=== PATIENT | female | born 1955 | race Caucasian/White ===

== ENCOUNTER 2018-08-02 21:43 | Inpatient (IN) | payer MEDICARE, MEDICAID ==
[2018-08-02] MEDS ORDERED: Sodium Chloride 0.9% 1,000 ML IV SCH (22:00)
--- NOTE | 2018-08-02 22:06 | ED PDOC ---
HPI:STROKE - Time Time: 22:03 - Historian Historian: Patient, EMS - Chief Complaint Chief Complaint: Weakness - Onset Date: 08/01/18 (possibly yesterday) Time: 07:00 (unclear) - TPA Positive for Contraindication: Yes Reason tPA is not being Administered: found on the ground so possible head injury; unclear time of onset - Notes: Notes:: Pt. was found on the ground so EMS called. Pt. baseline is delayed reaction and cognitively delayed. Pt. states she has been having weakness, unclear since when. Has runny nose, nasal congestion. No chest pain, numbness, tingles, h eadaches, dizziness, abd pain, neck pain, leg or arm pain. When ambulated, was found to have an unsteady gait. NIHSS Stroke Scale - Date/Time Evaluation Performed Date Performed: 08/02/18 Time Performed: 22:00 When Was NIHSS Performed: Baseline - How Severe is the Stroke Level of Consciousness: 0=Alert LOC to Questions: 0=Both comments correct LOC to commands: 0=Obeys both correctly Best Gaze: 0=Normal Visual: 0=No visual loss Facial: 0=Normal Motor Arm - Left: 0=No drift Motor Arm - Right: 0=No drift Motor Leg - Left: 2=Falls before 5 sec Motor Leg - Right: 2=Falls before 5 sec Limb Ataxia: 1=Present Upper or Lower Sensory: 0=Normal Best Language: 0=No aphasia Dysarthia: 0=Normal articulation Extinction & Inattention (Neglect): 0=Normal, no object Score: 5 rTPA Inclusion/Exclusion - Refusal of Treatment Patient Refused Treatment: No - Inclusion Criteria for Altepase Patient is 18 years or Older: Yes The Clinical Diagnosis of Ischemic Stroke That is Causing a Potentially Disabling Neurological Deficit: No Time of Onset is Well Established to be Less Than 270 Minute Before Treatment Would Begin: No Risk/Benefit Discussed With Patient/Family Member Present: No Past Medical History Reviewed: Historical Data, Nursing Documentation, Vital Signs Vital Signs: Last Vital Signs Temp 100.2 F H 08/02/18 21:49 Pulse 82 08/02/18 21:49 Resp 16 08/02/18 21:49 BP 151/66 H 08/02/18 21:49 Pulse Ox 97 08/02/18 21:49 - Medical History PMH: Diabetes, HTN, Hypercholesterolemia - Family History Family History: States: Unknown Family Hx - Living Arrangements Living Arrangements: Residential/Assist Lvng - Immunization History Hx Tetanus Toxoid Vaccination: Yes Hx Influenza Vaccination: Yes Hx Pneumococcal Vaccination: Yes - Home Medications Home Medications: Ambulatory Orders Medication Instructions Recorded amLODIPine [Norvasc] 10 mg PO DAILY 01/08/15 Acyclovir/Hydrocortisone [Xerese 1 appl TOP PRN PRN 08/02/18 5%-1% Cream] Aspirin [Aspirin EC] 325 mg PO DAILY 08/02/18 Carvedilol [Coreg] 25 mg PO BID 08/02/18 Clozapine [Fazaclo] 200 mg PO HS 08/02/18 Colesevelam HCl [Welchol] 3.75 gm PO PRN PRN 08/02/18 Divalproex [Depakote ER(ONCE 1,250 mg PO HS 08/02/18 DAILY)] Escitalopram [Lexapro] 10 mg PO HS 08/02/18 Insulin Glargine,Hum.rec.anlog 15 units SQ HS 08/02/18 [Basaglar Kwikpen U-100] Insulin Glargine,Hum.rec.anlog 15 unit SQ HS PRN 08/02/18 [Lantus Solostar] Levothyroxine [Synthroid] 100 mcg PO DAILY 08/02/18 Linagliptin [Tradjenta] 5 mg PO HS 08/02/18 Losartan [Cozaar] 50 mg PO DAILY 08/02/18 Mv-Min/Folic/Vit K/Lycop/Coq10 1 tab PO DAILY 08/02/18 [Daily Multivitamin Capsule] Omeprazole 20 mg PO DAILY 08/02/18 Simvastatin [Zocor] 20 mg PO HS 08/02/18 metFORMIN [glucOPHAGE] 850 mg PO BID 08/02/18 - Allergies Allergies/Adverse Reactions: Allergies Allergy/AdvReac Type Severity Reaction Status Date / Time No Known Allergies Allergy Verified 08/02/18 21:49 Review of Systems ROS Statement: Except As Marked, All Systems Reviewed And Found Negative Constitutional: Positive for: Weakness ENT: Positive for: Nose Pain, Nose Congestion Neurological: Positive for: Weakness, Incoordination Physical Exam - Reviewed Nursing Documentation Reviewed: Yes Vital Signs Reviewed: Yes - Physical Exam Appears: Positive for: Non-toxic, No Acute Distress Head Exam: Positive for: ATRAUMATIC, NORMAL INSPECTION, NORMOCEPHALIC Skin: Positive for: Normal Color, Warm, DRY Eye Exam: Positive for: EOMI, Normal appearance, PERRL ENT: Positive for: Nasal Congestion. Negative for: Pharyngeal Erythema, Tonsillar Exudate Neck: Positive for: Normal, Painless ROM, Supple Cardiovascular/Chest: Positive for: Regular Rate, Rhythm Respiratory: Positive for: CNT, Normal Breath Sounds Gastrointestinal/Abdominal: Positive for: Normal Exam, Soft. Negative for: Tenderness Back: Positive for: Normal Inspection. Negative for: L CVA Tenderness, R CVA Tenderness Extremity: Negative for: Normal ROM (moving extremities, but strength 3/5 all extremities), Tenderness, Pedal Edema, Calf Tenderness Neurologic/Psych: Positive for: Alert, drying room attendant II-XII, Oriented. Negative for: Motor/Sensory Deficits (3/5 strength all extremities), Aphasia, Facial Droop - Laboratory Results Result Diagrams: 08/02/18 22:20 08/02/18 22:20 Interpretation Of Abn Labs: 17.2 wbc, 19 bands, lactate elevated - ECG ECG: Positive for: Interpreted By Me, Viewed By Me ECG Rhythm: Positive for: Normal QRS, Sinus Rhythm O2 Sat by Pulse Oximetry: 97 Pulse Ox Interpretation: Normal - Radiology X-Ray: Interpreted by Me, Read By Radiologist X-Ray Interpretation: Infiltrates (perihilar L) - CT Scan/US head Other Rad Studies (CT/US): Read By Radiologist Other Rad Interpretation: no acute - Progress ED Course And Treament: 2322: Pt. communicating. Feels better. Will need admission. Meets severe sepsis criteria. 2350: Pt. stable. Spoke with Dr. Peña who will admit. - Critical Care Total Time (In Min): 30 Documented Critical Care: Time excludes all time spent performint seperately billable procedures Disposition - Clinical Impression Clinical Impression: Pneumonia, Severe sepsis - Patient ED Disposition Is Patient to be Admitted: Yes Counseled Patient/Family Regarding: Studies Performed, Diagnosis - Disposition Disposition Time: 23:35 Condition: FAIR - POA Present On Arrival: Falls Or Trauma (possibly; found on the ground at [facility])
[2018-08-02 22:26] LABS: BASO # 0.1 K/uL (0.0-0.2); BASO % 0.5 % (0.0-2.0); EOS % 0.2 % (0.0-4.0); HEMOGLOBIN 10.7 g/dL (12.0-16.0); LYMPH # 2.3 K/uL (1.0-4.3); LYMPH % 13.3 % (20.0-40.0); MEAN CORPUSCULAR HGB CONC 32.9 g/dL (33.0-37.0); MEAN PLATELET VOLUME 8.5 fl (7.2-11.7); MONO # 1.4 K/uL (0.0-0.8); MONO % 8.2 % (0.0-10.0); NEUT # 13.4 K/uL (1.8-7.0); NEUT % 77.8 % (50.0-75.0); PLATELET COUNT 288 K/uL (130-400); RED CELL DISTRIBUTION WIDTH 15.2 % (11.5-14.5); WHITE BLOOD COUNT 17.2 K/uL (4.8-10.8)
[2018-08-02 22:28] LABS: VENOUS BLOOD GAS PCO2 40 mmHg (40-60); VENOUS BLOOD GAS PO2 51 mm/Hg (30-55); VENOUS BLOOD PH 7.43 (7.32-7.43)
[2018-08-02 22:31] LABS: INR 1.1
[2018-08-02 22:33] LABS: PARTIAL THROMBOPLASTIN TIME 31.5 Seconds (25.6-37.1)
[2018-08-02 22:36] LABS: ALB/GLOB RATIO 1.1 (1.0-2.1); ALBUMIN 3.7 g/dL (3.5-5.0); ALT/SGPT 27 U/L (9-52); AST/SGOT 32 U/L (14-36); BLOOD UREA NITROGEN 14 mg/dl (7-17); CALCIUM 9.1 mg/dL (8.4-10.2); GFR NON-AFRICAN AMERICAN > 60; HDL CHOLESTEROL 41 MG/DL (30-70)
[2018-08-02 22:48] LABS: B-TYPE NATRIURETIC PEPTIDE 994 pg/ml (0-900)
[2018-08-02 22:59] LABS: LDL CHOLESTEROL 135 mg/dL (0-129)
[2018-08-02 23:05] LABS: ANISOCYTOSIS SLIGHT; BANDS 19 % (0-2); EOSINOPHIL 1 % (0-7); HYPOCHROMIC SLIGHT; LYMPHOCYTE 18 % (20-50); MICROCYTOSIS SLIGHT; MONOCYTE 4 % (0-10); NEUTROPHIL 58 % (42-75); PLATELET ESTIMATE NORMAL (NORMAL); TOTAL CELLS COUNTED 100; TOXIC GRANULATION PRESENT
[2018-08-02] MEDS ORDERED: Piperacillin/Tazobact 3.375 GM in Sodium Chloride 0.9% 100 ML IV STA (23:22)
[2018-08-02] MEDS ORDERED: Sodium Chloride 0.9% 1,000 ML IV STA (23:24)
[2018-08-02] MEDS ORDERED: Piperacillin/Tazobact 3.375 gm Inj IVPB ONE (23:26)
[2018-08-02 23:54] LABS: SQUAMOUS EPITHIAL < 1 /hpf (0-5); URINE BILIRUBIN NEGATIVE (NEGATIVE); URINE BLOOD NEGATIVE (NEGATIVE); URINE CLARITY SLIGHTY-CLOUDY (Clear); URINE COLOR YELLOW (YELLOW); URINE GLUCOSE (UA) NEG (Normal); URINE LEUKOCYTE ESTERASE NEG Leu/uL (Negative); URINE PROTEIN >=500 mg/dL (NEGATIVE)
[2018-08-03] MEDS ORDERED: Vancomycin 1 g Inj ONE (00:41)
[2018-08-03] MEDS: Lactated Ringer's 1,000 ML IV SCH ×4 (00:52→12:41)
--- NOTE | 2018-08-03 01:10 | CP.PCM.HP ---
Addendum entered and electronically signed by Kameron Beckwith MD 08/03/18 12:21: Patient seen and examined bedside.All chart and clinical data reviewed . Case discussed with resident. Agree with assessment and plan. Patient is a 62 y/o female with PMH schizofrenia, HTN, DM sent from intermediate for fall. In ED found to be febrile with elevated WBC count , bandemia,elevated lactic acid Repeat CXR showed:Interval patchy atelectasis or infiltrate right base and left perihilar/medial basilar distributions. Stable prominent cardiac silhouette. No definite pulmonary vascular congestion. ID consult appreciated Continue vanco / Zosyn and zithromax as per ID Follow up cultures Addendum entered and electronically signed by Radha Kim MD 08/03/18 11:34: S: Pt is seen and examined by bedside this AM. Daughter Kym present [phone] Pt states that she has not been feeling well for the past few days and has been coughing since Friday. Pt is lathergic, but awake alert and oriented. Endorsing mild dyspnea and chills. O: VS reviewed, mild elevated bp afebrile GEN: lethargic and shaking HEENT: EOMI C: S1S2 no additional heart sounds L: decrease breath in the lower lobes, mild rhonchi in RLL A: obese, NT, BS+ Neuro: AAO x 3 Ext: NT, no edema A/P: 62 YO female from a intermediate, with hx of DM II, Schizophrenia and HTN is admitted for sepsis and pneumonia. Labs sig for Leukocytosis with bandemia. -cultures pending -will repeat CXR today -ID consulted, follow up recs -uncontrolled hypothyroidism; will decrease levo to 50mcg daily -cont IVF and abx (d/c rocephin) Original Note: <Hawa Tripp - Last Filed: 08/03/18 03:33> History of Present Illness - History of Present Illness History of Present Illness: History obtained from the patient and medical chart. 62 year old female brought in by EMS s/p fall. She is lethargic and diaphoretic upon evaluation in ED. Patient lives in a intermediate, states she fell in her room after she stood up from lying in bed. She states she had a cold yesterday, has been having cough. No other complaints. Unclear if patient had loss of consciousness. PMH: schizophrenia, HTN, IDDM, Hypothyroidism, gastritis Medication list from intermediate reviewed. Present on Admission - Present on Admission Any Indicators Present on Admission: No Review of Systems - Review of Systems Systems not reviewed;Unavailable: Acuity of Condition Past Patient History - Past Social History Smoking Status: Light Smoker < 10 Cigarettes Daily - CARDIAC Hx Hypercholesterolemia: Yes Hx Hypertension: Yes - ENDOCRINE/METABOLIC Hx Endocrine Disorders: Yes Hx Diabetes Mellitus Type 2: Yes Hx Hypothyroidism: Yes - PSYCHIATRIC Hx Psychophysiologic Disorder: Yes Hx Depression: Yes Hx Schizophrenia: Yes Hx Substance Use: No Meds Allergies/Adverse Reactions: Allergies Allergy/AdvReac Type Severity Reaction Status Date / Time No Known Allergies Allergy Verified 08/02/18 21:49 Physical Exam - Constitutional Appears: Other (lethargic) - Head Exam Head Exam: ATRAUMATIC, NORMAL INSPECTION, NORMOCEPHALIC - Eye Exam Eye Exam: Normal appearance, PERRL - ENT Exam ENT Exam: Mucous Membranes Moist - Neck Exam Neck exam: Positive for: Normal Inspection - Respiratory Exam Respiratory Exam: Decreased Breath Sounds (transmitted breath sounds, no rhonchi, scattered wheezing, tachypneic) - Cardiovascular Exam Cardiovascular Exam: REGULAR RHYTHM, +S1, +S2 - GI/Abdominal Exam GI & Abdominal Exam: Diminished Bowel Sounds, Normal Bowel Sounds, Soft (abominal fullness). absent: Firm, Guarding, Tenderness - Rectal Exam Rectal Exam: Deferred - Extremities Exam Extremities exam: Positive for: normal inspection. Negative for: pedal edema - Back Exam Back exam: NORMAL INSPECTION - Neurological Exam Neurological exam: Altered - Skin Skin Exam: Diaphoretic, Intact Results - Vital Signs Recent Vital Signs: Last Vital Signs Temp 98.5 F 08/03/18 00:15 Pulse 83 08/03/18 00:15 Resp 20 08/03/18 00:15 BP 149/79 08/03/18 00:15 Pulse Ox 93 L 08/03/18 00:15 - Labs Result Diagrams: 08/02/18 22:20 08/02/18 22:20 Labs: Laboratory Results - last 24 hr 08/02/18 08/02/18 08/02/18 22:20 22:20 22:20 WBC 17.2 H RBC 4.10 Hgb 10.7 L Hct 32.4 L MCV 79.0 L MCH 26.0 L MCHC 32.9 L RDW 15.2 H Plt Count 288 MPV 8.5 Neut % (Auto) 77.8 H Lymph % (Auto) 13.3 L [place] % (Auto) 8.2 Eos % (Auto) 0.2 Baso % (Auto) 0.5 Neut # (Auto) 13.4 H Lymph # (Auto) 2.3 [place] # (Auto) 1.4 H Eos # (Auto) 0.0 Baso # (Auto) 0.1 Neutrophils % (Manual) 58 Band Neutrophils % 19 H* Lymphocytes % (Manual) 18 L Monocytes % (Manual) 4 Eosinophils % (Manual) 1 Toxic Granulation Present Platelet Estimate Normal Hypochromasia (manual) Slight Anisocytosis (manual) Slight Microcytosis (manual) Slight PT 13.0 INR 1.1 APTT 31.5 pO2 VBG pH VBG pCO2 VBG HCO3 VBG Total CO2 VBG O2 Sat (Calc) VBG Base Excess VBG Potassium Glucose Lactate FiO2 Sodium 136 Potassium 4.0 Chloride 100 Carbon Dioxide 22 Anion Gap 18 BUN 14 Creatinine 0.6 L Est GFR ( Amer) > 60 Est GFR (Non-Af Amer) > 60 Random Glucose 177 H Calcium 9.1 Total Bilirubin 0.3 AST 32 ALT 27 Alkaline Phosphatase 79 Troponin I 0.0170 NT-Pro-B Natriuret Pep 994 H Total Protein 7.1 Albumin 3.7 Globulin 3.5 Albumin/Globulin Ratio 1.1 Triglycerides 294 H Cholesterol 244 H LDL Cholesterol Direct 135 H HDL Cholesterol 41 Venous Blood Potassium Urine Color Urine Clarity Urine pH Ur Specific [place] Urine Protein Urine Glucose (UA) Urine Ketones Urine Blood Urine Nitrate Urine Bilirubin Urine Urobilinogen Ur Leukocyte Esterase Urine RBC (Auto) Urine Microscopic WBC Ur Squamous Epith Cells Influenza Typ A,B (EIA) Blood Type Antibody Screen BBK History Checked 08/02/18 08/02/18 08/02/18 22:20 22:24 22:58 WBC RBC Hgb Hct MCV MCH MCHC RDW Plt Count MPV Neut % (Auto) Lymph % (Auto) [place] % (Auto) Eos % (Auto) Baso % (Auto) Neut # (Auto) Lymph # (Auto) [place] # (Auto) Eos # (Auto) Baso # (Auto) Neutrophils % (Manual) Band Neutrophils % Lymphocytes % (Manual) Monocytes % (Manual) Eosinophils % (Manual) Toxic Granulation Platelet Estimate Hypochromasia (manual) Anisocytosis (manual) Microcytosis (manual) PT INR APTT pO2 51 VBG pH 7.43 VBG pCO2 40 VBG HCO3 26.2 VBG Total CO2 27.7 VBG O2 Sat (Calc) 87.7 H VBG Base Excess 2.0 VBG Potassium 4.0 Glucose 188 H Lactate 3.2 H FiO2 21.0 Sodium 133.0 Potassium Chloride 99.0 Carbon Dioxide Anion Gap BUN Creatinine Est GFR ( Amer) Est GFR (Non-Af Amer) Random Glucose Calcium Total Bilirubin AST ALT Alkaline Phosphatase Troponin I NT-Pro-B Natriuret Pep Total Protein Albumin Globulin Albumin/Globulin Ratio Triglycerides Cholesterol LDL Cholesterol Direct HDL Cholesterol Venous Blood Potassium 4.0 Urine Color Yellow Urine Clarity Slighty-cloudy Urine pH 6.0 Ur Specific [place] 1.017 Urine Protein >=500 Urine Glucose (UA) Neg Urine Ketones Trace Urine Blood Negative Urine Nitrate Negative Urine Bilirubin Negative Urine Urobilinogen 4.0 H Ur Leukocyte Esterase Neg Urine RBC (Auto) 5 H Urine Microscopic WBC 1 Ur Squamous Epith Cells < 1 Influenza Typ A,B (EIA) Blood Type A POSITIVE Antibody Screen Negative BBK History Checked No verified bt 08/02/18 23:20 WBC RBC Hgb Hct MCV MCH MCHC RDW Plt Count MPV Neut % (Auto) Lymph % (Auto) [place] % (Auto) Eos % (Auto) Baso % (Auto) Neut # (Auto) Lymph # (Auto) [place] # (Auto) Eos # (Auto) Baso # (Auto) Neutrophils % (Manual) Band Neutrophils % Lymphocytes % (Manual) Monocytes % (Manual) Eosinophils % (Manual) Toxic Granulation Platelet Estimate Hypochromasia (manual) Anisocytosis (manual) Microcytosis (manual) PT INR APTT pO2 VBG pH VBG pCO2 VBG HCO3 VBG Total CO2 VBG O2 Sat (Calc) VBG Base Excess VBG Potassium Glucose Lactate FiO2 Sodium Potassium Chloride Carbon Dioxide Anion Gap BUN Creatinine Est GFR ( Amer) Est GFR (Non-Af Amer) Random Glucose Calcium Total Bilirubin AST ALT Alkaline Phosphatase Troponin I NT-Pro-B Natriuret Pep Total Protein Albumin Globulin Albumin/Globulin Ratio Triglycerides Cholesterol LDL Cholesterol Direct HDL Cholesterol Venous Blood Potassium Urine Color Urine Clarity Urine pH Ur Specific [place] Urine Protein Urine Glucose (UA) Urine Ketones Urine Blood Urine Nitrate Urine Bilirubin Urine Urobilinogen Ur Leukocyte Esterase Urine RBC (Auto) Urine Microscopic WBC Ur Squamous Epith Cells Influenza Typ A,B (EIA) Negative for flu a/b Blood Type Antibody Screen BBK History Checked Assessment & Plan - Assessment and Plan (Free Text) Assessment: 62 year old female admitted s/p fall. Patient is febrile with leukocytosis +bands. She is diaphoretic and tachypneic and dyspneic in ED. O2 sat 94% on 2 L NC. Sepsis thought to be secondary to pneumonia. UA +proteinuria. Flu negative. CT Head report pending. CXR report pending. #Severe sepsis likely secondary to pneumonia #AMS #Proteinuria #IDDM #HTN #Hypothyroidism #DVT prophylaxis -Rocephin/Azithromycin -IVF @ 250cc/hr -Resume home medications -CXR report pending -Follow up procalcitonin, tsh, lactic acid and cultures Case seen, examined and discussed with attending <Leonardo Peña - Last Filed: 08/03/18 04:10> Results - Vital Signs Recent Vital Signs: Last Vital Signs Temp 97.9 F 08/03/18 02:54 Pulse 79 08/03/18 02:54 Resp 20 08/03/18 02:54 BP 145/77 08/03/18 02:54 Pulse Ox 93 L 08/03/18 02:54 - Labs Result Diagrams: 08/02/18 22:20 08/02/18 22:20 Labs: Laboratory Results - last 24 hr 08/02/18 08/02/18 08/02/18 22:20 22:20 22:20 WBC 17.2 H RBC 4.10 Hgb 10.7 L Hct 32.4 L MCV 79.0 L MCH 26.0 L MCHC 32.9 L RDW 15.2 H Plt Count 288 MPV 8.5 Neut % (Auto) 77.8 H Lymph % (Auto) 13.3 L [place] % (Auto) 8.2 Eos % (Auto) 0.2 Baso % (Auto) 0.5 Neut # (Auto) 13.4 H Lymph # (Auto) 2.3 [place] # (Auto) 1.4 H Eos # (Auto) 0.0 Baso # (Auto) 0.1 Neutrophils % (Manual) 58 Band Neutrophils % 19 H* Lymphocytes % (Manual) 18 L Monocytes % (Manual) 4 Eosinophils % (Manual) 1 Toxic Granulation Present Platelet Estimate Normal Hypochromasia (manual) Slight Anisocytosis (manual) Slight Microcytosis (manual) Slight PT 13.0 INR 1.1 APTT 31.5 pO2 VBG pH VBG pCO2 VBG HCO3 VBG Total CO2 VBG O2 Sat (Calc) VBG Base Excess VBG Potassium Glucose Lactate FiO2 Sodium 136 Potassium 4.0 Chloride 100 Carbon Dioxide 22 Anion Gap 18 BUN 14 Creatinine 0.6 L Est GFR ( Amer) > 60 Est GFR (Non-Af Amer) > 60 Random Glucose 177 H Calcium 9.1 Total Bilirubin 0.3 AST 32 ALT 27 Alkaline Phosphatase 79 Troponin I 0.0170 NT-Pro-B Natriuret Pep 994 H Total Protein 7.1 Albumin 3.7 Globulin 3.5 Albumin/Globulin Ratio 1.1 Triglycerides 294 H Cholesterol 244 H LDL Cholesterol Direct 135 H HDL Cholesterol 41 Venous Blood Potassium Urine Color Urine Clarity Urine pH Ur Specific [place] Urine Protein Urine Glucose (UA) Urine Ketones Urine Blood Urine Nitrate Urine Bilirubin Urine Urobilinogen Ur Leukocyte Esterase Urine RBC (Auto) Urine Microscopic WBC Ur Squamous Epith Cells Influenza Typ A,B (EIA) Blood Type Antibody Screen BBK History Checked 08/02/18 08/02/18 08/02/18 22:20 22:24 22:58 WBC RBC Hgb Hct MCV MCH MCHC RDW Plt Count MPV Neut % (Auto) Lymph % (Auto) [place] % (Auto) Eos % (Auto) Baso % (Auto) Neut # (Auto) Lymph # (Auto) [place] # (Auto) Eos # (Auto) Baso # (Auto) Neutrophils % (Manual) Band Neutrophils % Lymphocytes % (Manual) Monocytes % (Manual) Eosinophils % (Manual) Toxic Granulation Platelet Estimate Hypochromasia (manual) Anisocytosis (manual) Microcytosis (manual) PT INR APTT pO2 51 VBG pH 7.43 VBG pCO2 40 VBG HCO3 26.2 VBG Total CO2 27.7 VBG O2 Sat (Calc) 87.7 H VBG Base Excess 2.0 VBG Potassium 4.0 Glucose 188 H Lactate 3.2 H FiO2 21.0 Sodium 133.0 Potassium Chloride 99.0 Carbon Dioxide Anion Gap BUN Creatinine Est GFR ( Amer) Est GFR (Non-Af Amer) Random Glucose Calcium Total Bilirubin AST ALT Alkaline Phosphatase Troponin I NT-Pro-B Natriuret Pep Total Protein Albumin Globulin Albumin/Globulin Ratio Triglycerides Cholesterol LDL Cholesterol Direct HDL Cholesterol Venous Blood Potassium 4.0 Urine Color Yellow Urine Clarity Slighty-cloudy Urine pH 6.0 Ur Specific [place] 1.017 Urine Protein >=500 Urine Glucose (UA) Neg Urine Ketones Trace Urine Blood Negative Urine Nitrate Negative Urine Bilirubin Negative Urine Urobilinogen 4.0 H Ur Leukocyte Esterase Neg Urine RBC (Auto) 5 H Urine Microscopic WBC 1 Ur Squamous Epith Cells < 1 Influenza Typ A,B (EIA) Blood Type A POSITIVE Antibody Screen Negative BBK History Checked No verified bt 08/02/18 08/03/18 23:20 02:09 WBC RBC Hgb Hct MCV MCH MCHC RDW Plt Count MPV Neut % (Auto) Lymph % (Auto) [place] % (Auto) Eos % (Auto) Baso % (Auto) Neut # (Auto) Lymph # (Auto) [place] # (Auto) Eos # (Auto) Baso # (Auto) Neutrophils % (Manual) Band Neutrophils % Lymphocytes % (Manual) Monocytes % (Manual) Eosinophils % (Manual) Toxic Granulation Platelet Estimate Hypochromasia (manual) Anisocytosis (manual) Microcytosis (manual) PT INR APTT pO2 51 VBG pH 7.39 VBG pCO2 41 VBG HCO3 24.4 VBG Total CO2 26.1 VBG O2 Sat (Calc) 87.5 H VBG Base Excess -0.2 L VBG Potassium 3.7 Glucose 182 H Lactate 2.8 H FiO2 21.0 Sodium 135.0 Potassium Chloride 103.0 Carbon Dioxide Anion Gap BUN Creatinine Est GFR ( Amer) Est GFR (Non-Af Amer) Random Glucose Calcium Total Bilirubin AST ALT Alkaline Phosphatase Troponin I NT-Pro-B Natriuret Pep Total Protein Albumin Globulin Albumin/Globulin Ratio Triglycerides Cholesterol LDL Cholesterol Direct HDL Cholesterol Venous Blood Potassium 3.7 Urine Color Urine Clarity Urine pH Ur Specific [place] Urine Protein Urine Glucose (UA) Urine Ketones Urine Blood Urine Nitrate Urine Bilirubin Urine Urobilinogen Ur Leukocyte Esterase Urine RBC (Auto) Urine Microscopic WBC Ur Squamous Epith Cells Influenza Typ A,B (EIA) Negative for flu a/b Blood Type Antibody Screen BBK History Checked Attending/Attestation - Attestation I have personally seen and examined this patient.: Yes I have fully participated in the care of the patient.: Yes I have reviewed all pertinent clinical information: Yes Notes (Text): 08/03/18 03:46 I saw and examined this patient shoulder to shoulder with Dr Tripp. I agree with the assessment and plan. This is a 62 years old female from a intermediate, with hx of DM II, Schizophrenia and HTN who was found in an altered mental status,generalized weakness, unsteady gait, coughing, running nose and not able to give a good hx. Comes with fever, leukocytosis with left shift and elevated lactate. A&P #. AMA due to Toxic Encephalopathy from the sepsis - Treat sepsis - Monitor vital signs #. Pneumonia with sepsis. Probably atypical. look for bacteremia - Consult Dr Castorena ID - Blood culture - Urine culture - Procalcitonin - Cold agglutinins - Azithromycin - Ceftriaxone - Vancomycin - IV fluids - Follow lactate #.DM II - Continue Home Diabetic medication - Lispro insulin Sliding Scale according to Accucheck - Levemir - HbA1c Leonardo Peña MD 08/03/18 04:09
[2018-08-03] MEDS ORDERED: ACYCLOVIR TOP PRN (01:25)
[2018-08-03] MEDS ORDERED: HYDROCORTISONE TOP PRN (01:25)
[2018-08-03] MEDS ORDERED: INSULIN GLARGINE HUM REC ANLOG 15 UNIT SQ PRN (01:25)
[2018-08-03] MEDS ORDERED: COLESEVELAM HCL 3.75 GM PO PRN (01:25)
[2018-08-03 02:16] LABS: VENOUS BLOOD GAS BASE EXCESS -0.2 mmol/L (0.0-2.0); VENOUS BLOOD GAS PCO2 41 mmHg (40-60); VENOUS BLOOD GAS PO2 51 mm/Hg (30-55); VENOUS BLOOD PH 7.39 (7.32-7.43)
[2018-08-03] MEDS ORDERED: Glucagon Recombinant 1 mg Inj IM PRN (03:35)
[2018-08-03] MEDS ORDERED: Dextrose 50% SYRINGE Inj (50 ml) IV PRN (03:35)
[2018-08-03] MEDS ORDERED: Sodium Chloride 0.9% 1,000 ML IV SCH ×2 (03:38→13:30)
[2018-08-03 05:32] LABS: BASO # 0.1 K/uL (0.0-0.2); BASO % 0.7 % (0.0-2.0); EOS # 0.1 K/uL (0.0-0.7); EOS % 0.5 % (0.0-4.0); LYMPH # 2.1 K/uL (1.0-4.3); LYMPH % 15.7 % (20.0-40.0); MEAN CELL VOLUME 79.3 fl (81.0-99.0); MEAN CORPUSCULAR HEMOGLOBIN 26.8 pg (27.0-31.0); MEAN CORPUSCULAR HGB CONC 33.8 g/dL (33.0-37.0); MEAN PLATELET VOLUME 8.3 fl (7.2-11.7); MONO # 1.2 K/uL (0.0-0.8); MONO % 8.5 % (0.0-10.0); NEUT # 10.1 K/uL (1.8-7.0); NEUT % 74.6 % (50.0-75.0); NRBC % 0.1 % (0.0-0.0); RBC 3.75 Mil/uL (3.80-5.20); RED CELL DISTRIBUTION WIDTH 15.3 % (11.5-14.5); WHITE BLOOD COUNT 13.6 K/uL (4.8-10.8)
[2018-08-03] MEDS: Albuterol 0.083% Inhal Sol (2.5 mg/3 mL) UD INH SCH ×4 (05:40→19:40)
[2018-08-03] MEDS ORDERED: Levothyroxine 100 MCG TAB PO SCH (06:30)
[2018-08-03 07:43] LABS: BLOOD UREA NITROGEN 12 mg/dl (7-17); CALCIUM 8.7 mg/dL (8.4-10.2); GFR NON-AFRICAN AMERICAN > 60
[2018-08-03] MEDS ORDERED: Sodium Chloride 3% for Inhalation 4 ML VIAL.NEB IH PRN (08:08)
[2018-08-03] MEDS ORDERED: LYCOP PO SCH (09:00)
[2018-08-03] MEDS ORDERED: Pantoprazole 40 mg EC Tab PO SCH (09:00)
[2018-08-03] MEDS ORDERED: VIT K PO SCH (09:00)
[2018-08-03] MEDS ORDERED: COQ10 PO SCH (09:00)
[2018-08-03] MEDS ORDERED: FOLIC PO SCH (09:00)
[2018-08-03] MEDS ORDERED: MV MIN PO SCH (09:00)
[2018-08-03] MEDS: Insulin Lispro (humaLOG) 100 Units/ml Inj SC SCH ×4 (10:31→21:36)
[2018-08-03] MEDS: Azithromycin 500 MG in Sodium Chloride 0.9% 250 ML IVPB SCH (10:32)
[2018-08-03] MEDS: Multivitamin With Minerals Tab PO SCH (10:38)
[2018-08-03] MEDS: Aspirin 325 mg EC Tablets PO SCH (10:39)
[2018-08-03] MEDS: Pantoprazole 20 mg EC Tab PO SCH (10:39)
[2018-08-03] MEDS: Enoxaparin 40 mg Syringe SC SCH (10:40)
--- NOTE | 2018-08-03 10:44 | RAD ---
Date of service: 08/03/2018 HISTORY: cough COMPARISON: Portable chest 08/02/2018. TECHNIQUE: Chest PA and lateral FINDINGS: LUNGS: Patient rotated toward the right. Patchy airspace disease developing in the right base and is borderline at the left perihilar and medial basilar regions. PLEURA: No significant pleural effusion identified. No pneumothorax apparent. CARDIOVASCULAR: No aortic atherosclerotic calcification present. Prominent cardiac silhouette remains. no pulmonary vascular congestion. OSSEOUS STRUCTURES: No significant abnormalities. VISUALIZED UPPER ABDOMEN: Normal. OTHER FINDINGS: None. IMPRESSION: Interval patchy atelectasis or infiltrate right base and left perihilar/medial basilar distributions. Stable prominent cardiac silhouette. No definite pulmonary vascular congestion.
--- NOTE | 2018-08-03 10:51 | RAD ---
Date of service: 08/02/2018 HISTORY: Code Stroke COMPARISON: Chest radiographs 03/20/2012. FINDINGS: LUNGS: Patient rotated toward the right accentuating left hilar vascular markings. No acute airspace disease identified bilaterally. PLEURA: No significant pleural effusion identified, no pneumothorax apparent. CARDIOVASCULAR: Calcific atherosclerotic changes are seen related to the thoracic aorta. Normal cardiac size. No pulmonary vascular congestion. OSSEOUS STRUCTURES: No significant abnormalities. VISUALIZED UPPER ABDOMEN: Normal. OTHER FINDINGS: None. IMPRESSION: No interval acute cardiopulmonary disease appreciated.
--- NOTE | 2018-08-03 10:55 | CP.PCM.CON ---
History of Present Illness - History of Present Illness History of Present Illness: 62 year old female brought in by EMS s/p fall. [facility], and fell in her room She states she had a cold yesterday, has been having cough. No other complaints. admitted to [facility] with sepsis and pneumonia with impending resp failure ID consulted for this appears weak SOB and septic- Vanco / Zosyn added for possible aspiration pneumonia in a jail setting Cont z max for now pending cultures and serologies PMH: schizophrenia, HTN, IDDM, Hypothyroidism, gastritis Medication list reviewed. Review of Systems - Review of Systems Systems not reviewed;Unavailable: Altered Mental Status All systems: reviewed and no additional remarkable complaints except - Constitutional Constitutional: As Per HPI, Chills, Fever - EENT Eyes: absent: As Per HPI, Blind Spots, Blurred Vision, Change in Vision, Decreased Night Vision, Diplopia, Discharge, Dry Eye, Exophthalmos, Floaters, Irritation, Itchy Eyes, Loss of Peripheral Vision, Pain, Photophobia, Requires Corrective Lenses, Sees Flashes, Spots in Vision, Tunnel Vision, Other Visual Disturbances, Loss of Vision, Other Ears: absent: As Per HPI, Decreased Hearing, Ear Discharge, Ear Pain, Tinnitus, Abnormal Hearing, Disequilibrium, Dizziness, Other Nose/Mouth/Throat: absent: As Per HPI, Epistaxis, Nasal Congestion, Nasal Discharge, Nasal Obstruction, Nasal Trauma, Nose Pain, Post Nasal Drip, Sinus Pain, Sinus Pressure, Bleeding Gums, Change in Voice, Dental Pain, Dry Mouth, Dysphagia, Halitosis, Hoarsness, Lip Swelling, Mouth Lesions, Mouth Pain, Odynophagia, Sore Throat, Throat Swelling, Tongue Swelling, Facial Pain, Neck Pain, Neck Mass, Other - Breasts Breasts: absent: As Per HPI, Change in Shape, Mass, Pain, Nipple Discharge, Nipple Inversion, Skin Changes, Swelling, Other - Cardiovascular Cardiovascular: absent: As Per HPI, Acrocyanosis, Chest Pain, Chest Pain at Rest, Chest Pain with Activity, Claudication, Diaphoresis, Dyspnea, Dyspnea on E xertion, Edema, Irregular Heart Rhythm, Pain Radiating to Arm/Neck/Jaw, Leg Edema, Leg Ulcers, Lightheadedness, Orthopnea, Palpitations, Paroxysmal Nocturnal Dyspnea, Pedal Edema, Radiating Pain, Rapid Heart Rate, Slow Heart Rate, Syncope, Other - Respiratory Respiratory: As Per HPI - Gastrointestinal Gastrointestinal: absent: As Per HPI, Abdominal Pain, Belching, Bloating, Change in Bowel Habits, Change in Stool Character, Coffee Ground Emesis, Constipation, Cramping, Diarrhea, Dyspepsia, Dysphagia, Early Satiety, Excessive Flatus, Fecal Incontinence, Heartburn, Hematemesis, Hematochezia, Loose Stools, Melena, [place] sea, Odynophagia, Temesmus, Vomiting, Other - Genitourinary Genitourinary: absent: As Per HPI, Change in Urinary Stream, Difficulty Urinating, Dysuria, Flank Pain, Hematuria, Pyuria, Nocturia, Urinary Incontinence, Urinary Frequency, Urinary Hesitance, Urinary Urgency, Voiding Freq/Small Amts, Freq UTI, Hx Renal/Bladder Calculi, Hx /Renal Surgery, Bladder Distension, Other - Reproductive: Female Reproductive:Female: absent: As Per HPI, Amenorrhea, Amenorrhea/ Control, Currently Menstual, Cycle <21 Days, Cycle >35 Days, Cycle Variable, Menses 1-7 Days, Menses >/= 8 Days, Menses Variable, Cycle > 4 Weeks Between, No Menses for 6 Months, Heavy Menses, Light Menses, Normal Menses, Spotting Between Cycles, S/P Hysterectomy, Menopausal, Post Menopausal, Premenarche, Abnormal Vaginal Bleeding, Dysmenorrhea, Dyspareunia, Genital Lesions, Genital Pruritis, Pelvic Pain, Prolapse Symptoms, Sexual Dysfunction, Vaginal Discharge, Vaginal Dryness, Vaginal Odor, Vaginal Pruritis, Other - Menstruation Menstruation: absent: As Per HPI, Amenorrhea, Amenorrhea/ Control, Cur rently Menstual, Cycle <21 Days, Cycle >35 Days, Cycle Variable, Menses 1-7 Days, Menses >/= 8 Days, Menses Variable, Cycle > 4 Weeks Between, No Menses for 6 Months, Heavy Menses, Light Menses, Normal Menses, Spotting Between Cycles, S/P Hysterectomy, Menopausal, Post Menopausal, Premenarche, Abnormal Vaginal Bleeding, Dysmenorrhea, Other - Musculoskeletal Musculoskeletal: absent: As Per HPI, Abnormal Gait, Arthralgias, Atrophy, Back Pain, Deformity, Joint Swelling, Limited Range of Motion, Loss of Height, Muscle Cramps, Muscle Weakness, Myalgias, Neck Pain, Numbness, Radiating Pain into Limb, Stiffness, Tingling, Other - Integumentary Integumentary: absent: As Per HPI, Acne, Alopecia, Bleeding Lesions, Change in Hair, Change in Nails, Change in Pigmentation, Changing Lesions, Dry Skin, Erythema, Furuncle, Hirsutism, Lesions, New Lesions, Non-Healing Lesions, Photosensitivity, Pruritus, Rash, Skin Pain, Skin Ulcer, Sores, Striae, Swelling, Unusual Bruising, Wounds, Jaundice, Other - Neurological Neurological: As Per HPI - Psychiatric Psychiatric: As Per HPI - Endocrine Endocrine: absent: As Per HPI, Change in Body Appearance, Change in Libido, Cold Intolorance, Deepening of Voice, Excessive Sweating, Fatigue, Flushing, Heat Intolorance, Increase in Ring/Shoe/Hat Size, Palpitations, Polydipsia, Polyphagia, Polyuria, Other - Hematologic/Lymphatic Hematologic: absent: As Per HPI, Easy Bleeding, Easy Bruising, Lymphadenopathy, Other Past Patient History - Past Medical History & Family History Past Medical History?: Yes - Past Social History Smoking Status: Light Smoker < 10 Cigarettes Daily - CARDIAC Hx Hypercholesterolemia: Yes Hx Hypertension: Yes - PULMONARY Hx Respiratory Disorders: Yes Hx Pneumonia: Yes - NEUROLOGICAL Hx Neurological Disorder: No - HEENT Hx HEENT Problems: No - RENAL Hx Chronic Kidney Disease: No - ENDOCRINE/METABOLIC Hx Endocrine Disorders: Yes Hx Diabetes Mellitus Type 2: Yes Hx Hypothyroidism: Yes - HEMATOLOGICAL/ONCOLOGICAL Hx Blood Disorders: No Hx AIDS: No Hx Human Immunodeficiency Virus (HIV): No - INTEGUMENTARY Hx Dermatological Problems: No - MUSCULOSKELETAL/RHEUMATOLOGICAL Hx Musculoskeletal Disorders: No Hx Falls: Yes - GASTROINTESTINAL Hx Gastritis: Yes - GENITOURINARY/GYNECOLOGICAL Hx Genitourinary Disorders: No - PSYCHIATRIC Hx Psychophysiologic Disorder: Yes Hx Depression: Yes Hx Schizophrenia: Yes Hx Substance Use: No - SURGICAL HISTORY Hx Surgeries: No - ANESTHESIA Hx Anesthesia: No Meds Allergies/Adverse Reactions: Allergies Allergy/AdvReac Type Severity Reaction Status Date / Time No Known Allergies Allergy Verified 08/02/18 21:49 - Medications Medications: Current Medications Acetaminophen (Tylenol 325mg Tab) 650 mg PO Q6 PRN PRN Reason: Fever >100.4 F Albuterol Sulfate (Albuterol 0.083% Inhal Veronica (2.5 Mg/3 Ml) Ud) 2.5 mg INH RQ6 [facility] Last Admin: 08/03/18 08:04 Dose: 2.5 mg Amlodipine Besylate (Norvasc) 10 mg PO DAILY [facility] Last Admin: 08/03/18 10:41 Dose: 10 mg Aspirin (Ecotrin) 325 mg PO DAILY [facility] Last Admin: 08/03/18 10:39 Dose: 325 mg Atorvastatin Calcium (Lipitor) 10 mg PO HS [facility] Carvedilol (Coreg) 25 mg PO BID [facility] Last Admin: 08/03/18 10:39 Dose: 25 mg Dextrose (Dextrose 50% Inj) 0 ml IV STAT PRN; Protocol PRN Reason: Hypoglycemia Protocol Dextrose (Glutose 15) 0 gm PO ONCE PRN; Protocol PRN Reason: Hypoglycemia Protocol Divalproex Sodium (Depakote Er(Once Daily)) 1,250 mg PO HS [facility] Enoxaparin Sodium (Lovenox) 40 mg SC DAILY [facility]; Protocol Last Admin: 08/03/18 10:40 Dose: 40 mg Escitalopram Oxalate (Lexapro) 10 mg PO HS [facility] Fluticasone Propionate (Flonase) 2 spr ANIKA DAILY [facility] Last Admin: 08/03/18 10:40 Dose: 2 spr Glucagon (Glucagen Diagnostic Kit) 0 mg IM STAT PRN; Protocol PRN Reason: Hypoglycemia Protocol Home Med (Acyclovir/Hydrocortisone [Xerese 5%-1% Cream]) 1 appl TOP PRN PRN PRN Reason: Itching / Pruritus Home Med (Clozapine [Fazaclo]) 200 mg PO HS [facility] Home Med (Colesevelam Hcl [Welchol]) 3.75 gm PO PRN PRN PRN Reason: Serum glucose Lactated Ringer's (Lactated Ringer's) 1,000 mls @ 250 mls/hr IV .Q4H [facility] Last Admin: 08/03/18 10:44 Dose: 250 mls/hr Azithromycin 500 mg/ Sodium (Chloride) 250 mls @ 250 mls/hr IVPB DAILY [facility]; Protocol Last Admin: 08/03/18 10:32 Dose: 250 mls/hr Ceftriaxone Sodium 1 gm/ (Sodium Chloride) 100 mls @ 100 mls/hr IVPB DAILY [facility]; Protocol Last Admin: 08/03/18 10:42 Dose: 100 mls/hr Insulin Detemir (Levemir) 15 units SC HS [facility] Insulin Human Lispro (Humalog) 0 units SC ACHS [facility]; Protocol Last Admin: 08/03/18 10:31 Dose: Not Given Levothyroxine Sodium (Synthroid) 50 mcg PO DAILY@0630 [facility] Losartan Potassium (Cozaar) 50 mg PO DAILY [facility] Last Admin: 08/03/18 10:38 Dose: 50 mg Multivitamins/Minerals (Therapeutic-M Tab) 1 tab PO DAILY [facility] Last Admin: 08/03/18 10:38 Dose: 1 tab Pantoprazole Sodium (Protonix Ec Tab) 20 mg PO DAILY [facility] Last Admin: 08/03/18 10:39 Dose: 20 mg Sitagliptin Phosphate (Januvia) 100 mg PO HS [facility] Physical Exam - Constitutional Appears: Toxic, Confused, Chronically Ill - Head Exam Head Exam: ATRAUMATIC, NORMAL INSPECTION, NORMOCEPHALIC - Eye Exam Eye Exam: EOMI, PERRL. absent: Scleral icterus - ENT Exam ENT Exam: Mucous Membranes Dry, Normal External Ear Exam - Neck Exam Neck exam: Negative for: Lymphadenopathy - Respiratory Exam Respiratory Exam: Decreased Breath Sounds, Prolonged Expiratory Phase, Rales, Rhonchi - Cardiovascular Exam Cardiovascular Exam: Tachycardia, +S1, +S2 - GI/Abdominal Exam GI & Abdominal Exam: Diminished Bowel Sounds, Soft. absent: Tenderness - Rectal Exam Rectal Exam: Deferred - Exam Exam: NORMAL INSPECTION - Extremities Exam Extremities exam: Negative for: calf tenderness, pedal edema - Back Exam Back exam: absent: CVA tenderness (L), CVA tenderness (R) - Neurological Exam Neurological exam: Alert, CN II-XII Intact, Oriented x3, Reflexes Normal - Psychiatric Exam Psychiatric exam: Depressed - Skin Skin Exam: Dry Results - Vital Signs Recent Vital Signs: Last Vital Signs Temp 99.7 F H 08/03/18 08:23 Pulse 90 08/03/18 10:41 Resp 18 08/03/18 08:23 BP 162/74 H 08/03/18 10:41 Pulse Ox 97 08/03/18 08:23 - Labs Result Diagrams: 08/03/18 04:25 08/03/18 04:25 Labs: Laboratory Results - last 24 hr 08/02/18 08/02/18 08/02/18 22:20 22:20 22:20 WBC 17.2 H RBC 4.10 Hgb 10.7 L Hct 32.4 L MCV 79.0 L MCH 26.0 L MCHC 32.9 L RDW 15.2 H Plt Count 288 MPV 8.5 Neut % (Auto) 77.8 H Lymph % (Auto) 13.3 L [place] % (Auto) 8.2 Eos % (Auto) 0.2 Baso % (Auto) 0.5 Neut # (Auto) 13.4 H Lymph # (Auto) 2.3 [place] # (Auto) 1.4 H Eos # (Auto) 0.0 Baso # (Auto) 0.1 Neutrophils % (Manual) 58 Band Neutrophils % 19 H* Lymphocytes % (Manual) 18 L Monocytes % (Manual) 4 Eosinophils % (Manual) 1 Toxic Granulation Present Platelet Estimate Normal Hypochromasia (manual) Slight Anisocytosis (manual) Slight Microcytosis (manual) Slight PT 13.0 INR 1.1 APTT 31.5 pO2 VBG pH VBG pCO2 VBG HCO3 VBG Total CO2 VBG O2 Sat (Calc) VBG Base Excess VBG Potassium Glucose Lactate FiO2 Sodium 136 Potassium 4.0 Chloride 100 Carbon Dioxide 22 Anion Gap 18 BUN 14 Creatinine 0.6 L Est GFR ( Amer) > 60 Est GFR (Non-Af Amer) > 60 Random Glucose 177 H Lactic Acid Calcium 9.1 Total Bilirubin 0.3 AST 32 ALT 27 Alkaline Phosphatase 79 Troponin I 0.0170 NT-Pro-B Natriuret Pep 994 H Total Protein 7.1 Albumin 3.7 Globulin 3.5 Albumin/Globulin Ratio 1.1 Triglycerides 294 H Cholesterol 244 H LDL Cholesterol Direct 135 H HDL Cholesterol 41 TSH 3rd Generation Venous Blood Potassium Urine Color Urine Clarity Urine pH Ur Specific [place] Urine Protein Urine Glucose (UA) Urine Ketones Urine Blood Urine Nitrate Urine Bilirubin Urine Urobilinogen Ur Leukocyte Esterase Urine RBC (Auto) Urine Microscopic WBC Ur Squamous Epith Cells Influenza Typ A,B (EIA) Blood Type Antibody Screen BBK History Checked 08/02/18 08/02/18 08/02/18 22:20 22:24 22:58 WBC RBC Hgb Hct MCV MCH MCHC RDW Plt Count MPV Neut % (Auto) Lymph % (Auto) [place] % (Auto) Eos % (Auto) Baso % (Auto) Neut # (Auto) Lymph # (Auto) [place] # (Auto) Eos # (Auto) Baso # (Auto) Neutrophils % (Manual) Band Neutrophils % Lymphocytes % (Manual) Monocytes % (Manual) Eosinophils % (Manual) Toxic Granulation Platelet Estimate Hypochromasia (manual) Anisocytosis (manual) Microcytosis (manual) PT INR APTT pO2 51 VBG pH 7.43 VBG pCO2 40 VBG HCO3 26.2 VBG Total CO2 27.7 VBG O2 Sat (Calc) 87.7 H VBG Base Excess 2.0 VBG Potassium 4.0 Glucose 188 H Lactate 3.2 H FiO2 21.0 Sodium 133.0 Potassium Chloride 99.0 Carbon Dioxide Anion Gap BUN Creatinine Est GFR ( Amer) Est GFR (Non-Af Amer) Random Glucose Lactic Acid Calcium Total Bilirubin AST ALT Alkaline Phosphatase Troponin I NT-Pro-B Natriuret Pep Total Protein Albumin Globulin Albumin/Globulin Ratio Triglycerides Cholesterol LDL Cholesterol Direct HDL Cholesterol TSH 3rd Generation Venous Blood Potassium 4.0 Urine Color Yellow Urine Clarity Slighty-cloudy Urine pH 6.0 Ur Specific [place] 1.017 Urine Protein >=500 Urine Glucose (UA) Neg Urine Ketones Trace Urine Blood Negative Urine Nitrate Negative Urine Bilirubin Negative Urine Urobilinogen 4.0 H Ur Leukocyte Esterase Neg Urine RBC (Auto) 5 H Urine Microscopic WBC 1 Ur Squamous Epith Cells < 1 Influenza Typ A,B (EIA) Blood Type A POSITIVE Antibody Screen Negative BBK History Checked No verified bt 08/02/18 08/03/18 08/03/18 23:20 02:09 04:25 WBC RBC Hgb Hct MCV MCH MCHC RDW Plt Count MPV Neut % (Auto) Lymph % (Auto) [place] % (Auto) Eos % (Auto) Baso % (Auto) Neut # (Auto) Lymph # (Auto) [place] # (Auto) Eos # (Auto) Baso # (Auto) Neutrophils % (Manual) Band Neutrophils % Lymphocytes % (Manual) Monocytes % (Manual) Eosinophils % (Manual) Toxic Granulation Platelet Estimate Hypochromasia (manual) Anisocytosis (manual) Microcytosis (manual) PT INR APTT pO2 51 VBG pH 7.39 VBG pCO2 41 VBG HCO3 24.4 VBG Total CO2 26.1 VBG O2 Sat (Calc) 87.5 H VBG Base Excess -0.2 L VBG Potassium 3.7 Glucose 182 H Lactate 2.8 H FiO2 21.0 Sodium 135.0 Potassium Chloride 103.0 Carbon Dioxide Anion Gap BUN Creatinine Est GFR ( Amer) Est GFR (Non-Af Amer) Random Glucose Lactic Acid Calcium Total Bilirubin AST ALT Alkaline Phosphatase Troponin I NT-Pro-B Natriuret Pep Total Protein Albumin Globulin Albumin/Globulin Ratio Triglycerides Cholesterol LDL Cholesterol Direct HDL Cholesterol TSH 3rd Generation 0.24 L Venous Blood Potassium 3.7 Urine Color Urine Clarity Urine pH Ur Specific [place] Urine Protein Urine Glucose (UA) Urine Ketones Urine Blood Urine Nitrate Urine Bilirubin Urine Urobilinogen Ur Leukocyte Esterase Urine RBC (Auto) Urine Microscopic WBC Ur Squamous Epith Cells Influenza Typ A,B (EIA) Negative for flu a/b Blood Type Antibody Screen BBK History Checked 08/03/18 08/03/18 08/03/18 04:25 04:25 04:25 WBC 13.6 H RBC 3.75 L Hgb 10.0 L Hct 29.7 L MCV 79.3 L MCH 26.8 L MCHC 33.8 RDW 15.3 H Plt Count 279 MPV 8.3 Neut % (Auto) 74.6 Lymph % (Auto) 15.7 L [place] % (Auto) 8.5 Eos % (Auto) 0.5 Baso % (Auto) 0.7 Neut # (Auto) 10.1 H Lymph # (Auto) 2.1 [place] # (Auto) 1.2 H Eos # (Auto) 0.1 Baso # (Auto) 0.1 Neutrophils % (Manual) Band Neutrophils % Lymphocytes % (Manual) Monocytes % (Manual) Eosinophils % (Manual) Toxic Granulation Platelet Estimate Hypochromasia (manual) Anisocytosis (manual) Microcytosis (manual) PT INR APTT pO2 VBG pH VBG pCO2 VBG HCO3 VBG Total CO2 VBG O2 Sat (Calc) VBG Base Excess VBG Potassium Glucose Lactate FiO2 Sodium 141 Potassium 3.6 Chloride 105 Carbon Dioxide 25 Anion Gap 15 BUN 12 Creatinine 0.5 L Est GFR ( Amer) > 60 Est GFR (Non-Af Amer) > 60 Random Glucose 144 H Lactic Acid 1.9 Calcium 8.7 Total Bilirubin AST ALT Alkaline Phosphatase Troponin I NT-Pro-B Natriuret Pep Total Protein Albumin Globulin Albumin/Globulin Ratio Triglycerides Cholesterol LDL Cholesterol Direct HDL Cholesterol TSH 3rd Generation Venous Blood Potassium Urine Color Urine Clarity Urine pH Ur Specific [place] Urine Protein Urine Glucose (UA) Urine Ketones Urine Blood Urine Nitrate Urine Bilirubin Urine Urobilinogen Ur Leukocyte Esterase Urine RBC (Auto) Urine Microscopic WBC Ur Squamous Epith Cells Influenza Typ A,B (EIA) Blood Type Antibody Screen BBK History Checked Assessment & Plan - Assessment and Plan (Free Text) Assessment: Vanco / Zosyn added for possible aspiration pneumonia in a jail setting Cont z max for now pending cultures and serologies
--- NOTE | 2018-08-03 10:57 | CARD ---
APPROVED REPORT Date of service: 08/02/2018 EKG Measurement Heart [id number] <Conclusion> Normal sinus rhythm Nonspecific ST changes, consider inferior ischemia Abnormal ECG
--- NOTE | 2018-08-03 11:31 | CT ---
Date of service: 08/02/2018 PROCEDURE: CT HEAD WITHOUT CONTRAST. HISTORY: code stroke COMPARISON: None available. TECHNIQUE: Axial computed tomography images were obtained through the head/brain without intravenous contrast. Supplemental Coronal and Sagittal projections created and reviewed. Radiation dose: Total exam DLP = 929.48 mGy-cm. This CT exam was performed using one or more of the following dose reduction techniques: Automated exposure control, adjustment of the mA and/or kV according to patient size, and/or use of iterative reconstruction technique. FINDINGS: HEMORRHAGE: No intracranial hemorrhage. BRAIN: No mass effect or edema. Cortical and cerebellar atrophy, periventricular small vessel disease. VENTRICLES: Unremarkable. No hydrocephalus. CALVARIUM: Unremarkable. PARANASAL SINUSES: Chronic ethmoid air cell disease. Trace maxillary sinus disease bilaterally. MASTOID AIR CELLS: Unremarkable as visualized. No inflammatory changes. OTHER FINDINGS: None. IMPRESSION: No acute intracranial abnormalities. No significant findings to account for the clinical presentation. Concordant results (preliminary interpretation) provided by [email or web address]. Procedure Completed: 22:05. Preliminary Report: Dictated and Authenticated: 22:17. Final Interpretation: 11:26. August 03, 2018
[2018-08-03] MEDS: Piperacillin/Tazobact 3.375 GM in Sodium Chloride 0.9% 100 ML IVPB SCH ×2 (12:43→18:04)
[2018-08-03] MEDS ORDERED: Lactated Ringer's 1,000 ML IV SCH (17:59)
[2018-08-03] MEDS: Insulin Detemir 100 Units/ml Inj SC SCH (21:32)
[2018-08-03] MEDS: Divalproex 250 mg ER (ONCE DAILY formulation) PO SCH (21:56)
[2018-08-03] MEDS ORDERED: Patient's Own Med (Linagliptin [Tradjenta] 5 MG) PO SCH (22:00)
[2018-08-03] MEDS ORDERED: CLOZAPINE 200 MG PO SCH (22:00)
[2018-08-04] MEDS ORDERED: Sodium Bicarbonate 7.5% (0.9 MEQ/ML) 50ML INJ IV ONE ×2 (00:24→01:15)
[2018-08-04] MEDS ORDERED: Sodium Chloride 0.9% 1,000 ML IV SCH ×2 (00:30→01:15)
[2018-08-04 00:44] LABS: INR 1.1; PROTHROMBIN TIME 12.2 Seconds (9.8-13.1)
[2018-08-04] MEDS ORDERED: DEXTROSE 5% IV SCH (00:45)
[2018-08-04] MEDS ORDERED: Propofol 10 mg/ml 1,000 MG/100 ML VIAL IV SCH (00:45)
[2018-08-04] MEDS ORDERED: WATER IV SCH (00:45)
[2018-08-04] MEDS ORDERED: SODIUM BICARBONATE IV SCH (00:45)
[2018-08-04] MEDS ORDERED: Chlorhexidine Gluconate 1 APPL/PKT TP ONE (00:50)
[2018-08-04 00:54] LABS: ALBUMIN 3.3 g/dL (3.5-5.0); ALT/SGPT 75 U/L (9-52); AST/SGOT 107 U/L (14-36); BLOOD UREA NITROGEN 10 mg/dl (7-17); CALCIUM 8.5 mg/dL (8.4-10.2); GFR NON-AFRICAN AMERICAN > 60
[2018-08-04] MEDS ORDERED: Albuterol 0.083% Inhal Sol (2.5 mg/3 mL) UD ONE (00:56)
[2018-08-04] MEDS: Albuterol 0.083% Inhal Sol (2.5 mg/3 mL) UD INH SCH ×4 (01:01→19:16)
[2018-08-04] MEDS ORDERED: Propofol 10 mg/ml 1,000 MG/100 ML VIAL ONE (01:01)
[2018-08-04 01:27] LABS: ABG ALLEN TEST YES; ARTERIAL BLOOD GAS HCO3 26.9 mmol/L (21-28); ARTERIAL BLOOD GAS O2 SAT 98.4 % (95-98); ARTERIAL BLOOD GAS PCO2 37 mm/Hg (35-45); ARTERIAL BLOOD GAS PH 7.46 (7.35-7.45); ARTERIAL BLOOD GAS PO2 99 mm/Hg (80-100); ARTERIAL BLOOD GAS TCO2 27.4 mmol/L (22-28)
[2018-08-04] MEDS: Sodium Chloride 0.9% 1,000 ML IV SCH ×2 (01:36→14:15)
[2018-08-04] MEDS: Potassium CL 10 MEQ/50 ML 50 ML IVPB SCH ×4 (01:41→05:20)
--- NOTE | 2018-08-04 02:38 | CP.CCUPN ---
CCU Subjective - Physician Review Events Since Last Encounter (Free Text): DENISE DAVENPORT 08/04/18 02:27 Patient is a 62 y/o female with PMH schizofrenia, HTN, DM sent from [facility] for fall, being treated for sepsis with a elevated lactic level with aggressive iv fluid hydration and iv antibiotics. In ED found to be febrile with elevated WBC count , bandemia,elevated lactic acid Repeat CXR showed:Interval patchy atelectasis or infiltrate right base and left perihilar/medial basilar distributions. Stable prominent cardiac silhouette. PT was called a denise davenport bc nurse at bedside failed to palpate a pulse and found the patient unresponsive. By the time of my arrival approximately 4 minutes later she was getting her 2nd dose of Epinephrine. Pt pulse was palpated with compression, and by the 3rd Epinephrine soon regained her pulse. PT was transferred to ICU. I am unsure if she indeed lost pulse , however her pulses were strong and was hemodynamically stable and has gag reflex, responsive to pain, and reflexes were sluggish. PT ABG initially showed metabolic and respiratory acidosis with a pH of 7.14 and Co2 high. Pt improved by the time she had a repeat ABG and was more responsive. Hemodynamically stable. S: Pt is seen and examined by bedside this AM. Daughter Kym present [phone] Pt states that she has not been feeling well for the past few days and has been coughing since Friday. Pt is lathergic, but awake alert and oriented. Endorsing mild dyspnea and chills. O: VS reviewed, mild elevated bp afebrile GEN: lethargic and shaking HEENT: EOMI C: S1S2 no additional heart sounds L: decrease breath in the lower lobes, mild rhonchi in RLL A: obese, NT, BS+ Neuro: AAO x 3 Ext: NT, no edema CCU Objective - Vital Signs / Intake & Output Vital Signs (Last 4 hours): Vital Signs Temp Pulse Resp BP Pulse Ox 08/04/18 00:16 98.9 F 105 H 18 201/88 H 97 Intake and Output (Last 8hrs): Intake & Output 08/03/18 08/03/18 08/04/18 14:59 22:59 06:59 Intake Total 4100 0 Output Total 1200 Balance 2900 0 Intake: IV 0 Intake, Piggyback 800 Oral 800 TPN/PPN 2500 Output: Urine 1200 Urethral (Ray) 1200 - Physical Exam Physical Exam Limitations: Positive for: Other (unresponsive and intubated) Head: Positive for: Normocephalic Pupils: Positive for: Sluggish Conjunctiva: Positive for: Normal Ears: Positive for: Normal Mouth: Positive for: Moist Mucous Membranes Neck: Positive for: Normal Range of Motion Respiratory/Chest: Positive for: Rhonchi Abdomen: Positive for: Distention Upper Extremity: Positive for: Normal Inspection, Cyanosis, Edema Neurological: Positive for: Other (unable to obtain due to intubated state) Skin: Positive for: Warm, Dry, Rashes - Medications Active Medications: Active Medications Generic Name Dose Route Start Last Admin Trade Name Freq PRN Reason Stop Dose Admin Acetaminophen 650 mg 08/03/18 03:33 08/03/18 12:37 Tylenol 325mg Tab PO 650 mg Q6 PRN Administration Fever >100.4 F Albuterol Sulfate 2.5 mg 08/03/18 02:00 08/04/18 01:01 Albuterol 0.083% Inhal Veronica (2.5 Mg/3 Ml) Ud INH 2.5 mg RQ6 LESLIE Administration Amlodipine Besylate 10 mg 08/03/18 09:00 08/03/18 10:41 Norvasc PO 10 mg DAILY LESLIE Administration Aspirin 325 mg 08/03/18 09:00 08/03/18 10:39 Ecotrin PO 325 mg DAILY LESLIE Administration Atorvastatin Calcium 10 mg 08/03/18 22:00 08/03/18 21:31 Lipitor PO 10 mg HS LESLIE Administration Carvedilol 25 mg 08/03/18 09:00 08/03/18 18:08 Coreg PO 25 mg BID LESLIE Administration Dextrose 0 ml 08/03/18 03:35 Dextrose 50% Inj IV STAT PRN Hypoglycemia Protocol Protocol Dextrose 0 gm 08/03/18 03:35 Glutose 15 PO ONCE PRN Hypoglycemia Protocol Protocol Divalproex Sodium 1,250 mg 08/03/18 22:00 08/03/18 21:56 Depakote Er(Once Daily) PO 1,250 mg HS LESLIE Administration Enoxaparin Sodium 40 mg 08/03/18 09:00 08/03/18 10:40 Lovenox SC 40 mg DAILY LESLIE Administration Protocol Escitalopram Oxalate 10 mg 08/03/18 22:00 08/03/18 21:31 Lexapro PO 10 mg HS LESLIE Administration Fluticasone Propionate 2 spr 08/03/18 09:00 08/03/18 10:40 Flonase ANIKA 2 spr DAILY LESLIE Administration Glucagon 0 mg 08/03/18 03:35 Glucagen Diagnostic Kit IM STAT PRN Hypoglycemia Protocol Protocol Home Med 1 appl 08/03/18 01:25 Acyclovir/Hydrocortisone [Xerese 5%-1% Cream] TOP PRN PRN Itching / Pruritus Home Med 200 mg 08/03/18 22:00 Clozapine [Fazaclo] PO HS LESLIE Home Med 3.75 gm 08/03/18 01:25 Colesevelam Hcl [Welchol] PO PRN PRN Serum glucose Azithromycin 500 mg/ Sodium 250 mls @ 250 mls/hr 08/03/18 09:00 08/03/18 10:32 Chloride IVPB 250 mls/hr DAILY LESLIE Administration Protocol Vancomycin HCl 1 gm/ Sodium 250 mls @ 250 mls/hr 08/03/18 11:00 08/03/18 21:59 Chloride IVPB 250 mls/hr Q12H LESLIE Administration Protocol Piperacillin Sod/Tazobactam 100 mls @ 100 mls/hr 08/03/18 11:00 08/03/18 18:04 Sod 3.375 gm/ Sodium Chloride IVPB 100 mls/hr Q8 LESLIE Administration Protocol Propofol 1,000 mg in 100 mls @ 2.558 mls/hr 08/04/18 00:45 08/04/18 01:54 Diprivan IV 08/05/18 00:35 0 mcg/kg/min .Q24H LESLIE 0 mls/hr Titration Protocol 5 MCG/KG/MIN Potassium Chloride 50 mls @ 50 mls/hr 08/04/18 02:00 08/04/18 01:41 Potassium Cl 10meq/50ml Sterile Water IVPB 08/04/18 05:59 50 mls/hr Q1 LESLIE Administration Sodium Chloride 1,000 mls @ 100 mls/hr 08/04/18 01:31 08/04/18 01:36 Sodium Chloride 0.9% IV 08/05/18 01:15 100 mls/hr .Q10H LESLIE Administration Ibuprofen 600 mg 08/03/18 13:30 Motrin Tab PO Q6 PRN Fever >100.4 F Insulin Detemir 15 units 08/03/18 22:00 08/03/18 21:32 Levemir SC 15 u HS LESLIE Administration Insulin Human Lispro 0 units 08/03/18 07:30 08/03/18 21:36 Humalog SC Not Given ACHS [facility] Protocol Levothyroxine Sodium 50 mcg 08/04/18 06:30 Synthroid PO DAILY@0630 LESLIE Losartan Potassium 50 mg 08/03/18 09:00 08/03/18 10:38 Cozaar PO 50 mg DAILY LESLIE Administration Multivitamins/Minerals 1 tab 08/03/18 09:00 08/03/18 10:38 Therapeutic-M Tab PO 1 tab DAILY LESLIE Administration Pantoprazole Sodium 20 mg 08/03/18 09:00 08/03/18 10:39 Protonix Ec Tab PO 20 mg DAILY LESLIE Administration Sitagliptin Phosphate 100 mg 08/03/18 22:00 Januvia PO HS [facility] - Patient Studies Lab Studies: Microbiology Studies 08/02/18 22:05 Blood Culture - Preliminary Blood-Venous NO GROWTH AFTER 24 HOURS 08/02/18 22:10 Blood Culture - Preliminary Blood-Venous NO GROWTH AFTER 24 HOURS Lab Studies 08/04/18 08/04/18 08/04/18 Range/Units 01:20 00:30 00:30 WBC (4.8-10.8) K/uL RBC (3.80-5.20) Mil/uL Hgb (12.0-16.0) g/dL Hct (34.0-47.0) % MCV (81.0-99.0) fl MCH (27.0-31.0) pg MCHC (33.0-37.0) g/dL RDW (11.5-14.5) % Plt Count (130-400) K/uL MPV (7.2-11.7) fl Neut % (Auto) (50.0-75.0) % Lymph % (Auto) (20.0-40.0) % Borden % (Auto) (0.0-10.0) % Eos % (Auto) (0.0-4.0) % Baso % (Auto) (0.0-2.0) % Neut # (Auto) (1.8-7.0) K/uL Lymph # (Auto) (1.0-4.3) K/uL Borden # (Auto) (0.0-0.8) K/uL Eos # (Auto) (0.0-0.7) K/uL Baso # (Auto) (0.0-0.2) K/uL PT 12.2 (9.8-13.1) Seconds INR 1.1 pCO2 37 (35-45) mm/Hg pO2 99 (80-100) mm/Hg HCO3 26.9 (21-28) mmol/L ABG pH 7.46 H (7.35-7.45) ABG Total CO2 27.4 (22-28) mmol/L ABG O2 Saturation 98.4 H (95-98) % ABG Base Excess 2.5 (-2.0-3.0) mmol/L Bridger Test Yes ABG Potassium 3.3 L (3.6-5.2) mmol/L A-a O2 Difference 568.0 mm/Hg Glucose 294 H (65-105) mg/dL Lactate 1.4 (0.7-2.1) mmol/L Vent Mode A/c Mechanical Rate 18 FiO2 100.0 % Tidal Volume 450 PEEP 5 Sodium 135.0 135 (132-148) mmol/l Potassium 3.9 (3.6-5.0) MMOL/L Chloride 103.0 100 (98-107) mmol/L Carbon Dioxide 22 (22-30) mmol/L Anion Gap 17 (10-20) BUN 10 (7-17) mg/dl Creatinine 0.6 L (0.7-1.2) mg/dl Est GFR ( Amer) > 60 Est GFR (Non-Af Amer) > 60 POC Glucose (mg/dL) (65-110) mg/dL Random Glucose 277 H (65-105) mg/dL Hemoglobin A1c (4.2-6.5) % Lactic Acid (0.7-2.1) MMOL/L Calcium 8.5 (8.4-10.2) mg/dL Phosphorus 4.6 H (2.5-4.5) mg/dl Magnesium 1.9 (1.6-2.3) MG/DL Total Bilirubin 0.3 (0.2-1.3) mg/dl AST 107 H D (14-36) U/L ALT 75 H D (9-52) U/L Alkaline Phosphatase 104 (38-126) U/L Troponin I < 0.0120 (0.00-0.120) ng/mL Total Protein 6.6 (6.3-8.2) G/DL Albumin 3.3 L (3.5-5.0) g/dL Globulin 3.4 (2.2-3.9) gm/dL Albumin/Globulin Ratio 1.0 (1.0-2.1) Procalcitonin (0.19-0.49) NG/ML TSH 3rd Generation (0.46-4.68) mIU/ML Arterial Blood Potassium 3.3 L (3.6-5.2) mmol/L 08/03/18 08/03/18 08/03/18 Range/Units 15:56 12:24 05:21 WBC (4.8-10.8) K/uL RBC (3.80-5.20) Mil/uL Hgb (12.0-16.0) g/dL Hct (34.0-47.0) % MCV (81.0-99.0) fl MCH (27.0-31.0) pg MCHC (33.0-37.0) g/dL RDW (11.5-14.5) % Plt Count (130-400) K/uL MPV (7.2-11.7) fl Neut % (Auto) (50.0-75.0) % Lymph % (Auto) (20.0-40.0) % Borden % (Auto) (0.0-10.0) % Eos % (Auto) (0.0-4.0) % Baso % (Auto) (0.0-2.0) % Neut # (Auto) (1.8-7.0) K/uL Lymph # (Auto) (1.0-4.3) K/uL Borden # (Auto) (0.0-0.8) K/uL Eos # (Auto) (0.0-0.7) K/uL Baso # (Auto) (0.0-0.2) K/uL PT (9.8-13.1) Seconds INR pCO2 (35-45) mm/Hg pO2 (80-100) mm/Hg HCO3 (21-28) mmol/L ABG pH (7.35-7.45) ABG Total CO2 (22-28) mmol/L ABG O2 Saturation (95-98) % ABG Base Excess (-2.0-3.0) mmol/L Bridger Test ABG Potassium (3.6-5.2) mmol/L A-a O2 Difference mm/Hg Glucose (65-105) mg/dL Lactate (0.7-2.1) mmol/L Vent Mode Mechanical Rate FiO2 % Tidal Volume PEEP Sodium (132-148) mmol/l Potassium (3.6-5.0) MMOL/L Chloride (98-107) mmol/L Carbon Dioxide (22-30) mmol/L Anion Gap (10-20) BUN (7-17) mg/dl Creatinine (0.7-1.2) mg/dl Est GFR ( Amer) Est GFR (Non-Af Amer) POC Glucose (mg/dL) 158 H 235 H 129 H (65-110) mg/dL Random Glucose (65-105) mg/dL Hemoglobin A1c (4.2-6.5) % Lactic Acid (0.7-2.1) MMOL/L Calcium (8.4-10.2) mg/dL Phosphorus (2.5-4.5) mg/dl Magnesium (1.6-2.3) MG/DL Total Bilirubin (0.2-1.3) mg/dl AST (14-36) U/L ALT (9-52) U/L Alkaline Phosphatase (38-126) U/L Troponin I (0.00-0.120) ng/mL Total Protein (6.3-8.2) G/DL Albumin (3.5-5.0) g/dL Globulin (2.2-3.9) gm/dL Albumin/Globulin Ratio (1.0-2.1) Procalcitonin (0.19-0.49) NG/ML TSH 3rd Generation (0.46-4.68) mIU/ML Arterial Blood Potassium (3.6-5.2) mmol/L 08/03/18 08/03/18 08/03/18 Range/Units 04:25 04:25 04:25 WBC 13.6 H (4.8-10.8) K/uL RBC 3.75 L (3.80-5.20) Mil/uL Hgb 10.0 L (12.0-16.0) g/dL Hct 29.7 L (34.0-47.0) % MCV 79.3 L (81.0-99.0) fl MCH 26.8 L (27.0-31.0) pg MCHC 33.8 (33.0-37.0) g/dL RDW 15.3 H (11.5-14.5) % Plt Count 279 (130-400) K/uL MPV 8.3 (7.2-11.7) fl Neut % (Auto) 74.6 (50.0-75.0) % Lymph % (Auto) 15.7 L (20.0-40.0) % Borden % (Auto) 8.5 (0.0-10.0) % Eos % (Auto) 0.5 (0.0-4.0) % Baso % (Auto) 0.7 (0.0-2.0) % Neut # (Auto) 10.1 H (1.8-7.0) K/uL Lymph # (Auto) 2.1 (1.0-4.3) K/uL Borden # (Auto) 1.2 H (0.0-0.8) K/uL Eos # (Auto) 0.1 (0.0-0.7) K/uL Baso # (Auto) 0.1 (0.0-0.2) K/uL PT (9.8-13.1) Seconds INR pCO2 (35-45) mm/Hg pO2 (80-100) mm/Hg HCO3 (21-28) mmol/L ABG pH (7.35-7.45) ABG Total CO2 (22-28) mmol/L ABG O2 Saturation (95-98) % ABG Base Excess (-2.0-3.0) mmol/L Bridger Test ABG Potassium (3.6-5.2) mmol/L A-a O2 Difference mm/Hg Glucose (65-105) mg/dL Lactate (0.7-2.1) mmol/L Vent Mode Mechanical Rate FiO2 % Tidal Volume PEEP Sodium 141 (132-148) mmol/l Potassium 3.6 (3.6-5.0) MMOL/L Chloride 105 (98-107) mmol/L Carbon Dioxide 25 (22-30) mmol/L Anion Gap 15 (10-20) BUN 12 (7-17) mg/dl Creatinine 0.5 L (0.7-1.2) mg/dl Est GFR ( Amer) > 60 Est GFR (Non-Af Amer) > 60 POC Glucose (mg/dL) (65-110) mg/dL Random Glucose 144 H (65-105) mg/dL Hemoglobin A1c (4.2-6.5) % Lactic Acid 1.9 (0.7-2.1) MMOL/L Calcium 8.7 (8.4-10.2) mg/dL Phosphorus (2.5-4.5) mg/dl Magnesium (1.6-2.3) MG/DL Total Bilirubin (0.2-1.3) mg/dl AST (14-36) U/L ALT (9-52) U/L Alkaline Phosphatase (38-126) U/L Troponin I (0.00-0.120) ng/mL Total Protein (6.3-8.2) G/DL Albumin (3.5-5.0) g/dL Globulin (2.2-3.9) gm/dL Albumin/Globulin Ratio (1.0-2.1) Procalcitonin (0.19-0.49) NG/ML TSH 3rd Generation (0.46-4.68) mIU/ML Arterial Blood Potassium (3.6-5.2) mmol/L 08/03/18 08/03/18 08/03/18 Range/Units 04:25 04:25 03:39 WBC (4.8-10.8) K/uL RBC (3.80-5.20) Mil/uL Hgb (12.0-16.0) g/dL Hct (34.0-47.0) % MCV (81.0-99.0) fl MCH (27.0-31.0) pg MCHC (33.0-37.0) g/dL RDW (11.5-14.5) % Plt Count (130-400) K/uL MPV (7.2-11.7) fl Neut % (Auto) (50.0-75.0) % Lymph % (Auto) (20.0-40.0) % Borden % (Auto) (0.0-10.0) % Eos % (Auto) (0.0-4.0) % Baso % (Auto) (0.0-2.0) % Neut # (Auto) (1.8-7.0) K/uL Lymph # (Auto) (1.0-4.3) K/uL Borden # (Auto) (0.0-0.8) K/uL Eos # (Auto) (0.0-0.7) K/uL Baso # (Auto) (0.0-0.2) K/uL PT (9.8-13.1) Seconds INR pCO2 (35-45) mm/Hg pO2 (80-100) mm/Hg HCO3 (21-28) mmol/L ABG pH (7.35-7.45) ABG Total CO2 (22-28) mmol/L ABG O2 Saturation (95-98) % ABG Base Excess (-2.0-3.0) mmol/L Bridger Test ABG Potassium (3.6-5.2) mmol/L A-a O2 Difference mm/Hg Glucose (65-105) mg/dL Lactate (0.7-2.1) mmol/L Vent Mode Mechanical Rate FiO2 % Tidal Volume PEEP Sodium (132-148) mmol/l Potassium (3.6-5.0) MMOL/L Chloride (98-107) mmol/L Carbon Dioxide (22-30) mmol/L Anion Gap (10-20) BUN (7-17) mg/dl Creatinine (0.7-1.2) mg/dl Est GFR ( Amer) Est GFR (Non-Af Amer) POC Glucose (mg/dL) 158 H (65-110) mg/dL Random Glucose (65-105) mg/dL Hemoglobin A1c (4.2-6.5) % Lactic Acid (0.7-2.1) MMOL/L Calcium (8.4-10.2) mg/dL Phosphorus (2.5-4.5) mg/dl Magnesium (1.6-2.3) MG/DL Total Bilirubin (0.2-1.3) mg/dl AST (14-36) U/L ALT (9-52) U/L Alkaline Phosphatase (38-126) U/L Troponin I (0.00-0.120) ng/mL Total Protein (6.3-8.2) G/DL Albumin (3.5-5.0) g/dL Globulin (2.2-3.9) gm/dL Albumin/Globulin Ratio (1.0-2.1) Procalcitonin 0.43 (0.19-0.49) NG/ML TSH 3rd Generation 0.24 L (0.46-4.68) mIU/ML Arterial Blood Potassium (3.6-5.2) mmol/L 08/02/18 Range/Units 23:48 WBC (4.8-10.8) K/uL RBC (3.80-5.20) Mil/uL Hgb (12.0-16.0) g/dL Hct (34.0-47.0) % MCV (81.0-99.0) fl MCH (27.0-31.0) pg MCHC (33.0-37.0) g/dL RDW (11.5-14.5) % Plt Count (130-400) K/uL MPV (7.2-11.7) fl Neut % (Auto) (50.0-75.0) % Lymph % (Auto) (20.0-40.0) % Borden % (Auto) (0.0-10.0) % Eos % (Auto) (0.0-4.0) % Baso % (Auto) (0.0-2.0) % Neut # (Auto) (1.8-7.0) K/uL Lymph # (Auto) (1.0-4.3) K/uL Borden # (Auto) (0.0-0.8) K/uL Eos # (Auto) (0.0-0.7) K/uL Baso # (Auto) (0.0-0.2) K/uL PT (9.8-13.1) Seconds INR pCO2 (35-45) mm/Hg pO2 (80-100) mm/Hg HCO3 (21-28) mmol/L ABG pH (7.35-7.45) ABG Total CO2 (22-28) mmol/L ABG O2 Saturation (95-98) % ABG Base Excess (-2.0-3.0) mmol/L Bridger Test ABG Potassium (3.6-5.2) mmol/L A-a O2 Difference mm/Hg Glucose (65-105) mg/dL Lactate (0.7-2.1) mmol/L Vent Mode Mechanical Rate FiO2 % Tidal Volume PEEP Sodium (132-148) mmol/l Potassium (3.6-5.0) MMOL/L Chloride (98-107) mmol/L Carbon Dioxide (22-30) mmol/L Anion Gap (10-20) BUN (7-17) mg/dl Creatinine (0.7-1.2) mg/dl Est GFR ( Amer) Est GFR (Non-Af Amer) POC Glucose (mg/dL) (65-110) mg/dL Random Glucose (65-105) mg/dL Hemoglobin A1c 9.5 H (4.2-6.5) % Lactic Acid (0.7-2.1) MMOL/L Calcium (8.4-10.2) mg/dL Phosphorus (2.5-4.5) mg/dl Magnesium (1.6-2.3) MG/DL Total Bilirubin (0.2-1.3) mg/dl AST (14-36) U/L ALT (9-52) U/L Alkaline Phosphatase (38-126) U/L Troponin I (0.00-0.120) ng/mL Total Protein (6.3-8.2) G/DL Albumin (3.5-5.0) g/dL Globulin (2.2-3.9) gm/dL Albumin/Globulin Ratio (1.0-2.1) Procalcitonin (0.19-0.49) NG/ML TSH 3rd Generation (0.46-4.68) mIU/ML Arterial Blood Potassium (3.6-5.2) mmol/L Laboratory Results - last 24 hr 08/02/18 08/03/18 08/03/18 23:48 03:39 04:25 WBC RBC Hgb Hct MCV MCH MCHC RDW Plt Count MPV Neut % (Auto) Lymph % (Auto) Borden % (Auto) Eos % (Auto) Baso % (Auto) Neut # (Auto) Lymph # (Auto) Borden # (Auto) Eos # (Auto) Baso # (Auto) PT INR pCO2 pO2 HCO3 ABG pH ABG Total CO2 ABG O2 Saturation ABG Base Excess Bridger Test ABG Potassium A-a O2 Difference Glucose Lactate Vent Mode Mechanical Rate FiO2 Tidal Volume PEEP Sodium Potassium Chloride Carbon Dioxide Anion Gap BUN Creatinine Est GFR ( Amer) Est GFR (Non-Af Amer) POC Glucose (mg/dL) 158 H Random Glucose Hemoglobin A1c 9.5 H Lactic Acid Calcium Phosphorus Magnesium Total Bilirubin AST ALT Alkaline Phosphatase Troponin I Total Protein Albumin Globulin Albumin/Globulin Ratio Procalcitonin 0.43 TSH 3rd Generation Arterial Blood Potassium 08/03/18 08/03/18 08/03/18 04:25 04:25 04:25 WBC 13.6 H RBC 3.75 L Hgb 10.0 L Hct 29.7 L MCV 79.3 L MCH 26.8 L MCHC 33.8 RDW 15.3 H Plt Count 279 MPV 8.3 Neut % (Auto) 74.6 Lymph % (Auto) 15.7 L Borden % (Auto) 8.5 Eos % (Auto) 0.5 Baso % (Auto) 0.7 Neut # (Auto) 10.1 H Lymph # (Auto) 2.1 Borden # (Auto) 1.2 H Eos # (Auto) 0.1 Baso # (Auto) 0.1 PT INR pCO2 pO2 HCO3 ABG pH ABG Total CO2 ABG O2 Saturation ABG Base Excess Bridger Test ABG Potassium A-a O2 Difference Glucose Lactate Vent Mode Mechanical Rate FiO2 Tidal Volume PEEP Sodium 141 Potassium 3.6 Chloride 105 Carbon Dioxide 25 Anion Gap 15 BUN 12 Creatinine 0.5 L Est GFR ( Amer) > 60 Est GFR (Non-Af Amer) > 60 POC Glucose (mg/dL) Random Glucose 144 H Hemoglobin A1c Lactic Acid Calcium 8.7 Phosphorus Magnesium Total Bilirubin AST ALT Alkaline Phosphatase Troponin I Total Protein Albumin Globulin Albumin/Globulin Ratio Procalcitonin TSH 3rd Generation 0.24 L Arterial Blood Potassium 08/03/18 08/03/18 08/03/18 04:25 05:21 12:24 WBC RBC Hgb Hct MCV MCH MCHC RDW Plt Count MPV Neut % (Auto) Lymph % (Auto) Borden % (Auto) Eos % (Auto) Baso % (Auto) Neut # (Auto) Lymph # (Auto) Borden # (Auto) Eos # (Auto) Baso # (Auto) PT INR pCO2 pO2 HCO3 ABG pH ABG Total CO2 ABG O2 Saturation ABG Base Excess Bridger Test ABG Potassium A-a O2 Difference Glucose Lactate Vent Mode Mechanical Rate FiO2 Tidal Volume PEEP Sodium Potassium Chloride Carbon Dioxide Anion Gap BUN Creatinine Est GFR ( Amer) Est GFR (Non-Af Amer) POC Glucose (mg/dL) 129 H 235 H Random Glucose Hemoglobin A1c Lactic Acid 1.9 Calcium Phosphorus Magnesium Total Bilirubin AST ALT Alkaline Phosphatase Troponin I Total Protein Albumin Globulin Albumin/Globulin Ratio Procalcitonin TSH 3rd Generation Arterial Blood Potassium 08/03/18 08/04/18 08/04/18 15:56 00:30 00:30 WBC RBC Hgb Hct MCV MCH MCHC RDW Plt Count MPV Neut % (Auto) Lymph % (Auto) Borden % (Auto) Eos % (Auto) Baso % (Auto) Neut # (Auto) Lymph # (Auto) Borden # (Auto) Eos # (Auto) Baso # (Auto) PT 12.2 INR 1.1 pCO2 pO2 HCO3 ABG pH ABG Total CO2 ABG O2 Saturation ABG Base Excess Bridger Test ABG Potassium A-a O2 Difference Glucose Lactate Vent Mode Mechanical Rate FiO2 Tidal Volume PEEP Sodium 135 Potassium 3.9 Chloride 100 Carbon Dioxide 22 Anion Gap 17 BUN 10 Creatinine 0.6 L Est GFR ( Amer) > 60 Est GFR (Non-Af Amer) > 60 POC Glucose (mg/dL) 158 H Random Glucose 277 H Hemoglobin A1c Lactic Acid Calcium 8.5 Phosphorus 4.6 H Magnesium 1.9 Total Bilirubin 0.3 AST 107 H D ALT 75 H D Alkaline Phosphatase 104 Troponin I < 0.0120 Total Protein 6.6 Albumin 3.3 L Globulin 3.4 Albumin/Globulin Ratio 1.0 Procalcitonin TSH 3rd Generation Arterial Blood Potassium 08/04/18 01:20 WBC RBC Hgb Hct MCV MCH MCHC RDW Plt Count MPV Neut % (Auto) Lymph % (Auto) Borden % (Auto) Eos % (Auto) Baso % (Auto) Neut # (Auto) Lymph # (Auto) Borden # (Auto) Eos # (Auto) Baso # (Auto) PT INR pCO2 37 pO2 99 HCO3 26.9 ABG pH 7.46 H ABG Total CO2 27.4 ABG O2 Saturation 98.4 H ABG Base Excess 2.5 Bridger Test Yes ABG Potassium 3.3 L A-a O2 Difference 568.0 Glucose 294 H Lactate 1.4 Vent Mode A/c Mechanical Rate 18 FiO2 100.0 Tidal Volume 450 PEEP 5 Sodium 135.0 Potassium Chloride 103.0 Carbon Dioxide Anion Gap BUN Creatinine Est GFR ( Amer) Est GFR (Non-Af Amer) POC Glucose (mg/dL) Random Glucose Hemoglobin A1c Lactic Acid Calcium Phosphorus Magnesium Total Bilirubin AST ALT Alkaline Phosphatase Troponin I Total Protein Albumin Globulin Albumin/Globulin Ratio Procalcitonin TSH 3rd Generation Arterial Blood Potassium 3.3 L EKG/Cardiology Studies: Cardiology / EKG Studies 08/04/18 EKG [ELECTROCARDIOGRAM] Stat Comment: Mode Of Transportation: Reason For Exam: code blue Fingerstick Blood Sugar Results: 194 Review of Systems - Review of Systems Systems not reviewed;Unavailable: Unstable Vital Signs (unable to obtain due to current intubated state) - Constitutional Constitutional: UN - EENT Eyes: UNREMARKABLE Ears: UNREMARKABLE - Breasts Breasts: UNREMARKABLE - Cardiovascular Cardiovascular: UNREMARKABLE - Respiratory Respiratory: UNREMARKABLE - Gastrointestinal Gastrointestinal: UNREMARKABLE - Genitourinary Genitourinary: UNREMARKABLE - Reproductive: Female Reproductive:Female: UNREMARKABLE - Menstruation Menstruation: UNREMARKABLE - Musculoskeletal Musculoskeletal: UNREMARKABLE - Integumentary Integumentary: UNREMARKABLE - Neurological Neurological: UNREMARKABLE - Psychiatric Psychiatric: UNREMARKABLE - Endocrine Endocrine: UNREMARKABLE - Hematologic/Lymphatic Hematologic: UNREMARKABLE Critical Care Progress Note - Extremities/Vascular Does the Patient have a Central Venous Catheter?: No Does the Patient need a Central Venous Catheter?: No - Nutrition Nutrition: Nutrition Category Date Time Status Consistent Carbohydrate [DIET] Diets 08/03/18 Breakfast Active Assessment/Plan - Assessment and Plan (Free Text) Assessment: PT s/p questionable denise davenport who immediately responded to Epinephrine and intubated with a normalization of ABG. Pt responded to fluids and medications. appears to have developed pulmonary edema on chest xray. Plan: 1) Cardiac arrest- responded to Epinephrine, intubation and fluid support. She improved her blood gas and was gagging and neurologically seemed to improve, critical but stable. - Repeat ABG at 5 am - iv deprivan for sedation -icu for vent management - serial trops x 3 - EKG normal post code blue - continue iv antibiotics - will insert central line if need pressor support however currently she is stable, responsive and reflexes intact. Map greater than 80 - will continue present management - Date & Time Date: 08/04/18 Time: 02:53
[2018-08-04] MEDS: Piperacillin/Tazobact 3.375 GM in Sodium Chloride 0.9% 100 ML IVPB SCH ×3 (02:39→17:13)
[2018-08-04 05:39] LABS: HEMOGLOBIN 9.6 g/dL (12.0-16.0); MEAN CORPUSCULAR HEMOGLOBIN 25.9 pg (27.0-31.0); MEAN CORPUSCULAR HGB CONC 32.8 g/dL (33.0-37.0); RBC 3.7 Mil/uL (3.80-5.20); RED CELL DISTRIBUTION WIDTH 15.3 % (11.5-14.5); WHITE BLOOD COUNT 13.2 K/uL (4.8-10.8)
[2018-08-04 05:42] LABS: BLOOD UREA NITROGEN 10 mg/dl (7-17); CALCIUM 8.2 mg/dL (8.4-10.2); GFR NON-AFRICAN AMERICAN > 60
[2018-08-04] MEDS: Levothyroxine 50 MCG TAB PO SCH (05:50)
[2018-08-04] MEDS: Insulin Lispro (humaLOG) 100 Units/ml Inj SC SCH ×4 (06:29→21:46)
[2018-08-04 08:28] LABS: ABG ALLEN TEST YES; ARTERIAL BLOOD GAS HCO3 27.6 mmol/L (21-28); ARTERIAL BLOOD GAS O2 SAT 98.7 % (95-98); ARTERIAL BLOOD GAS PCO2 41 mm/Hg (35-45); ARTERIAL BLOOD GAS PH 7.44 (7.35-7.45); ARTERIAL BLOOD GAS PO2 200 mm/Hg (80-100); ARTERIAL BLOOD GAS TCO2 29.1 mmol/L (22-28)
--- NOTE | 2018-08-04 08:46 | RAD ---
Date of service: 08/04/2018 HISTORY: vented COMPARISON: 08/04/2018 at 00:24 a.m. FINDINGS: There is stable position of the endotracheal tube terminating in the mid trachea. The nasogastric tube terminates in the stomach. LUNGS: The lungs are well inflated. No interval change in layering moderate right pleural effusion. No large left pleural effusion. PLEURA: No pleural effusions or pneumothorax. CARDIOVASCULAR: The heart is normal in size. No aortic atherosclerotic calcification present. OSSEOUS STRUCTURES: Within normal limits for the patient's age. VISUALIZED UPPER ABDOMEN: Normal. OTHER FINDINGS: None. IMPRESSION: No change in layering moderate right pleural effusion. Stable position of support tubes.
--- NOTE | 2018-08-04 08:47 | RAD ---
Date of service: 08/04/2018 PROCEDURE: CHEST RADIOGRAPH, 1 VIEW HISTORY: code issac COMPARISON: 08/03/2018. FINDINGS: Endotracheal tube terminates in the mid trachea. LUNGS: The lungs are well inflated. There is airspace disease in the right lower lobe. The left lung is clear. There is mild pulmonary venous congestion. PLEURA: No pneumothorax. Suspect layering right pleural effusion. CARDIOVASCULAR: The heart is normal in size. No aortic atherosclerotic calcifications present. OSSEOUS STRUCTURES: Within normal limits for the patient's age. VISUALIZED UPPER ABDOMEN: Normal. OTHER FINDINGS: None. IMPRESSION: Suspect layering right pleural effusion. Right lower lobe airspace disease may represent atelectasis or pneumonia. Endotracheal tube terminates in the mid trachea.
[2018-08-04 09:11] LABS: ABG ALLEN TEST YES; ARTERIAL BLOOD GAS HCO3 27.2 mmol/L (21-28); ARTERIAL BLOOD GAS O2 CAPACITY 12.6 mL/dL (16-24); ARTERIAL BLOOD GAS O2 CONTENT 12.5 ML/dL (15-23); ARTERIAL BLOOD GAS O2 SAT 98.9 % (95-98); ARTERIAL BLOOD GAS PCO2 39 mm/Hg (35-45); ARTERIAL BLOOD GAS PH 7.45 (7.35-7.45); ARTERIAL BLOOD GAS PO2 104 mm/Hg (80-100); ARTERIAL BLOOD GAS TCO2 28.3 mmol/L (22-28)
[2018-08-04] MEDS: Enoxaparin 40 mg Syringe SC SCH (09:57)
[2018-08-04] MEDS: Aspirin 325 mg EC Tablets PO SCH (09:59)
[2018-08-04] MEDS: Pantoprazole 20 mg EC Tab PO SCH (09:59)
[2018-08-04] MEDS: Azithromycin 500 MG in Sodium Chloride 0.9% 250 ML IVPB SCH (10:00)
[2018-08-04] MEDS: Multivitamin With Minerals Tab PO SCH (10:29)
--- NOTE | 2018-08-04 10:32 | CP.PCM.PN ---
Subjective - Date & Time of Evaluation Date of Evaluation: 08/04/18 Time of Evaluation: 08:00 - Subjective Subjective: events noted s/p cardiac arrest cultures so far negative intubated Objective - Vital Signs/Intake and Output Vital Signs (last 24 hours): Temp Pulse Resp BP Pulse Ox 98.7 F 78 14 148/67 98 08/04/18 08:00 08/04/18 09:59 08/04/18 08:00 08/04/18 09:59 08/04/18 08:00 Intake and Output: 08/04/18 08/04/18 06:59 18:59 Intake Total 5500 Output Total 1700 Balance 3800 - Medications Medications: Current Medications Acetaminophen (Tylenol 325mg Tab) 650 mg PO Q6 PRN PRN Reason: Fever >100.4 F Last Admin: 08/03/18 12:37 Dose: 650 mg Albuterol Sulfate (Albuterol 0.083% Inhal Veronica (2.5 Mg/3 Ml) Ud) 2.5 mg INH RQ6 [facility] Last Admin: 08/04/18 07:32 Dose: 2.5 mg Amlodipine Besylate (Norvasc) 10 mg PO DAILY [facility] Last Admin: 08/04/18 09:59 Dose: 10 mg Aspirin (Ecotrin) 325 mg PO DAILY [facility] Last Admin: 08/04/18 09:59 Dose: 325 mg Atorvastatin Calcium (Lipitor) 10 mg PO HS [facility] Last Admin: 08/03/18 21:31 Dose: 10 mg Carvedilol (Coreg) 25 mg PO BID [facility] Last Admin: 08/04/18 09:30 Dose: 25 mg Dextrose (Dextrose 50% Inj) 0 ml IV STAT PRN; Protocol PRN Reason: Hypoglycemia Protocol Dextrose (Glutose 15) 0 gm PO ONCE PRN; Protocol PRN Reason: Hypoglycemia Protocol Divalproex Sodium (Depakote Er(Once Daily)) 1,250 mg PO HS [facility] Last Admin: 08/03/18 21:56 Dose: 1,250 mg Enoxaparin Sodium (Lovenox) 40 mg SC DAILY [facility]; Protocol Last Admin: 08/04/18 09:57 Dose: 40 mg Escitalopram Oxalate (Lexapro) 10 mg PO HS [facility] Last Admin: 08/03/18 21:31 Dose: 10 mg Fluticasone Propionate (Flonase) 2 spr ANIKA DAILY [facility] Last Admin: 08/04/18 09:57 Dose: Not Given Glucagon (Glucagen Diagnostic Kit) 0 mg IM STAT PRN; Protocol PRN Reason: Hypoglycemia Protocol Home Med (Acyclovir/Hydrocortisone [Xerese 5%-1% Cream]) 1 appl TOP PRN PRN PRN Reason: Itching / Pruritus Home Med (Clozapine [Fazaclo]) 200 mg PO HS [facility] Home Med (Colesevelam Hcl [Welchol]) 3.75 gm PO PRN PRN PRN Reason: Serum glucose Azithromycin 500 mg/ Sodium (Chloride) 250 mls @ 250 mls/hr IVPB DAILY [facility]; Protocol Last Admin: 08/04/18 10:00 Dose: 250 mls/hr Vancomycin HCl 1 gm/ Sodium (Chloride) 250 mls @ 250 mls/hr IVPB Q12H [facility]; Protocol Last Admin: 08/03/18 21:59 Dose: 250 mls/hr Piperacillin Sod/Tazobactam (Sod 3.375 gm/ Sodium Chloride) 100 mls @ 100 mls/hr IVPB Q8 [facility]; Protocol Last Admin: 08/04/18 10:01 Dose: 100 mls/hr Propofol (Diprivan) 1,000 mg in 100 mls @ 2.558 mls/hr IV .Q24H [facility]; Protocol Stop: 08/05/18 00:35 Last Titration: 08/04/18 05:05 Dose: 0 mcg/kg/min, 0 mls/hr Sodium Chloride (Sodium Chloride 0.9%) 1,000 mls @ 100 mls/hr IV .Q10H [facility] Stop: 08/05/18 01:15 Last Admin: 08/04/18 01:36 Dose: 100 mls/hr Ibuprofen (Motrin Tab) 600 mg PO Q6 PRN PRN Reason: Fever >100.4 F Insulin Detemir (Levemir) 15 units SC HS [facility] Last Admin: 08/03/18 21:32 Dose: 15 u Insulin Human Lispro (Humalog) 0 units SC ACHS [facility]; Protocol Last Admin: 08/04/18 06:29 Dose: 2 units Levothyroxine Sodium (Synthroid) 50 mcg PO DAILY@0630 [facility] Last Admin: 08/04/18 05:50 Dose: Not Given Losartan Potassium (Cozaar) 50 mg PO DAILY [facility] Last Admin: 08/04/18 09:31 Dose: 50 mg Multivitamins/Minerals (Therapeutic-M Tab) 1 tab PO DAILY [facility] Last Admin: 08/04/18 10:29 Dose: 1 tab Pantoprazole Sodium (Protonix Ec Tab) 20 mg PO DAILY [facility] Last Admin: 08/04/18 09:59 Dose: 20 mg Sitagliptin Phosphate (Januvia) 100 mg PO HS [facility] - Labs Labs: 08/04/18 04:45 08/04/18 04:45 PT 12.2 Seconds (9.8-13.1) 08/04/18 00:30 INR 1.1 08/04/18 00:30 APTT 31.5 Seconds (25.6-37.1) 08/02/18 22:20 - Constitutional Appears: Confused, Chronically Ill - Head Exam Head Exam: NORMOCEPHALIC - Eye Exam Eye Exam: Scleral icterus - ENT Exam ENT Exam: Mucous Membranes Dry - Neck Exam Neck Exam: Normal Inspection - Respiratory Exam Respiratory Exam: Decreased Breath Sounds - Cardiovascular Exam Cardiovascular Exam: REGULAR RHYTHM - GI/Abdominal Exam GI & Abdominal Exam: Distended - Rectal Exam Rectal Exam: Deferred Assessment and Plan - Assessment and Plan (Free Text) Assessment: s/p cardiac arrest now intubated await cultures
--- NOTE | 2018-08-04 11:01 | CP.CCUPN ---
<Renetta Kunz - Last Filed: 08/04/18 11:01> CCU Subjective - Physician Review Subjective (Free Text): Pt is a 62 y/o female residing in a shelter w/ pmhx of HTN, IDDM, Hypothyroidism, GERD, Schitzophrenia brought to [facility] ED s/p fall admitted for Sepsis due to PNU (HCAP vs Atypical PNU), with elevated lactic acid levels and receiving IV antibiotics. Overnight events: Code Martell called as pt was noted by staff to be pulseless. Pt was given epinephrine, fluid support, and intubate. AROSC was acheieved. Pt also received IV Bicarb as ABG showed acidosis.IV deprivan was given for sedation. Pt was seen and examined this morning. On Vent. IV sedation discontinued this morning. Opens eyes to voice, not focusing. Non verbal. Withdraws from pain. Does not follow verbal commands. GCS 8. Daughter at bedside. CCU Objective - Vital Signs / Intake & Output Vital Signs (Last 4 hours): Vital Signs Temp Pulse Resp BP Pulse Ox 08/04/18 09:59 78 148/67 08/04/18 09:31 80 148/67 08/04/18 09:30 69 148/67 08/04/18 08:00 98.7 F 86 14 135/63 98 Intake and Output (Last 8hrs): Intake & Output 08/03/18 08/04/18 08/04/18 22:59 06:59 14:59 Intake Total 4100 1400 Output Total 1200 500 Balance 2900 900 Weight 198 lb Intake: IV 1100 Intake, Piggyback 800 300 Oral 800 TPN/PPN 2500 Output: Urine 1200 500 Urethral (Ray) 1200 500 - Physical Exam Physical Exam Limitations: Positive for: Altered Mental Status (GCS 8) Head: Positive for: Normocephalic Pupils: Positive for: Sluggish Conjunctiva: Positive for: Normal Ears: Positive for: Normal Mouth: Positive for: Moist Mucous Membranes (ETT tube in place, yellow secretions, OG tube) Nose (External): Positive for: Other Neck: Positive for: Normal Range of Motion Respiratory/Chest: Positive for: Good Air Exchange, Rhonchi. Negative for: Respiratory Distress, Rales Cardiovascular: Positive for: Regular Rate and Rhythm. Negative for: Murmurs Abdomen: Positive for: Distention, Normal Bowel Sounds Upper Extremity: Positive for: Edema (trace pitting in upper extremities bl), NORMAL PULSES, Capillary Refill < 2s Lower Extremity: Positive for: NORMAL PULSES, Capillary Refill < 2 s. Negative for: Edema Neurological: Positive for: Other (Eyes open spotnaneously, non verbal, withdraws from pain) Skin: Positive for: Warm, Dry, Rashes Psychiatric: Positive for: Alert. Negative for: Oriented x 3, Agitated - Medications Active Medications: Active Medications Generic Name Dose Route Start Last Admin Trade Name Freq PRN Reason Stop Dose Admin Acetaminophen 650 mg 08/03/18 03:33 08/03/18 12:37 Tylenol 325mg Tab PO 650 mg Q6 PRN Administration Fever >100.4 F Albuterol Sulfate 2.5 mg 08/03/18 02:00 08/04/18 07:32 Albuterol 0.083% Inhal Veronica (2.5 Mg/3 Ml) Ud INH 2.5 mg RQ6 LESLIE Administration Amlodipine Besylate 10 mg 08/03/18 09:00 08/04/18 09:59 Norvasc PO 10 mg DAILY LESLIE Administration Aspirin 325 mg 08/03/18 09:00 08/04/18 09:59 Ecotrin PO 325 mg DAILY LESLIE Administration Atorvastatin Calcium 10 mg 08/03/18 22:00 08/03/18 21:31 Lipitor PO 10 mg HS LESLIE Administration Carvedilol 25 mg 08/03/18 09:00 08/04/18 09:30 Coreg PO 25 mg BID LESLIE Administration Dextrose 0 ml 08/03/18 03:35 Dextrose 50% Inj IV STAT PRN Hypoglycemia Protocol Protocol Dextrose 0 gm 08/03/18 03:35 Glutose 15 PO ONCE PRN Hypoglycemia Protocol Protocol Divalproex Sodium 1,250 mg 08/03/18 22:00 08/03/18 21:56 Depakote Er(Once Daily) PO 1,250 mg HS LESLIE Administration Enoxaparin Sodium 40 mg 08/03/18 09:00 08/04/18 09:57 Lovenox SC 40 mg DAILY LESLIE Administration Protocol Escitalopram Oxalate 10 mg 08/03/18 22:00 08/03/18 21:31 Lexapro PO 10 mg HS LESLIE Administration Fluticasone Propionate 2 spr 08/03/18 09:00 08/04/18 09:57 Flonase ANIKA Not Given DAILY LESLIE Glucagon 0 mg 08/03/18 03:35 Glucagen Diagnostic Kit IM STAT PRN Hypoglycemia Protocol Protocol Home Med 1 appl 08/03/18 01:25 Acyclovir/Hydrocortisone [Xerese 5%-1% Cream] TOP PRN PRN Itching / Pruritus Home Med 200 mg 08/03/18 22:00 Clozapine [Fazaclo] PO HS LESLIE Home Med 3.75 gm 08/03/18 01:25 Colesevelam Hcl [Welchol] PO PRN PRN Serum glucose Azithromycin 500 mg/ Sodium 250 mls @ 250 mls/hr 08/03/18 09:00 08/04/18 10:00 Chloride IVPB 250 mls/hr DAILY LESLIE Administration Protocol Vancomycin HCl 1 gm/ Sodium 250 mls @ 250 mls/hr 08/03/18 11:00 08/03/18 21:59 Chloride IVPB 250 mls/hr Q12H LESLIE Administration Protocol Piperacillin Sod/Tazobactam 100 mls @ 100 mls/hr 08/03/18 11:00 08/04/18 10:01 Sod 3.375 gm/ Sodium Chloride IVPB 100 mls/hr Q8 LESLIE Administration Protocol Propofol 1,000 mg in 100 mls @ 2.558 mls/hr 08/04/18 00:45 08/04/18 05:05 Diprivan IV 08/05/18 00:35 0 mcg/kg/min .Q24H LESLIE 0 mls/hr Titration Protocol 5 MCG/KG/MIN Sodium Chloride 1,000 mls @ 100 mls/hr 08/04/18 01:31 08/04/18 01:36 Sodium Chloride 0.9% IV 08/05/18 01:15 100 mls/hr .Q10H LESLIE Administration Ibuprofen 600 mg 08/03/18 13:30 Motrin Tab PO Q6 PRN Fever >100.4 F Insulin Detemir 15 units 08/03/18 22:00 08/03/18 21:32 Levemir SC 15 u HS LESLIE Administration Insulin Human Lispro 0 units 08/03/18 07:30 08/04/18 06:29 Humalog SC 2 units ACHS LESLIE Administration Protocol Levothyroxine Sodium 50 mcg 08/04/18 06:30 08/04/18 05:50 Synthroid PO Not Given DAILY@0630 LESLIE Losartan Potassium 50 mg 08/03/18 09:00 08/04/18 09:31 Cozaar PO 50 mg DAILY LESLIE Administration Multivitamins/Minerals 1 tab 08/03/18 09:00 08/04/18 10:29 Therapeutic-M Tab PO 1 tab DAILY LESLIE Administration Pantoprazole Sodium 20 mg 08/03/18 09:00 08/04/18 09:59 Protonix Ec Tab PO 20 mg DAILY LESLIE Administration Sitagliptin Phosphate 100 mg 08/03/18 22:00 Januvia PO HS LESLIE - Patient Studies Lab Studies: Microbiology Studies 08/02/18 22:58 Urine Culture - Final Urine,Catheterized No Growth (<1,000 CFU/ML) 08/02/18 22:05 Blood Culture - Preliminary Blood-Venous NO GROWTH AFTER 24 HOURS 08/02/18 22:10 Blood Culture - Preliminary Blood-Venous NO GROWTH AFTER 24 HOURS Lab Studies 08/04/18 08/04/18 08/04/18 Range/Units 09:05 08:33 04:56 WBC (4.8-10.8) K/uL RBC (3.80-5.20) Mil/uL Hgb (12.0-16.0) g/dL Hct (34.0-47.0) % MCV (81.0-99.0) fl MCH (27.0-31.0) pg MCHC (33.0-37.0) g/dL RDW (11.5-14.5) % Plt Count (130-400) K/uL PT (9.8-13.1) Seconds INR pCO2 39 (35-45) mm/Hg pO2 104 H (80-100) mm/Hg HCO3 27.2 (21-28) mmol/L ABG pH 7.45 (7.35-7.45) ABG Total CO2 28.3 H (22-28) mmol/L ABG O2 Saturation 98.9 H (95-98) % ABG O2 Content 12.5 L (15-23) ML/dL ABG Base Excess 2.9 (-2.0-3.0) mmol/L ABG Hemoglobin 9.0 L (11.7-17.4) g/dL ABG Carboxyhemoglobin 0.9 (0.5-1.5) % POC ABG HHb (Measured) 1.1 (0.0-5.0) % ABG Methemoglobin 0.4 (0.0-3.0) % ABG O2 Capacity 12.6 L (16-24) mL/dL Bridger Test Yes ABG Potassium (3.6-5.2) mmol/L A-a O2 Difference 275.0 mm/Hg Hgb O2 Saturation 97.6 (95.0-98.0) % Sodium (132-148) mmol/L Chloride (98-107) mmol/L Glucose (65-105) mg/dL Lactate (0.7-2.1) mmol/L Vent Mode Prvc/ac Mechanical Rate 14 FiO2 60.0 % Tidal Volume 450 PEEP 5 Potassium (3.6-5.0) MMOL/L Carbon Dioxide (22-30) mmol/L Anion Gap (10-20) BUN (7-17) mg/dl Creatinine (0.7-1.2) mg/dl Est GFR ( Amer) Est GFR (Non-Af Amer) POC Glucose (mg/dL) 220 H (65-110) mg/dL Random Glucose (65-105) mg/dL Hemoglobin A1c (4.2-6.5) % Calcium (8.4-10.2) mg/dL Phosphorus (2.5-4.5) mg/dl Magnesium (1.6-2.3) MG/DL Total Bilirubin (0.2-1.3) mg/dl AST (14-36) U/L ALT (9-52) U/L Alkaline Phosphatase (38-126) U/L Troponin I 0.0200 (0.00-0.120) ng/mL Total Protein (6.3-8.2) G/DL Albumin (3.5-5.0) g/dL Globulin (2.2-3.9) gm/dL Albumin/Globulin Ratio (1.0-2.1) Procalcitonin (0.19-0.49) NG/ML Free T4 (0.78-2.19) ng/dL Arterial Blood Potassium (3.6-5.2) mmol/L Valproic Acid (50.0-100.0) ug/mL 08/04/18 08/04/18 08/04/18 Range/Units 04:45 04:45 04:45 WBC (4.8-10.8) K/uL RBC (3.80-5.20) Mil/uL Hgb (12.0-16.0) g/dL Hct (34.0-47.0) % MCV (81.0-99.0) fl MCH (27.0-31.0) pg MCHC (33.0-37.0) g/dL RDW (11.5-14.5) % Plt Count (130-400) K/uL PT (9.8-13.1) Seconds INR pCO2 (35-45) mm/Hg pO2 (80-100) mm/Hg HCO3 (21-28) mmol/L ABG pH (7.35-7.45) ABG Total CO2 (22-28) mmol/L ABG O2 Saturation (95-98) % ABG O2 Content (15-23) ML/dL ABG Base Excess (-2.0-3.0) mmol/L ABG Hemoglobin (11.7-17.4) g/dL ABG Carboxyhemoglobin (0.5-1.5) % POC ABG HHb (Measured) (0.0-5.0) % ABG Methemoglobin (0.0-3.0) % ABG O2 Capacity (16-24) mL/dL Bridger Test ABG Potassium (3.6-5.2) mmol/L A-a O2 Difference mm/Hg Hgb O2 Saturation (95.0-98.0) % Sodium 136 (132-148) mmol/L Chloride 103 (98-107) mmol/L Glucose (65-105) mg/dL Lactate (0.7-2.1) mmol/L Vent Mode Mechanical Rate FiO2 % Tidal Volume PEEP Potassium 4.2 (3.6-5.0) MMOL/L Carbon Dioxide 26 (22-30) mmol/L Anion Gap 11 (10-20) BUN 10 (7-17) mg/dl Creatinine 0.4 L (0.7-1.2) mg/dl Est GFR ( Amer) > 60 Est GFR (Non-Af Amer) > 60 POC Glucose (mg/dL) (65-110) mg/dL Random Glucose 237 H (65-105) mg/dL Hemoglobin A1c (4.2-6.5) % Calcium 8.2 L (8.4-10.2) mg/dL Phosphorus (2.5-4.5) mg/dl Magnesium (1.6-2.3) MG/DL Total Bilirubin (0.2-1.3) mg/dl AST (14-36) U/L ALT (9-52) U/L Alkaline Phosphatase (38-126) U/L Troponin I (0.00-0.120) ng/mL Total Protein (6.3-8.2) G/DL Albumin (3.5-5.0) g/dL Globulin (2.2-3.9) gm/dL Albumin/Globulin Ratio (1.0-2.1) Procalcitonin (0.19-0.49) NG/ML Free T4 1.54 (0.78-2.19) ng/dL Arterial Blood Potassium (3.6-5.2) mmol/L Valproic Acid 50.1 (50.0-100.0) ug/mL 08/04/18 08/04/18 08/04/18 Range/Units 04:45 01:20 00:30 WBC 13.2 H (4.8-10.8) K/uL RBC 3.70 L (3.80-5.20) Mil/uL Hgb 9.6 L (12.0-16.0) g/dL Hct 29.2 L (34.0-47.0) % MCV 79.0 L (81.0-99.0) fl MCH 25.9 L (27.0-31.0) pg MCHC 32.8 L (33.0-37.0) g/dL RDW 15.3 H (11.5-14.5) % Plt Count 272 (130-400) K/uL PT (9.8-13.1) Seconds INR pCO2 37 (35-45) mm/Hg pO2 99 (80-100) mm/Hg HCO3 26.9 (21-28) mmol/L ABG pH 7.46 H (7.35-7.45) ABG Total CO2 27.4 (22-28) mmol/L ABG O2 Saturation 98.4 H (95-98) % ABG O2 Content (15-23) ML/dL ABG Base Excess 2.5 (-2.0-3.0) mmol/L ABG Hemoglobin (11.7-17.4) g/dL ABG Carboxyhemoglobin (0.5-1.5) % POC ABG HHb (Measured) (0.0-5.0) % ABG Methemoglobin (0.0-3.0) % ABG O2 Capacity (16-24) mL/dL Bridger Test Yes ABG Potassium 3.3 L (3.6-5.2) mmol/L A-a O2 Difference 568.0 mm/Hg Hgb O2 Saturation (95.0-98.0) % Sodium 135.0 135 (132-148) mmol/L Chloride 103.0 100 (98-107) mmol/L Glucose 294 H (65-105) mg/dL Lactate 1.4 (0.7-2.1) mmol/L Vent Mode A/c Mechanical Rate 18 FiO2 100.0 % Tidal Volume 450 PEEP 5 Potassium 3.9 (3.6-5.0) MMOL/L Carbon Dioxide 22 (22-30) mmol/L Anion Gap 17 (10-20) BUN 10 (7-17) mg/dl Creatinine 0.6 L (0.7-1.2) mg/dl Est GFR ( Amer) > 60 Est GFR (Non-Af Amer) > 60 POC Glucose (mg/dL) (65-110) mg/dL Random Glucose 277 H (65-105) mg/dL Hemoglobin A1c (4.2-6.5) % Calcium 8.5 (8.4-10.2) mg/dL Phosphorus 4.6 H (2.5-4.5) mg/dl Magnesium 1.9 (1.6-2.3) MG/DL Total Bilirubin 0.3 (0.2-1.3) mg/dl AST 107 H D (14-36) U/L ALT 75 H D (9-52) U/L Alkaline Phosphatase 104 (38-126) U/L Troponin I < 0.0120 (0.00-0.120) ng/mL Total Protein 6.6 (6.3-8.2) G/DL Albumin 3.3 L (3.5-5.0) g/dL Globulin 3.4 (2.2-3.9) gm/dL Albumin/Globulin Ratio 1.0 (1.0-2.1) Procalcitonin (0.19-0.49) NG/ML Free T4 (0.78-2.19) ng/dL Arterial Blood Potassium 3.3 L (3.6-5.2) mmol/L Valproic Acid (50.0-100.0) ug/mL 08/04/18 08/04/18 08/03/18 Range/Units 00:30 00:20 21:25 WBC (4.8-10.8) K/uL RBC (3.80-5.20) Mil/uL Hgb (12.0-16.0) g/dL Hct (34.0-47.0) % MCV (81.0-99.0) fl MCH (27.0-31.0) pg MCHC (33.0-37.0) g/dL RDW (11.5-14.5) % Plt Count (130-400) K/uL PT 12.2 (9.8-13.1) Seconds INR 1.1 pCO2 (35-45) mm/Hg pO2 (80-100) mm/Hg HCO3 (21-28) mmol/L ABG pH (7.35-7.45) ABG Total CO2 (22-28) mmol/L ABG O2 Saturation (95-98) % ABG O2 Content (15-23) ML/dL ABG Base Excess (-2.0-3.0) mmol/L ABG Hemoglobin (11.7-17.4) g/dL ABG Carboxyhemoglobin (0.5-1.5) % POC ABG HHb (Measured) (0.0-5.0) % ABG Methemoglobin (0.0-3.0) % ABG O2 Capacity (16-24) mL/dL Bridger Test ABG Potassium (3.6-5.2) mmol/L A-a O2 Difference mm/Hg Hgb O2 Saturation (95.0-98.0) % Sodium (132-148) mmol/L Chloride (98-107) mmol/L Glucose (65-105) mg/dL Lactate (0.7-2.1) mmol/L Vent Mode Mechanical Rate FiO2 % Tidal Volume PEEP Potassium (3.6-5.0) MMOL/L Carbon Dioxide (22-30) mmol/L Anion Gap (10-20) BUN (7-17) mg/dl Creatinine (0.7-1.2) mg/dl Est GFR ( Amer) Est GFR (Non-Af Amer) POC Glucose (mg/dL) 310 H 194 H (65-110) mg/dL Random Glucose (65-105) mg/dL Hemoglobin A1c (4.2-6.5) % Calcium (8.4-10.2) mg/dL Phosphorus (2.5-4.5) mg/dl Magnesium (1.6-2.3) MG/DL Total Bilirubin (0.2-1.3) mg/dl AST (14-36) U/L ALT (9-52) U/L Alkaline Phosphatase (38-126) U/L Troponin I (0.00-0.120) ng/mL Total Protein (6.3-8.2) G/DL Albumin (3.5-5.0) g/dL Globulin (2.2-3.9) gm/dL Albumin/Globulin Ratio (1.0-2.1) Procalcitonin (0.19-0.49) NG/ML Free T4 (0.78-2.19) ng/dL Arterial Blood Potassium (3.6-5.2) mmol/L Valproic Acid (50.0-100.0) ug/mL 08/03/18 08/03/18 08/03/18 Range/Units 15:56 12:24 05:21 WBC (4.8-10.8) K/uL RBC (3.80-5.20) Mil/uL Hgb (12.0-16.0) g/dL Hct (34.0-47.0) % MCV (81.0-99.0) fl MCH (27.0-31.0) pg MCHC (33.0-37.0) g/dL RDW (11.5-14.5) % Plt Count (130-400) K/uL PT (9.8-13.1) Seconds INR pCO2 (35-45) mm/Hg pO2 (80-100) mm/Hg HCO3 (21-28) mmol/L ABG pH (7.35-7.45) ABG Total CO2 (22-28) mmol/L ABG O2 Saturation (95-98) % ABG O2 Content (15-23) ML/dL ABG Base Excess (-2.0-3.0) mmol/L ABG Hemoglobin (11.7-17.4) g/dL ABG Carboxyhemoglobin (0.5-1.5) % POC ABG HHb (Measured) (0.0-5.0) % ABG Methemoglobin (0.0-3.0) % ABG O2 Capacity (16-24) mL/dL Bridger Test ABG Potassium (3.6-5.2) mmol/L A-a O2 Difference mm/Hg Hgb O2 Saturation (95.0-98.0) % Sodium (132-148) mmol/L Chloride (98-107) mmol/L Glucose (65-105) mg/dL Lactate (0.7-2.1) mmol/L Vent Mode Mechanical Rate FiO2 % Tidal Volume PEEP Potassium (3.6-5.0) MMOL/L Carbon Dioxide (22-30) mmol/L Anion Gap (10-20) BUN (7-17) mg/dl Creatinine (0.7-1.2) mg/dl Est GFR ( Amer) Est GFR (Non-Af Amer) POC Glucose (mg/dL) 158 H 235 H 129 H (65-110) mg/dL Random Glucose (65-105) mg/dL Hemoglobin A1c (4.2-6.5) % Calcium (8.4-10.2) mg/dL Phosphorus (2.5-4.5) mg/dl Magnesium (1.6-2.3) MG/DL Total Bilirubin (0.2-1.3) mg/dl AST (14-36) U/L ALT (9-52) U/L Alkaline Phosphatase (38-126) U/L Troponin I (0.00-0.120) ng/mL Total Protein (6.3-8.2) G/DL Albumin (3.5-5.0) g/dL Globulin (2.2-3.9) gm/dL Albumin/Globulin Ratio (1.0-2.1) Procalcitonin (0.19-0.49) NG/ML Free T4 (0.78-2.19) ng/dL Arterial Blood Potassium (3.6-5.2) mmol/L Valproic Acid (50.0-100.0) ug/mL 08/03/18 08/03/18 08/02/18 Range/Units 04:25 03:39 23:48 WBC (4.8-10.8) K/uL RBC (3.80-5.20) Mil/uL Hgb (12.0-16.0) g/dL Hct (34.0-47.0) % MCV (81.0-99.0) fl MCH (27.0-31.0) pg MCHC (33.0-37.0) g/dL RDW (11.5-14.5) % Plt Count (130-400) K/uL PT (9.8-13.1) Seconds INR pCO2 (35-45) mm/Hg pO2 (80-100) mm/Hg HCO3 (21-28) mmol/L ABG pH (7.35-7.45) ABG Total CO2 (22-28) mmol/L ABG O2 Saturation (95-98) % ABG O2 Content (15-23) ML/dL ABG Base Excess (-2.0-3.0) mmol/L ABG Hemoglobin (11.7-17.4) g/dL ABG Carboxyhemoglobin (0.5-1.5) % POC ABG HHb (Measured) (0.0-5.0) % ABG Methemoglobin (0.0-3.0) % ABG O2 Capacity (16-24) mL/dL Bridger Test ABG Potassium (3.6-5.2) mmol/L A-a O2 Difference mm/Hg Hgb O2 Saturation (95.0-98.0) % Sodium (132-148) mmol/L Chloride (98-107) mmol/L Glucose (65-105) mg/dL Lactate (0.7-2.1) mmol/L Vent Mode Mechanical Rate FiO2 % Tidal Volume PEEP Potassium (3.6-5.0) MMOL/L Carbon Dioxide (22-30) mmol/L Anion Gap (10-20) BUN (7-17) mg/dl Creatinine (0.7-1.2) mg/dl Est GFR ( Amer) Est GFR (Non-Af Amer) POC Glucose (mg/dL) 158 H (65-110) mg/dL Random Glucose (65-105) mg/dL Hemoglobin A1c 9.5 H (4.2-6.5) % Calcium (8.4-10.2) mg/dL Phosphorus (2.5-4.5) mg/dl Magnesium (1.6-2.3) MG/DL Total Bilirubin (0.2-1.3) mg/dl AST (14-36) U/L ALT (9-52) U/L Alkaline Phosphatase (38-126) U/L Troponin I (0.00-0.120) ng/mL Total Protein (6.3-8.2) G/DL Albumin (3.5-5.0) g/dL Globulin (2.2-3.9) gm/dL Albumin/Globulin Ratio (1.0-2.1) Procalcitonin 0.43 (0.19-0.49) NG/ML Free T4 (0.78-2.19) ng/dL Arterial Blood Potassium (3.6-5.2) mmol/L Valproic Acid (50.0-100.0) ug/mL 08/02/18 Range/Units 22:23 WBC (4.8-10.8) K/uL RBC (3.80-5.20) Mil/uL Hgb (12.0-16.0) g/dL Hct (34.0-47.0) % MCV (81.0-99.0) fl MCH (27.0-31.0) pg MCHC (33.0-37.0) g/dL RDW (11.5-14.5) % Plt Count (130-400) K/uL PT (9.8-13.1) Seconds INR pCO2 41 (35-45) mm/Hg pO2 200 H (80-100) mm/Hg HCO3 27.6 (21-28) mmol/L ABG pH 7.44 (7.35-7.45) ABG Total CO2 29.1 H (22-28) mmol/L ABG O2 Saturation 98.7 H (95-98) % ABG O2 Content (15-23) ML/dL ABG Base Excess 3.3 H (-2.0-3.0) mmol/L ABG Hemoglobin (11.7-17.4) g/dL ABG Carboxyhemoglobin (0.5-1.5) % POC ABG HHb (Measured) (0.0-5.0) % ABG Methemoglobin (0.0-3.0) % ABG O2 Capacity (16-24) mL/dL Bridger Test Yes ABG Potassium 4.2 (3.6-5.2) mmol/L A-a O2 Difference 462.0 mm/Hg Hgb O2 Saturation (95.0-98.0) % Sodium 134.0 (132-148) mmol/L Chloride 106.0 (98-107) mmol/L Glucose 241 H (65-105) mg/dL Lactate 0.8 (0.7-2.1) mmol/L Vent Mode A/c Mechanical Rate 14 FiO2 100.0 % Tidal Volume 450 PEEP 5 Potassium (3.6-5.0) MMOL/L Carbon Dioxide (22-30) mmol/L Anion Gap (10-20) BUN (7-17) mg/dl Creatinine (0.7-1.2) mg/dl Est GFR ( Amer) Est GFR (Non-Af Amer) POC Glucose (mg/dL) (65-110) mg/dL Random Glucose (65-105) mg/dL Hemoglobin A1c (4.2-6.5) % Calcium (8.4-10.2) mg/dL Phosphorus (2.5-4.5) mg/dl Magnesium (1.6-2.3) MG/DL Total Bilirubin (0.2-1.3) mg/dl AST (14-36) U/L ALT (9-52) U/L Alkaline Phosphatase (38-126) U/L Troponin I (0.00-0.120) ng/mL Total Protein (6.3-8.2) G/DL Albumin (3.5-5.0) g/dL Globulin (2.2-3.9) gm/dL Albumin/Globulin Ratio (1.0-2.1) Procalcitonin (0.19-0.49) NG/ML Free T4 (0.78-2.19) ng/dL Arterial Blood Potassium 4.2 (3.6-5.2) mmol/L Valproic Acid (50.0-100.0) ug/mL Laboratory Results - last 24 hr 08/02/18 08/02/18 08/03/18 22:23 23:48 03:39 WBC RBC Hgb Hct MCV MCH MCHC RDW Plt Count PT INR pCO2 41 pO2 200 H HCO3 27.6 ABG pH 7.44 ABG Total CO2 29.1 H ABG O2 Saturation 98.7 H ABG O2 Content ABG Base Excess 3.3 H ABG Hemoglobin ABG Carboxyhemoglobin POC ABG HHb (Measured) ABG Methemoglobin ABG O2 Capacity Bridger Test Yes ABG Potassium 4.2 A-a O2 Difference 462.0 Hgb O2 Saturation Sodium 134.0 Chloride 106.0 Glucose 241 H Lactate 0.8 Vent Mode A/c Mechanical Rate 14 FiO2 100.0 Tidal Volume 450 PEEP 5 Potassium Carbon Dioxide Anion Gap BUN Creatinine Est GFR ( Amer) Est GFR (Non-Af Amer) POC Glucose (mg/dL) 158 H Random Glucose Hemoglobin A1c 9.5 H Calcium Phosphorus Magnesium Total Bilirubin AST ALT Alkaline Phosphatase Troponin I Total Protein Albumin Globulin Albumin/Globulin Ratio Procalcitonin Free T4 Arterial Blood Potassium 4.2 Valproic Acid 08/03/18 08/03/18 08/03/18 04:25 05:21 12:24 WBC RBC Hgb Hct MCV MCH MCHC RDW Plt Count PT INR pCO2 pO2 HCO3 ABG pH ABG Total CO2 ABG O2 Saturation ABG O2 Content ABG Base Excess ABG Hemoglobin ABG Carboxyhemoglobin POC ABG HHb (Measured) ABG Methemoglobin ABG O2 Capacity Bridger Test ABG Potassium A-a O2 Difference Hgb O2 Saturation Sodium Chloride Glucose Lactate Vent Mode Mechanical Rate FiO2 Tidal Volume PEEP Potassium Carbon Dioxide Anion Gap BUN Creatinine Est GFR ( Amer) Est GFR (Non-Af Amer) POC Glucose (mg/dL) 129 H 235 H Random Glucose Hemoglobin A1c Calcium Phosphorus Magnesium Total Bilirubin AST ALT Alkaline Phosphatase Troponin I Total Protein Albumin Globulin Albumin/Globulin Ratio Procalcitonin 0.43 Free T4 Arterial Blood Potassium Valproic Acid 08/03/18 08/03/18 08/04/18 15:56 21:25 00:20 WBC RBC Hgb Hct MCV MCH MCHC RDW Plt Count PT INR pCO2 pO2 HCO3 ABG pH ABG Total CO2 ABG O2 Saturation ABG O2 Content ABG Base Excess ABG Hemoglobin ABG Carboxyhemoglobin POC ABG HHb (Measured) ABG Methemoglobin ABG O2 Capacity Bridger Test ABG Potassium A-a O2 Difference Hgb O2 Saturation Sodium Chloride Glucose Lactate Vent Mode Mechanical Rate FiO2 Tidal Volume PEEP Potassium Carbon Dioxide Anion Gap BUN Creatinine Est GFR ( Amer) Est GFR (Non-Af Amer) POC Glucose (mg/dL) 158 H 194 H 310 H Random Glucose Hemoglobin A1c Calcium Phosphorus Magnesium Total Bilirubin AST ALT Alkaline Phosphatase Troponin I Total Protein Albumin Globulin Albumin/Globulin Ratio Procalcitonin Free T4 Arterial Blood Potassium Valproic Acid 08/04/18 08/04/18 08/04/18 00:30 00:30 01:20 WBC RBC Hgb Hct MCV MCH MCHC RDW Plt Count PT 12.2 INR 1.1 pCO2 37 pO2 99 HCO3 26.9 ABG pH 7.46 H ABG Total CO2 27.4 ABG O2 Saturation 98.4 H ABG O2 Content ABG Base Excess 2.5 ABG Hemoglobin ABG Carboxyhemoglobin POC ABG HHb (Measured) ABG Methemoglobin ABG O2 Capacity Bridger Test Yes ABG Potassium 3.3 L A-a O2 Difference 568.0 Hgb O2 Saturation Sodium 135 135.0 Chloride 100 103.0 Glucose 294 H Lactate 1.4 Vent Mode A/c Mechanical Rate 18 FiO2 100.0 Tidal Volume 450 PEEP 5 Potassium 3.9 Carbon Dioxide 22 Anion Gap 17 BUN 10 Creatinine 0.6 L Est GFR ( Amer) > 60 Est GFR (Non-Af Amer) > 60 POC Glucose (mg/dL) Random Glucose 277 H Hemoglobin A1c Calcium 8.5 Phosphorus 4.6 H Magnesium 1.9 Total Bilirubin 0.3 AST 107 H D ALT 75 H D Alkaline Phosphatase 104 Troponin I < 0.0120 Total Protein 6.6 Albumin 3.3 L Globulin 3.4 Albumin/Globulin Ratio 1.0 Procalcitonin Free T4 Arterial Blood Potassium 3.3 L Valproic Acid 08/04/18 08/04/18 08/04/18 04:45 04:45 04:45 WBC 13.2 H RBC 3.70 L Hgb 9.6 L Hct 29.2 L MCV 79.0 L MCH 25.9 L MCHC 32.8 L RDW 15.3 H Plt Count 272 PT INR pCO2 pO2 HCO3 ABG pH ABG Total CO2 ABG O2 Saturation ABG O2 Content ABG Base Excess ABG Hemoglobin ABG Carboxyhemoglobin POC ABG HHb (Measured) ABG Methemoglobin ABG O2 Capacity Bridger Test ABG Potassium A-a O2 Difference Hgb O2 Saturation Sodium 136 Chloride 103 Glucose Lactate Vent Mode Mechanical Rate FiO2 Tidal Volume PEEP Potassium 4.2 Carbon Dioxide 26 Anion Gap 11 BUN 10 Creatinine 0.4 L Est GFR ( Amer) > 60 Est GFR (Non-Af Amer) > 60 POC Glucose (mg/dL) Random Glucose 237 H Hemoglobin A1c Calcium 8.2 L Phosphorus Magnesium Total Bilirubin AST ALT Alkaline Phosphatase Troponin I Total Protein Albumin Globulin Albumin/Globulin Ratio Procalcitonin Free T4 1.54 Arterial Blood Potassium Valproic Acid 08/04/18 08/04/18 08/04/18 04:45 04:56 08:33 WBC RBC Hgb Hct MCV MCH MCHC RDW Plt Count PT INR pCO2 pO2 HCO3 ABG pH ABG Total CO2 ABG O2 Saturation ABG O2 Content ABG Base Excess ABG Hemoglobin ABG Carboxyhemoglobin POC ABG HHb (Measured) ABG Methemoglobin ABG O2 Capacity Bridger Test ABG Potassium A-a O2 Difference Hgb O2 Saturation Sodium Chloride Glucose Lactate Vent Mode Mechanical Rate FiO2 Tidal Volume PEEP Potassium Carbon Dioxide Anion Gap BUN Creatinine Est GFR ( Amer) Est GFR (Non-Af Amer) POC Glucose (mg/dL) 220 H Random Glucose Hemoglobin A1c Calcium Phosphorus Magnesium Total Bilirubin AST ALT Alkaline Phosphatase Troponin I 0.0200 Total Protein Albumin Globulin Albumin/Globulin Ratio Procalcitonin Free T4 Arterial Blood Potassium Valproic Acid 50.1 08/04/18 09:05 WBC RBC Hgb Hct MCV MCH MCHC RDW Plt Count PT INR pCO2 39 pO2 104 H HCO3 27.2 ABG pH 7.45 ABG Total CO2 28.3 H ABG O2 Saturation 98.9 H ABG O2 Content 12.5 L ABG Base Excess 2.9 ABG Hemoglobin 9.0 L ABG Carboxyhemoglobin 0.9 POC ABG HHb (Measured) 1.1 ABG Methemoglobin 0.4 ABG O2 Capacity 12.6 L Bridger Test Yes ABG Potassium A-a O2 Difference 275.0 Hgb O2 Saturation 97.6 Sodium Chloride Glucose Lactate Vent Mode Prvc/ac Mechanical Rate 14 FiO2 60.0 Tidal Volume 450 PEEP 5 Potassium Carbon Dioxide Anion Gap BUN Creatinine Est GFR ( Amer) Est GFR (Non-Af Amer) POC Glucose (mg/dL) Random Glucose Hemoglobin A1c Calcium Phosphorus Magnesium Total Bilirubin AST ALT Alkaline Phosphatase Troponin I Total Protein Albumin Globulin Albumin/Globulin Ratio Procalcitonin Free T4 Arterial Blood Potassium Valproic Acid EKG/Cardiology Studies: Cardiology / EKG Studies 08/04/18 EKG [ELECTROCARDIOGRAM] Stat Comment: Mode Of Transportation: Reason For Exam: code blue Fingerstick Blood Sugar Results: 220 Critical Care Progress Note - Nutrition Nutrition: Nutrition Category Date Time Status Consistent Carbohydrate [DIET] Diets 08/03/18 Breakfast Active Assessment/Plan - Assessment and Plan (Free Text) Assessment: Pt is a 62 y/o female residing in a shelter w/ pmhx of HTN, IDDM, Hypothy roidism, GERD, Schitzophrenia brought to [facility] ED s/p fall admitted for Sepsis due to PNU (HCAP vs Atypical PNU), with elevated lactic acid levels and receiving IV antibiotics. Coded overnight leading to intubation for protection of airways and placed on sedation. #S/P Cardiac Arrest #Sepsis 2/2 to Pneumonia #AMS #Mechanical Ventilation Plan: #S/P Cardiac Arrest -AROSC achieved -EKG NSR -Serial troponins ; 0.01> 0.02 -Likely secondary to Acidosis which resolved after receiving IV Bicarb # Sepsis -Hemodynamically stable -Last fever on 08/03, Tmax 102.9 -Luekocytosis improving 13.2 from 17.2 -Lactic Acid 1.4 -BCx x2 no growth in 24, UCx no growth in 24 -Etiology likely Respiratory: Cxray significant for R. Base Infiltrate, and left perihilar basilar distributions. HCAP vs Atypical PNU -C/W IV Antibiotics: Vanco, Zosyn, Azithromycin -ID on board, Dr. Castorena #AMS -Currently GCS 8, noted to be more alert this morning as per RN -On admission pt noted to be lethargic, likely metabolic encephalopathy in setting of severe sepsis; Head CT on admission- no acute findings -Placed on IV Deprivan after intubation which was discontinued this morning -Neuro checks q4, avoid sedative medication #Mechanical Ventilation -Indication: intubated on 08/03 s/p cardiac arrest due to poor mental status for protection of airways -ABG this morning, pH 7:45, pCO2 39, HCO3 27.2 on FIO2 60% -Will attempt weaning trials once patients mental status improves #HTN, HLD, Hypothyroidism,DM Schitzophrenia -Will resume all home meds except: Clozapine to avoid sedative effect #Diet: Tube feeedings as ordered #GI Ulcer PPX: PPI IV #DVT ppx: Lovenox 400 SQ daily Full Code Next of Kin: Kym, daughter <Kartik Pettit V - Last Filed: 08/04/18 12:25> CCU Subjective - Physician Review Events Since Last Encounter (Free Text): 08/04/18 12:24 patient is seen and examined at bedside with resident. case discussed in AM ICU rounds. Agree with plan of care as detailed in Resident's note CCU Objective - Vital Signs / Intake & Output Vital Signs (Last 4 hours): Vital Signs Pulse BP 08/04/18 09:59 78 148/67 08/04/18 09:31 80 148/67 08/04/18 09:30 69 148/67 Intake and Output (Last 8hrs): Intake & Output 08/03/18 08/04/18 08/04/18 22:59 06:59 14:59 Intake Total 4100 1400 Output Total 1200 500 Balance 2900 900 Weight 198 lb Intake: IV 1100 Intake, Piggyback 800 300 Oral 800 TPN/PPN 2500 Output: Urine 1200 500 Urethral (Ray) 1200 500 - Medications Active Medications: Active Medications Generic Name Dose Route Start Last Admin Trade Name Freq PRN Reason Stop Dose Admin Acetaminophen 650 mg 08/03/18 03:33 08/03/18 12:37 Tylenol 325mg Tab PO 650 mg Q6 PRN Administration Fever >100.4 F Albuterol Sulfate 2.5 mg 08/03/18 02:00 08/04/18 07:32 Albuterol 0.083% Inhal Veronica (2.5 Mg/3 Ml) Ud INH 2.5 mg RQ6 LESLIE Administration Amlodipine Besylate 10 mg 08/03/18 09:00 08/04/18 09:59 Norvasc PO 10 mg DAILY LESLIE Administration Aspirin 325 mg 08/03/18 09:00 08/04/18 09:59 Ecotrin PO 325 mg DAILY LESLIE Administration Atorvastatin Calcium 10 mg 08/03/18 22:00 08/03/18 21:31 Lipitor PO 10 mg HS LESLIE Administration Carvedilol 25 mg 08/03/18 09:00 08/04/18 09:30 Coreg PO 25 mg BID LESLIE Administration Dextrose 0 ml 08/03/18 03:35 Dextrose 50% Inj IV STAT PRN Hypoglycemia Protocol Protocol Dextrose 0 gm 08/03/18 03:35 Glutose 15 PO ONCE PRN Hypoglycemia Protocol Protocol Divalproex Sodium 1,250 mg 08/03/18 22:00 08/03/18 21:56 Depakote Er(Once Daily) PO 1,250 mg HS LESLIE Administration Enoxaparin Sodium 40 mg 08/03/18 09:00 08/04/18 09:57 Lovenox SC 40 mg DAILY LESLIE Administration Protocol Escitalopram Oxalate 10 mg 08/03/18 22:00 08/03/18 21:31 Lexapro PO 10 mg HS LESLIE Administration Fluticasone Propionate 2 spr 08/03/18 09:00 08/04/18 09:57 Flonase ANIKA Not Given DAILY LESLIE Glucagon 0 mg 08/03/18 03:35 Glucagen Diagnostic Kit IM STAT PRN Hypoglycemia Protocol Protocol Home Med 1 appl 08/03/18 01:25 Acyclovir/Hydrocortisone [Xerese 5%-1% Cream] TOP PRN PRN Itching / Pruritus Home Med 200 mg 08/03/18 22:00 Clozapine [Fazaclo] PO HS LESLIE Home Med 3.75 gm 08/03/18 01:25 Colesevelam Hcl [Welchol] PO PRN PRN Serum glucose Azithromycin 500 mg/ Sodium 250 mls @ 250 mls/hr 08/03/18 09:00 08/04/18 10:00 Chloride IVPB 250 mls/hr DAILY LESLIE Administration Protocol Vancomycin HCl 1 gm/ Sodium 250 mls @ 250 mls/hr 08/03/18 11:00 08/04/18 11:04 Chloride IVPB 250 mls/hr Q12H LESLIE Administration Protocol Piperacillin Sod/Tazobactam 100 mls @ 100 mls/hr 08/03/18 11:00 08/04/18 10:01 Sod 3.375 gm/ Sodium Chloride IVPB 100 mls/hr Q8 LESLIE Administration Protocol Sodium Chloride 1,000 mls @ 100 mls/hr 08/04/18 01:31 08/04/18 01:36 Sodium Chloride 0.9% IV 08/05/18 01:15 100 mls/hr .Q10H LESLIE Administration Ibuprofen 600 mg 08/03/18 13:30 Motrin Tab PO Q6 PRN Fever >100.4 F Insulin Detemir 15 units 08/03/18 22:00 08/03/18 21:32 Levemir SC 15 u HS LESLIE Administration Insulin Human Lispro 0 units 08/03/18 07:30 08/04/18 06:29 Humalog SC 2 units ACHS LESLIE Administration Protocol Levothyroxine Sodium 50 mcg 08/04/18 06:30 08/04/18 05:50 Synthroid PO Not Given DAILY@0630 LESLIE Losartan Potassium 50 mg 08/03/18 09:00 08/04/18 09:31 Cozaar PO 50 mg DAILY LESLIE Administration Multivitamins/Minerals 1 tab 08/03/18 09:00 08/04/18 10:29 Therapeutic-M Tab PO 1 tab DAILY LESLIE Administration Pantoprazole Sodium 20 mg 08/03/18 09:00 08/04/18 09:59 Protonix Ec Tab PO 20 mg DAILY LESLIE Administration Sitagliptin Phosphate 100 mg 08/03/18 22:00 Januvia PO HS LESLIE - Patient Studies Lab Studies: Microbiology Studies 08/02/18 22:58 Urine Culture - Final Urine,Catheterized No Growth (<1,000 CFU/ML) 08/02/18 22:05 Blood Culture - Preliminary Blood-Venous NO GROWTH AFTER 24 HOURS 08/02/18 22:10 Blood Culture - Preliminary Blood-Venous NO GROWTH AFTER 24 HOURS Lab Studies 08/04/18 08/04/18 08/04/18 Range/Units 09:05 08:33 04:56 WBC (4.8-10.8) K/uL RBC (3.80-5.20) Mil/uL Hgb (12.0-16.0) g/dL Hct (34.0-47.0) % MCV (81.0-99.0) fl MCH (27.0-31.0) pg MCHC (33.0-37.0) g/dL RDW (11.5-14.5) % Plt Count (130-400) K/uL PT (9.8-13.1) Seconds INR pCO2 39 (35-45) mm/Hg pO2 104 H (80-100) mm/Hg HCO3 27.2 (21-28) mmol/L ABG pH 7.45 (7.35-7.45) ABG Total CO2 28.3 H (22-28) mmol/L ABG O2 Saturation 98.9 H (95-98) % ABG O2 Content 12.5 L (15-23) ML/dL ABG Base Excess 2.9 (-2.0-3.0) mmol/L ABG Hemoglobin 9.0 L (11.7-17.4) g/dL ABG Carboxyhemoglobin 0.9 (0.5-1.5) % POC ABG HHb (Measured) 1.1 (0.0-5.0) % ABG Methemoglobin 0.4 (0.0-3.0) % ABG O2 Capacity 12.6 L (16-24) mL/dL Bridegr Test Yes ABG Potassium (3.6-5.2) mmol/L A-a O2 Difference 275.0 mm/Hg Hgb O2 Saturation 97.6 (95.0-98.0) % Sodium (132-148) mmol/L Chloride (98-107) mmol/L Glucose (65-105) mg/dL Lactate (0.7-2.1) mmol/L Vent Mode Prvc/ac Mechanical Rate 14 FiO2 60.0 % Tidal Volume 450 PEEP 5 Potassium (3.6-5.0) MMOL/L Carbon Dioxide (22-30) mmol/L Anion Gap (10-20) BUN (7-17) mg/dl Creatinine (0.7-1.2) mg/dl Est GFR ( Amer) Est GFR (Non-Af Amer) POC Glucose (mg/dL) 220 H (65-110) mg/dL Random Glucose (65-105) mg/dL Calcium (8.4-10.2) mg/dL Phosphorus (2.5-4.5) mg/dl Magnesium (1.6-2.3) MG/DL Total Bilirubin (0.2-1.3) mg/dl AST (14-36) U/L ALT (9-52) U/L Alkaline Phosphatase (38-126) U/L Troponin I 0.0200 (0.00-0.120) ng/mL Total Protein (6.3-8.2) G/DL Albumin (3.5-5.0) g/dL Globulin (2.2-3.9) gm/dL Albumin/Globulin Ratio (1.0-2.1) Procalcitonin (0.19-0.49) NG/ML Free T4 (0.78-2.19) ng/dL Arterial Blood Potassium (3.6-5.2) mmol/L Valproic Acid (50.0-100.0) ug/mL Cold Agglutinins (NEGATIVE) 08/04/18 08/04/18 08/04/18 Range/Units 04:45 04:45 04:45 WBC (4.8-10.8) K/uL RBC (3.80-5.20) Mil/uL Hgb (12.0-16.0) g/dL Hct (34.0-47.0) % MCV (81.0-99.0) fl MCH (27.0-31.0) pg MCHC (33.0-37.0) g/dL RDW (11.5-14.5) % Plt Count (130-400) K/uL PT (9.8-13.1) Seconds INR pCO2 (35-45) mm/Hg pO2 (80-100) mm/Hg HCO3 (21-28) mmol/L ABG pH (7.35-7.45) ABG Total CO2 (22-28) mmol/L ABG O2 Saturation (95-98) % ABG O2 Content (15-23) ML/dL ABG Base Excess (-2.0-3.0) mmol/L ABG Hemoglobin (11.7-17.4) g/dL ABG Carboxyhemoglobin (0.5-1.5) % POC ABG HHb (Measured) (0.0-5.0) % ABG Methemoglobin (0.0-3.0) % ABG O2 Capacity (16-24) mL/dL Bridger Test ABG Potassium (3.6-5.2) mmol/L A-a O2 Difference mm/Hg Hgb O2 Saturation (95.0-98.0) % Sodium 136 (132-148) mmol/L Chloride 103 (98-107) mmol/L Glucose (65-105) mg/dL Lactate (0.7-2.1) mmol/L Vent Mode Mechanical Rate FiO2 % Tidal Volume PEEP Potassium 4.2 (3.6-5.0) MMOL/L Carbon Dioxide 26 (22-30) mmol/L Anion Gap 11 (10-20) BUN 10 (7-17) mg/dl Creatinine 0.4 L (0.7-1.2) mg/dl Est GFR ( Amer) > 60 Est GFR (Non-Af Amer) > 60 POC Glucose (mg/dL) (65-110) mg/dL Random Glucose 237 H (65-105) mg/dL Calcium 8.2 L (8.4-10.2) mg/dL Phosphorus (2.5-4.5) mg/dl Magnesium (1.6-2.3) MG/DL Total Bilirubin (0.2-1.3) mg/dl AST (14-36) U/L ALT (9-52) U/L Alkaline Phosphatase (38-126) U/L Troponin I (0.00-0.120) ng/mL Total Protein (6.3-8.2) G/DL Albumin (3.5-5.0) g/dL Globulin (2.2-3.9) gm/dL Albumin/Globulin Ratio (1.0-2.1) Procalcitonin (0.19-0.49) NG/ML Free T4 1.54 (0.78-2.19) ng/dL Arterial Blood Potassium (3.6-5.2) mmol/L Valproic Acid 50.1 (50.0-100.0) ug/mL Cold Agglutinins (NEGATIVE) 08/04/18 08/04/18 08/04/18 Range/Units 04:45 01:20 00:30 WBC 13.2 H (4.8-10.8) K/uL RBC 3.70 L (3.80-5.20) Mil/uL Hgb 9.6 L (12.0-16.0) g/dL Hct 29.2 L (34.0-47.0) % MCV 79.0 L (81.0-99.0) fl MCH 25.9 L (27.0-31.0) pg MCHC 32.8 L (33.0-37.0) g/dL RDW 15.3 H (11.5-14.5) % Plt Count 272 (130-400) K/uL PT (9.8-13.1) Seconds INR pCO2 37 (35-45) mm/Hg pO2 99 (80-100) mm/Hg HCO3 26.9 (21-28) mmol/L ABG pH 7.46 H (7.35-7.45) ABG Total CO2 27.4 (22-28) mmol/L ABG O2 Saturation 98.4 H (95-98) % ABG O2 Content (15-23) ML/dL ABG Base Excess 2.5 (-2.0-3.0) mmol/L ABG Hemoglobin (11.7-17.4) g/dL ABG Carboxyhemoglobin (0.5-1.5) % POC ABG HHb (Measured) (0.0-5.0) % ABG Methemoglobin (0.0-3.0) % ABG O2 Capacity (16-24) mL/dL Bridger Test Yes ABG Potassium 3.3 L (3.6-5.2) mmol/L A-a O2 Difference 568.0 mm/Hg Hgb O2 Saturation (95.0-98.0) % Sodium 135.0 135 (132-148) mmol/L Chloride 103.0 100 (98-107) mmol/L Glucose 294 H (65-105) mg/dL Lactate 1.4 (0.7-2.1) mmol/L Vent Mode A/c Mechanical Rate 18 FiO2 100.0 % Tidal Volume 450 PEEP 5 Potassium 3.9 (3.6-5.0) MMOL/L Carbon Dioxide 22 (22-30) mmol/L Anion Gap 17 (10-20) BUN 10 (7-17) mg/dl Creatinine 0.6 L (0.7-1.2) mg/dl Est GFR ( Amer) > 60 Est GFR (Non-Af Amer) > 60 POC Glucose (mg/dL) (65-110) mg/dL Random Glucose 277 H (65-105) mg/dL Calcium 8.5 (8.4-10.2) mg/dL Phosphorus 4.6 H (2.5-4.5) mg/dl Magnesium 1.9 (1.6-2.3) MG/DL Total Bilirubin 0.3 (0.2-1.3) mg/dl AST 107 H D (14-36) U/L ALT 75 H D (9-52) U/L Alkaline Phosphatase 104 (38-126) U/L Troponin I < 0.0120 (0.00-0.120) ng/mL Total Protein 6.6 (6.3-8.2) G/DL Albumin 3.3 L (3.5-5.0) g/dL Globulin 3.4 (2.2-3.9) gm/dL Albumin/Globulin Ratio 1.0 (1.0-2.1) Procalcitonin (0.19-0.49) NG/ML Free T4 (0.78-2.19) ng/dL Arterial Blood Potassium 3.3 L (3.6-5.2) mmol/L Valproic Acid (50.0-100.0) ug/mL Cold Agglutinins (NEGATIVE) 08/04/18 08/04/18 08/03/18 Range/Units 00:30 00:20 21:25 WBC (4.8-10.8) K/uL RBC (3.80-5.20) Mil/uL Hgb (12.0-16.0) g/dL Hct (34.0-47.0) % MCV (81.0-99.0) fl MCH (27.0-31.0) pg MCHC (33.0-37.0) g/dL RDW (11.5-14.5) % Plt Count (130-400) K/uL PT 12.2 (9.8-13.1) Seconds INR 1.1 pCO2 (35-45) mm/Hg pO2 (80-100) mm/Hg HCO3 (21-28) mmol/L ABG pH (7.35-7.45) ABG Total CO2 (22-28) mmol/L ABG O2 Saturation (95-98) % ABG O2 Content (15-23) ML/dL ABG Base Excess (-2.0-3.0) mmol/L ABG Hemoglobin (11.7-17.4) g/dL ABG Carboxyhemoglobin (0.5-1.5) % POC ABG HHb (Measured) (0.0-5.0) % ABG Methemoglobin (0.0-3.0) % ABG O2 Capacity (16-24) mL/dL Bridger Test ABG Potassium (3.6-5.2) mmol/L A-a O2 Difference mm/Hg Hgb O2 Saturation (95.0-98.0) % Sodium (132-148) mmol/L Chloride (98-107) mmol/L Glucose (65-105) mg/dL Lactate (0.7-2.1) mmol/L Vent Mode Mechanical Rate FiO2 % Tidal Volume PEEP Potassium (3.6-5.0) MMOL/L Carbon Dioxide (22-30) mmol/L Anion Gap (10-20) BUN (7-17) mg/dl Creatinine (0.7-1.2) mg/dl Est GFR ( Amer) Est GFR (Non-Af Amer) POC Glucose (mg/dL) 310 H 194 H (65-110) mg/dL Random Glucose (65-105) mg/dL Calcium (8.4-10.2) mg/dL Phosphorus (2.5-4.5) mg/dl Magnesium (1.6-2.3) MG/DL Total Bilirubin (0.2-1.3) mg/dl AST (14-36) U/L ALT (9-52) U/L Alkaline Phosphatase (38-126) U/L Troponin I (0.00-0.120) ng/mL Total Protein (6.3-8.2) G/DL Albumin (3.5-5.0) g/dL Globulin (2.2-3.9) gm/dL Albumin/Globulin Ratio (1.0-2.1) Procalcitonin (0.19-0.49) NG/ML Free T4 (0.78-2.19) ng/dL Arterial Blood Potassium (3.6-5.2) mmol/L Valproic Acid (50.0-100.0) ug/mL Cold Agglutinins (NEGATIVE) 08/03/18 08/03/18 08/03/18 Range/Units 15:56 12:24 04:25 WBC (4.8-10.8) K/uL RBC (3.80-5.20) Mil/uL Hgb (12.0-16.0) g/dL Hct (34.0-47.0) % MCV (81.0-99.0) fl MCH (27.0-31.0) pg MCHC (33.0-37.0) g/dL RDW (11.5-14.5) % Plt Count (130-400) K/uL PT (9.8-13.1) Seconds INR pCO2 (35-45) mm/Hg pO2 (80-100) mm/Hg HCO3 (21-28) mmol/L ABG pH (7.35-7.45) ABG Total CO2 (22-28) mmol/L ABG O2 Saturation (95-98) % ABG O2 Content (15-23) ML/dL ABG Base Excess (-2.0-3.0) mmol/L ABG Hemoglobin (11.7-17.4) g/dL ABG Carboxyhemoglobin (0.5-1.5) % POC ABG HHb (Measured) (0.0-5.0) % ABG Methemoglobin (0.0-3.0) % ABG O2 Capacity (16-24) mL/dL Bridger Test ABG Potassium (3.6-5.2) mmol/L A-a O2 Difference mm/Hg Hgb O2 Saturation (95.0-98.0) % Sodium (132-148) mmol/L Chloride (98-107) mmol/L Glucose (65-105) mg/dL Lactate (0.7-2.1) mmol/L Vent Mode Mechanical Rate FiO2 % Tidal Volume PEEP Potassium (3.6-5.0) MMOL/L Carbon Dioxide (22-30) mmol/L Anion Gap (10-20) BUN (7-17) mg/dl Creatinine (0.7-1.2) mg/dl Est GFR ( Amer) Est GFR (Non-Af Amer) POC Glucose (mg/dL) 158 H 235 H (65-110) mg/dL Random Glucose (65-105) mg/dL Calcium (8.4-10.2) mg/dL Phosphorus (2.5-4.5) mg/dl Magnesium (1.6-2.3) MG/DL Total Bilirubin (0.2-1.3) mg/dl AST (14-36) U/L ALT (9-52) U/L Alkaline Phosphatase (38-126) U/L Troponin I (0.00-0.120) ng/mL Total Protein (6.3-8.2) G/DL Albumin (3.5-5.0) g/dL Globulin (2.2-3.9) gm/dL Albumin/Globulin Ratio (1.0-2.1) Procalcitonin (0.19-0.49) NG/ML Free T4 (0.78-2.19) ng/dL Arterial Blood Potassium (3.6-5.2) mmol/L Valproic Acid (50.0-100.0) ug/mL Cold Agglutinins Negative (NEGATIVE) 08/03/18 08/02/18 Range/Units 04:25 22:23 WBC (4.8-10.8) K/uL RBC (3.80-5.20) Mil/uL Hgb (12.0-16.0) g/dL Hct (34.0-47.0) % MCV (81.0-99.0) fl MCH (27.0-31.0) pg MCHC (33.0-37.0) g/dL RDW (11.5-14.5) % Plt Count (130-400) K/uL PT (9.8-13.1) Seconds INR pCO2 41 (35-45) mm/Hg pO2 200 H (80-100) mm/Hg HCO3 27.6 (21-28) mmol/L ABG pH 7.44 (7.35-7.45) ABG Total CO2 29.1 H (22-28) mmol/L ABG O2 Saturation 98.7 H (95-98) % ABG O2 Content (15-23) ML/dL ABG Base Excess 3.3 H (-2.0-3.0) mmol/L ABG Hemoglobin (11.7-17.4) g/dL ABG Carboxyhemoglobin (0.5-1.5) % POC ABG HHb (Measured) (0.0-5.0) % ABG Methemoglobin (0.0-3.0) % ABG O2 Capacity (16-24) mL/dL Bridger Test Yes ABG Potassium 4.2 (3.6-5.2) mmol/L A-a O2 Difference 462.0 mm/Hg Hgb O2 Saturation (95.0-98.0) % Sodium 134.0 (132-148) mmol/L Chloride 106.0 (98-107) mmol/L Glucose 241 H (65-105) mg/dL Lactate 0.8 (0.7-2.1) mmol/L Vent Mode A/c Mechanical Rate 14 FiO2 100.0 % Tidal Volume 450 PEEP 5 Potassium (3.6-5.0) MMOL/L Carbon Dioxide (22-30) mmol/L Anion Gap (10-20) BUN (7-17) mg/dl Creatinine (0.7-1.2) mg/dl Est GFR ( Amer) Est GFR (Non-Af Amer) POC Glucose (mg/dL) (65-110) mg/dL Random Glucose (65-105) mg/dL Calcium (8.4-10.2) mg/dL Phosphorus (2.5-4.5) mg/dl Magnesium (1.6-2.3) MG/DL Total Bilirubin (0.2-1.3) mg/dl AST (14-36) U/L ALT (9-52) U/L Alkaline Phosphatase (38-126) U/L Troponin I (0.00-0.120) ng/mL Total Protein (6.3-8.2) G/DL Albumin (3.5-5.0) g/dL Globulin (2.2-3.9) gm/dL Albumin/Globulin Ratio (1.0-2.1) Procalcitonin 0.43 (0.19-0.49) NG/ML Free T4 (0.78-2.19) ng/dL Arterial Blood Potassium 4.2 (3.6-5.2) mmol/L Valproic Acid (50.0-100.0) ug/mL Cold Agglutinins (NEGATIVE) Laboratory Results - last 24 hr 08/02/18 08/03/18 08/03/18 22:23 04:25 04:25 WBC RBC Hgb Hct MCV MCH MCHC RDW Plt Count PT INR pCO2 41 pO2 200 H HCO3 27.6 ABG pH 7.44 ABG Total CO2 29.1 H ABG O2 Saturation 98.7 H ABG O2 Content ABG Base Excess 3.3 H ABG Hemoglobin ABG Carboxyhemoglobin POC ABG HHb (Measured) ABG Methemoglobin ABG O2 Capacity Bridger Test Yes ABG Potassium 4.2 A-a O2 Difference 462.0 Hgb O2 Saturation Sodium 134.0 Chloride 106.0 Glucose 241 H Lactate 0.8 Vent Mode A/c Mechanical Rate 14 FiO2 100.0 Tidal Volume 450 PEEP 5 Potassium Carbon Dioxide Anion Gap BUN Creatinine Est GFR ( Amer) Est GFR (Non-Af Amer) POC Glucose (mg/dL) Random Glucose Calcium Phosphorus Magnesium Total Bilirubin AST ALT Alkaline Phosphatase Troponin I Total Protein Albumin Globulin Albumin/Globulin Ratio Procalcitonin 0.43 Free T4 Arterial Blood Potassium 4.2 Valproic Acid Cold Agglutinins Negative 08/03/18 08/03/18 08/03/18 12:24 15:56 21:25 WBC RBC Hgb Hct MCV MCH MCHC RDW Plt Count PT INR pCO2 pO2 HCO3 ABG pH ABG Total CO2 ABG O2 Saturation ABG O2 Content ABG Base Excess ABG Hemoglobin ABG Carboxyhemoglobin POC ABG HHb (Measured) ABG Methemoglobin ABG O2 Capacity Bridger Test ABG Potassium A-a O2 Difference Hgb O2 Saturation Sodium Chloride Glucose Lactate Vent Mode Mechanical Rate FiO2 Tidal Volume PEEP Potassium Carbon Dioxide Anion Gap BUN Creatinine Est GFR ( Amer) Est GFR (Non-Af Amer) POC Glucose (mg/dL) 235 H 158 H 194 H Random Glucose Calcium Phosphorus Magnesium Total Bilirubin AST ALT Alkaline Phosphatase Troponin I Total Protein Albumin Globulin Albumin/Globulin Ratio Procalcitonin Free T4 Arterial Blood Potassium Valproic Acid Cold Agglutinins 08/04/18 08/04/18 08/04/18 00:20 00:30 00:30 WBC RBC Hgb Hct MCV MCH MCHC RDW Plt Count PT 12.2 INR 1.1 pCO2 pO2 HCO3 ABG pH ABG Total CO2 ABG O2 Saturation ABG O2 Content ABG Base Excess ABG Hemoglobin ABG Carboxyhemoglobin POC ABG HHb (Measured) ABG Methemoglobin ABG O2 Capacity Bridger Test ABG Potassium A-a O2 Difference Hgb O2 Saturation Sodium 135 Chloride 100 Glucose Lactate Vent Mode Mechanical Rate FiO2 Tidal Volume PEEP Potassium 3.9 Carbon Dioxide 22 Anion Gap 17 BUN 10 Creatinine 0.6 L Est GFR ( Amer) > 60 Est GFR (Non-Af Amer) > 60 POC Glucose (mg/dL) 310 H Random Glucose 277 H Calcium 8.5 Phosphorus 4.6 H Magnesium 1.9 Total Bilirubin 0.3 AST 107 H D ALT 75 H D Alkaline Phosphatase 104 Troponin I < 0.0120 Total Protein 6.6 Albumin 3.3 L Globulin 3.4 Albumin/Globulin Ratio 1.0 Procalcitonin Free T4 Arterial Blood Potassium Valproic Acid Cold Agglutinins 08/04/18 08/04/18 08/04/18 01:20 04:45 04:45 WBC 13.2 H RBC 3.70 L Hgb 9.6 L Hct 29.2 L MCV 79.0 L MCH 25.9 L MCHC 32.8 L RDW 15.3 H Plt Count 272 PT INR pCO2 37 pO2 99 HCO3 26.9 ABG pH 7.46 H ABG Total CO2 27.4 ABG O2 Saturation 98.4 H ABG O2 Content ABG Base Excess 2.5 ABG Hemoglobin ABG Carboxyhemoglobin POC ABG HHb (Measured) ABG Methemoglobin ABG O2 Capacity Bridger Test Yes ABG Potassium 3.3 L A-a O2 Difference 568.0 Hgb O2 Saturation Sodium 135.0 136 Chloride 103.0 103 Glucose 294 H Lactate 1.4 Vent Mode A/c Mechanical Rate 18 FiO2 100.0 Tidal Volume 450 PEEP 5 Potassium 4.2 Carbon Dioxide 26 Anion Gap 11 BUN 10 Creatinine 0.4 L Est GFR ( Amer) > 60 Est GFR (Non-Af Amer) > 60 POC Glucose (mg/dL) Random Glucose 237 H Calcium 8.2 L Phosphorus Magnesium Total Bilirubin AST ALT Alkaline Phosphatase Troponin I Total Protein Albumin Globulin Albumin/Globulin Ratio Procalcitonin Free T4 Arterial Blood Potassium 3.3 L Valproic Acid Cold Agglutinins 08/04/18 08/04/18 08/04/18 04:45 04:45 04:56 WBC RBC Hgb Hct MCV MCH MCHC RDW Plt Count PT INR pCO2 pO2 HCO3 ABG pH ABG Total CO2 ABG O2 Saturation ABG O2 Content ABG Base Excess ABG Hemoglobin ABG Carboxyhemoglobin POC ABG HHb (Measured) ABG Methemoglobin ABG O2 Capacity Bridger Test ABG Potassium A-a O2 Difference Hgb O2 Saturation Sodium Chloride Glucose Lactate Vent Mode Mechanical Rate FiO2 Tidal Volume PEEP Potassium Carbon Dioxide Anion Gap BUN Creatinine Est GFR ( Amer) Est GFR (Non-Af Amer) POC Glucose (mg/dL) 220 H Random Glucose Calcium Phosphorus Magnesium Total Bilirubin AST ALT Alkaline Phosphatase Troponin I Total Protein Albumin Globulin Albumin/Globulin Ratio Procalcitonin Free T4 1.54 Arterial Blood Potassium Valproic Acid 50.1 Cold Agglutinins 08/04/18 08/04/18 08:33 09:05 WBC RBC Hgb Hct MCV MCH MCHC RDW Plt Count PT INR pCO2 39 pO2 104 H HCO3 27.2 ABG pH 7.45 ABG Total CO2 28.3 H ABG O2 Saturation 98.9 H ABG O2 Content 12.5 L ABG Base Excess 2.9 ABG Hemoglobin 9.0 L ABG Carboxyhemoglobin 0.9 POC ABG HHb (Measured) 1.1 ABG Methemoglobin 0.4 ABG O2 Capacity 12.6 L Bridger Test Yes ABG Potassium A-a O2 Difference 275.0 Hgb O2 Saturation 97.6 Sodium Chloride Glucose Lactate Vent Mode Prvc/ac Mechanical Rate 14 FiO2 60.0 Tidal Volume 450 PEEP 5 Potassium Carbon Dioxide Anion Gap BUN Creatinine Est GFR ( Amer) Est GFR (Non-Af Amer) POC Glucose (mg/dL) Random Glucose Calcium Phosphorus Magnesium Total Bilirubin AST ALT Alkaline Phosphatase Troponin I 0.0200 Total Protein Albumin Globulin Albumin/Globulin Ratio Procalcitonin Free T4 Arterial Blood Potassium Valproic Acid Cold Agglutinins EKG/Cardiology Studies: Cardiology / EKG Studies 08/04/18 EKG [ELECTROCARDIOGRAM] Stat Comment: Mode Of Transportation: Reason For Exam: code blue Critical Care Progress Note - Nutrition Nutrition: Nutrition Category Date Time Status NPO Diet [DIET] Diets 08/04/18 Breakfast Active
--- NOTE | 2018-08-04 11:14 | CP.PCM.PN ---
Addendum entered and electronically signed by Kameron Beckwith MD 08/04/18 17:33: Patient was seen and examined bedside . All chart and clinical data reviewed. Case discussed with resident. Agree with assessment and plan. 62 y/o female with PMH schizophrenia, HTN, DM brought from the longterm for evaluation of fall. In ER CT head showed no acute pathology She was found to have a cough with no clear infiltrate in the CXR with WBC 17 K , lactic acidosis, bandemia Repeat CXR after hydration showed Interval patchy atelectasis or infiltrate right base and left perihilar/medial basilar distributions. Stable prominent cardiac silhouette. No definite pulmonary vascular congestion. Patient was admitted for sepsis and multifocal pneumonia and was started on vanco , Zosyn and Zithromax IV Overnight events reviewed. Code blue was called by nurse for finding patient unresponsive with no pulse. As per medical records patient did have a BP re ading of 201/85 just 1 minute prior the code was called . As per staff patient was bradycardic on monitor with HR 30 and no pulse CPR initiated , patient intubated and transferred to ICU. She received 3 amp Epi with return of ROSC Unclear if patient had a cardiac or a respiratory arrest At present in ICU setting intubated on MV PRVC / AC mode with current settings 14/450/5/60% ABG 39/104/27/7.4 Off sedation at present and keeping eyes open but not following any commands CXr showing bilateral vascular congestion physical exam significant for rales on exam and Upper and LE edema Will hold off any sedation at present Stat diuresing with lasix IV monitoring output, renal function and BP call pulmonary consult with Dr. Sky Continue IV antibiotics and vent mangament Will try to wean off vent as soon as possible Patient likely did not have a cardiac event ( BP was high ) and trop are all negative . will order Echo Dx Sepsis POA Multifocal pneumonia Suspected Pulseless electrical activity ( PEA ?) Hypertension Anasarca and vascular congestion DM type II Schizophrenia Anemia- unclear etiology Addendum entered and electronically signed by Radha Kim MD 08/04/18 17:11: Pt was edematous in AM. Given 1x dose of Lasix 40mg IVP. Good urinary output post lasix. Seen post lasix, BP stable, and more awake. Will give an additional dose of 40mg PO IVP Lasix to be administered later today. Will cont to wean off vent support as tolerated. Sedation has been off. Original Note: Subjective - Date & Time of Evaluation Date of Evaluation: 08/04/18 Time of Evaluation: 08:30 - Subjective Subjective: Overnight code blue was called when patient was found unresponsive. Given epi x 3 before pulse was achieved. Patient was intubated and transferred to ICU for further management. Pt is seen and examined by bedside in ICU this AM, daughter by bedside. Pt currently intubated, off sedation this AM (propofol weaned off this AM). Patient responds to pain by withdrawing, sedated and intubated. Vent A/C, PEEP 5, FIO2 60 Objective - Vital Signs/Intake and Output Vital Signs (last 24 hours): Temp Pulse Resp BP Pulse Ox 98.7 F 78 14 148/67 98 08/04/18 08:00 08/04/18 09:59 08/04/18 08:00 08/04/18 09:59 08/04/18 08:00 Intake and Output: 08/04/18 08/04/18 06:59 18:59 Intake Total 5500 Output Total 1700 Balance 3800 - Medications Medications: Current Medications Acetaminophen (Tylenol 325mg Tab) 650 mg PO Q6 PRN PRN Reason: Fever >100.4 F Last Admin: 08/03/18 12:37 Dose: 650 mg Albuterol Sulfate (Albuterol 0.083% Inhal Veronica (2.5 Mg/3 Ml) Ud) 2.5 mg INH RQ6 [facility] Last Admin: 08/04/18 07:32 Dose: 2.5 mg Amlodipine Besylate (Norvasc) 10 mg PO DAILY [facility] Last Admin: 08/04/18 09:59 Dose: 10 mg Aspirin (Ecotrin) 325 mg PO DAILY [facility] Last Admin: 08/04/18 09:59 Dose: 325 mg Atorvastatin Calcium (Lipitor) 10 mg PO HS [facility] Last Admin: 08/03/18 21:31 Dose: 10 mg Carvedilol (Coreg) 25 mg PO BID [facility] Last Admin: 08/04/18 09:30 Dose: 25 mg Dextrose (Dextrose 50% Inj) 0 ml IV STAT PRN; Protocol PRN Reason: Hypoglycemia Protocol Dextrose (Glutose 15) 0 gm PO ONCE PRN; Protocol PRN Reason: Hypoglycemia Protocol Divalproex Sodium (Depakote Er(Once Daily)) 1,250 mg PO HS [facility] Last Admin: 08/03/18 21:56 Dose: 1,250 mg Enoxaparin Sodium (Lovenox) 40 mg SC DAILY [facility]; Protocol Last Admin: 08/04/18 09:57 Dose: 40 mg Escitalopram Oxalate (Lexapro) 10 mg PO HS [facility] Last Admin: 08/03/18 21:31 Dose: 10 mg Fluticasone Propionate (Flonase) 2 spr ANIKA DAILY [facility] Last Admin: 08/04/18 09:57 Dose: Not Given Glucagon (Glucagen Diagnostic Kit) 0 mg IM STAT PRN; Protocol PRN Reason: Hypoglycemia Protocol Home Med (Acyclovir/Hydrocortisone [Xerese 5%-1% Cream]) 1 appl TOP PRN PRN PRN Reason: Itching / Pruritus Home Med (Clozapine [Fazaclo]) 200 mg PO HS [facility] Home Med (Colesevelam Hcl [Welchol]) 3.75 gm PO PRN PRN PRN Reason: Serum glucose Azithromycin 500 mg/ Sodium (Chloride) 250 mls @ 250 mls/hr IVPB DAILY [facility]; Protocol Last Admin: 08/04/18 10:00 Dose: 250 mls/hr Vancomycin HCl 1 gm/ Sodium (Chloride) 250 mls @ 250 mls/hr IVPB Q12H [facility]; Protocol Last Admin: 08/04/18 11:04 Dose: 250 mls/hr Piperacillin Sod/Tazobactam (Sod 3.375 gm/ Sodium Chloride) 100 mls @ 100 mls/hr IVPB Q8 [facility]; Protocol Last Admin: 08/04/18 10:01 Dose: 100 mls/hr Propofol (Diprivan) 1,000 mg in 100 mls @ 2.558 mls/hr IV .Q24H [facility]; Protocol Stop: 08/05/18 00:35 Last Titration: 08/04/18 05:05 Dose: 0 mcg/kg/min, 0 mls/hr Sodium Chloride (Sodium Chloride 0.9%) 1,000 mls @ 100 mls/hr IV .Q10H [facility] Stop: 08/05/18 01:15 Last Admin: 08/04/18 01:36 Dose: 100 mls/hr Ibuprofen (Motrin Tab) 600 mg PO Q6 PRN PRN Reason: Fever >100.4 F Insulin Detemir (Levemir) 15 units SC [facility] Last Admin: 08/03/18 21:32 Dose: 15 u Insulin Human Lispro (Humalog) 0 units SC [facility]; Protocol Last Admin: 08/04/18 06:29 Dose: 2 units Levothyroxine Sodium (Synthroid) 50 mcg PO DAILY@0630 [facility] Last Admin: 08/04/18 05:50 Dose: Not Given Losartan Potassium (Cozaar) 50 mg PO DAILY [facility] Last Admin: 08/04/18 09:31 Dose: 50 mg Multivitamins/Minerals (Therapeutic-M Tab) 1 tab PO DAILY [facility] Last Admin: 08/04/18 10:29 Dose: 1 tab Pantoprazole Sodium (Protonix Ec Tab) 20 mg PO DAILY [facility] Last Admin: 08/04/18 09:59 Dose: 20 mg Sitagliptin Phosphate (Januvia) 100 mg PO [facility] - Labs Labs: 08/04/18 04:45 08/04/18 04:45 PT 12.2 Seconds (9.8-13.1) 08/04/18 00:30 INR 1.1 08/04/18 00:30 APTT 31.5 Seconds (25.6-37.1) 08/02/18 22:20 - Constitutional Appears: No Acute Distress, Other (intubted, sedated ) - Head Exam Head Exam: NORMAL INSPECTION - ENT Exam ENT Exam: Mucous Membranes Moist - Respiratory Exam Respiratory Exam: Rhonchi (in the lower lobes b/l ), NORMAL BREATHING PATTERN. absent: Rales Additional comments: course breathing sounds - Cardiovascular Exam Cardiovascular Exam: REGULAR RHYTHM, +S1, +S2 - GI/Abdominal Exam GI & Abdominal Exam: Soft, Normal Bowel Sounds. absent: Tenderness - Neurological Exam Neurological Exam: Alert, Awake - Skin Skin Exam: Normal Color Assessment and Plan - Assessment and Plan (Free Text) Assessment: Assessment/Plan: 62 YO female from a longterm, with hx of DM II, Schizophrenia and HTN is admitted for sepsis and pneumonia. Labs were sig for Leukocytosis with bandemia. Overnight pt was found to be bradycardiac and was found unresponsive. Beau blue was called, compressed done and pulse was achieved after 3 round of epi. pt was intubated and transferred to ICU. Wean off sedation this morning and FIO2 decreased. Cardio/Respiratory Failure -Code blue called overnight; likely 2/2 to hypoxia -s/p intubation and sedation -will wean off sedation, and try wean off intubation as tolerated -ekg and trops x 2 neg -XR no change in layering moderate right pleural effusion, stable position of tubes Pneumonia -CXR sig for Interval patchy atelectasis or infiltrate right base and left perihilar/medial basilar distributions -ID on board; cont abx: azithro, vanco and zosyn -cultures pending; bcx, ucx and sputum (ux and bx no growth thus far) -legionella pending -vanc trough today Sepsis -improving -leukocytosis with bandemia -likely 2/2 to pneumonia -c/w IV abx -ID on board Hypothyrodism -chronic, uncontrolled -levo decreased to 50mcg daily DM -chronic -Metformin on hold -Sliding scale prn, c/w home meds -hypoglycemia protocol HTN -chronic -c/w home meds Schizopherenia -chronic -home meds restarted -depakote levels normal DVT -c/w lovenox sc
--- NOTE | 2018-08-04 16:01 | CARD ---
APPROVED REPORT Date of service: 08/04/2018 EKG Measurement Heart [id number] <Conclusion> Normal sinus rhythm Normal ECG
--- NOTE | 2018-08-04 18:48 | CARD ---
APPROVED REPORT Date of service: 08/04/2018 EXAM: Two-dimensional and M-mode echocardiogram with Doppler and color Doppler. Other Information Quality : GoodRhythm : NSR INDICATION Post Cardiac Arrest 2D DIMENSIONS IVSd0.67 (0.7-1.1cm)LVDd4.97 (3.9-5.9cm) LVOT Diameter1.93 (1.8-2.4cm)PWd0.93 (0.7-1.1cm) IVSs0.79 (0.8-1.2cm)LVDs3.85 (2.5-4.0cm) FS (%) 22.4 %PWs1.47 (0.8-1.2cm) M-Mode DIMENSIONS Left Atrium (MM)3.44 (2.5-4.0cm)IVSd1.00 (0.7-1.1cm) Aortic Root2.94 (2.2-3.7cm)LVDd5.65 (4.0-5.6cm) Aortic Cusp Exc.1.82 (1.5-2.0cm)PWd1.26 (0.7-1.1cm) IVSs1.47 cmFS (%) 39 % LVDs3.44 (2.0-3.8cm)PWs1.74 cm Aortic Valve AoV Peak Ftfibgli282.2cm/sAoV VTI38.9cmAO Peak GR.14mmHg LVOT Peak Eqzczwse874.6cm/sLVOT VTI24.46cmAO Mean GR.8mmHg STEPHEN (VMAX)0.52np8BKK (VTI)0.94cm2 Mitral Valve MV E Zfropota294.8cm/sMV DECEL [id number] A Fkyjjyyu71.8cm/s MV ORF17zhX/A ratio1.1MVA (PHT)3.74cm2 TDI Lateral E' Peak V11.57cm/sMedial E' Peak V9.45cm/sE/Lateral E'8.7 E/Medial E'10.7 Tricuspid Valve TR Peak Lmabnkhe489wc/sRAP GESHMWCQ31wyLkVM Peak Gr.38mmHg DRNE12icRz LEFT VENTRICLE The left ventricle is normal size. There is normal left ventricular wall thickness. The left ventricular systolic function is normal. The estimated ejection fraction is 55-60% No regional wall motion abnormalities noted.. The left ventricular diastolic function is normal. No left ventricle thrombus noted on this study. There is no ventricular septal defect visualized. There is no left ventricular aneurysm. There is no mass noted in the left ventricle. RIGHT VENTRICLE The right ventricle is normal size. There is normal right ventricular wall thickness. The right ventricular systolic function is normal. ATRIA The left atrium is mildly dilated. The right atrium size is normal. The interatrial septum is intact with no evidence for an atrial septal defect. AORTIC VALVE The aortic valve is normal in structure. No aortic regurgitation is present. There is no aortic valvular stenosis. There is no aortic valvular vegetation. MITRAL VALVE The mitral valve is normal in structure. There is no evidence of mitral valve prolapse. There is no mitral valve stenosis. There is trace mitral valve regurgitation noted. TRICUSPID VALVE The tricuspid valve is normal in structure. There is mild tricuspid valve regurgitation noted. RVSP is calculated at 46 mm Hg. There is no tricuspid valve prolapse or vegetation. There is no tricuspid valve stenosis. PULMONIC VALVE The pulmonary valve is normal in structure. There is no pulmonic valvular regurgitation. There is no pulmonic valvular stenosis. GREAT VESSELS The aortic root is normal in size. The ascending aorta is normal in size. The pulmonary artery is normal. The IVC is normal in size and collapses >50% with inspiration. PERICARDIAL EFFUSION There is no pericardial effusion. There is no pleural effusion. <Conclusion> The estimated ejection fraction is 55-60% The left ventricular diastolic function is normal. The left atrium is mildly dilated. There is trace mitral valve regurgitation noted. There is mild tricuspid valve regurgitation noted. RVSP is calculated at 46 mm Hg.
[2018-08-04] MEDS: Insulin Detemir 100 Units/ml Inj SC SCH (21:41)
[2018-08-04] MEDS ORDERED: Sodium Chloride 3% for Inhalation 4 ML VIAL.NEB IH PRN (22:19)
[2018-08-05] MEDS: Albuterol 0.083% Inhal Sol (2.5 mg/3 mL) UD INH SCH ×4 (01:10→19:08)
[2018-08-05] MEDS: Piperacillin/Tazobact 3.375 GM in Sodium Chloride 0.9% 100 ML IVPB SCH ×3 (01:16→17:50)
[2018-08-05 04:51] LABS: ABG ALLEN TEST YES; ARTERIAL BLOOD GAS HEMOGLOBIN 9.6 g/dL (11.7-17.4); ARTERIAL BLOOD GAS O2 CAPACITY 13.4 mL/dL (16-24)
[2018-08-05] MEDS: Levothyroxine 50 MCG TAB PO SCH (05:36)
[2018-08-05 05:42] LABS: BASO # 0.2 K/uL (0.0-0.2); BASO % 1.4 % (0.0-2.0); EOS % 0.2 % (0.0-4.0); HEMOGLOBIN 9.5 g/dL (12.0-16.0); LYMPH % 12.7 % (20.0-40.0); MEAN CELL VOLUME 78.8 fl (81.0-99.0); MEAN CORPUSCULAR HEMOGLOBIN 26.1 pg (27.0-31.0); MEAN CORPUSCULAR HGB CONC 33.1 g/dL (33.0-37.0); MEAN PLATELET VOLUME 8.5 fl (7.2-11.7); MONO # 1.4 K/uL (0.0-0.8); MONO % 8.6 % (0.0-10.0); NEUT # 12.2 K/uL (1.8-7.0); NEUT % 77.1 % (50.0-75.0); NRBC % 0.2 % (0.0-0.0); RBC 3.64 Mil/uL (3.80-5.20); RED CELL DISTRIBUTION WIDTH 15.6 % (11.5-14.5); WHITE BLOOD COUNT 15.8 K/uL (4.8-10.8)
[2018-08-05 05:51] LABS: BLOOD UREA NITROGEN 8 mg/dl (7-17); GFR NON-AFRICAN AMERICAN > 60
[2018-08-05 05:52] LABS: ALB/GLOB RATIO 0.9 (1.0-2.1); ALBUMIN 3.1 g/dL (3.5-5.0); ALT/SGPT 99 U/L (9-52); AST/SGOT 103 U/L (14-36); CALCIUM 8.8 mg/dL (8.4-10.2)
[2018-08-05] MEDS ORDERED: Potassium Chloride 20 mEq 100 ML IVPB SCH (08:00)
[2018-08-05] MEDS: Aspirin 325 mg EC Tablets PO SCH (09:30)
[2018-08-05] MEDS: Insulin Lispro (humaLOG) 100 Units/ml Inj SC SCH ×4 (09:32→21:12)
[2018-08-05] MEDS: Enoxaparin 40 mg Syringe SC SCH (09:32)
[2018-08-05] MEDS: Pantoprazole 20 mg EC Tab PO SCH (09:33)
[2018-08-05] MEDS: Multivitamin With Minerals Tab PO SCH (09:33)
[2018-08-05] MEDS: Azithromycin 500 MG in Sodium Chloride 0.9% 250 ML IVPB SCH (09:35)
--- NOTE | 2018-08-05 10:15 | CP.CCUPN ---
Addendum entered and electronically signed by Renetta Kunz MD 08/05/18 16:20: Spoke with RN who stated that Dr. Keller noted focal seizures on EEG. Keppra 100mg BID started and pt given 4 mg IV Ativan. Original Note: <Renetta Kunz - Last Filed: 08/05/18 11:09> CCU Subjective - Physician Review Subjective (Free Text): Pt is a 62 y/o female residing in a shelter w/ pmhx of HTN, IDDM, Hypothyroidism, GERD, Schitzophrenia brought to [facility] ED s/p fall admitted for Sepsis due to PNU (HCAP vs Atypical PNU), with elevated lactic acid levels and receiving IV antibiotics. S/P Code Blue in Tele floors and transferred to ICU on 08/04. On Mechanical ventilation. Minimal improvement in mental status. Pt was seen and examined this morning. On Vent. Opens eyes to voice. Non verbal. Withdraws from pain. Does not follow verbal commands. GCS 8. CCU Objective - Vital Signs / Intake & Output Vital Signs (Last 4 hours): Vital Signs Temp Pulse Resp BP Pulse Ox 08/05/18 09:33 71 146/65 08/05/18 09:30 76 146/65 08/05/18 09:29 73 146/65 08/05/18 08:00 97.8 F 84 14 146/55 L 94 L Intake and Output (Last 8hrs): Intake & Output 08/04/18 08/05/18 08/05/18 22:59 06:59 14:59 Intake Total 790 930 Output Total 3325 655 Balance -2535 275 Weight 196 lb 9.6 oz Intake: IV 600 400 Intake, Piggyback 100 Tube Feeding 90 230 Free Water Flush 300 Output: Urine 3325 655 Urethral (Ray) 3325 655 Other: # Bowel Movements 0 - Physical Exam Head: Positive for: Normocephalic Pupils: Positive for: Sluggish Conjunctiva: Positive for: Normal Ears: Positive for: Normal Mouth: Positive for: Moist Mucous Membranes (ETT tube in place, yellow secretions, OG tube) Nose (External): Positive for: Other Neck: Positive for: Normal Range of Motion Respiratory/Chest: Positive for: Good Air Exchange, Rhonchi. Negative for: Re spiratory Distress, Rales Cardiovascular: Positive for: Regular Rate and Rhythm. Negative for: Murmurs Abdomen: Positive for: Distention, Normal Bowel Sounds Upper Extremity: Positive for: Edema (trace pitting in upper extremities bl), NORMAL PULSES, Capillary Refill < 2s Lower Extremity: Positive for: NORMAL PULSES, Capillary Refill < 2 s. Negative for: Edema Neurological: Positive for: Other (Eyes open spotnaneously, non verbal, withdraws from pain) Skin: Positive for: Warm, Dry, Rashes Psychiatric: Positive for: Alert. Negative for: Oriented x 3, Agitated - Medications Active Medications: Active Medications Generic Name Dose Route Start Last Admin Trade Name Freq PRN Reason Stop Dose Admin Acetaminophen 650 mg 08/03/18 03:33 08/05/18 05:35 Tylenol 325mg Tab PO 650 mg Q6 PRN Administration Fever >100.4 F Albuterol Sulfate 2.5 mg 08/03/18 02:00 08/05/18 07:56 Albuterol 0.083% Inhal Veronica (2.5 Mg/3 Ml) Ud INH 2.5 mg RQ6 LESLIE Administration Amlodipine Besylate 10 mg 08/03/18 09:00 08/05/18 09:33 Norvasc PO 10 mg DAILY LESLIE Administration Aspirin 325 mg 08/03/18 09:00 08/05/18 09:30 Ecotrin PO 325 mg DAILY LESLIE Administration Atorvastatin Calcium 10 mg 08/03/18 22:00 08/04/18 21:42 Lipitor PO 10 mg HS LESLIE Administration Carvedilol 25 mg 08/03/18 09:00 08/05/18 09:29 Coreg PO 25 mg BID LESLIE Administration Dextrose 0 ml 08/03/18 03:35 Dextrose 50% Inj IV STAT PRN Hypoglycemia Protocol Protocol Dextrose 0 gm 08/03/18 03:35 Glutose 15 PO ONCE PRN Hypoglycemia Protocol Protocol Divalproex Sodium 1,250 mg 08/03/18 22:00 08/03/18 21:56 Depakote Er(Once Daily) PO 1,250 mg HS LESLIE Administration Enoxaparin Sodium 40 mg 08/03/18 09:00 08/05/18 09:32 Lovenox SC 40 mg DAILY LESLIE Administration Protocol Escitalopram Oxalate 10 mg 08/03/18 22:00 08/03/18 21:31 Lexapro PO 10 mg HS LESLIE Administration Fluticasone Propionate 2 spr 08/03/18 09:00 08/05/18 09:30 Flonase ANIKA Not Given DAILY LESLIE Glucagon 0 mg 08/03/18 03:35 Glucagen Diagnostic Kit IM STAT PRN Hypoglycemia Protocol Protocol Home Med 1 appl 08/03/18 01:25 Acyclovir/Hydrocortisone [Xerese 5%-1% Cream] TOP PRN PRN Itching / Pruritus Home Med 200 mg 08/03/18 22:00 Clozapine [Fazaclo] PO HS LESLIE Home Med 3.75 gm 08/03/18 01:25 Colesevelam Hcl [Welchol] PO PRN PRN Serum glucose Azithromycin 500 mg/ Sodium 250 mls @ 250 mls/hr 08/03/18 09:00 08/05/18 09:35 Chloride IVPB 250 mls/hr DAILY LESLIE Administration Protocol Vancomycin HCl 1 gm/ Sodium 250 mls @ 250 mls/hr 08/03/18 11:00 08/04/18 23:07 Chloride IVPB 250 mls/hr Q12H LESLIE Administration Protocol Piperacillin Sod/Tazobactam 100 mls @ 100 mls/hr 08/03/18 11:00 08/05/18 09:34 Sod 3.375 gm/ Sodium Chloride IVPB 100 mls/hr Q8 LESLIE Administration Protocol Potassium Chloride 100 mls @ 50 mls/hr 08/05/18 09:00 Potassium Chloride 20 Meq/100 Ml IVPB 08/05/18 11:59 Q2 LESLIE Ibuprofen 600 mg 08/03/18 13:30 Motrin Tab PO Q6 PRN Fever >100.4 F Insulin Detemir 15 units 08/03/18 22:00 08/04/18 21:41 Levemir SC 15 u HS LESLIE Administration Insulin Human Lispro 0 units 08/03/18 07:30 08/05/18 09:32 Humalog SC 2 units ACHS LESLIE Administration Protocol Levothyroxine Sodium 50 mcg 08/04/18 06:30 08/05/18 05:36 Synthroid PO 50 mcg DAILY@0630 LESLIE Administration Losartan Potassium 50 mg 08/03/18 09:00 08/05/18 09:30 Cozaar PO 50 mg DAILY LESLIE Administration Multivitamins/Minerals 1 tab 08/03/18 09:00 08/05/18 09:33 Therapeutic-M Tab PO 1 tab DAILY LESLIE Administration Pantoprazole Sodium 20 mg 08/03/18 09:00 08/05/18 09:33 Protonix Ec Tab PO 20 mg DAILY LESLIE Administration Sitagliptin Phosphate 100 mg 08/03/18 22:00 08/04/18 21:46 Januvia PO 100 mg HS LESLIE Administration - Patient Studies Lab Studies: Microbiology Studies 08/02/18 22:05 Blood Culture - Preliminary Blood-Venous NO GROWTH AFTER 48 HOURS 08/02/18 22:10 Blood Culture - Preliminary Blood-Venous NO GROWTH AFTER 48 HOURS 08/03/18 16:41 Blood Culture - Preliminary Blood NO GROWTH AFTER 24 HOURS 08/03/18 16:31 Blood Culture - Preliminary Blood NO GROWTH AFTER 24 HOURS 08/02/18 22:58 Urine Culture - Final Urine,Catheterized No Growth (<1,000 CFU/ML) Lab Studies 08/05/18 08/05/18 08/05/18 Range/Units 06:30 04:50 04:50 WBC 15.8 H (4.8-10.8) K/uL RBC 3.64 L (3.80-5.20) Mil/uL Hgb 9.5 L (12.0-16.0) g/dL Hct 28.7 L (34.0-47.0) % MCV 78.8 L (81.0-99.0) fl MCH 26.1 L (27.0-31.0) pg MCHC 33.1 (33.0-37.0) g/dL RDW 15.6 H (11.5-14.5) % Plt Count 346 (130-400) K/uL MPV 8.5 (7.2-11.7) fl Neut % (Auto) 77.1 H (50.0-75.0) % Lymph % (Auto) 12.7 L (20.0-40.0) % [place] % (Auto) 8.6 (0.0-10.0) % Eos % (Auto) 0.2 (0.0-4.0) % Baso % (Auto) 1.4 (0.0-2.0) % Neut # (Auto) 12.2 H (1.8-7.0) K/uL Lymph # (Auto) 2.0 (1.0-4.3) K/uL [place] # (Auto) 1.4 H (0.0-0.8) K/uL Eos # (Auto) 0.0 (0.0-0.7) K/uL Baso # (Auto) 0.2 (0.0-0.2) K/uL pCO2 (35-45) mm/Hg pO2 (80-100) mm/Hg HCO3 (21-28) mmol/L ABG pH (7.35-7.45) ABG Total CO2 (22-28) mmol/L ABG O2 Saturation (95-98) % ABG O2 Content (15-23) ML/dL ABG Base Excess (-2.0-3.0) mmol/L ABG Hemoglobin (11.7-17.4) g/dL ABG Carboxyhemoglobin (0.5-1.5) % POC ABG HHb (Measured) (0.0-5.0) % ABG Methemoglobin (0.0-3.0) % ABG O2 Capacity (16-24) mL/dL Bridger Test A-a O2 Difference mm/Hg Hgb O2 Saturation (95.0-98.0) % Vent Mode Mechanical Rate FiO2 % Tidal Volume PEEP Pressure Support Sodium 141 (132-148) mmol/l Potassium 3.2 L (3.6-5.0) MMOL/L Chloride 105 (98-107) mmol/L Carbon Dioxide 27 (22-30) mmol/L Anion Gap 12 (10-20) BUN 8 (7-17) mg/dl Creatinine 0.5 L (0.7-1.2) mg/dl Est GFR ( Amer) > 60 Est GFR (Non-Af Amer) > 60 POC Glucose (mg/dL) 211 H (65-110) mg/dL Random Glucose 230 H (65-105) mg/dL Calcium 8.8 (8.4-10.2) mg/dL Phosphorus 2.9 (2.5-4.5) mg/dl Magnesium 1.8 (1.6-2.3) MG/DL Total Bilirubin 0.5 (0.2-1.3) mg/dl AST 103 H (14-36) U/L ALT 99 H D (9-52) U/L Alkaline Phosphatase 148 H D (38-126) U/L Troponin I (0.00-0.120) ng/mL Total Protein 6.8 (6.3-8.2) G/DL Albumin 3.1 L (3.5-5.0) g/dL Globulin 3.6 (2.2-3.9) gm/dL Albumin/Globulin Ratio 0.9 L (1.0-2.1) Procalcitonin (0.19-0.49) NG/ML Vancomycin Trough (5.0-10.0) ug/mL Cold Agglutinins (NEGATIVE) 08/05/18 08/04/18 08/04/18 Range/Units 04:29 21:20 21:06 WBC (4.8-10.8) K/uL RBC (3.80-5.20) Mil/uL Hgb (12.0-16.0) g/dL Hct (34.0-47.0) % MCV (81.0-99.0) fl MCH (27.0-31.0) pg MCHC (33.0-37.0) g/dL RDW (11.5-14.5) % Plt Count (130-400) K/uL MPV (7.2-11.7) fl Neut % (Auto) (50.0-75.0) % Lymph % (Auto) (20.0-40.0) % [place] % (Auto) (0.0-10.0) % Eos % (Auto) (0.0-4.0) % Baso % (Auto) (0.0-2.0) % Neut # (Auto) (1.8-7.0) K/uL Lymph # (Auto) (1.0-4.3) K/uL [place] # (Auto) (0.0-0.8) K/uL Eos # (Auto) (0.0-0.7) K/uL Baso # (Auto) (0.0-0.2) K/uL pCO2 32 L (35-45) mm/Hg pO2 134 H (80-100) mm/Hg HCO3 27.0 (21-28) mmol/L ABG pH 7.51 H (7.35-7.45) ABG Total CO2 26.5 (22-28) mmol/L ABG O2 Saturation 100.3 H (95-98) % ABG O2 Content 13.4 L (15-23) ML/dL ABG Base Excess 2.6 (-2.0-3.0) mmol/L ABG Hemoglobin 9.6 L (11.7-17.4) g/dL ABG Carboxyhemoglobin 1.7 H (0.5-1.5) % POC ABG HHb (Measured) -0.3 L (0.0-5.0) % ABG Methemoglobin 1.0 (0.0-3.0) % ABG O2 Capacity 13.4 L (16-24) mL/dL Bridger Test Yes A-a O2 Difference 111.0 mm/Hg Hgb O2 Saturation 97.6 (95.0-98.0) % Vent Mode Simv/ps Mechanical Rate 8 FiO2 40.0 % Tidal Volume 450 PEEP 5 Pressure Support 10 Sodium (132-148) mmol/l Potassium (3.6-5.0) MMOL/L Chloride (98-107) mmol/L Carbon Dioxide (22-30) mmol/L Anion Gap (10-20) BUN (7-17) mg/dl Creatinine (0.7-1.2) mg/dl Est GFR ( Amer) Est GFR (Non-Af Amer) POC Glucose (mg/dL) 175 H (65-110) mg/dL Random Glucose (65-105) mg/dL Calcium (8.4-10.2) mg/dL Phosphorus (2.5-4.5) mg/dl Magnesium (1.6-2.3) MG/DL Total Bilirubin (0.2-1.3) mg/dl AST (14-36) U/L ALT (9-52) U/L Alkaline Phosphatase (38-126) U/L Troponin I (0.00-0.120) ng/mL Total Protein (6.3-8.2) G/DL Albumin (3.5-5.0) g/dL Globulin (2.2-3.9) gm/dL Albumin/Globulin Ratio (1.0-2.1) Procalcitonin (0.19-0.49) NG/ML Vancomycin Trough < 5.0 L (5.0-10.0) ug/mL Cold Agglutinins (NEGATIVE) 10/30/18 10/30/18 10/30/18 Range/Units 17:16 13:46 11:25 WBC (4.8-10.8) K/uL RBC (3.80-5.20) Mil/uL Hgb (12.0-16.0) g/dL Hct (34.0-47.0) % MCV (81.0-99.0) fl MCH (27.0-31.0) pg MCHC (33.0-37.0) g/dL RDW (11.5-14.5) % Plt Count (130-400) K/uL MPV (7.2-11.7) fl Neut % (Auto) (50.0-75.0) % Lymph % (Auto) (20.0-40.0) % [place] % (Auto) (0.0-10.0) % Eos % (Auto) (0.0-4.0) % Baso % (Auto) (0.0-2.0) % Neut # (Auto) (1.8-7.0) K/uL Lymph # (Auto) (1.0-4.3) K/uL [place] # (Auto) (0.0-0.8) K/uL Eos # (Auto) (0.0-0.7) K/uL Baso # (Auto) (0.0-0.2) K/uL pCO2 (35-45) mm/Hg pO2 (80-100) mm/Hg HCO3 (21-28) mmol/L ABG pH (7.35-7.45) ABG Total CO2 (22-28) mmol/L ABG O2 Saturation (95-98) % ABG O2 Content (15-23) ML/dL ABG Base Excess (-2.0-3.0) mmol/L ABG Hemoglobin (11.7-17.4) g/dL ABG Carboxyhemoglobin (0.5-1.5) % POC ABG HHb (Measured) (0.0-5.0) % ABG Methemoglobin (0.0-3.0) % ABG O2 Capacity (16-24) mL/dL Bridger Test A-a O2 Difference mm/Hg Hgb O2 Saturation (95.0-98.0) % Vent Mode Mechanical Rate FiO2 % Tidal Volume PEEP Pressure Support Sodium (132-148) mmol/l Potassium (3.6-5.0) MMOL/L Chloride (98-107) mmol/L Carbon Dioxide (22-30) mmol/L Anion Gap (10-20) BUN (7-17) mg/dl Creatinine (0.7-1.2) mg/dl Est GFR ( Amer) Est GFR (Non-Af Amer) POC Glucose (mg/dL) 162 H 169 H (65-110) mg/dL Random Glucose (65-105) mg/dL Calcium (8.4-10.2) mg/dL Phosphorus (2.5-4.5) mg/dl Magnesium (1.6-2.3) MG/DL Total Bilirubin (0.2-1.3) mg/dl AST (14-36) U/L ALT (9-52) U/L Alkaline Phosphatase (38-126) U/L Troponin I 0.0150 (0.00-0.120) ng/mL Total Protein (6.3-8.2) G/DL Albumin (3.5-5.0) g/dL Globulin (2.2-3.9) gm/dL Albumin/Globulin Ratio (1.0-2.1) Procalcitonin (0.19-0.49) NG/ML Vancomycin Trough (5.0-10.0) ug/mL Cold Agglutinins (NEGATIVE) 08/04/18 08/03/18 Range/Units 04:45 04:25 WBC (4.8-10.8) K/uL RBC (3.80-5.20) Mil/uL Hgb (12.0-16.0) g/dL Hct (34.0-47.0) % MCV (81.0-99.0) fl MCH (27.0-31.0) pg MCHC (33.0-37.0) g/dL RDW (11.5-14.5) % Plt Count (130-400) K/uL MPV (7.2-11.7) fl Neut % (Auto) (50.0-75.0) % Lymph % (Auto) (20.0-40.0) % [place] % (Auto) (0.0-10.0) % Eos % (Auto) (0.0-4.0) % Baso % (Auto) (0.0-2.0) % Neut # (Auto) (1.8-7.0) K/uL Lymph # (Auto) (1.0-4.3) K/uL [place] # (Auto) (0.0-0.8) K/uL Eos # (Auto) (0.0-0.7) K/uL Baso # (Auto) (0.0-0.2) K/uL pCO2 (35-45) mm/Hg pO2 (80-100) mm/Hg HCO3 (21-28) mmol/L ABG pH (7.35-7.45) ABG Total CO2 (22-28) mmol/L ABG O2 Saturation (95-98) % ABG O2 Content (15-23) ML/dL ABG Base Excess (-2.0-3.0) mmol/L ABG Hemoglobin (11.7-17.4) g/dL ABG Carboxyhemoglobin (0.5-1.5) % POC ABG HHb (Measured) (0.0-5.0) % ABG Methemoglobin (0.0-3.0) % ABG O2 Capacity (16-24) mL/dL Bridger Test A-a O2 Difference mm/Hg Hgb O2 Saturation (95.0-98.0) % Vent Mode Mechanical Rate FiO2 % Tidal Volume PEEP Pressure Support Sodium (132-148) mmol/l Potassium (3.6-5.0) MMOL/L Chloride (98-107) mmol/L Carbon Dioxide (22-30) mmol/L Anion Gap (10-20) BUN (7-17) mg/dl Creatinine (0.7-1.2) mg/dl Est GFR ( Amer) Est GFR (Non-Af Amer) POC Glucose (mg/dL) (65-110) mg/dL Random Glucose (65-105) mg/dL Calcium (8.4-10.2) mg/dL Phosphorus (2.5-4.5) mg/dl Magnesium (1.6-2.3) MG/DL Total Bilirubin (0.2-1.3) mg/dl AST (14-36) U/L ALT (9-52) U/L Alkaline Phosphatase (38-126) U/L Troponin I (0.00-0.120) ng/mL Total Protein (6.3-8.2) G/DL Albumin (3.5-5.0) g/dL Globulin (2.2-3.9) gm/dL Albumin/Globulin Ratio (1.0-2.1) Procalcitonin 0.78 H (0.19-0.49) NG/ML Vancomycin Trough (5.0-10.0) ug/mL Cold Agglutinins Negative (NEGATIVE) Laboratory Results - last 24 hr 08/03/18 08/04/18 08/04/18 04:25 04:45 11:25 WBC RBC Hgb Hct MCV MCH MCHC RDW Plt Count MPV Neut % (Auto) Lymph % (Auto) [place] % (Auto) Eos % (Auto) Baso % (Auto) Neut # (Auto) Lymph # (Auto) [place] # (Auto) Eos # (Auto) Baso # (Auto) pCO2 pO2 HCO3 ABG pH ABG Total CO2 ABG O2 Saturation ABG O2 Content ABG Base Excess ABG Hemoglobin ABG Carboxyhemoglobin POC ABG HHb (Measured) ABG Methemoglobin ABG O2 Capacity Bridger Test A-a O2 Difference Hgb O2 Saturation Vent Mode Mechanical Rate FiO2 Tidal Volume PEEP Pressure Support Sodium Potassium Chloride Carbon Dioxide Anion Gap BUN Creatinine Est GFR ( Amer) Est GFR (Non-Af Amer) POC Glucose (mg/dL) 169 H Random Glucose Calcium Phosphorus Magnesium Total Bilirubin AST ALT Alkaline Phosphatase Troponin I Total Protein Albumin Globulin Albumin/Globulin Ratio Procalcitonin 0.78 H Vancomycin Trough Cold Agglutinins Negative 08/04/18 08/04/18 08/04/18 13:46 17:16 21:06 WBC RBC Hgb Hct MCV MCH MCHC RDW Plt Count MPV Neut % (Auto) Lymph % (Auto) [place] % (Auto) Eos % (Auto) Baso % (Auto) Neut # (Auto) Lymph # (Auto) [place] # (Auto) Eos # (Auto) Baso # (Auto) pCO2 pO2 HCO3 ABG pH ABG Total CO2 ABG O2 Saturation ABG O2 Content ABG Base Excess ABG Hemoglobin ABG Carboxyhemoglobin POC ABG HHb (Measured) ABG Methemoglobin ABG O2 Capacity Bridger Test A-a O2 Difference Hgb O2 Saturation Vent Mode Mechanical Rate FiO2 Tidal Volume PEEP Pressure Support Sodium Potassium Chloride Carbon Dioxide Anion Gap BUN Creatinine Est GFR ( Amer) Est GFR (Non-Af Amer) POC Glucose (mg/dL) 162 H 175 H Random Glucose Calcium Phosphorus Magnesium Total Bilirubin AST ALT Alkaline Phosphatase Troponin I 0.0150 Total Protein Albumin Globulin Albumin/Globulin Ratio Procalcitonin Vancomycin Trough Cold Agglutinins 08/04/18 08/05/18 08/05/18 21:20 04:29 04:50 WBC 15.8 H RBC 3.64 L Hgb 9.5 L Hct 28.7 L MCV 78.8 L MCH 26.1 L MCHC 33.1 RDW 15.6 H Plt Count 346 MPV 8.5 Neut % (Auto) 77.1 H Lymph % (Auto) 12.7 L [place] % (Auto) 8.6 Eos % (Auto) 0.2 Baso % (Auto) 1.4 Neut # (Auto) 12.2 H Lymph # (Auto) 2.0 [place] # (Auto) 1.4 H Eos # (Auto) 0.0 Baso # (Auto) 0.2 pCO2 32 L pO2 134 H HCO3 27.0 ABG pH 7.51 H ABG Total CO2 26.5 ABG O2 Saturation 100.3 H ABG O2 Content 13.4 L ABG Base Excess 2.6 ABG Hemoglobin 9.6 L ABG Carboxyhemoglobin 1.7 H POC ABG HHb (Measured) -0.3 L ABG Methemoglobin 1.0 ABG O2 Capacity 13.4 L Bridger Test Yes A-a O2 Difference 111.0 Hgb O2 Saturation 97.6 Vent Mode Simv/ps Mechanical Rate 8 FiO2 40.0 Tidal Volume 450 PEEP 5 Pressure Support 10 Sodium Potassium Chloride Carbon Dioxide Anion Gap BUN Creatinine Est GFR ( Amer) Est GFR (Non-Af Amer) POC Glucose (mg/dL) Random Glucose Calcium Phosphorus Magnesium Total Bilirubin AST ALT Alkaline Phosphatase Troponin I Total Protein Albumin Globulin Albumin/Globulin Ratio Procalcitonin Vancomycin Trough < 5.0 L Cold Agglutinins 08/05/18 08/05/18 04:50 06:30 WBC RBC Hgb Hct MCV MCH MCHC RDW Plt Count MPV Neut % (Auto) Lymph % (Auto) [place] % (Auto) Eos % (Auto) Baso % (Auto) Neut # (Auto) Lymph # (Auto) [place] # (Auto) Eos # (Auto) Baso # (Auto) pCO2 pO2 HCO3 ABG pH ABG Total CO2 ABG O2 Saturation ABG O2 Content ABG Base Excess ABG Hemoglobin ABG Carboxyhemoglobin POC ABG HHb (Measured) ABG Methemoglobin ABG O2 Capacity Bridger Test A-a O2 Difference Hgb O2 Saturation Vent Mode Mechanical Rate FiO2 Tidal Volume PEEP Pressure Support Sodium 141 Potassium 3.2 L Chloride 105 Carbon Dioxide 27 Anion Gap 12 BUN 8 Creatinine 0.5 L Est GFR ( Amer) > 60 Est GFR (Non-Af Amer) > 60 POC Glucose (mg/dL) 211 H Random Glucose 230 H Calcium 8.8 Phosphorus 2.9 Magnesium 1.8 Total Bilirubin 0.5 AST 103 H ALT 99 H D Alkaline Phosphatase 148 H D Troponin I Total Protein 6.8 Albumin 3.1 L Globulin 3.6 Albumin/Globulin Ratio 0.9 L Procalcitonin Vancomycin Trough Cold Agglutinins Fingerstick Blood Sugar Results: 211 Critical Care Progress Note - Nutrition Nutrition: Nutrition Category Date Time Status NPO Diet [DIET] Diets 08/04/18 Breakfast Active Assessment/Plan - Assessment and Plan (Free Text) Assessment: Pt is a 62 y/o female residing in a shelter w/ pmhx of HTN, IDDM, Hypothyroidism, GERD, Schitzophrenia brought to [facility] ED s/p fall admitted for Sepsis due to PNU (HCAP vs Atypical PNU), with elevated lactic acid levels and receiving IV antibiotics. S/P Code Blue in Tele floors and transferred to ICU on 08/04. On Mechanical ventilation. Minimal imrpovement in mental status. #S/P Cardiac Arrest #Sepsis 2/2 to Pneumonia #AMS #Pleural Effusion #Mechanical Ventilation #Transaminitis Plan: #S/P Cardiac Arrest -AROSC achieved -EKG NSR -Serial troponins ; 0.01> 0.02>0.015 -Likely secondary to Acidosis which resolved after receiving IV Bicarb # Sepsis -Hemodynamically stable -Last fever on 08/03, Tmax 102.9 -Leukocytosis 15.8 -Lactic Acid 1.9 (Elevated on admission 3.2) -BCx x2 no growth in 48, UCx no growth in 48 -Etiology likely Respiratory: Cxray significant for R. Base Infiltrate, and left patchy perihilar basilar distributions. HCAP vs Atypical PNU. No well delineated on Cxray given moderately enlarged R. pleural effusion -IV Antibiotics: Vanco, Zosyn, Azithromycin. Procalcitonin normal on admission,suggesting viral process. -ID on board, Dr. Castorena #Pleural Effusion -Recent Cxray today shows worsening R. 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 Isolation protocols applied. -Diuresis w/ Lasix PRN (received 80 IV lasix yesterday with urine output of 4L/24hrs) #AMS -Currently GCS 8, minimal improvement but not at baseline -On admission pt noted to be lethargic, sepsis encephalopathy considered in setting of severe sepsis; Head CT on admission- no acute findings -Placed on IV Deprivan after intubation which was discontinued this morning, however mental status has not improved much -Currently considering other precipitating factors such as Seizure (Bradycardic in Tele, elevated Lactic Acid levels on admission). -Start Keppra 500mg po BID -Repeat Head CT ordered -Neuro checks q4, avoid sedative medication #Mechanical Ventilation -Indication: intubated on 08/03 s/p cardiac arrest due to poor mental status for protection of airways -ABG from 08/04, pH 7:45, pCO2 39, HCO3 27.2 on FIO2 60% -Will attempt weaning trials once patients mental status improves #Transaminitis -Mild AST, ALT, and ALP elevation -Unknown etiology -Will get GGT to assess for Biliary pathology. Abd US if positive -Daily CMP #HTN, HLD, Hypothyroidism,DM Schitzophrenia -Will resume all home meds except: Clozapine to avoid sedative effect #Diet: Tube feedings as ordered #GI Ulcer PPX: PPI IV #DVT ppx: Lovenox 400 SQ daily Full Code Next of Kin: Kym, daughter <Dillon Mak - Last Filed: 08/06/18 07:04> CCU Subjective - Physician Review Subjective (Free Text): Attestation: Patient seen and examined at the bedside with Resident Dr. Monica Kunz; and I agree with her outline of plans and management documented above and below, reflecting my review of all applicable clinical data, and participation in the care of the patient throughout the day in ICU; today, August 05, 2018.
--- NOTE | 2018-08-05 10:54 | RAD ---
Date of service: 08/05/2018 PROCEDURE: CHEST RADIOGRAPH, 1 VIEW HISTORY: placement confirmation COMPARISON: Chest radiograph dated 08/04/2018. FINDINGS: LUNGS: Low lung volumes. Pulmonary vascular congestion. Right basilar atelectasis. PLEURA: Elevation of the right hemidiaphragm. Right pleural effusion not excluded. No pneumothorax. CARDIOVASCULAR: Aortic atherosclerotic calcifications. Cardiomediastinal silhouette stably enlarged. OSSEOUS STRUCTURES: Unchanged. VISUALIZED UPPER ABDOMEN: Normal. OTHER FINDINGS: Endotracheal and enteric tubes, unchanged. IMPRESSION: Stable tubes and lines. Stable pulmonary vascular congestion. Small right pleural effusion not excluded.
--- NOTE | 2018-08-05 11:29 | CP.PCM.PN ---
<Radha Kim - Last Filed: 08/05/18 11:42> Subjective - Date & Time of Evaluation Date of Evaluation: 08/05/18 Time of Evaluation: 09:15 - Subjective Subjective: No acute overnight events. Good urinary output with IV lasix. Pt intubated, vent, breathing comfortably. Opens eyes, moving all ext. Sleepy, lethargic less edematous then previously. Off sedation yesterday. Objective - Vital Signs/Intake and Output Vital Signs (last 24 hours): Temp Pulse Resp BP Pulse Ox 97.8 F 71 14 146/70 94 L 08/05/18 08:00 08/05/18 09:33 08/05/18 08:00 08/05/18 10:33 08/05/18 08:00 Intake and Output: 08/05/18 08/05/18 06:59 18:59 Intake Total 1200 Output Total 1080 Balance 120 - Medications Medications: Current Medications Acetaminophen (Tylenol 325mg Tab) 650 mg PO Q6 PRN PRN Reason: Fever >100.4 F Last Admin: 08/05/18 05:35 Dose: 650 mg Albuterol Sulfate (Albuterol 0.083% Inhal Veronica (2.5 Mg/3 Ml) Ud) 2.5 mg INH RQ6 [facility] Last Admin: 08/05/18 07:56 Dose: 2.5 mg Amlodipine Besylate (Norvasc) 10 mg PO DAILY [facility] Last Admin: 08/05/18 09:33 Dose: 10 mg Aspirin (Ecotrin) 325 mg PO DAILY [facility] Last Admin: 08/05/18 09:30 Dose: 325 mg Atorvastatin Calcium (Lipitor) 10 mg PO HS [facility] Last Admin: 08/04/18 21:42 Dose: 10 mg Carvedilol (Coreg) 25 mg PO BID [facility] Last Admin: 08/05/18 09:29 Dose: 25 mg Dextrose (Dextrose 50% Inj) 0 ml IV STAT PRN; Protocol PRN Reason: Hypoglycemia Protocol Dextrose (Glutose 15) 0 gm PO ONCE PRN; Protocol PRN Reason: Hypoglycemia Protocol Divalproex Sodium (Depakote Er(Once Daily)) 1,250 mg PO HS [facility] Last Admin: 08/03/18 21:56 Dose: 1,250 mg Enoxaparin Sodium (Lovenox) 40 mg SC DAILY [facility]; Protocol Last Admin: 08/05/18 09:32 Dose: 40 mg Escitalopram Oxalate (Lexapro) 10 mg PO HS [facility] Last Admin: 08/03/18 21:31 Dose: 10 mg Fluticasone Propionate (Flonase) 2 spr ANIKA DAILY [facility] Last Admin: 08/05/18 09:30 Dose: Not Given Glucagon (Glucagen Diagnostic Kit) 0 mg IM STAT PRN; Protocol PRN Reason: Hypoglycemia Protocol Home Med (Acyclovir/Hydrocortisone [Xerese 5%-1% Cream]) 1 appl TOP PRN PRN PRN Reason: Itching / Pruritus Home Med (Clozapine [Fazaclo]) 200 mg PO HS [facility] Home Med (Colesevelam Hcl [Welchol]) 3.75 gm PO PRN PRN PRN Reason: Serum glucose Azithromycin 500 mg/ Sodium (Chloride) 250 mls @ 250 mls/hr IVPB DAILY [facility]; Protocol Last Admin: 08/05/18 09:35 Dose: 250 mls/hr Vancomycin HCl 1 gm/ Sodium (Chloride) 250 mls @ 250 mls/hr IVPB Q12H [facility]; Protocol Last Admin: 08/04/18 23:07 Dose: 250 mls/hr Piperacillin Sod/Tazobactam (Sod 3.375 gm/ Sodium Chloride) 100 mls @ 100 mls/hr IVPB Q8 [facility]; Protocol Last Admin: 08/05/18 09:34 Dose: 100 mls/hr Potassium Chloride (Potassium Chloride 20 Meq/100 Ml) 100 mls @ 50 mls/hr IVPB Q2 [facility] Stop: 08/05/18 11:59 Ibuprofen (Motrin Tab) 600 mg PO Q6 PRN PRN Reason: Fever >100.4 F Insulin Detemir (Levemir) 15 units SC [facility] Last Admin: 08/04/18 21:41 Dose: 15 u Insulin Human Lispro (Humalog) 0 units SC [facility]; Protocol Last Admin: 08/05/18 09:32 Dose: 2 units Levetiracetam (Keppra) 500 mg PO Q12 [facility] Levothyroxine Sodium (Synthroid) 50 mcg PO DAILY@0630 [facility] Last Admin: 08/05/18 05:36 Dose: 50 mcg Losartan Potassium (Cozaar) 50 mg PO DAILY [facility] Last Admin: 08/05/18 09:30 Dose: 50 mg Multivitamins/Minerals (Therapeutic-M Tab) 1 tab PO DAILY [facility] Last Admin: 08/05/18 09:33 Dose: 1 tab Pantoprazole Sodium (Protonix Ec Tab) 20 mg PO DAILY [facility] Last Admin: 08/05/18 09:33 Dose: 20 mg Sitagliptin Phosphate (Januvia) 100 mg PO HS [facility] Last Admin: 08/04/18 21:46 Dose: 100 mg - Labs Labs: 08/05/18 04:50 08/05/18 04:50 PT 12.2 Seconds (9.8-13.1) 08/04/18 00:30 INR 1.1 08/04/18 00:30 APTT 31.5 Seconds (25.6-37.1) 08/02/18 22:20 - Constitutional Appears: No Acute Distress, Other (edematous ) - Head Exam Head Exam: NORMAL INSPECTION - Eye Exam Eye Exam: Normal appearance - ENT Exam Additional comments: Vent, intubation - Respiratory Exam Respiratory Exam: Decreased Breath Sounds (in the RLL), NORMAL BREATHING PATTERN (course breath sounds ) - Cardiovascular Exam Cardiovascular Exam: REGULAR RHYTHM, +S1, +S2 - GI/Abdominal Exam GI & Abdominal Exam: Distended (obese ), Soft, Hyperactive Bowel Sounds. absent: Tenderness - Extremities Exam Extremities Exam: Normal Inspection, Pedal Edema Additional comments: Edema in the upper and lower ext b/l - Neurological Exam Neurological Exam: Alert - Psychiatric Exam Psychiatric exam: Normal Mood Assessment and Plan - Assessment and Plan (Free Text) Assessment: Assessment/Plan: 62 YO female from a [facility], with hx of DM II, Schizophrenia and HTN is admitted for sepsis and pneumonia. Labs were sig for Leukocytosis with bandemia. Repeat CXR after hydration showed atelectasis or infiltrate right base and left perihilar/medial basilar distributions. Patient was admitted for sepsis and m ultifocal pneumonia and was started on vanco , Zosyn and Zithromax IV During the admission, pt was found to be bradycardiac and was found unresponsive. Code blue was called for Suspected Pulseless electrical activity (questionable); compressed were done and pulse was achieved after 3 round of epi. pt was intubated and transferred to ICU. Wean off sedation. Mental status changes appreciated per family when compared to her baseline, will get CT head and neurology consult. RLL pneumonia with pleural effusion, will get CT chest and IR for drainage if needed. Cardio/Respiratory Failure -Code blue called; Suspected Pulseless electrical activity -s/p intubation and sedation -will wean off sedation, and try wean off intubation as tolerated -ekg and trops x 2 neg -XR no change in layering moderate right pleural effusion, stable position of tubes -Pulmonary on board Pneumonia -CXR sig for Interval patchy atelectasis or infiltrate right base and left perihilar/medial basilar distributions -XR sig for pleural effusion -ID on board; cont abx: azithro, vanco and zosyn -cultures pending; bcx, ucx and sputum (ux and bx no growth thus far) -legionella pending -pulmonary on board -will get CT chest, IR if drain needed for effusion -PPD pos in the past, will get quant-gold sputum cxs Sepsis -improving -leukocytosis with bandemia -likely 2/2 to pneumonia -c/w IV abx -ID on board Change in mental status -likely 2/2 to sepsis, vs sedation vs questionable seizure vs infract -will get CT head -Neurology consulted; follow up recs Anasarca -likely 2/2 to fluid overloaded -IV lasix given 40mg x 2 yesterday -good urinary output -good renal function -will give another 40mg of IVP Hypothyrodism -chronic, uncontrolled -levo decreased to 50mcg daily DM -chronic -Metformin on hold -Sliding scale prn, c/w home meds -hypoglycemia protocol HTN -chronic -c/w home meds Schizopherenia -chronic -home meds held -depakote levels normal DVT -c/w lovenox sc <Kera Naylor - Last Filed: 08/05/18 17:47> Objective - Vital Signs/Intake and Output Vital Signs (last 24 hours): Temp Pulse Resp BP Pulse Ox 99.4 F 70 20 151/74 H 95 08/05/18 16:00 08/05/18 16:00 08/05/18 16:00 08/05/18 16:00 08/05/18 16:00 Intake and Output: 08/05/18 08/05/18 06:59 18:59 Intake Total 1200 2600 Output Total 1080 Balance 120 2600 - Medications Medications: Current Medications Acetaminophen (Tylenol 325mg Tab) 650 mg PO Q6 PRN PRN Reason: Fever >100.4 F Last Admin: 08/05/18 05:35 Dose: 650 mg Albuterol Sulfate (Albuterol 0.083% Inhal Veronica (2.5 Mg/3 Ml) Ud) 2.5 mg INH RQ6 [facility] Last Admin: 08/05/18 07:56 Dose: 2.5 mg Amlodipine Besylate (Norvasc) 10 mg PO DAILY [facility] Last Admin: 08/05/18 09:33 Dose: 10 mg Aspirin (Ecotrin) 325 mg PO DAILY [facility] Last Admin: 08/05/18 09:30 Dose: 325 mg Atorvastatin Calcium (Lipitor) 10 mg PO HS [facility] Last Admin: 08/04/18 21:42 Dose: 10 mg Carvedilol (Coreg) 25 mg PO BID [facility] Last Admin: 08/05/18 09:29 Dose: 25 mg Dextrose (Dextrose 50% Inj) 0 ml IV STAT PRN; Protocol PRN Reason: Hypoglycemia Protocol Dextrose (Glutose 15) 0 gm PO ONCE PRN; Protocol PRN Reason: Hypoglycemia Protocol Divalproex Sodium (Depakote Er(Once Daily)) 1,250 mg PO HS [facility] Last Admin: 08/03/18 21:56 Dose: 1,250 mg Enoxaparin Sodium (Lovenox) 40 mg SC DAILY [facility]; Protocol Last Admin: 08/05/18 09:32 Dose: 40 mg Escitalopram Oxalate (Lexapro) 10 mg PO HS [facility] Last Admin: 08/03/18 21:31 Dose: 10 mg Fluticasone Propionate (Flonase) 2 spr ANIKA DAILY [facility] Last Admin: 08/05/18 09:30 Dose: Not Given Glucagon (Glucagen Diagnostic Kit) 0 mg IM STAT PRN; Protocol PRN Reason: Hypoglycemia Protocol Home Med (Acyclovir/Hydrocortisone [Xerese 5%-1% Cream]) 1 appl TOP PRN PRN PRN Reason: Itching / Pruritus Home Med (Colesevelam Hcl [Welchol]) 3.75 gm PO PRN PRN PRN Reason: Serum glucose Azithromycin 500 mg/ Sodium (Chloride) 250 mls @ 250 mls/hr IVPB DAILY [facility]; Protocol Last Admin: 08/05/18 09:35 Dose: 250 mls/hr Vancomycin HCl 1 gm/ Sodium (Chloride) 250 mls @ 250 mls/hr IVPB Q12H [facility]; Protocol Last Admin: 08/05/18 12:42 Dose: 250 mls/hr Piperacillin Sod/Tazobactam (Sod 3.375 gm/ Sodium Chloride) 100 mls @ 100 mls/hr IVPB Q8 [facility]; Protocol Last Admin: 08/05/18 09:34 Dose: 100 mls/hr Levetiracetam 1,000 mg/ Sodium (Chloride) 110 mls @ 215 mls/hr IVPB Q12 [facility] Last Admin: 08/05/18 15:23 Dose: 215 mls/hr Ibuprofen (Motrin Tab) 600 mg PO Q6 PRN PRN Reason: Fever >100.4 F Insulin Detemir (Levemir) 15 units SC HS [facility] Last Admin: 08/04/18 21:41 Dose: 15 u Insulin Human Lispro (Humalog) 0 units SC [facility]; Protocol Last Admin: 08/05/18 12:39 Dose: 2 units Levothyroxine Sodium (Synthroid) 50 mcg PO DAILY@0630 [facility] Last Admin: 08/05/18 05:36 Dose: 50 mcg Losartan Potassium (Cozaar) 50 mg PO DAILY [facility] Last Admin: 08/05/18 09:30 Dose: 50 mg Multivitamins/Minerals (Therapeutic-M Tab) 1 tab PO DAILY [facility] Last Admin: 08/05/18 09:33 Dose: 1 tab Pantoprazole Sodium (Protonix Ec Tab) 20 mg PO DAILY [facility] Last Admin: 08/05/18 09:33 Dose: 20 mg Sitagliptin Phosphate (Januvia) 100 mg PO [facility] Last Admin: 08/04/18 21:46 Dose: 100 mg - Labs Labs: 08/05/18 04:50 08/05/18 04:50 PT 12.2 Seconds (9.8-13.1) 08/04/18 00:30 INR 1.1 08/04/18 00:30 APTT 31.5 Seconds (25.6-37.1) 08/02/18 22:20 Attending/Attestation - Attestation I have personally seen and examined this patient.: Yes I have fully participated in the care of the patient.: Yes I have reviewed all pertinent clinical information, including history, physical exam and plan: Yes Notes (Text): 08/05/18 17:45 Seen examined and discussed with resident. Agree with findings and plan as above. Pt is HD stable, continue to be on VENT Diprivan has been off since yesterday Patient opened eyes to name but did not follow any commands, except for opening her mouth during mouth care. Repeat CT head and Chest today. Head CT neg. CT Chest + effusion, however not drainable per IR. Discussed with [employer] Back Tender, plan for Neuro consult for suspected Seizures. EEG + seizures STATUS EPILEPTICUS +keppra load and ativan for break.
[2018-08-05 11:58] LABS: ARTERIAL BLOOD GAS PCO2 40 mm/Hg (35-45); ARTERIAL BLOOD GAS PH 7.47 (7.35-7.45)
[2018-08-05 11:59] LABS: ARTERIAL BLOOD GAS HCO3 28.8 mmol/L (21-28); ARTERIAL BLOOD GAS O2 CONTENT 13.1 ML/dL (15-23); ARTERIAL BLOOD GAS PO2 98 mm/Hg (80-100)
[2018-08-05 12:00] LABS: ARTERIAL BLOOD GAS O2 SAT 97.9 % (95-98); ARTERIAL BLOOD GAS TCO2 30.3 mmol/L (22-28)
[2018-08-05 12:01] LABS: ARTERIAL BLOOD GAS FIO2 60 %
--- NOTE | 2018-08-05 12:18 | CT ---
Date of service: 08/05/2018 PROCEDURE: CT HEAD WITHOUT CONTRAST. HISTORY: change in mental status COMPARISON: 08/02/2018 TECHNIQUE: Axial computed tomography images were obtained through the head/brain without intravenous contrast. Radiation dose: Total exam DLP = 858.82 mGy-cm. This CT exam was performed using one or more of the following dose reduction techniques: Automated exposure control, adjustment of the mA and/or kV according to patient size, and/or use of iterative reconstruction technique. FINDINGS: HEMORRHAGE: No intracranial hemorrhage. BRAIN: No mass effect or edema. Cerebral atrophy and similar chronic microvascular ischemic no changes noted VENTRICLES: Unremarkable. No hydrocephalus. CALVARIUM: Unremarkable. PARANASAL SINUSES: Extensive ethmoidal sinusitis. Chronic mucosal thickening/chronic sinusitis each maxillary sinus-similar. Interval air-fluid level in sphenoid sinus. MASTOID AIR CELLS: Unremarkable as visualized. No inflammatory changes. OTHER FINDINGS: None. IMPRESSION: No intracranial hemorrhage or mass effect. Cerebral atrophy and similar chronic microvascular ischemic changes Paranasal sinus inflammatory changes-interval air-fluid level/sinusitis sphenoid sinus now noted.
[2018-08-05] MEDS: Potassium Chloride 20 mEq 100 ML IVPB SCH ×2 (12:20→14:30)
--- NOTE | 2018-08-05 12:27 | CT ---
Date of service: 08/05/2018 PROCEDURE: CT Chest without contrast HISTORY: pleural effusion COMPARISON: None available. TECHNIQUE: Contiguous axial images were obtained through the chest without intravenous contrast enhancement. Sagittal and coronal reconstructions were performed. Radiation dose: Total exam DLP = 529.62 mGy-cm. This CT exam was performed using one or more of the following dose reduction techniques: Automated exposure control, adjustment of the mA and/or kV according to patient size, and/or use of iterative reconstruction technique. FINDINGS: LUNGS: Bilateral pleural effusions right greater than left. Bibasilar compressive atelectasis with or without underlying infiltrate-right greater than left. The consolidation-less in the left lung-is contiguous with the left hilar soft tissues on this non IV contrast enhanced study limiting optimal evaluation for any concomitant potential left hilar pathology. Prominent left pulmonary vessels with or without some mild regional lymphadenopathy here is 1 consideration. After therapy and clearance of the effusions and the blending consolidation, consider follow-up CT chest imaging with IV contrast enhancement to better assess hilar anatomy. MEDIASTINUM: . No aneurysm. Enlarged heart. Main pulmonary artery unremarkable. No vascular congestion. No definitive suspect lymphadenopathy. However the study is limited in this regard shotty mediastinal and hilar lymph nodes are suspect There is presence of aortic atherosclerotic calcification and mural plaque on cross sectional studies. PLEURA: Bilateral pleural effusions-detailed in the lung section above. No pneumothorax. BONES: No fracture. No destructive lesion. Thoracic spondylosis. UPPER ABDOMEN: Grossly unremarkable. OTHER FINDINGS: None. IMPRESSION: Bilateral pleural effusions with passive compressive atelectasis with or without infiltrates the pathology is greater on the right side. The soft tissue changes blend with the left hilar anatomy impeding its evaluation. Please note the above lung section. Consider follow-up CT of the chest with IV contrast enhancement after therapy and clearance to better assess hilar anatomy
--- NOTE | 2018-08-05 12:50 | PCM.IRP ---
History of Present Illness - History of Present Illness History of Present Illness: IR requested to perform thoracentesis. CT reviewed. There is not enough fluid for thoracentesis. There is Right lower lobe atelectasis as well contributing to consolidation/opacity on CXR. Objective - Vital Signs/Intake and Output Vital Signs (last 24 hours): Vital Signs - 24 hr 08/04/18 08/04/18 08/04/18 13:00 13:55 14:00 Temperature Pulse Rate 66 74 Respiratory 14 18 Rate Blood Pressure 141/64 141/64 145/73 O2 Sat by Pulse 95 95 Oximetry 08/04/18 08/04/18 08/04/18 15:00 16:00 17:12 Temperature 99.4 F Pulse Rate 66 88 67 Respiratory 16 20 Rate Blood Pressure 145/63 172/90 H 154/67 H O2 Sat by Pulse 94 L 95 Oximetry 08/04/18 08/04/18 08/04/18 18:00 20:00 20:48 Temperature 99.4 F Pulse Rate 79 80 Respiratory 18 16 Rate Blood Pressure 159/68 H 164/68 H 164/68 H O2 Sat by Pulse 95 94 L Oximetry 08/04/18 08/04/18 08/04/18 20:50 21:50 22:00 Temperature 99.5 F 99.2 F Pulse Rate 84 Respiratory 16 Rate Blood Pressure 134/74 O2 Sat by Pulse 94 L Oximetry 08/05/18 08/05/18 08/05/18 00:00 02:00 04:00 Temperature 99.0 F 99.3 F Pulse Rate 71 87 62 Respiratory 18 25 H 16 Rate Blood Pressure 154/70 H 154/78 H 134/57 L O2 Sat by Pulse 95 90 L 95 Oximetry 08/05/18 08/05/18 08/05/18 05:35 06:00 08:00 Temperature 99.3 F 97.8 F Pulse Rate 67 84 Respiratory 18 14 Rate Blood Pressure 165/66 H 146/55 L O2 Sat by Pulse 95 94 L Oximetry 08/05/18 08/05/18 08/05/18 09:29 09:30 09:33 Temperature Pulse Rate 73 76 71 Respiratory Rate Blood Pressure 146/65 146/65 146/65 O2 Sat by Pulse Oximetry 08/05/18 08/05/18 10:33 12:00 Temperature 99.1 F Pulse Rate 72 Respiratory 19 Rate Blood Pressure 146/70 171/66 H O2 Sat by Pulse 95 Oximetry Intake and Output (last 12 hours): Intake & Output 08/04/18 08/05/18 08/05/18 18:59 06:59 18:59 Intake Total 1370 1200 Output Total 2900 1080 Balance -1530 120 Weight 196 lb 9.6 oz Intake: IV 800 600 Intake, Piggyback 550 Tube Feeding 20 300 Free Water Flush 300 Output: Urine 2900 1080 Urethral (Ray) 2900 1080 Other: # Bowel Movements 0 0 - Medications Medications: Current Medications Acetaminophen (Tylenol 325mg Tab) 650 mg PO Q6 PRN PRN Reason: Fever >100.4 F Last Admin: 08/05/18 05:35 Dose: 650 mg Albuterol Sulfate (Albuterol 0.083% Inhal Veronica (2.5 Mg/3 Ml) Ud) 2.5 mg INH RQ6 [facility] Last Admin: 08/05/18 07:56 Dose: 2.5 mg Amlodipine Besylate (Norvasc) 10 mg PO DAILY [facility] Last Admin: 08/05/18 09:33 Dose: 10 mg Aspirin (Ecotrin) 325 mg PO DAILY [facility] Last Admin: 08/05/18 09:30 Dose: 325 mg Atorvastatin Calcium (Lipitor) 10 mg PO HS [facility] Last Admin: 08/04/18 21:42 Dose: 10 mg Carvedilol (Coreg) 25 mg PO BID [facility] Last Admin: 08/05/18 09:29 Dose: 25 mg Dextrose (Dextrose 50% Inj) 0 ml IV STAT PRN; Protocol PRN Reason: Hypoglycemia Protocol Dextrose (Glutose 15) 0 gm PO ONCE PRN; Protocol PRN Reason: Hypoglycemia Protocol Divalproex Sodium (Depakote Er(Once Daily)) 1,250 mg PO HS [facility] Last Admin: 08/03/18 21:56 Dose: 1,250 mg Enoxaparin Sodium (Lovenox) 40 mg SC DAILY [facility]; Protocol Last Admin: 08/05/18 09:32 Dose: 40 mg Escitalopram Oxalate (Lexapro) 10 mg PO HS [facility] Last Admin: 08/03/18 21:31 Dose: 10 mg Fluticasone Propionate (Flonase) 2 spr ANIKA DAILY [facility] Last Admin: 08/05/18 09:30 Dose: Not Given Glucagon (Glucagen Diagnostic Kit) 0 mg IM STAT PRN; Protocol PRN Reason: Hypoglycemia Protocol Home Med (Acyclovir/Hydrocortisone [Xerese 5%-1% Cream]) 1 appl TOP PRN PRN PRN Reason: Itching / Pruritus Home Med (Clozapine [Fazaclo]) 200 mg PO HS [facility] Home Med (Colesevelam Hcl [Welchol]) 3.75 gm PO PRN PRN PRN Reason: Serum glucose Azithromycin 500 mg/ Sodium (Chloride) 250 mls @ 250 mls/hr IVPB DAILY [facility]; Protocol Last Admin: 08/05/18 09:35 Dose: 250 mls/hr Vancomycin HCl 1 gm/ Sodium (Chloride) 250 mls @ 250 mls/hr IVPB Q12H [facility]; Protocol Last Admin: 08/05/18 12:42 Dose: 250 mls/hr Piperacillin Sod/Tazobactam (Sod 3.375 gm/ Sodium Chloride) 100 mls @ 100 mls/hr IVPB Q8 [facility]; Protocol Last Admin: 08/05/18 09:34 Dose: 100 mls/hr Ibuprofen (Motrin Tab) 600 mg PO Q6 PRN PRN Reason: Fever >100.4 F Insulin Detemir (Levemir) 15 units SC [facility] Last Admin: 08/04/18 21:41 Dose: 15 u Insulin Human Lispro (Humalog) 0 units SC [facility]; Protocol Last Admin: 08/05/18 12:39 Dose: 2 units Levetiracetam (Keppra) 500 mg PO Q12 [facility] Last Admin: 08/05/18 12:39 Dose: 500 mg Levothyroxine Sodium (Synthroid) 50 mcg PO DAILY@0630 [facility] Last Admin: 08/05/18 05:36 Dose: 50 mcg Losartan Potassium (Cozaar) 50 mg PO DAILY [facility] Last Admin: 08/05/18 09:30 Dose: 50 mg Multivitamins/Minerals (Therapeutic-M Tab) 1 tab PO DAILY [facility] Last Admin: 08/05/18 09:33 Dose: 1 tab Pantoprazole Sodium (Protonix Ec Tab) 20 mg PO DAILY [facility] Last Admin: 08/05/18 09:33 Dose: 20 mg Sitagliptin Phosphate (Januvia) 100 mg PO [facility] Last Admin: 08/04/18 21:46 Dose: 100 mg - Labs Labs (last 24 hours): Laboratory Results - last 24 hr 08/04/18 08/04/18 08/04/18 04:45 11:25 13:46 WBC RBC Hgb Hct MCV MCH MCHC RDW Plt Count MPV Neut % (Auto) Lymph % (Auto) Brooks % (Auto) Eos % (Auto) Baso % (Auto) Neut # (Auto) Lymph # (Auto) Brooks # (Auto) Eos # (Auto) Baso # (Auto) pCO2 pO2 HCO3 ABG pH ABG Total CO2 ABG O2 Saturation ABG O2 Content ABG Base Excess ABG Hemoglobin ABG Carboxyhemoglobin POC ABG HHb (Measured) ABG Methemoglobin ABG O2 Capacity Bridger Test A-a O2 Difference Hgb O2 Saturation Vent Mode Mechanical Rate FiO2 Tidal Volume PEEP Pressure Support Sodium Potassium Chloride Carbon Dioxide Anion Gap BUN Creatinine Est GFR ( Amer) Est GFR (Non-Af Amer) POC Glucose (mg/dL) 169 H Random Glucose Calcium Phosphorus Magnesium Total Bilirubin AST ALT Alkaline Phosphatase Troponin I 0.0150 Total Protein Albumin Globulin Albumin/Globulin Ratio Procalcitonin 0.78 H Vancomycin Trough 08/04/18 08/04/18 08/04/18 17:16 21:06 21:20 WBC RBC Hgb Hct MCV MCH MCHC RDW Plt Count MPV Neut % (Auto) Lymph % (Auto) Brooks % (Auto) Eos % (Auto) Baso % (Auto) Neut # (Auto) Lymph # (Auto) Brooks # (Auto) Eos # (Auto) Baso # (Auto) pCO2 pO2 HCO3 ABG pH ABG Total CO2 ABG O2 Saturation ABG O2 Content ABG Base Excess ABG Hemoglobin ABG Carboxyhemoglobin POC ABG HHb (Measured) ABG Methemoglobin ABG O2 Capacity Bridger Test A-a O2 Difference Hgb O2 Saturation Vent Mode Mechanical Rate FiO2 Tidal Volume PEEP Pressure Support Sodium Potassium Chloride Carbon Dioxide Anion Gap BUN Creatinine Est GFR ( Amer) Est GFR (Non-Af Amer) POC Glucose (mg/dL) 162 H 175 H Random Glucose Calcium Phosphorus Magnesium Total Bilirubin AST ALT Alkaline Phosphatase Troponin I Total Protein Albumin Globulin Albumin/Globulin Ratio Procalcitonin Vancomycin Trough < 5.0 L 08/05/18 08/05/18 08/05/18 04:29 04:50 04:50 WBC 15.8 H RBC 3.64 L Hgb 9.5 L Hct 28.7 L MCV 78.8 L MCH 26.1 L MCHC 33.1 RDW 15.6 H Plt Count 346 MPV 8.5 Neut % (Auto) 77.1 H Lymph % (Auto) 12.7 L Brooks % (Auto) 8.6 Eos % (Auto) 0.2 Baso % (Auto) 1.4 Neut # (Auto) 12.2 H Lymph # (Auto) 2.0 Brooks # (Auto) 1.4 H Eos # (Auto) 0.0 Baso # (Auto) 0.2 pCO2 40 pO2 98 HCO3 28.8 H ABG pH 7.47 H ABG Total CO2 30.3 H ABG O2 Saturation 97.9 ABG O2 Content 13.1 L ABG Base Excess 5.0 H ABG Hemoglobin 9.6 L ABG Carboxyhemoglobin 0.7 POC ABG HHb (Measured) 2.1 ABG Methemoglobin 1.1 ABG O2 Capacity 13.4 L Bridger Test Yes A-a O2 Difference 280.0 Hgb O2 Saturation 96.0 Vent Mode Ac Mechanical Rate 14 FiO2 60 Tidal Volume 450 PEEP 5 Pressure Support Sodium 141 Potassium 3.2 L Chloride 105 Carbon Dioxide 27 Anion Gap 12 BUN 8 Creatinine 0.5 L Est GFR ( Amer) > 60 Est GFR (Non-Af Amer) > 60 POC Glucose (mg/dL) Random Glucose 230 H Calcium 8.8 Phosphorus 2.9 Magnesium 1.8 Total Bilirubin 0.5 AST 103 H ALT 99 H D Alkaline Phosphatase 148 H D Troponin I Total Protein 6.8 Albumin 3.1 L Globulin 3.6 Albumin/Globulin Ratio 0.9 L Procalcitonin Vancomycin Trough 08/05/18 06:30 WBC RBC Hgb Hct MCV MCH MCHC RDW Plt Count MPV Neut % (Auto) Lymph % (Auto) Brooks % (Auto) Eos % (Auto) Baso % (Auto) Neut # (Auto) Lymph # (Auto) Brooks # (Auto) Eos # (Auto) Baso # (Auto) pCO2 pO2 HCO3 ABG pH ABG Total CO2 ABG O2 Saturation ABG O2 Content ABG Base Excess ABG Hemoglobin ABG Carboxyhemoglobin POC ABG HHb (Measured) ABG Methemoglobin ABG O2 Capacity Bridger Test A-a O2 Difference Hgb O2 Saturation Vent Mode Mechanical Rate FiO2 Tidal Volume PEEP Pressure Support Sodium Potassium Chloride Carbon Dioxide Anion Gap BUN Creatinine Est GFR ( Amer) Est GFR (Non-Af Amer) POC Glucose (mg/dL) 211 H Random Glucose Calcium Phosphorus Magnesium Total Bilirubin AST ALT Alkaline Phosphatase Troponin I Total Protein Albumin Globulin Albumin/Globulin Ratio Procalcitonin Vancomycin Trough
--- NOTE | 2018-08-05 13:25 | CP.PCM.PN ---
Subjective - Date & Time of Evaluation Date of Evaluation: 08/05/18 Time of Evaluation: 08:00 - Subjective Subjective: intubated confused opens eyes Objective - Vital Signs/Intake and Output Vital Signs (last 24 hours): Temp Pulse Resp BP Pulse Ox 99.1 F 72 19 171/66 H 95 08/05/18 12:00 08/05/18 12:00 08/05/18 12:00 08/05/18 12:00 08/05/18 12:00 Intake and Output: 08/05/18 08/05/18 06:59 18:59 Intake Total 1200 Output Total 1080 Balance 120 - Medications Medications: Current Medications Acetaminophen (Tylenol 325mg Tab) 650 mg PO Q6 PRN PRN Reason: Fever >100.4 F Last Admin: 08/05/18 05:35 Dose: 650 mg Albuterol Sulfate (Albuterol 0.083% Inhal Veronica (2.5 Mg/3 Ml) Ud) 2.5 mg INH RQ6 [facility] Last Admin: 08/05/18 07:56 Dose: 2.5 mg Amlodipine Besylate (Norvasc) 10 mg PO DAILY [facility] Last Admin: 08/05/18 09:33 Dose: 10 mg Aspirin (Ecotrin) 325 mg PO DAILY [facility] Last Admin: 08/05/18 09:30 Dose: 325 mg Atorvastatin Calcium (Lipitor) 10 mg PO HS [facility] Last Admin: 08/04/18 21:42 Dose: 10 mg Carvedilol (Coreg) 25 mg PO BID [facility] Last Admin: 08/05/18 09:29 Dose: 25 mg Dextrose (Dextrose 50% Inj) 0 ml IV STAT PRN; Protocol PRN Reason: Hypoglycemia Protocol Dextrose (Glutose 15) 0 gm PO ONCE PRN; Protocol PRN Reason: Hypoglycemia Protocol Divalproex Sodium (Depakote Er(Once Daily)) 1,250 mg PO HS [facility] Last Admin: 08/03/18 21:56 Dose: 1,250 mg Enoxaparin Sodium (Lovenox) 40 mg SC DAILY [facility]; Protocol Last Admin: 08/05/18 09:32 Dose: 40 mg Escitalopram Oxalate (Lexapro) 10 mg PO HS [facility] Last Admin: 08/03/18 21:31 Dose: 10 mg Fluticasone Propionate (Flonase) 2 spr ANIKA DAILY [facility] Last Admin: 08/05/18 09:30 Dose: Not Given Glucagon (Glucagen Diagnostic Kit) 0 mg IM STAT PRN; Protocol PRN Reason: Hypoglycemia Protocol Home Med (Acyclovir/Hydrocortisone [Xerese 5%-1% Cream]) 1 appl TOP PRN PRN PRN Reason: Itching / Pruritus Home Med (Clozapine [Fazaclo]) 200 mg PO HS [facility] Home Med (Colesevelam Hcl [Welchol]) 3.75 gm PO PRN PRN PRN Reason: Serum glucose Azithromycin 500 mg/ Sodium (Chloride) 250 mls @ 250 mls/hr IVPB DAILY [facility]; Protocol Last Admin: 08/05/18 09:35 Dose: 250 mls/hr Vancomycin HCl 1 gm/ Sodium (Chloride) 250 mls @ 250 mls/hr IVPB Q12H [facility]; Protocol Last Admin: 08/05/18 12:42 Dose: 250 mls/hr Piperacillin Sod/Tazobactam (Sod 3.375 gm/ Sodium Chloride) 100 mls @ 100 mls/hr IVPB Q8 [facility]; Protocol Last Admin: 08/05/18 09:34 Dose: 100 mls/hr Ibuprofen (Motrin Tab) 600 mg PO Q6 PRN PRN Reason: Fever >100.4 F Insulin Detemir (Levemir) 15 units SC [facility] Last Admin: 08/04/18 21:41 Dose: 15 u Insulin Human Lispro (Humalog) 0 units SC [facility]; Protocol Last Admin: 08/05/18 12:39 Dose: 2 units Levetiracetam (Keppra) 500 mg PO Q12 [facility] Last Admin: 08/05/18 12:39 Dose: 500 mg Levothyroxine Sodium (Synthroid) 50 mcg PO DAILY@0630 [facility] Last Admin: 08/05/18 05:36 Dose: 50 mcg Losartan Potassium (Cozaar) 50 mg PO DAILY [facility] Last Admin: 08/05/18 09:30 Dose: 50 mg Multivitamins/Minerals (Therapeutic-M Tab) 1 tab PO DAILY [facility] Last Admin: 08/05/18 09:33 Dose: 1 tab Pantoprazole Sodium (Protonix Ec Tab) 20 mg PO DAILY [facility] Last Admin: 08/05/18 09:33 Dose: 20 mg Sitagliptin Phosphate (Januvia) 100 mg PO [facility] Last Admin: 08/04/18 21:46 Dose: 100 mg - Labs Labs: 08/05/18 04:50 08/05/18 04:50 PT 12.2 Seconds (9.8-13.1) 08/04/18 00:30 INR 1.1 08/04/18 00:30 APTT 31.5 Seconds (25.6-37.1) 08/02/18 22:20 - Constitutional Appears: Non-toxic, Chronically Ill - Head Exam Head Exam: NORMOCEPHALIC - Eye Exam Eye Exam: absent: Scleral icterus - ENT Exam ENT Exam: Mucous Membranes Dry - Neck Exam Neck Exam: absent: Lymphadenopathy - Respiratory Exam Respiratory Exam: Decreased Breath Sounds - Cardiovascular Exam Cardiovascular Exam: REGULAR RHYTHM - GI/Abdominal Exam GI & Abdominal Exam: Distended - Rectal Exam Rectal Exam: Deferred - Exam Exam: NORMAL INSPECTION - Extremities Exam Extremities Exam: absent: Pedal Edema - Back Exam Back Exam: absent: CVA tenderness (L), CVA tenderness (R) - Neurological Exam Neurological Exam: Altered Assessment and Plan (1) Pneumonia Status: Acute (2) Severe sepsis Status: Acute - Assessment and Plan (Free Text) Assessment: s/p cardiac arrest r/o anoxic event cultures so far negative CT Head and chest pending cont IV antibiotics
--- NOTE | 2018-08-05 13:53 | CP.PCM.CON ---
History of Present Illness - History of Present Illness History of Present Illness: Neurology Consultation Note: Mrs. Ahumada is a 62-year-old woman who lives in a ch[facility] due to schizophrenia and has a past medical history of HTN, IDDM, Hypothyroidism, GERD, who was admitted for a fall and found to have sepsis due to pneumonia. She had a code blue yesterday, was intubated and is now on mechanical ventilation with no significant purposeful activity. CT scan of the head did not show any acute findings. EEG was consistent with left frontal focal seizures. She is on clozapine and has been on other antipsychotics. Review of Systems - Review of Systems Systems not reviewed;Unavailable: Altered Mental Status, Intubated Past Patient History - Past Medical History & Family History Past Medical History?: Yes - Past Social History Smoking Status: Light Smoker < 10 Cigarettes Daily - CARDIAC Hx Hypercholesterolemia: Yes Hx Hypertension: Yes - PULMONARY Hx Respiratory Disorders: Yes Hx Pneumonia: Yes - NEUROLOGICAL Hx Neurological Disorder: No - HEENT Hx HEENT Problems: No - RENAL Hx Chronic Kidney Disease: No - ENDOCRINE/METABOLIC Hx Endocrine Disorders: Yes Hx Diabetes Mellitus Type 2: Yes Hx Hypothyroidism: Yes - HEMATOLOGICAL/ONCOLOGICAL Hx Blood Disorders: No Hx AIDS: No Hx Human Immunodeficiency Virus (HIV): No - INTEGUMENTARY Hx Dermatological Problems: No - MUSCULOSKELETAL/RHEUMATOLOGICAL Hx Musculoskeletal Disorders: No Hx Falls: Yes - GASTROINTESTINAL Hx Gastritis: Yes - GENITOURINARY/GYNECOLOGICAL Hx Genitourinary Disorders: No - PSYCHIATRIC Hx Psychophysiologic Disorder: Yes Hx Depression: Yes Hx Schizophrenia: Yes Hx Substance Use: No - SURGICAL HISTORY Hx Surgeries: No - ANESTHESIA Hx Anesthesia: No Meds Allergies/Adverse Reactions: Allergies Allergy/AdvReac Type Severity Reaction Status Date / Time No Known Allergies Allergy Verified 08/02/18 21:49 - Medications Medications: Current Medications Acetaminophen (Tylenol 325mg Tab) 650 mg PO Q6 PRN PRN Reason: Fever >100.4 F Last Admin: 08/05/18 05:35 Dose: 650 mg Albuterol Sulfate (Albuterol 0.083% Inhal Veronica (2.5 Mg/3 Ml) Ud) 2.5 mg INH RQ6 [facility] Last Admin: 08/05/18 07:56 Dose: 2.5 mg Amlodipine Besylate (Norvasc) 10 mg PO DAILY [facility] Last Admin: 08/05/18 09:33 Dose: 10 mg Aspirin (Ecotrin) 325 mg PO DAILY [facility] Last Admin: 08/05/18 09:30 Dose: 325 mg Atorvastatin Calcium (Lipitor) 10 mg PO HS [facility] Last Admin: 08/04/18 21:42 Dose: 10 mg Carvedilol (Coreg) 25 mg PO BID [facility] Last Admin: 08/05/18 09:29 Dose: 25 mg Dextrose (Dextrose 50% Inj) 0 ml IV STAT PRN; Protocol PRN Reason: Hypoglycemia Protocol Dextrose (Glutose 15) 0 gm PO ONCE PRN; Protocol PRN Reason: Hypoglycemia Protocol Divalproex Sodium (Depakote Er(Once Daily)) 1,250 mg PO HS [facility] Last Admin: 08/03/18 21:56 Dose: 1,250 mg Enoxaparin Sodium (Lovenox) 40 mg SC DAILY [facility]; Protocol Last Admin: 08/05/18 09:32 Dose: 40 mg Escitalopram Oxalate (Lexapro) 10 mg PO HS [facility] Last Admin: 08/03/18 21:31 Dose: 10 mg Fluticasone Propionate (Flonase) 2 spr ANIKA DAILY [facility] Last Admin: 08/05/18 09:30 Dose: Not Given Glucagon (Glucagen Diagnostic Kit) 0 mg IM STAT PRN; Protocol PRN Reason: Hypoglycemia Protocol Home Med (Acyclovir/Hydrocortisone [Xerese 5%-1% Cream]) 1 appl TOP PRN PRN PRN Reason: Itching / Pruritus Home Med (Clozapine [Fazaclo]) 200 mg PO HS [facility] Home Med (Colesevelam Hcl [Welchol]) 3.75 gm PO PRN PRN PRN Reason: Serum glucose Azithromycin 500 mg/ Sodium (Chloride) 250 mls @ 250 mls/hr IVPB DAILY [facility]; Protocol Last Admin: 08/05/18 09:35 Dose: 250 mls/hr Vancomycin HCl 1 gm/ Sodium (Chloride) 250 mls @ 250 mls/hr IVPB Q12H [facility]; Protocol Last Admin: 08/05/18 12:42 Dose: 250 mls/hr Piperacillin Sod/Tazobactam (Sod 3.375 gm/ Sodium Chloride) 100 mls @ 100 mls/hr IVPB Q8 [facility]; Protocol Last Admin: 08/05/18 09:34 Dose: 100 mls/hr Ibuprofen (Motrin Tab) 600 mg PO Q6 PRN PRN Reason: Fever >100.4 F Insulin Detemir (Levemir) 15 units SC [facility] Last Admin: 08/04/18 21:41 Dose: 15 u Insulin Human Lispro (Humalog) 0 units SC [facility]; Protocol Last Admin: 08/05/18 12:39 Dose: 2 units Levetiracetam (Keppra) 500 mg PO Q12 [facility] Last Admin: 08/05/18 12:39 Dose: 500 mg Levothyroxine Sodium (Synthroid) 50 mcg PO DAILY@0630 [facility] Last Admin: 08/05/18 05:36 Dose: 50 mcg Losartan Potassium (Cozaar) 50 mg PO DAILY [facility] Last Admin: 08/05/18 09:30 Dose: 50 mg Multivitamins/Minerals (Therapeutic-M Tab) 1 tab PO DAILY [facility] Last Admin: 08/05/18 09:33 Dose: 1 tab Pantoprazole Sodium (Protonix Ec Tab) 20 mg PO DAILY [facility] Last Admin: 08/05/18 09:33 Dose: 20 mg Sitagliptin Phosphate (Januvia) 100 mg PO [facility] Last Admin: 08/04/18 21:46 Dose: 100 mg Physical Exam - Constitutional Appears: Chronically Ill - Head Exam Head Exam: ATRAUMATIC, NORMAL INSPECTION, NORMOCEPHALIC - Eye Exam Eye Exam: Normal appearance - ENT Exam ENT Exam: Mucous Membranes Moist, Normal Exam - Neck Exam Neck exam: Positive for: Normal Inspection - Respiratory Exam Respiratory Exam: NORMAL BREATHING PATTERN - Cardiovascular Exam Cardiovascular Exam: REGULAR RHYTHM, +S1, +S2 - GI/Abdominal Exam GI & Abdominal Exam: Normal Bowel Sounds, Soft. absent: Tenderness - Rectal Exam Rectal Exam: Deferred - Neurological Exam Additional comments: Opens eyes to voice, moves all extremities to pain, but does not localize of follow commands. GCS 8T. Results - Vital Signs Recent Vital Signs: Last Vital Signs Temp 99.1 F 08/05/18 12:00 Pulse 72 08/05/18 12:00 Resp 19 08/05/18 12:00 BP 171/66 H 08/05/18 12:00 Pulse Ox 95 08/05/18 12:00 - Labs Result Diagrams: 08/05/18 04:50 08/05/18 04:50 Labs: Laboratory Results - last 24 hr 08/04/18 08/04/18 08/04/18 04:45 11:25 13:46 WBC RBC Hgb Hct MCV MCH MCHC RDW Plt Count MPV Neut % (Auto) Lymph % (Auto) [place] % (Auto) Eos % (Auto) Baso % (Auto) Neut # (Auto) Lymph # (Auto) [place] # (Auto) Eos # (Auto) Baso # (Auto) pCO2 pO2 HCO3 ABG pH ABG Total CO2 ABG O2 Saturation ABG O2 Content ABG Base Excess ABG Hemoglobin ABG Carboxyhemoglobin POC ABG HHb (Measured) ABG Methemoglobin ABG O2 Capacity Bridger Test A-a O2 Difference Hgb O2 Saturation Vent Mode Mechanical Rate FiO2 Tidal Volume PEEP Pressure Support Sodium Potassium Chloride Carbon Dioxide Anion Gap BUN Creatinine Est GFR ( Amer) Est GFR (Non-Af Amer) POC Glucose (mg/dL) 169 H Random Glucose Calcium Phosphorus Magnesium Total Bilirubin AST ALT Alkaline Phosphatase Troponin I 0.0150 Total Protein Albumin Globulin Albumin/Globulin Ratio Procalcitonin 0.78 H Vancomycin Trough 08/04/18 08/04/18 08/04/18 17:16 21:06 21:20 WBC RBC Hgb Hct MCV MCH MCHC RDW Plt Count MPV Neut % (Auto) Lymph % (Auto) [place] % (Auto) Eos % (Auto) Baso % (Auto) Neut # (Auto) Lymph # (Auto) [place] # (Auto) Eos # (Auto) Baso # (Auto) pCO2 pO2 HCO3 ABG pH ABG Total CO2 ABG O2 Saturation ABG O2 Content ABG Base Excess ABG Hemoglobin ABG Carboxyhemoglobin POC ABG HHb (Measured) ABG Methemoglobin ABG O2 Capacity Bridger Test A-a O2 Difference Hgb O2 Saturation Vent Mode Mechanical Rate FiO2 Tidal Volume PEEP Pressure Support Sodium Potassium Chloride Carbon Dioxide Anion Gap BUN Creatinine Est GFR ( Amer) Est GFR (Non-Af Amer) POC Glucose (mg/dL) 162 H 175 H Random Glucose Calcium Phosphorus Magnesium Total Bilirubin AST ALT Alkaline Phosphatase Troponin I Total Protein Albumin Globulin Albumin/Globulin Ratio Procalcitonin Vancomycin Trough < 5.0 L 08/05/18 08/05/18 08/05/18 04:29 04:50 04:50 WBC 15.8 H RBC 3.64 L Hgb 9.5 L Hct 28.7 L MCV 78.8 L MCH 26.1 L MCHC 33.1 RDW 15.6 H Plt Count 346 MPV 8.5 Neut % (Auto) 77.1 H Lymph % (Auto) 12.7 L [place] % (Auto) 8.6 Eos % (Auto) 0.2 Baso % (Auto) 1.4 Neut # (Auto) 12.2 H Lymph # (Auto) 2.0 [place] # (Auto) 1.4 H Eos # (Auto) 0.0 Baso # (Auto) 0.2 pCO2 40 pO2 98 HCO3 28.8 H ABG pH 7.47 H ABG Total CO2 30.3 H ABG O2 Saturation 97.9 ABG O2 Content 13.1 L ABG Base Excess 5.0 H ABG Hemoglobin 9.6 L ABG Carboxyhemoglobin 0.7 POC ABG HHb (Measured) 2.1 ABG Methemoglobin 1.1 ABG O2 Capacity 13.4 L Bridger Test Yes A-a O2 Difference 280.0 Hgb O2 Saturation 96.0 Vent Mode Ac Mechanical Rate 14 FiO2 60 Tidal Volume 450 PEEP 5 Pressure Support Sodium 141 Potassium 3.2 L Chloride 105 Carbon Dioxide 27 Anion Gap 12 BUN 8 Creatinine 0.5 L Est GFR ( Amer) > 60 Est GFR (Non-Af Amer) > 60 POC Glucose (mg/dL) Random Glucose 230 H Calcium 8.8 Phosphorus 2.9 Magnesium 1.8 Total Bilirubin 0.5 AST 103 H ALT 99 H D Alkaline Phosphatase 148 H D Troponin I Total Protein 6.8 Albumin 3.1 L Globulin 3.6 Albumin/Globulin Ratio 0.9 L Procalcitonin Vancomycin Trough 08/05/18 06:30 WBC RBC Hgb Hct MCV MCH MCHC RDW Plt Count MPV Neut % (Auto) Lymph % (Auto) [place] % (Auto) Eos % (Auto) Baso % (Auto) Neut # (Auto) Lymph # (Auto) [place] # (Auto) Eos # (Auto) Baso # (Auto) pCO2 pO2 HCO3 ABG pH ABG Total CO2 ABG O2 Saturation ABG O2 Content ABG Base Excess ABG Hemoglobin ABG Carboxyhemoglobin POC ABG HHb (Measured) ABG Methemoglobin ABG O2 Capacity Bridger Test A-a O2 Difference Hgb O2 Saturation Vent Mode Mechanical Rate FiO2 Tidal Volume PEEP Pressure Support Sodium Potassium Chloride Carbon Dioxide Anion Gap BUN Creatinine Est GFR ( Amer) Est GFR (Non-Af Amer) POC Glucose (mg/dL) 211 H Random Glucose Calcium Phosphorus Magnesium Total Bilirubin AST ALT Alkaline Phosphatase Troponin I Total Protein Albumin Globulin Albumin/Globulin Ratio Procalcitonin Vancomycin Trough Assessment & Plan (1) Localization-related (focal) (partial) symptomatic epilepsy and epileptic syndromes with complex partial seizures, intractable, with status epilepticus Assessment and Plan: Likely due to infection and antipsychotics lowering the seizure threshold. Will treat status with Ativan 4 mg now and increase Keppra to 1000 mg Q12. Will s top clozapine. Status: Acute (2) Toxic metabolic encephalopathy Assessment and Plan: Continue treating underlying infection. Thank you for the consultation. Status: Acute
[2018-08-05] MEDS: levETIRAcetam 1,000 MG in Sodium Chloride 0.9% 100 ML IVPB SCH ×3 (15:23→21:30)
[2018-08-05] MEDS: Sodium Chloride 0.9% 1,000 ML IV SCH (17:53)
[2018-08-05] MEDS: Insulin Detemir 100 Units/ml Inj SC SCH (21:40)
--- NOTE | 2018-08-05 23:05 | CP.PCM.CON ---
History of Present Illness - History of Present Illness History of Present Illness: Patient seen and examined, full consult to follow. Cont care as per ICU. Past Patient History - Past Medical History & Family History Past Medical History?: Yes - Past Social History Smoking Status: Light Smoker < 10 Cigarettes Daily - CARDIAC Hx Hypercholesterolemia: Yes Hx Hypertension: Yes - PULMONARY Hx Respiratory Disorders: Yes Hx Pneumonia: Yes - NEUROLOGICAL Hx Neurological Disorder: No - HEENT Hx HEENT Problems: No - RENAL Hx Chronic Kidney Disease: No - ENDOCRINE/METABOLIC Hx Endocrine Disorders: Yes Hx Diabetes Mellitus Type 2: Yes Hx Hypothyroidism: Yes - HEMATOLOGICAL/ONCOLOGICAL Hx Blood Disorders: No Hx AIDS: No Hx Human Immunodeficiency Virus (HIV): No - INTEGUMENTARY Hx Dermatological Problems: No - MUSCULOSKELETAL/RHEUMATOLOGICAL Hx Musculoskeletal Disorders: No Hx Falls: Yes - GASTROINTESTINAL Hx Gastritis: Yes - GENITOURINARY/GYNECOLOGICAL Hx Genitourinary Disorders: No - PSYCHIATRIC Hx Psychophysiologic Disorder: Yes Hx Depression: Yes Hx Schizophrenia: Yes Hx Substance Use: No - SURGICAL HISTORY Hx Surgeries: No - ANESTHESIA Hx Anesthesia: No Meds Allergies/Adverse Reactions: Allergies Allergy/AdvReac Type Severity Reaction Status Date / Time No Known Allergies Allergy Verified 08/02/18 21:49 - Medications Medications: Current Medications Acetaminophen (Tylenol 325mg Tab) 650 mg PO Q6 PRN PRN Reason: Fever >100.4 F Last Admin: 08/05/18 05:35 Dose: 650 mg Albuterol Sulfate (Albuterol 0.083% Inhal Veronica (2.5 Mg/3 Ml) Ud) 2.5 mg INH RQ6 [facility] Last Admin: 08/05/18 19:08 Dose: 2.5 mg Amlodipine Besylate (Norvasc) 10 mg PO DAILY [facility] Last Admin: 08/05/18 09:33 Dose: 10 mg Aspirin (Ecotrin) 325 mg PO DAILY [facility] Last Admin: 08/05/18 09:30 Dose: 325 mg Atorvastatin Calcium (Lipitor) 10 mg PO HS [facility] Last Admin: 08/05/18 21:32 Dose: 10 mg Carvedilol (Coreg) 25 mg PO BID [facility] Last Admin: 08/05/18 17:55 Dose: 25 mg Dextrose (Dextrose 50% Inj) 0 ml IV STAT PRN; Protocol PRN Reason: Hypoglycemia Protocol Dextrose (Glutose 15) 0 gm PO ONCE PRN; Protocol PRN Reason: Hypoglycemia Protocol Divalproex Sodium (Depakote Er(Once Daily)) 1,250 mg PO HS [facility] Last Admin: 08/03/18 21:56 Dose: 1,250 mg Enoxaparin Sodium (Lovenox) 40 mg SC DAILY [facility]; Protocol Last Admin: 08/05/18 09:32 Dose: 40 mg Escitalopram Oxalate (Lexapro) 10 mg PO HS [facility] Last Admin: 08/03/18 21:31 Dose: 10 mg Fluticasone Propionate (Flonase) 2 spr ANIKA DAILY [facility] Last Admin: 08/05/18 09:30 Dose: Not Given Glucagon (Glucagen Diagnostic Kit) 0 mg IM STAT PRN; Protocol PRN Reason: Hypoglycemia Protocol Home Med (Acyclovir/Hydrocortisone [Xerese 5%-1% Cream]) 1 appl TOP PRN PRN PRN Reason: Itching / Pruritus Home Med (Colesevelam Hcl [Welchol]) 3.75 gm PO PRN PRN PRN Reason: Serum glucose Azithromycin 500 mg/ Sodium (Chloride) 250 mls @ 250 mls/hr IVPB DAILY [facility]; Protocol Last Admin: 08/05/18 09:35 Dose: 250 mls/hr Vancomycin HCl 1 gm/ Sodium (Chloride) 250 mls @ 250 mls/hr IVPB Q12H [facility]; Pr otocol Last Admin: 08/05/18 12:42 Dose: 250 mls/hr Piperacillin Sod/Tazobactam (Sod 3.375 gm/ Sodium Chloride) 100 mls @ 100 mls/hr IVPB Q8 [facility]; Protocol Last Admin: 08/05/18 17:50 Dose: 100 mls/hr Levetiracetam 1,000 mg/ Sodium (Chloride) 110 mls @ 110 mls/hr IVPB Q12H [facility] Ibuprofen (Motrin Tab) 600 mg PO Q6 PRN PRN Reason: Fever >100.4 F Insulin Detemir (Levemir) 15 units SC HS [facility] Last Admin: 08/05/18 21:40 Dose: 15 u Insulin Human Lispro (Humalog) 0 units SC [facility]; Protocol Last Admin: 08/05/18 21:12 Dose: Not Given Levothyroxine Sodium (Synthroid) 50 mcg PO DAILY@0630 [facility] Last Admin: 08/05/18 05:36 Dose: 50 mcg Losartan Potassium (Cozaar) 50 mg PO DAILY [facility] Last Admin: 08/05/18 09:30 Dose: 50 mg Multivitamins/Minerals (Therapeutic-M Tab) 1 tab PO DAILY [facility] Last Admin: 08/05/18 09:33 Dose: 1 tab Pantoprazole Sodium (Protonix Ec Tab) 20 mg PO DAILY [facility] Last Admin: 08/05/18 09:33 Dose: 20 mg Sitagliptin Phosphate (Januvia) 100 mg PO HS [facility] Last Admin: 08/05/18 21:32 Dose: 100 mg Results - Vital Signs Recent Vital Signs: Last Vital Signs Temp 100.5 F H 08/05/18 20:00 Pulse 75 08/05/18 22:00 Resp 19 08/05/18 22:00 BP 171/74 H 08/05/18 22:00 Pulse Ox 96 08/05/18 22:00 - Labs Result Diagrams: 08/05/18 04:50 08/05/18 04:50 Labs: Laboratory Results - last 24 hr 08/03/18 08/04/18 08/04/18 17:14 11:25 17:16 WBC RBC Hgb Hct MCV MCH MCHC RDW Plt Count MPV Neut % (Auto) Lymph % (Auto) [place] % (Auto) Eos % (Auto) Baso % (Auto) Neut # (Auto) Lymph # (Auto) [place] # (Auto) Eos # (Auto) Baso # (Auto) pCO2 pO2 HCO3 ABG pH ABG Total CO2 ABG O2 Saturation ABG O2 Content ABG Base Excess ABG Hemoglobin ABG Carboxyhemoglobin POC ABG HHb (Measured) ABG Methemoglobin ABG O2 Capacity Bridger Test A-a O2 Difference Hgb O2 Saturation Vent Mode Mechanical Rate FiO2 Tidal Volume PEEP Pressure Support Sodium Potassium Chloride Carbon Dioxide Anion Gap BUN Creatinine Est GFR ( Amer) Est GFR (Non-Af Amer) POC Glucose (mg/dL) 169 H 162 H Random Glucose Calcium Phosphorus Magnesium Total Bilirubin GGT AST ALT Alkaline Phosphatase Total Protein Albumin Globulin Albumin/Globulin Ratio HIV 1&2 Antibody Screen Ur L.pneumophila Ag Negative 08/04/18 08/05/18 08/05/18 21:06 04:29 04:50 WBC 15.8 H RBC 3.64 L Hgb 9.5 L Hct 28.7 L MCV 78.8 L MCH 26.1 L MCHC 33.1 RDW 15.6 H Plt Count 346 MPV 8.5 Neut % (Auto) 77.1 H Lymph % (Auto) 12.7 L [place] % (Auto) 8.6 Eos % (Auto) 0.2 Baso % (Auto) 1.4 Neut # (Auto) 12.2 H Lymph # (Auto) 2.0 [place] # (Auto) 1.4 H Eos # (Auto) 0.0 Baso # (Auto) 0.2 pCO2 40 pO2 98 HCO3 28.8 H ABG pH 7.47 H ABG Total CO2 30.3 H ABG O2 Saturation 97.9 ABG O2 Content 13.1 L ABG Base Excess 5.0 H ABG Hemoglobin 9.6 L ABG Carboxyhemoglobin 0.7 POC ABG HHb (Measured) 2.1 ABG Methemoglobin 1.1 ABG O2 Capacity 13.4 L Bridger Test Yes A-a O2 Difference 280.0 Hgb O2 Saturation 96.0 Vent Mode Ac Mechanical Rate 14 FiO2 60 Tidal Volume 450 PEEP 5 Pressure Support Sodium Potassium Chloride Carbon Dioxide Anion Gap BUN Creatinine Est GFR ( Amer) Est GFR (Non-Af Amer) POC Glucose (mg/dL) 175 H Random Glucose Calcium Phosphorus Magnesium Total Bilirubin GGT AST ALT Alkaline Phosphatase Total Protein Albumin Globulin Albumin/Globulin Ratio HIV 1&2 Antibody Screen Ur L.pneumophila Ag 08/05/18 08/05/18 08/05/18 04:50 06:00 06:30 WBC RBC Hgb Hct MCV MCH MCHC RDW Plt Count MPV Neut % (Auto) Lymph % (Auto) [place] % (Auto) Eos % (Auto) Baso % (Auto) Neut # (Auto) Lymph # (Auto) [place] # (Auto) Eos # (Auto) Baso # (Auto) pCO2 pO2 HCO3 ABG pH ABG Total CO2 ABG O2 Saturation ABG O2 Content ABG Base Excess ABG Hemoglobin ABG Carboxyhemoglobin POC ABG HHb (Measured) ABG Methemoglobin ABG O2 Capacity Bridger Test A-a O2 Difference Hgb O2 Saturation Vent Mode Mechanical Rate FiO2 Tidal Volume PEEP Pressure Support Sodium 141 Potassium 3.2 L Chloride 105 Carbon Dioxide 27 Anion Gap 12 BUN 8 Creatinine 0.5 L Est GFR ( Amer) > 60 Est GFR (Non-Af Amer) > 60 POC Glucose (mg/dL) 211 H Random Glucose 230 H Calcium 8.8 Phosphorus 2.9 Magnesium 1.8 Total Bilirubin 0.5 GGT 72 AST 103 H ALT 99 H D Alkaline Phosphatase 148 H D Total Protein 6.8 Albumin 3.1 L Globulin 3.6 Albumin/Globulin Ratio 0.9 L HIV 1&2 Antibody Screen Ur L.pneumophila Ag 08/05/18 17:14 WBC RBC Hgb Hct MCV MCH MCHC RDW Plt Count MPV Neut % (Auto) Lymph % (Auto) [place] % (Auto) Eos % (Auto) Baso % (Auto) Neut # (Auto) Lymph # (Auto) [place] # (Auto) Eos # (Auto) Baso # (Auto) pCO2 pO2 HCO3 ABG pH ABG Total CO2 ABG O2 Saturation ABG O2 Content ABG Base Excess ABG Hemoglobin ABG Carboxyhemoglobin POC ABG HHb (Measured) ABG Methemoglobin ABG O2 Capacity Bridger Test A-a O2 Difference Hgb O2 Saturation Vent Mode Mechanical Rate FiO2 Tidal Volume PEEP Pressure Support Sodium Potassium Chloride Carbon Dioxide Anion Gap BUN Creatinine Est GFR ( Amer) Est GFR (Non-Af Amer) POC Glucose (mg/dL) Random Glucose Calcium Phosphorus Magnesium Total Bilirubin GGT AST ALT Alkaline Phosphatase Total Protein Albumin Globulin Albumin/Globulin Ratio HIV 1&2 Antibody Screen Negative Ur L.pneumophila Ag
[2018-08-06] MEDS: Albuterol 0.083% Inhal Sol (2.5 mg/3 mL) UD INH SCH ×4 (01:10→19:45)
[2018-08-06] MEDS: Piperacillin/Tazobact 3.375 GM in Sodium Chloride 0.9% 100 ML IVPB SCH ×3 (01:41→16:21)
[2018-08-06] MEDS ORDERED: Potassium Chloride 20 MEQ in Sodium Chloride 0.45% 1,000 ML IV SCH ×2 (03:15→03:30)
[2018-08-06] MEDS ORDERED: levETIRAcetam 1,000 MG in Sodium Chloride 0.9% 100 ML IVPB SCH (04:00)
[2018-08-06 05:46] LABS: BASO # 0.2 K/uL (0.0-0.2); EOS # 0.1 K/uL (0.0-0.7); EOS % 0.4 % (0.0-4.0); HEMOGLOBIN 9.3 g/dL (12.0-16.0); LYMPH # 2.9 K/uL (1.0-4.3); LYMPH % 17.6 % (20.0-40.0); MEAN CELL VOLUME 79.5 fl (81.0-99.0); MEAN CORPUSCULAR HEMOGLOBIN 26.1 pg (27.0-31.0); MEAN CORPUSCULAR HGB CONC 32.8 g/dL (33.0-37.0); MEAN PLATELET VOLUME 8.6 fl (7.2-11.7); MONO # 1.5 K/uL (0.0-0.8); MONO % 9.1 % (0.0-10.0); NEUT # 11.8 K/uL (1.8-7.0); NEUT % 71.9 % (50.0-75.0); NRBC % 0.1 % (0.0-0.0); RBC 3.59 Mil/uL (3.80-5.20); RED CELL DISTRIBUTION WIDTH 15.4 % (11.5-14.5); WHITE BLOOD COUNT 16.4 K/uL (4.8-10.8)
[2018-08-06 05:54] LABS: ABG ALLEN TEST YES; ARTERIAL BLOOD GAS HCO3 28.8 mmol/L (21-28); ARTERIAL BLOOD GAS HEMOGLOBIN 9.1 g/dL (11.7-17.4); ARTERIAL BLOOD GAS O2 CAPACITY 12.7 mL/dL (16-24); ARTERIAL BLOOD GAS O2 CONTENT 12.4 ML/dL (15-23); ARTERIAL BLOOD GAS O2 SAT 97.7 % (95-98); ARTERIAL BLOOD GAS PCO2 40 mm/Hg (35-45); ARTERIAL BLOOD GAS PH 7.47 (7.35-7.45); ARTERIAL BLOOD GAS PO2 83 mm/Hg (80-100); ARTERIAL BLOOD GAS TCO2 30.3 mmol/L (22-28)
[2018-08-06] MEDS: Levothyroxine 50 MCG TAB PO SCH (06:01)
[2018-08-06 06:03] LABS: ALB/GLOB RATIO 0.9 (1.0-2.1); ALBUMIN 3.2 g/dL (3.5-5.0); ALT/SGPT 146 U/L (9-52); AST/SGOT 113 U/L (14-36); BLOOD UREA NITROGEN 12 mg/dl (7-17); GFR NON-AFRICAN AMERICAN > 60
[2018-08-06] MEDS: Insulin Lispro (humaLOG) 100 Units/ml Inj SC SCH ×4 (06:46→21:24)
--- NOTE | 2018-08-06 07:40 | CP.CCUPN ---
<Zi Naranjo - Last Filed: 08/06/18 16:58> CCU Subjective - Physician Review Subjective (Free Text): 08/06/18 08:27 Pt seen and examined at bedside. Overnight: low grade fever of 100.5 and cooling blankets placed. Pt on mechanical ventilator. Pt intermittently alert and responisve with hand gestures, however, for seconds. CCU Objective - Vital Signs / Intake & Output Vital Signs (Last 4 hours): Vital Signs Temp Pulse Resp BP Pulse Ox 08/06/18 06:00 71 19 163/74 H 98 08/06/18 05:45 77 175/75 H 08/06/18 05:00 77 21 175/75 H 98 08/06/18 04:00 99.4 F 72 19 165/76 H 97 Intake and Output (Last 8hrs): Intake & Output 08/05/18 08/06/18 08/06/18 22:59 06:59 14:59 Intake Total 1840 1470 Output Total 1600 800 Balance 240 670 Weight 196 lb 9 oz Intake: IV 900 560 Intake, Piggyback 100 250 Tube Feeding 540 360 Free Water Flush 300 300 Output: Urine 1600 800 Urethral (Ray) 1600 800 Other: # Bowel Movements 0 - Physical Exam Physical Exam Limitations: Positive for: Altered Mental Status Head: Positive for: Normocephalic Pupils: Positive for: Sluggish Conjunctiva: Positive for: Normal Ears: Positive for: Normal Mouth: Positive for: Moist Mucous Membranes (ETT tube in place, yellow secretions, OG tube) Nose (External): Positive for: Other Neck: Positive for: Normal Range of Motion Respiratory/Chest: Positive for: Good Air Exchange, Rhonchi. Negative for: Respiratory Distress, Rales Cardiovascular: Positive for: Regular Rate and Rhythm. Negative for: Murmurs Abdomen: Positive for: Distention, Normal Bowel Sounds Upper Extremity: Positive for: Edema (trace pitting in upper extremities bl), NORMAL PULSES, Capillary Refill < 2s Lower Extremity: Positive for: NORMAL PULSES, Capillary Refill < 2 s. Negative for: Edema Neurological: Positive for: Other (Eyes open spotnaneously, non verbal, withdraws from pain) Skin: Positive for: Warm, Dry, Rashes Psychiatric: Positive for: Alert (intermittently), Lethargic. Negative for: Oriented x 3, Agitated - Medications Active Medications: Active Medications Generic Name Dose Route Start Last Admin Trade Name Freq PRN Reason Stop Dose Admin Acetaminophen 650 mg 08/03/18 03:33 08/05/18 05:35 Tylenol 325mg Tab PO 650 mg Q6 PRN Administration Fever >100.4 F Albuterol Sulfate 2.5 mg 08/03/18 02:00 08/06/18 01:10 Albuterol 0.083% Inhal Veronica (2.5 Mg/3 Ml) Ud INH 2.5 mg RQ6 LESLIE Administration Amlodipine Besylate 10 mg 08/03/18 09:00 08/06/18 05:45 Norvasc PO 10 mg DAILY LESLIE Administration Aspirin 325 mg 08/03/18 09:00 08/05/18 09:30 Ecotrin PO 325 mg DAILY LESLIE Administration Atorvastatin Calcium 10 mg 08/03/18 22:00 08/05/18 21:32 Lipitor PO 10 mg HS LESLIE Administration Carvedilol 25 mg 08/03/18 09:00 08/05/18 17:55 Coreg PO 25 mg BID LESLIE Administration Dextrose 0 ml 08/03/18 03:35 Dextrose 50% Inj IV STAT PRN Hypoglycemia Protocol Protocol Dextrose 0 gm 08/03/18 03:35 Glutose 15 PO ONCE PRN Hypoglycemia Protocol Protocol Divalproex Sodium 1,250 mg 08/03/18 22:00 08/03/18 21:56 Depakote Er(Once Daily) PO 1,250 mg HS LESLIE Administration Enoxaparin Sodium 40 mg 08/03/18 09:00 08/05/18 09:32 Lovenox SC 40 mg DAILY LESLIE Administration Protocol Escitalopram Oxalate 10 mg 08/03/18 22:00 08/03/18 21:31 Lexapro PO 10 mg HS LESLIE Administration Fluticasone Propionate 2 spr 08/03/18 09:00 08/05/18 09:30 Flonase ANIKA Not Given DAILY LESLIE Glucagon 0 mg 08/03/18 03:35 Glucagen Diagnostic Kit IM STAT PRN Hypoglycemia Protocol Protocol Home Med 1 appl 08/03/18 01:25 Acyclovir/Hydrocortisone [Xerese 5%-1% Cream] TOP PRN PRN Itching / Pruritus Home Med 3.75 gm 08/03/18 01:25 Colesevelam Hcl [Welchol] PO PRN PRN Serum glucose Azithromycin 500 mg/ Sodium 250 mls @ 250 mls/hr 08/03/18 09:00 08/05/18 09:35 Chloride IVPB 250 mls/hr DAILY LESLIE Administration Protocol Vancomycin HCl 1 gm/ Sodium 250 mls @ 250 mls/hr 08/03/18 11:00 08/05/18 23:30 Chloride IVPB 250 mls/hr Q12H LESLIE Administration Protocol Piperacillin Sod/Tazobactam 100 mls @ 100 mls/hr 08/03/18 11:00 08/06/18 01:41 Sod 3.375 gm/ Sodium Chloride IVPB 100 mls/hr Q8 LESLIE Administration Protocol Levetiracetam 1,000 mg/ Sodium 110 mls @ 110 mls/hr 08/06/18 04:00 08/06/18 03:53 Chloride IVPB 110 mls/hr Q12H LESLIE Administration Potassium Chloride 20 meq/ 1,010 mls @ 40 mls/hr 08/06/18 03:30 08/06/18 03:54 Sodium Chloride IV 08/07/18 03:12 40 mls/hr .Q24H LESLIE Administration Ibuprofen 600 mg 08/03/18 13:30 Motrin Tab PO Q6 PRN Fever >100.4 F Insulin Detemir 15 units 08/03/18 22:00 08/05/18 21:40 Levemir SC 15 u HS LESLIE Administration Insulin Human Lispro 0 units 08/03/18 07:30 08/06/18 06:46 Humalog SC 3 units ACHS LESLIE Administration Protocol Levothyroxine Sodium 50 mcg 08/04/18 06:30 08/06/18 06:01 Synthroid PO 50 mcg DAILY@0630 LESLIE Administration Losartan Potassium 50 mg 08/03/18 09:00 08/05/18 09:30 Cozaar PO 50 mg DAILY LESLIE Administration Multivitamins/Minerals 1 tab 08/03/18 09:00 08/05/18 09:33 Therapeutic-M Tab PO 1 tab DAILY LESLIE Administration Pantoprazole Sodium 20 mg 08/03/18 09:00 08/05/18 09:33 Protonix Ec Tab PO 20 mg DAILY LESLIE Administration Sitagliptin Phosphate 100 mg 08/03/18 22:00 08/05/18 21:32 Januvia PO 100 mg HS LESLIE Administration - Patient Studies Lab Studies: Microbiology Studies 08/02/18 22:05 Blood Culture - Preliminary Blood-Venous NO GROWTH AFTER 3 DAYS 08/02/18 22:10 Blood Culture - Preliminary Blood-Venous NO GROWTH AFTER 3 DAYS 08/04/18 17:25 MRSA Culture (Admit) - Final Naris MRSA NOT DETECTED 08/03/18 16:41 Blood Culture - Preliminary Blood NO GROWTH AFTER 48 HOURS 08/03/18 16:31 Blood Culture - Preliminary Blood NO GROWTH AFTER 48 HOURS 08/04/18 08:03 Gram Stain - Final Sputum Lab Studies 08/06/18 08/06/18 08/06/18 Range/Units 05:17 04:52 04:40 WBC (4.8-10.8) K/uL RBC (3.80-5.20) Mil/uL Hgb (12.0-16.0) g/dL Hct (34.0-47.0) % MCV (81.0-99.0) fl MCH (27.0-31.0) pg MCHC (33.0-37.0) g/dL RDW (11.5-14.5) % Plt Count (130-400) K/uL MPV (7.2-11.7) fl Neut % (Auto) (50.0-75.0) % Lymph % (Auto) (20.0-40.0) % Pitt % (Auto) (0.0-10.0) % Eos % (Auto) (0.0-4.0) % Baso % (Auto) (0.0-2.0) % Neut # (Auto) (1.8-7.0) K/uL Lymph # (Auto) (1.0-4.3) K/uL Pitt # (Auto) (0.0-0.8) K/uL Eos # (Auto) (0.0-0.7) K/uL Baso # (Auto) (0.0-0.2) K/uL pCO2 40 (35-45) mm/Hg pO2 83 (80-100) mm/Hg HCO3 28.8 H (21-28) mmol/L ABG pH 7.47 H (7.35-7.45) ABG Total CO2 30.3 H (22-28) mmol/L ABG O2 Saturation 97.7 (95-98) % ABG O2 Content 12.4 L (15-23) ML/dL ABG Base Excess 5.0 H (-2.0-3.0) mmol/L ABG Hemoglobin 9.1 L (11.7-17.4) g/dL ABG Carboxyhemoglobin 0.6 (0.5-1.5) % POC ABG HHb (Measured) 2.3 (0.0-5.0) % ABG Methemoglobin 0.8 (0.0-3.0) % ABG O2 Capacity 12.7 L (16-24) mL/dL Bridger Test Yes A-a O2 Difference 295.0 mm/Hg Hgb O2 Saturation 96.3 (95.0-98.0) % Vent Mode Mechanical Rate 14 FiO2 60.0 % Tidal Volume 450 PEEP 5 Pressure Support Sodium (132-148) mmol/l Potassium (3.6-5.0) MMOL/L Chloride (98-107) mmol/L Carbon Dioxide (22-30) mmol/L Anion Gap (10-20) BUN (7-17) mg/dl Creatinine (0.7-1.2) mg/dl Est GFR ( Amer) Est GFR (Non-Af Amer) POC Glucose (mg/dL) 264 H (65-110) mg/dL Random Glucose (65-105) mg/dL Calcium (8.4-10.2) mg/dL Phosphorus (2.5-4.5) mg/dl Magnesium (1.6-2.3) MG/DL Total Bilirubin (0.2-1.3) mg/dl GGT (8-78) U/L AST (14-36) U/L ALT (9-52) U/L Alkaline Phosphatase (38-126) U/L Total Protein (6.3-8.2) G/DL Albumin (3.5-5.0) g/dL Globulin (2.2-3.9) gm/dL Albumin/Globulin Ratio (1.0-2.1) Vancomycin Trough 11.6 H (5.0-10.0) ug/mL HIV 1&2 Antibody Screen (NEGATIVE) Ur L.pneumophila Ag (NEGATIVE) 08/06/18 08/06/18 08/05/18 Range/Units 04:40 04:40 21:05 WBC 16.4 H (4.8-10.8) K/uL RBC 3.59 L (3.80-5.20) Mil/uL Hgb 9.3 L (12.0-16.0) g/dL Hct 28.5 L (34.0-47.0) % MCV 79.5 L (81.0-99.0) fl MCH 26.1 L (27.0-31.0) pg MCHC 32.8 L (33.0-37.0) g/dL RDW 15.4 H (11.5-14.5) % Plt Count 395 (130-400) K/uL MPV 8.6 (7.2-11.7) fl Neut % (Auto) 71.9 (50.0-75.0) % Lymph % (Auto) 17.6 L (20.0-40.0) % Pitt % (Auto) 9.1 (0.0-10.0) % Eos % (Auto) 0.4 (0.0-4.0) % Baso % (Auto) 1.0 (0.0-2.0) % Neut # (Auto) 11.8 H (1.8-7.0) K/uL Lymph # (Auto) 2.9 (1.0-4.3) K/uL Pitt # (Auto) 1.5 H (0.0-0.8) K/uL Eos # (Auto) 0.1 (0.0-0.7) K/uL Baso # (Auto) 0.2 (0.0-0.2) K/uL pCO2 (35-45) mm/Hg pO2 (80-100) mm/Hg HCO3 (21-28) mmol/L ABG pH (7.35-7.45) ABG Total CO2 (22-28) mmol/L ABG O2 Saturation (95-98) % ABG O2 Content (15-23) ML/dL ABG Base Excess (-2.0-3.0) mmol/L ABG Hemoglobin (11.7-17.4) g/dL ABG Carboxyhemoglobin (0.5-1.5) % POC ABG HHb (Measured) (0.0-5.0) % ABG Methemoglobin (0.0-3.0) % ABG O2 Capacity (16-24) mL/dL Bridger Test A-a O2 Difference mm/Hg Hgb O2 Saturation (95.0-98.0) % Vent Mode Mechanical Rate FiO2 % Tidal Volume PEEP Pressure Support Sodium 141 (132-148) mmol/l Potassium 3.8 (3.6-5.0) MMOL/L Chloride 106 (98-107) mmol/L Carbon Dioxide 26 (22-30) mmol/L Anion Gap 13 (10-20) BUN 12 (7-17) mg/dl Creatinine 0.4 L (0.7-1.2) mg/dl Est GFR ( Amer) > 60 Est GFR (Non-Af Amer) > 60 POC Glucose (mg/dL) 234 H (65-110) mg/dL Random Glucose 268 H (65-105) mg/dL Calcium 9.0 (8.4-10.2) mg/dL Phosphorus 3.2 (2.5-4.5) mg/dl Magnesium 1.9 (1.6-2.3) MG/DL Total Bilirubin 0.4 (0.2-1.3) mg/dl GGT (8-78) U/L AST 113 H (14-36) U/L ALT 146 H D (9-52) U/L Alkaline Phosphatase 191 H D (38-126) U/L Total Protein 6.8 (6.3-8.2) G/DL Albumin 3.2 L (3.5-5.0) g/dL Globulin 3.7 (2.2-3.9) gm/dL Albumin/Globulin Ratio 0.9 L (1.0-2.1) Vancomycin Trough (5.0-10.0) ug/mL HIV 1&2 Antibody Screen (NEGATIVE) Ur L.pneumophila Ag (NEGATIVE) 08/05/18 08/05/18 08/05/18 Range/Units 17:14 16:36 11:15 WBC (4.8-10.8) K/uL RBC (3.80-5.20) Mil/uL Hgb (12.0-16.0) g/dL Hct (34.0-47.0) % MCV (81.0-99.0) fl MCH (27.0-31.0) pg MCHC (33.0-37.0) g/dL RDW (11.5-14.5) % Plt Count (130-400) K/uL MPV (7.2-11.7) fl Neut % (Auto) (50.0-75.0) % Lymph % (Auto) (20.0-40.0) % Pitt % (Auto) (0.0-10.0) % Eos % (Auto) (0.0-4.0) % Baso % (Auto) (0.0-2.0) % Neut # (Auto) (1.8-7.0) K/uL Lymph # (Auto) (1.0-4.3) K/uL Pitt # (Auto) (0.0-0.8) K/uL Eos # (Auto) (0.0-0.7) K/uL Baso # (Auto) (0.0-0.2) K/uL pCO2 (35-45) mm/Hg pO2 (80-100) mm/Hg HCO3 (21-28) mmol/L ABG pH (7.35-7.45) ABG Total CO2 (22-28) mmol/L ABG O2 Saturation (95-98) % ABG O2 Content (15-23) ML/dL ABG Base Excess (-2.0-3.0) mmol/L ABG Hemoglobin (11.7-17.4) g/dL ABG Carboxyhemoglobin (0.5-1.5) % POC ABG HHb (Measured) (0.0-5.0) % ABG Methemoglobin (0.0-3.0) % ABG O2 Capacity (16-24) mL/dL Bridger Test A-a O2 Difference mm/Hg Hgb O2 Saturation (95.0-98.0) % Vent Mode Mechanical Rate FiO2 % Tidal Volume PEEP Pressure Support Sodium (132-148) mmol/l Potassium (3.6-5.0) MMOL/L Chloride (98-107) mmol/L Carbon Dioxide (22-30) mmol/L Anion Gap (10-20) BUN (7-17) mg/dl Creatinine (0.7-1.2) mg/dl Est GFR ( Amer) Est GFR (Non-Af Amer) POC Glucose (mg/dL) 174 H 220 H (65-110) mg/dL Random Glucose (65-105) mg/dL Calcium (8.4-10.2) mg/dL Phosphorus (2.5-4.5) mg/dl Magnesium (1.6-2.3) MG/DL Total Bilirubin (0.2-1.3) mg/dl GGT (8-78) U/L AST (14-36) U/L ALT (9-52) U/L Alkaline Phosphatase (38-126) U/L Total Protein (6.3-8.2) G/DL Albumin (3.5-5.0) g/dL Globulin (2.2-3.9) gm/dL Albumin/Globulin Ratio (1.0-2.1) Vancomycin Trough (5.0-10.0) ug/mL HIV 1&2 Antibody Screen Negative (NEGATIVE) Ur L.pneumophila Ag (NEGATIVE) 08/05/18 08/05/18 08/03/18 Range/Units 06:00 04:29 17:14 WBC (4.8-10.8) K/uL RBC (3.80-5.20) Mil/uL Hgb (12.0-16.0) g/dL Hct (34.0-47.0) % MCV (81.0-99.0) fl MCH (27.0-31.0) pg MCHC (33.0-37.0) g/dL RDW (11.5-14.5) % Plt Count (130-400) K/uL MPV (7.2-11.7) fl Neut % (Auto) (50.0-75.0) % Lymph % (Auto) (20.0-40.0) % Pitt % (Auto) (0.0-10.0) % Eos % (Auto) (0.0-4.0) % Baso % (Auto) (0.0-2.0) % Neut # (Auto) (1.8-7.0) K/uL Lymph # (Auto) (1.0-4.3) K/uL Pitt # (Auto) (0.0-0.8) K/uL Eos # (Auto) (0.0-0.7) K/uL Baso # (Auto) (0.0-0.2) K/uL pCO2 40 (35-45) mm/Hg pO2 98 (80-100) mm/Hg HCO3 28.8 H (21-28) mmol/L ABG pH 7.47 H (7.35-7.45) ABG Total CO2 30.3 H (22-28) mmol/L ABG O2 Saturation 97.9 (95-98) % ABG O2 Content 13.1 L (15-23) ML/dL ABG Base Excess 5.0 H (-2.0-3.0) mmol/L ABG Hemoglobin (11.7-17.4) g/dL ABG Carboxyhemoglobin 0.7 (0.5-1.5) % POC ABG HHb (Measured) 2.1 (0.0-5.0) % ABG Methemoglobin 1.1 (0.0-3.0) % ABG O2 Capacity (16-24) mL/dL Bridger Test A-a O2 Difference 280.0 mm/Hg Hgb O2 Saturation 96.0 (95.0-98.0) % Vent Mode Ac Mechanical Rate 14 FiO2 60 % Tidal Volume PEEP Pressure Support Sodium (132-148) mmol/l Potassium (3.6-5.0) MMOL/L Chloride (98-107) mmol/L Carbon Dioxide (22-30) mmol/L Anion Gap (10-20) BUN (7-17) mg/dl Creatinine (0.7-1.2) mg/dl Est GFR ( Amer) Est GFR (Non-Af Amer) POC Glucose (mg/dL) (65-110) mg/dL Random Glucose (65-105) mg/dL Calcium (8.4-10.2) mg/dL Phosphorus (2.5-4.5) mg/dl Magnesium (1.6-2.3) MG/DL Total Bilirubin (0.2-1.3) mg/dl GGT 72 (8-78) U/L AST (14-36) U/L ALT (9-52) U/L Alkaline Phosphatase (38-126) U/L Total Protein (6.3-8.2) G/DL Albumin (3.5-5.0) g/dL Globulin (2.2-3.9) gm/dL Albumin/Globulin Ratio (1.0-2.1) Vancomycin Trough (5.0-10.0) ug/mL HIV 1&2 Antibody Screen (NEGATIVE) Ur L.pneumophila Ag Negative (NEGATIVE) Laboratory Results - last 24 hr 08/03/18 08/05/18 08/05/18 17:14 04:29 06:00 WBC RBC Hgb Hct MCV MCH MCHC RDW Plt Count MPV Neut % (Auto) Lymph % (Auto) Pitt % (Auto) Eos % (Auto) Baso % (Auto) Neut # (Auto) Lymph # (Auto) Pitt # (Auto) Eos # (Auto) Baso # (Auto) pCO2 40 pO2 98 HCO3 28.8 H ABG pH 7.47 H ABG Total CO2 30.3 H ABG O2 Saturation 97.9 ABG O2 Content 13.1 L ABG Base Excess 5.0 H ABG Hemoglobin ABG Carboxyhemoglobin 0.7 POC ABG HHb (Measured) 2.1 ABG Methemoglobin 1.1 ABG O2 Capacity Bridger Test A-a O2 Difference 280.0 Hgb O2 Saturation 96.0 Vent Mode Ac Mechanical Rate 14 FiO2 60 Tidal Volume PEEP Pressure Support Sodium Potassium Chloride Carbon Dioxide Anion Gap BUN Creatinine Est GFR ( Amer) Est GFR (Non-Af Amer) POC Glucose (mg/dL) Random Glucose Calcium Phosphorus Magnesium Total Bilirubin GGT 72 AST ALT Alkaline Phosphatase Total Protein Albumin Globulin Albumin/Globulin Ratio Vancomycin Trough HIV 1&2 Antibody Screen Ur L.pneumophila Ag Negative 08/05/18 08/05/18 08/05/18 11:15 16:36 17:14 WBC RBC Hgb Hct MCV MCH MCHC RDW Plt Count MPV Neut % (Auto) Lymph % (Auto) Pitt % (Auto) Eos % (Auto) Baso % (Auto) Neut # (Auto) Lymph # (Auto) Pitt # (Auto) Eos # (Auto) Baso # (Auto) pCO2 pO2 HCO3 ABG pH ABG Total CO2 ABG O2 Saturation ABG O2 Content ABG Base Excess ABG Hemoglobin ABG Carboxyhemoglobin POC ABG HHb (Measured) ABG Methemoglobin ABG O2 Capacity Bridger Test A-a O2 Difference Hgb O2 Saturation Vent Mode Mechanical Rate FiO2 Tidal Volume PEEP Pressure Support Sodium Potassium Chloride Carbon Dioxide Anion Gap BUN Creatinine Est GFR ( Amer) Est GFR (Non-Af Amer) POC Glucose (mg/dL) 220 H 174 H Random Glucose Calcium Phosphorus Magnesium Total Bilirubin GGT AST ALT Alkaline Phosphatase Total Protein Albumin Globulin Albumin/Globulin Ratio Vancomycin Trough HIV 1&2 Antibody Screen Negative Ur L.pneumophila Ag 08/05/18 08/06/18 08/06/18 21:05 04:40 04:40 WBC 16.4 H RBC 3.59 L Hgb 9.3 L Hct 28.5 L MCV 79.5 L MCH 26.1 L MCHC 32.8 L RDW 15.4 H Plt Count 395 MPV 8.6 Neut % (Auto) 71.9 Lymph % (Auto) 17.6 L Pitt % (Auto) 9.1 Eos % (Auto) 0.4 Baso % (Auto) 1.0 Neut # (Auto) 11.8 H Lymph # (Auto) 2.9 Pitt # (Auto) 1.5 H Eos # (Auto) 0.1 Baso # (Auto) 0.2 pCO2 pO2 HCO3 ABG pH ABG Total CO2 ABG O2 Saturation ABG O2 Content ABG Base Excess ABG Hemoglobin ABG Carboxyhemoglobin POC ABG HHb (Measured) ABG Methemoglobin ABG O2 Capacity Bridger Test A-a O2 Difference Hgb O2 Saturation Vent Mode Mechanical Rate FiO2 Tidal Volume PEEP Pressure Support Sodium 141 Potassium 3.8 Chloride 106 Carbon Dioxide 26 Anion Gap 13 BUN 12 Creatinine 0.4 L Est GFR ( Amer) > 60 Est GFR (Non-Af Amer) > 60 POC Glucose (mg/dL) 234 H Random Glucose 268 H Calcium 9.0 Phosphorus 3.2 Magnesium 1.9 Total Bilirubin 0.4 GGT AST 113 H ALT 146 H D Alkaline Phosphatase 191 H D Total Protein 6.8 Albumin 3.2 L Globulin 3.7 Albumin/Globulin Ratio 0.9 L Vancomycin Trough HIV 1&2 Antibody Screen Ur L.pneumophila Ag 08/06/18 08/06/18 08/06/18 04:40 04:52 05:17 WBC RBC Hgb Hct MCV MCH MCHC RDW Plt Count MPV Neut % (Auto) Lymph % (Auto) Pitt % (Auto) Eos % (Auto) Baso % (Auto) Neut # (Auto) Lymph # (Auto) Pitt # (Auto) Eos # (Auto) Baso # (Auto) pCO2 40 pO2 83 HCO3 28.8 H ABG pH 7.47 H ABG Total CO2 30.3 H ABG O2 Saturation 97.7 ABG O2 Content 12.4 L ABG Base Excess 5.0 H ABG Hemoglobin 9.1 L ABG Carboxyhemoglobin 0.6 POC ABG HHb (Measured) 2.3 ABG Methemoglobin 0.8 ABG O2 Capacity 12.7 L Bridger Test Yes A-a O2 Difference 295.0 Hgb O2 Saturation 96.3 Vent Mode Mechanical Rate 14 FiO2 60.0 Tidal Volume 450 PEEP 5 Pressure Support Sodium Potassium Chloride Carbon Dioxide Anion Gap BUN Creatinine Est GFR ( Amer) Est GFR (Non-Af Amer) POC Glucose (mg/dL) 264 H Random Glucose Calcium Phosphorus Magnesium Total Bilirubin GGT AST ALT Alkaline Phosphatase Total Protein Albumin Globulin Albumin/Globulin Ratio Vancomycin Trough 11.6 H HIV 1&2 Antibody Screen Ur L.pneumophila Ag Fingerstick Blood Sugar Results: 264 Review of Systems - Psychiatric Psychiatric: As Per HPI Critical Care Progress Note - Nutrition Nutrition: Nutrition Category Date Time Status NPO Diet [DIET] Diets 08/04/18 Breakfast Active Assessment/Plan - Assessment and Plan (Free Text) Assessment: 62 yo F with pmhx of HTN, DM2, Hypothyroid, GERD, schizophrenia s/p fall in snf, admitted for sepsis secondary to pneumonia, experienced a cardiac arrest. Plan: 1) Cardiac arrest -ROSC -EKG NSR -troponin: neg x4 2) Sepsis - Lactic acid: 1.9 from 3.2 on admission - leukocytes: 16.4 - bcx: no growth for 48 hrs; Urine cx: negative, final 3) Seizure activity -Dr. Keller: focal seizure on EEG; keppra 1000 mg BID; D/C Clozapine -CT head: No intracranial hemorrhage or mass effect. Cerebral atrophy and similar chronic microvascular ischemic changes. Paranasal sinus inflammatory changes-interval air-fluid level/sinusitis sphenoid sinus now noted. -Brain MRI 4) Pleural effusion/Pneumonia -Airbone isolation -hx of positive PPD, living in snf -Daughter denies hx of TB or close contacts/recent travel -legionella: negative -CXR: 08/06: Improving R pleural effusion and R lower lobe atelectasis/pneumonia -Continue: IVABX: Vanc, zosyn -Pending: Quant gold and AFP cultures x3 5) Intubated - Mechanical ventilation 6) Elevated Transaminitis - AST: 103 > 113 - ALT: 99 > 146 - Alk Phos: 148 > 191 - GGT: 72 7) DM 2 - SS Insulin and Januvia 8) Hypothyroid - Levothyroxine [address] Obdulio Naranjo MD PGY2 <Dillon Mak - Last Filed: 08/06/18 17:22> CCU Subjective - Physician Review Subjective (Free Text): Attestation: Patient seen and examined at the bedside with Resident Dr. Justus Naranjo; and I agree with his outline of plans and management documented above and below, reflecting my review of all applicable clinical data, and participation in the care of the patient throughout the day in ICU; today, August 06, 2018.
[2018-08-06] MEDS: Multivitamin With Minerals Tab PO SCH (08:16)
[2018-08-06] MEDS: Aspirin 325 mg EC Tablets PO SCH (08:17)
[2018-08-06] MEDS: Enoxaparin 40 mg Syringe SC SCH (08:17)
[2018-08-06] MEDS: Azithromycin 500 MG in Sodium Chloride 0.9% 250 ML IVPB SCH (08:18)
[2018-08-06] MEDS: Pantoprazole 20 mg EC Tab PO SCH (08:19)
--- NOTE | 2018-08-06 08:41 | RAD ---
Date of service: 08/06/2018 HISTORY: vented COMPARISON: 08/05/2018 FINDINGS: The tracheostomy tube terminates in the mid trachea. The nasogastric tube terminates in the stomach. LUNGS: There is redemonstration of airspace disease in the right lower lobe with interval improved aeration in the lung. The left lung is clear. PLEURA: Interval mild improvement in right pleural effusion. The left lung is clear. CARDIOVASCULAR: The heart is normal in size. No aortic atherosclerotic calcification present. OSSEOUS STRUCTURES: Within normal limits for the patient's age. VISUALIZED UPPER ABDOMEN: Normal. OTHER FINDINGS: None. IMPRESSION: Improving right pleural effusion and right lower lobe atelectasis/pneumonia.
--- NOTE | 2018-08-06 11:17 | CP.PCM.PN ---
Addendum entered and electronically signed by Kameron Beckwith MD 08/06/18 20:23: Patient was seen and examined bedside . All chart and clinical data reviewed. Case discussed with resident . Agree with resident assessment and plan .62 y/o female with PMH schizophrenia on multiple psych meds brought from [facility] for evaluation of fall. In ER found to be febrile with elevated lactic acid, bandemia and WBC count . She was diagnosed with sepsis most likely secondary to CAP /Pneumonia and started on IV Vanco , zosyn and zithromax Patient was found unresponsive by staff and code blue was initiated , intubated and transferred to ICU . Despite being off sedation noted to be not responsive . CT head showed no acute pathology but EEG showed Status epilepticus. She was given IV Ativan and loaded with Keppra and Neurology was consulted Today still unresponsive , opens her eyes to name calling but not following any commands.Afebrile , BP labile , intubated on PRVC AC mode 14/450/5/ 60 % ABG 40/83/29/7.47 EEG repeated today showing diffuse cortical dysfunction Will order MRI brain Continue Keppra vent management had long discussion with daughter and son today Dx Tocix metabolic encephalopathy Status epilepticus/ complex partial seizures -- continue Keppra Sepsis Multilobar CAP -- on IV Vanco, Zosyn and zithromax since patient lives in a [facility]. Unresponsiveness most likely related to seizure activity -- unlikely cardiac event Fluid overload / anasarca-- continue diuresis. Given lasix 40 mg Iv x 2 today. Repeat BMP Hypothyroidism DM -- uncontrolled . on Levemir and OGT feeding Hypertension -labile . continue home meds Schizophrenia-- on psych meds Anemia- most likely chronic Original Note: Subjective - Date & Time of Evaluation Date of Evaluation: 08/06/18 Time of Evaluation: 10:20 - Subjective Subjective: Pt was seen/examined this am at bedside; overnight she had fever to 100.5, this morning is afebrile. She continues to be intubated and on the ventilator. She moves all 4 extremities spontaneously, and opens her eyes but does not follow commands. Objective - Vital Signs/Intake and Output Vital Signs (last 24 hours): Temp Pulse Resp BP Pulse Ox 98.9 F 67 20 156/70 H 97 08/06/18 08:00 08/06/18 10:00 08/06/18 10:00 08/06/18 10:00 08/06/18 10:00 Intake and Output: 08/06/18 08/06/18 06:59 18:59 Intake Total 2420 870 Output Total 800 Balance 1620 870 - Medications Medications: Current Medications Acetaminophen (Tylenol 325mg Tab) 650 mg PO Q6 PRN PRN Reason: Fever >100.4 F Last Admin: 08/05/18 05:35 Dose: 650 mg Albuterol Sulfate (Albuterol 0.083% Inhal Veronica (2.5 Mg/3 Ml) Ud) 2.5 mg INH RQ6 [facility] Last Admin: 08/06/18 07:59 Dose: 2.5 mg Amlodipine Besylate (Norvasc) 10 mg PO DAILY [facility] Last Admin: 08/06/18 05:45 Dose: 10 mg Aspirin (Ecotrin) 325 mg PO DAILY [facility] Last Admin: 08/06/18 08:17 Dose: 325 mg Atorvastatin Calcium (Lipitor) 10 mg PO HS [facility] Last Admin: 08/05/18 21:32 Dose: 10 mg Carvedilol (Coreg) 25 mg PO BID [facility] Last Admin: 08/06/18 08:17 Dose: 25 mg Dextrose (Dextrose 50% Inj) 0 ml IV STAT PRN; Protocol PRN Reason: Hypoglycemia Protocol Dextrose (Glutose 15) 0 gm PO ONCE PRN; Protocol PRN Reason: Hypoglycemia Protocol Divalproex Sodium (Depakote Er(Once Daily)) 1,250 mg PO HS [facility] Last Admin: 08/03/18 21:56 Dose: 1,250 mg Enoxaparin Sodium (Lovenox) 40 mg SC DAILY [facility]; Protocol Last Admin: 08/06/18 08:17 Dose: 40 mg Escitalopram Oxalate (Lexapro) 10 mg PO HS [facility] Last Admin: 08/03/18 21:31 Dose: 10 mg Fluticasone Propionate (Flonase) 2 spr ANIKA DAILY [facility] Last Admin: 08/06/18 08:18 Dose: Not Given Glucagon (Glucagen Diagnostic Kit) 0 mg IM STAT PRN; Protocol PRN Reason: Hypoglycemia Protocol Azithromycin 500 mg/ Sodium (Chloride) 250 mls @ 250 mls/hr IVPB DAILY [facility]; Protocol Last Admin: 08/06/18 08:18 Dose: 250 mls/hr Vancomycin HCl 1 gm/ Sodium (Chloride) 250 mls @ 250 mls/hr IVPB Q12H [facility]; Protocol Last Admin: 08/05/18 23:30 Dose: 250 mls/hr Piperacillin Sod/Tazobactam (Sod 3.375 gm/ Sodium Chloride) 100 mls @ 100 mls/hr IVPB Q8 [facility]; Protocol Last Admin: 08/06/18 08:17 Dose: 100 mls/hr Potassium Chloride 20 meq/ (Sodium Chloride) 1,010 mls @ 40 mls/hr IV .Q24H [facility] Stop: 08/07/18 03:12 Last Admin: 08/06/18 03:54 Dose: 40 mls/hr Levetiracetam 1,000 mg/ Sodium (Chloride) 110 mls @ 110 mls/hr IVPB Q12@0300,1500 [facility] Ibuprofen (Motrin Tab) 600 mg PO Q6 PRN PRN Reason: Fever >100.4 F Insulin Detemir (Levemir) 15 units SC [facility] Last Admin: 08/05/18 21:40 Dose: 15 u Insulin Human Lispro (Humalog) 0 units SC [facility]; Protocol Last Admin: 08/06/18 06:46 Dose: 3 units Levothyroxine Sodium (Synthroid) 50 mcg PO DAILY@0630 [facility] Last Admin: 08/06/18 06:01 Dose: 50 mcg Losartan Potassium (Cozaar) 50 mg PO DAILY [facility] Last Admin: 08/06/18 08:16 Dose: 50 mg Multivitamins/Minerals (Therapeutic-M Tab) 1 tab PO DAILY [facility] Last Admin: 08/06/18 08:16 Dose: 1 tab Pantoprazole Sodium (Protonix Ec Tab) 20 mg PO DAILY [facility] Last Admin: 08/06/18 08:19 Dose: 20 mg Sitagliptin Phosphate (Januvia) 100 mg PO [facility] Last Admin: 08/05/18 21:32 Dose: 100 mg - Labs Labs: 08/06/18 04:40 08/06/18 04:40 PT 12.2 Seconds (9.8-13.1) 08/04/18 00:30 INR 1.1 08/04/18 00:30 APTT 31.5 Seconds (25.6-37.1) 08/02/18 22:20 - Constitutional Appears: No Acute Distress, Chronically Ill - Head Exam Head Exam: NORMOCEPHALIC - ENT Exam Additional comments: intibated, on ventilator - Respiratory Exam Respiratory Exam: NORMAL BREATHING PATTERN (good air movement bilaterally with coarse breath sounds) - Cardiovascular Exam Cardiovascular Exam: REGULAR RHYTHM - GI/Abdominal Exam GI & Abdominal Exam: Soft, Normal Bowel Sounds - Extremities Exam Extremities Exam: Normal Capillary Refill. absent: Pedal Edema Additional comments: trace pitting edema in upper ext - Neurological Exam Neurological Exam: absent: Alert, Oriented x3 Additional comments: intubated, moves all 4 ext spontaneously but not purposefully, opens eyes spont aneously Assessment and Plan - Assessment and Plan (Free Text) Assessment: 62 yo female from a [facility], with hx of DM II, schizophrenia and HTN; initially admitted for sepsis and pneumonia. Initial labs were significant for leukocytosis with bandemia; CXR showed atelectasis vs infiltrate and pt was started on vancomycin, zosyn and zithromax IV. During the admission, pt was found to be bradycardic and became unresponsive. Code Blue was called for suspected Pulseless Electrical Activity; compressions were done and ROSC was achieved after 3 rounds of epinephrine. She was then transferred to ICU. When weaned off sedation, mental status changes appreciated per family when compared to her baseline. Neurology was consulted and EEG was ordered, which showed left frontal focal seizures. Plan: Cardiac/Respiratory Failure -s/p Code Blue with ROSC after 3 rounds of epinephrine -s/p intubation and sedation; currently still intubated but off sedation -EKG wnl and troponin neg x2 -Pulmonary on board Left frontal focal seizures -As seen on EEG; as per neuro pts infection and antipsychotic lowered seizure threshold - s/p Ativan 4 mg - Keppra 1000 mg Q12 - Clozapine discontinued - Neuro on board Pneumonia, likely bacterial - CXR significant for for Interval patchy atelectasis or infiltrate right base and left perihilar/medial basilar distributions, as well as pleural effusions - ID on board; continue abx: azithromycin, vancomycin and zosyn - Blood cultures pending final, prelim negative - Urine culture no growth - Legionella negative - Pulmonary on board, pending recs - 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, QF gold pending Sepsis -Leukocytosis with bandemia on admission -Likely secondary to pneumonia -Continue with IV antibiotics as above -ID on board Anasarca -Likely secondary to fluid overloaded -IV lasix given 40mg x 2 yesterday; continue 40 mg Lasix BID -Strict I&Os -Renal function stable Hypothyrodism -Chronic, uncontrolled -Levothyroxine 50mcg daily DM -Chronic -Metformin on hold, continue with other home meds -Insulin coverage scale and hypoglycemia protocol -Hypoglycemia protocol HTN -Chronic -Continue with home meds Schizophrenia -Chronic -Home meds held for now -Depakote levels normal DVT prophylaxis -Lovenox SQ
--- NOTE | 2018-08-06 12:59 | PCM.EEG ---
Electroencephalogram Report - Electroencephalogram Report Procedure Date: 08/05/18 Medication: Keppra, Insulin, lasix Interpretation: Technical Information: This was a 16-channel EEG, 1-channel EKG , performed using an [employer] machine., electrodes were applied according to the 10/20 international placement system, impedances were less than 5 K Ohm. INDICATION; alter mental status EEG Detail: During resting wakefulness there was a poorly developed symmetric posterior dominant rhythm at 7 Hz, 30-50 uV, which was reactive to eye opening and closing. Drowsiness was associated with fragmentation of the posterior dominant rhythm and with slow roving eye movements. Sleep was not seen. There were occasional bursts of bi frontal paroxysmal activity at 7 to 8 Hz, lasting less than 1 second, this was seen during wakefulness and sleep. Hyperventilation was not performed. Photic stimulation was performed and there were no changes in the record. ECG was associated with a normal sinus rhythm. Impression: This is an abnormal EEG record that demonstrate the presence of a mild to moderate non specific diffuse disturbance of cortical activity, this is in keeping with a diffuse clarke matter dysfunction. These findings do not support a specific etiology.
[2018-08-06] MEDS: levETIRAcetam 1,000 MG in Sodium Chloride 0.9% 100 ML IVPB SCH (15:05)
--- NOTE | 2018-08-06 15:59 | CP.PCM.PN ---
Subjective - Date & Time of Evaluation Date of Evaluation: 08/06/18 Time of Evaluation: 15:54 - Subjective Subjective: Mrs. Ahumada was seen and examined at bedside today in the ICU. She continues to be intubated, off sedation, non-responsive. She was loaded with Keppra yesterday for possible seizure activity. EEG report now shows only diffuse cortical dysfunction. No seizures. Objective - Vital Signs/Intake and Output Vital Signs (last 24 hours): Temp Pulse Resp BP Pulse Ox 99.4 F 63 17 142/68 94 L 08/06/18 12:00 08/06/18 14:00 08/06/18 14:00 08/06/18 14:00 08/06/18 14:00 Intake and Output: 08/06/18 08/06/18 06:59 18:59 Intake Total 2420 1310 Output Total 800 Balance 1620 1310 - Medications Medications: Current Medications Acetaminophen (Tylenol 325mg Tab) 650 mg PO Q6 PRN PRN Reason: Fever >100.4 F Last Admin: 08/05/18 05:35 Dose: 650 mg Albuterol Sulfate (Albuterol 0.083% Inhal Veronica (2.5 Mg/3 Ml) Ud) 2.5 mg INH RQ6 [facility] Last Admin: 08/06/18 13:23 Dose: 2.5 mg Amlodipine Besylate (Norvasc) 10 mg PO DAILY [facility] Last Admin: 08/06/18 05:45 Dose: 10 mg Aspirin (Ecotrin) 325 mg PO DAILY [facility] Last Admin: 08/06/18 08:17 Dose: 325 mg Atorvastatin Calcium (Lipitor) 10 mg PO HS [facility] Last Admin: 08/05/18 21:32 Dose: 10 mg Carvedilol (Coreg) 25 mg PO BID [facility] Last Admin: 08/06/18 08:17 Dose: 25 mg Dextrose (Dextrose 50% Inj) 0 ml IV STAT PRN; Protocol PRN Reason: Hypoglycemia Protocol Dextrose (Glutose 15) 0 gm PO ONCE PRN; Protocol PRN Reason: Hypoglycemia Protocol Divalproex Sodium (Depakote Er(Once Daily)) 1,250 mg PO HS [facility] Last Admin: 08/03/18 21:56 Dose: 1,250 mg Enoxaparin Sodium (Lovenox) 40 mg SC DAILY [facility]; Protocol Last Admin: 11/01/18 08:17 Dose: 40 mg Escitalopram Oxalate (Lexapro) 10 mg PO HS [facility] Last Admin: 08/03/18 21:31 Dose: 10 mg Fluticasone Propionate (Flonase) 2 spr ANIKA DAILY [facility] Last Admin: 08/06/18 08:18 Dose: Not Given Furosemide (Lasix) 40 mg IVP BID [facility] Last Admin: 08/06/18 13:42 Dose: 40 mg Glucagon (Glucagen Diagnostic Kit) 0 mg IM STAT PRN; Protocol PRN Reason: Hypoglycemia Protocol Azithromycin 500 mg/ Sodium (Chloride) 250 mls @ 250 mls/hr IVPB DAILY [facility]; Protocol Last Admin: 08/06/18 08:18 Dose: 250 mls/hr Vancomycin HCl 1 gm/ Sodium (Chloride) 250 mls @ 250 mls/hr IVPB Q12H [facility]; Protocol Last Admin: 08/06/18 11:00 Dose: 250 mls/hr Piperacillin Sod/Tazobactam (Sod 3.375 gm/ Sodium Chloride) 100 mls @ 100 mls/hr IVPB Q8 [facility]; Protocol Last Admin: 08/06/18 08:17 Dose: 100 mls/hr Potassium Chloride 20 meq/ (Sodium Chloride) 1,010 mls @ 40 mls/hr IV .Q24H [facility] Stop: 08/07/18 03:12 Last Admin: 08/06/18 03:54 Dose: 40 mls/hr Levetiracetam 1,000 mg/ Sodium (Chloride) 110 mls @ 110 mls/hr IVPB Q12@0300,1500 [facility] Last Admin: 08/06/18 15:05 Dose: 110 mls/hr Ibuprofen (Motrin Tab) 600 mg PO Q6 PRN PRN Reason: Fever >100.4 F Insulin Detemir (Levemir) 15 units SC HS [facility] Last Admin: 08/05/18 21:40 Dose: 15 u Insulin Human Lispro (Humalog) 0 units SC [facility]; Protocol Last Admin: 08/06/18 11:30 Dose: 4 units Levothyroxine Sodium (Synthroid) 50 mcg PO DAILY@0630 [facility] Last Admin: 08/06/18 06:01 Dose: 50 mcg Losartan Potassium (Cozaar) 50 mg PO DAILY [facility] Last Admin: 08/06/18 08:16 Dose: 50 mg Multivitamins/Minerals (Therapeutic-M Tab) 1 tab PO DAILY [facility] Last Admin: 08/06/18 08:16 Dose: 1 tab Pantoprazole Sodium (Protonix Ec Tab) 20 mg PO DAILY [facility] Last Admin: 08/06/18 08:19 Dose: 20 mg Sitagliptin Phosphate (Januvia) 100 mg PO HS [facility] Last Admin: 08/05/18 21:32 Dose: 100 mg - Labs Labs: 08/06/18 04:40 08/06/18 04:40 PT 12.2 Seconds (9.8-13.1) 08/04/18 00:30 INR 1.1 08/04/18 00:30 APTT 31.5 Seconds (25.6-37.1) 08/02/18 22:20 - Neurological Exam Additional comments: Obtunded, responds to voice by opening eyes, responds to pain by withdrawing. GCS = 6T Assessment and Plan (1) Localization-related (focal) (partial) symptomatic epilepsy and epileptic syndromes with complex partial seizures, intractable, with status epilepticus Status: Resolved (2) Toxic metabolic encephalopathy Assessment & Plan: Continue treating underlying cause. Will rule out encephalitis with MRI brain with and without contrast. Status: Acute
[2018-08-06] MEDS ORDERED: Gadodiamide 287 MG/ML VIAL (15ML) IV ONE (16:31)
[2018-08-06] MEDS: Insulin Detemir 100 Units/ml Inj SC SCH (21:23)
--- NOTE | 2018-08-06 22:30 | CP.PCM.PN ---
Subjective - Date & Time of Evaluation Date of Evaluation: 09/05/18 Time of Evaluation: 18:00 - Subjective Subjective: Acute Resp Failure Aspiration Pneumonia Anoxic Encephalopathy Cardiac Arrest VSS Stable Head: Neg adeno Pos KYRA. Heart RRR, NS1S2 Neg M Lungs: some scattered rhonchi No C,C,E Neuro: Non focal. Opens eyes; but does not localize. Cont MV, monitor ABG's. Would not attempt to liberate from MV until fully awake and following commands. May need a Trach and PEG if Neuro status doesn't improve. Cont IV Abx, monitor temp curve, cultures, and WBC #. Neuro consult/f/u. Cont care as per ICU. Signing out of case; please re consult if condition changes. Objective - Vital Signs/Intake and Output Vital Signs (last 24 hours): Temp Pulse Resp BP Pulse Ox 99.5 F 63 18 157/70 H 95 08/06/18 18:00 08/06/18 18:00 08/06/18 18:00 08/06/18 20:24 08/06/18 18:00 Intake and Output: 08/06/18 08/07/18 18:59 06:59 Intake Total 2000 Output Total 2700 Balance -700 - Medications Medications: Current Medications Acetaminophen (Tylenol 325mg Tab) 650 mg PO Q6 PRN PRN Reason: Fever >100.4 F Last Admin: 08/05/18 05:35 Dose: 650 mg Albuterol Sulfate (Albuterol 0.083% Inhal Veronica (2.5 Mg/3 Ml) Ud) 2.5 mg INH RQ6 [facility] Last Admin: 08/06/18 19:45 Dose: 2.5 mg Amlodipine Besylate (Norvasc) 10 mg PO DAILY [facility] Last Admin: 08/06/18 05:45 Dose: 10 mg Aspirin (Ecotrin) 325 mg PO DAILY [facility] Last Admin: 08/06/18 08:17 Dose: 325 mg Atorvastatin Calcium (Lipitor) 10 mg PO HS [facility] Last Admin: 08/06/18 21:22 Dose: 10 mg Carvedilol (Coreg) 25 mg PO BID [facility] Last Admin: 08/06/18 16:20 Dose: 25 mg Dextrose (Dextrose 50% Inj) 0 ml IV STAT PRN; Protocol PRN Reason: Hypoglycemia Protocol Dextrose (Glutose 15) 0 gm PO ONCE PRN; Protocol PRN Reason: Hypoglycemia Protocol Divalproex Sodium (Depakote Er(Once Daily)) 1,250 mg PO HS [facility] Last Admin: 08/03/18 21:56 Dose: 1,250 mg Enoxaparin Sodium (Lovenox) 40 mg SC DAILY [facility]; Protocol Last Admin: 08/06/18 08:17 Dose: 40 mg Escitalopram Oxalate (Lexapro) 10 mg PO HS [facility] Last Admin: 08/03/18 21:31 Dose: 10 mg Fluticasone Propionate (Flonase) 2 spr ANIKA DAILY [facility] Last Admin: 08/06/18 08:18 Dose: Not Given Furosemide (Lasix) 40 mg IVP BID [facility] Last Admin: 08/06/18 16:20 Dose: 40 mg Glucagon (Glucagen Diagnostic Kit) 0 mg IM STAT PRN; Protocol PRN Reason: Hypoglycemia Protocol Azithromycin 500 mg/ Sodium (Chloride) 250 mls @ 250 mls/hr IVPB DAILY [facility]; Protocol Last Admin: 08/06/18 08:18 Dose: 250 mls/hr Vancomycin HCl 1 gm/ Sodium (Chloride) 250 mls @ 250 mls/hr IVPB Q12H [facility]; Protocol Last Admin: 08/06/18 22:20 Dose: 250 mls/hr Piperacillin Sod/Tazobactam (Sod 3.375 gm/ Sodium Chloride) 100 mls @ 100 mls/hr IVPB Q8 [facility]; Protocol Last Admin: 08/06/18 16:21 Dose: 100 mls/hr Potassium Chloride 20 meq/ (Sodium Chloride) 1,010 mls @ 40 mls/hr IV .Q24H [facility] Stop: 08/07/18 03:12 Last Admin: 08/06/18 03:54 Dose: 40 mls/hr Levetiracetam 1,000 mg/ Sodium (Chloride) 110 mls @ 110 mls/hr IVPB Q12@0300,1500 [facility] Last Admin: 08/06/18 15:05 Dose: 110 mls/hr Ibuprofen (Motrin Tab) 600 mg PO Q6 PRN PRN Reason: Fever >100.4 F Insulin Detemir (Levemir) 15 units SC HS [facility] Last Admin: 08/06/18 21:23 Dose: 15 u Insulin Human Lispro (Humalog) 0 units SC [facility]; Protocol Last Admin: 08/06/18 21:24 Dose: 3 units Levothyroxine Sodium (Synthroid) 50 mcg PO DAILY@0630 [facility] Last Admin: 08/06/18 06:01 Dose: 50 mcg Lorazepam (Ativan) 2 mg IVP Q6 PRN PRN Reason: Agitation Last Admin: 08/06/18 16:43 Dose: 2 mg Losartan Potassium (Cozaar) 50 mg PO DAILY [facility] Last Admin: 08/06/18 08:16 Dose: 50 mg Multivitamins/Minerals (Therapeutic-M Tab) 1 tab PO DAILY [facility] Last Admin: 08/06/18 08:16 Dose: 1 tab Pantoprazole Sodium (Protonix Ec Tab) 20 mg PO DAILY [facility] Last Admin: 08/06/18 08:19 Dose: 20 mg Sitagliptin Phosphate (Januvia) 100 mg PO HS [facility] Last Admin: 08/06/18 21:22 Dose: 100 mg - Labs Labs: 08/06/18 04:40 08/06/18 04:40 PT 12.2 Seconds (9.8-13.1) 08/04/18 00:30 INR 1.1 08/04/18 00:30 APTT 31.5 Seconds (25.6-37.1) 08/02/18 22:20
[2018-08-07] MEDS: Piperacillin/Tazobact 3.375 GM in Sodium Chloride 0.9% 100 ML IVPB SCH ×3 (01:02→16:07)
[2018-08-07] MEDS: Albuterol 0.083% Inhal Sol (2.5 mg/3 mL) UD INH SCH ×3 (01:20→19:34)
[2018-08-07] MEDS: levETIRAcetam 1,000 MG in Sodium Chloride 0.9% 100 ML IVPB SCH ×2 (02:54→14:11)
[2018-08-07 05:53] LABS: HEMOGLOBIN 8.8 g/dL (12.0-16.0); MEAN CELL VOLUME 79.2 fl (81.0-99.0); MEAN CORPUSCULAR HEMOGLOBIN 26.1 pg (27.0-31.0); MEAN CORPUSCULAR HGB CONC 32.9 g/dL (33.0-37.0); RBC 3.39 Mil/uL (3.80-5.20); RED CELL DISTRIBUTION WIDTH 15.9 % (11.5-14.5); WHITE BLOOD COUNT 12.2 K/uL (4.8-10.8)
[2018-08-07 05:58] LABS: ABG ALLEN TEST YES; ARTERIAL BLOOD GAS HCO3 31.7 mmol/L (21-28); ARTERIAL BLOOD GAS O2 CAPACITY 12.7 mL/dL (16-24); ARTERIAL BLOOD GAS O2 CONTENT 12.6 ML/dL (15-23); ARTERIAL BLOOD GAS PCO2 36 mm/Hg (35-45); ARTERIAL BLOOD GAS PH 7.55 (7.35-7.45); ARTERIAL BLOOD GAS PO2 119 mm/Hg (80-100); ARTERIAL BLOOD GAS TCO2 32.6 mmol/L (22-28)
[2018-08-07 06:04] LABS: ALB/GLOB RATIO 0.9 (1.0-2.1); ALBUMIN 3.1 g/dL (3.5-5.0); ALT/SGPT 118 U/L (9-52); AST/SGOT 78 U/L (14-36); BLOOD UREA NITROGEN 14 mg/dl (7-17); CALCIUM 9.1 mg/dL (8.4-10.2); GFR NON-AFRICAN AMERICAN > 60
[2018-08-07] MEDS: Levothyroxine 50 MCG TAB PO SCH (06:20)
--- NOTE | 2018-08-07 08:07 | CP.CCUPN ---
<Zi Naranjo - Last Filed: 08/07/18 15:47> CCU Subjective - Physician Review Subjective (Free Text): Pt seen and evaluated at bedside. Mechanical ventilation. Pt progressively improving alertness and responsiveness. Daughter and son seen at bedside. CCU Objective - Vital Signs / Intake & Output Vital Signs (Last 4 hours): Vital Signs Temp Pulse Resp BP Pulse Ox 08/07/18 06:00 65 16 163/68 H 96 08/07/18 04:10 99.9 F H Intake and Output (Last 8hrs): Intake & Output 08/06/18 08/07/18 08/07/18 22:59 06:59 14:59 Intake Total 1040 700 Output Total 3200 850 Balance -2160 -150 Weight 196 lb 11.84 oz Intake: IV 200 160 Intake, Piggyback 100 Tube Feeding 340 240 Free Water Flush 400 300 Output: Urine 3200 850 Urethral (Ray) 3200 850 - Physical Exam Head: Positive for: Normocephalic Pupils: Positive for: Sluggish Conjunctiva: Positive for: Normal Ears: Positive for: Normal Mouth: Positive for: Moist Mucous Membranes (ETT tube in place, yellow secretions, OG tube) Nose (External): Positive for: Other Neck: Positive for: Normal Range of Motion Respiratory/Chest: Positive for: Good Air Exchange, Rhonchi. Negative for: Respiratory Distress, Rales Cardiovascular: Positive for: Regular Rate and Rhythm. Negative for: Murmurs Abdomen: Positive for: Distention, Normal Bowel Sounds Upper Extremity: Positive for: Edema (trace pitting in upper extremities bl), NORMAL PULSES, Capillary Refill < 2s Lower Extremity: Positive for: NORMAL PULSES, Capillary Refill < 2 s. Negative for: Edema Neurological: Positive for: Other (Eyes open spotnaneously, non verbal, withdra ws from pain) Skin: Positive for: Warm, Dry, Rashes Psychiatric: Positive for: Alert (intermittently), Lethargic. Negative for: Oriented x 3, Agitated - Medications Active Medications: Active Medications Generic Name Dose Route Start Last Admin Trade Name Freq PRN Reason Stop Dose Admin Acetaminophen 650 mg 08/03/18 03:33 08/05/18 05:35 Tylenol 325mg Tab PO 650 mg Q6 PRN Administration Fever >100.4 F Albuterol Sulfate 2.5 mg 08/03/18 02:00 08/07/18 07:49 Albuterol 0.083% Inhal Veronica (2.5 Mg/3 Ml) Ud INH 2.5 mg RQ6 LESLIE Administration Amlodipine Besylate 10 mg 08/03/18 09:00 08/06/18 05:45 Norvasc PO 10 mg DAILY LESLIE Administration Aspirin 325 mg 08/03/18 09:00 08/06/18 08:17 Ecotrin PO 325 mg DAILY LESLIE Administration Atorvastatin Calcium 10 mg 08/03/18 22:00 08/06/18 21:22 Lipitor PO 10 mg HS LESLIE Administration Carvedilol 25 mg 08/03/18 09:00 08/06/18 16:20 Coreg PO 25 mg BID LESLIE Administration Dextrose 0 ml 08/03/18 03:35 Dextrose 50% Inj IV STAT PRN Hypoglycemia Protocol Protocol Dextrose 0 gm 08/03/18 03:35 Glutose 15 PO ONCE PRN Hypoglycemia Protocol Protocol Divalproex Sodium 1,250 mg 08/03/18 22:00 08/03/18 21:56 Depakote Er(Once Daily) PO 1,250 mg HS LESLIE Administration Enoxaparin Sodium 40 mg 08/03/18 09:00 08/06/18 08:17 Lovenox SC 40 mg DAILY LESLIE Administration Protocol Escitalopram Oxalate 10 mg 08/03/18 22:00 08/03/18 21:31 Lexapro PO 10 mg HS LESLIE Administration Fluticasone Propionate 2 spr 08/03/18 09:00 08/06/18 08:18 Flonase ANIKA Not Given DAILY LESLIE Furosemide 40 mg 08/06/18 09:00 08/06/18 16:20 Lasix IVP 40 mg BID LESLIE Administration Glucagon 0 mg 08/03/18 03:35 Glucagen Diagnostic Kit IM STAT PRN Hypoglycemia Protocol Protocol Azithromycin 500 mg/ Sodium 250 mls @ 250 mls/hr 08/03/18 09:00 08/06/18 08:18 Chloride IVPB 250 mls/hr DAILY LESLIE Administration Protocol Vancomycin HCl 1 gm/ Sodium 250 mls @ 250 mls/hr 08/03/18 11:00 08/06/18 22:20 Chloride IVPB 250 mls/hr Q12H LESLIE Administration Protocol Piperacillin Sod/Tazobactam 100 mls @ 100 mls/hr 08/03/18 11:00 08/07/18 01:02 Sod 3.375 gm/ Sodium Chloride IVPB 100 mls/hr Q8 LESLIE Administration Protocol Levetiracetam 1,000 mg/ Sodium 110 mls @ 110 mls/hr 08/06/18 15:00 08/07/18 02:54 Chloride IVPB 110 mls/hr Q12@0300,1500 LESLIE Administration Ibuprofen 600 mg 08/03/18 13:30 08/07/18 04:10 Motrin Tab PO 600 mg Q6 PRN Administration Fever >100.4 F Insulin Detemir 15 units 08/03/18 22:00 08/06/18 21:23 Levemir SC 15 u HS LESLIE Administration Insulin Human Regular 0 units 08/07/18 11:30 Humulin R SC ACHS LESLIE Protocol Levothyroxine Sodium 50 mcg 08/04/18 06:30 08/07/18 06:20 Synthroid PO 50 mcg DAILY@0630 LESLIE Administration Lorazepam 2 mg 08/06/18 16:28 08/07/18 00:00 Ativan IVP 2 mg Q6 PRN Administration Agitation Losartan Potassium 50 mg 08/03/18 09:00 08/06/18 08:16 Cozaar PO 50 mg DAILY LESLIE Administration Multivitamins/Minerals 1 tab 08/03/18 09:00 08/06/18 08:16 Therapeutic-M Tab PO 1 tab DAILY LESLIE Administration Pantoprazole Sodium 20 mg 08/03/18 09:00 08/06/18 08:19 Protonix Ec Tab PO 20 mg DAILY LESLIE Administration Sitagliptin Phosphate 100 mg 08/03/18 22:00 08/06/18 21:22 Januvia PO 100 mg HS LESLIE Administration - Patient Studies Lab Studies: Microbiology Studies 08/02/18 22:05 Blood Culture - Preliminary Blood-Venous NO GROWTH AFTER 4 DAYS 08/02/18 22:10 Blood Culture - Preliminary Blood-Venous NO GROWTH AFTER 4 DAYS 08/03/18 16:41 Blood Culture - Preliminary Blood NO GROWTH AFTER 3 DAYS 08/03/18 16:31 Blood Culture - Preliminary Blood NO GROWTH AFTER 3 DAYS 08/06/18 08:21 Gram Stain - Final Sputum Induced Lab Studies 08/07/18 08/07/18 08/07/18 Range/Units 05:55 05:19 04:40 WBC (4.8-10.8) K/uL RBC (3.80-5.20) Mil/uL Hgb (12.0-16.0) g/dL Hct (34.0-47.0) % MCV (81.0-99.0) fl MCH (27.0-31.0) pg MCHC (33.0-37.0) g/dL RDW (11.5-14.5) % Plt Count (130-400) K/uL pCO2 36 (35-45) mm/Hg pO2 119 H (80-100) mm/Hg HCO3 31.7 H (21-28) mmol/L ABG pH 7.55 H (7.35-7.45) ABG Total CO2 32.6 H (22-28) mmol/L ABG O2 Saturation 99.0 H (95-98) % ABG O2 Content 12.6 L (15-23) ML/dL ABG Base Excess 8.6 H (-2.0-3.0) mmol/L ABG Hemoglobin 9.0 L (11.7-17.4) g/dL ABG Carboxyhemoglobin 0.8 (0.5-1.5) % POC ABG HHb (Measured) 1.0 (0.0-5.0) % ABG Methemoglobin 0.7 (0.0-3.0) % ABG O2 Capacity 12.7 L (16-24) mL/dL Bridger Test Yes A-a O2 Difference 264.0 mm/Hg Hgb O2 Saturation 97.6 (95.0-98.0) % Vent Mode A/c Mechanical Rate 14 FiO2 60.0 % Tidal Volume 450 PEEP 5 Sodium 140 (132-148) mmol/l Potassium 3.4 L (3.6-5.0) MMOL/L Chloride 98 (98-107) mmol/L Carbon Dioxide 31 H (22-30) mmol/L Anion Gap 14 (10-20) BUN 14 (7-17) mg/dl Creatinine 0.5 L (0.7-1.2) mg/dl Est GFR ( Amer) > 60 Est GFR (Non-Af Amer) > 60 POC Glucose (mg/dL) 269 H (65-110) mg/dL Random Glucose 282 H (65-105) mg/dL Calcium 9.1 (8.4-10.2) mg/dL Total Bilirubin 0.4 (0.2-1.3) mg/dl AST 78 H D (14-36) U/L ALT 118 H (9-52) U/L Alkaline Phosphatase 184 H (38-126) U/L Total Protein 6.6 (6.3-8.2) G/DL Albumin 3.1 L (3.5-5.0) g/dL Globulin 3.5 (2.2-3.9) gm/dL Albumin/Globulin Ratio 0.9 L (1.0-2.1) HIV 1&2 Ag/Ab, 4th Gen (Nonreactive) 08/07/18 08/06/18 08/06/18 Range/Units 04:40 21:15 16:44 WBC 12.2 H (4.8-10.8) K/uL RBC 3.39 L (3.80-5.20) Mil/uL Hgb 8.8 L (12.0-16.0) g/dL Hct 26.8 L (34.0-47.0) % MCV 79.2 L (81.0-99.0) fl MCH 26.1 L (27.0-31.0) pg MCHC 32.9 L (33.0-37.0) g/dL RDW 15.9 H (11.5-14.5) % Plt Count 423 H (130-400) K/uL pCO2 (35-45) mm/Hg pO2 (80-100) mm/Hg HCO3 (21-28) mmol/L ABG pH (7.35-7.45) ABG Total CO2 (22-28) mmol/L ABG O2 Saturation (95-98) % ABG O2 Content (15-23) ML/dL ABG Base Excess (-2.0-3.0) mmol/L ABG Hemoglobin (11.7-17.4) g/dL ABG Carboxyhemoglobin (0.5-1.5) % POC ABG HHb (Measured) (0.0-5.0) % ABG Methemoglobin (0.0-3.0) % ABG O2 Capacity (16-24) mL/dL Bridger Test A-a O2 Difference mm/Hg Hgb O2 Saturation (95.0-98.0) % Vent Mode Mechanical Rate FiO2 % Tidal Volume PEEP Sodium (132-148) mmol/l Potassium (3.6-5.0) MMOL/L Chloride (98-107) mmol/L Carbon Dioxide (22-30) mmol/L Anion Gap (10-20) BUN (7-17) mg/dl Creatinine (0.7-1.2) mg/dl Est GFR ( Amer) Est GFR (Non-Af Amer) POC Glucose (mg/dL) 251 H 279 H (65-110) mg/dL Random Glucose (65-105) mg/dL Calcium (8.4-10.2) mg/dL Total Bilirubin (0.2-1.3) mg/dl AST (14-36) U/L ALT (9-52) U/L Alkaline Phosphatase (38-126) U/L Total Protein (6.3-8.2) G/DL Albumin (3.5-5.0) g/dL Globulin (2.2-3.9) gm/dL Albumin/Globulin Ratio (1.0-2.1) HIV 1&2 Ag/Ab, 4th Gen (Nonreactive) 08/06/18 08/05/18 Range/Units 11:22 17:14 WBC (4.8-10.8) K/uL RBC (3.80-5.20) Mil/uL Hgb (12.0-16.0) g/dL Hct (34.0-47.0) % MCV (81.0-99.0) fl MCH (27.0-31.0) pg MCHC (33.0-37.0) g/dL RDW (11.5-14.5) % Plt Count (130-400) K/uL pCO2 (35-45) mm/Hg pO2 (80-100) mm/Hg HCO3 (21-28) mmol/L ABG pH (7.35-7.45) ABG Total CO2 (22-28) mmol/L ABG O2 Saturation (95-98) % ABG O2 Content (15-23) ML/dL ABG Base Excess (-2.0-3.0) mmol/L ABG Hemoglobin (11.7-17.4) g/dL ABG Carboxyhemoglobin (0.5-1.5) % POC ABG HHb (Measured) (0.0-5.0) % ABG Methemoglobin (0.0-3.0) % ABG O2 Capacity (16-24) mL/dL Bridger Test A-a O2 Difference mm/Hg Hgb O2 Saturation (95.0-98.0) % Vent Mode Mechanical Rate FiO2 % Tidal Volume PEEP Sodium (132-148) mmol/l Potassium (3.6-5.0) MMOL/L Chloride (98-107) mmol/L Carbon Dioxide (22-30) mmol/L Anion Gap (10-20) BUN (7-17) mg/dl Creatinine (0.7-1.2) mg/dl Est GFR ( Amer) Est GFR (Non-Af Amer) POC Glucose (mg/dL) 250 H (65-110) mg/dL Random Glucose (65-105) mg/dL Calcium (8.4-10.2) mg/dL Total Bilirubin (0.2-1.3) mg/dl AST (14-36) U/L ALT (9-52) U/L Alkaline Phosphatase (38-126) U/L Total Protein (6.3-8.2) G/DL Albumin (3.5-5.0) g/dL Globulin (2.2-3.9) gm/dL Albumin/Globulin Ratio (1.0-2.1) HIV 1&2 Ag/Ab, 4th Gen Nonreactive (Nonreactive) Laboratory Results - last 24 hr 08/05/18 08/06/18 08/06/18 17:14 11:22 16:44 WBC RBC Hgb Hct MCV MCH MCHC RDW Plt Count pCO2 pO2 HCO3 ABG pH ABG Total CO2 ABG O2 Saturation ABG O2 Content ABG Base Excess ABG Hemoglobin ABG Carboxyhemoglobin POC ABG HHb (Measured) ABG Methemoglobin ABG O2 Capacity Bridger Test A-a O2 Difference Hgb O2 Saturation Vent Mode Mechanical Rate FiO2 Tidal Volume PEEP Sodium Potassium Chloride Carbon Dioxide Anion Gap BUN Creatinine Est GFR ( Amer) Est GFR (Non-Af Amer) POC Glucose (mg/dL) 250 H 279 H Random Glucose Calcium Total Bilirubin AST ALT Alkaline Phosphatase Total Protein Albumin Globulin Albumin/Globulin Ratio HIV 1&2 Ag/Ab, 4th Gen Nonreactive 08/06/18 08/07/18 08/07/18 21:15 04:40 04:40 WBC 12.2 H RBC 3.39 L Hgb 8.8 L Hct 26.8 L MCV 79.2 L MCH 26.1 L MCHC 32.9 L RDW 15.9 H Plt Count 423 H pCO2 pO2 HCO3 ABG pH ABG Total CO2 ABG O2 Saturation ABG O2 Content ABG Base Excess ABG Hemoglobin ABG Carboxyhemoglobin POC ABG HHb (Measured) ABG Methemoglobin ABG O2 Capacity Bridger Test A-a O2 Difference Hgb O2 Saturation Vent Mode Mechanical Rate FiO2 Tidal Volume PEEP Sodium 140 Potassium 3.4 L Chloride 98 Carbon Dioxide 31 H Anion Gap 14 BUN 14 Creatinine 0.5 L Est GFR ( Amer) > 60 Est GFR (Non-Af Amer) > 60 POC Glucose (mg/dL) 251 H Random Glucose 282 H Calcium 9.1 Total Bilirubin 0.4 AST 78 H D ALT 118 H Alkaline Phosphatase 184 H Total Protein 6.6 Albumin 3.1 L Globulin 3.5 Albumin/Globulin Ratio 0.9 L HIV 1&2 Ag/Ab, 4th Gen 08/07/18 08/07/18 05:19 05:55 WBC RBC Hgb Hct MCV MCH MCHC RDW Plt Count pCO2 36 pO2 119 H HCO3 31.7 H ABG pH 7.55 H ABG Total CO2 32.6 H ABG O2 Saturation 99.0 H ABG O2 Content 12.6 L ABG Base Excess 8.6 H ABG Hemoglobin 9.0 L ABG Carboxyhemoglobin 0.8 POC ABG HHb (Measured) 1.0 ABG Methemoglobin 0.7 ABG O2 Capacity 12.7 L Bridger Test Yes A-a O2 Difference 264.0 Hgb O2 Saturation 97.6 Vent Mode A/c Mechanical Rate 14 FiO2 60.0 Tidal Volume 450 PEEP 5 Sodium Potassium Chloride Carbon Dioxide Anion Gap BUN Creatinine Est GFR ( Amer) Est GFR (Non-Af Amer) POC Glucose (mg/dL) 269 H Random Glucose Calcium Total Bilirubin AST ALT Alkaline Phosphatase Total Protein Albumin Globulin Albumin/Globulin Ratio HIV 1&2 Ag/Ab, 4th Gen Fingerstick Blood Sugar Results: 269 Critical Care Progress Note - Nutrition Nutrition: Nutrition Category Date Time Status NPO Diet [DIET] Diets 08/04/18 Breakfast Active Assessment/Plan - Assessment and Plan (Free Text) Assessment: 62 yo F with pmhx of HTN, DM2, Hypothyroid, GERD, schizophrenia s/p fall in prison, admitted for sepsis secondary to pneumonia, experienced a cardiac arrest. 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 -Continue: IVABX: Vanc, zosyn -Pending: Quant gold and AFP cultures -ID: Dr. Castorena: continue IV ABX 2) Intubated - Mechanical ventilation 3) Elevated Transaminitis -Improving - AST: 103 > 113 > 78 - ALT: 99 > 146 > 118 - Alk Phos: 148 > 191 > 184 - GGT: 72 4) Hypokalemia -3.4 -Kcl: 20 meq x2 5) DM 2 - SS Insulin increased to medium coverage - Januvia 6) Constipation -Lactulose [place] 7) Cardiac arrest -ROSC -EKG NSR -troponin: neg x4 8) Sepsis - Lactic acid: 1.9 from 3.2 on admission - leukocytes: 12.2 from 16.4 - bcx: no growth for 3 days; Urine cx: negative, final - afebrile 9) Seizure activity -Resolved -Dr. Keller: focal seizure on EEG; keppra 1000 mg BID; D/C Clozapine -CT head: No intracranial hemorrhage or mass effect. Cerebral atrophy and similar chronic microvascular ischemic changes. Paranasal sinus inflammatory changes-interval air-fluid level/sinusitis sphenoid sinus now noted. -Brain MRI: unable to be performed 2/2 body habitus. 10) Hypothyroid - Levothyroxine [address] Obdulio Naranjo MD PGY2 <Dillon Mak - Last Filed: 08/07/18 15:54> CCU Subjective - Physician Review Subjective (Free Text): Attestation: Patient seen and examined at the bedside with Resident Dr. Justus Naranjo; and I agree with his outline of plans and management documented above and below, reflecting my review of all applicable clinical data, and participation in the care of the patient throughout the day in ICU; today, August 07, 2018.
[2018-08-07] MEDS: Azithromycin 500 MG in Sodium Chloride 0.9% 250 ML IVPB SCH (08:13)
--- NOTE | 2018-08-07 08:24 | RAD ---
Date of service: 08/07/2018 HISTORY: intubated COMPARISON: Frontal chest 08/06/2018. FINDINGS: LUNGS: Endotracheal and nasogastric tubes are not significantly changed in position. Right basilar airspace disease unchanged as well as small right pleural effusion. Left lung remains PLEURA: Clear. CARDIOVASCULAR: No aortic atherosclerotic calcification present. Normal cardiac size. No pulmonary vascular congestion. OSSEOUS STRUCTURES: No significant abnormalities. VISUALIZED UPPER ABDOMEN: Normal. OTHER FINDINGS: None. IMPRESSION: No interval change in right basilar airspace disease and pleural effusion with the left lung remaining clear.
[2018-08-07] MEDS: Aspirin 325 mg EC Tablets PO SCH (08:34)
[2018-08-07] MEDS: Enoxaparin 40 mg Syringe SC SCH (08:35)
[2018-08-07] MEDS: Pantoprazole 20 mg EC Tab PO SCH (08:37)
[2018-08-07] MEDS: Multivitamin With Minerals Tab PO SCH (08:37)
[2018-08-07] MEDS ORDERED: Lactulose 10 gm/15 ml (Rectal Use) PR ONE (10:06)
[2018-08-07] MEDS: Insulin Regular 100 units/ml SC SCH ×3 (10:58→22:58)
--- NOTE | 2018-08-07 11:21 | CP.PCM.PN ---
<Yamila Abebe - Last Filed: 08/07/18 11:29> Subjective - Date & Time of Evaluation Date of Evaluation: 08/07/18 Time of Evaluation: 10:20 - Subjective Subjective: Pt was seen and examined this morning; continues to be intubated. Mental status unchanged. She moves all 4 extremities spontaneously, and opens her eyes but does not follow commands. MRI could not be done due to body habitus. Objective - Vital Signs/Intake and Output Vital Signs (last 24 hours): Temp Pulse Resp BP Pulse Ox 98.6 F 69 19 164/74 H 98 08/07/18 08:00 08/07/18 10:00 08/07/18 10:00 08/07/18 10:00 08/07/18 10:00 Intake and Output: 08/07/18 08/07/18 06:59 18:59 Intake Total 1050 890 Output Total 1350 Balance -300 890 - Medications Medications: Current Medications Acetaminophen (Tylenol 325mg Tab) 650 mg PO Q6 PRN PRN Reason: Fever >100.4 F Last Admin: 08/05/18 05:35 Dose: 650 mg Albuterol Sulfate (Albuterol 0.083% Inhal Veronica (2.5 Mg/3 Ml) Ud) 2.5 mg INH RQ6 [facility] Last Admin: 08/07/18 07:49 Dose: 2.5 mg Amlodipine Besylate (Norvasc) 10 mg PO DAILY [facility] Last Admin: 08/07/18 08:37 Dose: 10 mg Aspirin (Ecotrin) 325 mg PO DAILY [facility] Last Admin: 08/07/18 08:34 Dose: 325 mg Atorvastatin Calcium (Lipitor) 10 mg PO HS [facility] Last Admin: 08/06/18 21:22 Dose: 10 mg Carvedilol (Coreg) 25 mg PO BID [facility] Last Admin: 08/07/18 08:33 Dose: 25 mg Dextrose (Dextrose 50% Inj) 0 ml IV STAT PRN; Protocol PRN Reason: Hypoglycemia Protocol Dextrose (Glutose 15) 0 gm PO ONCE PRN; Protocol PRN Reason: Hypoglycemia Protocol Divalproex Sodium (Depakote Er(Once Daily)) 1,250 mg PO HS [facility] Last Admin: 08/03/18 21:56 Dose: 1,250 mg Enoxaparin Sodium (Lovenox) 40 mg SC DAILY [facility]; Protocol Last Admin: 08/07/18 08:35 Dose: 40 mg Escitalopram Oxalate (Lexapro) 10 mg PO HS [facility] Last Admin: 08/03/18 21:31 Dose: 10 mg Fluticasone Propionate (Flonase) 2 spr ANIKA DAILY [facility] Last Admin: 08/07/18 08:35 Dose: Not Given Furosemide (Lasix) 40 mg IVP BID [facility] Last Admin: 08/07/18 08:35 Dose: 40 mg Glucagon (Glucagen Diagnostic Kit) 0 mg IM STAT PRN; Protocol PRN Reason: Hypoglycemia Protocol Azithromycin 500 mg/ Sodium (Chloride) 250 mls @ 250 mls/hr IVPB DAILY [facility]; Protocol Last Admin: 08/07/18 08:13 Dose: 250 mls/hr Vancomycin HCl 1 gm/ Sodium (Chloride) 250 mls @ 250 mls/hr IVPB Q12H [facility]; Protocol Last Admin: 08/06/18 22:20 Dose: 250 mls/hr Piperacillin Sod/Tazobactam (Sod 3.375 gm/ Sodium Chloride) 100 mls @ 100 mls/hr IVPB Q8 [facility]; Protocol Last Admin: 08/07/18 08:13 Dose: 100 mls/hr Levetiracetam 1,000 mg/ Sodium (Chloride) 110 mls @ 110 mls/hr IVPB Q12@0300,1500 [facility] Last Admin: 08/07/18 02:54 Dose: 110 mls/hr Potassium Chloride (Potassium Chloride 20 Meq/100 Ml) 100 mls @ 50 mls/hr IVPB Q2 [facility] Stop: 08/07/18 15:59 Ibuprofen (Motrin Tab) 600 mg PO Q6 PRN PRN Reason: Fever >100.4 F Last Admin: 08/07/18 04:10 Dose: 600 mg Insulin Detemir (Levemir) 15 units SC HS [facility] Last Admin: 08/06/18 21:23 Dose: 15 u Insulin Human Regular (Humulin R) 0 units SC ACHS [facility]; Protocol Last Admin: 08/07/18 10:58 Dose: 3 units Levothyroxine Sodium (Synthroid) 50 mcg PO DAILY@0630 [facility] Last Admin: 08/07/18 06:20 Dose: 50 mcg Lorazepam (Ativan) 2 mg IVP Q6 PRN PRN Reason: Agitation Last Admin: 08/07/18 10:57 Dose: 2 mg Losartan Potassium (Cozaar) 50 mg PO DAILY [facility] Last Admin: 08/07/18 08:34 Dose: 50 mg Multivitamins/Minerals (Therapeutic-M Tab) 1 tab PO DAILY [facility] Last Admin: 08/07/18 08:37 Dose: 1 tab Pantoprazole Sodium (Protonix Ec Tab) 20 mg PO DAILY [facility] Last Admin: 08/07/18 08:37 Dose: 20 mg Sitagliptin Phosphate (Januvia) 100 mg PO HS [facility] Last Admin: 08/06/18 21:22 Dose: 100 mg - Labs Labs: 08/07/18 04:40 08/07/18 04:40 PT 12.2 Seconds (9.8-13.1) 08/04/18 00:30 INR 1.1 08/04/18 00:30 APTT 31.5 Seconds (25.6-37.1) 08/02/18 22:20 - Constitutional Appears: Chronically Ill - ENT Exam Additional comments: intubated, on ventilator - Respiratory Exam Respiratory Exam: absent: Respiratory Distress Additional comments: good air entry bilaterally - Cardiovascular Exam Cardiovascular Exam: REGULAR RHYTHM - GI/Abdominal Exam GI & Abdominal Exam: Soft. absent: Tenderness - Extremities Exam Extremities Exam: absent: Pedal Edema - Neurological Exam Neurological Exam: absent: Alert, Oriented x3 Additional comments: intubated, moves all 4 ext spontaneously but not purposefully, opens eyes spontaneously Assessment and Plan - Assessment and Plan (Free Text) Assessment: 62 yo female from a fdc, with hx of DM II, schizophrenia and HTN; initially admitted for sepsis and pneumonia. Initial labs were significant for leukocytosis with bandemia; CXR showed atelectasis vs infiltrate and pt was started on vancomycin, zosyn and zithromax IV. During the admission, pt was found to be bradycardic and became unresponsive. Code Martell was called for suspected Pulseless Electrical Activity; compressions were done and ROSC was achieved after 3 rounds of epinephrine. She was then transferred to ICU. When weaned off sedation, mental status changes appreciated per family when compared to her baseline. Neurology was consulted and EEG was ordered, which showed left frontal focal seizures. At this time, as per neuro, seizures appear to have resolved. Neuro status has remained unchanged. MRI was not successful due to body habitus. Plan: Cardiac/Respiratory Failure -s/p Code Blue with ROSC after 3 rounds of epinephrine -s/p intubation and sedation; currently still intubated but off sedation -EKG wnl and troponin neg x2 -Pulmonary on board Left frontal focal seizures -As seen on EEG; as per neuro pts infection and antipsychotic lowered seizure threshold; appear to have resolved now - s/p Ativan 4 mg - Keppra 1000 mg Q12 - Clozapine discontinued - Neuro on board Pneumonia, likely bacterial - CXR significant for for Interval patchy atelectasis or infiltrate right base and left perihilar/medial basilar distributions, as well as pleural effusions - ID on board; continue abx: azithromycin, vancomycin and zosyn - Blood cultures pending final, prelim negative - Urine culture no growth - Legionella negative - Pulmonary on board, pending recs - 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, QF gold pending Sepsis -Leukocytosis with bandemia on admission; trending down -Likely secondary to pneumonia -Continue with IV antibiotics as above -ID on board Anasarca -Likely secondary to fluid overloaded; improving -IV lasix given 40mg x 2 yesterday; continue 40 mg Lasix BID -Strict I&Os -Renal function stable Hypothyrodism -Chronic, uncontrolled -Levothyroxine 50mcg daily DM -Chronic -Metformin on hold, continue with other home meds -Insulin coverage scale and hypoglycemia protocol -Hypoglycemia protocol HTN -Chronic -Continue with home meds Schizophrenia -Chronic -Home meds held for now -Depakote levels normal DVT prophylaxis -Lovenox SQ <Baylee Garcia - Last Filed: 08/07/18 17:46> Objective - Vital Signs/Intake and Output Vital Signs (last 24 hours): Temp Pulse Resp BP Pulse Ox 98.3 F 61 22 169/93 H 98 08/07/18 16:33 08/07/18 16:33 08/07/18 16:33 08/07/18 16:33 08/07/18 16:33 Intake and Output: 08/07/18 08/07/18 06:59 18:59 Intake Total 1050 1920 Output Total 1350 Balance -300 1920 - Medications Medications: Current Medications Acetaminophen (Tylenol 325mg Tab) 650 mg PO Q6 PRN PRN Reason: Fever >100.4 F Last Admin: 08/05/18 05:35 Dose: 650 mg Albuterol Sulfate (Albuterol 0.083% Inhal Veronica (2.5 Mg/3 Ml) Ud) 2.5 mg INH RQ6 [facility] Last Admin: 08/07/18 07:49 Dose: 2.5 mg Amlodipine Besylate (Norvasc) 10 mg PO DAILY [facility] Last Admin: 08/07/18 08:37 Dose: 10 mg Aspirin (Ecotrin) 325 mg PO DAILY [facility] Last Admin: 08/07/18 08:34 Dose: 325 mg Atorvastatin Calcium (Lipitor) 10 mg PO HS [facility] Last Admin: 08/06/18 21:22 Dose: 10 mg Carvedilol (Coreg) 25 mg PO BID [facility] Last Admin: 08/07/18 16:06 Dose: 25 mg Dextrose (Dextrose 50% Inj) 0 ml IV STAT PRN; Protocol PRN Reason: Hypoglycemia Protocol Dextrose (Glutose 15) 0 gm PO ONCE PRN; Protocol PRN Reason: Hypoglycemia Protocol Divalproex Sodium (Depakote Er(Once Daily)) 1,250 mg PO HS [facility] Last Admin: 08/03/18 21:56 Dose: 1,250 mg Enoxaparin Sodium (Lovenox) 40 mg SC DAILY [facility]; Protocol Last Admin: 08/07/18 08:35 Dose: 40 mg Escitalopram Oxalate (Lexapro) 10 mg PO HS [facility] Last Admin: 08/03/18 21:31 Dose: 10 mg Fluticasone Propionate (Flonase) 2 spr ANIKA DAILY [facility] Last Admin: 08/07/18 08:35 Dose: Not Given Furosemide (Lasix) 40 mg IVP BID [facility] Last Admin: 08/07/18 16:07 Dose: 40 mg Glucagon (Glucagen Diagnostic Kit) 0 mg IM STAT PRN; Protocol PRN Reason: Hypoglycemia Protocol Azithromycin 500 mg/ Sodium (Chloride) 250 mls @ 250 mls/hr IVPB DAILY [facility]; Protocol Last Admin: 08/07/18 08:13 Dose: 250 mls/hr Vancomycin HCl 1 gm/ Sodium (Chloride) 250 mls @ 250 mls/hr IVPB Q12H [facility]; Protocol Last Admin: 08/07/18 11:35 Dose: 250 mls/hr Piperacillin Sod/Tazobactam (Sod 3.375 gm/ Sodium Chloride) 100 mls @ 100 mls/hr IVPB Q8 [facility]; Protocol Last Admin: 08/07/18 16:07 Dose: 100 mls/hr Levetiracetam 1,000 mg/ Sodium (Chloride) 110 mls @ 110 mls/hr IVPB Q1 2@0300,1500 [facility] Last Admin: 08/07/18 14:11 Dose: 110 mls/hr Ibuprofen (Motrin Tab) 600 mg PO Q6 PRN PRN Reason: Fever >100.4 F Last Admin: 08/07/18 04:10 Dose: 600 mg Insulin Detemir (Levemir) 15 units SC [facility] Last Admin: 08/06/18 21:23 Dose: 15 u Insulin Human Regular (Humulin R) 0 units SC [facility]; Protocol Last Admin: 08/07/18 16:06 Dose: 3 units Levothyroxine Sodium (Synthroid) 50 mcg PO DAILY@0630 [facility] Last Admin: 08/07/18 06:20 Dose: 50 mcg Lorazepam (Ativan) 2 mg IVP Q6 PRN PRN Reason: Agitation Last Admin: 08/07/18 10:57 Dose: 2 mg Losartan Potassium (Cozaar) 50 mg PO DAILY [facility] Last Admin: 08/07/18 08:34 Dose: 50 mg Morphine Sulfate (Morphine) 4 mg IVP Q6 PRN PRN Reason: Agitation Last Admin: 08/07/18 16:04 Dose: 4 mg Multivitamins/Minerals (Therapeutic-M Tab) 1 tab PO DAILY [facility] Last Admin: 08/07/18 08:37 Dose: 1 tab Pantoprazole Sodium (Protonix Ec Tab) 20 mg PO DAILY [facility] Last Admin: 08/07/18 08:37 Dose: 20 mg Sitagliptin Phosphate (Januvia) 100 mg PO [facility] Last Admin: 08/06/18 21:22 Dose: 100 mg - Labs Labs: 08/07/18 04:40 08/07/18 04:40 PT 12.2 Seconds (9.8-13.1) 08/04/18 00:30 INR 1.1 08/04/18 00:30 APTT 31.5 Seconds (25.6-37.1) 08/02/18 22:20 Attending/Attestation - Attestation I have personally seen and examined this patient.: Yes I have fully participated in the care of the patient.: Yes I have reviewed all pertinent clinical information, including history, physical exam and plan: Yes
[2018-08-07] MEDS: Potassium Chloride 20 mEq 100 ML IVPB SCH ×2 (11:34→14:10)
--- NOTE | 2018-08-07 13:53 | CP.PCM.PN ---
Subjective - Date & Time of Evaluation Date of Evaluation: 08/07/18 Time of Evaluation: 07:00 - Subjective Subjective: NO NEW CULTURES INTUBATED AFEB WILL SCREEN FOR AFB Objective - Vital Signs/Intake and Output Vital Signs (last 24 hours): Temp Pulse Resp BP Pulse Ox 98.6 F 55 L 14 146/71 98 08/07/18 12:00 08/07/18 12:00 08/07/18 12:00 08/07/18 12:00 08/07/18 12:00 Intake and Output: 08/07/18 08/07/18 06:59 18:59 Intake Total 1050 1300 Output Total 1350 Balance -300 1300 - Medications Medications: Current Medications Acetaminophen (Tylenol 325mg Tab) 650 mg PO Q6 PRN PRN Reason: Fever >100.4 F Last Admin: 08/05/18 05:35 Dose: 650 mg Albuterol Sulfate (Albuterol 0.083% Inhal Veronica (2.5 Mg/3 Ml) Ud) 2.5 mg INH RQ6 [facility] Last Admin: 08/07/18 07:49 Dose: 2.5 mg Amlodipine Besylate (Norvasc) 10 mg PO DAILY [facility] Last Admin: 08/07/18 08:37 Dose: 10 mg Aspirin (Ecotrin) 325 mg PO DAILY [facility] Last Admin: 08/07/18 08:34 Dose: 325 mg Atorvastatin Calcium (Lipitor) 10 mg PO HS [facility] Last Admin: 08/06/18 21:22 Dose: 10 mg Carvedilol (Coreg) 25 mg PO BID [facility] Last Admin: 08/07/18 08:33 Dose: 25 mg Dextrose (Dextrose 50% Inj) 0 ml IV STAT PRN; Protocol PRN Reason: Hypoglycemia Protocol Dextrose (Glutose 15) 0 gm PO ONCE PRN; Protocol PRN Reason: Hypoglycemia Protocol Divalproex Sodium (Depakote Er(Once Daily)) 1,250 mg PO HS [facility] Last Admin: 08/03/18 21:56 Dose: 1,250 mg Enoxaparin Sodium (Lovenox) 40 mg SC DAILY [facility]; Protocol Last Admin: 08/07/18 08:35 Dose: 40 mg Escitalopram Oxalate (Lexapro) 10 mg PO HS [facility] Last Admin: 08/03/18 21:31 Dose: 10 mg Fluticasone Propionate (Flonase) 2 spr ANIKA DAILY [facility] Last Admin: 08/07/18 08:35 Dose: Not Given Furosemide (Lasix) 40 mg IVP BID [facility] Last Admin: 08/07/18 08:35 Dose: 40 mg Glucagon (Glucagen Diagnostic Kit) 0 mg IM STAT PRN; Protocol PRN Reason: Hypoglycemia Protocol Azithromycin 500 mg/ Sodium (Chloride) 250 mls @ 250 mls/hr IVPB DAILY [facility]; Protocol Last Admin: 08/07/18 08:13 Dose: 250 mls/hr Vancomycin HCl 1 gm/ Sodium (Chloride) 250 mls @ 250 mls/hr IVPB Q12H [facility]; Protocol Last Admin: 08/07/18 11:35 Dose: 250 mls/hr Piperacillin Sod/Tazobactam (Sod 3.375 gm/ Sodium Chloride) 100 mls @ 100 mls/hr IVPB Q8 [facility]; Protocol Last Admin: 08/07/18 08:13 Dose: 100 mls/hr Levetiracetam 1,000 mg/ Sodium (Chloride) 110 mls @ 110 mls/hr IVPB Q12@0300,1500 [facility] Last Admin: 08/07/18 02:54 Dose: 110 mls/hr Potassium Chloride (Potassium Chloride 20 Meq/100 Ml) 100 mls @ 50 mls/hr IVPB Q2 [facility] Stop: 08/07/18 15:59 Last Admin: 08/07/18 11:34 Dose: 50 mls/hr Ibuprofen (Motrin Tab) 600 mg PO Q6 PRN PRN Reason: Fever >100.4 F Last Admin: 08/07/18 04:10 Dose: 600 mg Insulin Detemir (Levemir) 15 units SC HS [facility] Last Admin: 08/06/18 21:23 Dose: 15 u Insulin Human Regular (Humulin R) 0 units SC ACHS [facility]; Protocol Last Admin: 08/07/18 10:58 Dose: 3 units Levothyroxine Sodium (Synthroid) 50 mcg PO DAILY@0630 [facility] Last Admin: 08/07/18 06:20 Dose: 50 mcg Lorazepam (Ativan) 2 mg IVP Q6 PRN PRN Reason: Agitation Last Admin: 08/07/18 10:57 Dose: 2 mg Losartan Potassium (Cozaar) 50 mg PO DAILY [facility] Last Admin: 08/07/18 08:34 Dose: 50 mg Multivitamins/Minerals (Therapeutic-M Tab) 1 tab PO DAILY [facility] Last Admin: 08/07/18 08:37 Dose: 1 tab Pantoprazole Sodium (Protonix Ec Tab) 20 mg PO DAILY [facility] Last Admin: 08/07/18 08:37 Dose: 20 mg Sitagliptin Phosphate (Januvia) 100 mg PO HS [facility] Last Admin: 08/06/18 21:22 Dose: 100 mg - Labs Labs: 08/07/18 04:40 08/07/18 04:40 PT 12.2 Seconds (9.8-13.1) 08/04/18 00:30 INR 1.1 08/04/18 00:30 APTT 31.5 Seconds (25.6-37.1) 08/02/18 22:20 - Constitutional Appears: Non-toxic, Confused, Chronically Ill - Head Exam Head Exam: NORMOCEPHALIC - Eye Exam Eye Exam: PERRL - ENT Exam ENT Exam: Mucous Membranes Dry - Neck Exam Neck Exam: absent: Lymphadenopathy - Respiratory Exam Respiratory Exam: Decreased Breath Sounds - Cardiovascular Exam Cardiovascular Exam: REGULAR RHYTHM - GI/Abdominal Exam GI & Abdominal Exam: Distended, Soft Assessment and Plan (1) Pneumonia Status: Acute (2) Severe sepsis Status: Acute - Assessment and Plan (Free Text) Assessment: CONT IV RX ORDERED
--- NOTE | 2018-08-07 18:02 | CP.PCM.PN ---
Subjective - Date & Time of Evaluation Date of Evaluation: 08/07/18 Time of Evaluation: 14:00 - Subjective Subjective: Mrs. Ahumada was seen and examined today at bedside. She continued to be restless. But, there were no acute events or changes overnight. She was not able to obtain the MRI due to body habitus and positioning. EEG was done and continued to show diffuse slowing, but no focal seizures or generalized seizures. I spoke with the patient's daughter and explained all of this. Objective - Vital Signs/Intake and Output Vital Signs (last 24 hours): Temp Pulse Resp BP Pulse Ox 98.3 F 61 22 169/93 H 98 08/07/18 16:33 08/07/18 16:33 08/07/18 16:33 08/07/18 16:33 08/07/18 16:33 Intake and Output: 08/07/18 08/07/18 06:59 18:59 Intake Total 1050 1920 Output Total 1350 Balance -300 1920 - Medications Medications: Current Medications Acetaminophen (Tylenol 325mg Tab) 650 mg PO Q6 PRN PRN Reason: Fever >100.4 F Last Admin: 08/05/18 05:35 Dose: 650 mg Albuterol Sulfate (Albuterol 0.083% Inhal Veronica (2.5 Mg/3 Ml) Ud) 2.5 mg INH RQ6 [facility] Last Admin: 08/07/18 07:49 Dose: 2.5 mg Amlodipine Besylate (Norvasc) 10 mg PO DAILY [facility] Last Admin: 08/07/18 08:37 Dose: 10 mg Aspirin (Ecotrin) 325 mg PO DAILY [facility] Last Admin: 08/07/18 08:34 Dose: 325 mg Atorvastatin Calcium (Lipitor) 10 mg PO HS [facility] Last Admin: 08/06/18 21:22 Dose: 10 mg Carvedilol (Coreg) 25 mg PO BID [facility] Last Admin: 08/07/18 16:06 Dose: 25 mg Dextrose (Dextrose 50% Inj) 0 ml IV STAT PRN; Protocol PRN Reason: Hypoglycemia Protocol Dextrose (Glutose 15) 0 gm PO ONCE PRN; Protocol PRN Reason: Hypoglycemia Protocol Divalproex Sodium (Depakote Er(Once Daily)) 1,250 mg PO [facility] Last Admin: 08/03/18 21:56 Dose: 1,250 mg Enoxaparin Sodium (Lovenox) 40 mg SC DAILY [facility]; Protocol Last Admin: 08/07/18 08:35 Dose: 40 mg Escitalopram Oxalate (Lexapro) 10 mg PO HS [facility] Last Admin: 08/03/18 21:31 Dose: 10 mg Fluticasone Propionate (Flonase) 2 spr ANIKA DAILY [facility] Last Admin: 08/07/18 08:35 Dose: Not Given Furosemide (Lasix) 40 mg IVP BID [facility] Last Admin: 08/07/18 16:07 Dose: 40 mg Glucagon (Glucagen Diagnostic Kit) 0 mg IM STAT PRN; Protocol PRN Reason: Hypoglycemia Protocol Azithromycin 500 mg/ Sodium (Chloride) 250 mls @ 250 mls/hr IVPB DAILY [facility]; Protocol Last Admin: 08/07/18 08:13 Dose: 250 mls/hr Vancomycin HCl 1 gm/ Sodium (Chloride) 250 mls @ 250 mls/hr IVPB Q12H [facility]; Protocol Last Admin: 08/07/18 11:35 Dose: 250 mls/hr Piperacillin Sod/Tazobactam (Sod 3.375 gm/ Sodium Chloride) 100 mls @ 100 mls/hr IVPB Q8 [facility]; Protocol Last Admin: 08/07/18 16:07 Dose: 100 mls/hr Levetiracetam 1,000 mg/ Sodium (Chloride) 110 mls @ 110 mls/hr IVPB Q12@0300,15 00 [facility] Last Admin: 08/07/18 14:11 Dose: 110 mls/hr Ibuprofen (Motrin Tab) 600 mg PO Q6 PRN PRN Reason: Fever >100.4 F Last Admin: 08/07/18 04:10 Dose: 600 mg Insulin Detemir (Levemir) 15 units SC [facility] Last Admin: 08/06/18 21:23 Dose: 15 u Insulin Human Regular (Humulin R) [address] [facility]; Protocol Last Admin: 08/07/18 16:06 Dose: 3 units Levothyroxine Sodium (Synthroid) 50 mcg PO DAILY@0630 [facility] Last Admin: 08/07/18 06:20 Dose: 50 mcg Lorazepam (Ativan) 2 mg IVP Q6 PRN PRN Reason: Agitation Last Admin: 08/07/18 10:57 Dose: 2 mg Losartan Potassium (Cozaar) 50 mg PO DAILY [facility] Last Admin: 08/07/18 08:34 Dose: 50 mg Morphine Sulfate (Morphine) 4 mg IVP Q6 PRN PRN Reason: Agitation Last Admin: 08/07/18 16:04 Dose: 4 mg Multivitamins/Minerals (Therapeutic-M Tab) 1 tab PO DAILY [facility] Last Admin: 08/07/18 08:37 Dose: 1 tab Pantoprazole Sodium (Protonix Ec Tab) 20 mg PO DAILY [facility] Last Admin: 08/07/18 08:37 Dose: 20 mg Sitagliptin Phosphate (Januvia) 100 mg PO HS [facility] Last Admin: 08/06/18 21:22 Dose: 100 mg - Labs Labs: 08/07/18 04:40 08/07/18 04:40 PT 12.2 Seconds (9.8-13.1) 08/04/18 00:30 INR 1.1 08/04/18 00:30 APTT 31.5 Seconds (25.6-37.1) 08/02/18 22:20 - Neurological Exam Additional comments: Moves all extremities, does not follow commands. Remains intubated for airway protection. GCS 10T Assessment and Plan (1) Localization-related (focal) (partial) symptomatic epilepsy and epileptic syndromes with complex partial seizures, intractable, with status epilepticus Status: Resolved (2) Toxic metabolic encephalopathy Assessment & Plan: Continue treating underlying causes. There is likely an element of delirium as well. Infectious etiology is still the likely cause of the encephalopathy superimposed on psych history. Status: Acute
[2018-08-07] MEDS: Insulin Detemir 100 Units/ml Inj SC SCH (21:35)
[2018-08-08] MEDS: Piperacillin/Tazobact 3.375 GM in Sodium Chloride 0.9% 100 ML IVPB SCH ×3 (00:06→16:13)
[2018-08-08] MEDS: Albuterol 0.083% Inhal Sol (2.5 mg/3 mL) UD INH SCH ×4 (02:07→19:36)
[2018-08-08] MEDS: levETIRAcetam 1,000 MG in Sodium Chloride 0.9% 100 ML IVPB SCH ×2 (02:51→14:42)
[2018-08-08 05:12] LABS: ABG ALLEN TEST YES; ARTERIAL BLOOD GAS HCO3 32.3 mmol/L (21-28); ARTERIAL BLOOD GAS HEMOGLOBIN 9.4 g/dL (11.7-17.4); ARTERIAL BLOOD GAS O2 CONTENT 12.2 ML/dL (15-23); ARTERIAL BLOOD GAS O2 SAT 93.9 % (95-98); ARTERIAL BLOOD GAS PCO2 42 mm/Hg (35-45); ARTERIAL BLOOD GAS PH 7.51 (7.35-7.45); ARTERIAL BLOOD GAS PO2 59 mm/Hg (80-100); ARTERIAL BLOOD GAS TCO2 34.8 mmol/L (22-28)
[2018-08-08 05:14] LABS: HEMOGLOBIN 9.6 g/dL (12.0-16.0); MEAN CORPUSCULAR HEMOGLOBIN 25.7 pg (27.0-31.0); MEAN CORPUSCULAR HGB CONC 32.6 g/dL (33.0-37.0); RBC 3.72 Mil/uL (3.80-5.20); RED CELL DISTRIBUTION WIDTH 15.9 % (11.5-14.5)
[2018-08-08 05:24] LABS: ALB/GLOB RATIO 0.9 (1.0-2.1); ALBUMIN 3.4 g/dL (3.5-5.0); ALT/SGPT 95 U/L (9-52); AST/SGOT 39 U/L (14-36); BLOOD UREA NITROGEN 15 mg/dl (7-17); CALCIUM 9.9 mg/dL (8.4-10.2); GFR NON-AFRICAN AMERICAN > 60
[2018-08-08] MEDS: Levothyroxine 50 MCG TAB PO SCH (05:33)
[2018-08-08] MEDS: Insulin Regular 100 units/ml SC SCH ×4 (06:33→21:02)
[2018-08-08] MEDS: Aspirin 325 mg EC Tablets PO SCH (08:36)
[2018-08-08] MEDS: Enoxaparin 40 mg Syringe SC SCH (08:39)
[2018-08-08] MEDS: Pantoprazole 20 mg EC Tab PO SCH (08:40)
[2018-08-08] MEDS: Azithromycin 500 MG in Sodium Chloride 0.9% 250 ML IVPB SCH (08:41)
[2018-08-08] MEDS: Multivitamin With Minerals Tab PO SCH (09:10)
--- NOTE | 2018-08-08 10:34 | CP.PCM.PN ---
Subjective - Date & Time of Evaluation Date of Evaluation: 08/08/18 Time of Evaluation: 09:45 - Subjective Subjective: Low grade feveryesreday 99.9 , no fever so far since then Remains intubated on Vent 14/500/5/80% seems restless - moving her legs opens eyes to verbal stimuli however does not follow command soft wrist restraint bilat UE Objective - Vital Signs/Intake and Output Vital Signs (last 24 hours): Temp Pulse Resp BP Pulse Ox 98.8 F 62 16 149/72 100 08/08/18 08:00 08/08/18 08:40 08/08/18 08:00 08/08/18 08:40 08/08/18 08:00 Intake and Output: 08/08/18 08/08/18 06:59 18:59 Intake Total 2140 155 Output Total 1800 150 Balance 340 5 - Medications Medications: Current Medications Acetaminophen (Tylenol 325mg Tab) 650 mg PO Q6 PRN PRN Reason: Fever >100.4 F Last Admin: 08/05/18 05:35 Dose: 650 mg Albuterol Sulfate (Albuterol 0.083% Inhal Veronica (2.5 Mg/3 Ml) Ud) 2.5 mg INH RQ6 [facility] Last Admin: 08/08/18 07:52 Dose: 2.5 mg Amlodipine Besylate (Norvasc) 10 mg PO DAILY [facility] Last Admin: 08/08/18 08:40 Dose: 10 mg Aspirin (Ecotrin) 325 mg PO DAILY [facility] Last Admin: 08/08/18 08:36 Dose: 325 mg Atorvastatin Calcium (Lipitor) 10 mg PO HS [facility] Last Admin: 08/07/18 21:36 Dose: 10 mg Carvedilol (Coreg) 25 mg PO BID [facility] Last Admin: 08/08/18 08:35 Dose: 25 mg Dextrose (Dextrose 50% Inj) 0 ml IV STAT PRN; Protocol PRN Reason: Hypoglycemia Protocol Dextrose (Glutose 15) 0 gm PO ONCE PRN; Protocol PRN Reason: Hypoglycemia Protocol Divalproex Sodium (Depakote Er(Once Daily)) 1,250 mg PO HS [facility] Last Admin: 08/03/18 21:56 Dose: 1,250 mg Escitalopram Oxalate (Lexapro) 10 mg PO [facility] Last Admin: 08/03/18 21:31 Dose: 10 mg Fluticasone Propionate (Flonase) 2 spr ANIKA DAILY [facility] Last Admin: 08/08/18 08:37 Dose: 2 spr Furosemide (Lasix) 40 mg IVP BID [facility] Last Admin: 08/08/18 08:38 Dose: 40 mg Glucagon (Glucagen Diagnostic Kit) 0 mg IM STAT PRN; Protocol PRN Reason: Hypoglycemia Protocol Vancomycin HCl 1 gm/ Sodium (Chloride) 250 mls @ 250 mls/hr IVPB Q12H [facility]; Protocol Last Admin: 08/07/18 22:08 Dose: 250 mls/hr Piperacillin Sod/Tazobactam (Sod 3.375 gm/ Sodium Chloride) 100 mls @ 100 mls/hr IVPB Q8 [facility]; Protocol Last Admin: 08/08/18 08:42 Dose: 100 mls/hr Levetiracetam 1,000 mg/ Sodium (Chloride) 110 mls @ 110 mls/hr IVPB Q 12@0300,1500 [facility] Last Admin: 08/08/18 02:51 Dose: 110 mls/hr Ibuprofen (Motrin Tab) 600 mg PO Q6 PRN PRN Reason: Fever >100.4 F Last Admin: 08/07/18 04:10 Dose: 600 mg Insulin Detemir (Levemir) 15 units SC HS [facility] Last Admin: 08/07/18 21:35 Dose: 15 u Insulin Human Regular (Humulin R) 0 units SC ACHS [facility]; Protocol Last Admin: 08/08/18 06:33 Dose: 3 units Levothyroxine Sodium (Synthroid) 50 mcg PO DAILY@0630 [facility] Last Admin: 08/08/18 05:33 Dose: 50 mcg Lorazepam (Ativan) 2 mg IVP Q6 PRN PRN Reason: Agitation Last Admin: 08/08/18 06:06 Dose: 2 mg Losartan Potassium (Cozaar) 50 mg PO DAILY [facility] Last Admin: 08/08/18 08:36 Dose: 50 mg Morphine Sulfate (Morphine) 4 mg IVP Q6 PRN PRN Reason: Agitation Last Admin: 08/07/18 16:04 Dose: 4 mg Multivitamins/Minerals (Therapeutic-M Tab) 1 tab PO DAILY [facility] Last Admin: 08/08/18 09:10 Dose: 1 tab Pantoprazole Sodium (Protonix Ec Tab) 20 mg PO DAILY [facility] Last Admin: 08/08/18 08:40 Dose: 20 mg Sitagliptin Phosphate (Januvia) 100 mg PO HS [facility] Last Admin: 08/07/18 21:34 Dose: 100 mg - Labs Labs: 08/08/18 04:25 08/08/18 04:25 PT 12.2 Seconds (9.8-13.1) 08/04/18 00:30 INR 1.1 08/04/18 00:30 APTT 31.5 Seconds (25.6-37.1) 08/02/18 22:20 - Constitutional Appears: In Acute Distress, Chronically Ill - Head Exam Head Exam: NORMAL INSPECTION, NORMOCEPHALIC - Eye Exam Eye Exam: EOMI, Normal appearance, PERRL Pupil Exam: NORMAL ACCOMODATION - ENT Exam ENT Exam: Mucous Membranes Dry, Normal External Ear Exam - Neck Exam Neck Exam: Full ROM. absent: Meningismus - Respiratory Exam Respiratory Exam: Rales, Rhonchi, NORMAL BREATHING PATTERN. absent: Wheezes - Cardiovascular Exam Cardiovascular Exam: REGULAR RHYTHM, +S1, +S2 - GI/Abdominal Exam GI & Abdominal Exam: Soft, Normal Bowel Sounds - Extremities Exam Extremities Exam: Normal Capillary Refill - Neurological Exam Neurological Exam: Awake - Psychiatric Exam Psychiatric exam: Anxious - Skin Skin Exam: Dry, Normal Color, Warm Assessment and Plan - Assessment and Plan (Free Text) Assessment: 62 yo female from a shelter, with hx of DM II, schizophrenia and HTN; initially admitted for sepsis and pneumonia. Initial labs were significant for leukocytosis with bandemia; CXR showed atelectasis vs infiltrate and pt was started on vancomycin, zosyn and zithromax IV. During the admission, pt was found to be bradycardic and became unresponsive. Code Blue was called for suspected Pulseless Electrical Activity; compressions done ,was achieved after 3 rounds of epinephrine. She was then transferred to ICU. When weaned off sedation, mental status changes appreciated per family when compared to her baseline. Neurology was consulted and EEG was ordered, which showed left frontal focal seizures. MRI cannot be done due to body habitus. s/p Cardiao/Respiratory Arrest -s/p Code Blue ( 3 doses of epinephrine) -Intubated , off sedation -EKG wnl and troponin neg x2 Left frontal focal seizures -As seen on EEG; as per neuro due to pts infection and antipsychotic lowered seizure threshold; appear to have resolved now - Keppra 1000 mg Q12 - Clozapine discontinued - Neuro on board Pneumonia, likely bacterial - CXR significant for for Interval patchy atelectasis or infiltrate right base and left perihilar/medial basilar distributions, as well as pleural effusions - ID on board; continue abx: azithromycin, vancomycin and zosyn - Blood cultures: neg - Urine culture no growth - Legionella negative - Pulmonary consulted - 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
--- NOTE | 2018-08-08 12:15 | CP.CCUPN ---
CCU Objective - Vital Signs / Intake & Output Vital Signs (Last 4 hours): Vital Signs Temp Pulse Resp BP Pulse Ox 08/08/18 10:00 98.9 F 70 22 166/55 H 99 08/08/18 08:40 62 149/72 08/08/18 08:38 149/72 08/08/18 08:36 62 149/72 08/08/18 08:35 62 149/72 Intake and Output (Last 8hrs): Intake & Output 08/07/18 08/08/18 08/08/18 22:59 06:59 14:59 Intake Total 1630 1040 505 Output Total 2700 1800 1300 Balance -1070 -760 -795 Intake: IV 10 5 Intake, Piggyback 700 200 350 Tube Feeding 420 540 Free Water Flush 500 300 150 Output: Urine 2700 1800 1300 Urethral (Ray) 2700 1800 1300 Other: # Bowel Movements 1 0 - Physical Exam Head: Positive for: Normocephalic Pupils: Positive for: Sluggish Conjunctiva: Positive for: Normal Ears: Positive for: Normal Mouth: Positive for: Moist Mucous Membranes (ETT tube in place, yellow secretions, OG tube) Nose (External): Positive for: Other Neck: Positive for: Normal Range of Motion Respiratory/Chest: Positive for: Good Air Exchange, Rhonchi. Negative for: Respiratory Distress, Rales Cardiovascular: Positive for: Regular Rate and Rhythm. Negative for: Murmurs Abdomen: Positive for: Distention, Normal Bowel Sounds Upper Extremity: Positive for: Edema (trace pitting in upper extremities bl), NORMAL PULSES, Capillary Refill < 2s Lower Extremity: Positive for: NORMAL PULSES, Capillary Refill < 2 s. Negative for: Edema Neurological: Positive for: Other (Eyes open spotnaneously, non verbal, withdr billy from pain) Skin: Positive for: Warm, Dry, Rashes Psychiatric: Positive for: Alert (intermittently), Lethargic. Negative for: Oriented x 3, Agitated - Medications Active Medications: Active Medications Generic Name Dose Route Start Last Admin Trade Name Freq PRN Reason Stop Dose Admin Acetaminophen 650 mg 08/03/18 03:33 08/05/18 05:35 Tylenol 325mg Tab PO 650 mg Q6 PRN Administration Fever >100.4 F Albuterol Sulfate 2.5 mg 08/03/18 02:00 08/08/18 07:52 Albuterol 0.083% Inhal Vreonica (2.5 Mg/3 Ml) Ud INH 2.5 mg RQ6 [facility] Administration Amlodipine Besylate 10 mg 08/03/18 09:00 08/08/18 08:40 Norvasc PO 10 mg DAILY [facility] Administration Aspirin 325 mg 08/03/18 09:00 08/08/18 08:36 Ecotrin PO 325 mg DAILY [facility] Administration Atorvastatin Calcium 10 mg 08/03/18 22:00 08/07/18 21:36 Lipitor PO 10 mg HS [facility] Administration Carvedilol 25 mg 08/03/18 09:00 08/08/18 08:35 Coreg PO 25 mg BID [facility] Administration Dextrose 0 ml 08/03/18 03:35 Dextrose 50% Inj IV STAT PRN Hypoglycemia Protocol Protocol Dextrose 0 gm 08/03/18 03:35 Glutose 15 PO ONCE PRN Hypoglycemia Protocol Protocol Divalproex Sodium 1,250 mg 08/03/18 22:00 08/03/18 21:56 Depakote Er(Once Daily) PO 1,250 mg HS [facility] Administration Escitalopram Oxalate 10 mg 08/03/18 22:00 08/03/18 21:31 Lexapro PO 10 mg HS [facility] Administration Fluticasone Propionate 2 spr 08/03/18 09:00 08/08/18 08:37 Flonase ANIKA 2 spr DAILY [facility] Administration Furosemide 40 mg 08/06/18 09:00 08/08/18 08:38 Lasix IVP 40 mg BID [facility] Administration Glucagon 0 mg 08/03/18 03:35 Glucagen Diagnostic Kit IM STAT PRN Hypoglycemia Protocol Protocol Vancomycin HCl 1 gm/ Sodium 250 mls @ 250 mls/hr 08/03/18 11:00 08/08/18 11:10 Chloride IVPB 250 mls/hr Q12H [facility] Administration Protocol Piperacillin Sod/Tazobactam 100 mls @ 100 mls/hr 08/03/18 11:00 08/08/18 08:42 Sod 3.375 gm/ Sodium Chloride IVPB 100 mls/hr Q8 [facility] Administration Protocol Levetiracetam 1,000 mg/ Sodium 110 mls @ 110 mls/hr 08/06/18 15:00 08/08/18 02:51 Chloride IVPB 110 mls/hr Q12@0300,1500 [facility] Administration Ibuprofen 600 mg 08/03/18 13:30 08/07/18 04:10 Motrin Tab PO 600 mg Q6 PRN Administration Fever >100.4 F Insulin Detemir 15 units 08/03/18 22:00 08/07/18 21:35 Levemir SC 15 u HS [facility] Administration Insulin Human Regular 0 units 08/07/18 11:30 08/08/18 06:33 Humulin R SC 3 units ACHS [facility] Administration Protocol Levothyroxine Sodium 50 mcg 08/04/18 06:30 08/08/18 05:33 Synthroid PO 50 mcg DAILY@0630 [facility] Administration Lorazepam 2 mg 08/06/18 16:28 08/08/18 06:06 Ativan IVP 2 mg Q6 PRN Administration Agitation Losartan Potassium 50 mg 08/03/18 09:00 08/08/18 08:36 Cozaar PO 50 mg DAILY [facility] Administration Morphine Sulfate 4 mg 08/07/18 15:59 08/07/18 16:04 Morphine IVP 4 mg Q6 PRN Administration Agitation Multivitamins/Minerals 1 tab 08/03/18 09:00 08/08/18 09:10 Therapeutic-M Tab PO 1 tab DAILY [facility] Administration Pantoprazole Sodium 20 mg 08/03/18 09:00 08/08/18 08:40 Protonix Ec Tab PO 20 mg DAILY [facility] Administration Sitagliptin Phosphate 100 mg 08/03/18 22:00 08/07/18 21:34 Januvia PO 100 mg HS [facility] Administration - Patient Studies Lab Studies: Microbiology Studies 08/06/18 08:21 Gram Stain - Final Sputum Induced Sputum Culture - Final No growth. 08/02/18 22:10 Blood Culture - Final Blood-Venous NO GROWTH AFTER 5 DAYS Gram Stain - Final TEST NOT PERFORMED 08/02/18 22:05 Blood Culture - Final Blood-Venous NO GROWTH AFTER 5 DAYS Gram Stain - Final TEST NOT PERFORMED 08/03/18 16:41 Blood Culture - Preliminary Blood NO GROWTH AFTER 4 DAYS 08/03/18 16:31 Blood Culture - Preliminary Blood NO GROWTH AFTER 4 DAYS 08/04/18 08:03 Gram Stain - Final Sputum Sputum Culture - Final NORMAL ORAL CHRISTOPHER Lab Studies 08/08/18 08/08/18 08/08/18 Range/Units 06:11 05:10 04:25 WBC (4.8-10.8) K/uL RBC (3.80-5.20) Mil/uL Hgb (12.0-16.0) g/dL Hct (34.0-47.0) % MCV (81.0-99.0) fl MCH (27.0-31.0) pg MCHC (33.0-37.0) g/dL RDW (11.5-14.5) % Plt Count (130-400) K/uL pCO2 42 (35-45) mm/Hg pO2 59 L (80-100) mm/Hg HCO3 32.3 H (21-28) mmol/L ABG pH 7.51 H (7.35-7.45) ABG Total CO2 34.8 H (22-28) mmol/L ABG O2 Saturation 93.9 L (95-98) % ABG O2 Content 12.2 L (15-23) ML/dL ABG Base Excess 9.6 H (-2.0-3.0) mmol/L ABG Hemoglobin 9.4 L (11.7-17.4) g/dL ABG Carboxyhemoglobin 1.0 (0.5-1.5) % POC ABG HHb (Measured) 6.0 H (0.0-5.0) % ABG Methemoglobin 0.8 (0.0-3.0) % ABG O2 Capacity 13.0 L (16-24) mL/dL Bridger Test Yes A-a O2 Difference 316.0 mm/Hg Hgb O2 Saturation 92.2 L (95.0-98.0) % Vent Mode A/c Mechanical Rate 14 FiO2 60.0 % Tidal Volume 450 PEEP 5 Sodium 141 (132-148) mmol/l Potassium 3.9 (3.6-5.0) MMOL/L Chloride 99 (98-107) mmol/L Carbon Dioxide 33 H (22-30) mmol/L Anion Gap 13 (10-20) BUN 15 (7-17) mg/dl Creatinine 0.5 L (0.7-1.2) mg/dl Est GFR ( Amer) > 60 Est GFR (Non-Af Amer) > 60 POC Glucose (mg/dL) 213 H (65-110) mg/dL Random Glucose 252 H (65-105) mg/dL Calcium 9.9 (8.4-10.2) mg/dL Phosphorus 5.2 H (2.5-4.5) mg/dl Magnesium 2.0 (1.6-2.3) MG/DL Total Bilirubin 0.4 (0.2-1.3) mg/dl AST 39 H D (14-36) U/L ALT 95 H (9-52) U/L Alkaline Phosphatase 172 H (38-126) U/L Total Protein 7.2 (6.3-8.2) G/DL Albumin 3.4 L (3.5-5.0) g/dL Globulin 3.8 (2.2-3.9) gm/dL Albumin/Globulin Ratio 0.9 L (1.0-2.1) TB Test (QFT) Nil IU/mL TB Test Mitogen - Nil IU/mL TB Test TB - Nil IU/mL TB Test (QFT) (Negative) 08/08/18 08/07/18 08/07/18 Range/Units 04:25 21:13 16:02 WBC 15.0 H (4.8-10.8) K/uL RBC 3.72 L (3.80-5.20) Mil/uL Hgb 9.6 L (12.0-16.0) g/dL Hct 29.4 L (34.0-47.0) % MCV 79.0 L (81.0-99.0) fl MCH 25.7 L (27.0-31.0) pg MCHC 32.6 L (33.0-37.0) g/dL RDW 15.9 H (11.5-14.5) % Plt Count 540 H D (130-400) K/uL pCO2 (35-45) mm/Hg pO2 (80-100) mm/Hg HCO3 (21-28) mmol/L ABG pH (7.35-7.45) ABG Total CO2 (22-28) mmol/L ABG O2 Saturation (95-98) % ABG O2 Content (15-23) ML/dL ABG Base Excess (-2.0-3.0) mmol/L ABG Hemoglobin (11.7-17.4) g/dL ABG Carboxyhemoglobin (0.5-1.5) % POC ABG HHb (Measured) (0.0-5.0) % ABG Methemoglobin (0.0-3.0) % ABG O2 Capacity (16-24) mL/dL Bridger Test A-a O2 Difference mm/Hg Hgb O2 Saturation (95.0-98.0) % Vent Mode Mechanical Rate FiO2 % Tidal Volume PEEP Sodium (132-148) mmol/l Potassium (3.6-5.0) MMOL/L Chloride (98-107) mmol/L Carbon Dioxide (22-30) mmol/L Anion Gap (10-20) BUN (7-17) mg/dl Creatinine (0.7-1.2) mg/dl Est GFR ( Amer) Est GFR (Non-Af Amer) POC Glucose (mg/dL) 278 H 234 H (65-110) mg/dL Random Glucose (65-105) mg/dL Calcium (8.4-10.2) mg/dL Phosphorus (2.5-4.5) mg/dl Magnesium (1.6-2.3) MG/DL Total Bilirubin (0.2-1.3) mg/dl AST (14-36) U/L ALT (9-52) U/L Alkaline Phosphatase (38-126) U/L Total Protein (6.3-8.2) G/DL Albumin (3.5-5.0) g/dL Globulin (2.2-3.9) gm/dL Albumin/Globulin Ratio (1.0-2.1) TB Test (QFT) Nil IU/mL TB Test Mitogen - Nil IU/mL TB Test TB - Nil IU/mL TB Test (QFT) (Negative) 08/07/18 08/06/18 Range/Units 10:57 09:30 WBC (4.8-10.8) K/uL RBC (3.80-5.20) Mil/uL Hgb (12.0-16.0) g/dL Hct (34.0-47.0) % MCV (81.0-99.0) fl MCH (27.0-31.0) pg MCHC (33.0-37.0) g/dL RDW (11.5-14.5) % Plt Count (130-400) K/uL pCO2 (35-45) mm/Hg pO2 (80-100) mm/Hg HCO3 (21-28) mmol/L ABG pH (7.35-7.45) ABG Total CO2 (22-28) mmol/L ABG O2 Saturation (95-98) % ABG O2 Content (15-23) ML/dL ABG Base Excess (-2.0-3.0) mmol/L ABG Hemoglobin (11.7-17.4) g/dL ABG Carboxyhemoglobin (0.5-1.5) % POC ABG HHb (Measured) (0.0-5.0) % ABG Methemoglobin (0.0-3.0) % ABG O2 Capacity (16-24) mL/dL Bridger Test A-a O2 Difference mm/Hg Hgb O2 Saturation (95.0-98.0) % Vent Mode Mechanical Rate FiO2 % Tidal Volume PEEP Sodium (132-148) mmol/l Potassium (3.6-5.0) MMOL/L Chloride (98-107) mmol/L Carbon Dioxide (22-30) mmol/L Anion Gap (10-20) BUN (7-17) mg/dl Creatinine (0.7-1.2) mg/dl Est GFR ( Amer) Est GFR (Non-Af Amer) POC Glucose (mg/dL) 249 H (65-110) mg/dL Random Glucose (65-105) mg/dL Calcium (8.4-10.2) mg/dL Phosphorus (2.5-4.5) mg/dl Magnesium (1.6-2.3) MG/DL Total Bilirubin (0.2-1.3) mg/dl AST (14-36) U/L ALT (9-52) U/L Alkaline Phosphatase (38-126) U/L Total Protein (6.3-8.2) G/DL Albumin (3.5-5.0) g/dL Globulin (2.2-3.9) gm/dL Albumin/Globulin Ratio (1.0-2.1) TB Test (QFT) Nil 0.08 IU/mL TB Test Mitogen - Nil 0.15 IU/mL TB Test TB - Nil 0.02 IU/mL TB Test (QFT) Indeterminate H (Negative) Laboratory Results - last 24 hr 08/06/18 08/07/18 08/07/18 09:30 10:57 16:02 WBC RBC Hgb Hct MCV MCH MCHC RDW Plt Count pCO2 pO2 HCO3 ABG pH ABG Total CO2 ABG O2 Saturation ABG O2 Content ABG Base Excess ABG Hemoglobin ABG Carboxyhemoglobin POC ABG HHb (Measured) ABG Methemoglobin ABG O2 Capacity Bridger Test A-a O2 Difference Hgb O2 Saturation Vent Mode Mechanical Rate FiO2 Tidal Volume PEEP Sodium Potassium Chloride Carbon Dioxide Anion Gap BUN Creatinine Est GFR ( Amer) Est GFR (Non-Af Amer) POC Glucose (mg/dL) 249 H 234 H Random Glucose Calcium Phosphorus Magnesium Total Bilirubin AST ALT Alkaline Phosphatase Total Protein Albumin Globulin Albumin/Globulin Ratio TB Test (QFT) Nil 0.08 TB Test Mitogen - Nil 0.15 TB Test TB - Nil 0.02 TB Test (QFT) Indeterminate H 08/07/18 08/08/18 08/08/18 21:13 04:25 04:25 WBC 15.0 H RBC 3.72 L Hgb 9.6 L Hct 29.4 L MCV 79.0 L MCH 25.7 L MCHC 32.6 L RDW 15.9 H Plt Count 540 H D pCO2 pO2 HCO3 ABG pH ABG Total CO2 ABG O2 Saturation ABG O2 Content ABG Base Excess ABG Hemoglobin ABG Carboxyhemoglobin POC ABG HHb (Measured) ABG Methemoglobin ABG O2 Capacity Bridger Test A-a O2 Difference Hgb O2 Saturation Vent Mode Mechanical Rate FiO2 Tidal Volume PEEP Sodium 141 Potassium 3.9 Chloride 99 Carbon Dioxide 33 H Anion Gap 13 BUN 15 Creatinine 0.5 L Est GFR ( Amer) > 60 Est GFR (Non-Af Amer) > 60 POC Glucose (mg/dL) 278 H Random Glucose 252 H Calcium 9.9 Phosphorus 5.2 H Magnesium 2.0 Total Bilirubin 0.4 AST 39 H D ALT 95 H Alkaline Phosphatase 172 H Total Protein 7.2 Albumin 3.4 L Globulin 3.8 Albumin/Globulin Ratio 0.9 L TB Test (QFT) Nil TB Test Mitogen - Nil TB Test TB - Nil TB Test (QFT) 08/08/18 08/08/18 05:10 06:11 WBC RBC Hgb Hct MCV MCH MCHC RDW Plt Count pCO2 42 pO2 59 L HCO3 32.3 H ABG pH 7.51 H ABG Total CO2 34.8 H ABG O2 Saturation 93.9 L ABG O2 Content 12.2 L ABG Base Excess 9.6 H ABG Hemoglobin 9.4 L ABG Carboxyhemoglobin 1.0 POC ABG HHb (Measured) 6.0 H ABG Methemoglobin 0.8 ABG O2 Capacity 13.0 L Bridger Test Yes A-a O2 Difference 316.0 Hgb O2 Saturation 92.2 L Vent Mode A/c Mechanical Rate 14 FiO2 60.0 Tidal Volume 450 PEEP 5 Sodium Potassium Chloride Carbon Dioxide Anion Gap BUN Creatinine Est GFR ( Amer) Est GFR (Non-Af Amer) POC Glucose (mg/dL) 213 H Random Glucose Calcium Phosphorus Magnesium Total Bilirubin AST ALT Alkaline Phosphatase Total Protein Albumin Globulin Albumin/Globulin Ratio TB Test (QFT) Nil TB Test Mitogen - Nil TB Test TB - Nil TB Test (QFT) Fingerstick Blood Sugar Results: 213 Critical Care Progress Note - Nutrition Nutrition: Nutrition Category Date Time Status NPO Diet [DIET] Diets 08/04/18 Breakfast Active Assessment/Plan - Assessment and Plan (Free Text) Assessment: ASSESSMENT: 62 yo F with pmhx of HTN, DM2, Hypothyroid, GERD, schizophrenia s/p fall in [facility], admitted for sepsis secondary to pneumonia, experienced a cardiac arrest. 1-Resp failure: aspiration PNA 2-Cardiac arrest 3-Hypoxic encephalopathy 4-Pleural effusion 5-Hypothyroidism 6-HTN 7-DM 8-Scizophrenia Plan: 1) Pleural effusion/Pneumonia - Requiring higher Fio today, increase Fio to 0.80 from 0.60 CXR reviewed , left lung is clear, probably Rt pleural effusion causing hypoxia, milght need thoracentesis, will do CT ben to evlaluate the pleural effusion. -Airbone isolation -hx of positive PPD, living in [facility] -Daughter denies hx of TB or close contacts/recent travel -legionella: negative -CXR: 08/08: R pleural effusion and R lower lobe atelectasis/pneumonia -Continue: IVABX: Vanc, zosyn -Pending: Quant gold and AFP cultures - 2) Intubated - Mechanical ventilation Increased Fio: 0.80, AC 500 PEEP : 5 12/m 4) Hypokalemia due to lasix -Kcl: 20 meq x2 5) DM 2 - SS Insulin increased to medium coverage - Januvia 6) Constipation -Lactulose AL 7) Cardiac arrest -ROSC -EKG NSR -troponin: neg x4 8) Sepsis - Lactic acid: 1.9 from 3.2 on admission - leukocytes: 12.2 from 16.4 - bcx: no growth for 3 days; Urine cx: negative, final - afebrile 9) Seizure activity -Resolved -Dr. Keller: focal seizure on EEG; keppra 1000 mg BID; D/C Clozapine -CT head: No intracranial hemorrhage or mass effect. Cerebral atrophy and similar chronic microvascular ischemic changes. Paranasal sinus inflammatory changes-interval air-fluid level/sinusitis sphenoid sinus now noted. -Brain MRI: unable to be performed 2/2 body habitus. 10) Hypothyroid - Levothyroxine 50 mcg
--- NOTE | 2018-08-08 14:33 | RAD ---
Date of service: 08/08/2018 HISTORY: intubated COMPARISON: 08/07/2018 FINDINGS: LUNGS: Right lower lobe infiltrate, unchanged. PLEURA: No significant pleural effusion identified, no pneumothorax apparent. CARDIOVASCULAR: No aortic atherosclerotic calcification present. Normal cardiac size. No pulmonary vascular congestion. OSSEOUS STRUCTURES: No significant abnormalities. VISUALIZED UPPER ABDOMEN: Normal. OTHER FINDINGS: ETT ETT above the rojas. IMPRESSION: Right lower lobe infiltrate, unchanged.
[2018-08-08] MEDS: Insulin Detemir 100 Units/ml Inj SC SCH (21:02)
[2018-08-09] MEDS: Albuterol 0.083% Inhal Sol (2.5 mg/3 mL) UD INH SCH ×2 (01:00→19:16)
[2018-08-09] MEDS: Piperacillin/Tazobact 3.375 GM in Sodium Chloride 0.9% 100 ML IVPB SCH ×3 (01:07→16:56)
[2018-08-09] MEDS: levETIRAcetam 1,000 MG in Sodium Chloride 0.9% 100 ML IVPB SCH ×2 (03:49→14:33)
[2018-08-09] MEDS ORDERED: Sodium Chloride 3% for Inhalation 4 ML VIAL.NEB IH PRN (05:07)
[2018-08-09] MEDS: Levothyroxine 50 MCG TAB PO SCH (05:43)
[2018-08-09] MEDS: Insulin Regular 100 units/ml SC SCH ×4 (06:38→21:14)
[2018-08-09 08:11] LABS: BASO # 0.2 K/uL (0.0-0.2); BASO % 1.3 % (0.0-2.0); EOS # 0.3 K/uL (0.0-0.7); EOS % 2.4 % (0.0-4.0); HEMOGLOBIN 9.2 g/dL (12.0-16.0); LYMPH # 2.7 K/uL (1.0-4.3); LYMPH % 18.4 % (20.0-40.0); MEAN CELL VOLUME 81.4 fl (81.0-99.0); MEAN CORPUSCULAR HGB CONC 31.9 g/dL (33.0-37.0); MEAN PLATELET VOLUME 8.1 fl (7.2-11.7); MONO # 1.2 K/uL (0.0-0.8); MONO % 8.4 % (0.0-10.0); NEUT % 69.5 % (50.0-75.0); NRBC % 0.2 % (0.0-0.0); RBC 3.56 Mil/uL (3.80-5.20); RED CELL DISTRIBUTION WIDTH 15.5 % (11.5-14.5); WHITE BLOOD COUNT 14.4 K/uL (4.8-10.8)
[2018-08-09] MEDS: Multivitamin With Minerals Tab PO SCH (08:22)
[2018-08-09] MEDS: Pantoprazole 20 mg EC Tab PO SCH (08:22)
[2018-08-09] MEDS: Aspirin 325 mg EC Tablets PO SCH (08:23)
[2018-08-09] MEDS: Enoxaparin 40 mg Syringe SC SCH (08:24)
[2018-08-09 08:26] LABS: ALBUMIN 3.6 g/dL (3.5-5.0); ALT/SGPT 64 U/L (9-52); AST/SGOT 37 U/L (14-36); BLOOD UREA NITROGEN 16 mg/dl (7-17); CALCIUM 9.8 mg/dL (8.4-10.2); GFR NON-AFRICAN AMERICAN > 60
--- NOTE | 2018-08-09 08:36 | CP.CCUPN ---
CCU Subjective - Physician Review Events Since Last Encounter (Free Text): 08/09/18 08:31 sedated, intubated, , BP stable, good urine output, labs still pending, CCU Objective - Vital Signs / Intake & Output Vital Signs (Last 4 hours): Vital Signs Pulse Resp BP Pulse Ox 08/09/18 08:24 73 186/77 H 08/09/18 08:22 73 186/77 H 08/09/18 08:21 80 186/77 H 08/09/18 06:00 65 17 160/77 H 100 08/09/18 05:00 71 19 173/82 H 100 Intake and Output (Last 8hrs): Intake & Output 08/08/18 08/09/18 08/09/18 23:59 06:59 14:59 Intake Total Output Total Balance Intake: IV Intake, Piggyback Tube Feeding Free Water Flush Output: Urine Urethral (Ray) - Physical Exam Narrative Physical Exam (Free Text): 08/09/18 08:32 P/E Neck: No JVD Lungs: Rt basal crackels Abdomen: soft, ext: +1 edema Heart: No gallop Head: Positive for: Normocephalic Pupils: Positive for: Sluggish Conjunctiva: Positive for: Normal Ears: Positive for: Normal Mouth: Positive for: Moist Mucous Membranes (ETT tube in place, yellow secretions, OG tube) Nose (External): Positive for: Other Neck: Positive for: Normal Range of Motion Respiratory/Chest: Positive for: Good Air Exchange, Rhonchi. Negative for: Respiratory Distress, Rales Cardiovascular: Positive for: Regular Rate and Rhythm. Negative for: Murmurs Abdomen: Positive for: Distention, Normal Bowel Sounds Upper Extremity: Positive for: Edema (trace pitting in upper extremities bl), NORMAL PULSES, Capillary Refill < 2s Lower Extremity: Positive for: NORMAL PULSES, Capillary Refill < 2 s. Negative for: Edema Neurological: Positive for: Other (Eyes open spotnaneously, non verbal, withdraws from pain) Skin: Positive for: Warm, Dry, Rashes Psychiatric: Positive for: Alert (intermittently), Lethargic. Negative for: Oriented x 3, Agitated - Medications Active Medications: Active Medications Generic Name Dose Route Start Last Admin Trade Name Freq PRN Reason Stop Dose Admin Acetaminophen 650 mg 08/03/18 03:33 08/05/18 05:35 Tylenol 325mg Tab PO 650 mg Q6 PRN Administration Fever >100.4 F Albuterol Sulfate 2.5 mg 08/03/18 02:00 08/09/18 01:00 EST Albuterol 0.083% Inhal Veronica (2.5 Mg/3 Ml) Ud INH 2.5 mg RQ6 [facility] Administration Amlodipine Besylate 10 mg 08/03/18 09:00 08/09/18 08:24 Norvasc PO 10 mg DAILY [facility] Administration Aspirin 325 mg 08/03/18 09:00 08/09/18 08:23 Ecotrin PO 325 mg DAILY [facility] Administration Atorvastatin Calcium 10 mg 08/03/18 22:00 08/08/18 21:00 Lipitor PO 10 mg HS [facility] Administration Carvedilol 25 mg 08/03/18 09:00 08/09/18 08:21 Coreg PO 25 mg BID [facility] Administration Dextrose 0 ml 08/03/18 03:35 Dextrose 50% Inj IV STAT PRN Hypoglycemia Protocol Protocol Dextrose 0 gm 08/03/18 03:35 Glutose 15 PO ONCE PRN Hypoglycemia Protocol Protocol Divalproex Sodium 1,250 mg 08/03/18 22:00 08/03/18 21:56 Depakote Er(Once Daily) PO 1,250 mg HS [facility] Administration Enoxaparin Sodium 40 mg 08/09/18 09:00 08/09/18 08:24 Lovenox SC 40 mg DAILY [facility] Administration Protocol Escitalopram Oxalate 10 mg 08/03/18 22:00 08/03/18 21:31 Lexapro PO 10 mg HS [facility] Administration Fluticasone Propionate 2 spr 08/03/18 09:00 08/09/18 08:25 Flonase ANIKA 2 spr DAILY [facility] Administration Furosemide 40 mg 08/06/18 09:00 08/09/18 08:24 Lasix IVP 40 mg BID [facility] Administration Glucagon 0 mg 08/03/18 03:35 Glucagen Diagnostic Kit IM STAT PRN Hypoglycemia Protocol Protocol Vancomycin HCl 1 gm/ Sodium 250 mls @ 250 mls/hr 08/03/18 11:00 08/08/18 22:01 Chloride IVPB 250 mls/hr Q12H [facility] Administration Protocol Piperacillin Sod/Tazobactam 100 mls @ 100 mls/hr 08/03/18 11:00 08/09/18 08:27 Sod 3.375 gm/ Sodium Chloride IVPB 100 mls/hr Q8 [facility] Administration Protocol Levetiracetam 1,000 mg/ Sodium 110 mls @ 110 mls/hr 08/06/18 15:00 08/09/18 03:49 Chloride IVPB 110 mls/hr Q12@0300,1500 [facility] Administration Ibuprofen 600 mg 08/03/18 13:30 08/07/18 04:10 Motrin Tab PO 600 mg Q6 PRN Administration Fever >100.4 F Insulin Detemir 15 units 08/03/18 22:00 08/08/18 21:02 Levemir SC 15 u HS [facility] Administration Insulin Human Regular 0 units 08/07/18 11:30 08/09/18 06:38 Humulin R SC 4 units ACHS [facility] Administration Protocol Lactulose 20 gm 08/08/18 17:16 08/08/18 18:09 Enulose PO 20 gm Q12 PRN Administration Constipation Levothyroxine Sodium 50 mcg 08/04/18 06:30 08/09/18 05:43 Synthroid PO 50 mcg DAILY@0630 [facility] Administration Lorazepam 2 mg 08/06/18 16:28 08/08/18 20:35 Ativan IVP 2 mg Q6 PRN Administration Agitation Losartan Potassium 50 mg 08/03/18 09:00 08/09/18 08:22 Cozaar PO 50 mg DAILY [facility] Administration Morphine Sulfate 4 mg 08/07/18 15:59 08/07/18 16:04 Morphine IVP 4 mg Q6 PRN Administration Agitation Multivitamins/Minerals 1 tab 08/03/18 09:00 08/09/18 08:22 Therapeutic-M Tab PO 1 tab DAILY [facility] Administration Pantoprazole Sodium 20 mg 08/03/18 09:00 08/09/18 08:22 Protonix Ec Tab PO 20 mg DAILY [facility] Administration Sitagliptin Phosphate 100 mg 08/03/18 22:00 08/08/18 21:00 Januvia PO 100 mg HS [facility] Administration - Patient Studies Lab Studies: Microbiology Studies 08/03/18 16:41 Blood Culture - Final Blood NO GROWTH AFTER 5 DAYS Gram Stain - Final TEST NOT PERFORMED 08/03/18 16:31 Blood Culture - Final Blood NO GROWTH AFTER 5 DAYS Gram Stain - Final TEST NOT PERFORMED 08/06/18 08:21 Gram Stain - Final Sputum Induced Sputum Culture - Final No growth. Lab Studies 08/09/18 08/09/18 08/09/18 Range/Units 06:00 06:00 05:15 WBC 14.4 H (4.8-10.8) K/uL RBC 3.56 L (3.80-5.20) Mil/uL Hgb 9.2 L (12.0-16.0) g/dL Hct 29.0 L (34.0-47.0) % MCV 81.4 D (81.0-99.0) fl MCH 26.0 L (27.0-31.0) pg MCHC 31.9 L (33.0-37.0) g/dL RDW 15.5 H (11.5-14.5) % Plt Count 621 H (130-400) K/uL MPV 8.1 (7.2-11.7) fl Neut % (Auto) 69.5 (50.0-75.0) % Lymph % (Auto) 18.4 L (20.0-40.0) % [place] % (Auto) 8.4 (0.0-10.0) % Eos % (Auto) 2.4 (0.0-4.0) % Baso % (Auto) 1.3 (0.0-2.0) % Neut # (Auto) 10.0 H (1.8-7.0) K/uL Lymph # (Auto) 2.7 (1.0-4.3) K/uL [place] # (Auto) 1.2 H (0.0-0.8) K/uL Eos # (Auto) 0.3 (0.0-0.7) K/uL Baso # (Auto) 0.2 (0.0-0.2) K/uL Sodium 141 (132-148) mmol/l Potassium 3.8 (3.6-5.0) MMOL/L Chloride 99 (98-107) mmol/L Carbon Dioxide 33 H (22-30) mmol/L Anion Gap 13 (10-20) BUN 16 (7-17) mg/dl Creatinine 0.6 L (0.7-1.2) mg/dl Est GFR ( Amer) > 60 Est GFR (Non-Af Amer) > 60 POC Glucose (mg/dL) 256 H (65-110) mg/dL Random Glucose 239 H (65-105) mg/dL Calcium 9.8 (8.4-10.2) mg/dL Total Bilirubin 0.3 (0.2-1.3) mg/dl AST 37 H (14-36) U/L ALT 64 H D (9-52) U/L Alkaline Phosphatase 162 H (38-126) U/L Total Protein 7.3 (6.3-8.2) G/DL Albumin 3.6 (3.5-5.0) g/dL Globulin 3.7 (2.2-3.9) gm/dL Albumin/Globulin Ratio 1.0 (1.0-2.1) 08/08/18 08/08/18 08/08/18 Range/Units 20:52 17:02 11:30 WBC (4.8-10.8) K/uL RBC (3.80-5.20) Mil/uL Hgb (12.0-16.0) g/dL Hct (34.0-47.0) % MCV (81.0-99.0) fl MCH (27.0-31.0) pg MCHC (33.0-37.0) g/dL RDW (11.5-14.5) % Plt Count (130-400) K/uL MPV (7.2-11.7) fl Neut % (Auto) (50.0-75.0) % Lymph % (Auto) (20.0-40.0) % [place] % (Auto) (0.0-10.0) % Eos % (Auto) (0.0-4.0) % Baso % (Auto) (0.0-2.0) % Neut # (Auto) (1.8-7.0) K/uL Lymph # (Auto) (1.0-4.3) K/uL [place] # (Auto) (0.0-0.8) K/uL Eos # (Auto) (0.0-0.7) K/uL Baso # (Auto) (0.0-0.2) K/uL Sodium (132-148) mmol/l Potassium (3.6-5.0) MMOL/L Chloride (98-107) mmol/L Carbon Dioxide (22-30) mmol/L Anion Gap (10-20) BUN (7-17) mg/dl Creatinine (0.7-1.2) mg/dl Est GFR ( Amer) Est GFR (Non-Af Amer) POC Glucose (mg/dL) 234 H 250 H 222 H (65-110) mg/dL Random Glucose (65-105) mg/dL Calcium (8.4-10.2) mg/dL Total Bilirubin (0.2-1.3) mg/dl AST (14-36) U/L ALT (9-52) U/L Alkaline Phosphatase (38-126) U/L Total Protein (6.3-8.2) G/DL Albumin (3.5-5.0) g/dL Globulin (2.2-3.9) gm/dL Albumin/Globulin Ratio (1.0-2.1) Laboratory Results - last 24 hr 08/08/18 08/08/18 08/08/18 11:30 17:02 20:52 WBC RBC Hgb Hct MCV MCH MCHC RDW Plt Count MPV Neut % (Auto) Lymph % (Auto) [place] % (Auto) Eos % (Auto) Baso % (Auto) Neut # (Auto) Lymph # (Auto) [place] # (Auto) Eos # (Auto) Baso # (Auto) Sodium Potassium Chloride Carbon Dioxide Anion Gap BUN Creatinine Est GFR ( Amer) Est GFR (Non-Af Amer) POC Glucose (mg/dL) 222 H 250 H 234 H Random Glucose Calcium Total Bilirubin AST ALT Alkaline Phosphatase Total Protein Albumin Globulin Albumin/Globulin Ratio 08/09/18 08/09/18 08/09/18 05:15 06:00 06:00 WBC 14.4 H RBC 3.56 L Hgb 9.2 L Hct 29.0 L MCV 81.4 D MCH 26.0 L MCHC 31.9 L RDW 15.5 H Plt Count 621 H MPV 8.1 Neut % (Auto) 69.5 Lymph % (Auto) 18.4 L [place] % (Auto) 8.4 Eos % (Auto) 2.4 Baso % (Auto) 1.3 Neut # (Auto) 10.0 H Lymph # (Auto) 2.7 [place] # (Auto) 1.2 H Eos # (Auto) 0.3 Baso # (Auto) 0.2 Sodium 141 Potassium 3.8 Chloride 99 Carbon Dioxide 33 H Anion Gap 13 BUN 16 Creatinine 0.6 L Est GFR ( Amer) > 60 Est GFR (Non-Af Amer) > 60 POC Glucose (mg/dL) 256 H Random Glucose 239 H Calcium 9.8 Total Bilirubin 0.3 AST 37 H ALT 64 H D Alkaline Phosphatase 162 H Total Protein 7.3 Albumin 3.6 Globulin 3.7 Albumin/Globulin Ratio 1.0 Fingerstick Blood Sugar Results: 256 Critical Care Progress Note - Nutrition Nutrition: Nutrition Category Date Time Status NPO Diet [DIET] Diets 08/04/18 Breakfast Active Assessment/Plan - Assessment and Plan (Free Text) Assessment: Assessment and Plan: s/p Cardiac arrest, Resp failure -s/p Code Blue ( 3 doses of epinephrine) -Intubated , off sedation -EKG wnl and troponin neg x2 on vent: Fio: .50 , was 80, VT 450 12/m PEEP 5 seizures -neuro following, no more seizure activity - Keppra 1000 mg Q12 - Clozapine discontinued - Pneumonia, - CXR significant for for Interval patchy atelectasis or infiltrate right base and left perihilar/medial basilar distributions, as well as pleural effusions - On azithromycin, vancomycin and zosyn - Blood cultures: neg - Urine culture no growth - Legionella negative - Pulmonary consulted - CHF/edema fluid overloaded; improving -IV lasix given -Strict I&Os -Renal function stable DM -Chronic -Metformin on hold, continue with other home meds -Insulin coverage scale and hypoglycemia protocol -Hypoglycemia protocol HTN -Chronic -Continue with home meds Schizophrenia -Chronic -Home meds held for now -Depakote levels normal DVT prophylaxis -Lovenox SQ
--- NOTE | 2018-08-09 08:50 | RAD ---
Date of service: 08/09/2018 HISTORY: intubated COMPARISON: 08/08/2018 FINDINGS: LUNGS: Mild bilateral interstitial changes. PLEURA: No significant pleural effusion identified, no pneumothorax apparent. CARDIOVASCULAR: No aortic atherosclerotic calcification present. Normal cardiac size. No pulmonary vascular congestion. OSSEOUS STRUCTURES: No significant abnormalities. VISUALIZED UPPER ABDOMEN: Normal. OTHER FINDINGS: ETT above rojas. NG tube in stomach. IMPRESSION: Mild bilateral interstitial changes.
--- NOTE | 2018-08-09 11:00 | CP.PCM.PN ---
Subjective - Date & Time of Evaluation Date of Evaluation: 08/09/18 Time of Evaluation: 11:00 - Subjective Subjective: Remains intubated less lethargic today opens eyes to verbal stimuli tolerating OGT feeding no fever + constipation Objective - Vital Signs/Intake and Output Vital Signs (last 24 hours): Temp Pulse Resp BP Pulse Ox 99 F 73 17 186/77 H 100 08/09/18 04:00 08/09/18 08:24 08/09/18 06:00 08/09/18 08:24 08/09/18 06:00 Intake and Output: 08/09/18 08/09/18 06:59 18:59 Intake Total Output Total Balance - Medications Medications: Current Medications Acetaminophen (Tylenol 325mg Tab) 650 mg PO Q6 PRN PRN Reason: Fever >100.4 F Last Admin: 08/05/18 05:35 Dose: 650 mg Albuterol Sulfate (Albuterol 0.083% Inhal Veronica (2.5 Mg/3 Ml) Ud) 2.5 mg INH RQ6 [facility] Last Admin: 08/09/18 01:00 EST Dose: 2.5 mg Amlodipine Besylate (Norvasc) 10 mg PO DAILY [facility] Last Admin: 08/09/18 08:24 Dose: 10 mg Aspirin (Ecotrin) 325 mg PO DAILY [facility] Last Admin: 08/09/18 08:23 Dose: 325 mg Atorvastatin Calcium (Lipitor) 10 mg PO HS [facility] Last Admin: 08/08/18 21:00 Dose: 10 mg Carvedilol (Coreg) 25 mg PO BID [facility] Last Admin: 08/09/18 08:21 Dose: 25 mg Dextrose (Dextrose 50% Inj) 0 ml IV STAT PRN; Protocol PRN Reason: Hypoglycemia Protocol Dextrose (Glutose 15) 0 gm PO ONCE PRN; Protocol PRN Reason: Hypoglycemia Protocol Divalproex Sodium (Depakote Er(Once Daily)) 1,250 mg PO HS [facility] Last Admin: 08/03/18 21:56 Dose: 1,250 mg Enoxaparin Sodium (Lovenox) 40 mg SC DAILY [facility]; Protocol Last Admin: 08/09/18 08:24 Dose: 40 mg Escitalopram Oxalate (Lexapro) 10 mg PO HS [facility] Last Admin: 08/03/18 21:31 Dose: 10 mg Fluticasone Propionate (Flonase) 2 spr ANIKA DAILY [facility] Last Admin: 08/09/18 08:25 Dose: 2 spr Furosemide (Lasix) 40 mg IVP BID [facility] Last Admin: 08/09/18 08:24 Dose: 40 mg Glucagon (Glucagen Diagnostic Kit) 0 mg IM STAT PRN; Protocol PRN Reason: Hypoglycemia Protocol Vancomycin HCl 1 gm/ Sodium (Chloride) 250 mls @ 250 mls/hr IVPB Q12H [facility]; Protocol Last Admin: 08/08/18 22:01 Dose: 250 mls/hr Piperacillin Sod/Tazobactam (Sod 3.375 gm/ Sodium Chloride) 100 mls @ 100 mls/hr IVPB Q8 [facility]; Protocol Last Admin: 08/09/18 08:27 Dose: 100 mls/hr Levetiracetam 1,000 mg/ Sodium (Chloride) 110 mls @ 110 mls/hr IVPB Q12@0300,1500 [facility] Last Admin: 08/09/18 03:49 Dose: 110 mls/hr Ibuprofen (Motrin Tab) 600 mg PO Q6 PRN PRN Reason: Fever >100.4 F Last Admin: 08/07/18 04:10 Dose: 600 mg Insulin Detemir (Levemir) 15 units SC HS [facility] Last Admin: 08/08/18 21:02 Dose: 15 u Insulin Human Regular (Humulin R) 0 units SC [facility]; Protocol Last Admin: 08/09/18 06:38 Dose: 4 units Lactulose (Enulose) 20 gm PO Q12 PRN PRN Reason: Constipation Last Admin: 08/08/18 18:09 Dose: 20 gm Levothyroxine Sodium (Synthroid) 50 mcg PO DAILY@0630 [facility] Last Admin: 08/09/18 05:43 Dose: 50 mcg Lorazepam (Ativan) 2 mg IVP Q6 PRN PRN Reason: Agitation Last Admin: 08/09/18 09:01 Dose: 2 mg Losartan Potassium (Cozaar) 50 mg PO DAILY [facility] Last Admin: 08/09/18 08:22 Dose: 50 mg Morphine Sulfate (Morphine) 4 mg IVP Q6 PRN PRN Reason: Agitation Last Admin: 08/07/18 16:04 Dose: 4 mg Multivitamins/Minerals (Therapeutic-M Tab) 1 tab PO DAILY [facility] Last Admin: 08/09/18 08:22 Dose: 1 tab Pantoprazole Sodium (Protonix Ec Tab) 20 mg PO DAILY [facility] Last Admin: 08/09/18 08:22 Dose: 20 mg Sitagliptin Phosphate (Januvia) 100 mg PO HS [facility] Last Admin: 08/08/18 21:00 Dose: 100 mg - Labs Labs: 08/09/18 06:00 08/09/18 06:00 PT 12.2 Seconds (9.8-13.1) 08/04/18 00:30 INR 1.1 08/04/18 00:30 APTT 31.5 Seconds (25.6-37.1) 08/02/18 22:20 - Constitutional Appears: more awake today, Chronically Ill - Head Exam Head Exam: NORMAL INSPECTION, NORMOCEPHALIC - Eye Exam Eye Exam: EOMI, Normal appearance, PERRL Pupil Exam: NORMAL ACCOMODATION - ENT Exam ENT Exam: Mucous Membranes Dry, Normal External Ear Exam - Neck Exam Neck Exam: Full ROM. absent: Meningismus - Respiratory Exam Respiratory Exam: Rales, Rhonchi, NORMAL BREATHING PATTERN. absent: Wheezes - Cardiovascular Exam Cardiovascular Exam: REGULAR RHYTHM, +S1, +S2 - GI/Abdominal Exam GI & Abdominal Exam: Soft, Normal Bowel Sounds - Extremities Exam Extremities Exam: Normal Capillary Refill - Neurological Exam Neurological Exam: Awake opens eyes to verbal stimuli, - Psychiatric Exam Psychiatric exam: less agitated than yesterday - Skin Skin Exam: Dry, Normal Color, Warm Assessment and Plan - Assessment and Plan (Free Text) Assessment: 62 yo female from a [facility], with hx of DM II, schizophrenia and HTN; initially admitted for sepsis and pneumonia. Initial labs were significant for leukocytosis with bandemia; CXR showed atelectasis vs infiltrate and pt was sta rted on vancomycin, zosyn and zithromax IV. During the admission, pt was found to be bradycardic and became unresponsive. Code Blue was called for suspected Pulseless Electrical Activity; compressions done ,was achieved after 3 rounds of epinephrine. She was then transferred to ICU. When weaned off sedation, mental status changes appreciated per family when compared to her baseline. Neurology was consulted and EEG was ordered, which showed left frontal focal seizures. MRI cannot be done due to body habitus. s/p Cardio/Respiratory Arrest -s/p Code Blue ( 3 doses of epinephrine) -Intubated , off sedation -EKG wnl and troponin neg x2 Left frontal focal seizures -As seen on EEG; as per neuro due to pts infection and antipsychotic lowered seizure threshold; appear to have resolved now - Keppra 1000 mg Q12 - Clozapine discontinued - Neuro on board AMS prob Encephalopathy due to Sepsis Dr Keller rec MRI of Brain to r/o Encephalitis - unable to do due to body habitus ( unable to fit into MRI) empirically strted on IV Acyclovir as discussed with Dr Castorena Pneumonia, likely bacterial - CXR significant for for Interval patchy atelectasis or infiltrate right base and left perihilar/medial basilar distributions, as well as pleural effusions - ID on board; Pt received azithromycin, vancomycin and zosyn , Dr Castorena d/c IV Vanco today 08/09, completed 1 wk of IV Azithro - Blood cultures: neg - Urine culture no growth - Legionella negative - Pulmonary consulted - 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, QF gold Indeterminate Sepsis sec to PNA (POA) -Leukocytosis with bandemia -Continue with IV antibiotics -ID on board Anasarca -Likely secondary to fluid overloaded; improving -IV lasix given -Strict I&Os -Renal function stable Hypothyrodism -Chronic, uncontrolled -Levothyroxine 50mcg daily - TSH sl low - dose of Levothyroxine decreased DM -Chronic -Metformin on hold - start Levemir -Insulin coverage scale and hypoglycemia protocol -Hypoglycemia protocol HTN uncontrolled - cont Lasix, Amlodipine, Coreg - increase Losartan to 100 mg daily Schizophrenia -Chronic -Home meds held for now -Depakote levels normal DVT prophylaxis -Lovenox SQ
[2018-08-09 12:00] VITALS: BMI 33.7
--- NOTE | 2018-08-09 12:48 | CP.PCM.PN ---
Subjective - Date & Time of Evaluation Date of Evaluation: 08/09/18 Time of Evaluation: 07:00 - Subjective Subjective: easily arousable on vent remains afebrile NAD FiO2 down to 50% Objective - Vital Signs/Intake and Output Vital Signs (last 24 hours): Temp Pulse Resp BP Pulse Ox 97.9 F 68 24 165/110 H 99 08/09/18 12:00 08/09/18 12:00 08/09/18 12:00 08/09/18 12:00 08/09/18 12:00 Intake and Output: 08/09/18 08/09/18 06:59 18:59 Intake Total 910 Output Total 300 Balance 610 - Medications Medications: Current Medications Acetaminophen (Tylenol 325mg Tab) 650 mg PO Q6 PRN PRN Reason: Fever >100.4 F Last Admin: 08/05/18 05:35 Dose: 650 mg Albuterol Sulfate (Albuterol 0.083% Inhal Veronica (2.5 Mg/3 Ml) Ud) 2.5 mg INH RQ6 [facility] Last Admin: 08/09/18 01:00 EST Dose: 2.5 mg Amlodipine Besylate (Norvasc) 10 mg PO DAILY [facility] Last Admin: 08/09/18 08:24 Dose: 10 mg Aspirin (Ecotrin) 325 mg PO DAILY [facility] Last Admin: 08/09/18 08:23 Dose: 325 mg Atorvastatin Calcium (Lipitor) 10 mg PO HS [facility] Last Admin: 08/08/18 21:00 Dose: 10 mg Carvedilol (Coreg) 25 mg PO BID [facility] Last Admin: 08/09/18 08:21 Dose: 25 mg Dextrose (Dextrose 50% Inj) 0 ml IV STAT PRN; Protocol PRN Reason: Hypoglycemia Protocol Dextrose (Glutose 15) 0 gm PO ONCE PRN; Protocol PRN Reason: Hypoglycemia Protocol Divalproex Sodium (Depakote Er(Once Daily)) 1,250 mg PO HS [facility] Last Admin: 08/03/18 21:56 Dose: 1,250 mg Enoxaparin Sodium (Lovenox) 40 mg SC DAILY [facility]; Protocol Last Admin: 08/09/18 08:24 Dose: 40 mg Escitalopram Oxalate (Lexapro) 10 mg PO HS [facility] Last Admin: 08/03/18 21:31 Dose: 10 mg Fluticasone Propionate (Flonase) 2 spr ANIKA DAILY [facility] Last Admin: 08/09/18 08:25 Dose: 2 spr Furosemide (Lasix) 40 mg IVP BID [facility] Last Admin: 08/09/18 08:24 Dose: 40 mg Glucagon (Glucagen Diagnostic Kit) 0 mg IM STAT PRN; Protocol PRN Reason: Hypoglycemia Protocol Vancomycin HCl 1 gm/ Sodium (Chloride) 250 mls @ 250 mls/hr IVPB Q12H [facility]; Protocol Last Admin: 08/09/18 11:05 Dose: 250 mls/hr Piperacillin Sod/Tazobactam (Sod 3.375 gm/ Sodium Chloride) 100 mls @ 100 mls/hr IVPB Q8 [facility]; Protocol Last Admin: 08/09/18 08:27 Dose: 100 mls/hr Levetiracetam 1,000 mg/ Sodium (Chloride) 110 mls @ 110 mls/hr IVPB Q12@0300,1500 [facility] Last Admin: 08/09/18 03:49 Dose: 110 mls/hr Acyclovir 800 mg/ Sodium (Chloride) 250 mls @ 250 mls/hr IVPB Q8 [facility]; Protocol Ibuprofen (Motrin Tab) 600 mg PO Q6 PRN PRN Reason: Fever >100.4 F Last Admin: 08/07/18 04:10 Dose: 600 mg Insulin Detemir (Levemir) 20 units SC HS [facility] Insulin Human Regular (Humulin R) 0 units SC ACHS [facility]; Protocol Last Admin: 08/09/18 11:40 Dose: 3 units Lactulose (Enulose) 20 gm PO Q12 PRN PRN Reason: Constipation Last Admin: 08/09/18 11:03 Dose: 20 gm Levothyroxine Sodium (Synthroid) 50 mcg PO DAILY@0630 [facility] Last Admin: 08/09/18 05:43 Dose: 50 mcg Lorazepam (Ativan) 2 mg IVP Q6 PRN PRN Reason: Agitation Last Admin: 08/09/18 09:01 Dose: 2 mg Losartan Potassium (Cozaar) 50 mg PO DAILY [facility] Last Admin: 08/09/18 08:22 Dose: 50 mg Morphine Sulfate (Morphine) 4 mg IVP Q6 PRN PRN Reason: Agitation Last Admin: 08/07/18 16:04 Dose: 4 mg Multivitamins/Minerals (Therapeutic-M Tab) 1 tab PO DAILY [facility] Last Admin: 08/09/18 08:22 Dose: 1 tab Pantoprazole Sodium (Protonix Ec Tab) 20 mg PO DAILY [facility] Last Admin: 08/09/18 08:22 Dose: 20 mg Sitagliptin Phosphate (Januvia) 100 mg PO HS [facility] Last Admin: 08/08/18 21:00 Dose: 100 mg - Labs Labs: 08/09/18 06:00 08/09/18 06:00 PT 12.2 Seconds (9.8-13.1) 08/04/18 00:30 INR 1.1 08/04/18 00:30 APTT 31.5 Seconds (25.6-37.1) 08/02/18 22:20 - Constitutional Appears: Non-toxic, Chronically Ill - Head Exam Head Exam: NORMOCEPHALIC - Eye Exam Eye Exam: absent: Scleral icterus - ENT Exam ENT Exam: Mucous Membranes Dry - Neck Exam Neck Exam: absent: Lymphadenopathy - Respiratory Exam Respiratory Exam: Decreased Breath Sounds - Cardiovascular Exam Cardiovascular Exam: REGULAR RHYTHM - GI/Abdominal Exam GI & Abdominal Exam: Distended, Soft. absent: Tenderness - Rectal Exam Rectal Exam: Deferred - Exam Exam: NORMAL INSPECTION - Extremities Exam Extremities Exam: absent: Pedal Edema - Back Exam Back Exam: absent: CVA tenderness (L), CVA tenderness (R) Assessment and Plan (1) Pneumonia Status: Acute (2) Severe sepsis Status: Acute - Assessment and Plan (Free Text) Assessment: cont iv rx for sepsis/ pneumonia cultures neg thus far acyclovir added for possible encephalitis AFB pending
[2018-08-09 14:15] LABS: ABG ALLEN TEST YES; ARTERIAL BLOOD GAS HCO3 31.9 mmol/L (21-28); ARTERIAL BLOOD GAS HEMOGLOBIN 9.9 g/dL (11.7-17.4); ARTERIAL BLOOD GAS O2 CAPACITY 14.1 mL/dL (16-24); ARTERIAL BLOOD GAS O2 CONTENT 13.9 ML/dL (15-23); ARTERIAL BLOOD GAS O2 SAT 98.7 % (95-98); ARTERIAL BLOOD GAS PCO2 52 mm/Hg (35-45); ARTERIAL BLOOD GAS PH 7.43 (7.35-7.45); ARTERIAL BLOOD GAS PO2 190 mm/Hg (80-100); ARTERIAL BLOOD GAS TCO2 36.1 mmol/L (22-28)
[2018-08-09] MEDS ORDERED: Azithromycin 500 MG in Sodium Chloride 0.9% 250 ML IVPB STA (16:28)
[2018-08-09] MEDS: Insulin Detemir 100 Units/ml Inj SC SCH (21:15)
[2018-08-10] MEDS: Piperacillin/Tazobact 3.375 GM in Sodium Chloride 0.9% 100 ML IVPB SCH ×3 (01:14→16:33)
[2018-08-10] MEDS: Albuterol 0.083% Inhal Sol (2.5 mg/3 mL) UD INH SCH (01:34)
[2018-08-10] MEDS: levETIRAcetam 1,000 MG in Sodium Chloride 0.9% 100 ML IVPB SCH ×2 (03:08→15:50)
[2018-08-10 05:08] LABS: ABG ALLEN TEST YES; ARTERIAL BLOOD GAS HEMOGLOBIN 9.5 g/dL (11.7-17.4); ARTERIAL BLOOD GAS O2 CAPACITY 13.3 mL/dL (16-24); ARTERIAL BLOOD GAS O2 SAT 97.6 % (95-98); ARTERIAL BLOOD GAS PCO2 47 mm/Hg (35-45); ARTERIAL BLOOD GAS PH 7.45 (7.35-7.45); ARTERIAL BLOOD GAS PO2 81 mm/Hg (80-100); ARTERIAL BLOOD GAS TCO2 34.1 mmol/L (22-28)
[2018-08-10 05:54] LABS: BASO # 0.2 K/uL (0.0-0.2); BASO % 1.1 % (0.0-2.0); EOS # 0.2 K/uL (0.0-0.7); EOS % 1.1 % (0.0-4.0); HEMOGLOBIN 9.8 g/dL (12.0-16.0); LYMPH # 3.2 K/uL (1.0-4.3); LYMPH % 18.8 % (20.0-40.0); MEAN CELL VOLUME 79.5 fl (81.0-99.0); MEAN CORPUSCULAR HEMOGLOBIN 25.7 pg (27.0-31.0); MEAN CORPUSCULAR HGB CONC 32.3 g/dL (33.0-37.0); MEAN PLATELET VOLUME 7.8 fl (7.2-11.7); MONO # 0.9 K/uL (0.0-0.8); MONO % 5.5 % (0.0-10.0); NEUT # 12.5 K/uL (1.8-7.0); NEUT % 73.5 % (50.0-75.0); NRBC % 0.1 % (0.0-0.0); RBC 3.8 Mil/uL (3.80-5.20); RED CELL DISTRIBUTION WIDTH 15.5 % (11.5-14.5)
[2018-08-10 06:25] LABS: BLOOD UREA NITROGEN 22 mg/dl (7-17); CALCIUM 9.6 mg/dL (8.4-10.2); GFR NON-AFRICAN AMERICAN > 60
[2018-08-10] MEDS: Levothyroxine 50 MCG TAB PO SCH (06:44)
[2018-08-10] MEDS: Insulin Regular 100 units/ml SC SCH ×4 (06:50→22:06)
--- NOTE | 2018-08-10 08:15 | RAD ---
Date of service: 08/10/2018 HISTORY: ETT placement COMPARISON: Portable chest 08/09/2018. FINDINGS: LUNGS: Endotracheal and nasogastric tubes are not significantly changed in position. Prior interstitial pattern not recognized currently. Atelectasis is noted at the medial right base with remaining lung mckeon clear. Mild right hemidiaphragm elevation reiterated. PLEURA: No significant pleural effusion identified, no pneumothorax apparent. CARDIOVASCULAR: No aortic atherosclerotic calcification present. Normal cardiac size. No pulmonary vascular congestion. OSSEOUS STRUCTURES: No significant abnormalities. VISUALIZED UPPER ABDOMEN: Normal. OTHER FINDINGS: None. IMPRESSION: There atelectasis medial right base. Mild right hemidiaphragm elevation stable. Remaining lung mckeon unremarkable. No acute cardiovascular changes.
[2018-08-10 08:55] LABS: HEPATITIS B SURFACE AG Negative (NEGATIVE)
[2018-08-10 09:00] LABS: HEPATITIS A IGM NEGATIVE (NEGATIVE); HEPATITIS B CORE AB NEGATIVE (NEGATIVE)
[2018-08-10 09:12] LABS: HEPATITIS C ANTIBODY NEGATIVE (NEGATIVE)
[2018-08-10] MEDS: Enoxaparin 40 mg Syringe SC SCH (09:13)
[2018-08-10] MEDS: Multivitamin With Minerals Tab PO SCH (09:21)
[2018-08-10] MEDS: Pantoprazole 20 mg EC Tab PO SCH (09:21)
[2018-08-10] MEDS: Aspirin 325 mg EC Tablets PO SCH (09:24)
--- NOTE | 2018-08-10 16:57 | CP.PCM.PN ---
Subjective - Date & Time of Evaluation Date of Evaluation: 08/10/18 Time of Evaluation: 07:45 - Subjective Subjective: pt stable neurologically more awake and alert hd stable nad Objective - Vital Signs/Intake and Output Vital Signs (last 24 hours): Temp Pulse Resp BP Pulse Ox 98.7 F 67 24 169/85 H 100 08/10/18 16:00 08/10/18 16:00 08/10/18 16:00 08/10/18 16:41 08/10/18 16:00 Vitals Reviewed GEN: intubated, awake HEENT: NCAT, PERRL, EOMI HEART: RRR, +S1S2, NO MRG LUNG: CTAB, NO WRR ABD: soft, NT, ND, No HSM, No masses EXT: normal pedal pulses NEURO: awake, alert SKIN: warm, dry PSYCH: unable to assess Intake and Output: 08/10/18 08/10/18 06:59 18:59 Intake Total 1720 850 Output Total 700 Balance 1020 850 - Medications Medications: Current Medications Acetaminophen (Tylenol 325mg Tab) 650 mg PO Q6 PRN PRN Reason: Fever >100.4 F Last Admin: 08/05/18 05:35 Dose: 650 mg Amlodipine Besylate (Norvasc) 10 mg PO DAILY [facility] Last Admin: 08/10/18 09:20 Dose: 10 mg Aspirin (Ecotrin) 325 mg PO DAILY [facility] Last Admin: 08/10/18 09:24 Dose: 325 mg Atorvastatin Calcium (Lipitor) 10 mg PO HS [facility] Last Admin: 08/09/18 21:16 Dose: 10 mg Carvedilol (Coreg) 25 mg PO BID [facility] Last Admin: 08/10/18 09:24 Dose: 25 mg Dextrose (Dextrose 50% Inj) 0 ml IV STAT PRN; Protocol PRN Reason: Hypoglycemia Protocol Dextrose (Glutose 15) 0 gm PO ONCE PRN; Protocol PRN Reason: Hypoglycemia Protocol Divalproex Sodium (Depakote Er(Once Daily)) 1,250 mg PO [facility] Last Admin: 08/03/18 21:56 Dose: 1,250 mg Enoxaparin Sodium (Lovenox) 40 mg SC DAILY [facility]; Protocol Last Admin: 08/10/18 09:13 Dose: 40 mg Escitalopram Oxalate (Lexapro) 10 mg PO [facility] Last Admin: 08/03/18 21:31 Dose: 10 mg Fluticasone Propionate (Flonase) 2 spr ANIKA DAILY [facility] Last Admin: 08/10/18 09:23 Dose: 2 spr Furosemide (Lasix) 40 mg IVP BID [facility] Last Admin: 08/10/18 16:41 Dose: 40 mg Glucagon (Glucagen Diagnostic Kit) 0 mg IM STAT PRN; Protocol PRN Reason: Hypoglycemia Protocol Piperacillin Sod/Tazobactam (Sod 3.375 gm/ Sodium Chloride) 100 mls @ 100 mls/hr IVPB Q8 [facility]; Protocol Last Admin: 08/10/18 16:33 Dose: 100 mls/hr Levetiracetam 1,000 mg/ Sodium (Chloride) 110 mls @ 110 mls/hr IVPB Q12@0300,1500 [facility] Last Admin: 08/10/18 15:50 Dose: 110 mls/hr Acyclovir 800 mg/ Sodium (Chloride) 250 mls @ 250 mls/hr IVPB Q8 [facility]; Protocol Last Admin: 08/10/18 16:33 Dose: 250 mls/hr Ibuprofen (Motrin Tab) 600 mg PO Q6 PRN PRN Reason: Fever >100.4 F Last Admin: 08/07/18 04:10 Dose: 600 mg Insulin Detemir (Levemir) 20 units SC [facility] Last Admin: 08/09/18 21:15 Dose: 20 units Insulin Human Regular (Humulin R) 0 units SC ACHS [facility]; Protocol Last Admin: 08/10/18 16:35 Dose: 4 units Lactulose (Enulose) 20 gm PO Q12 PRN PRN Reason: Constipation Last Admin: 08/09/18 11:03 Dose: 20 gm Levothyroxine Sodium (Synthroid) 50 mcg PO DAILY@0630 [facility] Last Admin: 08/10/18 06:44 Dose: 50 mcg Losartan Potassium (Cozaar) 100 mg PO DAILY [facility] Last Admin: 08/10/18 09:24 Dose: 100 mg Morphine Sulfate (Morphine) 4 mg IVP Q6 PRN PRN Reason: Agitation Multivitamins/Minerals (Therapeutic-M Tab) 1 tab PO DAILY [facility] Last Admin: 08/10/18 09:21 Dose: 1 tab Pantoprazole Sodium (Protonix Ec Tab) 20 mg PO DAILY [facility] Last Admin: 11/05/18 09:21 Dose: 20 mg Sitagliptin Phosphate (Januvia) 100 mg PO HS [facility] Last Admin: 08/09/18 21:14 Dose: 100 mg - Labs Labs: 08/10/18 04:50 08/10/18 04:50 PT 12.2 Seconds (9.8-13.1) 08/04/18 00:30 INR 1.1 08/04/18 00:30 APTT 31.5 Seconds (25.6-37.1) 08/02/18 22:20 Assessment and Plan - Assessment and Plan (Free Text) Plan: 62 yo female from a [place] [facility], with hx of DM II, schizophrenia and HTN; initially admitted for sepsis and pneumonia. Initial labs were significant for leukocytosis with bandemia; CXR showed atelectasis vs infiltrate and pt was started on vancomycin, zosyn and zithromax IV. During the admission, pt was found to be bradycardic and became unresponsive. Code Blue was called for suspected Pulseless Electrical Activity; compressions done ,was achieved after 3 rounds of epinephrine. She was then transferred to ICU. When weaned off sedation, mental status changes appreciated per family when compared to her baseline. Neurology was consulted and EEG was ordered, which showed left frontal focal seizures. MRI cannot be done due to body habitus. s/p Cardio/Respiratory Arrest -s/p Code Blue ( 3 doses of epinephrine) -Intubated , off sedation -EKG wnl and troponin neg x2 Left frontal focal seizures -As seen on EEG; as per neuro due to pts infection and antipsychotic lowered seizure threshold; appear to have resolved now - Keppra 1000 mg Q12 - Clozapine discontinued - Neuro on board AMS prob Encephalopathy due to Sepsis Dr Keller rec MRI of Brain to r/o Encephalitis - unable to do due to body habitus ( unable to fit into MRI) empirically strted on IV Acyclovir as discussed with Dr Castorena Pneumonia, likely bacterial - CXR significant for for Interval patchy atelectasis or infiltrate right base and left perihilar/medial basilar distributions, as well as pleural effusions - ID on board; Pt received azithromycin, vancomycin and zosyn , Dr Castorena d/c IV Vanco today 08/09, completed 1 wk of IV Azithro - Blood cultures: neg - Urine culture no growth - Legionella negative - Pulmonary consulted - 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, QF gold Indeterminate Sepsis sec to PNA (POA) -Leukocytosis with bandemia -Continue with IV antibiotics -ID on board Anasarca -Likely secondary to fluid overloaded; improving -IV lasix given -Strict I&Os -Renal function stable Hypothyrodism -Chronic, uncontrolled -Levothyroxine 50mcg daily - TSH sl low - dose of Levothyroxine decreased DM -Chronic -Metformin on hold - start Levemir -Insulin coverage scale and hypoglycemia protocol -Hypoglycemia protocol HTN uncontrolled - cont Lasix, Amlodipine, Coreg - increase Losartan to 100 mg daily Schizophrenia -Chronic -Home meds held for now -Depakote levels normal DVT prophylaxis -Lovenox SQ
[2018-08-10] MEDS: Insulin Detemir 100 Units/ml Inj SC SCH (21:06)
[2018-08-11] MEDS: Piperacillin/Tazobact 3.375 GM in Sodium Chloride 0.9% 100 ML IVPB SCH ×3 (00:42→16:04)
[2018-08-11] MEDS: levETIRAcetam 1,000 MG in Sodium Chloride 0.9% 100 ML IVPB SCH ×2 (03:23→16:02)
[2018-08-11 04:25] LABS: ABG ALLEN TEST YES; ARTERIAL BLOOD GAS HCO3 31.5 mmol/L (21-28); ARTERIAL BLOOD GAS HEMOGLOBIN 9.2 g/dL (11.7-17.4); ARTERIAL BLOOD GAS O2 CAPACITY 12.9 mL/dL (16-24); ARTERIAL BLOOD GAS O2 CONTENT 12.6 ML/dL (15-23); ARTERIAL BLOOD GAS O2 SAT 97.9 % (95-98); ARTERIAL BLOOD GAS PCO2 48 mm/Hg (35-45); ARTERIAL BLOOD GAS PH 7.45 (7.35-7.45); ARTERIAL BLOOD GAS PO2 94 mm/Hg (80-100); ARTERIAL BLOOD GAS TCO2 34.9 mmol/L (22-28)
[2018-08-11 05:27] LABS: HEMOGLOBIN 9.6 g/dL (12.0-16.0); MEAN CELL VOLUME 79.7 fl (81.0-99.0); MEAN CORPUSCULAR HEMOGLOBIN 25.4 pg (27.0-31.0); MEAN CORPUSCULAR HGB CONC 31.8 g/dL (33.0-37.0); RBC 3.78 Mil/uL (3.80-5.20); RED CELL DISTRIBUTION WIDTH 15.8 % (11.5-14.5); WHITE BLOOD COUNT 14.5 K/uL (4.8-10.8)
[2018-08-11 05:44] LABS: CALCIUM 9.7 mg/dL (8.4-10.2)
[2018-08-11] MEDS: Insulin Regular 100 units/ml SC SCH ×3 (06:36→22:21)
[2018-08-11] MEDS: Levothyroxine 50 MCG TAB PO SCH (06:36)
--- NOTE | 2018-08-11 07:41 | CP.CCUPN ---
Addendum entered and electronically signed by Zi Naranjo MD 08/11/18 15:48: Per nurse: pt has Temp of 101 F; Shaw culture ordered. Motrin ordered. Case dw Dr. Sonal Naranjo MD PGY-2 Original Note: <Zi Naranjo - Last Filed: 08/11/18 11:52> CCU Subjective - Physician Review Subjective (Free Text): 08/11/18 08:29 Pt seen and examined at bedside this AM. No significant overnight events. Pt is more alert, eyes tract to verbal stimulus. Remains afebrile. CCU Objective - Vital Signs / Intake & Output Vital Signs (Last 4 hours): Vital Signs Temp Pulse Resp BP Pulse Ox 08/11/18 06:00 64 14 130/70 98 08/11/18 04:00 99 F 62 14 121/60 97 Intake and Output (Last 8hrs): Intake & Output 08/10/18 08/11/18 08/11/18 22:59 06:59 14:59 Intake Total 2360 1270 Output Total 750 1600 Balance 1610 -330 Intake: Intake, Piggyback 800 450 Tube Feeding 960 520 Free Water Flush 600 300 Output: Urine 750 1600 Urethral (Ray) 750 1600 Other: # Bowel Movements 0 - Physical Exam Head: Positive for: Normocephalic Pupils: Positive for: Sluggish Extroacular Muscles: Positive for: EOMI Conjunctiva: Positive for: Normal Ears: Positive for: Normal Mouth: Positive for: Moist Mucous Membranes (ETT tube in place, yellow secretions, OG tube) Nose (External): Positive for: Other Neck: Positive for: Normal Range of Motion Respiratory/Chest: Positive for: Good Air Exchange, Rhonchi, Other (Mechanical ventilation, now on CPAP with Pressure support). Negative for: Respiratory Distress, Rales Cardiovascular: Positive for: Regular Rate and Rhythm. Negative for: Murmurs Abdomen: Positive for: Distention, Normal Bowel Sounds Upper Extremity: Positive for: Edema (trace pitting in upper extremities bl), NORMAL PULSES, Capillary Refill < 2s Lower Extremity: Positive for: NORMAL PULSES, Capillary Refill < 2 s. Negative for: Edema Neurological: Positive for: Other (Eyes open spotnaneously, non verbal, withdraws from pain) Skin: Positive for: Warm, Dry, Rashes Psychiatric: Positive for: Alert (intermittently), Lethargic (improved). Negative for: Oriented x 3, Agitated - Medications Active Medications: Active Medications Generic Name Dose Route Start Last Admin Trade Name Freq PRN Reason Stop Dose Admin Acetaminophen 650 mg 08/03/18 03:33 08/05/18 05:35 Tylenol 325mg Tab PO 650 mg Q6 PRN Administration Fever >100.4 F Amlodipine Besylate 10 mg 08/03/18 09:00 08/10/18 09:20 Norvasc PO 10 mg DAILY LESLIE Administration Aspirin 325 mg 08/03/18 09:00 08/10/18 09:24 Ecotrin PO 325 mg DAILY LESLIE Administration Atorvastatin Calcium 10 mg 08/03/18 22:00 08/10/18 21:06 Lipitor PO 10 mg HS LESLIE Administration Carvedilol 25 mg 08/03/18 09:00 08/10/18 09:24 Coreg PO 25 mg BID LESLIE Administration Dextrose 0 ml 08/03/18 03:35 Dextrose 50% Inj IV STAT PRN Hypoglycemia Protocol Protocol Dextrose 0 gm 08/03/18 03:35 Glutose 15 PO ONCE PRN Hypoglycemia Protocol Protocol Divalproex Sodium 1,250 mg 08/03/18 22:00 08/03/18 21:56 Depakote Er(Once Daily) PO 1,250 mg HS LESLIE Administration Enoxaparin Sodium 40 mg 08/09/18 09:00 08/10/18 09:13 Lovenox SC 40 mg DAILY LESLIE Administration Protocol Escitalopram Oxalate 10 mg 08/03/18 22:00 08/03/18 21:31 Lexapro PO 10 mg HS LESLIE Administration Fluticasone Propionate 2 spr 08/03/18 09:00 08/10/18 09:23 Flonase ANIKA 2 spr DAILY LESLIE Administration Furosemide 40 mg 08/06/18 09:00 08/10/18 16:41 Lasix IVP 40 mg BID LESLIE Administration Glucagon 0 mg 08/03/18 03:35 Glucagen Diagnostic Kit IM STAT PRN Hypoglycemia Protocol Protocol Piperacillin Sod/Tazobactam 100 mls @ 100 mls/hr 08/03/18 11:00 08/11/18 00:42 Sod 3.375 gm/ Sodium Chloride IVPB 100 mls/hr Q8 LESLIE Administration Protocol Levetiracetam 1,000 mg/ Sodium 110 mls @ 110 mls/hr 08/06/18 15:00 08/11/18 03:23 Chloride IVPB 110 mls/hr Q12@0300,1500 LESLIE Administration Acyclovir 800 mg/ Sodium 250 mls @ 250 mls/hr 08/09/18 12:15 08/11/18 00:43 Chloride IVPB 250 mls/hr Q8 LESLIE Administration Protocol Ibuprofen 600 mg 08/03/18 13:30 08/07/18 04:10 Motrin Tab PO 600 mg Q6 PRN Administration Fever >100.4 F Insulin Detemir 20 units 08/09/18 22:00 08/10/18 21:06 Levemir SC 20 units HS LESLIE Administration Insulin Human Regular 0 units 08/07/18 11:30 08/11/18 06:36 Humulin R SC 3 units ACHS LESLIE Administration Protocol Lactulose 20 gm 08/08/18 17:16 08/09/18 11:03 Enulose PO 20 gm Q12 PRN Administration Constipation Levothyroxine Sodium 50 mcg 08/04/18 06:30 08/11/18 06:36 Synthroid PO 50 mcg DAILY@0630 LESLIE Administration Losartan Potassium 100 mg 08/10/18 09:00 08/10/18 09:24 Cozaar PO 100 mg DAILY LESLIE Administration Morphine Sulfate 4 mg 08/10/18 22:25 08/11/18 04:57 Morphine IVP 4 mg Q4H PRN Administration Agitation Multivitamins/Minerals 1 tab 08/03/18 09:00 08/10/18 09:21 Therapeutic-M Tab PO 1 tab DAILY LESLIE Administration Pantoprazole Sodium 20 mg 08/03/18 09:00 08/10/18 09:21 Protonix Ec Tab PO 20 mg DAILY LESLIE Administration Sitagliptin Phosphate 100 mg 08/03/18 22:00 08/10/18 21:06 Januvia PO 100 mg HS LESLIE Administration - Patient Studies Lab Studies: Lab Studies 08/11/18 08/11/18 08/11/18 Range/Units 05:52 04:40 04:40 WBC 14.5 H (4.8-10.8) K/uL RBC 3.78 L (3.80-5.20) Mil/uL Hgb 9.6 L (12.0-16.0) g/dL Hct 30.1 L (34.0-47.0) % MCV 79.7 L (81.0-99.0) fl MCH 25.4 L (27.0-31.0) pg MCHC 31.8 L (33.0-37.0) g/dL RDW 15.8 H (11.5-14.5) % Plt Count 623 H (130-400) K/uL pCO2 (35-45) mm/Hg pO2 (80-100) mm/Hg HCO3 (21-28) mmol/L ABG pH (7.35-7.45) ABG Total CO2 (22-28) mmol/L ABG O2 Saturation (95-98) % ABG O2 Content (15-23) ML/dL ABG Base Excess (-2.0-3.0) mmol/L ABG Hemoglobin (11.7-17.4) g/dL ABG Carboxyhemoglobin (0.5-1.5) % POC ABG HHb (Measured) (0.0-5.0) % ABG Methemoglobin (0.0-3.0) % ABG O2 Capacity (16-24) mL/dL Bridger Test A-a O2 Difference mm/Hg Hgb O2 Saturation (95.0-98.0) % Vent Mode Mechanical Rate FiO2 % Tidal Volume PEEP Sodium 143 (132-148) mmol/l Potassium 3.7 (3.6-5.0) MMOL/L Chloride 104 (98-107) mmol/L Carbon Dioxide 31 H (22-30) mmol/L Anion Gap 12 (10-20) BUN 32 H (7-17) mg/dl Creatinine 1.3 H (0.7-1.2) mg/dl Est GFR ( Amer) 50 Est GFR (Non-Af Amer) 42 POC Glucose (mg/dL) 247 H (65-110) mg/dL Random Glucose 255 H (65-105) mg/dL Calcium 9.7 (8.4-10.2) mg/dL Hepatitis A IgM Ab (NEGATIVE) Hep Bs Antigen (NEGATIVE) Hep B Core IgM Ab (NEGATIVE) Hepatitis C Antibody (NEGATIVE) 08/11/18 08/10/18 08/10/18 Range/Units 04:15 21:19 16:31 WBC (4.8-10.8) K/uL RBC (3.80-5.20) Mil/uL Hgb (12.0-16.0) g/dL Hct (34.0-47.0) % MCV (81.0-99.0) fl MCH (27.0-31.0) pg MCHC (33.0-37.0) g/dL RDW (11.5-14.5) % Plt Count (130-400) K/uL pCO2 48 H (35-45) mm/Hg pO2 94 (80-100) mm/Hg HCO3 31.5 H (21-28) mmol/L ABG pH 7.45 (7.35-7.45) ABG Total CO2 34.9 H (22-28) mmol/L ABG O2 Saturation 97.9 (95-98) % ABG O2 Content 12.6 L (15-23) ML/dL ABG Base Excess 8.4 H (-2.0-3.0) mmol/L ABG Hemoglobin 9.2 L (11.7-17.4) g/dL ABG Carboxyhemoglobin 0.8 (0.5-1.5) % POC ABG HHb (Measured) 2.1 (0.0-5.0) % ABG Methemoglobin 1.1 (0.0-3.0) % ABG O2 Capacity 12.9 L (16-24) mL/dL Bridger Test Yes A-a O2 Difference 203.0 mm/Hg Hgb O2 Saturation 96.0 (95.0-98.0) % Vent Mode A/c Mechanical Rate 14 FiO2 50.0 % Tidal Volume 450 PEEP 5 Sodium (132-148) mmol/l Potassium (3.6-5.0) MMOL/L Chloride (98-107) mmol/L Carbon Dioxide (22-30) mmol/L Anion Gap (10-20) BUN (7-17) mg/dl Creatinine (0.7-1.2) mg/dl Est GFR ( Amer) Est GFR (Non-Af Amer) POC Glucose (mg/dL) 220 H 254 H (65-110) mg/dL Random Glucose (65-105) mg/dL Calcium (8.4-10.2) mg/dL Hepatitis A IgM Ab (NEGATIVE) Hep Bs Antigen (NEGATIVE) Hep B Core IgM Ab (NEGATIVE) Hepatitis C Antibody (NEGATIVE) 11/05/18 11/05/18 11/04/18 Range/Units 11:31 06:47 14:48 WBC (4.8-10.8) K/uL RBC (3.80-5.20) Mil/uL Hgb (12.0-16.0) g/dL Hct (34.0-47.0) % MCV (81.0-99.0) fl MCH (27.0-31.0) pg MCHC (33.0-37.0) g/dL RDW (11.5-14.5) % Plt Count (130-400) K/uL pCO2 (35-45) mm/Hg pO2 (80-100) mm/Hg HCO3 (21-28) mmol/L ABG pH (7.35-7.45) ABG Total CO2 (22-28) mmol/L ABG O2 Saturation (95-98) % ABG O2 Content (15-23) ML/dL ABG Base Excess (-2.0-3.0) mmol/L ABG Hemoglobin (11.7-17.4) g/dL ABG Carboxyhemoglobin (0.5-1.5) % POC ABG HHb (Measured) (0.0-5.0) % ABG Methemoglobin (0.0-3.0) % ABG O2 Capacity (16-24) mL/dL Bridger Test A-a O2 Difference mm/Hg Hgb O2 Saturation (95.0-98.0) % Vent Mode Mechanical Rate FiO2 % Tidal Volume PEEP Sodium (132-148) mmol/l Potassium (3.6-5.0) MMOL/L Chloride (98-107) mmol/L Carbon Dioxide (22-30) mmol/L Anion Gap (10-20) BUN (7-17) mg/dl Creatinine (0.7-1.2) mg/dl Est GFR ( Amer) Est GFR (Non-Af Amer) POC Glucose (mg/dL) 234 H 217 H (65-110) mg/dL Random Glucose (65-105) mg/dL Calcium (8.4-10.2) mg/dL Hepatitis A IgM Ab Negative (NEGATIVE) Hep Bs Antigen Negative (NEGATIVE) Hep B Core IgM Ab Negative (NEGATIVE) Hepatitis C Antibody Negative (NEGATIVE) Laboratory Results - last 24 hr 08/09/18 08/10/18 08/10/18 14:48 06:47 11:31 WBC RBC Hgb Hct MCV MCH MCHC RDW Plt Count pCO2 pO2 HCO3 ABG pH ABG Total CO2 ABG O2 Saturation ABG O2 Content ABG Base Excess ABG Hemoglobin ABG Carboxyhemoglobin POC ABG HHb (Measured) ABG Methemoglobin ABG O2 Capacity Bridger Test A-a O2 Difference Hgb O2 Saturation Vent Mode Mechanical Rate FiO2 Tidal Volume PEEP Sodium Potassium Chloride Carbon Dioxide Anion Gap BUN Creatinine Est GFR ( Amer) Est GFR (Non-Af Amer) POC Glucose (mg/dL) 217 H 234 H Random Glucose Calcium Hepatitis A IgM Ab Negative Hep Bs Antigen Negative Hep B Core IgM Ab Negative Hepatitis C Antibody Negative 08/10/18 08/10/18 08/11/18 16:31 21:19 04:15 WBC RBC Hgb Hct MCV MCH MCHC RDW Plt Count pCO2 48 H pO2 94 HCO3 31.5 H ABG pH 7.45 ABG Total CO2 34.9 H ABG O2 Saturation 97.9 ABG O2 Content 12.6 L ABG Base Excess 8.4 H ABG Hemoglobin 9.2 L ABG Carboxyhemoglobin 0.8 POC ABG HHb (Measured) 2.1 ABG Methemoglobin 1.1 ABG O2 Capacity 12.9 L Bridger Test Yes A-a O2 Difference 203.0 Hgb O2 Saturation 96.0 Vent Mode A/c Mechanical Rate 14 FiO2 50.0 Tidal Volume 450 PEEP 5 Sodium Potassium Chloride Carbon Dioxide Anion Gap BUN Creatinine Est GFR ( Amer) Est GFR (Non-Af Amer) POC Glucose (mg/dL) 254 H 220 H Random Glucose Calcium Hepatitis A IgM Ab Hep Bs Antigen Hep B Core IgM Ab Hepatitis C Antibody 08/11/18 08/11/18 08/11/18 04:40 04:40 05:52 WBC 14.5 H RBC 3.78 L Hgb 9.6 L Hct 30.1 L MCV 79.7 L MCH 25.4 L MCHC 31.8 L RDW 15.8 H Plt Count 623 H pCO2 pO2 HCO3 ABG pH ABG Total CO2 ABG O2 Saturation ABG O2 Content ABG Base Excess ABG Hemoglobin ABG Carboxyhemoglobin POC ABG HHb (Measured) ABG Methemoglobin ABG O2 Capacity Bridger Test A-a O2 Difference Hgb O2 Saturation Vent Mode Mechanical Rate FiO2 Tidal Volume PEEP Sodium 143 Potassium 3.7 Chloride 104 Carbon Dioxide 31 H Anion Gap 12 BUN 32 H Creatinine 1.3 H Est GFR ( Amer) 50 Est GFR (Non-Af Amer) 42 POC Glucose (mg/dL) 247 H Random Glucose 255 H Calcium 9.7 Hepatitis A IgM Ab Hep Bs Antigen Hep B Core IgM Ab Hepatitis C Antibody Fingerstick Blood Sugar Results: 247 Review of Systems - Constitutional Additional comments: Pt intubated on CPAP with pressure support Critical Care Progress Note - Nutrition Nutrition: Nutrition Category Date Time Status NPO Diet [DIET] Diets 08/04/18 Breakfast Active Assessment/Plan - Assessment and Plan (Free Text) Assessment: 62 yo F with pmhx of HTN, DM2, Hypothyroid, GERD, schizophrenia s/p fall in halfway, admitted for sepsis secondary to pneumonia, experienced an episode of bradycardia and code blue was called for PEA with ROSC after epinephrine x3. Plan: 1) AMS - possibly 2/2 Toxic metabolic encephalopathy - AMS, Schizophrenia - Intubated on CPAP with pressure support - Will try to extubate - Considering consulting Psych/restarting Clozapine - Empiric IV Acyclovir 2) Pneumonia -Improving; afebrile -leukocytes: 14.5 -Airbone isolation 2/2 hx of positive PPD, living in halfway -AFB negative x1 pending 2 -Quant gold: indeterminate -Legionella: negative -CXR: 08/11: pending -08/10; Atelectasis at [facility] base. -Continue: IVABX: zosyn -s/p Vancomycin -ID: Dr. Castorena: continue IV ABX 3) s/p Cardiac arrest -ROSC -EKG NSR -troponin: neg x4 4) Intubated - now on CPAP with Pressure support - Will attempt to extubate 5) Sepsis - Lactic acid: 1.9 from 3.2 on admission - leukocytes: 14.5 - bcx: no growth;final; Urine cx: negative, final - afebrile 6) DM 2 - SS Insulin medium coverage - Januvia - Metformin held 7) Schizophrenia -Consider resuming home meds 8) Elevated Transaminitis -Improving - AST: 103 > 113 > 78 > 37 - ALT: 99 > 146 > 118 > 64 - Alk Phos: 148 > 191 > 184 > 162 - GGT: 72 9) Constipation - Lactulose 10) Hypothyroid - Levothyroxine 50 mcg 11) Seizure activity -Resolved -Dr. Keller: focal seizure on EEG; keppra 1000 mg BID; D/C Clozapine -CT head: No intracranial hemorrhage or mass effect. Cerebral atrophy and si milar chronic microvascular ischemic changes. Paranasal sinus inflammatory changes-interval air-fluid level/sinusitis sphenoid sinus now noted. -Brain MRI: unable to be performed 2/[address]us[address] Case dw Dr. Sonal Naranjo MD PGY2 <Rohith Pruitt M - Last Filed: 08/11/18 16:32> CCU Objective - Vital Signs / Intake & Output Vital Signs (Last 4 hours): Vital Signs Temp Pulse Resp BP Pulse Ox 08/11/18 16:00 101.4 F H 96 H 23 176/80 H 97 Intake and Output (Last 8hrs): Intake & Output 08/11/18 08/11/18 08/11/18 06:59 14:59 22:59 Intake Total 1270 Output Total 1600 Balance -330 Intake: Intake, Piggyback 450 Tube Feeding 520 Free Water Flush 300 Output: Urine 1600 Urethral (Ray) 1600 - Medications Active Medications: Active Medications Generic Name Dose Route Start Last Admin Trade Name Freq PRN Reason Stop Dose Admin Acetaminophen 650 mg 08/03/18 03:33 08/05/18 05:35 Tylenol 325mg Tab PO 650 mg Q6 PRN Administration Fever >100.4 F Amlodipine Besylate 10 mg 08/03/18 09:00 08/11/18 09:00 Norvasc PO 10 mg DAILY LESLIE Administration Aspirin 325 mg 08/03/18 09:00 08/11/18 08:58 Ecotrin PO Not Given DAILY LESLIE Atorvastatin Calcium 10 mg 08/03/18 22:00 08/10/18 21:06 Lipitor PO 10 mg HS LESLIE Administration Carvedilol 25 mg 08/03/18 09:00 08/11/18 08:57 Coreg PO 25 mg BID LESLIE Administration Dextrose 0 ml 08/03/18 03:35 Dextrose 50% Inj IV STAT PRN Hypoglycemia Protocol Protocol Dextrose 0 gm 08/03/18 03:35 Glutose 15 PO ONCE PRN Hypoglycemia Protocol Protocol Divalproex Sodium 1,250 mg 08/03/18 22:00 08/03/18 21:56 Depakote Er(Once Daily) PO 1,250 mg HS LESLIE Administration Enoxaparin Sodium 40 mg 08/09/18 09:00 08/11/18 08:59 Lovenox SC 40 mg DAILY LESLIE Administration Protocol Escitalopram Oxalate 10 mg 08/03/18 22:00 08/03/18 21:31 Lexapro PO 10 mg HS LESLIE Administration Fluticasone Propionate 2 spr 08/03/18 09:00 08/11/18 08:58 Flonase ANIKA 2 spr DAILY LESLIE Administration Furosemide 40 mg 08/06/18 09:00 08/11/18 08:59 Lasix IVP 40 mg BID LESLIE Administration Glucagon 0 mg 08/03/18 03:35 Glucagen Diagnostic Kit IM STAT PRN Hypoglycemia Protocol Protocol Piperacillin Sod/Tazobactam 100 mls @ 100 mls/hr 08/03/18 11:00 08/11/18 09:04 Sod 3.375 gm/ Sodium Chloride IVPB 100 mls/hr Q8 LESLIE Administration Protocol Levetiracetam 1,000 mg/ Sodium 110 mls @ 110 mls/hr 08/06/18 15:00 08/11/18 03:23 Chloride IVPB 110 mls/hr Q12@0300,1500 LESLIE Administration Acyclovir 800 mg/ Sodium 250 mls @ 250 mls/hr 08/09/18 12:15 08/11/18 09:03 Chloride IVPB 250 mls/hr Q8 LESLIE Administration Protocol Ibuprofen 600 mg 08/03/18 13:30 08/07/18 04:10 Motrin Tab PO 600 mg Q6 PRN Administration Fever >100.4 F Insulin Detemir 20 units 08/09/18 22:00 08/10/18 21:06 Levemir SC 20 units HS LESLIE Administration Insulin Human Regular 0 units 08/07/18 11:30 08/11/18 14:17 Humulin R SC 3 units ACHS LESLIE Administration Protocol Lactulose 20 gm 08/08/18 17:16 08/09/18 11:03 Enulose PO 20 gm Q12 PRN Administration Constipation Levothyroxine Sodium 50 mcg 08/04/18 06:30 08/11/18 06:36 Synthroid PO 50 mcg DAILY@0630 LESLIE Administration Losartan Potassium 100 mg 08/10/18 09:00 08/11/18 08:56 Cozaar PO 100 mg DAILY LESLIE Administration Morphine Sulfate 4 mg 08/10/18 22:25 08/11/18 09:08 Morphine IVP 4 mg Q4H PRN Administration Agitation Multivitamins/Minerals 1 tab 08/03/18 09:00 08/11/18 09:03 Therapeutic-M Tab PO Not Given DAILY LESLIE Pantoprazole Sodium 20 mg 08/03/18 09:00 08/11/18 09:03 Protonix Ec Tab PO Not Given DAILY LESLIE Pantoprazole Sodium 40 mg 08/11/18 09:45 08/11/18 14:17 Protonix Inj IVP 40 mg DAILY LESLIE Administration Sitagliptin Phosphate 100 mg 08/03/18 22:00 08/10/18 21:06 Januvia PO 100 mg HS LESLIE Administration - Patient Studies Lab Studies: Microbiology Studies 08/08/18 08:00 Mycobacterial Culture - Preliminary Other: Please Indicate Lab Studies 08/11/18 08/11/18 08/11/18 Range/Units 10:50 05:52 04:40 WBC (4.8-10.8) K/uL RBC (3.80-5.20) Mil/uL Hgb (12.0-16.0) g/dL Hct (34.0-47.0) % MCV (81.0-99.0) fl MCH (27.0-31.0) pg MCHC (33.0-37.0) g/dL RDW (11.5-14.5) % Plt Count (130-400) K/uL pCO2 49 H (35-45) mm/Hg pO2 83 (80-100) mm/Hg HCO3 31.9 H (21-28) mmol/L ABG pH 7.45 (7.35-7.45) ABG Total CO2 35.6 H (22-28) mmol/L ABG O2 Saturation 96.9 (95-98) % ABG O2 Content 12.3 L (15-23) ML/dL ABG Base Excess 9.0 H (-2.0-3.0) mmol/L ABG Hemoglobin 9.1 L (11.7-17.4) g/dL ABG Carboxyhemoglobin 0.7 (0.5-1.5) % POC ABG HHb (Measured) 3.0 (0.0-5.0) % ABG Methemoglobin 1.1 (0.0-3.0) % ABG O2 Capacity 12.7 L (16-24) mL/dL Bridger Test Yes A-a O2 Difference 141.0 mm/Hg Hgb O2 Saturation 95.1 (95.0-98.0) % Vent Mode Cpap Mechanical Rate FiO2 40.0 % Tidal Volume PEEP 5 CPAP 10 Sodium 143 (132-148) mmol/l Potassium 3.7 (3.6-5.0) MMOL/L Chloride 104 (98-107) mmol/L Carbon Dioxide 31 H (22-30) mmol/L Anion Gap 12 (10-20) BUN 32 H (7-17) mg/dl Creatinine 1.3 H (0.7-1.2) mg/dl Est GFR ( Amer) 50 Est GFR (Non-Af Amer) 42 POC Glucose (mg/dL) 247 H (65-110) mg/dL Random Glucose 255 H (65-105) mg/dL Calcium 9.7 (8.4-10.2) mg/dL 08/11/18 08/11/18 08/10/18 Range/Units 04:40 04:15 21:19 WBC 14.5 H (4.8-10.8) K/uL RBC 3.78 L (3.80-5.20) Mil/uL Hgb 9.6 L (12.0-16.0) g/dL Hct 30.1 L (34.0-47.0) % MCV 79.7 L (81.0-99.0) fl MCH 25.4 L (27.0-31.0) pg MCHC 31.8 L (33.0-37.0) g/dL RDW 15.8 H (11.5-14.5) % Plt Count 623 H (130-400) K/uL pCO2 48 H (35-45) mm/Hg pO2 94 (80-100) mm/Hg HCO3 31.5 H (21-28) mmol/L ABG pH 7.45 (7.35-7.45) ABG Total CO2 34.9 H (22-28) mmol/L ABG O2 Saturation 97.9 (95-98) % ABG O2 Content 12.6 L (15-23) ML/dL ABG Base Excess 8.4 H (-2.0-3.0) mmol/L ABG Hemoglobin 9.2 L (11.7-17.4) g/dL ABG Carboxyhemoglobin 0.8 (0.5-1.5) % POC ABG HHb (Measured) 2.1 (0.0-5.0) % ABG Methemoglobin 1.1 (0.0-3.0) % ABG O2 Capacity 12.9 L (16-24) mL/dL Bridger Test Yes A-a O2 Difference 203.0 mm/Hg Hgb O2 Saturation 96.0 (95.0-98.0) % Vent Mode A/c Mechanical Rate 14 FiO2 50.0 % Tidal Volume 450 PEEP 5 CPAP Sodium (132-148) mmol/l Potassium (3.6-5.0) MMOL/L Chloride (98-107) mmol/L Carbon Dioxide (22-30) mmol/L Anion Gap (10-20) BUN (7-17) mg/dl Creatinine (0.7-1.2) mg/dl Est GFR ( Amer) Est GFR (Non-Af Amer) POC Glucose (mg/dL) 220 H (65-110) mg/dL Random Glucose (65-105) mg/dL Calcium (8.4-10.2) mg/dL 08/10/18 08/10/18 08/10/18 Range/Units 16:31 11:31 06:47 WBC (4.8-10.8) K/uL RBC (3.80-5.20) Mil/uL Hgb (12.0-16.0) g/dL Hct (34.0-47.0) % MCV (81.0-99.0) fl MCH (27.0-31.0) pg MCHC (33.0-37.0) g/dL RDW (11.5-14.5) % Plt Count (130-400) K/uL pCO2 (35-45) mm/Hg pO2 (80-100) mm/Hg HCO3 (21-28) mmol/L ABG pH (7.35-7.45) ABG Total CO2 (22-28) mmol/L ABG O2 Saturation (95-98) % ABG O2 Content (15-23) ML/dL ABG Base Excess (-2.0-3.0) mmol/L ABG Hemoglobin (11.7-17.4) g/dL ABG Carboxyhemoglobin (0.5-1.5) % POC ABG HHb (Measured) (0.0-5.0) % ABG Methemoglobin (0.0-3.0) % ABG O2 Capacity (16-24) mL/dL Bridger Test A-a O2 Difference mm/Hg Hgb O2 Saturation (95.0-98.0) % Vent Mode Mechanical Rate FiO2 % Tidal Volume PEEP CPAP Sodium (132-148) mmol/l Potassium (3.6-5.0) MMOL/L Chloride (98-107) mmol/L Carbon Dioxide (22-30) mmol/L Anion Gap (10-20) BUN (7-17) mg/dl Creatinine (0.7-1.2) mg/dl Est GFR ( Amer) Est GFR (Non-Af Amer) POC Glucose (mg/dL) 254 H 234 H 217 H (65-110) mg/dL Random Glucose (65-105) mg/dL Calcium (8.4-10.2) mg/dL Laboratory Results - last 24 hr 08/10/18 08/10/18 08/10/18 06:47 11:31 16:31 WBC RBC Hgb Hct MCV MCH MCHC RDW Plt Count pCO2 pO2 HCO3 ABG pH ABG Total CO2 ABG O2 Saturation ABG O2 Content ABG Base Excess ABG Hemoglobin ABG Carboxyhemoglobin POC ABG HHb (Measured) ABG Methemoglobin ABG O2 Capacity Bridger Test A-a O2 Difference Hgb O2 Saturation Vent Mode Mechanical Rate FiO2 Tidal Volume PEEP CPAP Sodium Potassium Chloride Carbon Dioxide Anion Gap BUN Creatinine Est GFR ( Amer) Est GFR (Non-Af Amer) POC Glucose (mg/dL) 217 H 234 H 254 H Random Glucose Calcium 08/10/18 08/11/18 08/11/18 21:19 04:15 04:40 WBC 14.5 H RBC 3.78 L Hgb 9.6 L Hct 30.1 L MCV 79.7 L MCH 25.4 L MCHC 31.8 L RDW 15.8 H Plt Count 623 H pCO2 48 H pO2 94 HCO3 31.5 H ABG pH 7.45 ABG Total CO2 34.9 H ABG O2 Saturation 97.9 ABG O2 Content 12.6 L ABG Base Excess 8.4 H ABG Hemoglobin 9.2 L ABG Carboxyhemoglobin 0.8 POC ABG HHb (Measured) 2.1 ABG Methemoglobin 1.1 ABG O2 Capacity 12.9 L Bridger Test Yes A-a O2 Difference 203.0 Hgb O2 Saturation 96.0 Vent Mode A/c Mechanical Rate 14 FiO2 50.0 Tidal Volume 450 PEEP 5 CPAP Sodium Potassium Chloride Carbon Dioxide Anion Gap BUN Creatinine Est GFR ( Amer) Est GFR (Non-Af Amer) POC Glucose (mg/dL) 220 H Random Glucose Calcium 08/11/18 08/11/18 08/11/18 04:40 05:52 10:50 WBC RBC Hgb Hct MCV MCH MCHC RDW Plt Count pCO2 49 H pO2 83 HCO3 31.9 H ABG pH 7.45 ABG Total CO2 35.6 H ABG O2 Saturation 96.9 ABG O2 Content 12.3 L ABG Base Excess 9.0 H ABG Hemoglobin 9.1 L ABG Carboxyhemoglobin 0.7 POC ABG HHb (Measured) 3.0 ABG Methemoglobin 1.1 ABG O2 Capacity 12.7 L Bridger Test Yes A-a O2 Difference 141.0 Hgb O2 Saturation 95.1 Vent Mode Cpap Mechanical Rate FiO2 40.0 Tidal Volume PEEP 5 CPAP 10 Sodium 143 Potassium 3.7 Chloride 104 Carbon Dioxide 31 H Anion Gap 12 BUN 32 H Creatinine 1.3 H Est GFR ( Amer) 50 Est GFR (Non-Af Amer) 42 POC Glucose (mg/dL) 247 H Random Glucose 255 H Calcium 9.7 Critical Care Progress Note - Nutrition Nutrition: Nutrition Category Date Time Status NPO Diet [DIET] Diets 08/04/18 Breakfast Active Attending/Attestation - Attestation I have personally seen and examined this patient.: Yes I have fully participated in the care of the patient.: Yes I have reviewed all pertinent clinical information: Yes Notes (Text): 08/11/18 16:27 Today: Saturday, August 11, 2018 The patient was Seen/interviewed and examined by me at the bedside during ICU round, Medical records reviewed and Management issues were discussed and formulated with the house staff. Events reviewed I have reviewed all the relevant clinical, laboratory, hemodynamic, radiographic data and medications Pain issues, skin care, head of the bed elevation, glycemic control were addressed. I concur with resident's assessment and plan of care as transcribed in Dr. Naranjo note.
[2018-08-11] MEDS: Aspirin 325 mg EC Tablets PO SCH (08:58)
[2018-08-11] MEDS: Enoxaparin 40 mg Syringe SC SCH (08:59)
[2018-08-11] MEDS: Multivitamin With Minerals Tab PO SCH (09:03)
[2018-08-11] MEDS: Pantoprazole 20 mg EC Tab PO SCH (09:03)
--- NOTE | 2018-08-11 09:49 | RAD ---
Date of service: 08/11/2018 HISTORY: ETT placement COMPARISON: Portable chest 07/10/2018 FINDINGS: LUNGS: Patient rotated toward the right limiting the interpretation. Endotracheal and nasogastric tubes do not appear significantly changed in position. No definitive airspace disease identified bilaterally. PLEURA: No significant pleural effusion identified, no pneumothorax apparent. CARDIOVASCULAR: No aortic atherosclerotic calcification present. Normal cardiac size. No pulmonary vascular congestion. OSSEOUS STRUCTURES: No significant abnormalities. VISUALIZED UPPER ABDOMEN: Normal. OTHER FINDINGS: None. IMPRESSION: ET tube and NG tube are unchanged in position with no definite interval acute cardiopulmonary disease appreciable.
--- NOTE | 2018-08-11 10:00 | PN ---
DATE: 08/10/2018 LOCATION: In ICU, bed 431. TIME SPENT: 35 minutes. The patient is seen, evaluated at the bedside. Past medical, surgical, social and family history reviewed. Events since admission noted. Case was discussed in multidisciplinary ICU rounds this morning. A 62-year-old female from a assisted with medical history significant for hypertension, diabetes, hypothyroidism, gastroesophageal reflux disease, schizophrenia, admitted on 08/02/2018 for sepsis due to pneumonia, status post code blue, resuscitated with epinephrine, fluid support and bicarbonate, remains intubated on mechanical ventilation, rate 14, tidal volume 450, FIO2 50%, observed rate of 14, observed tidal volume 410, minute ventilation 5.7 liters, oxygen saturation 99%, peak airway pressure 24, end-tidal CO2 22, started on acyclovir empirically for suspected encephalitis related seizure. EEG reported abnormal activity from the bifrontal area. CT head negative. PHYSICAL EXAMINATION: VITAL SIGNS: Temperature 98.9, heart rate 63, blood pressure 120/58, mean arterial pressure 78, respiratory rate 20. Intake 4100, output 3000, positive balance 1100. Weight 196 pounds. HEAD, EYES, EARS, NOSE AND THROAT: Pupils are 2-3 mm midline, reactive. Endotracheal tube in place. Clear secretions. LUNGS: Bilateral breath sounds, scattered rhonchi. HEART: Rhythm regular. S1, S2 normal intensity. No S3, S4 or gallop. ABDOMEN: Bowel sounds present, soft. Liver and spleen not palpable. Bladder not distended. EXTREMITIES: Trace edema. NEUROLOGIC: Opens eyes on calling the patient's name, does not follow commands. Moves both upper and lower extremities, nonpurposeful. Unable to lift head of bed on request, hand on request. CURRENT MEDICATIONS: Acyclovir 800 mg every 8 hours, Norvasc 10 mg daily, Ecotrin 324 mg daily, Lipitor 10 mg daily, Coreg 25 mg twice daily, Depakote 1250 on hold, Lovenox 40 subcu daily, Lexapro 10 mg p.o. at bedtime, Flonase 2 sprays to both nostrils once daily, Furosemide 40 mg IV twice daily, lactulose 20 gm every 12 hours p.r.n., Keppra 1000 mg twice daily, Synthroid 50 mcg daily, Cozaar 100 mg daily, morphine 4 mg IV every 6 hours p.r.n. for agitation, multivitamin tablet daily, Protonix 20 mg daily, Zosyn 3.375 gm IV every 6 hours, Januvia 100 mg p.o. at bedtime. LABORATORY DATA: Chest x-ray, endotracheal tube in place. NG tube in place. Mild bilateral interstitial changes. WBC 17, hemoglobin 9.8, hematocrit 30.2, platelet count 641, neutrophils 73.5, lymphocytes 18.8, monocytes 5.5. PT 12.2, INR 1.1. ABG, pH of 7.45, pCO2 of 47, pO2 81, oxygen saturation 97.6 on AC 14 of 450, 50%, PEEP of 5. SMA-7 sodium 141, potassium 3.7, chloride 100, CO2 30, blood urea nitrogen 22, creatinine 0.9, random glucose 232, calcium 9.6, AST 37, ALT 64, alkaline phosphatase 162. Urinalysis, nitrite negative, bilirubin negative, rbc 5, leukocyte esterase negative. Toxicology, vancomycin trough level 11.6. Valproic acid 50.1. Immunology, negative. Serology, hepatitis B, A and C antibody negative. Influenza A and negative. Legionella pneumonia negative. Microbiology, sputum AB negative, sputum culture no growth, nasal MRSA negative. Sputum culture normal dolores. Blood culture no growth. Urine culture no growth reported. ASSESSMENT AND PLAN: 1. Neurologic: Status post brief cardiopulmonary arrest suspected anoxic brain injury, more wakeful than before, but however; does not follow commands, moving both upper and lower extremities purposeless, suspected central nervous system inflammation, empirically on acyclovir. EEG showed abnormal activity from bifrontal area. CT head is negative. MRI cannot be done due to the patient's habitus. 2. Pulmonary: Intubated on mechanical ventilation day 6. The patient's mental status is not stable enough to protect the airway; however, we will try the spontaneous breathing trial and see the response with the respiratory status. 3. Cardiovascular: Hypertension controlled on Cozaar. Recent echo reportedly with preserved left ventricular function. 4. Infectious Disease. Suspected pneumonia on antibiotics. 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 5. Endocrinology: Hypothyroidism on levothyroxine. Diabetes on Levemir. Accu-Chek with regular insulin coverage. Maintain blood sugar below 180 mg. 6. Renal: No electrolyte abnormalities noted, mildly elevated BUN. 7. Hematology: Leukocytosis reactive and/or due to the pneumonia, trending down. Anemia microcytic no obvious gastrointestinal bleeding, suspect gastritis. Continue proton pump inhibitor. Maintain head of bed [address]. DVT prophylaxis, GI prophylaxis. Attempt weaning as tolerated. Kartik Pettit MD
--- NOTE | 2018-08-11 10:48 | CP.PCM.PN ---
Subjective - Date & Time of Evaluation Date of Evaluation: 08/11/18 Time of Evaluation: 09:00 - Subjective Subjective: afeb on IV rx Objective - Vital Signs/Intake and Output Vital Signs (last 24 hours): Temp Pulse Resp BP Pulse Ox 98.9 F 84 29 H 166/81 H 95 08/11/18 08:00 08/11/18 09:00 08/11/18 08:00 08/11/18 09:00 08/11/18 08:00 Intake and Output: 08/11/18 08/11/18 06:59 18:59 Intake Total 1660 Output Total 1600 Balance 60 - Medications Medications: Current Medications Acetaminophen (Tylenol 325mg Tab) 650 mg PO Q6 PRN PRN Reason: Fever >100.4 F Last Admin: 08/05/18 05:35 Dose: 650 mg Amlodipine Besylate (Norvasc) 10 mg PO DAILY [facility] Last Admin: 08/11/18 09:00 Dose: 10 mg Aspirin (Ecotrin) 325 mg PO DAILY [facility] Last Admin: 08/11/18 08:58 Dose: Not Given Atorvastatin Calcium (Lipitor) 10 mg PO HS [facility] Last Admin: 08/10/18 21:06 Dose: 10 mg Carvedilol (Coreg) 25 mg PO BID [facility] Last Admin: 08/11/18 08:57 Dose: 25 mg Dextrose (Dextrose 50% Inj) 0 ml IV STAT PRN; Protocol PRN Reason: Hypoglycemia Protocol Dextrose (Glutose 15) 0 gm PO ONCE PRN; Protocol PRN Reason: Hypoglycemia Protocol Divalproex Sodium (Depakote Er(Once Daily)) 1,250 mg PO HS [facility] Last Admin: 08/03/18 21:56 Dose: 1,250 mg Enoxaparin Sodium (Lovenox) 40 mg SC DAILY [facility]; Protocol Last Admin: 08/11/18 08:59 Dose: 40 mg Escitalopram Oxalate (Lexapro) 10 mg PO HS [facility] Last Admin: 08/03/18 21:31 Dose: 10 mg Fluticasone Propionate (Flonase) 2 spr ANIKA DAILY [facility] Last Admin: 08/11/18 08:58 Dose: 2 spr Furosemide (Lasix) 40 mg IVP BID [facility] Last Admin: 08/11/18 08:59 Dose: 40 mg Glucagon (Glucagen Diagnostic Kit) 0 mg IM STAT PRN; Protocol PRN Reason: Hypoglycemia Protocol Piperacillin Sod/Tazobactam (Sod 3.375 gm/ Sodium Chloride) 100 mls @ 100 mls/hr IVPB Q8 [facility]; Protocol Last Admin: 08/11/18 09:04 Dose: 100 mls/hr Levetiracetam 1,000 mg/ Sodium (Chloride) 110 mls @ 110 mls/hr IVPB Q12@0300,1500 [facility] Last Admin: 08/11/18 03:23 Dose: 110 mls/hr Acyclovir 800 mg/ Sodium (Chloride) 250 mls @ 250 mls/hr IVPB Q8 [facility]; Protocol Last Admin: 08/11/18 09:03 Dose: 250 mls/hr Ibuprofen (Motrin Tab) 600 mg PO Q6 PRN PRN Reason: Fever >100.4 F Last Admin: 08/07/18 04:10 Dose: 600 mg Insulin Detemir (Levemir) 20 units SC [facility] Last Admin: 08/10/18 21:06 Dose: 20 units Insulin Human Regular (Humulin R) 0 units SC [facility]; Protocol Last Admin: 08/11/18 06:36 Dose: 3 units Lactulose (Enulose) 20 gm PO Q12 PRN PRN Reason: Constipation Last Admin: 08/09/18 11:03 Dose: 20 gm Levothyroxine Sodium (Synthroid) 50 mcg PO DAILY@0630 [facility] Last Admin: 08/11/18 06:36 Dose: 50 mcg Losartan Potassium (Cozaar) 100 mg PO DAILY [facility] Last Admin: 08/11/18 08:56 Dose: 100 mg Morphine Sulfate (Morphine) 4 mg IVP Q4H PRN PRN Reason: Agitation Last Admin: 08/11/18 09:08 Dose: 4 mg Multivitamins/Minerals (Therapeutic-M Tab) 1 tab PO DAILY [facility] Last Admin: 08/11/18 09:03 Dose: Not Given Pantoprazole Sodium (Protonix Ec Tab) 20 mg PO DAILY [facility] Last Admin: 08/11/18 09:03 Dose: Not Given Pantoprazole Sodium (Protonix Inj) 40 mg IVP DAILY [facility] Sitagliptin Phosphate (Januvia) 100 mg PO [facility] Last Admin: 08/10/18 21:06 Dose: 100 mg - Labs Labs: 08/11/18 04:40 08/11/18 04:40 PT 12.2 Seconds (9.8-13.1) 08/04/18 00:30 INR 1.1 08/04/18 00:30 APTT 31.5 Seconds (25.6-37.1) 08/02/18 22:20 - Constitutional Appears: Non-toxic - Head Exam Head Exam: NORMOCEPHALIC - Eye Exam Eye Exam: absent: Scleral icterus - ENT Exam ENT Exam: Mucous Membranes Dry - Neck Exam Neck Exam: absent: Lymphadenopathy - Respiratory Exam Respiratory Exam: Decreased Breath Sounds - Cardiovascular Exam Cardiovascular Exam: REGULAR RHYTHM - GI/Abdominal Exam GI & Abdominal Exam: Distended Assessment and Plan (1) Pneumonia Status: Acute (2) Severe sepsis Status: Acute - Assessment and Plan (Free Text) Assessment: cont rx
[2018-08-11 11:07] LABS: ABG ALLEN TEST YES; ARTERIAL BLOOD GAS HCO3 31.9 mmol/L (21-28); ARTERIAL BLOOD GAS HEMOGLOBIN 9.1 g/dL (11.7-17.4); ARTERIAL BLOOD GAS O2 CAPACITY 12.7 mL/dL (16-24); ARTERIAL BLOOD GAS O2 CONTENT 12.3 ML/dL (15-23); ARTERIAL BLOOD GAS O2 SAT 96.9 % (95-98); ARTERIAL BLOOD GAS PCO2 49 mm/Hg (35-45); ARTERIAL BLOOD GAS PH 7.45 (7.35-7.45); ARTERIAL BLOOD GAS PO2 83 mm/Hg (80-100); ARTERIAL BLOOD GAS TCO2 35.6 mmol/L (22-28)
--- NOTE | 2018-08-11 15:51 | CP.PCM.PN ---
Subjective - Date & Time of Evaluation Date of Evaluation: 08/11/18 Time of Evaluation: 15:50 - Subjective Subjective: intubated vitals stable nad Objective - Vital Signs/Intake and Output Vital Signs (last 24 hours): Temp Pulse Resp BP Pulse Ox 98.9 F 84 29 H 166/81 H 95 08/11/18 08:00 08/11/18 09:00 08/11/18 08:00 08/11/18 09:00 08/11/18 08:00 Vitals Reviewed GEN: intubated, awake HEENT: NCAT, PERRL, EOMI HEART: RRR, +S1S2, NO MRG LUNG: CTAB, NO WRR ABD: soft, NT, ND, No HSM, No masses EXT: normal pedal pulses NEURO: awake, alert SKIN: warm, dry PSYCH: unable to assess Intake and Output: 08/11/18 08/11/18 06:59 18:59 Intake Total 1660 Output Total 1600 Balance 60 - Medications Medications: Current Medications Acetaminophen (Tylenol 325mg Tab) 650 mg PO Q6 PRN PRN Reason: Fever >100.4 F Last Admin: 08/05/18 05:35 Dose: 650 mg Amlodipine Besylate (Norvasc) 10 mg PO DAILY [facility] Last Admin: 08/11/18 09:00 Dose: 10 mg Aspirin (Ecotrin) 325 mg PO DAILY [facility] Last Admin: 08/11/18 08:58 Dose: Not Given Atorvastatin Calcium (Lipitor) 10 mg PO HS [facility] Last Admin: 08/10/18 21:06 Dose: 10 mg Carvedilol (Coreg) 25 mg PO BID [facility] Last Admin: 08/11/18 08:57 Dose: 25 mg Dextrose (Dextrose 50% Inj) 0 ml IV STAT PRN; Protocol PRN Reason: Hypoglycemia Protocol Dextrose (Glutose 15) 0 gm PO ONCE PRN; Protocol PRN Reason: Hypoglycemia Protocol Divalproex Sodium (Depakote Er(Once Daily)) 1,250 mg PO [facility] Last Admin: 08/03/18 21:56 Dose: 1,250 mg Enoxaparin Sodium (Lovenox) 40 mg SC DAILY [facility]; Protocol Last Admin: 08/11/18 08:59 Dose: 40 mg Escitalopram Oxalate (Lexapro) 10 mg PO [facility] Last Admin: 10/29/18 21:31 Dose: 10 mg Fluticasone Propionate (Flonase) 2 spr ANIKA DAILY [facility] Last Admin: 08/11/18 08:58 Dose: 2 spr Furosemide (Lasix) 40 mg IVP BID [facility] Last Admin: 08/11/18 08:59 Dose: 40 mg Glucagon (Glucagen Diagnostic Kit) 0 mg IM STAT PRN; Protocol PRN Reason: Hypoglycemia Protocol Piperacillin Sod/Tazobactam (Sod 3.375 gm/ Sodium Chloride) 100 mls @ 100 mls/hr IVPB Q8 [facility]; Protocol Last Admin: 08/11/18 09:04 Dose: 100 mls/hr Levetiracetam 1,000 mg/ Sodium (Chloride) 110 mls @ 110 mls/hr IVPB Q12@0300,1500 [facility] Last Admin: 08/11/18 03:23 Dose: 110 mls/hr Acyclovir 800 mg/ Sodium (Chloride) 250 mls @ 250 mls/hr IVPB Q8 [facility]; Protocol Last Admin: 08/11/18 09:03 Dose: 250 mls/hr Ibuprofen (Motrin Tab) 600 mg PO Q6 PRN PRN Reason: Fever >100.4 F Last Admin: 08/07/18 04:10 Dose: 600 mg Insulin Detemir (Levemir) 20 units SC HS [facility] Last Admin: 08/10/18 21:06 Dose: 20 units Insulin Human Regular (Humulin R) 0 units SC [facility]; Protocol Last Admin: 08/11/18 14:17 Dose: 3 units Lactulose (Enulose) 20 gm PO Q12 PRN PRN Reason: Constipation Last Admin: 08/09/18 11:03 Dose: 20 gm Levothyroxine Sodium (Synthroid) 50 mcg PO DAILY@0630 [facility] Last Admin: 08/11/18 06:36 Dose: 50 mcg Losartan Potassium (Cozaar) 100 mg PO DAILY [facility] Last Admin: 08/11/18 08:56 Dose: 100 mg Morphine Sulfate (Morphine) 4 mg IVP Q4H PRN PRN Reason: Agitation Last Admin: 08/11/18 09:08 Dose: 4 mg Multivitamins/Minerals (Therapeutic-M Tab) 1 tab PO DAILY [facility] Last Admin: 08/11/18 09:03 Dose: Not Given Pantoprazole Sodium (Protonix Ec Tab) 20 mg PO DAILY [facility] Last Admin: 08/11/18 09:03 Dose: Not Given Pantoprazole Sodium (Protonix Inj) 40 mg IVP DAILY [facility] Last Admin: 08/11/18 14:17 Dose: 40 mg Sitagliptin Phosphate (Januvia) 100 mg PO HS [facility] Last Admin: 08/10/18 21:06 Dose: 100 mg - Labs Labs: 08/11/18 04:40 08/11/18 04:40 PT 12.2 Seconds (9.8-13.1) 08/04/18 00:30 INR 1.1 08/04/18 00:30 APTT 31.5 Seconds (25.6-37.1) 08/02/18 22:20 Assessment and Plan - Assessment and Plan (Free Text) Plan: 62 yo female from a care home, with hx of DM II, schizophrenia and HTN; initially admitted for sepsis and pneumonia. Initial labs were significant for leukocytosis with bandemia; CXR showed atelectasis vs infiltrate and pt was started on vancomycin, zosyn and zithromax IV. During the admission, pt was found to be bradycardic and became unresponsive. Code Blue was called for suspected Pulseless Electrical Activity; compressions done ,was achieved after 3 rounds of epinephrine. She was then transferred to ICU. When weaned off sedation, mental status changes appreciated per family when compared to her baseline. Neurology was consulted and EEG was ordered, which showed left frontal focal seizures. MRI cannot be done due to body habitus. s/p Cardio/Respiratory Arrest -s/p Code Blue ( 3 doses of epinephrine) -Intubated , off sedation -EKG wnl and troponin neg x2 Left frontal focal seizures -As seen on EEG; as per neuro due to pts infection and antipsychotic lowered seizure threshold; appear to have resolved now - Keppra 1000 mg Q12 - Clozapine discontinued - Neuro on board AMS prob Encephalopathy due to Sepsis Dr Keller rec MRI of Brain to r/o Encephalitis - unable to do due to body habitus ( unable to fit into MRI) empirically started on IV Acyclovir as discussed with Dr Castorena, cont Pneumonia, likely bacterial - CXR significant for for Interval patchy atelectasis or infiltrate right base and left perihilar/medial basilar distributions, as well as pleural effusions - ID on board; Pt received azithromycin, vancomycin and zosyn , Dr Castorena d/c IV Vanco today 08/09, completed 1 wk of IV Azithro - Blood cultures: neg - Urine culture no growth - Legionella negative - Pulmonary consulted - 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, QF gold Indeterminate Sepsis sec to PNA (POA) -Leukocytosis with bandemia -Continue with IV antibiotics -ID on board Anasarca -Likely secondary to fluid overloaded; improving -IV lasix given -Strict I&Os -Renal function stable Hypothyrodism -Chronic, uncontrolled -Levothyroxine 50mcg daily - TSH sl low - dose of Levothyroxine decreased DM -Chronic -Metformin on hold - start Levemir -Insulin coverage scale and hypoglycemia protocol -Hypoglycemia protocol HTN uncontrolled - cont Lasix, Amlodipine, Coreg - increase Losartan to 100 mg daily Schizophrenia -Chronic -Home meds held for now -Depakote levels normal DVT prophylaxis -Lovenox SQ
[2018-08-11] MEDS: Insulin Detemir 100 Units/ml Inj SC SCH (22:28)
[2018-08-12] MEDS: Piperacillin/Tazobact 3.375 GM in Sodium Chloride 0.9% 100 ML IVPB SCH ×3 (00:01→16:37)
[2018-08-12] MEDS: levETIRAcetam 1,000 MG in Sodium Chloride 0.9% 100 ML IVPB SCH ×2 (02:13→16:36)
[2018-08-12 05:14] LABS: ABG ALLEN TEST YES; ARTERIAL BLOOD GAS HCO3 32.3 mmol/L (21-28); ARTERIAL BLOOD GAS HEMOGLOBIN 8.8 g/dL (11.7-17.4); ARTERIAL BLOOD GAS O2 CAPACITY 12.2 mL/dL (16-24); ARTERIAL BLOOD GAS O2 CONTENT 11.8 ML/dL (15-23); ARTERIAL BLOOD GAS O2 SAT 97.1 % (95-98); ARTERIAL BLOOD GAS PCO2 47 mm/Hg (35-45); ARTERIAL BLOOD GAS PH 7.47 (7.35-7.45); ARTERIAL BLOOD GAS PO2 75 mm/Hg (80-100); ARTERIAL BLOOD GAS TCO2 35.6 mmol/L (22-28)
[2018-08-12 05:45] LABS: MEAN CORPUSCULAR HEMOGLOBIN 26.3 pg (27.0-31.0); MEAN CORPUSCULAR HGB CONC 32.1 g/dL (33.0-37.0); RBC 3.43 Mil/uL (3.80-5.20); RED CELL DISTRIBUTION WIDTH 15.4 % (11.5-14.5); WHITE BLOOD COUNT 12.2 K/uL (4.8-10.8)
[2018-08-12 05:46] LABS: BLOOD UREA NITROGEN 27 mg/dl (7-17); GFR NON-AFRICAN AMERICAN 50
[2018-08-12] MEDS: Levothyroxine 50 MCG TAB PO SCH (06:35)
[2018-08-12] MEDS: Insulin Regular 100 units/ml SC SCH ×4 (06:35→21:21)
--- NOTE | 2018-08-12 07:56 | CP.CCUPN ---
<Zi Naranjo - Last Filed: 08/12/18 11:20> CCU Subjective - Physician Review Subjective (Free Text): 08/12/18 10:03 pt seen and examined at bedside this morning. No acute events overnight At approximately 07:38 she self extubated. Remained calm. However saturation decreased to 88% and was placed on ventimask at 50%, O2 sat returned to 98%. pt more alert, however, isnt able to follow commands or appropriately voice responses. CCU Objective - Vital Signs / Intake & Output Vital Signs (Last 4 hours): Vital Signs Temp Pulse Resp BP Pulse Ox 08/12/18 06:33 71 24 161/77 H 100 08/12/18 05:00 55 L 14 140/73 973 H 08/12/18 04:00 99.8 F H 73 18 158/71 H 99 Intake and Output (Last 8hrs): Intake & Output 08/11/18 08/12/18 08/12/18 22:59 06:59 14:59 Intake Total 1850 1330 Output Total 1900 1000 Balance -50 330 Intake: Intake, Piggyback 650 550 Tube Feeding 600 480 Free Water Flush 600 300 Output: Urine 1900 1000 Urethral (Ray) 1900 1000 Other: # Bowel Movements 0 0 - Physical Exam Physical Exam Limitations: Positive for: Altered Mental Status Head: Positive for: Normocephalic Pupils: Positive for: Sluggish Extroacular Muscles: Positive for: EOMI Conjunctiva: Positive for: Normal Ears: Positive for: Normal Mouth: Positive for: Moist Mucous Membranes (ETT tube in place, yellow secretions, OG tube) Nose (External): Positive for: Other Neck: Positive for: Normal Range of Motion Respiratory/Chest: Positive for: Good Air Exchange, Rhonchi, Other (Mechanical ventilation, now on CPAP with Pressure support). Negative for: Respiratory Distress, Rales Cardiovascular: Positive for: Regular Rate and Rhythm. Negative for: Murmurs Abdomen: Positive for: Distention, Normal Bowel Sounds Upper Extremity: Positive for: Edema (trace pitting in upper extremities bl), NORMAL PULSES, Capillary Refill < 2s Lower Extremity: Positive for: NORMAL PULSES, Capillary Refill < 2 s. Negative for: Edema Neurological: Positive for: Other (Eyes open spotnaneously, non verbal, withdraws from pain) Skin: Positive for: Warm, Dry, Rashes Psychiatric: Positive for: Alert (intermittently), Lethargic (improved). Negative for: Oriented x 3, Agitated - Medications Active Medications: Active Medications Generic Name Dose Route Start Last Admin Trade Name Freq PRN Reason Stop Dose Admin Acetaminophen 650 mg 08/03/18 03:33 08/05/18 05:35 Tylenol 325mg Tab PO 650 mg Q6 PRN Administration Fever >100.4 F Amlodipine Besylate 10 mg 08/03/18 09:00 08/11/18 09:00 Norvasc PO 10 mg DAILY LESLIE Administration Aspirin 325 mg 08/03/18 09:00 08/11/18 08:58 Ecotrin PO Not Given DAILY LESLIE Atorvastatin Calcium 10 mg 08/03/18 22:00 08/11/18 21:19 Lipitor PO 10 mg HS LESLIE Administration Carvedilol 25 mg 08/03/18 09:00 08/11/18 16:03 Coreg PO 25 mg BID LESLIE Administration Dextrose 0 ml 08/03/18 03:35 Dextrose 50% Inj IV STAT PRN Hypoglycemia Protocol Protocol Dextrose 0 gm 08/03/18 03:35 Glutose 15 PO ONCE PRN Hypoglycemia Protocol Protocol Divalproex Sodium 1,250 mg 08/03/18 22:00 08/03/18 21:56 Depakote Er(Once Daily) PO 1,250 mg HS LESLIE Administration Enoxaparin Sodium 40 mg 08/09/18 09:00 08/11/18 08:59 Lovenox SC 40 mg DAILY LESLIE Administration Protocol Escitalopram Oxalate 10 mg 08/03/18 22:00 08/03/18 21:31 Lexapro PO 10 mg HS LESLIE Administration Fluticasone Propionate 2 spr 08/03/18 09:00 08/11/18 08:58 Flonase ANIKA 2 spr DAILY LESLIE Administration Furosemide 40 mg 08/06/18 09:00 08/11/18 16:03 Lasix IVP 40 mg BID LESLIE Administration Glucagon 0 mg 08/03/18 03:35 Glucagen Diagnostic Kit IM STAT PRN Hypoglycemia Protocol Protocol Piperacillin Sod/Tazobactam 100 mls @ 100 mls/hr 08/03/18 11:00 08/12/18 00:01 Sod 3.375 gm/ Sodium Chloride IVPB 100 mls/hr Q8 LESLIE Administration Protocol Levetiracetam 1,000 mg/ Sodium 110 mls @ 110 mls/hr 08/06/18 15:00 08/12/18 02:13 Chloride IVPB 110 mls/hr Q12@0300,1500 LESLIE Administration Acyclovir 800 mg/ Sodium 250 mls @ 250 mls/hr 08/09/18 12:15 08/12/18 01:13 Chloride IVPB 250 mls/hr Q8 LESLIE Administration Protocol Ibuprofen 600 mg 08/03/18 13:30 08/11/18 23:18 Motrin Tab PO 600 mg Q6 PRN Administration Fever >100.4 F Insulin Detemir 20 units 08/09/18 22:00 08/11/18 22:28 Levemir SC 20 units HS LESLIE Administration Insulin Human Regular 0 units 08/07/18 11:30 08/12/18 06:35 Humulin R SC 2 units ACHS LESLIE Administration Protocol Lactulose 20 gm 08/08/18 17:16 08/09/18 11:03 Enulose PO 20 gm Q12 PRN Administration Constipation Levothyroxine Sodium 50 mcg 08/04/18 06:30 08/12/18 06:35 Synthroid PO 50 mcg DAILY@0630 LESLIE Administration Losartan Potassium 100 mg 08/10/18 09:00 08/11/18 08:56 Cozaar PO 100 mg DAILY LESLIE Administration Morphine Sulfate 4 mg 08/10/18 22:25 08/12/18 07:32 Morphine IVP 4 mg Q4H PRN Administration Agitation Multivitamins/Minerals 1 tab 08/03/18 09:00 08/11/18 09:03 Therapeutic-M Tab PO Not Given DAILY LESLIE Pantoprazole Sodium 20 mg 08/03/18 09:00 08/11/18 09:03 Protonix Ec Tab PO Not Given DAILY LESLIE Pantoprazole Sodium 40 mg 08/11/18 09:45 08/11/18 14:17 Protonix Inj IVP 40 mg DAILY LESLIE Administration Sitagliptin Phosphate 100 mg 08/03/18 22:00 08/11/18 21:19 Januvia PO 100 mg HS LESLIE Administration - Patient Studies Lab Studies: Microbiology Studies 08/08/18 08:00 Mycobacterial Culture - Preliminary Other: Please Indicate Lab Studies 08/12/18 08/12/18 08/12/18 Range/Units 05:00 04:41 04:20 WBC (4.8-10.8) K/uL RBC (3.80-5.20) Mil/uL Hgb (12.0-16.0) g/dL Hct (34.0-47.0) % MCV (81.0-99.0) fl MCH (27.0-31.0) pg MCHC (33.0-37.0) g/dL RDW (11.5-14.5) % Plt Count (130-400) K/uL pCO2 47 H (35-45) mm/Hg pO2 75 L (80-100) mm/Hg HCO3 32.3 H (21-28) mmol/L ABG pH 7.47 H (7.35-7.45) ABG Total CO2 35.6 H (22-28) mmol/L ABG O2 Saturation 97.1 (95-98) % ABG O2 Content 11.8 L (15-23) ML/dL ABG Base Excess 9.5 H (-2.0-3.0) mmol/L ABG Hemoglobin 8.8 L (11.7-17.4) g/dL ABG Carboxyhemoglobin 1.2 (0.5-1.5) % POC ABG HHb (Measured) 2.8 (0.0-5.0) % ABG Methemoglobin 1.3 (0.0-3.0) % ABG O2 Capacity 12.2 L (16-24) mL/dL Bridger Test Yes A-a O2 Difference 151.0 mm/Hg Hgb O2 Saturation 94.8 L (95.0-98.0) % Vent Mode A/c Mechanical Rate 14 FiO2 40.0 % Tidal Volume 450 PEEP 5 CPAP Sodium 148 (132-148) mmol/l Potassium 3.6 (3.6-5.0) MMOL/L Chloride 108 H (98-107) mmol/L Carbon Dioxide 31 H (22-30) mmol/L Anion Gap 13 (10-20) BUN 27 H (7-17) mg/dl Creatinine 1.1 (0.7-1.2) mg/dl Est GFR ( Amer) > 60 Est GFR (Non-Af Amer) 50 POC Glucose (mg/dL) 176 H (65-110) mg/dL Random Glucose 200 H (65-105) mg/dL Calcium 10.0 (8.4-10.2) mg/dL 08/12/18 08/11/18 08/11/18 Range/Units 04:20 21:39 16:57 WBC 12.2 H (4.8-10.8) K/uL RBC 3.43 L (3.80-5.20) Mil/uL Hgb 9.0 L (12.0-16.0) g/dL Hct 28.1 L (34.0-47.0) % MCV 82.0 D (81.0-99.0) fl MCH 26.3 L (27.0-31.0) pg MCHC 32.1 L (33.0-37.0) g/dL RDW 15.4 H (11.5-14.5) % Plt Count 589 H (130-400) K/uL pCO2 (35-45) mm/Hg pO2 (80-100) mm/Hg HCO3 (21-28) mmol/L ABG pH (7.35-7.45) ABG Total CO2 (22-28) mmol/L ABG O2 Saturation (95-98) % ABG O2 Content (15-23) ML/dL ABG Base Excess (-2.0-3.0) mmol/L ABG Hemoglobin (11.7-17.4) g/dL ABG Carboxyhemoglobin (0.5-1.5) % POC ABG HHb (Measured) (0.0-5.0) % ABG Methemoglobin (0.0-3.0) % ABG O2 Capacity (16-24) mL/dL Bridger Test A-a O2 Difference mm/Hg Hgb O2 Saturation (95.0-98.0) % Vent Mode Mechanical Rate FiO2 % Tidal Volume PEEP CPAP Sodium (132-148) mmol/l Potassium (3.6-5.0) MMOL/L Chloride (98-107) mmol/L Carbon Dioxide (22-30) mmol/L Anion Gap (10-20) BUN (7-17) mg/dl Creatinine (0.7-1.2) mg/dl Est GFR ( Amer) Est GFR (Non-Af Amer) POC Glucose (mg/dL) 227 H 135 H (65-110) mg/dL Random Glucose (65-105) mg/dL Calcium (8.4-10.2) mg/dL 08/11/18 08/11/18 Range/Units 11:17 10:50 WBC (4.8-10.8) K/uL RBC (3.80-5.20) Mil/uL Hgb (12.0-16.0) g/dL Hct (34.0-47.0) % MCV (81.0-99.0) fl MCH (27.0-31.0) pg MCHC (33.0-37.0) g/dL RDW (11.5-14.5) % Plt Count (130-400) K/uL pCO2 49 H (35-45) mm/Hg pO2 83 (80-100) mm/Hg HCO3 31.9 H (21-28) mmol/L ABG pH 7.45 (7.35-7.45) ABG Total CO2 35.6 H (22-28) mmol/L ABG O2 Saturation 96.9 (95-98) % ABG O2 Content 12.3 L (15-23) ML/dL ABG Base Excess 9.0 H (-2.0-3.0) mmol/L ABG Hemoglobin 9.1 L (11.7-17.4) g/dL ABG Carboxyhemoglobin 0.7 (0.5-1.5) % POC ABG HHb (Measured) 3.0 (0.0-5.0) % ABG Methemoglobin 1.1 (0.0-3.0) % ABG O2 Capacity 12.7 L (16-24) mL/dL Bridger Test Yes A-a O2 Difference 141.0 mm/Hg Hgb O2 Saturation 95.1 (95.0-98.0) % Vent Mode Cpap Mechanical Rate FiO2 40.0 % Tidal Volume PEEP 5 CPAP 10 Sodium (132-148) mmol/l Potassium (3.6-5.0) MMOL/L Chloride (98-107) mmol/L Carbon Dioxide (22-30) mmol/L Anion Gap (10-20) BUN (7-17) mg/dl Creatinine (0.7-1.2) mg/dl Est GFR ( Amer) Est GFR (Non-Af Amer) POC Glucose (mg/dL) 202 H (65-110) mg/dL Random Glucose (65-105) mg/dL Calcium (8.4-10.2) mg/dL Laboratory Results - last 24 hr 08/11/18 08/11/18 08/11/18 10:50 11:17 16:57 WBC RBC Hgb Hct MCV MCH MCHC RDW Plt Count pCO2 49 H pO2 83 HCO3 31.9 H ABG pH 7.45 ABG Total CO2 35.6 H ABG O2 Saturation 96.9 ABG O2 Content 12.3 L ABG Base Excess 9.0 H ABG Hemoglobin 9.1 L ABG Carboxyhemoglobin 0.7 POC ABG HHb (Measured) 3.0 ABG Methemoglobin 1.1 ABG O2 Capacity 12.7 L Bridger Test Yes A-a O2 Difference 141.0 Hgb O2 Saturation 95.1 Vent Mode Cpap Mechanical Rate FiO2 40.0 Tidal Volume PEEP 5 CPAP 10 Sodium Potassium Chloride Carbon Dioxide Anion Gap BUN Creatinine Est GFR ( Amer) Est GFR (Non-Af Amer) POC Glucose (mg/dL) 202 H 135 H Random Glucose Calcium 08/11/18 08/12/18 08/12/18 21:39 04:20 04:20 WBC 12.2 H RBC 3.43 L Hgb 9.0 L Hct 28.1 L MCV 82.0 D MCH 26.3 L MCHC 32.1 L RDW 15.4 H Plt Count 589 H pCO2 pO2 HCO3 ABG pH ABG Total CO2 ABG O2 Saturation ABG O2 Content ABG Base Excess ABG Hemoglobin ABG Carboxyhemoglobin POC ABG HHb (Measured) ABG Methemoglobin ABG O2 Capacity Bridger Test A-a O2 Difference Hgb O2 Saturation Vent Mode Mechanical Rate FiO2 Tidal Volume PEEP CPAP Sodium 148 Potassium 3.6 Chloride 108 H Carbon Dioxide 31 H Anion Gap 13 BUN 27 H Creatinine 1.1 Est GFR ( Amer) > 60 Est GFR (Non-Af Amer) 50 POC Glucose (mg/dL) 227 H Random Glucose 200 H Calcium 10.0 08/12/18 08/12/18 04:41 05:00 WBC RBC Hgb Hct MCV MCH MCHC RDW Plt Count pCO2 47 H pO2 75 L HCO3 32.3 H ABG pH 7.47 H ABG Total CO2 35.6 H ABG O2 Saturation 97.1 ABG O2 Content 11.8 L ABG Base Excess 9.5 H ABG Hemoglobin 8.8 L ABG Carboxyhemoglobin 1.2 POC ABG HHb (Measured) 2.8 ABG Methemoglobin 1.3 ABG O2 Capacity 12.2 L Bridger Test Yes A-a O2 Difference 151.0 Hgb O2 Saturation 94.8 L Vent Mode A/c Mechanical Rate 14 FiO2 40.0 Tidal Volume 450 PEEP 5 CPAP Sodium Potassium Chloride Carbon Dioxide Anion Gap BUN Creatinine Est GFR ( Amer) Est GFR (Non-Af Amer) POC Glucose (mg/dL) 176 H Random Glucose Calcium Fingerstick Blood Sugar Results: 176 Review of Systems - Review of Systems Systems not reviewed;Unavailable: Altered Mental Status Critical Care Progress Note - Nutrition Nutrition: Nutrition Category Date Time Status NPO Diet [DIET] Diets 08/04/18 Breakfast Active Assessment/Plan - Assessment and Plan (Free Text) Assessment: 62 yo F with pmhx of HTN, DM2, Hypothyroid, GERD, schizophrenia s/p fall in [facility], admitted for sepsis secondary to pneumonia, experienced an episode of bradycardia and code blue was called for PEA with ROSC after epinephrine x3. Plan: 1) AMS - possibly 2/2 Toxic metabolic encephalopathy - AMS, Schizophrenia - Pt self extubated this am; on ventimask at 50% saturating at 98% - Speech therapy for swallow eval; if pass:consider restarting PO meds - Considering consulting Psych/restarting psych home meds - Empiric IV Acyclovir 2) Pneumonia -Fever of 101.4 on 08/11/2018 -reynaga cultures pending -leukocytes: 12.2 -Airbone isolation 2/2 hx of positive PPD, living in [facility] -AFB negative x1 pending 2 -Quant gold: indeterminate -Legionella: negative -CXR -Continue: IVABX: zosyn -s/p Vancomycin -ID: Dr. Castorena: continue IV ABX 3) s/p Cardiac arrest -ROSC -EKG NSR -troponin: neg x4 4) s/p Intubation - self extubated this am 5) Sepsis - Lactic acid: 1.9 from 3.2 on admission - leukocytes: 12.2 - bcx: no growth;final; Urine cx: negative, final - f/u re-reynaga culture on 08/11 - afebrile now 6) DM 2 - SS Insulin medium coverage - Januvia - Metformin held 7) Schizophrenia -Consider resuming home meds 8) Elevated Transaminitis -Improving - AST: 103 > 113 > 78 > 37 - ALT: 99 > 146 > 118 > 64 - Alk Phos: 148 > 191 > 184 > 162 - GGT: 72 9) Constipation - Lactulose 10) Hypothyroid - Levothyroxine 50 mcg 11) Seizure activity -Resolved -Dr. Keller: focal seizure on EEG; keppra 1000 mg BID; D/C Clozapine -CT head: No intracranial hemorrhage or mass effect. Cerebral atrophy and similar chronic microvascular ischemic changes. Paranasal sinus inflammatory changes-interval air-fluid level/sinusitis sphenoid sinus now noted. -Brain MRI: unable to be performed 2/2 body habitus. 12) PT -for out of bed trial Case dw Dr. Obdulio Naranjo MD PGY2 <Dillon Mak - Last Filed: 08/12/18 15:57> CCU Subjective - Physician Review Subjective (Free Text): Attestation: Patient seen and examined at the bedside with Resident Dr. Justus Naranjo; and I agree with his outline of plans and management documented above and below, reflecting my review of all applicable clinical data, and participation in the care of the patient throughout the day in ICU; today, August 12, 2018. Patient self-extubated, no apparent, immediate complications nor distress, agitated in bed, SPo2 96% on Ventimask. Non-verbal and not following simple commands, family notified, arrived to bedside and patient noticeably calmer when daughter and son present. Over the next several hours post-extubation, exhibited hyperactive Delirium, with legs and arms moving associated with desaturation, oxygen administration changed to nasal cannula from for patient comfort, but later required advancement to HFNC, now on 80% oxygen at 20 LPM with best Spo2 93%. BiPAP not used 2 noncompliance with face mask application. Discussed events with the daughter at the bedside including possible need for re-intubation and re-institution of MV support. May need Psychiatric eval if previously held meds (Clozapine and Lexapro) are resumed since they are seizure- genic.
[2018-08-12] MEDS: Enoxaparin 40 mg Syringe SC SCH (08:32)
[2018-08-12] MEDS ORDERED: Albuterol-Ipratrop 3 mg / 0.5 (3 ml) UD INH PRN (13:31)
--- NOTE | 2018-08-12 13:41 | CP.PCM.PN ---
Subjective - Date & Time of Evaluation Date of Evaluation: 08/12/18 Time of Evaluation: 06:00 - Subjective Subjective: self extubated afeb altered as before NAD Objective - Vital Signs/Intake and Output Vital Signs (last 24 hours): Temp Pulse Resp BP Pulse Ox 99.9 F H 88 28 H 174/35 H 96 08/12/18 12:00 08/12/18 12:00 08/12/18 12:00 08/12/18 12:00 08/12/18 12:00 Intake and Output: 08/12/18 08/12/18 06:59 18:59 Intake Total 1660 350 Output Total 1000 Balance 660 350 - Medications Medications: Current Medications Acetaminophen (Tylenol 325mg Tab) 650 mg PO Q6 PRN PRN Reason: Fever >100.4 F Last Admin: 08/05/18 05:35 Dose: 650 mg Albuterol/Ipratropium (Duoneb 3 Mg/0.5 Mg (3 Ml) Ud) 3 ml INH RQ6 PRN PRN Reason: Shortness of Breath Amlodipine Besylate (Norvasc) 10 mg PO DAILY [facility] Last Admin: 08/12/18 08:33 Dose: Not Given Aspirin (Ecotrin) 325 mg PO DAILY [facility] Last Admin: 08/11/18 08:58 Dose: Not Given Atorvastatin Calcium (Lipitor) 10 mg PO HS [facility] Last Admin: 08/11/18 21:19 Dose: 10 mg Carvedilol (Coreg) 25 mg PO BID [facility] Last Admin: 08/12/18 08:31 Dose: Not Given Dextrose (Dextrose 50% Inj) 0 ml IV STAT PRN; Protocol PRN Reason: Hypoglycemia Protocol Dextrose (Glutose 15) 0 gm PO ONCE PRN; Protocol PRN Reason: Hypoglycemia Protocol Divalproex Sodium (Depakote Er(Once Daily)) 1,250 mg PO HS [facility] Last Admin: 08/03/18 21:56 Dose: 1,250 mg Enoxaparin Sodium (Lovenox) 40 mg SC DAILY [facility]; Protocol Last Admin: 08/12/18 08:32 Dose: 40 mg Escitalopram Oxalate (Lexapro) 10 mg PO HS [facility] Last Admin: 08/03/18 21:31 Dose: 10 mg Fluticasone Propionate (Flonase) 2 spr ANIKA DAILY [facility] Last Admin: 08/12/18 08:32 Dose: 2 spr Furosemide (Lasix) 40 mg IVP BID [facility] Last Admin: 08/12/18 08:32 Dose: 40 mg Glucagon (Glucagen Diagnostic Kit) 0 mg IM STAT PRN; Protocol PRN Reason: Hypoglycemia Protocol Haloperidol Lactate (Haldol) 5 mg IVP Q8 PRN PRN Reason: Agitation Last Admin: 08/12/18 13:32 Dose: 5 mg Piperacillin Sod/Tazobactam (Sod 3.375 gm/ Sodium Chloride) 100 mls @ 100 mls/hr IVPB Q8 [facility]; Protocol Last Admin: 08/12/18 08:34 Dose: 100 mls/hr Levetiracetam 1,000 mg/ Sodium (Chloride) 110 mls @ 110 mls/hr IVPB Q12@0300,1500 [facility] Last Admin: 08/12/18 02:13 Dose: 110 mls/hr Acyclovir 800 mg/ Sodium (Chloride) 250 mls @ 250 mls/hr IVPB Q8 [facility]; Protocol Last Admin: 08/12/18 08:36 Dose: 250 mls/hr Ibuprofen (Motrin Tab) 600 mg PO Q6 PRN PRN Reason: Fever >100.4 F Last Admin: 08/11/18 23:18 Dose: 600 mg Insulin Detemir (Levemir) 20 units SC HS [facility] Last Admin: 08/11/18 22:28 Dose: 20 units Insulin Human Regular (Humulin R) 0 units SC ACHS [facility]; Protocol Last Admin: 08/12/18 12:24 Dose: Not Given Lactulose (Enulose) 20 gm PO Q12 PRN PRN Reason: Constipation Last Admin: 08/09/18 11:03 Dose: 20 gm Levothyroxine Sodium (Synthroid) 50 mcg PO DAILY@0630 [facility] Last Admin: 08/12/18 06:35 Dose: 50 mcg Losartan Potassium (Cozaar) 100 mg PO DAILY [facility] Last Admin: 08/12/18 08:31 Dose: Not Given Morphine Sulfate (Morphine) 4 mg IVP Q4H PRN PRN Reason: Agitation Last Admin: 08/12/18 12:49 Dose: 4 mg Multivitamins/Minerals (Therapeutic-M Tab) 1 tab PO DAILY [facility] Last Admin: 08/11/18 09:03 Dose: Not Given Pantoprazole Sodium (Protonix Ec Tab) 20 mg PO DAILY [facility] Last Admin: 08/11/18 09:03 Dose: Not Given Pantoprazole Sodium (Protonix Inj) 40 mg IVP DAILY [facility] Last Admin: 08/12/18 08:33 Dose: 40 mg Sitagliptin Phosphate (Januvia) 100 mg PO HS [facility] Last Admin: 08/11/18 21:19 Dose: 100 mg - Labs Labs: 08/12/18 04:20 08/12/18 04:20 PT 12.2 Seconds (9.8-13.1) 08/04/18 00:30 INR 1.1 08/04/18 00:30 APTT 31.5 Seconds (25.6-37.1) 08/02/18 22:20 - Constitutional Appears: Confused, Chronically Ill - Head Exam Head Exam: NORMOCEPHALIC - Eye Exam Eye Exam: absent: Scleral icterus - ENT Exam ENT Exam: Mucous Membranes Dry - Neck Exam Neck Exam: absent: Lymphadenopathy - Respiratory Exam Respiratory Exam: Decreased Breath Sounds - Cardiovascular Exam Cardiovascular Exam: REGULAR RHYTHM - GI/Abdominal Exam GI & Abdominal Exam: Distended, Soft - Rectal Exam Rectal Exam: Deferred Assessment and Plan (1) Pneumonia Status: Acute (2) Severe sepsis Status: Acute - Assessment and Plan (Free Text) Assessment: no new cultures cont supportive care / IV Rx
--- NOTE | 2018-08-12 14:12 | CP.PCM.PN ---
Subjective - Date & Time of Evaluation Date of Evaluation: 08/12/18 Time of Evaluation: 07:30 - Subjective Subjective: pt was intubated today currently HD stable extensive discussions with family Objective - Vital Signs/Intake and Output Vital Signs (last 24 hours): Temp Pulse Resp BP Pulse Ox 99.9 F H 88 28 H 174/35 H 96 08/12/18 12:00 08/12/18 12:00 08/12/18 12:00 08/12/18 12:00 08/12/18 12:00 Intake and Output: 08/12/18 08/12/18 06:59 18:59 Intake Total 1660 350 Output Total 1000 Balance 660 350 - Medications Medications: Current Medications Acetaminophen (Tylenol 325mg Tab) 650 mg PO Q6 PRN PRN Reason: Fever >100.4 F Last Admin: 08/05/18 05:35 Dose: 650 mg Albuterol/Ipratropium (Duoneb 3 Mg/0.5 Mg (3 Ml) Ud) 3 ml INH RQ6 PRN PRN Reason: Shortness of Breath Last Admin: 08/12/18 13:52 Dose: 3 ml Amlodipine Besylate (Norvasc) 10 mg PO DAILY [facility] Last Admin: 08/12/18 08:33 Dose: Not Given Aspirin (Ecotrin) 325 mg PO DAILY [facility] Last Admin: 08/11/18 08:58 Dose: Not Given Atorvastatin Calcium (Lipitor) 10 mg PO HS [facility] Last Admin: 08/11/18 21:19 Dose: 10 mg Carvedilol (Coreg) 25 mg PO BID [facility] Last Admin: 08/12/18 08:31 Dose: Not Given Dextrose (Dextrose 50% Inj) 0 ml IV STAT PRN; Protocol PRN Reason: Hypoglycemia Protocol Dextrose (Glutose 15) 0 gm PO ONCE PRN; Protocol PRN Reason: Hypoglycemia Protocol Divalproex Sodium (Depakote Er(Once Daily)) 1,250 mg PO HS [facility] Last Admin: 08/03/18 21:56 Dose: 1,250 mg Enoxaparin Sodium (Lovenox) 40 mg SC DAILY [facility]; Protocol Last Admin: 08/12/18 08:32 Dose: 40 mg Escitalopram Oxalate (Lexapro) 10 mg PO HS [facility] Last Admin: 08/03/18 21:31 Dose: 10 mg Fluticasone Propionate (Flonase) 2 spr ANIKA DAILY [facility] Last Admin: 08/12/18 08:32 Dose: 2 spr Furosemide (Lasix) 40 mg IVP BID [facility] Last Admin: 08/12/18 08:32 Dose: 40 mg Glucagon (Glucagen Diagnostic Kit) 0 mg IM STAT PRN; Protocol PRN Reason: Hypoglycemia Protocol Haloperidol Lactate (Haldol) 5 mg IVP Q8 PRN PRN Reason: Agitation Last Admin: 08/12/18 13:32 Dose: 5 mg Piperacillin Sod/Tazobactam (Sod 3.375 gm/ Sodium Chloride) 100 mls @ 100 mls/hr IVPB Q8 [facility]; Protocol Last Admin: 08/12/18 08:34 Dose: 100 mls/hr Levetiracetam 1,000 mg/ Sodium (Chloride) 110 mls @ 110 mls/hr IVPB Q12@0300,1500 [facility] Last Admin: 08/12/18 02:13 Dose: 110 mls/hr Acyclovir 800 mg/ Sodium (Chloride) 250 mls @ 250 mls/hr IVPB Q8 [facility]; Protocol Last Admin: 08/12/18 08:36 Dose: 250 mls/hr Ibuprofen (Motrin Tab) 600 mg PO Q6 PRN PRN Reason: Fever >100.4 F Last Admin: 08/11/18 23:18 Dose: 600 mg Insulin Detemir (Levemir) 20 units SC HS [facility] Last Admin: 08/11/18 22:28 Dose: 20 units Insulin Human Regular (Humulin R) 0 units SC ACHS [facility]; Protocol Last Admin: 08/12/18 12:24 Dose: Not Given Lactulose (Enulose) 20 gm PO Q12 PRN PRN Reason: Constipation Last Admin: 08/09/18 11:03 Dose: 20 gm Levothyroxine Sodium (Synthroid) 50 mcg PO DAILY@0630 [facility] Last Admin: 08/12/18 06:35 Dose: 50 mcg Losartan Potassium (Cozaar) 100 mg PO DAILY [facility] Last Admin: 08/12/18 08:31 Dose: Not Given Morphine Sulfate (Morphine) 4 mg IVP Q4H PRN PRN Reason: Agitation Last Admin: 08/12/18 12:49 Dose: 4 mg Multivitamins/Minerals (Therapeutic-M Tab) 1 tab PO DAILY [facility] Last Admin: 08/11/18 09:03 Dose: Not Given Pantoprazole Sodium (Protonix Ec Tab) 20 mg PO DAILY [facility] Last Admin: 08/11/18 09:03 Dose: Not Given Pantoprazole Sodium (Protonix Inj) 40 mg IVP DAILY [facility] Last Admin: 08/12/18 08:33 Dose: 40 mg Sitagliptin Phosphate (Januvia) 100 mg PO HS [facility] Last Admin: 08/11/18 21:19 Dose: 100 mg - Labs Labs: 08/12/18 04:20 08/12/18 04:20 PT 12.2 Seconds (9.8-13.1) 08/04/18 00:30 INR 1.1 08/04/18 00:30 APTT 31.5 Seconds (25.6-37.1) 08/02/18 22:20 - Constitutional Appears: Non-toxic, No Acute Distress - Head Exam Head Exam: ATRAUMATIC, NORMOCEPHALIC - Eye Exam Eye Exam: EOMI, Normal appearance - ENT Exam ENT Exam: Mucous Membranes Moist Additional comments: intubated - Respiratory Exam Respiratory Exam: Clear to Ausculation Bilateral, NORMAL BREATHING PATTERN. absent: Accessory Muscle Use - Cardiovascular Exam Cardiovascular Exam: RRR, +S1, +S2 - GI/Abdominal Exam GI & Abdominal Exam: Soft, Normal Bowel Sounds - Extremities Exam Extremities Exam: Normal Capillary Refill. absent: Joint Swelling - Back Exam Back Exam: NORMAL INSPECTION. absent: rash noted - Neurological Exam Additional comments: intubated sedated normal reflexes - Psychiatric Exam Additional comments: unable to assess 2/2 intubated - Skin Skin Exam: Normal Color, Warm Assessment and Plan - Assessment and Plan (Free Text) Plan: 62 [place], with hx of DM II, schizophrenia and HTN; initially admitted for sepsis and pneumonia. Initial labs were significant for leukocytosis with bandemia; CXR showed atelectasis vs infiltrate and pt was started on vancomycin, zosyn and zithromax IV. During the admission, pt was found to be bradycardic and became unresponsive. Code Blue was called for suspected Pulseless Electrical Activity; compressions done ,was achieved after 3 rounds of epinephrine. She was then transferred to ICU. When weaned off sedation, mental status changes appreciated per family when comp ared to her baseline. Neurology was consulted and EEG was ordered, which showed left frontal focal seizures. MRI cannot be done due to body habitus. s/p Cardio/Respiratory Arrest -s/p Code Blue ( 3 doses of epinephrine) -Reintubated, sedated. -EKG wnl and troponin neg x2 Left frontal focal seizures -As seen on EEG; as per neuro due to pts infection and antipsychotic lowered seizure threshold; appear to have resolved now - Keppra 1000 mg Q12 - Clozapine discontinued - Neuro on board AMS prob Encephalopathy due to Sepsis Dr Keller rec MRI of Brain to r/o Encephalitis - unable to do due to body habitus ( unable to fit into MRI) empirically started on IV Acyclovir as discussed with Dr Castorena, cont Pneumonia, likely bacterial - CXR significant for for Interval patchy atelectasis or infiltrate right base and left perihilar/medial basilar distributions, as well as pleural effusions - ID on board; Pt received azithromycin, vancomycin and zosyn , Dr Castorena d/c IV Vanco today 08/09, completed 1 wk of IV Azithro - Blood cultures: neg - Urine culture no growth - Legionella negative - Pulmonary consulted - 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, QF gold Indeterminate Sepsis sec to PNA (POA) -Leukocytosis with bandemia -Continue with IV antibiotics -ID on board Anasarca -Likely secondary to fluid overloaded; improving -IV lasix given -Strict I&Os -Renal function stable Hypothyrodism -Chronic, uncontrolled -Levothyroxine 50mcg daily - TSH sl low - dose of Levothyroxine decreased DM -Chronic -Metformin on hold - start Levemir -Insulin coverage scale and hypoglycemia protocol -Hypoglycemia protocol HTN uncontrolled - cont Lasix, Amlodipine, Coreg - increase Losartan to 100 mg daily Schizophrenia -Chronic -Home meds held for now -Depakote levels normal DVT prophylaxis -Lovenox SQ
--- NOTE | 2018-08-12 16:27 | RAD ---
Date of service: 08/12/2018 HISTORY: Intubated. COMPARISON: No prior. Study is slightly limited by right-sided patient rotation. FINDINGS: In situ ETT, tip of which lies approximately 4.1 cm above rojas.. In situ NGT is present, the tip of which has not been included on this film though distal aspect does lie midline, well below EG junction. LUNGS: Minor bibasilar atelectasis. PLEURA: No significant pleural effusion identified, no pneumothorax apparent. CARDIOVASCULAR: No obvious aortic atherosclerotic calcification present. Borderline/mild cardiomegaly no pulmonary vascular congestion. OSSEOUS STRUCTURES: No significant abnormalities. VISUALIZED UPPER ABDOMEN: Normal. OTHER FINDINGS: None. IMPRESSION: Suspect minor bibasilar atelectasis. ETT and NGT as above.
[2018-08-12] MEDS ORDERED: Chlorhexidine Gluconate 1 APPL/PKT TP ONE (16:41)
[2018-08-12] MEDS ORDERED: Propofol 10 mg/ml 2,000 MG/200 ML VIAL ONE (17:20)
[2018-08-12] MEDS ORDERED: Propofol 10 mg/ml Inj (20 ML) IV ONE (17:47)
[2018-08-12] MEDS: Propofol 10 mg/ml 1,000 MG/100 ML VIAL IV SCH (17:53)
--- NOTE | 2018-08-12 18:04 | PCM.PROC ---
Procedures Attestation:: I certify that I have explained the specified Operation(s) or Procedure(s), risks, benefits and reasonable alternatives to the Patient and/or other person responsible. The opportunity was given to ask questions and all questions answered - Intubation Time Out Performed: Yes Sedative: Other Mg Given: Propofol 70 mg Laryngoscope: Archie ET Tube Size: 7.5 ET Tube Secured at Depth: 21 ET Tube Secured Locarion: Lips ET Tube Placement Confirmation: Visualized Passing Through Cords, Breath Sounds Equal Bilaterally, No Breath Sounds Over Epigastrum, Confirmation w/Capnometry Patient Tolerated Procedure: Well Procedure Immediate Complications: None
[2018-08-12] MEDS: Insulin Detemir 100 Units/ml Inj SC SCH (21:25)
[2018-08-12 21:55] LABS: ABG ALLEN TEST YES; ARTERIAL BLOOD GAS HCO3 31.5 mmol/L (21-28); ARTERIAL BLOOD GAS O2 SAT 81.2 % (95-98); ARTERIAL BLOOD GAS PCO2 70 mm/Hg (35-45); ARTERIAL BLOOD GAS PH 7.33 (7.35-7.45); ARTERIAL BLOOD GAS PO2 47 mm/Hg (80-100)
[2018-08-13] MEDS: Piperacillin/Tazobact 3.375 GM in Sodium Chloride 0.9% 100 ML IVPB SCH ×3 (01:09→16:56)
[2018-08-13] MEDS: levETIRAcetam 1,000 MG in Sodium Chloride 0.9% 100 ML IVPB SCH ×2 (03:01→17:43)
[2018-08-13] MEDS: Propofol 10 mg/ml 1,000 MG/100 ML VIAL IV SCH ×3 (03:07→17:08)
[2018-08-13 05:34] LABS: ABG ALLEN TEST YES; ARTERIAL BLOOD GAS HEMOGLOBIN 9.3 g/dL (11.7-17.4); ARTERIAL BLOOD GAS O2 CONTENT 12.8 ML/dL (15-23); ARTERIAL BLOOD GAS O2 SAT 98.6 % (95-98); ARTERIAL BLOOD GAS PCO2 35 mm/Hg (35-45); ARTERIAL BLOOD GAS PH 7.55 (7.35-7.45); ARTERIAL BLOOD GAS PO2 101 mm/Hg (80-100); ARTERIAL BLOOD GAS TCO2 31.7 mmol/L (22-28)
[2018-08-13 05:41] LABS: HEMOGLOBIN 9.3 g/dL (12.0-16.0); MEAN CELL VOLUME 80.5 fl (81.0-99.0); MEAN CORPUSCULAR HEMOGLOBIN 25.8 pg (27.0-31.0); MEAN CORPUSCULAR HGB CONC 32.1 g/dL (33.0-37.0); RBC 3.59 Mil/uL (3.80-5.20); RED CELL DISTRIBUTION WIDTH 15.7 % (11.5-14.5)
[2018-08-13] MEDS: Levothyroxine 50 MCG TAB PO SCH (05:53)
[2018-08-13 06:07] LABS: CALCIUM 9.6 mg/dL (8.4-10.2)
--- NOTE | 2018-08-13 09:30 | RAD ---
Date of service: 08/12/2018 HISTORY: [id number] COMPARISON: 08/12/2018 at 5:52 a.m. FINDINGS: LUNGS: No active pulmonary disease. PLEURA: No significant pleural effusion identified, no pneumothorax apparent. CARDIOVASCULAR: Minimal atherosclerotic calcification of the aortic arch is noted. Normal cardiac size. No congestive change. ET tube tip approximately 1 cm above the tracheal rojas. Repositioning should be considered. Nasogastric tube extends beneath the diaphragm OSSEOUS STRUCTURES: No significant abnormality VISUALIZED UPPER ABDOMEN: Normal. OTHER FINDINGS: None. IMPRESSION: ET tube tip approximately 1 cm above the tracheal rojas. Repositioning should be considered. Findings discussed with ICU nurse Ngoc by telephone at 9:23 a.m. on 08/13/2018.
--- NOTE | 2018-08-13 09:41 | RAD ---
Date of service: 08/13/2018 HISTORY: intubation COMPARISON: 08/12/2018 FINDINGS: LUNGS: No active pulmonary disease. PLEURA: No significant pleural effusion identified, no pneumothorax apparent. CARDIOVASCULAR: No aortic atherosclerotic calcification present. ETT tip approximately 2.7 cm above tracheal rojas. This has been repositioned from the prior examination. Nasogastric tube extends beneath the diaphragm. No pulmonary vascular congestion. OSSEOUS STRUCTURES: No significant abnormalities. VISUALIZED UPPER ABDOMEN: Normal. OTHER FINDINGS: None. IMPRESSION: ETT repositioned approximately 2.7 cm proximal to the tracheal orjas.
[2018-08-13] MEDS: Enoxaparin 40 mg Syringe SC SCH (09:46)
--- NOTE | 2018-08-13 09:55 | CP.CCUPN ---
<Zi Naranjo - Last Filed: 08/13/18 11:52> CCU Subjective - Physician Review Subjective (Free Text): 08/13/18 11:53 Pt seen and examined this AM. Mechanical ventillation. currently afebrile. AMS. Daughter at bedside CCU Objective - Vital Signs / Intake & Output Vital Signs (Last 4 hours): Vital Signs Temp Pulse Resp BP Pulse Ox 08/13/18 09:46 74 166/76 H 08/13/18 09:45 166/76 H 08/13/18 09:44 74 166/76 H 08/13/18 09:40 68 166/76 H 08/13/18 09:00 74 17 166/76 H 100 08/13/18 08:00 98.3 F 63 14 157/82 H 100 Intake and Output (Last 8hrs): Intake & Output 08/12/18 08/13/18 08/13/18 22:59 06:59 14:59 Intake Total 536 493 560 Output Total 2500 350 Balance -1964 143 560 Intake: IV 86 143 60 Intake, Piggyback 450 350 350 Free Water Flush 150 Output: Urine 2500 350 Urethral (Ray) 2500 350 - Physical Exam Physical Exam Limitations: Positive for: Altered Mental Status, Other (intubated) Head: Positive for: Normocephalic Pupils: Positive for: Sluggish Extroacular Muscles: Positive for: EOMI Conjunctiva: Positive for: Normal Ears: Positive for: Normal Mouth: Positive for: Moist Mucous Membranes (ETT tube in place, yellow secretions, OG tube) Nose (External): Positive for: Other Neck: Positive for: Normal Range of Motion Respiratory/Chest: Positive for: Good Air Exchange, Rhonchi, Other (Mechanical ventilation). Negative for: Rales Cardiovascular: Positive for: Regular Rate and Rhythm. Negative for: Murmurs Abdomen: Positive for: Distention, Normal Bowel Sounds Upper Extremity: Positive for: Edema (trace pitting in upper extremities bl), NORMAL PULSES, Capillary Refill < 2s Lower Extremity: Positive for: NORMAL PULSES, Capillary Refill < 2 s. Negative for: Edema Neurological: Positive for: Other (Eyes open spotnaneously, non verbal, withdraws from pain) Skin: Positive for: Warm, Dry, Rashes Psychiatric: Positive for: Alert (intermittently), Lethargic (improved). Negative for: Oriented x 3, Agitated - Medications Active Medications: Active Medications Generic Name Dose Route Start Last Admin Trade Name Freq PRN Reason Stop Dose Admin Acetaminophen 650 mg 08/03/18 03:33 08/05/18 05:35 Tylenol 325mg Tab PO 650 mg Q6 PRN Administration Fever >100.4 F Acetaminophen 650 mg 08/12/18 15:50 08/12/18 16:41 Tylenol 650 Mg Supp OR 650 mg Q6 PRN Administration Temperature Albuterol/Ipratropium 3 ml 08/12/18 13:31 08/12/18 13:52 Duoneb 3 Mg/0.5 Mg (3 Ml) Ud INH 3 ml RQ6 PRN Administration Shortness of Breath Amlodipine Besylate 10 mg 08/03/18 09:00 08/13/18 09:46 Norvasc PO 10 mg DAILY LESLIE Administration Aspirin 325 mg 08/03/18 09:00 08/11/18 08:58 Ecotrin PO Not Given DAILY LESLIE Atorvastatin Calcium 10 mg 08/03/18 22:00 08/12/18 21:25 Lipitor PO 10 mg HS LESLIE Administration Carvedilol 25 mg 08/03/18 09:00 08/13/18 09:40 Coreg PO 25 mg BID LESLIE Administration Dextrose 0 ml 08/03/18 03:35 Dextrose 50% Inj IV STAT PRN Hypoglycemia Protocol Protocol Dextrose 0 gm 08/03/18 03:35 Glutose 15 PO ONCE PRN Hypoglycemia Protocol Protocol Divalproex Sodium 1,250 mg 08/03/18 22:00 08/03/18 21:56 Depakote Er(Once Daily) PO 1,250 mg HS LESLIE Administration Enoxaparin Sodium 40 mg 08/09/18 09:00 08/13/18 09:46 Lovenox SC 40 mg DAILY LESLIE Administration Protocol Escitalopram Oxalate 10 mg 08/03/18 22:00 08/12/18 21:41 Lexapro PO 10 mg HS LESLIE Administration Fluticasone Propionate 2 spr 08/03/18 09:00 08/12/18 08:32 Flonase ANIKA 2 spr DAILY LESLIE Administration Furosemide 40 mg 08/06/18 09:00 08/13/18 09:45 Lasix IVP 40 mg BID LESLIE Administration Glucagon 0 mg 08/03/18 03:35 Glucagen Diagnostic Kit IM STAT PRN Hypoglycemia Protocol Protocol Haloperidol Lactate 5 mg 08/12/18 13:03 08/13/18 09:45 Haldol IVP 5 mg Q8 PRN Administration Agitation Piperacillin Sod/Tazobactam 100 mls @ 100 mls/hr 08/03/18 11:00 08/13/18 09:48 Sod 3.375 gm/ Sodium Chloride IVPB 100 mls/hr Q8 LESLIE Administration Protocol Levetiracetam 1,000 mg/ Sodium 110 mls @ 110 mls/hr 08/06/18 15:00 08/13/18 03:01 Chloride IVPB 110 mls/hr Q12@0300,1500 LESLIE Administration Acyclovir 800 mg/ Sodium 250 mls @ 250 mls/hr 08/09/18 12:15 08/13/18 09:48 Chloride IVPB 250 mls/hr Q8 LESLIE Administration Protocol Propofol 1,000 mg in 100 mls @ 2.667 mls/hr 08/12/18 18:00 08/13/18 07:50 Diprivan IV 08/13/18 17:47 25 mcg/kg/min .Q24H LESLIE 13.336 mls/hr Titration Protocol 5 MCG/KG/MIN Ibuprofen 600 mg 08/03/18 13:30 08/12/18 21:28 Motrin Tab PO 600 mg Q6 PRN Administration Fever >100.4 F Insulin Detemir 20 units 08/09/18 22:00 08/12/18 21:25 Levemir SC 20 units HS LESLIE Administration Insulin Human Regular 0 units 08/07/18 11:30 08/12/18 21:21 Humulin R SC Not Given ACHS [facility] Protocol Lactulose 20 gm 08/08/18 17:16 08/09/18 11:03 Enulose PO 20 gm Q12 PRN Administration Constipation Levothyroxine Sodium 50 mcg 08/04/18 06:30 08/13/18 05:53 Synthroid PO 50 mcg DAILY@0630 LESLIE Administration Lorazepam 2 mg 08/12/18 14:15 08/13/18 07:50 Ativan IVP 2 mg Q6 PRN Administration Agitation Losartan Potassium 100 mg 08/10/18 09:00 08/13/18 09:44 Cozaar PO 100 mg DAILY LESLIE Administration Morphine Sulfate 4 mg 08/10/18 22:25 08/12/18 17:03 Morphine IVP 4 mg Q4H PRN Administration Agitation Multivitamins/Minerals 1 tab 08/03/18 09:00 08/11/18 09:03 Therapeutic-M Tab PO Not Given DAILY LESLIE Pantoprazole Sodium 20 mg 08/03/18 09:00 08/11/18 09:03 Protonix Ec Tab PO Not Given DAILY LESLIE Pantoprazole Sodium 40 mg 08/11/18 09:45 08/13/18 09:46 Protonix Inj IVP 40 mg DAILY LESLIE Administration Sitagliptin Phosphate 100 mg 08/03/18 22:00 08/12/18 21:25 Januvia PO 100 mg HS LESLIE Administration - Patient Studies Lab Studies: Microbiology Studies 08/11/18 17:02 Urine Culture - Final Urine,Ray No Growth (<1,000 CFU/ML) 08/11/18 18:30 Blood Culture - Preliminary Blood NO GROWTH AFTER 24 HOURS 08/11/18 18:20 Blood Culture - Preliminary Blood NO GROWTH AFTER 24 HOURS Lab Studies 08/13/18 08/13/18 08/13/18 Range/Units 06:04 05:30 04:50 WBC (4.8-10.8) K/uL RBC (3.80-5.20) Mil/uL Hgb (12.0-16.0) g/dL Hct (34.0-47.0) % MCV (81.0-99.0) fl MCH (27.0-31.0) pg MCHC (33.0-37.0) g/dL RDW (11.5-14.5) % Plt Count (130-400) K/uL pCO2 35 (35-45) mm/Hg pO2 101 H (80-100) mm/Hg HCO3 31.0 H (21-28) mmol/L ABG pH 7.55 H (7.35-7.45) ABG Total CO2 31.7 H (22-28) mmol/L ABG O2 Saturation 98.6 H (95-98) % ABG O2 Content 12.8 L (15-23) ML/dL ABG Base Excess 7.8 H (-2.0-3.0) mmol/L ABG Hemoglobin 9.3 L (11.7-17.4) g/dL ABG Carboxyhemoglobin 0.9 (0.5-1.5) % POC ABG HHb (Measured) 1.4 (0.0-5.0) % ABG Methemoglobin 1.2 (0.0-3.0) % ABG O2 Capacity 13.0 L (16-24) mL/dL Bridger Test Yes ABG Potassium (3.6-5.2) mmol/L A-a O2 Difference 212.0 mm/Hg Hgb O2 Saturation 96.5 (95.0-98.0) % Sodium 149 H (132-148) mmol/L Chloride 111 H (98-107) mmol/L Glucose (65-105) mg/dL Lactate (0.7-2.1) mmol/L Vent Mode A/c Mechanical Rate 14 FiO2 50.0 % Tidal Volume 450 PEEP 5 Potassium 3.4 L (3.6-5.0) MMOL/L Carbon Dioxide 27 (22-30) mmol/L Anion Gap 14 (10-20) BUN 36 H (7-17) mg/dl Creatinine 2.1 H (0.7-1.2) mg/dl Est GFR ( Amer) 29 Est GFR (Non-Af Amer) 24 POC Glucose (mg/dL) 143 H (65-110) mg/dL Random Glucose 146 H (65-105) mg/dL Calcium 9.6 (8.4-10.2) mg/dL Arterial Blood Potassium (3.6-5.2) mmol/L 08/13/18 08/12/18 08/12/18 Range/Units 04:50 21:20 17:50 WBC 9.0 (4.8-10.8) K/uL RBC 3.59 L (3.80-5.20) Mil/uL Hgb 9.3 L (12.0-16.0) g/dL Hct 28.9 L (34.0-47.0) % MCV 80.5 L (81.0-99.0) fl MCH 25.8 L (27.0-31.0) pg MCHC 32.1 L (33.0-37.0) g/dL RDW 15.7 H (11.5-14.5) % Plt Count 562 H (130-400) K/uL pCO2 70 H (35-45) mm/Hg pO2 47 L (80-100) mm/Hg HCO3 31.5 H (21-28) mmol/L ABG pH 7.33 L (7.35-7.45) ABG Total CO2 39.0 H (22-28) mmol/L ABG O2 Saturation 81.2 L (95-98) % ABG O2 Content (15-23) ML/dL ABG Base Excess 8.9 H (-2.0-3.0) mmol/L ABG Hemoglobin (11.7-17.4) g/dL ABG Carboxyhemoglobin (0.5-1.5) % POC ABG HHb (Measured) (0.0-5.0) % ABG Methemoglobin (0.0-3.0) % ABG O2 Capacity (16-24) mL/dL Bridger Test Yes ABG Potassium 3.9 (3.6-5.2) mmol/L A-a O2 Difference 436.0 mm/Hg Hgb O2 Saturation (95.0-98.0) % Sodium 150.0 H (132-148) mmol/L Chloride 107.0 (98-107) mmol/L Glucose 298 H (65-105) mg/dL Lactate 0.6 L (0.7-2.1) mmol/L Vent Mode High flow Mechanical Rate FiO2 80.0 % Tidal Volume PEEP Potassium (3.6-5.0) MMOL/L Carbon Dioxide (22-30) mmol/L Anion Gap (10-20) BUN (7-17) mg/dl Creatinine (0.7-1.2) mg/dl Est GFR ( Amer) Est GFR (Non-Af Amer) POC Glucose (mg/dL) 98 (65-110) mg/dL Random Glucose (65-105) mg/dL Calcium (8.4-10.2) mg/dL Arterial Blood Potassium 3.9 (3.6-5.2) mmol/L 08/12/18 08/12/18 Range/Units 16:58 11:14 WBC (4.8-10.8) K/uL RBC (3.80-5.20) Mil/uL Hgb (12.0-16.0) g/dL Hct (34.0-47.0) % MCV (81.0-99.0) fl MCH (27.0-31.0) pg MCHC (33.0-37.0) g/dL RDW (11.5-14.5) % Plt Count (130-400) K/uL pCO2 (35-45) mm/Hg pO2 (80-100) mm/Hg HCO3 (21-28) mmol/L ABG pH (7.35-7.45) ABG Total CO2 (22-28) mmol/L ABG O2 Saturation (95-98) % ABG O2 Content (15-23) ML/dL ABG Base Excess (-2.0-3.0) mmol/L ABG Hemoglobin (11.7-17.4) g/dL ABG Carboxyhemoglobin (0.5-1.5) % POC ABG HHb (Measured) (0.0-5.0) % ABG Methemoglobin (0.0-3.0) % ABG O2 Capacity (16-24) mL/dL Bridger Test ABG Potassium (3.6-5.2) mmol/L A-a O2 Difference mm/Hg Hgb O2 Saturation (95.0-98.0) % Sodium (132-148) mmol/L Chloride (98-107) mmol/L Glucose (65-105) mg/dL Lactate (0.7-2.1) mmol/L Vent Mode Mechanical Rate FiO2 % Tidal Volume PEEP Potassium (3.6-5.0) MMOL/L Carbon Dioxide (22-30) mmol/L Anion Gap (10-20) BUN (7-17) mg/dl Creatinine (0.7-1.2) mg/dl Est GFR ( Amer) Est GFR (Non-Af Amer) POC Glucose (mg/dL) 248 H 127 H (65-110) mg/dL Random Glucose (65-105) mg/dL Calcium (8.4-10.2) mg/dL Arterial Blood Potassium (3.6-5.2) mmol/L Laboratory Results - last 24 hr 08/12/18 08/12/18 08/12/18 11:14 16:58 17:50 WBC RBC Hgb Hct MCV MCH MCHC RDW Plt Count pCO2 70 H pO2 47 L HCO3 31.5 H ABG pH 7.33 L ABG Total CO2 39.0 H ABG O2 Saturation 81.2 L ABG O2 Content ABG Base Excess 8.9 H ABG Hemoglobin ABG Carboxyhemoglobin POC ABG HHb (Measured) ABG Methemoglobin ABG O2 Capacity Bridger Test Yes ABG Potassium 3.9 A-a O2 Difference 436.0 Hgb O2 Saturation Sodium 150.0 H Chloride 107.0 Glucose 298 H Lactate 0.6 L Vent Mode High flow Mechanical Rate FiO2 80.0 Tidal Volume PEEP Potassium Carbon Dioxide Anion Gap BUN Creatinine Est GFR ( Amer) Est GFR (Non-Af Amer) POC Glucose (mg/dL) 127 H 248 H Random Glucose Calcium Arterial Blood Potassium 3.9 08/12/18 08/13/18 08/13/18 21:20 04:50 04:50 WBC 9.0 RBC 3.59 L Hgb 9.3 L Hct 28.9 L MCV 80.5 L MCH 25.8 L MCHC 32.1 L RDW 15.7 H Plt Count 562 H pCO2 pO2 HCO3 ABG pH ABG Total CO2 ABG O2 Saturation ABG O2 Content ABG Base Excess ABG Hemoglobin ABG Carboxyhemoglobin POC ABG HHb (Measured) ABG Methemoglobin ABG O2 Capacity Bridger Test ABG Potassium A-a O2 Difference Hgb O2 Saturation Sodium 149 H Chloride 111 H Glucose Lactate Vent Mode Mechanical Rate FiO2 Tidal Volume PEEP Potassium 3.4 L Carbon Dioxide 27 Anion Gap 14 BUN 36 H Creatinine 2.1 H Est GFR ( Amer) 29 Est GFR (Non-Af Amer) 24 POC Glucose (mg/dL) 98 Random Glucose 146 H Calcium 9.6 Arterial Blood Potassium 08/13/18 08/13/18 05:30 06:04 WBC RBC Hgb Hct MCV MCH MCHC RDW Plt Count pCO2 35 pO2 101 H HCO3 31.0 H ABG pH 7.55 H ABG Total CO2 31.7 H ABG O2 Saturation 98.6 H ABG O2 Content 12.8 L ABG Base Excess 7.8 H ABG Hemoglobin 9.3 L ABG Carboxyhemoglobin 0.9 POC ABG HHb (Measured) 1.4 ABG Methemoglobin 1.2 ABG O2 Capacity 13.0 L Bridger Test Yes ABG Potassium A-a O2 Difference 212.0 Hgb O2 Saturation 96.5 Sodium Chloride Glucose Lactate Vent Mode A/c Mechanical Rate 14 FiO2 50.0 Tidal Volume 450 PEEP 5 Potassium Carbon Dioxide Anion Gap BUN Creatinine Est GFR ( Amer) Est GFR (Non-Af Amer) POC Glucose (mg/dL) 143 H Random Glucose Calcium Arterial Blood Potassium Fingerstick Blood Sugar Results: 98 Review of Systems - Review of Systems Systems not reviewed;Unavailable: Intubated Critical Care Progress Note - Nutrition Nutrition: Nutrition Category Date Time Status NPO Diet [DIET] Diets 08/04/18 Breakfast Active Assessment/Plan - Assessment and Plan (Free Text) Assessment: 62 yo F with pmhx of HTN, DM2, Hypothyroid, GERD, schizophrenia s/p fall in senior living, admitted for sepsis secondary to pneumonia, experienced an episode of bradycardia and code issac was called for PEA with ROSC after epinephrine x3. Plan: AMS - possibly 2/2 Toxic metabolic encephalopathy - Schizophrenia - Intubated - restarted psych home meds - Consider consulting Psych - Empiric IV Acyclovir - MRI: unable to obtain 2/2 body habitus Intubation -Mechanical ventilation -Reintubated on 08/12/2018 2/2 hypercarbia and hypoxemia Pneumonia -Tmax of 101.5 on 08/12/2018 -BCX neg x 24 hrs (x2) -UCX neg -Airbone isolation 2/2 hx of positive PPD, living in senior living -AFB negative x1 pending 2 -f/u sputum culture -Quant gold: indeterminate -Legionella: negative -CXR -Continue: IVABX: zosyn -s/p Vancomycin -ID: Dr. Castorena: continue IV ABX s/p Cardiac arrest -ROSC -EKG NSR -troponin: neg x4 Sepsis - Lactic acid: 1.9 from 3.2 on admission - BCX neg x 24 hrs (x2) - UCX neg - afebrile now DM 2 - SS Insulin medium coverage - Januvia - Metformin held Schizophrenia -Resume home meds Elevated Transaminitis -Improving - AST: 103 > 113 > 78 > 37 - ALT: 99 > 146 > 118 > 64 - Alk Phos: 148 > 191 > 184 > 162 - GGT: 72 Constipation - Lactulose Hypothyroid - Levothyroxine 50 mcg Seizure activity -Resolved -Dr. Keller: focal seizure on EEG; keppra 1000 mg BID; D/C Clozapine -CT head: No intracranial hemorrhage or mass effect. Cerebral atrophy and similar chronic microvascular ischemic changes. Paranasal sinus inflammatory changes-interval air-fluid level/sinusitis sphenoid sinus now noted. -Brain MRI: unable to be performed 2/2 body habitus. PT -Held: for out of bed trial when extubated Case dw Dr. Obdulio Naranjo MD PGY2 <Dillon Mak - Last Filed: 08/13/18 15:38> CCU Subjective - Physician Review Subjective (Free Text): Attestation: Patient seen and examined at the bedside with Resident Dr. Justus Naranjo; and I agree with his outline of plans and management documented above and below, reflecting my review of all applicable clinical data, and participation in the care of the patient throughout the day in ICU; today, August 13, 2018.
[2018-08-13] MEDS: Insulin Regular 100 units/ml SC SCH ×3 (11:21→21:12)
--- NOTE | 2018-08-13 15:36 | RAD ---
Date of service: 08/13/2018 PROCEDURE: CHEST RADIOGRAPH, 1 VIEW HISTORY: intubated COMPARISON: 08/13/2018 FINDINGS: LUNGS: Clear. PLEURA: No pneumothorax or pleural fluid seen. CARDIOVASCULAR: Normal heart size. ET tube positioned with tip approximately 4.6 cm above tracheal rojas. Nasogastric tube extends to upper abdomen. OSSEOUS STRUCTURES: No significant abnormalities. VISUALIZED UPPER ABDOMEN: Normal. OTHER FINDINGS: None. IMPRESSION: ET tube tip approximately 4.6 cm above the tracheal rojas.
--- NOTE | 2018-08-13 17:18 | CP.PCM.PN ---
Subjective - Date & Time of Evaluation Date of Evaluation: 08/13/18 Time of Evaluation: 08:00 - Subjective Subjective: pt intubated sedated arousable no acute distress hd stable Objective - Vital Signs/Intake and Output Vital Signs (last 24 hours): Temp Pulse Resp BP Pulse Ox 97.3 F L 54 L 20 177/81 H 100 08/13/18 16:00 08/13/18 16:00 08/13/18 16:00 08/13/18 17:02 08/13/18 16:00 Intake and Output: 08/13/18 08/13/18 06:59 18:59 Intake Total 555 1594 Output Total 350 Balance 205 1594 - Medications Medications: Current Medications Acetaminophen (Tylenol 325mg Tab) 650 mg PO Q6 PRN PRN Reason: Fever >100.4 F Last Admin: 08/05/18 05:35 Dose: 650 mg Acetaminophen (Tylenol 650 Mg Supp) 650 mg NE Q6 PRN PRN Reason: Temperature Last Admin: 08/12/18 16:41 Dose: 650 mg Albuterol/Ipratropium (Duoneb 3 Mg/0.5 Mg (3 Ml) Ud) 3 ml INH RQ6 PRN PRN Reason: Shortness of Breath Last Admin: 08/12/18 13:52 Dose: 3 ml Amlodipine Besylate (Norvasc) 10 mg PO DAILY [facility] Last Admin: 08/13/18 09:46 Dose: 10 mg Aspirin (Ecotrin) 325 mg PO DAILY [facility] Last Admin: 08/11/18 08:58 Dose: Not Given Atorvastatin Calcium (Lipitor) 10 mg PO HS [facility] Last Admin: 08/12/18 21:25 Dose: 10 mg Carvedilol (Coreg) 12.5 mg PO Q12 [facility] Dextrose (Dextrose 50% Inj) 0 ml IV STAT PRN; Protocol PRN Reason: Hypoglycemia Protocol Dextrose (Glutose 15) 0 gm PO ONCE PRN; Protocol PRN Reason: Hypoglycemia Protocol Divalproex Sodium (Depakote Er(Once Daily)) 1,250 mg PO HS [facility] Last Admin: 08/03/18 21:56 Dose: 1,250 mg Enoxaparin Sodium (Lovenox) 40 mg SC DAILY [facility]; Protocol Last Admin: 08/13/18 09:46 Dose: 40 mg Escitalopram Oxalate (Lexapro) 10 mg PO [facility] Last Admin: 08/12/18 21:41 Dose: 10 mg Fluticasone Propionate (Flonase) 2 spr ANIKA DAILY [facility] Last Admin: 08/13/18 11:20 Dose: 2 spr Furosemide (Lasix) 40 mg IVP BID [facility] Last Admin: 08/13/18 17:02 Dose: 40 mg Glucagon (Glucagen Diagnostic Kit) 0 mg IM STAT PRN; Protocol PRN Reason: Hypoglycemia Protocol Haloperidol Lactate (Haldol) 5 mg IVP Q8 PRN PRN Reason: Agitation Last Admin: 08/13/18 09:45 Dose: 5 mg Piperacillin Sod/Tazobactam (Sod 3.375 gm/ Sodium Chloride) 100 mls @ 100 mls/hr IVPB Q8 [facility]; Protocol Last Admin: 08/13/18 16:56 Dose: 100 mls/hr Levetiracetam 1,000 mg/ Sodium (Chloride) 110 mls @ 110 mls/hr IVPB Q12@0300,1500 LESLIE Last Admin: 08/13/18 03:01 Dose: 110 mls/hr Acyclovir 800 mg/ Sodium (Chloride) 250 mls @ 250 mls/hr IVPB Q8 [facility]; Protocol Last Admin: 08/13/18 17:04 Dose: 250 mls/hr Propofol (Diprivan) 1,000 mg in 100 mls @ 2.667 mls/hr IV .Q24H LESLIE; Protocol Stop: 08/13/18 17:47 Last Admin: 08/13/18 17:08 Dose: 25 mcg/kg/min, 13.336 mls/hr Ibuprofen (Motrin Tab) 600 mg PO Q6 PRN PRN Reason: Fever >100.4 F Last Admin: 08/12/18 21:28 Dose: 600 mg Insulin Detemir (Levemir) 20 units SC [facility] Last Admin: 08/12/18 21:25 Dose: 20 units Insulin Human Regular (Humulin R) 0 units SC [facility]; Protocol Last Admin: 08/13/18 16:53 Dose: 2 units Lactulose (Enulose) 20 gm PO Q12 PRN PRN Reason: Constipation Last Admin: 08/09/18 11:03 Dose: 20 gm Levothyroxine Sodium (Synthroid) 50 mcg PO DAILY@0630 [facility] Last Admin: 08/13/18 05:53 Dose: 50 mcg Lorazepam (Ativan) 2 mg IVP Q6 PRN PRN Reason: Agitation Last Admin: 08/13/18 07:50 Dose: 2 mg Losartan Potassium (Cozaar) 100 mg PO DAILY [facility] Last Admin: 08/13/18 09:44 Dose: 100 mg Morphine Sulfate (Morphine) 4 mg IVP Q4H PRN PRN Reason: Agitation Last Admin: 08/13/18 11:25 Dose: 4 mg Multivitamins/Minerals (Therapeutic-M Tab) 1 tab PO DAILY [facility] Last Admin: 08/11/18 09:03 Dose: Not Given Pantoprazole Sodium (Protonix Ec Tab) 20 mg PO DAILY [facility] Last Admin: 08/11/18 09:03 Dose: Not Given Pantoprazole Sodium (Protonix Inj) 40 mg IVP DAILY [facility] Last Admin: 08/13/18 09:46 Dose: 40 mg Sitagliptin Phosphate (Januvia) 100 mg PO HS [facility] Last Admin: 08/12/18 21:25 Dose: 100 mg - Labs Labs: 08/13/18 04:50 08/13/18 04:50 PT 12.2 Seconds (9.8-13.1) 08/04/18 00:30 INR 1.1 08/04/18 00:30 APTT 31.5 Seconds (25.6-37.1) 08/02/18 22:20 - Constitutional Appears: Non-toxic, No Acute Distress - Head Exam Head Exam: ATRAUMATIC, NORMOCEPHALIC - Eye Exam Eye Exam: EOMI, Normal appearance - Respiratory Exam Respiratory Exam: Clear to Ausculation Bilateral, NORMAL BREATHING PATTERN - Cardiovascular Exam Cardiovascular Exam: RRR, +S1 - GI/Abdominal Exam GI & Abdominal Exam: Soft, Normal Bowel Sounds - Extremities Exam Extremities Exam: Normal Capillary Refill, Normal Inspection - Back Exam Back Exam: absent: CVA tenderness (L), CVA tenderness (R) - Neurological Exam Neurological Exam: absent: Alert, Awake - Psychiatric Exam Psychiatric exam: absent: Normal Affect, Normal Mood - Skin Skin Exam: Dry, Warm Assessment and Plan - Assessment and Plan (Free Text) Plan: 62 yo female from a skilled nursing, with hx of DM II, schizophrenia and HTN; initially admitted for sepsis and pneumonia. Initial labs were significant for leukocytosis with bandemia; CXR showed atelectasis vs infiltrate and pt was started on vancomycin, zosyn and zithromax IV. During the admission, pt was found to be bradycardic and became unresponsive. Code Blue was called for suspected Pulseless Electrical Activity; compressions done ,was achieved after 3 rounds of epinephrine. She was then transferred to ICU. When weaned off sedation, mental status changes appreciated per family when compared to her baseline. Neurology was consulted and EEG was ordered, which showed left frontal focal seizures. MRI cannot be done due to body habitus. s/p Cardio/Respiratory Arrest -s/p Code Blue ( 3 doses of epinephrine) -Reintubated, sedated. -EKG wnl and troponin neg x2 Left frontal focal seizures -As seen on EEG; as per neuro due to pts infection and antipsychotic lowered seizure threshold; appear to have resolved now - Keppra 1000 mg Q12 - Clozapine discontinued - Neuro on board AMS prob Encephalopathy due to Sepsis Dr Keller rec MRI of Brain to r/o Encephalitis - unable to do due to body habitus ( unable to fit into MRI) empirically started on IV Acyclovir as discussed with Dr Castorena, cont Psych consult? 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, QF gold Indeterminate Sepsis sec to PNA (POA) -Leukocytosis with bandemia -Continue with IV antibiotics -ID on board Anasarca -Likely secondary to fluid overloaded; improving -IV lasix given -Strict I&Os -Renal function stable Hypothyrodism -Chronic, uncontrolled -Levothyroxine 50mcg daily - TSH sl low - dose of Levothyroxine decreased DM -Chronic -Metformin on hold - start Levemir -Insulin coverage scale and hypoglycemia protocol -Hypoglycemia protocol HTN uncontrolled - cont Lasix, Amlodipine, Coreg - increase Losartan to 100 mg daily Schizophrenia -Chronic -Home meds held for now -Depakote levels normal DVT prophylaxis -Lovenox SQ
[2018-08-13] MEDS: Insulin Detemir 100 Units/ml Inj SC SCH (21:11)
[2018-08-14] MEDS: Propofol 10 mg/ml 1,000 MG/100 ML VIAL IV SCH ×3 (00:22→12:21)
[2018-08-14] MEDS: Piperacillin/Tazobact 3.375 GM in Sodium Chloride 0.9% 100 ML IVPB SCH ×3 (00:31→16:01)
[2018-08-14] MEDS: levETIRAcetam 1,000 MG in Sodium Chloride 0.9% 100 ML IVPB SCH ×2 (03:16→15:45)
[2018-08-14 05:13] LABS: ABG ALLEN TEST YES; ARTERIAL BLOOD GAS HCO3 30.5 mmol/L (21-28); ARTERIAL BLOOD GAS HEMOGLOBIN 9.9 g/dL (11.7-17.4); ARTERIAL BLOOD GAS O2 CAPACITY 13.9 mL/dL (16-24); ARTERIAL BLOOD GAS O2 CONTENT 13.7 ML/dL (15-23); ARTERIAL BLOOD GAS O2 SAT 98.8 % (95-98); ARTERIAL BLOOD GAS PCO2 46 mm/Hg (35-45); ARTERIAL BLOOD GAS PH 7.45 (7.35-7.45); ARTERIAL BLOOD GAS PO2 121 mm/Hg (80-100); ARTERIAL BLOOD GAS TCO2 33.4 mmol/L (22-28)
[2018-08-14 05:24] LABS: HEMOGLOBIN 9.9 g/dL (12.0-16.0); MEAN CORPUSCULAR HEMOGLOBIN 26.2 pg (27.0-31.0); MEAN CORPUSCULAR HGB CONC 32.7 g/dL (33.0-37.0); RBC 3.79 Mil/uL (3.80-5.20); RED CELL DISTRIBUTION WIDTH 15.3 % (11.5-14.5); WHITE BLOOD COUNT 9.8 K/uL (4.8-10.8)
[2018-08-14 05:33] LABS: CALCIUM 9.7 mg/dL (8.4-10.2)
[2018-08-14] MEDS: Levothyroxine 50 MCG TAB PO SCH (05:37)
--- NOTE | 2018-08-14 07:12 | CP.PCM.PN ---
Subjective - Date & Time of Evaluation Date of Evaluation: 08/14/18 Time of Evaluation: 09:00 - Subjective Subjective: intubated sedated hd stable psych consult Objective - Vital Signs/Intake and Output Vital Signs (last 24 hours): Temp Pulse Resp BP Pulse Ox 98.3 F 63 23 167/65 H 100 08/14/18 04:00 08/14/18 06:00 08/14/18 06:00 08/14/18 06:00 08/14/18 06:00 Intake and Output: 08/14/18 08/14/18 06:59 18:59 Intake Total 1720 Output Total 1000 Balance 720 - Medications Medications: Current Medications Acetaminophen (Tylenol 325mg Tab) 650 mg PO Q6 PRN PRN Reason: Fever >100.4 F Last Admin: 08/05/18 05:35 Dose: 650 mg Acetaminophen (Tylenol 650 Mg Supp) 650 mg SC Q6 PRN PRN Reason: Temperature Last Admin: 08/12/18 16:41 Dose: 650 mg Albuterol/Ipratropium (Duoneb 3 Mg/0.5 Mg (3 Ml) Ud) 3 ml INH RQ6 PRN PRN Reason: Shortness of Breath Last Admin: 08/12/18 13:52 Dose: 3 ml Amlodipine Besylate (Norvasc) 10 mg PO DAILY [facility] Last Admin: 08/13/18 09:46 Dose: 10 mg Aspirin (Ecotrin) 325 mg PO DAILY [facility] Last Admin: 08/11/18 08:58 Dose: Not Given Atorvastatin Calcium (Lipitor) 10 mg PO HS [facility] Last Admin: 08/13/18 21:10 Dose: 10 mg Carvedilol (Coreg) 12.5 mg PO Q12 [facility] Last Admin: 08/13/18 21:35 Dose: 12.5 mg Dextrose (Dextrose 50% Inj) 0 ml IV STAT PRN; Protocol PRN Reason: Hypoglycemia Protocol Dextrose (Glutose 15) 0 gm PO ONCE PRN; Protocol PRN Reason: Hypoglycemia Protocol Divalproex Sodium (Depakote Er(Once Daily)) 1,250 mg PO HS [facility] Last Admin: 08/03/18 21:56 Dose: 1,250 mg Enoxaparin Sodium (Lovenox) 40 mg SC DAILY [facility]; Protocol Last Admin: 08/13/18 09:46 Dose: 40 mg Escitalopram Oxalate (Lexapro) 10 mg PO HS [facility] Last Admin: 08/13/18 21:10 Dose: 10 mg Fluticasone Propionate (Flonase) 2 spr ANIKA DAILY [facility] Last Admin: 08/13/18 11:20 Dose: 2 spr Furosemide (Lasix) 40 mg IVP BID [facility] Last Admin: 08/13/18 17:02 Dose: 40 mg Glucagon (Glucagen Diagnostic Kit) 0 mg IM STAT PRN; Protocol PRN Reason: Hypoglycemia Protocol Haloperidol Lactate (Haldol) 5 mg IVP Q8 PRN PRN Reason: Agitation Last Admin: 08/13/18 09:45 Dose: 5 mg Piperacillin Sod/Tazobactam (Sod 3.375 gm/ Sodium Chloride) 100 mls @ 100 mls/hr IVPB Q8 [facility]; Protocol Last Admin: 08/14/18 00:31 Dose: 100 mls/hr Levetiracetam 1,000 mg/ Sodium (Chloride) 110 mls @ 110 mls/hr IVPB Q12@0300,1500 [facility] Last Admin: 08/14/18 03:16 Dose: 110 mls/hr Acyclovir 800 mg/ Sodium (Chloride) 250 mls @ 250 mls/hr IVPB Q8 [facility]; Protocol Last Admin: 08/14/18 00:32 Dose: 250 mls/hr Propofol (Diprivan) 1,000 mg in 100 mls @ 16.003 mls/hr IV .Q6H15M [facility]; Pro tocol Stop: 08/14/18 23:13 Last Admin: 08/14/18 06:10 Dose: 30 mcg/kg/min, 16.003 mls/hr Ibuprofen (Motrin Tab) 600 mg PO Q6 PRN PRN Reason: Fever >100.4 F Last Admin: 08/12/18 21:28 Dose: 600 mg Insulin Detemir (Levemir) [address] [facility] Last Admin: 08/13/18 21:11 Dose: 20 units Insulin Human Regular (Humulin R) 0 units SC ACHS [facility]; Protocol Last Admin: 08/13/18 21:12 Dose: Not Given Lactulose (Enulose) 20 gm PO Q12 PRN PRN Reason: Constipation Last Admin: 08/09/18 11:03 Dose: 20 gm Levothyroxine Sodium (Synthroid) 50 mcg PO DAILY@0630 [facility] Last Admin: 08/14/18 05:37 Dose: 50 mcg Lorazepam (Ativan) 2 mg IVP Q6 PRN PRN Reason: Agitation Last Admin: 08/14/18 04:09 Dose: 2 mg Losartan Potassium (Cozaar) 100 mg PO DAILY [facility] Last Admin: 08/13/18 09:44 Dose: 100 mg Morphine Sulfate (Morphine) 4 mg IVP Q4H PRN PRN Reason: Agitation Last Admin: 08/13/18 11:25 Dose: 4 mg Multivitamins/Minerals (Therapeutic-M Tab) 1 tab PO DAILY [facility] Last Admin: 08/11/18 09:03 Dose: Not Given Pantoprazole Sodium (Protonix Ec Tab) 20 mg PO DAILY [facility] Last Admin: 08/11/18 09:03 Dose: Not Given Pantoprazole Sodium (Protonix Inj) 40 mg IVP DAILY [facility] Last Admin: 08/13/18 09:46 Dose: 40 mg Sitagliptin Phosphate (Januvia) 100 mg PO HS [facility] Last Admin: 08/13/18 21:10 Dose: 100 mg - Labs Labs: 08/14/18 04:35 08/14/18 04:35 PT 12.2 Seconds (9.8-13.1) 08/04/18 00:30 INR 1.1 08/04/18 00:30 APTT 31.5 Seconds (25.6-37.1) 08/02/18 22:20 - Constitutional Appears: Non-toxic, No Acute Distress - Head Exam Head Exam: ATRAUMATIC, NORMOCEPHALIC - Eye Exam Eye Exam: EOMI, Normal appearance - ENT Exam ENT Exam: Mucous Membranes Moist - Respiratory Exam Respiratory Exam: Clear to Ausculation Bilateral, NORMAL BREATHING PATTERN - Cardiovascular Exam Cardiovascular Exam: RRR, +S1, +S2 - GI/Abdominal Exam GI & Abdominal Exam: Soft, Normal Bowel Sounds - Extremities Exam Extremities Exam: Normal Capillary Refill, Normal Inspection - Back Exam Back Exam: absent: CVA tenderness (L), CVA tenderness (R) - Neurological Exam Neurological Exam: absent: Alert, Awake - Psychiatric Exam Psychiatric exam: absent: Normal Affect, Normal Mood - Skin Skin Exam: Dry, Warm Assessment and Plan - Assessment and Plan (Free Text) Plan: 62 [facility] [place] [facility], with hx of DM II, schizophrenia and HTN; initia lly admitted for sepsis and pneumonia. Initial labs were significant for leukocytosis with bandemia; CXR showed atelectasis vs infiltrate and pt was started on vancomycin, zosyn and zithromax IV. During the admission, pt was found to be bradycardic and became unresponsive. Code Blue was called for suspected Pulseless Electrical Activity; compressions done ,was achieved after 3 rounds of epinephrine. She was then transferred to ICU. When weaned off sedation, mental status changes appreciated per family when compared to her baseline. Neurology was consulted and EEG was ordered, which showed left frontal focal seizures. MRI cannot be done due to body habitus. s/p Cardio/Respiratory Arrest -s/p Code Blue ( 3 doses of epinephrine) -Reintubated, sedated. -EKG wnl and troponin neg x2 Left frontal focal seizures -As seen on EEG; as per neuro due to pts infection and antipsychotic lowered seizure threshold; appear to have resolved now - Keppra 1000 mg Q12 - Clozapine discontinued - Neuro on board AMS prob Encephalopathy due to Sepsis Dr Keller rec MRI of Brain to r/o Encephalitis - unable to do due to body habitus ( unable to fit into MRI) empirically started on IV Acyclovir as discussed with Dr Castorena, cont Psych consult? 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, QF gold Indeterminate Sepsis sec to PNA (POA) -Leukocytosis with bandemia -Continue with IV antibiotics -ID on board Anasarca -Likely secondary to fluid overloaded; improving -IV lasix given -Strict I&Os -Renal function stable Hypothyrodism -Chronic, uncontrolled -Levothyroxine 50mcg daily - TSH sl low - dose of Levothyroxine decreased DM -Chronic -Metformin on hold - start Levemir -Insulin coverage scale and hypoglycemia protocol -Hypoglycemia protocol HTN uncontrolled - cont Lasix, Amlodipine, Coreg - increase Losartan to 100 mg daily Schizophrenia -Chronic -Home meds held for now -Depakote levels normal DVT prophylaxis -Lovenox SQ
[2018-08-14] MEDS: Insulin Regular 100 units/ml SC SCH ×2 (07:38→07:39)
[2018-08-14] MEDS: Enoxaparin 40 mg Syringe SC SCH (08:05)
[2018-08-14] MEDS ORDERED: Insulin Lispro (humaLOG) 100 Units/ml Inj SC PRN (08:18)
--- NOTE | 2018-08-14 08:23 | CP.CCUPN ---
<Zi Naranjo - Last Filed: 08/14/18 16:22> CCU Subjective - Physician Review Subjective (Free Text): 08/14/18 16:22 Pt was seen and examined at bedside. Intubated. Afebrile. CCU Objective - Vital Signs / Intake & Output Vital Signs (Last 4 hours): Vital Signs Pulse Resp BP Pulse Ox 08/14/18 08:05 180/80 H 08/14/18 08:04 180/80 H 08/14/18 08:03 180/80 H 08/14/18 06:00 63 23 167/65 H 100 Intake and Output (Last 8hrs): Intake & Output 08/13/18 08/14/18 08/14/18 22:59 06:59 14:59 Intake Total 1326 1338 Output Total 1000 1000 Balance 326 338 Intake: IV 316 228 Intake, Piggyback 450 450 Tube Feeding 260 360 Free Water Flush 300 300 Output: Urine 1000 1000 Urethral (Ray) 1000 1000 - Physical Exam Physical Exam Limitations: Positive for: Other (intubated) Head: Positive for: Normocephalic Pupils: Positive for: Sluggish Extroacular Muscles: Positive for: EOMI Conjunctiva: Positive for: Normal Ears: Positive for: Normal Mouth: Positive for: Moist Mucous Membranes (ETT tube in place, yellow secretions, OG tube) Nose (External): Positive for: Other Neck: Positive for: Normal Range of Motion Respiratory/Chest: Positive for: Good Air Exchange, Rhonchi, Other (Mechanical ventilation). Negative for: Rales Cardiovascular: Positive for: Regular Rate and Rhythm. Negative for: Murmurs Abdomen: Positive for: Distention, Normal Bowel Sounds Upper Extremity: Positive for: Edema (trace pitting in upper extremities bl), NORMAL PULSES, Capillary Refill < 2s Lower Extremity: Positive for: NORMAL PULSES, Capillary Refill < 2 s. Negative for: Edema Neurological: Positive for: Other (Eyes open spotnaneously, non verbal, withdraws from pain) Skin: Positive for: Warm, Dry, Rashes Psychiatric: Positive for: Alert (intermittently), Lethargic (improved). Negative for: Oriented x 3, Agitated - Medications Active Medications: Active Medications Generic Name Dose Route Start Last Admin Trade Name Freq PRN Reason Stop Dose Admin Acetaminophen 650 mg 08/03/18 03:33 08/05/18 05:35 Tylenol 325mg Tab PO 650 mg Q6 PRN Administration Fever >100.4 F Acetaminophen 650 mg 08/12/18 15:50 08/12/18 16:41 Tylenol 650 Mg Supp VT 650 mg Q6 PRN Administration Temperature Albuterol/Ipratropium 3 ml 08/12/18 13:31 08/12/18 13:52 Duoneb 3 Mg/0.5 Mg (3 Ml) Ud INH 3 ml RQ6 PRN Administration Shortness of Breath Amlodipine Besylate 10 mg 08/03/18 09:00 08/14/18 08:05 Norvasc PO 10 mg DAILY [facility] Administration Aspirin 325 mg 08/03/18 09:00 08/11/18 08:58 Ecotrin PO Not Given DAILY [facility] Atorvastatin Calcium 10 mg 08/03/18 22:00 08/13/18 21:10 Lipitor PO 10 mg HS [facility] Administration Carvedilol 12.5 mg 08/13/18 21:00 08/14/18 08:03 Coreg PO 12.5 mg Q12 [facility] Administration Dextrose 0 ml 08/03/18 03:35 Dextrose 50% Inj IV STAT PRN Hypoglycemia Protocol Protocol Dextrose 0 gm 08/03/18 03:35 Glutose 15 PO ONCE PRN Hypoglycemia Protocol Protocol Divalproex Sodium 1,250 mg 08/03/18 22:00 08/03/18 21:56 Depakote Er(Once Daily) PO 1,250 mg HS [facility] Administration Enoxaparin Sodium 40 mg 08/09/18 09:00 08/14/18 08:05 Lovenox SC 40 mg DAILY [facility] Administration Protocol Escitalopram Oxalate 10 mg 08/03/18 22:00 08/13/18 21:10 Lexapro PO 10 mg HS [facility] Administration Fluticasone Propionate 2 spr 08/03/18 09:00 08/14/18 08:04 Flonase ANIKA Not Given DAILY [facility] Furosemide 40 mg 08/06/18 09:00 08/14/18 08:04 Lasix IVP 40 mg BID [facility] Administration Glucagon 0 mg 08/03/18 03:35 Glucagen Diagnostic Kit IM STAT PRN Hypoglycemia Protocol Protocol Haloperidol Lactate 5 mg 08/12/18 13:03 08/13/18 09:45 Haldol IVP 5 mg Q8 PRN Administration Agitation Piperacillin Sod/Tazobactam 100 mls @ 100 mls/hr 08/03/18 11:00 08/14/18 08:06 Sod 3.375 gm/ Sodium Chloride IVPB 100 mls/hr Q8 [facility] Administration Protocol Levetiracetam 1,000 mg/ Sodium 110 mls @ 110 mls/hr 08/06/18 15:00 08/14/18 03:16 Chloride IVPB 110 mls/hr Q12@0300,1500 [facility] Administration Acyclovir 800 mg/ Sodium 250 mls @ 250 mls/hr 08/09/18 12:15 08/14/18 08:07 Chloride IVPB 250 mls/hr Q8 [facility] Administration Protocol Propofol 1,000 mg in 100 mls @ 16.003 mls/hr 08/13/18 23:15 08/14/18 06:10 Diprivan IV 08/14/18 23:13 30 mcg/kg/min .Q6H15M [facility] 16.003 mls/hr Administration Protocol 30 MCG/KG/MIN Ibuprofen 600 mg 08/03/18 13:30 08/12/18 21:28 Motrin Tab PO 600 mg Q6 PRN Administration Fever >100.4 F Insulin Detemir 20 units 08/09/18 22:00 08/13/18 21:11 Levemir SC 20 units HS [facility] Administration Insulin Human Lispro 0 units 08/14/18 08:18 Humalog SC PRN PRN Other Protocol Lactulose 20 gm 08/08/18 17:16 08/09/18 11:03 Enulose PO 20 gm Q12 PRN Administration Constipation Levothyroxine Sodium 50 mcg 08/04/18 06:30 08/14/18 05:37 Synthroid PO 50 mcg DAILY@0630 [facility] Administration Lorazepam 2 mg 08/12/18 14:15 08/14/18 04:09 Ativan IVP 2 mg Q6 PRN Administration Agitation Losartan Potassium 100 mg 08/10/18 09:00 08/14/18 08:04 Cozaar PO 100 mg DAILY [facility] Administration Morphine Sulfate 4 mg 08/10/18 22:25 08/14/18 07:48 Morphine IVP 4 mg Q4H PRN Administration Agitation Multivitamins/Minerals 1 tab 08/03/18 09:00 08/11/18 09:03 Therapeutic-M Tab PO Not Given DAILY [facility] Pantoprazole Sodium 20 mg 10/29/18 09:00 08/11/18 09:03 Protonix Ec Tab PO Not Given DAILY [facility] Pantoprazole Sodium 40 mg 08/11/18 09:45 08/14/18 08:05 Protonix Inj IVP 40 mg DAILY [facility] Administration Sitagliptin Phosphate 100 mg 08/03/18 22:00 08/13/18 21:10 Januvia PO 100 mg HS [facility] Administration - Patient Studies Lab Studies: Microbiology Studies 08/11/18 18:30 Blood Culture - Preliminary Blood NO GROWTH AFTER 48 HOURS 08/11/18 18:20 Blood Culture - Preliminary Blood NO GROWTH AFTER 48 HOURS 08/11/18 17:02 Urine Culture - Final Urine,Ray No Growth (<1,000 CFU/ML) Lab Studies 08/14/18 08/14/18 08/14/18 Range/Units 06:08 04:35 04:35 WBC 9.8 (4.8-10.8) K/uL RBC 3.79 L (3.80-5.20) Mil/uL Hgb 9.9 L (12.0-16.0) g/dL Hct 30.3 L (34.0-47.0) % MCV 80.0 L (81.0-99.0) fl MCH 26.2 L (27.0-31.0) pg MCHC 32.7 L (33.0-37.0) g/dL RDW 15.3 H (11.5-14.5) % Plt Count 575 H (130-400) K/uL pCO2 (35-45) mm/Hg pO2 (80-100) mm/Hg HCO3 (21-28) mmol/L ABG pH (7.35-7.45) ABG Total CO2 (22-28) mmol/L ABG O2 Saturation (95-98) % ABG O2 Content (15-23) ML/dL ABG Base Excess (-2.0-3.0) mmol/L ABG Hemoglobin (11.7-17.4) g/dL ABG Carboxyhemoglobin (0.5-1.5) % POC ABG HHb (Measured) (0.0-5.0) % ABG Methemoglobin (0.0-3.0) % ABG O2 Capacity (16-24) mL/dL Bridger Test A-a O2 Difference mm/Hg Hgb O2 Saturation (95.0-98.0) % Vent Mode Mechanical Rate FiO2 % Tidal Volume PEEP Sodium 149 H (132-148) mmol/l Potassium 3.3 L (3.6-5.0) MMOL/L Chloride 110 H (98-107) mmol/L Carbon Dioxide 30 (22-30) mmol/L Anion Gap 12 (10-20) BUN 36 H (7-17) mg/dl Creatinine 1.4 H (0.7-1.2) mg/dl Est GFR ( Amer) 46 Est GFR (Non-Af Amer) 38 POC Glucose (mg/dL) 251 H (65-110) mg/dL Random Glucose 259 H (65-105) mg/dL Calcium 9.7 (8.4-10.2) mg/dL 08/14/18 08/13/18 08/13/18 Range/Units 04:00 20:57 16:31 WBC (4.8-10.8) K/uL RBC (3.80-5.20) Mil/uL Hgb (12.0-16.0) g/dL Hct (34.0-47.0) % MCV (81.0-99.0) fl MCH (27.0-31.0) pg MCHC (33.0-37.0) g/dL RDW (11.5-14.5) % Plt Count (130-400) K/uL pCO2 46 H (35-45) mm/Hg pO2 121 H (80-100) mm/Hg HCO3 30.5 H (21-28) mmol/L ABG pH 7.45 (7.35-7.45) ABG Total CO2 33.4 H (22-28) mmol/L ABG O2 Saturation 98.8 H (95-98) % ABG O2 Content 13.7 L (15-23) ML/dL ABG Base Excess 7.1 H (-2.0-3.0) mmol/L ABG Hemoglobin 9.9 L (11.7-17.4) g/dL ABG Carboxyhemoglobin 1.0 (0.5-1.5) % POC ABG HHb (Measured) 1.2 (0.0-5.0) % ABG Methemoglobin 0.7 (0.0-3.0) % ABG O2 Capacity 13.9 L (16-24) mL/dL Bridger Test Yes A-a O2 Difference 178.0 mm/Hg Hgb O2 Saturation 97.1 (95.0-98.0) % Vent Mode A/c Mechanical Rate 14 FiO2 50.0 % Tidal Volume 450 PEEP 5 Sodium (132-148) mmol/l Potassium (3.6-5.0) MMOL/L Chloride (98-107) mmol/L Carbon Dioxide (22-30) mmol/L Anion Gap (10-20) BUN (7-17) mg/dl Creatinine (0.7-1.2) mg/dl Est GFR ( Amer) Est GFR (Non-Af Amer) POC Glucose (mg/dL) 178 H 191 H (65-110) mg/dL Random Glucose (65-105) mg/dL Calcium (8.4-10.2) mg/dL 08/13/18 Range/Units 11:13 WBC (4.8-10.8) K/uL RBC (3.80-5.20) Mil/uL Hgb (12.0-16.0) g/dL Hct (34.0-47.0) % MCV (81.0-99.0) fl MCH (27.0-31.0) pg MCHC (33.0-37.0) g/dL RDW (11.5-14.5) % Plt Count (130-400) K/uL pCO2 (35-45) mm/Hg pO2 (80-100) mm/Hg HCO3 (21-28) mmol/L ABG pH (7.35-7.45) ABG Total CO2 (22-28) mmol/L ABG O2 Saturation (95-98) % ABG O2 Content (15-23) ML/dL ABG Base Excess (-2.0-3.0) mmol/L ABG Hemoglobin (11.7-17.4) g/dL ABG Carboxyhemoglobin (0.5-1.5) % POC ABG HHb (Measured) (0.0-5.0) % ABG Methemoglobin (0.0-3.0) % ABG O2 Capacity (16-24) mL/dL Bridger Test A-a O2 Difference mm/Hg Hgb O2 Saturation (95.0-98.0) % Vent Mode Mechanical Rate FiO2 % Tidal Volume PEEP Sodium (132-148) mmol/l Potassium (3.6-5.0) MMOL/L Chloride (98-107) mmol/L Carbon Dioxide (22-30) mmol/L Anion Gap (10-20) BUN (7-17) mg/dl Creatinine (0.7-1.2) mg/dl Est GFR ( Amer) Est GFR (Non-Af Amer) POC Glucose (mg/dL) 223 H (65-110) mg/dL Random Glucose (65-105) mg/dL Calcium (8.4-10.2) mg/dL Laboratory Results - last 24 hr 08/13/18 08/13/18 08/13/18 11:13 16:31 20:57 WBC RBC Hgb Hct MCV MCH MCHC RDW Plt Count pCO2 pO2 HCO3 ABG pH ABG Total CO2 ABG O2 Saturation ABG O2 Content ABG Base Excess ABG Hemoglobin ABG Carboxyhemoglobin POC ABG HHb (Measured) ABG Methemoglobin ABG O2 Capacity Bridger Test A-a O2 Difference Hgb O2 Saturation Vent Mode Mechanical Rate FiO2 Tidal Volume PEEP Sodium Potassium Chloride Carbon Dioxide Anion Gap BUN Creatinine Est GFR ( Amer) Est GFR (Non-Af Amer) POC Glucose (mg/dL) 223 H 191 H 178 H Random Glucose Calcium 08/14/18 08/14/18 08/14/18 04:00 04:35 04:35 WBC 9.8 RBC 3.79 L Hgb 9.9 L Hct 30.3 L MCV 80.0 L MCH 26.2 L MCHC 32.7 L RDW 15.3 H Plt Count 575 H pCO2 46 H pO2 121 H HCO3 30.5 H ABG pH 7.45 ABG Total CO2 33.4 H ABG O2 Saturation 98.8 H ABG O2 Content 13.7 L ABG Base Excess 7.1 H ABG Hemoglobin 9.9 L ABG Carboxyhemoglobin 1.0 POC ABG HHb (Measured) 1.2 ABG Methemoglobin 0.7 ABG O2 Capacity 13.9 L Bridger Test Yes A-a O2 Difference 178.0 Hgb O2 Saturation 97.1 Vent Mode A/c Mechanical Rate 14 FiO2 50.0 Tidal Volume 450 PEEP 5 Sodium 149 H Potassium 3.3 L Chloride 110 H Carbon Dioxide 30 Anion Gap 12 BUN 36 H Creatinine 1.4 H Est GFR ( Amer) 46 Est GFR (Non-Af Amer) 38 POC Glucose (mg/dL) Random Glucose 259 H Calcium 9.7 08/14/18 06:08 WBC RBC Hgb Hct MCV MCH MCHC RDW Plt Count pCO2 pO2 HCO3 ABG pH ABG Total CO2 ABG O2 Saturation ABG O2 Content ABG Base Excess ABG Hemoglobin ABG Carboxyhemoglobin POC ABG HHb (Measured) ABG Methemoglobin ABG O2 Capacity Bridger Test A-a O2 Difference Hgb O2 Saturation Vent Mode Mechanical Rate FiO2 Tidal Volume PEEP Sodium Potassium Chloride Carbon Dioxide Anion Gap BUN Creatinine Est GFR ( Amer) Est GFR (Non-Af Amer) POC Glucose (mg/dL) 251 H Random Glucose Calcium Fingerstick Blood Sugar Results: 251 Critical Care Progress Note - Nutrition Nutrition: Nutrition Category Date Time Status NPO Diet [DIET] Diets 08/04/18 Breakfast Active Assessment/Plan - Assessment and Plan (Free Text) Assessment: 62 yo F with pmhx of HTN, DM2, Hypothyroid, GERD, schizophrenia [facility], admitted for sepsis secondary to pneumonia, experienced an episode of bradycardia and code blue was called for PEA with ROSC after epinephrine x3. Plan: AMS - possibly 2/2 Toxic metabolic encephalopathy - Schizophrenia - Intubated - d/c Clozapine - Psych: Dr. Skinner Recommends: start Risperdone and Valproic acid levels - Empiric IV Acyclovir - MRI: reordered for today Intubation -Mechanical ventilation -Reintubated on 08/12/2018 2/2 hypercarbia and hypoxemia Pneumonia -Tmax of 101.5 on 08/12/2018 -BCX neg x 48 hrs (x2) -UCX neg -AFB negative x3 -f/u sputum culture -Quant gold: indeterminate -Legionella: negative -CXR -Continue: IVABX: zosyn -s/p Vancomycin -ID: Dr. Castorena: continue IV ABX s/p Cardiac arrest -ROSC -EKG NSR -troponin: neg x4 Sepsis - Lactic acid: 1.9 from 3.2 on admission - BCX neg x 48 hrs (x2) - UCX neg - afebrile now DM 2 - SS Insulin medium coverage - Januvia - Metformin held Schizophrenia -Resume home meds Constipation - Lactulose Hypothyroid - Levothyroxine 50 mcg Seizure activity -Resolved -Dr. Keller: focal seizure on EEG; keppra 1000 mg BID; D/C Clozapine -CT head: No intracranial hemorrhage or mass effect. Cerebral atrophy and similar chronic microvascular ischemic changes. Paranasal sinus inflammatory changes-interval air-fluid level/sinusitis sphenoid sinus now noted. -Brain MRI: unable to be performed 2/2 body habitus. PT -Held: for out of bed trial when extubated Case dw Dr. Obdulio Naranjo MD PGY2 <Dillon Mak - Last Filed: 08/14/18 17:11> CCU Subjective - Physician Review Subjective (Free Text): Attestation: Patient seen and examined at the bedside with Resident Dr. Justus Naranjo; and I agree with his outline of plans and management documented above and below, reflecting my review of all applicable clinical data, and participation in the care of the patient throughout the day in ICU; today, August 14, 2018.
[2018-08-14] MEDS: Insulin Lispro (humaLOG) 100 Units/ml Inj SC SCH ×3 (11:06→21:11)
--- NOTE | 2018-08-14 11:34 | RAD ---
Date of service: 08/14/2018 PROCEDURE: CHEST RADIOGRAPH, 1 VIEW HISTORY: intubated COMPARISON: 08/13/2018 FINDINGS: LUNGS: Clear. PLEURA: No pneumothorax or pleural fluid seen. CARDIOVASCULAR: Normal heart size. ET tube tip is seen approximately 1.7 cm above the tracheal rojas. A nasogastric tube extends to the left upper abdomen. Normal. OSSEOUS STRUCTURES: No significant abnormalities. VISUALIZED UPPER ABDOMEN: Normal. OTHER FINDINGS: None. IMPRESSION: ET tube tip 1.7 cm above tracheal rojas. Nasogastric tube grossly unchanged. Otherwise unremarkable.
--- NOTE | 2018-08-14 13:26 | CP.PCM.CON ---
History of Present Illness - History of Present Illness History of Present Illness: consult requested for history of schizophrenia Patient is a 62 y/o female with PMH schizofrenia, HTN, DM sent from longterm for fall. In ED found to be febrile with elevated WBC count , bandemia,elevated lactic acid on evaluation, pt is intubated, unable to assess mental status Past Patient History - Past Medical History & Family History Past Medical History?: Yes - Past Social History Smoking Status: Light Smoker < 10 Cigarettes Daily - CARDIAC Hx Hypercholesterolemia: Yes Hx Hypertension: Yes - PULMONARY Hx Respiratory Disorders: Yes Hx Pneumonia: Yes - NEUROLOGICAL Hx Neurological Disorder: No - HEENT Hx HEENT Problems: No - RENAL Hx Chronic Kidney Disease: No - ENDOCRINE/METABOLIC Hx Endocrine Disorders: Yes Hx Diabetes Mellitus Type 2: Yes Hx Hypothyroidism: Yes - HEMATOLOGICAL/ONCOLOGICAL Hx Blood Disorders: No Hx AIDS: No Hx Human Immunodeficiency Virus (HIV): No - INTEGUMENTARY Hx Dermatological Problems: No - MUSCULOSKELETAL/RHEUMATOLOGICAL Hx Musculoskeletal Disorders: No Hx Falls: Yes - GASTROINTESTINAL Hx Gastritis: Yes - GENITOURINARY/GYNECOLOGICAL Hx Genitourinary Disorders: No - PSYCHIATRIC Hx Psychophysiologic Disorder: Yes Hx Depression: Yes Hx Schizophrenia: Yes Hx Substance Use: No - SURGICAL HISTORY Hx Surgeries: No - ANESTHESIA Hx Anesthesia: No Meds Allergies/Adverse Reactions: Allergies Allergy/AdvReac Type Severity Reaction Status Date / Time No Known Allergies Allergy Verified 08/02/18 21:49 - Medications Medications: Current Medications Acetaminophen (Tylenol 325mg Tab) 650 mg PO Q6 PRN PRN Reason: Fever >100.4 F Last Admin: 08/05/18 05:35 Dose: 650 mg Acetaminophen (Tylenol 650 Mg Supp) 650 mg [place] Q6 PRN PRN Reason: Temperature Last Admin: 08/12/18 16:41 Dose: 650 mg Albuterol/Ipratropium (Duoneb 3 Mg/0.5 Mg (3 Ml) Ud) 3 ml INH RQ6 PRN PRN Reason: Shortness of Breath Last Admin: 08/12/18 13:52 Dose: 3 ml Amlodipine Besylate (Norvasc) 10 mg PO DAILY [facility] Last Admin: 08/14/18 08:05 Dose: 10 mg Aspirin (Ecotrin) 325 mg PO DAILY [facility] Last Admin: 08/11/18 08:58 Dose: Not Given Atorvastatin Calcium (Lipitor) 10 mg PO HS [facility] Last Admin: 08/13/18 21:10 Dose: 10 mg Carvedilol (Coreg) 12.5 mg PO Q12 [facility] Last Admin: 08/14/18 08:03 Dose: 12.5 mg Dextrose (Dextrose 50% Inj) 0 ml IV STAT PRN; Protocol PRN Reason: Hypoglycemia Protocol Dextrose (Glutose 15) 0 gm PO ONCE PRN; Protocol PRN Reason: Hypoglycemia Protocol Divalproex Sodium (Depakote Er(Once Daily)) 1,250 mg PO HS [facility] Last Admin: 08/03/18 21:56 Dose: 1,250 mg Enoxaparin Sodium (Lovenox) 40 mg SC DAILY [facility]; Protocol Last Admin: 08/14/18 08:05 Dose: 40 mg Escitalopram Oxalate (Lexapro) 10 mg PO HS [facility] Last Admin: 08/13/18 21:10 Dose: 10 mg Fluticasone Propionate (Flonase) 2 spr ANIKA DAILY [facility] Last Admin: 08/14/18 08:04 Dose: Not Given Furosemide (Lasix) 40 mg IVP BID [facility] Last Admin: 08/14/18 08:04 Dose: 40 mg Glucagon (Glucagen Diagnostic Kit) 0 mg IM STAT PRN; Protocol PRN Reason: Hypoglycemia Protocol Haloperidol Lactate (Haldol) 5 mg IVP Q8 PRN PRN Reason: Agitation Last Admin: 08/13/18 09:45 Dose: 5 mg Piperacillin Sod/Tazobactam (Sod 3.375 gm/ Sodium Chloride) 100 mls @ 100 mls/hr IVPB Q8 [facility]; Protocol Last Admin: 08/14/18 08:06 Dose: 100 mls/hr Levetiracetam 1,000 mg/ Sodium (Chloride) 110 mls @ 110 mls/hr IVPB Q12@0300,1500 [facility] Last Admin: 08/14/18 03:16 Dose: 110 mls/hr Acyclovir 800 mg/ Sodium (Chloride) 250 mls @ 250 mls/hr IVPB Q8 [facility]; Protocol Last Admin: 08/14/18 08:07 Dose: 250 mls/hr Propofol (Diprivan) 1,000 mg in 100 mls @ 16.003 mls/hr IV .Q6H15M [facility]; Protocol Stop: 08/14/18 23:13 Last Admin: 08/14/18 12:21 Dose: 30 mcg/kg/min, 16.003 mls/hr Ibuprofen (Motrin Tab) 600 mg PO Q6 PRN PRN Reason: Fever >100.4 F Last Admin: 08/14/18 11:20 Dose: 600 mg Insulin Detemir (Levemir) 20 units SC HS [facility] Last Admin: 08/13/18 21:11 Dose: 20 units Insulin Human Lispro (Humalog) 0 units SC Q6 [facility]; Protocol Last Admin: 08/14/18 11:06 Dose: 4 units Lactulose (Enulose) 20 gm PO Q12 PRN PRN Reason: Constipation Last Admin: 08/14/18 11:21 Dose: 20 gm Levothyroxine Sodium (Synthroid) 50 mcg PO DAILY@0630 [facility] Last Admin: 08/14/18 05:37 Dose: 50 mcg Lorazepam (Ativan) 2 mg IVP Q6 PRN PRN Reason: Agitation Last Admin: 08/14/18 04:09 Dose: 2 mg Losartan Potassium (Cozaar) 100 mg PO DAILY [facility] Last Admin: 08/14/18 08:04 Dose: 100 mg Morphine Sulfate (Morphine) 4 mg IVP Q4H PRN PRN Reason: Agitation Last Admin: 08/14/18 07:48 Dose: 4 mg Multivitamins/Minerals (Therapeutic-M Tab) 1 tab PO DAILY [facility] Last Admin: 08/11/18 09:03 Dose: Not Given Pantoprazole Sodium (Protonix Ec Tab) 20 mg PO DAILY [facility] Last Admin: 08/11/18 09:03 Dose: Not Given Pantoprazole Sodium (Protonix Inj) 40 mg IVP DAILY [facility] Last Admin: 08/14/18 08:05 Dose: 40 mg Risperidone (Risperdal Tab) 2 mg PO DAILY [facility] Last Admin: 08/14/18 12:51 Dose: 2 mg Sitagliptin Phosphate (Januvia) 100 mg PO [facility] Last Admin: 08/13/18 21:10 Dose: 100 mg Results - Vital Signs Recent Vital Signs: Last Vital Signs Temp 100.6 F H 08/14/18 12:00 Pulse 75 08/14/18 12:00 Resp 15 08/14/18 12:00 BP 160/75 H 08/14/18 12:00 Pulse Ox 100 08/14/18 12:00 - Labs Result Diagrams: 08/14/18 04:35 08/14/18 04:35 Labs: Laboratory Results - last 24 hr 08/13/18 08/13/18 08/14/18 16:31 20:57 04:00 WBC RBC Hgb Hct MCV MCH MCHC RDW Plt Count pCO2 46 H pO2 121 H HCO3 30.5 H ABG pH 7.45 ABG Total CO2 33.4 H ABG O2 Saturation 98.8 H ABG O2 Content 13.7 L ABG Base Excess 7.1 H ABG Hemoglobin 9.9 L ABG Carboxyhemoglobin 1.0 POC ABG HHb (Measured) 1.2 ABG Methemoglobin 0.7 ABG O2 Capacity 13.9 L Bridger Test Yes A-a O2 Difference 178.0 Hgb O2 Saturation 97.1 Vent Mode A/c Mechanical Rate 14 FiO2 50.0 Tidal Volume 450 PEEP 5 Sodium Potassium Chloride Carbon Dioxide Anion Gap BUN Creatinine Est GFR ( Amer) Est GFR (Non-Af Amer) POC Glucose (mg/dL) 191 H 178 H Random Glucose Calcium Valproic Acid 08/14/18 08/14/18 08/14/18 04:35 04:35 06:08 WBC 9.8 RBC 3.79 L Hgb 9.9 L Hct 30.3 L MCV 80.0 L MCH 26.2 L MCHC 32.7 L RDW 15.3 H Plt Count 575 H pCO2 pO2 HCO3 ABG pH ABG Total CO2 ABG O2 Saturation ABG O2 Content ABG Base Excess ABG Hemoglobin ABG Carboxyhemoglobin POC ABG HHb (Measured) ABG Methemoglobin ABG O2 Capacity Bridger Test A-a O2 Difference Hgb O2 Saturation Vent Mode Mechanical Rate FiO2 Tidal Volume PEEP Sodium 149 H Potassium 3.3 L Chloride 110 H Carbon Dioxide 30 Anion Gap 12 BUN 36 H Creatinine 1.4 H Est GFR ( Amer) 46 Est GFR (Non-Af Amer) 38 POC Glucose (mg/dL) 251 H Random Glucose 259 H Calcium 9.7 Valproic Acid 08/14/18 08/14/18 11:00 12:41 WBC RBC Hgb Hct MCV MCH MCHC RDW Plt Count pCO2 pO2 HCO3 ABG pH ABG Total CO2 ABG O2 Saturation ABG O2 Content ABG Base Excess ABG Hemoglobin ABG Carboxyhemoglobin POC ABG HHb (Measured) ABG Methemoglobin ABG O2 Capacity Bridger Test A-a O2 Difference Hgb O2 Saturation Vent Mode Mechanical Rate FiO2 Tidal Volume PEEP Sodium Potassium Chloride Carbon Dioxide Anion Gap BUN Creatinine Est GFR ( Amer) Est GFR (Non-Af Amer) POC Glucose (mg/dL) 230 H Random Glucose Calcium Valproic Acid < 10.0 L Assessment & Plan - Assessment and Plan (Free Text) Assessment: schizophrenia delirium Plan: pt reported to be agitated at times with hyperactive delirium recommend risperidone 0.5mg q12 prn pt to be re evaluated by psychiatry, when able to communicate
--- NOTE | 2018-08-14 13:50 | CP.PCM.PN ---
Subjective - Date & Time of Evaluation Date of Evaluation: 08/14/18 Time of Evaluation: 08:00 - Subjective Subjective: events noted still intubated and altered iv rx renewed MRI and CXR noted consider CT ABDomen/ pelvis r/o occult abscess consider Lumbar puncture consider d/c antibiotics and reculture as all cultures negative Objective - Vital Signs/Intake and Output Vital Signs (last 24 hours): Temp Pulse Resp BP Pulse Ox 100.6 F H 75 15 160/75 H 100 08/14/18 12:00 08/14/18 12:00 08/14/18 12:00 08/14/18 12:00 08/14/18 12:00 Intake and Output: 08/14/18 08/14/18 06:59 18:59 Intake Total 1720 1030 Output Total 1000 Balance 720 1030 - Medications Medications: Current Medications Acetaminophen (Tylenol 325mg Tab) 650 mg PO Q6 PRN PRN Reason: Fever >100.4 F Last Admin: 08/05/18 05:35 Dose: 650 mg Acetaminophen (Tylenol 650 Mg Supp) 650 mg [place] Q6 PRN PRN Reason: Temperature Last Admin: 08/12/18 16:41 Dose: 650 mg Albuterol/Ipratropium (Duoneb 3 Mg/0.5 Mg (3 Ml) Ud) 3 ml INH RQ6 PRN PRN Reason: Shortness of Breath Last Admin: 08/12/18 13:52 Dose: 3 ml Amlodipine Besylate (Norvasc) 10 mg PO DAILY [facility] Last Admin: 08/14/18 08:05 Dose: 10 mg Aspirin (Ecotrin) 325 mg PO DAILY [facility] Last Admin: 08/11/18 08:58 Dose: Not Given Atorvastatin Calcium (Lipitor) 10 mg PO HS [facility] Last Admin: 08/13/18 21:10 Dose: 10 mg Carvedilol (Coreg) 12.5 mg PO Q12 [facility] Last Admin: 08/14/18 08:03 Dose: 12.5 mg Dextrose (Dextrose 50% Inj) 0 ml IV STAT PRN; Protocol PRN Reason: Hypoglycemia Protocol Dextrose (Glutose 15) 0 gm PO ONCE PRN; Protocol PRN Reason: Hypoglycemia Protocol Divalproex Sodium (Depakote Er(Once Daily)) 1,250 mg PO [facility] Last Admin: 08/03/18 21:56 Dose: 1,250 mg Enoxaparin Sodium (Lovenox) 40 mg SC DAILY [facility]; Protocol Last Admin: 08/14/18 08:05 Dose: 40 mg Escitalopram Oxalate (Lexapro) 10 mg PO HS [facility] Last Admin: 08/13/18 21:10 Dose: 10 mg Fluticasone Propionate (Flonase) 2 spr ANIKA DAILY [facility] Last Admin: 08/14/18 08:04 Dose: Not Given Furosemide (Lasix) 40 mg IVP BID [facility] Last Admin: 08/14/18 08:04 Dose: 40 mg Glucagon (Glucagen Diagnostic Kit) 0 mg IM STAT PRN; Protocol PRN Reason: Hypoglycemia Protocol Haloperidol Lactate (Haldol) 5 mg IVP Q8 PRN PRN Reason: Agitation Last Admin: 08/13/18 09:45 Dose: 5 mg Piperacillin Sod/Tazobactam (Sod 3.375 gm/ Sodium Chloride) 100 mls @ 100 mls/hr IVPB Q8 [facility]; Protocol Last Admin: 08/14/18 08:06 Dose: 100 mls/hr Levetiracetam 1,000 mg/ Sodium (Chloride) 110 mls @ 110 mls/hr IVPB Q12@0300,1500 [facility] Last Admin: 08/14/18 03:16 Dose: 110 mls/hr Acyclovir 800 mg/ Sodium (Chloride) 250 mls @ 250 mls/hr IVPB Q8 [facility]; Protocol Last Admin: 08/14/18 08:07 Dose: 250 mls/hr Propofol (Diprivan) 1,000 mg in 100 mls @ 16.003 mls/hr IV .Q6H15M [facility]; Protocol Stop: 08/14/18 23:13 Last Admin: 08/14/18 12:21 Dose: 30 mcg/kg/min, 16.003 mls/hr Ibuprofen (Motrin Tab) 600 mg PO Q6 PRN PRN Reason: Fever >100.4 F Last Admin: 08/14/18 11:20 Dose: 600 mg Insulin Detemir (Levemir) 20 units SC HS [facility] Last Admin: 08/13/18 21:11 Dose: 20 units Insulin Human Lispro (Humalog) 0 units SC Q6 [facility]; Protocol Last Admin: 08/14/18 11:06 Dose: 4 units Lactulose (Enulose) 20 gm PO Q12 PRN PRN Reason: Constipation Last Admin: 08/14/18 11:21 Dose: 20 gm Levothyroxine Sodium (Synthroid) 50 mcg PO DAILY@0630 [facility] Last Admin: 08/14/18 05:37 Dose: 50 mcg Lorazepam (Ativan) 2 mg IVP Q6 PRN PRN Reason: Agitation Last Admin: 08/14/18 04:09 Dose: 2 mg Losartan Potassium (Cozaar) 100 mg PO DAILY [facility] Last Admin: 08/14/18 08:04 Dose: 100 mg Morphine Sulfate (Morphine) 4 mg IVP Q4H PRN PRN Reason: Agitation Last Admin: 08/14/18 07:48 Dose: 4 mg Multivitamins/Minerals (Therapeutic-M Tab) 1 tab PO DAILY [facility] Last Admin: 08/11/18 09:03 Dose: Not Given Pantoprazole Sodium (Protonix Ec Tab) 20 mg PO DAILY [facility] Last Admin: 08/11/18 09:03 Dose: Not Given Pantoprazole Sodium (Protonix Inj) 40 mg IVP DAILY [facility] Last Admin: 08/14/18 08:05 Dose: 40 mg Risperidone (Risperdal Tab) 2 mg PO DAILY [facility] Last Admin: 08/14/18 12:51 Dose: 2 mg Sitagliptin Phosphate (Januvia) 100 mg PO HS [facility] Last Admin: 08/13/18 21:10 Dose: 100 mg - Labs Labs: 08/14/18 04:35 08/14/18 04:35 PT 12.2 Seconds (9.8-13.1) 08/04/18 00:30 INR 1.1 08/04/18 00:30 APTT 31.5 Seconds (25.6-37.1) 08/02/18 22:20 - Constitutional Appears: Chronically Ill - Head Exam Head Exam: NORMOCEPHALIC - Eye Exam Eye Exam: absent: Scleral icterus - ENT Exam ENT Exam: Mucous Membranes Dry - Neck Exam Neck Exam: absent: Lymphadenopathy - Respiratory Exam Respiratory Exam: Decreased Breath Sounds - Cardiovascular Exam Cardiovascular Exam: REGULAR RHYTHM - GI/Abdominal Exam GI & Abdominal Exam: Distended Assessment and Plan (1) Pneumonia Status: Acute (2) Severe sepsis Status: Acute
[2018-08-14] MEDS ORDERED: RISPERIDONE 0.25 MG ODT PO PRN (14:04)
--- NOTE | 2018-08-14 18:22 | MRI ---
Date of service: 08/14/2018 PROCEDURE: MRI BRAIN WITHOUT CONTRAST HISTORY: Seizure/r/o encephalopathy COMPARISON: Comparison made with prior CT scan of the brain dated 08/05/2018. TECHNIQUE: Multiplanar, multisequence MR images of the brain were obtained without intravenous contrast enhancement. This examination is limited by motion artifact FINDINGS: HEMORRHAGE: No acute parenchymal subarachnoid or extra-axial hemorrhage. No evidence of hemosiderin deposition identified on gradient echo weighted sequence. The the DWI: No evidence of an acute or early subacute infarction seen on diffusion imaging. BRAIN PARENCHYMA: Minimal chronic periventricular white matter ischemic changes with a few tiny chronic appearing lacunar type infarcts scattered about the deep and subcortical white matter both cerebral hemispheres. VENTRICLES: No obstructive hydrocephalus. CRANIUM: Unremarkable. ORBITS: Grossly unremarkable. PARANASAL SINUSES/MASTOIDS: Mild mucosal thickening seen in the sphenoid sinus and 1 or 2 left posterior ethmoid air cells. There is moderate opacification of the right mastoid air complex and suspected minimal opacification few left-sided mastoid air cells.. VASCULAR SYSTEM: The skull base voids are poorly delineated due to motion artifact though appear grossly patent. OTHER FINDINGS: None. IMPRESSION: No acute intracranial hemorrhage or infarct. Minimal chronic periventricular white matter ischemic changes with a few tiny chronic appearing lacunar type infarcts scattered about the deep and subcortical white matter both cerebral hemispheres. Moderate generalized volume loss.
[2018-08-14] MEDS ORDERED: cefTRIAXone 2 GM in Sodium Chloride 0.9% 100 ML IVPB SCH (19:30)
[2018-08-14] MEDS: Insulin Detemir 100 Units/ml Inj SC SCH (21:08)
[2018-08-14] MEDS: Divalproex 250 mg ER (ONCE DAILY formulation) PO SCH ×2 (21:49→21:56)
[2018-08-15] MEDS: Enalaprilat 2.5 MG/2 ML IVP SCH ×4 (01:07→20:29)
[2018-08-15] MEDS: Propofol 10 mg/ml 1,000 MG/100 ML VIAL IV SCH ×2 (01:16→08:18)
[2018-08-15] MEDS: levETIRAcetam 1,000 MG in Sodium Chloride 0.9% 100 ML IVPB SCH ×2 (02:06→16:15)
[2018-08-15 04:08] LABS: ABG ALLEN TEST YES; ARTERIAL BLOOD GAS HCO3 30.7 mmol/L (21-28); ARTERIAL BLOOD GAS HEMOGLOBIN 9.4 g/dL (11.7-17.4); ARTERIAL BLOOD GAS O2 CAPACITY 13.3 mL/dL (16-24); ARTERIAL BLOOD GAS O2 CONTENT 13.2 ML/dL (15-23); ARTERIAL BLOOD GAS O2 SAT 99.2 % (95-98); ARTERIAL BLOOD GAS PCO2 40 mm/Hg (35-45); ARTERIAL BLOOD GAS PO2 145 mm/Hg (80-100); ARTERIAL BLOOD GAS TCO2 32.4 mmol/L (22-28)
[2018-08-15] MEDS: Insulin Lispro (humaLOG) 100 Units/ml Inj SC SCH ×4 (04:44→21:37)
[2018-08-15] MEDS: Levothyroxine 50 MCG TAB PO SCH (06:38)
[2018-08-15 06:43] LABS: HEMOGLOBIN 9.4 g/dL (12.0-16.0); MEAN CELL VOLUME 80.6 fl (81.0-99.0); MEAN CORPUSCULAR HEMOGLOBIN 25.9 pg (27.0-31.0); MEAN CORPUSCULAR HGB CONC 32.1 g/dL (33.0-37.0); RBC 3.64 Mil/uL (3.80-5.20); RED CELL DISTRIBUTION WIDTH 15.9 % (11.5-14.5); WHITE BLOOD COUNT 6.6 K/uL (4.8-10.8)
[2018-08-15 06:58] LABS: ALB/GLOB RATIO 0.9 (1.0-2.1); ALBUMIN 3.7 g/dL (3.5-5.0); CALCIUM 9.8 mg/dL (8.4-10.2)
[2018-08-15] MEDS: Enoxaparin 40 mg Syringe SC SCH (08:23)
[2018-08-15] MEDS: cefTRIAXone 2 GM in Sodium Chloride 0.9% 100 ML IVPB SCH ×2 (08:24→20:34)
[2018-08-15] MEDS ORDERED: Potassium Chloride 20 mEq/15 ml LIQ UD PO ONE (08:57)
[2018-08-15] MEDS ORDERED: Sodium Chloride 3% for Inhalation 4 ML VIAL.NEB IH PRN (09:18)
--- NOTE | 2018-08-15 10:01 | CP.PCM.PN ---
Subjective - Date & Time of Evaluation Date of Evaluation: 08/15/18 Time of Evaluation: 09:00 - Subjective Subjective: [facility]40% Febrile unresponsive to stimuli however noted to spontaneously move extremities tolerating tube feeding + constipation Objective - Vital Signs/Intake and Output Vital Signs (last 24 hours): Temp Pulse Resp BP Pulse Ox 102.3 F H 72 15 188/76 H 100 08/15/18 08:03 08/15/18 08:00 08/15/18 08:00 08/15/18 08:23 08/15/18 08:00 Intake and Output: 08/15/18 08/15/18 06:59 18:59 Intake Total 1832 252 Output Total 700 Balance 1132 252 - Medications Medications: Current Medications Acetaminophen (Tylenol 325mg Tab) 650 mg PO Q6 PRN PRN Reason: Fever >100.4 F Last Admin: 08/05/18 05:35 Dose: 650 mg Acetaminophen (Tylenol 650 Mg Supp) 650 mg [place] Q6 PRN PRN Reason: Temperature Last Admin: 08/14/18 15:56 Dose: 650 mg Albuterol/Ipratropium (Duoneb 3 Mg/0.5 Mg (3 Ml) Ud) 3 ml INH RQ6 PRN PRN Reason: Shortness of Breath Last Admin: 08/12/18 13:52 Dose: 3 ml Amlodipine Besylate (Norvasc) 10 mg PO DAILY [facility] Last Admin: 08/15/18 08:23 Dose: 10 mg Aspirin (Ecotrin) 325 mg PO DAILY [facility] Last Admin: 08/11/18 08:58 Dose: Not Given Atorvastatin Calcium (Lipitor) 10 mg PO HS [facility] Last Admin: 08/14/18 21:01 Dose: 10 mg Carvedilol (Coreg) 12.5 mg PO Q12 [facility] Last Admin: 08/15/18 08:22 Dose: 12.5 mg Dextrose (Dextrose 50% Inj) 0 ml IV STAT PRN; Protocol PRN Reason: Hypoglycemia Protocol Dextrose (Glutose 15) 0 gm PO ONCE PRN; Protocol PRN Reason: Hypoglycemia Protocol Divalproex Sodium (Depakote Er(Once Daily)) 1,250 mg PO [facility] Last Admin: 08/14/18 21:56 Dose: 1,250 mg Enalaprilat (Vasotec) 2.5 mg IVP Q6H [facility] Last Admin: 08/15/18 06:58 Dose: 2.5 mg Enoxaparin Sodium (Lovenox) 40 mg SC DAILY [facility]; Protocol Last Admin: 08/15/18 08:23 Dose: 40 mg Escitalopram Oxalate (Lexapro) 10 mg PO [facility] Last Admin: 08/14/18 21:01 Dose: 10 mg Fluticasone Propionate (Flonase) 2 spr ANIKA DAILY [facility] Last Admin: 08/15/18 08:22 Dose: Not Given Glucagon (Glucagen Diagnostic Kit) 0 mg IM STAT PRN; Protocol PRN Reason: Hypoglycemia Protocol Haloperidol Lactate (Haldol) 5 mg IVP Q8 PRN PRN Reason: Agitation Last Admin: 08/13/18 09:45 Dose: 5 mg Hydralazine HCl (Apresoline) 10 mg PO QID [facility] Levetiracetam 1,000 mg/ Sodium (Chloride) 110 mls @ 110 mls/hr IVPB Q12@0300,1500 [facility] Last Admin: 08/15/18 02:06 Dose: 110 mls/hr Ceftriaxone Sodium 2 gm/ (Sodium Chloride) 100 mls @ 100 mls/hr IVPB Q12 [facility]; Protocol Last Admin: 08/15/18 08:24 Dose: 100 mls/hr Ibuprofen (Motrin Tab) 600 mg PO Q6 PRN PRN Reason: Fever >100.4 F Last Admin: 08/15/18 07:03 Dose: 600 mg Insulin Detemir (Levemir) 20 units SC [facility] Last Admin: 08/14/18 21:08 Dose: 20 units Insulin Human Lispro (Humalog) 0 units SC Q6 [facility]; Protocol Last Admin: 08/15/18 04:44 Dose: 4 units Lactulose (Enulose) 20 gm PO Q12 PRN PRN Reason: Constipation Last Admin: 08/15/18 09:54 Dose: 20 gm Levothyroxine Sodium (Synthroid) 50 mcg PO DAILY@0630 [facility] Last Admin: 08/15/18 06:38 Dose: 50 mcg Lorazepam (Ativan) 2 mg IVP Q6 PRN PRN Reason: Agitation Last Admin: 08/14/18 04:09 Dose: 2 mg Losartan Potassium (Cozaar) 100 mg PO DAILY [facility] Last Admin: 08/15/18 08:22 Dose: 100 mg Morphine Sulfate (Morphine) 4 mg IVP Q4H PRN PRN Reason: Agitation Last Admin: 08/14/18 07:48 Dose: 4 mg Multivitamins/Minerals (Therapeutic-M Tab) 1 tab PO DAILY [facility] Last Admin: 08/11/18 09:03 Dose: Not Given Pantoprazole Sodium (Protonix Ec Tab) 20 mg PO DAILY [facility] Last Admin: 08/11/18 09:03 Dose: Not Given Pantoprazole Sodium (Protonix Inj) 40 mg IVP DAILY [facility] Last Admin: 08/15/18 08:24 Dose: 40 mg Risperidone (Risperidone Odt 0.25mg) 0.25 mg PO BID [facility] Sitagliptin Phosphate (Januvia) 100 mg PO HS [facility] Last Admin: 08/14/18 21:01 Dose: 100 mg - Labs Labs: 08/15/18 05:15 08/15/18 05:15 PT 12.2 Seconds (9.8-13.1) 08/04/18 00:30 INR 1.1 08/04/18 00:30 APTT 31.5 Seconds (25.6-37.1) 08/02/18 22:20 - Constitutional Appears: No Acute Distress, Chronically Ill, Other (Intubbated on mech Vent) - Head Exam Head Exam: NORMAL INSPECTION, NORMOCEPHALIC - Eye Exam Eye Exam: PERRL - ENT Exam ENT Exam: Mucous Membranes Dry, Normal External Ear Exam Additional comments: OGT in place - Neck Exam Neck Exam: absent: Meningismus - Respiratory Exam Respiratory Exam: Rales, Rhonchi, NORMAL BREATHING PATTERN. absent: Wheezes - Cardiovascular Exam Cardiovascular Exam: REGULAR RHYTHM, +S1, +S2 - GI/Abdominal Exam GI & Abdominal Exam: Soft, Normal Bowel Sounds - Extremities Exam Extremities Exam: Normal Capillary Refill - Neurological Exam Additional comments: Sedated moves extremities - Skin Skin Exam: Dry, Normal Color, Warm Assessment and Plan - Assessment and Plan (Free Text) Assessment: 62 yo female from a custodial, with hx of DM II, schizophrenia and HTN; initially admitted for sepsis and pneumonia. Initial labs were significant for leukocytosis with bandemia; CXR showed atelectasis vs infiltrate and pt was started on vancomycin, zosyn and zithromax IV. During the admission, pt was found to be bradycardic and became unresponsive. Code Blue was called for suspected Pulseless Electrical Activity; compressions done ,was achieved after 3 rounds of epinephrine. She was then transferred to ICU. When weaned off sedation, mental status changes appreciated per family when compared to her baseline. Neurology was consulted. MRI : negative for acute CVA. 1. s/p CardioRespiratory Arrest -s/p Beau Moura ( received 3 doses of epinephrine) -Intubated on [facility] Vent 14/450/5/40% -EKG wnl and troponin neg x2 2. Localization-related (focal) (partial) symptomatic epileps -as per neuro due to pts infection and antipsychotic lowered seizure threshold; appear to have resolved now -cont Keppra 1000 mg Q12 - Clozapine discontinued - rpt EEG as per Dr Corona 3. AMS due to Encephalopathy - unclear etiology empirically treated with IV Acyclovir for poss Encephalitis Cu;tures negative MRI of Brain - no signs of Stroke nor Encephalitis tx underlying infection unclear if AMS due to Psych dis 4. 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, QF gold Indeterminate - Dr Castorena rec d/c antibiotics and reculture Persistent Fever d/c abx accdg to Dr Castorena rec LP and CT of abdomen Lovenox given today - will hold Lovenox and consult Anesthesia for LP CT of abd with contrast Anasarca -Likely secondary to fluid overloaded; improving -IV lasix given -Strict I&Os -Renal function stable Hypothyrodism -Chronic, uncontrolled -Levothyroxine 50mcg daily - TSH sl low - dose of Levothyroxine decreased DM -Chronic -Metformin on hold -Increase Levemir to 25 units q hs -Insulin coverage scale and hypoglycemia protocol -Hypoglycemia protocol HTN uncontrolled - cont Lasix, Amlodipine, Coreg and Losartan - add Hydralazine Schizophrenia -Chronic -Home meds held for now -cont Depakote - Psych consulted- rec Lexapro and Risperdal Hypernatremia hold Lasix for now Hypokalemia - replace with KCl DVT prophylaxis -Lovenox SQ
--- NOTE | 2018-08-15 13:01 | CP.PCM.PN ---
Subjective - Date & Time of Evaluation Date of Evaluation: 08/14/18 Time of Evaluation: 11:00 - Subjective Subjective: Miss reyes's mental status is fluctuating. At times she is moving her arms and legs, and during my exam, she is not moving her arms and only intermittently moves her right leg. No seizures noted. Chart reviewed. On exam: awake, perrl. gag, corneals and dolls eyes present. motor: lift legs above gravity, but her arms appear weak. not following commands consistently -closes and opens eyes. sensory: not able to assess. +2 dtr ul and ll bl. Objective - Vital Signs/Intake and Output Vital Signs (last 24 hours): Temp Pulse Resp BP Pulse Ox 101.2 F H 78 16 184/87 H 100 08/15/18 12:00 08/15/18 12:00 08/15/18 12:00 08/15/18 12:00 08/15/18 12:00 Intake and Output: 08/15/18 08/15/18 06:59 18:59 Intake Total 1832 788 Output Total 700 Balance 1132 788 - Medications Medications: Current Medications Acetaminophen (Tylenol 325mg Tab) 650 mg PO Q6 PRN PRN Reason: Fever >100.4 F Last Admin: 08/05/18 05:35 Dose: 650 mg Acetaminophen (Tylenol 650 Mg Supp) 650 mg [place] Q6 PRN PRN Reason: Temperature Last Admin: 08/14/18 15:56 Dose: 650 mg Albuterol/Ipratropium (Duoneb 3 Mg/0.5 Mg (3 Ml) Ud) 3 ml INH RQ6 PRN PRN Reason: Shortness of Breath Last Admin: 08/12/18 13:52 Dose: 3 ml Amlodipine Besylate (Norvasc) 10 mg PO DAILY [facility] Last Admin: 08/15/18 08:23 Dose: 10 mg Aspirin (Ecotrin) 325 mg PO DAILY [facility] Last Admin: 08/11/18 08:58 Dose: Not Given Atorvastatin Calcium (Lipitor) 10 mg PO HS [facility] Last Admin: 08/14/18 21:01 Dose: 10 mg Carvedilol (Coreg) 25 mg PO Q12 [facility] Dextrose (Dextrose 50% Inj) 0 ml IV STAT PRN; Protocol PRN Reason: Hypoglycemia Protocol Dextrose (Glutose 15) 0 gm PO ONCE PRN; Protocol PRN Reason: Hypoglycemia Protocol Divalproex Sodium (Depakote Er(Once Daily)) 1,250 mg PO HS [facility] Last Admin: 08/14/18 21:56 Dose: 1,250 mg Enalaprilat (Vasotec) 2.5 mg IVP Q6H [facility] Last Admin: 08/15/18 06:58 Dose: 2.5 mg Enoxaparin Sodium (Lovenox) 40 mg SC DAILY [facility]; Protocol Last Admin: 08/15/18 08:23 Dose: 40 mg Escitalopram Oxalate (Lexapro) 10 mg PO HS [facility] Last Admin: 08/14/18 21:01 Dose: 10 mg Fluticasone Propionate (Flonase) 2 spr ANIKA DAILY [facility] Last Admin: 08/15/18 08:22 Dose: Not Given Glucagon (Glucagen Diagnostic Kit) 0 mg IM STAT PRN; Protocol PRN Reason: Hypoglycemia Protocol Haloperidol Lactate (Haldol) 5 mg IVP Q8 PRN PRN Reason: Agitation Last Admin: 08/13/18 09:45 Dose: 5 mg Hydralazine HCl (Apresoline) 10 mg PO QID [facility] Last Admin: 08/15/18 11:46 Dose: 10 mg Levetiracetam 1,000 mg/ Sodium (Chloride) 110 mls @ 110 mls/hr IVPB Q12@0300,1500 [facility] Last Admin: 08/15/18 02:06 Dose: 110 mls/hr Ceftriaxone Sodium 2 gm/ (Sodium Chloride) 100 mls @ 100 mls/hr IVPB Q12 [facility]; Protocol Last Admin: 08/15/18 08:24 Dose: 100 mls/hr Ibuprofen (Motrin Tab) 600 mg PO Q6 PRN PRN Reason: Fever >100.4 F Last Admin: 08/15/18 07:03 Dose: 600 mg Insulin Detemir (Levemir) 20 units SC HS [facility] Last Admin: 08/14/18 21:08 Dose: 20 units Insulin Human Lispro (Humalog) 0 units SC Q6 [facility]; Protocol Last Admin: 08/15/18 11:46 Dose: 4 units Lactulose (Enulose) 20 gm PO Q12 PRN PRN Reason: Constipation Last Admin: 08/15/18 09:54 Dose: 20 gm Levothyroxine Sodium (Synthroid) 50 mcg PO DAILY@0630 [facility] Last Admin: 08/15/18 06:38 Dose: 50 mcg Lorazepam (Ativan) 2 mg IVP Q6 PRN PRN Reason: Agitation Last Admin: 08/14/18 04:09 Dose: 2 mg Losartan Potassium (Cozaar) 100 mg PO DAILY [facility] Last Admin: 08/15/18 08:22 Dose: 100 mg Morphine Sulfate (Morphine) 4 mg IVP Q4H PRN PRN Reason: Agitation Last Admin: 08/14/18 07:48 Dose: 4 mg Multivitamins/Minerals (Therapeutic-M Tab) 1 tab PO DAILY [facility] Last Admin: 08/11/18 09:03 Dose: Not Given Pantoprazole Sodium (Protonix Ec Tab) 20 mg PO DAILY [facility] Last Admin: 08/11/18 09:03 Dose: Not Given Pantoprazole Sodium (Protonix Inj) 40 mg IVP DAILY [facility] Last Admin: 08/15/18 08:24 Dose: 40 mg Risperidone (Risperidone Odt 0.25mg) 0.25 mg PO BID [facility] Sitagliptin Phosphate (Januvia) 100 mg PO HS [facility] Last Admin: 08/14/18 21:01 Dose: 100 mg - Labs Labs: 08/15/18 05:15 08/15/18 05:15 PT 12.2 Seconds (9.8-13.1) 08/04/18 00:30 INR 1.1 08/04/18 00:30 APTT 31.5 Seconds (25.6-37.1) 08/02/18 22:20 Assessment and Plan - Assessment and Plan (Free Text) Assessment: Patient with encephalopathy and inconsistent neurological exam, not having seizures. Prior eeg did not show epilepsy either. A/p: 62 yr old woman with encepholopathy of unknown etiology, with no signs of seizure who would benefit from MRI Brain without ulises. PLan: 1. MRI Brain without ulises to assess for stroke. 2. Continue all other medications. 3. one hour eeg Dr. escobar
--- NOTE | 2018-08-15 13:10 | CP.PCM.PN ---
Subjective - Date & Time of Evaluation Date of Evaluation: 08/15/18 Time of Evaluation: 16:00 - Subjective Subjective: Miss Ahumada is visiting with family, and is awake, and intubated, and moving her right leg. no verbal output. PERRL. dolls eyes and corneals present. She is not following commands, but it is not clear if this is volitional. ROS: not obtainable. On exam: PERRL. Dolls eyes, gag, corneals present. no verbal output. motor: moves right arm but not other limbs. sensory: not able to assess. Gait not tested. Objective - Vital Signs/Intake and Output Vital Signs (last 24 hours): Temp Pulse Resp BP Pulse Ox 101.2 F H 78 16 184/87 H 100 08/15/18 12:00 08/15/18 12:00 08/15/18 12:00 08/15/18 12:00 08/15/18 12:00 Intake and Output: 08/15/18 08/15/18 06:59 18:59 Intake Total 1832 788 Output Total 700 Balance 1132 788 - Medications Medications: Current Medications Acetaminophen (Tylenol 325mg Tab) 650 mg PO Q6 PRN PRN Reason: Fever >100.4 F Last Admin: 08/05/18 05:35 Dose: 650 mg Acetaminophen (Tylenol 650 Mg Supp) 650 mg [place] Q6 PRN PRN Reason: Temperature Last Admin: 08/14/18 15:56 Dose: 650 mg Albuterol/Ipratropium (Duoneb 3 Mg/0.5 Mg (3 Ml) Ud) 3 ml INH RQ6 PRN PRN Reason: Shortness of Breath Last Admin: 08/12/18 13:52 Dose: 3 ml Amlodipine Besylate (Norvasc) 10 mg PO DAILY [facility] Last Admin: 08/15/18 08:23 Dose: 10 mg Aspirin (Ecotrin) 325 mg PO DAILY [facility] Last Admin: 08/11/18 08:58 Dose: Not Given Atorvastatin Calcium (Lipitor) 10 mg PO HS [facility] Last Admin: 08/14/18 21:01 Dose: 10 mg Carvedilol (Coreg) 25 mg PO Q12 [facility] Dextrose (Dextrose 50% Inj) 0 ml IV STAT PRN; Protocol PRN Reason: Hypoglycemia Protocol Dextrose (Glutose 15) 0 gm PO ONCE PRN; Protocol PRN Reason: Hypoglycemia Protocol Divalproex Sodium (Depakote Er(Once Daily)) 1,250 mg PO HS [facility] Last Admin: 08/14/18 21:56 Dose: 1,250 mg Enalaprilat (Vasotec) 2.5 mg IVP Q6H [facility] Last Admin: 08/15/18 06:58 Dose: 2.5 mg Enoxaparin Sodium (Lovenox) 40 mg SC DAILY [facility]; Protocol Last Admin: 08/15/18 08:23 Dose: 40 mg Escitalopram Oxalate (Lexapro) 10 mg PO HS [facility] Last Admin: 08/14/18 21:01 Dose: 10 mg Fluticasone Propionate (Flonase) 2 spr ANIKA DAILY [facility] Last Admin: 08/15/18 08:22 Dose: Not Given Glucagon (Glucagen Diagnostic Kit) 0 mg IM STAT PRN; Protocol PRN Reason: Hypoglycemia Protocol Haloperidol Lactate (Haldol) 5 mg IVP Q8 PRN PRN Reason: Agitation Last Admin: 08/13/18 09:45 Dose: 5 mg Hydralazine HCl (Apresoline) 10 mg PO QID [facility] Last Admin: 08/15/18 11:46 Dose: 10 mg Levetiracetam 1,000 mg/ Sodium (Chloride) 110 mls @ 110 mls/hr IVPB Q12@0300,1500 [facility] Last Admin: 08/15/18 02:06 Dose: 110 mls/hr Ceftriaxone Sodium 2 gm/ (Sodium Chloride) 100 mls @ 100 mls/hr IVPB Q12 [facility]; Protocol Last Admin: 08/15/18 08:24 Dose: 100 mls/hr Ibuprofen (Motrin Tab) 600 mg PO Q6 PRN PRN Reason: Fever >100.4 F Last Admin: 08/15/18 07:03 Dose: 600 mg Insulin Detemir (Levemir) 20 units SC HS [facility] Last Admin: 08/14/18 21:08 Dose: 20 units Insulin Human Lispro (Humalog) 0 units SC Q6 [facility]; Protocol Last Admin: 08/15/18 11:46 Dose: 4 units Lactulose (Enulose) 20 gm PO Q12 PRN PRN Reason: Constipation Last Admin: 08/15/18 09:54 Dose: 20 gm Levothyroxine Sodium (Synthroid) 50 mcg PO DAILY@0630 [facility] Last Admin: 08/15/18 06:38 Dose: 50 mcg Lorazepam (Ativan) 2 mg IVP Q6 PRN PRN Reason: Agitation Last Admin: 08/14/18 04:09 Dose: 2 mg Losartan Potassium (Cozaar) 100 mg PO DAILY [facility] Last Admin: 08/15/18 08:22 Dose: 100 mg Morphine Sulfate (Morphine) 4 mg IVP Q4H PRN PRN Reason: Agitation Last Admin: 08/14/18 07:48 Dose: 4 mg Multivitamins/Minerals (Therapeutic-M Tab) 1 tab PO DAILY [facility] Last Admin: 08/11/18 09:03 Dose: Not Given Pantoprazole Sodium (Protonix Ec Tab) 20 mg PO DAILY [facility] Last Admin: 08/11/18 09:03 Dose: Not Given Pantoprazole Sodium (Protonix Inj) 40 mg IVP DAILY [facility] Last Admin: 08/15/18 08:24 Dose: 40 mg Risperidone (Risperidone Odt 0.25mg) 0.25 mg PO BID [facility] Sitagliptin Phosphate (Januvia) 100 mg PO HS [facility] Last Admin: 08/14/18 21:01 Dose: 100 mg - Labs Labs: 08/15/18 05:15 08/15/18 05:15 PT 12.2 Seconds (9.8-13.1) 08/04/18 00:30 INR 1.1 08/04/18 00:30 APTT 31.5 Seconds (25.6-37.1) 08/02/18 22:20 Assessment and Plan - Assessment and Plan (Free Text) Assessment: MRI BRain without contrast: no stroke noted. A/p: 62 yr old woman with encephalopathy, possible psychosis, who now has normal MRI Brain. Repeat EEG pending. Plan: 1. EEG one hour Thank you Dr. Corona
[2018-08-15] MEDS: RISPERIDONE 0.25 MG ODT PO SCH (16:16)
--- NOTE | 2018-08-15 16:53 | RAD ---
Date of service: 08/15/2018 PROCEDURE: CHEST RADIOGRAPH, 1 VIEW HISTORY: Intubated COMPARISON: Yesterday FINDINGS: LUNGS: No new infiltrate is seen. Endotracheal tube and NG tube are in good position. PLEURA: No pneumothorax or pleural fluid seen. CARDIOVASCULAR: Positive aortic atherosclerotic calcification present. Otherwise stable heart and vasculature. OSSEOUS STRUCTURES: No significant abnormalities. VISUALIZED UPPER ABDOMEN: Normal. OTHER FINDINGS: None. IMPRESSION: Status post intubation. No new infiltrate.
--- NOTE | 2018-08-15 18:51 | PN ---
DATE: 08/10/2018 LOCATION: ICU, bed #431. The patient is seen and evaluated at the bedside. Past medical, surgical and social, family history reviewed. Events since admission noted. HISTORY OF PRESENT ILLNESS: A 62-year-old female from a half-way with medical history significant for hypertension, diabetes, hypothyroidism, gastroesophageal reflux disease and schizophrenia admitted on 08/02/2018 for sepsis due to pneumonia, status post code blue, resuscitated with epinephrine, fluid support and bicarbonate. Noted seizure in EEG; on Keppra. Febrile, off antibiotics. Repeat cultures done as per ID consult. Overnight on AC/PRVC, rhythm of 14, tidal volume of 450, FIO2 50%, PEEP of 5, observed rate 18, observed tidal volume of 400-450. Minute ventilation 5.6 L, oxygen sat saturation 100%. Peak airway pressure 18, end-tidal CO2 22, sedated on Diprivan drip. PHYSICAL EXAMINATION: VITAL SIGNS: This morning; temperature 102.3, heart rate 72, telemetry sinus rhythm, blood pressure 188/76. Intake 3942, output 2100, positive balance 1842. Weight 196 pounds. HEAD, EYES, EARS, NOSE AND THROAT: Pupils are 3 mm reactive. Corneal reflex present. Conjunctival reflex present. Gag reflex present. Endotracheal tube with minimal secretions. CHEST: Bilateral breath sounds, clear to auscultation anteriorly and laterally. HEART: Rhythm regular. S1, S2 normal intensity. No S3, S4 or gallop. No audible murmur. ABDOMEN: Bowel sounds present. Soft. Liver and spleen not palpable. Bladder not distended. EXTREMITIES: Trace edema. DP palpable. SKIN: Without rash. NEUROLOGIC: Off sedation, minimal response to painful stimuli. CURRENT MEDICATIONS: Tylenol 650 every 6 hours p.r.n., albuterol/Atrovent inhalation 3 mL via nebulizer every 6 hours, Norvasc 10 mg p.o. daily, Ecotrin 325 mg daily, Lipitor 10 mg p.o. at bedtime, Coreg 12.5 mg every 12 hours, ceftriaxone 2 gm IV every 12 hours, Depakote 1250 mg daily, Vasotec 2.5 mg IV every 6 hours, Lovenox 40 subcu daily, Lexapro 10 mg p.o. daily, Flonase 2 sprays to both nostrils daily, Haldol 5 mg IV every 8 hours p.r.n. for agitation, hydralazine 10 mg p.o. q.i.d., Motrin 600 mg p.o. every 6 hours p.r.n., Levemir 20 units subcu at bedtime, lactulose 20 gm p.o. every 12 hours p.r.n., levetiracetam 1000 mg at 110 mL every 12 hours, Synthroid 50 mcg daily, Ativan 2 mg IV every 6 hours p.r.n., Cozaar 100 mg p.o. daily, morphine sulfate 4 mg IV every 4 p.r.n. for agitation, Protonix 40 IV daily, Risperdal 0.25 mg p.o. NG b.i.d., Januvia 100 mg p.o. at bedtime. LABORATORY DATA : WBC 6.6, hemoglobin 9.4, hematocrit 29.3, platelet count 535. PT 12.2, INR 1.1. ABG, pH of 7.50, pCO2 of 40, pO2 of 145, oxygen saturation 99.2 on AC 14, 450, 50%, PEEP of 5. SMA-7; sodium 151, potassium 3, chloride of 112, CO2 29, blood urea nitrogen 32, creatinine 1.4, random glucose 242, calcium 9.8, total bilirubin 0.2, AST 36, ALT 21, alkaline phosphatase 112, total protein 7.7, albumin 3.7. Urinalysis; leukocyte esterase negative. Valproic acid level less than 10, cold agglutinins negative. Serology; QuantiFERON TB test indeterminate. Microbiology, sputum culture normal dolores. Blood culture, no growth. Urine culture, no growth. Chest x-ray, endotracheal tube in place, no pneumothorax, no pleural effusion. MRI of brain no acute intracranial hemorrhage; minimal chronic periventricular white matter ischemic changes with a few tiny chronic-appearing lacunar type infarcts scattered about the deep and subcortical white matter in both cerebral hemispheres, moderate to generalized volume loss. IMPRESSION AND PLAN: 1. Neurologic: Status post brief cardiopulmonary arrest; suspected anoxic brain injury. EEG showed seizure; remains seizure free on levetiracetam. Suspected encephalitis; however, MRI does not show any evidence suggestive. Acyclovir discontinued. Appreciate neurology followup. 2. Pulmonary: Intubated on mechanical ventilation. The patient's mental status still remains poor. To protect the airway, tried spontaneous breathing trial, failed. Continue current setting. Reduce FIO2 to 40%. Continue bronchodilator. 3. Cardiovascular: Hypertension, remains labile. Continue Cozaar, hydralazine 10 mg p.o. q.i.d., Vasotec 2.5 mg IV every 6 hours, maintain systolic pressure 140 or below. 4. Infectious Disease: Remains febrile. Cultures remain negative. Leukocytosis reduced. CT abdomen and pelvis pending to evaluate any intraabdominal source of infection. Septic workup repeated. 5. Renal: Hypernatremia maintain IV hydration. Hypokalemia, supplement potassium. 6. Endocrine. Diabetes mellitus type 2. Continue Januvia, Accu-Chek with regular insulin coverage, Levemir at 20 units subcutaneous at bedtime. Maintain blood sugar below 180 mg. 7. Psychiatry: Seen by Psychiatry consult. Recommended risperidone 0.25 mg b.i.d. 8. Keep head of bed 30 degrees up. OG-tube in place. Ray in place to maintain adequate intake and output. DVT prophylaxis, GI prophylaxis. Kartik Pettit MD
[2018-08-15] MEDS: Divalproex 250 mg ER (ONCE DAILY formulation) PO SCH (21:12)
[2018-08-15] MEDS ORDERED: Insulin Detemir 100 Units/ml Inj SC SCH (22:00)
[2018-08-15] MEDS: Acetaminophen 650mg/20.3ml solution UD PO PRN (23:42)
[2018-08-16 00:38] LABS: BLOOD UREA NITROGEN 23 mg/dl (7-17); CALCIUM 9.9 mg/dL (8.4-10.2); GFR NON-AFRICAN AMERICAN > 60
[2018-08-16] MEDS ORDERED: Potassium Chloride 20 mEq 100 ML IVPB ONE (02:24)
[2018-08-16] MEDS: levETIRAcetam 1,000 MG in Sodium Chloride 0.9% 100 ML IVPB SCH ×2 (02:48→15:55)
[2018-08-16] MEDS: Enalaprilat 2.5 MG/2 ML IVP SCH ×2 (02:50→07:13)
[2018-08-16 03:54] LABS: ABG ALLEN TEST YES; ARTERIAL BLOOD GAS HCO3 29.5 mmol/L (21-28); ARTERIAL BLOOD GAS HEMOGLOBIN 9.8 g/dL (11.7-17.4); ARTERIAL BLOOD GAS O2 CAPACITY 13.7 mL/dL (16-24); ARTERIAL BLOOD GAS O2 CONTENT 13.5 ML/dL (15-23); ARTERIAL BLOOD GAS O2 SAT 98.9 % (95-98); ARTERIAL BLOOD GAS PCO2 39 mm/Hg (35-45); ARTERIAL BLOOD GAS PH 7.49 (7.35-7.45); ARTERIAL BLOOD GAS PO2 108 mm/Hg (80-100); ARTERIAL BLOOD GAS TCO2 30.9 mmol/L (22-28)
[2018-08-16 07:07] LABS: BASO % 0.3 % (0.0-2.0); EOS % 0.2 % (0.0-4.0); HEMOGLOBIN 9.8 g/dL (12.0-16.0); LYMPH # 2.3 K/uL (1.0-4.3); LYMPH % 33.7 % (20.0-40.0); MEAN CELL VOLUME 80.4 fl (81.0-99.0); MEAN CORPUSCULAR HEMOGLOBIN 26.3 pg (27.0-31.0); MEAN CORPUSCULAR HGB CONC 32.7 g/dL (33.0-37.0); MEAN PLATELET VOLUME 8.6 fl (7.2-11.7); MONO # 0.6 K/uL (0.0-0.8); MONO % 8.6 % (0.0-10.0); NEUT % 57.2 % (50.0-75.0); NRBC % 0.1 % (0.0-0.0); RBC 3.74 Mil/uL (3.80-5.20); RED CELL DISTRIBUTION WIDTH 15.8 % (11.5-14.5); WHITE BLOOD COUNT 6.9 K/uL (4.8-10.8)
[2018-08-16] MEDS: Levothyroxine 50 MCG TAB PO SCH (07:13)
[2018-08-16] MEDS: Insulin Lispro (humaLOG) 100 Units/ml Inj SC SCH ×4 (07:16→21:44)
[2018-08-16 07:37] LABS: ALBUMIN 3.9 g/dL (3.5-5.0); ALT/SGPT 26 U/L (9-52); AST/SGOT 29 U/L (14-36); BLOOD UREA NITROGEN 22 mg/dl (7-17); GFR NON-AFRICAN AMERICAN 56
[2018-08-16] MEDS: RISPERIDONE 0.25 MG ODT PO SCH ×2 (08:39→17:50)
[2018-08-16] MEDS ORDERED: Iohexol 240 (50 ml) PO ONE (08:41)
[2018-08-16] MEDS: cefTRIAXone 2 GM in Sodium Chloride 0.9% 100 ML IVPB SCH ×2 (08:41→21:47)
--- NOTE | 2018-08-16 09:11 | RAD ---
Date of service: 08/16/2018 PROCEDURE: CHEST RADIOGRAPH, 1 VIEW HISTORY: Pt has ETT, daily ETT placement confirmation COMPARISON: Yesterday FINDINGS: LUNGS: Clear. PLEURA: No pneumothorax or pleural fluid seen. CARDIOVASCULAR: Mild aortic atherosclerotic calcification present. Normal. OSSEOUS STRUCTURES: No significant abnormalities. VISUALIZED UPPER ABDOMEN: Normal. OTHER FINDINGS: Endotracheal tube and NG tube are unchanged. IMPRESSION: Status post intubation. No new infiltrate or CHF.
[2018-08-16] MEDS: Dexmedetomidine Hydrochloride 400 MCG in Sodium Chloride 0.9% 96 ML IV ONE ×2 (09:43→19:49)
--- NOTE | 2018-08-16 10:57 | CP.PCM.PN ---
Subjective - Date & Time of Evaluation Date of Evaluation: 08/16/18 Time of Evaluation: 10:00 - Subjective Subjective: Pt remains febrile Intubated on Mech Vent Sedated on Precedex restless at times awake however does not interact, does not follow commands tolerating tube feeding Objective - Vital Signs/Intake and Output Vital Signs (last 24 hours): Temp Pulse Resp BP Pulse Ox 101.9 F H 77 16 169/71 H 100 08/16/18 04:00 08/16/18 08:40 08/16/18 06:00 08/16/18 08:40 08/16/18 06:00 Intake and Output: 08/16/18 08/16/18 06:59 18:59 Intake Total 1820 0 Output Total 3000 Balance -1180 0 - Medications Medications: Current Medications Acetaminophen (Tylenol 325mg Tab) 650 mg PO Q6 PRN PRN Reason: Fever >100.4 F Last Admin: 08/05/18 05:35 Dose: 650 mg Acetaminophen (Tylenol 650mg/20.3ml Solution Ud) 650 mg PO Q6 PRN PRN Reason: Temperature Last Admin: 08/15/18 23:42 Dose: 650 mg Albuterol/Ipratropium (Duoneb 3 Mg/0.5 Mg (3 Ml) Ud) 3 ml INH RQ6 [facility] Amlodipine Besylate (Norvasc) 10 mg PO DAILY [facility] Last Admin: 08/15/18 08:23 Dose: 10 mg Atorvastatin Calcium (Lipitor) 10 mg PO HS [facility] Last Admin: 08/15/18 21:13 Dose: 10 mg Carvedilol (Coreg) 25 mg PO Q12 [facility] Last Admin: 08/16/18 08:40 Dose: 25 mg Dextrose (Dextrose 50% Inj) 0 ml IV STAT PRN; Protocol PRN Reason: Hypoglycemia Protocol Dextrose (Glutose 15) 0 gm PO ONCE PRN; Protocol PRN Reason: Hypoglycemia Protocol Divalproex Sodium (Depakote Er(Once Daily)) 1,250 mg PO HS [facility] Last Admin: 08/15/18 21:12 Dose: 1,250 mg Enoxaparin Sodium (Lovenox) 40 mg SC DAILY [facility]; Protocol Last Admin: 08/15/18 08:23 Dose: 40 mg Escitalopram Oxalate (Lexapro) 10 mg PO HS [facility] Last Admin: 08/15/18 21:13 Dose: 10 mg Fluticasone Propionate (Flonase) 2 spr ANIKA DAILY [facility] Last Admin: 08/16/18 08:41 Dose: 2 spr Glucagon (Glucagen Diagnostic Kit) 0 mg IM STAT PRN; Protocol PRN Reason: Hypoglycemia Protocol Haloperidol Lactate (Haldol) 5 mg IVP Q8 PRN PRN Reason: Agitation Last Admin: 08/13/18 09:45 Dose: 5 mg Hydralazine HCl (Apresoline) 10 mg PO QID [facility] Last Admin: 08/16/18 08:40 Dose: 10 mg Levetiracetam 1,000 mg/ Sodium (Chloride) 110 mls @ 110 mls/hr IVPB Q12@0300,1500 [facility] Last Admin: 08/16/18 02:48 Dose: 110 mls/hr Ceftriaxone Sodium 2 gm/ (Sodium Chloride) 100 mls @ 100 mls/hr IVPB Q12 [facility]; Protocol Last Admin: 08/16/18 08:41 Dose: 100 mls/hr Dexmedetomidine HCl 400 mcg/ (Sodium Chloride) 100 mls @ 4.45 mls/hr IV .[id number]; Protocol Stop: 08/17/18 07:01 Last Titration: 08/16/18 10:37 Dose: 0.3 mcg/kg/hr, 6.67 mls/hr Ibuprofen (Motrin Tab) 600 mg PO Q6 PRN PRN Reason: Fever >100.4 F Last Admin: 08/16/18 02:47 Dose: 600 mg Insulin Detemir (Levemir) 25 units SC HS [facility] Last Admin: 08/15/18 21:39 Dose: 25 units Insulin Human Lispro (Humalog) 0 units SC Q6 [facility]; Protocol Last Admin: 08/16/18 07:16 Dose: 8 units Lactulose (Enulose) 20 gm PO Q12 PRN PRN Reason: Constipation Last Admin: 08/16/18 08:39 Dose: 20 gm Levothyroxine Sodium (Synthroid) 50 mcg PO DAILY@0630 [facility] Last Admin: 08/16/18 07:13 Dose: 50 mcg Losartan Potassium (Cozaar) 100 mg PO DAILY [facility] Last Admin: 08/16/18 08:39 Dose: 100 mg Multivitamins/Minerals (Therapeutic-M Tab) 1 tab PO DAILY [facility] Last Admin: 08/11/18 09:03 Dose: Not Given Pantoprazole Sodium (Protonix Inj) 40 mg IVP DAILY [facility] Last Admin: 08/16/18 08:41 Dose: 40 mg Risperidone (Risperidone Odt 0.25mg) 0.25 mg PO BID [facility] Last Admin: 08/16/18 08:39 Dose: 0.25 mg Sitagliptin Phosphate (Januvia) 100 mg PO HS [facility] Last Admin: 08/15/18 21:13 Dose: 100 mg - Labs Labs: 08/16/18 05:30 08/16/18 05:30 PT 12.2 Seconds (9.8-13.1) 08/04/18 00:30 INR 1.1 08/04/18 00:30 APTT 31.5 Seconds (25.6-37.1) 08/02/18 22:20 - Constitutional Appears: Chronically Ill, Other (Intubated on mech Vent) restless at times - Head Exam Head Exam: NORMAL INSPECTION, NORMOCEPHALIC - Eye Exam Eye Exam: PERRL - ENT Exam ENT Exam: Mucous Membranes Dry, Normal External Ear Exam Additional comments: OGT in place - Neck Exam Neck Exam: absent: Meningismus - Respiratory Exam Respiratory Exam: Rales, Rhonchi, NORMAL BREATHING PATTERN. absent: Wheezes - Cardiovascular Exam Cardiovascular Exam: REGULAR RHYTHM, +S1, +S2 - GI/Abdominal Exam GI & Abdominal Exam: Soft, Normal Bowel Sounds - Extremities Exam Extremities Exam: Normal Capillary Refill - Neurological Exam Additional comments: Sedated eyes open, awake, moves extremities but no meaningful interaction does not follow command - Skin Skin Exam: Dry, Normal Color, Warm Assessment and Plan - Assessment and Plan (Free Text) Assessment: 62 yo female from a half-way, with hx of DM II, schizophrenia and HTN; initially admitted for sepsis and pneumonia. Initial labs were significant for leukocytosis with bandemia; CXR showed atelectasis vs infiltrate and pt was started on vancomycin, zosyn and zithromax IV. During the admission, pt was found to be bradycardic and became unresponsive. Code Blue was called for suspected Pulseless Electrical Activity; compressions done ,was achieved after 3 rounds of epinephrine. She was then transferred to ICU. When weaned off sedation, mental status changes appreciated per family when compared to her baseline. Neurology was consulted. MRI : negative for acute CVA. 1. s/p CardioRespiratory Arrest -s/p Code Blue ( received 3 doses of epinephrine) [facility]450[facility]5/40% -EKG wnl and troponin neg x2 2. Localization-related (focal) (partial) symptomatic epilepsy -as per neuro due to pts infection and antipsychotic lowered seizure threshold; appear to have resolved now -cont Keppra 1000 mg Q12 - Clozapine discontinued - rpt EEG as per Dr Corona 3. AMS due to Encephalopathy - unclear etiology empirically treated with IV Acyclovir for poss Encephalitis Cutures negative MRI of Brain - no signs of Stroke nor Encephalitis tx underlying infection unclear if AMS due to Psych dis 4. 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 Persistent Fever d/c abx accdg to Dr Castorena-rec LP and CT of abdomen Discussed treatment plan with family - would like to do CT of abd first before consenting to the LP CT of abd with contrast - if negative will do LP ( ASA and Lovenox on hold , will consult anesthesia ) 6. Anasarca -Likely secondary to fluid overloaded; improving -IV lasix given -Strict I&Os -Renal function stable 7.Hypothyrodism -Chronic, uncontrolled -Levothyroxine 50mcg daily - TSH sl low - dose of Levothyroxine decreased 8. DM tpe II , with Insulin use -Chronic -Metformin on hold -Increase Levemir to 30 units q hs -Insulin coverage scale and hypoglycemia protocol -Hypoglycemia protocol 9. HTN uncontrolled - cont Lasix, Amlodipine, Coreg and Losartan - added Hydralazine 10. Schizophrenia -Chronic -Home meds held for now -cont Depakote - Psych consulted- rec Lexapro and Risperdal 11. Hypernatremia hold Lasix for now 12. Hypokalemia - replace with KCl DVT prophylaxis -Lovenox SQ
[2018-08-16] MEDS: Acetaminophen 650mg/20.3ml solution UD PO PRN (12:30)
[2018-08-16] MEDS: Albuterol-Ipratrop 3 mg / 0.5 (3 ml) UD INH SCH ×2 (13:00→19:45)
--- NOTE | 2018-08-16 13:19 | CP.PCM.PN ---
Subjective - Date & Time of Evaluation Date of Evaluation: 08/16/18 Time of Evaluation: 08:00 - Subjective Subjective: FEVER PERSISTS ALL CULTURES NEGATIVE GOING FOR CT ABD/PELVIS LP ALSO RECOMMENDED Objective - Vital Signs/Intake and Output Vital Signs (last 24 hours): Temp Pulse Resp BP Pulse Ox 101.9 F H 66 16 189/76 H 100 08/16/18 04:00 08/16/18 12:05 08/16/18 06:00 08/16/18 12:05 08/16/18 06:00 Intake and Output: 08/16/18 08/16/18 06:59 18:59 Intake Total 1820 4 Output Total 3000 Balance -1180 4 - Medications Medications: Current Medications Acetaminophen (Tylenol 325mg Tab) 650 mg PO Q6 PRN PRN Reason: Fever >100.4 F Last Admin: 08/05/18 05:35 Dose: 650 mg Acetaminophen (Tylenol 650mg/20.3ml Solution Ud) 650 mg PO Q6 PRN PRN Reason: Temperature Last Admin: 08/15/18 23:42 Dose: 650 mg Albuterol/Ipratropium (Duoneb 3 Mg/0.5 Mg (3 Ml) Ud) 3 ml INH RQ6 LESLIE Last Admin: 08/16/18 13:00 Dose: 3 ml Amlodipine Besylate (Norvasc) 10 mg PO DAILY LESLIE Last Admin: 08/16/18 12:04 Dose: 10 mg Atorvastatin Calcium (Lipitor) 10 mg PO HS LESLIE Last Admin: 08/15/18 21:13 Dose: 10 mg Carvedilol (Coreg) 25 mg PO Q12 LESLIE Last Admin: 08/16/18 08:40 Dose: 25 mg Dextrose (Dextrose 50% Inj) 0 ml IV STAT PRN; Protocol PRN Reason: Hypoglycemia Protocol Dextrose (Glutose 15) 0 gm PO ONCE PRN; Protocol PRN Reason: Hypoglycemia Protocol Divalproex Sodium (Depakote Er(Once Daily)) 1,250 mg PO HS [facility] Last Admin: 08/15/18 21:12 Dose: 1,250 mg Enoxaparin Sodium (Lovenox) 40 mg SC DAILY LESLIE; Protocol Last Admin: 08/15/18 08:23 Dose: 40 mg Escitalopram Oxalate (Lexapro) 10 mg PO HS [facility] Last Admin: 08/15/18 21:13 Dose: 10 mg Glucagon (Glucagen Diagnostic Kit) 0 mg IM STAT PRN; Protocol PRN Reason: Hypoglycemia Protocol Haloperidol Lactate (Haldol) 5 mg IVP Q8 PRN PRN Reason: Agitation Last Admin: 08/13/18 09:45 Dose: 5 mg Hydralazine HCl (Apresoline) 10 mg PO QID [facility] Last Admin: 08/16/18 12:05 Dose: 10 mg Levetiracetam 1,000 mg/ Sodium (Chloride) 110 mls @ 110 mls/hr IVPB Q12@0300,1500 [facility] Last Admin: 08/16/18 02:48 Dose: 110 mls/hr Ceftriaxone Sodium 2 gm/ (Sodium Chloride) 100 mls @ 100 mls/hr IVPB Q12 [facility]; Protocol Last Admin: 08/16/18 08:41 Dose: 100 mls/hr Dexmedetomidine HCl 400 mcg/ (Sodium Chloride) 100 mls @ 4.45 mls/hr IV .[id number]; Protocol Stop: 08/17/18 07:01 Last Titration: 08/16/18 13:12 Dose: 0.5 mcg/kg/hr, 11.11 mls/hr Ibuprofen (Motrin Tab) 600 mg PO Q6 PRN PRN Reason: Fever >100.4 F Last Admin: 08/16/18 02:47 Dose: 600 mg Insulin Detemir (Levemir) 30 units SC HS [facility] Insulin Human Lispro (Humalog) 0 units SC Q6 [facility]; Protocol Last Admin: 08/16/18 11:41 Dose: 4 units Lactulose (Enulose) 20 gm PO Q12 PRN PRN Reason: Constipation Last Admin: 08/16/18 08:39 Dose: 20 gm Levothyroxine Sodium (Synthroid) 50 mcg PO DAILY@0630 [facility] Last Admin: 08/16/18 07:13 Dose: 50 mcg Losartan Potassium (Cozaar) 100 mg PO DAILY [facility] Last Admin: 08/16/18 08:39 Dose: 100 mg Multivitamins/Minerals (Therapeutic-M Tab) 1 tab PO DAILY [facility] Last Admin: 08/11/18 09:03 Dose: Not Given Pantoprazole Sodium (Protonix Inj) 40 mg IVP DAILY [facility] Last Admin: 08/16/18 08:41 Dose: 40 mg Risperidone (Risperidone Odt 0.25mg) 0.25 mg PO BID [facility] Last Admin: 08/16/18 08:39 Dose: 0.25 mg Sitagliptin Phosphate (Januvia) 100 mg PO HS [facility] Last Admin: 08/15/18 21:13 Dose: 100 mg - Labs Labs: 08/16/18 05:30 08/16/18 05:30 PT 12.2 Seconds (9.8-13.1) 08/04/18 00:30 INR 1.1 08/04/18 00:30 APTT 31.5 Seconds (25.6-37.1) 08/02/18 22:20 - Constitutional Appears: Confused, Chronically Ill - Head Exam Head Exam: NORMOCEPHALIC - Eye Exam Eye Exam: absent: Scleral icterus - ENT Exam ENT Exam: Mucous Membranes Dry - Neck Exam Neck Exam: absent: Thyromegaly - Respiratory Exam Respiratory Exam: Decreased Breath Sounds - Cardiovascular Exam Cardiovascular Exam: REGULAR RHYTHM - GI/Abdominal Exam GI & Abdominal Exam: Distended - Rectal Exam Rectal Exam: Deferred - Exam Exam: NORMAL INSPECTION - Extremities Exam Extremities Exam: absent: Pedal Edema - Back Exam Back Exam: absent: CVA tenderness (L), CVA tenderness (R) - Neurological Exam Neurological Exam: Altered - Psychiatric Exam Psychiatric exam: Depressed - Skin Skin Exam: Dry Assessment and Plan (1) Pneumonia Status: Acute (2) Severe sepsis Status: Acute - Assessment and Plan (Free Text) Assessment: FEVER PERSISTS- SOURCE UNCLEAR LATEST CXR SHOWS CLEARING FOR CT ABD/ PELVIS CONSIDER LP NEURO FOLLOW UP- ? NEUROLEPTIC MALIGNANT SYNDROME
[2018-08-16] MEDS ORDERED: Sodium Chloride 0.9% 50 ML IV ONE (14:10)
[2018-08-16] MEDS ORDERED: Iohexol 300 100 ML IJ ONE (14:10)
[2018-08-16 15:56] LABS: T4 5.66 ug/dl (5.5-11.0)
--- NOTE | 2018-08-16 16:02 | CT ---
Date of service: 08/16/2018 PROCEDURE: CT Abdomen and Pelvis with contrast HISTORY: fever ? etiology r/o abd abscess COMPARISON: Chest x-ray same day TECHNIQUE: Contrast dose: 90 mL Radiation dose: Total exam DLP = 880.68 mGy-cm. This CT exam was performed using one or more of the following dose reduction techniques: Automated exposure control, adjustment of the mA and/or kV according to patient size, and/or use of iterative reconstruction technique. FINDINGS: LOWER THORAX: Minor subsegmental atelectasis is seen in the right lower lobe. Additional mild dependent atelectasis is seen posteriorly in the lower lobes and lingula. No segmental infiltrate is seen at the lung bases. No pleural effusion is seen. NG tube is noted within the stomach. Distal esophagus is unremarkable. No pericardial effusion is noted. LIVER: Liver is diffusely fatty infiltrated with some areas of focal fatty sparing. No intrahepatic ductal dilatation or hepatic mass is noted. GALLBLADDER AND BILE DUCTS: Unremarkable. PANCREAS: Unremarkable. No gross lesion or ductal dilatation. SPLEEN: Unremarkable. ADRENALS: Adrenal glands are slightly nodular in contour which may suggest an element of mild hyperplasia but without focal mass. KIDNEYS AND URETERS: Mild nonspecific perinephric changes are seen adjacent to the kidneys. No gross hydronephrosis is identified. A few small renal cysts are noted on the right. No renal calculus is identified in either kidney. VASCULATURE: No appreciable aortic aneurysm. Scattered atherosclerotic changes of the aorta and aortoiliac region with additional atherosclerotic change of the celiac and SMA. BOWEL: No colonic wall thickening or pericolonic inflammatory changes are noted to suggest colitis. Small bowel is normal in caliber without fold thickening or dilatation to suggest obstruction. NG tube is identified with its tip in the stomach. Stomach is decompressed limiting evaluation. Duodenum is unremarkable. APPENDIX: Appendix is not well seen, although no right lower quadrant inflammatory process is seen. Terminal ileum is unremarkable. PERITONEUM: Unremarkable. No free fluid. No free air. LYMPH NODES: Unremarkable. No enlarged lymph nodes. BLADDER: Ray catheter is seen in the bladder. Bladder is decompressed limiting evaluation. REPRODUCTIVE: Uterus is retroverted but normal in size. No adnexal masses are seen. BONES: Degenerative changes are seen in the spine without compression fracture or malalignment. There is no CT scan evidence of discitis or osteomyelitis. OTHER FINDINGS: Bony pelvis is intact. No subcutaneous collections are seen. IMPRESSION: No evidence of focal fluid collection in the abdomen to suggest abscess. Nonspecific perinephric changes adjacent to the kidneys. Correlation with laboratory values to exclude urinary tract infection would be excluded. Small right renal cyst. NG tube in the stomach. Stomach is decompressed limiting evaluation. Fatty infiltration of the liver. No evidence of bowel obstruction or colitis.
[2018-08-16 16:10] LABS: T3 0.458 nmol/L (1.49-2.60)
--- NOTE | 2018-08-16 19:45 | CP.CCUPN ---
CCU Subjective - Physician Review Subjective (Free Text): PAtient intubated, not responsive, Son and daughter at bedside. 08/16/18 19:41 CCU Objective - Vital Signs / Intake & Output Vital Signs (Last 4 hours): Vital Signs Temp Pulse Resp BP Pulse Ox 08/16/18 17:55 58 L 14 158/72 H 100 08/16/18 17:50 59 L 156/71 H 08/16/18 16:00 98.7 F 62 17 161/76 H 100 Intake and Output (Last 8hrs): Intake & Output 08/16/18 08/16/18 08/16/18 06:59 14:59 22:59 Intake Total 1330 604 0 Output Total 3000 900 900 Balance -9266 -296 900 Intake: IV 4 0 Intake, Piggyback 200 100 Tube Feeding 480 Free Water Flush 650 500 Output: Urine 3000 900 900 Urethral (Ray) 3000 900 900 Other: # Bowel Movements 0 - Physical Exam Head: Positive for: Normocephalic Pupils: Positive for: Sluggish Extroacular Muscles: Positive for: EOMI Conjunctiva: Positive for: Normal Ears: Positive for: Normal Mouth: Positive for: Moist Mucous Membranes (ETT tube in place, yellow secretions, OG tube) Nose (External): Positive for: Other Neck: Positive for: Normal Range of Motion Respiratory/Chest: Positive for: Good Air Exchange, Rhonchi, Other (Mechanical ventilation). Negative for: Rales Cardiovascular: Positive for: Regular Rate and Rhythm. Negative for: Murmurs Abdomen: Positive for: Distention, Normal Bowel Sounds Upper Extremity: Positive for: Edema (trace pitting in upper extremities bl), NORMAL PULSES, Capillary Refill < 2s Lower Extremity: Positive for: NORMAL PULSES, Capillary Refill < 2 s. Negative for: Edema Neurological: Positive for: Other (Eyes open spotnaneously, non verbal, withdraws from pain) Skin: Positive for: Warm, Dry, Rashes Psychiatric: Positive for: Alert (intermittently), Lethargic (improved). Negative for: Oriented x 3, Agitated - Medications Active Medications: Active Medications Generic Name Dose Route Start Last Admin Trade Name Freq PRN Reason Stop Dose Admin Acetaminophen 650 mg 08/03/18 03:33 08/05/18 05:35 Tylenol 325mg Tab PO 650 mg Q6 PRN Administration Fever >100.4 F Acetaminophen 650 mg 08/15/18 22:15 08/16/18 12:30 Tylenol 650mg/20.3ml Solution Ud PO 650 mg Q6 PRN Administration Temperature Albuterol/Ipratropium 3 ml 08/16/18 14:00 08/16/18 13:00 Duoneb 3 Mg/0.5 Mg (3 Ml) Ud INH 3 ml RQ6 LESLIE Administration Amlodipine Besylate 10 mg 08/03/18 09:00 08/16/18 12:04 Norvasc PO 10 mg DAILY LESLIE Administration Atorvastatin Calcium 10 mg 08/03/18 22:00 08/15/18 21:13 Lipitor PO 10 mg HS LESLIE Administration Carvedilol 25 mg 08/15/18 21:00 08/16/18 08:40 Coreg PO 25 mg Q12 LESLIE Administration Dextrose 0 ml 08/03/18 03:35 Dextrose 50% Inj IV STAT PRN Hypoglycemia Protocol Protocol Dextrose 0 gm 08/03/18 03:35 Glutose 15 PO ONCE PRN Hypoglycemia Protocol Protocol Divalproex Sodium 1,250 mg 08/03/18 22:00 08/15/18 21:12 Depakote Er(Once Daily) PO 1,250 mg HS [facility]IE Administration Enoxaparin Sodium 40 mg 08/09/18 09:00 08/15/18 08:23 Lovenox SC 40 mg DAILY [facility]LIE Administration Protocol Escitalopram Oxalate 10 mg 08/03/18 22:00 08/15/18 21:13 Lexapro PO 10 mg HS [facility]LIE Administration Glucagon 0 mg 08/03/18 03:35 Glucagen Diagnostic Kit IM STAT PRN Hypoglycemia Protocol Protocol Haloperidol Lactate 5 mg 08/12/18 13:03 08/13/18 09:45 Haldol IVP 5 mg Q8 PRN Administration Agitation Hydralazine HCl 20 mg 08/16/18 14:00 Apresoline IV Q4H PRN Systolic Blood Pressure Hydralazine HCl 20 mg 08/16/18 17:00 08/16/18 17:50 Apresoline PO 20 mg QID LESLIE Administration Levetiracetam 1,000 mg/ Sodium 110 mls @ 110 mls/hr 08/06/18 15:00 08/16/18 15:55 Chloride IVPB 110 mls/hr Q12@0300,1500 [facility] Administration Ceftriaxone Sodium 2 gm/ 100 mls @ 100 mls/hr 08/15/18 09:00 08/16/18 08:41 Sodium Chloride IVPB 100 mls/hr Q12 [facility] Administration Protocol Dexmedetomidine HCl 400 mcg/ 100 mls @ 4.45 mls/hr 08/16/18 08:33 08/16/18 15:57 Sodium Chloride IV 08/17/18 07:01 0.5 mcg/kg/hr .[id number] ONE 11.11 mls/hr Titration Protocol 0.2 MCG/KG/HR Ibuprofen 600 mg 08/03/18 13:30 08/16/18 02:47 Motrin Tab PO 600 mg Q6 PRN Administration Fever >100.4 F Insulin Detemir 30 units 08/16/18 22:00 Levemir SC HS [facility] Insulin Human Lispro 0 units 08/14/18 12:00 08/16/18 17:51 Humalog SC 6 units Q6 [facility]LIE Administration Protocol Lactulose 20 gm 08/08/18 17:16 08/16/18 08:39 Enulose PO 20 gm Q12 PRN Administration Constipation Levothyroxine Sodium 50 mcg 08/04/18 06:30 08/16/18 07:13 Synthroid PO 50 mcg DAILY@0630 [facility] Administration Losartan Potassium 100 mg 08/10/18 09:00 08/16/18 08:39 Cozaar PO 100 mg DAILY [facility]IE Administration Multivitamins/Minerals 1 tab 08/03/18 09:00 08/11/18 09:03 Therapeutic-M Tab PO Not Given DAILY LESLIE Pantoprazole Sodium 40 mg 08/11/18 09:45 08/16/18 08:41 Protonix Inj IVP 40 mg DAILY [facility] Administration Risperidone 0.25 mg 08/15/18 17:00 08/16/18 17:50 Risperidone Odt 0.25mg PO 0.25 mg BID LESLIE Administration Sitagliptin Phosphate 100 mg 08/03/18 22:00 08/15/18 21:13 Januvia PO 100 mg HS LESLIE Administration - Patient Studies Lab Studies: Microbiology Studies 08/11/18 18:30 Blood Culture - Final Blood NO GROWTH AFTER 5 DAYS Gram Stain - Final TEST NOT PERFORMED 08/11/18 18:20 Blood Culture - Final Blood NO GROWTH AFTER 5 DAYS Gram Stain - Final TEST NOT PERFORMED 08/08/18 08:00 Mycobacterial Culture - Preliminary Other: Please Indicate 08/15/18 10:25 Blood Culture - Preliminary Blood NO GROWTH AFTER 24 HOURS 08/15/18 10:20 Blood Culture - Preliminary Blood NO GROWTH AFTER 24 HOURS 08/15/18 11:20 Gram Stain - Final Trachasp Sputum Culture - Preliminary NORMAL ORAL CHRISTOPHER Lab Studies 08/16/18 08/16/18 08/16/18 Range/Units 15:24 05:30 05:30 WBC 6.9 (4.8-10.8) K/uL RBC 3.74 L (3.80-5.20) Mil/uL Hgb 9.8 L (12.0-16.0) g/dL Hct 30.1 L (34.0-47.0) % MCV 80.4 L (81.0-99.0) fl MCH 26.3 L (27.0-31.0) pg MCHC 32.7 L (33.0-37.0) g/dL RDW 15.8 H (11.5-14.5) % Plt Count 480 H (130-400) K/uL MPV 8.6 (7.2-11.7) fl Neut % (Auto) 57.2 (50.0-75.0) % Lymph % (Auto) 33.7 (20.0-40.0) % [place] % (Auto) 8.6 (0.0-10.0) % Eos % (Auto) 0.2 (0.0-4.0) % Baso % (Auto) 0.3 (0.0-2.0) % Neut # (Auto) 4.0 (1.8-7.0) K/uL Lymph # (Auto) 2.3 (1.0-4.3) K/uL [place] # (Auto) 0.6 (0.0-0.8) K/uL Eos # (Auto) 0.0 (0.0-0.7) K/uL Baso # (Auto) 0.0 (0.0-0.2) K/uL pCO2 (35-45) mm/Hg pO2 (80-100) mm/Hg HCO3 (21-28) mmol/L ABG pH (7.35-7.45) ABG Total CO2 (22-28) mmol/L ABG O2 Saturation (95-98) % ABG O2 Content (15-23) ML/dL ABG Base Excess (-2.0-3.0) mmol/L ABG Hemoglobin (11.7-17.4) g/dL ABG Carboxyhemoglobin (0.5-1.5) % POC ABG HHb (Measured) (0.0-5.0) % ABG Methemoglobin (0.0-3.0) % ABG O2 Capacity (16-24) mL/dL Bridger Test A-a O2 Difference mm/Hg Hgb O2 Saturation (95.0-98.0) % Vent Mode Mechanical Rate FiO2 % Tidal Volume PEEP Sodium 149 H (132-148) mmol/l Potassium 3.7 (3.6-5.0) MMOL/L Chloride 110 H (98-107) mmol/L Carbon Dioxide 29 (22-30) mmol/L Anion Gap 14 (10-20) BUN 22 H (7-17) mg/dl Creatinine 1.0 (0.7-1.2) mg/dl Est GFR ( Amer) > 60 Est GFR (Non-Af Amer) 56 Random Glucose 317 H (65-105) mg/dL Calcium 10.0 (8.4-10.2) mg/dL Total Bilirubin 0.3 (0.2-1.3) mg/dl AST 29 (14-36) U/L ALT 26 (9-52) U/L Alkaline Phosphatase 98 (38-126) U/L Total Protein 8.0 (6.3-8.2) G/DL Albumin 3.9 (3.5-5.0) g/dL Globulin 4.1 H (2.2-3.9) gm/dL Albumin/Globulin Ratio 1.0 (1.0-2.1) Thyroxine (T4) 5.66 (5.5-11.0) ug/dl Total T3 0.458 L (1.49-2.60) nmol/L TSH 3rd Generation 1.11 (0.46-4.68) mIU/ML RPR (NONREACTIVE) 08/16/18 08/15/18 08/14/18 Range/Units 04:00 22:10 20:50 WBC (4.8-10.8) K/uL RBC (3.80-5.20) Mil/uL Hgb (12.0-16.0) g/dL Hct (34.0-47.0) % MCV (81.0-99.0) fl MCH (27.0-31.0) pg MCHC (33.0-37.0) g/dL RDW (11.5-14.5) % Plt Count (130-400) K/uL MPV (7.2-11.7) fl Neut % (Auto) (50.0-75.0) % Lymph % (Auto) (20.0-40.0) % [place] % (Auto) (0.0-10.0) % Eos % (Auto) (0.0-4.0) % Baso % (Auto) (0.0-2.0) % Neut # (Auto) (1.8-7.0) K/uL Lymph # (Auto) (1.0-4.3) K/uL [place] # (Auto) (0.0-0.8) K/uL Eos # (Auto) (0.0-0.7) K/uL Baso # (Auto) (0.0-0.2) K/uL pCO2 39 (35-45) mm/Hg pO2 108 H (80-100) mm/Hg HCO3 29.5 H (21-28) mmol/L ABG pH 7.49 H (7.35-7.45) ABG Total CO2 30.9 H (22-28) mmol/L ABG O2 Saturation 98.9 H (95-98) % ABG O2 Content 13.5 L (15-23) ML/dL ABG Base Excess 5.9 H (-2.0-3.0) mmol/L ABG Hemoglobin 9.8 L (11.7-17.4) g/dL ABG Carboxyhemoglobin 1.3 (0.5-1.5) % POC ABG HHb (Measured) 1.1 (0.0-5.0) % ABG Methemoglobin 1.1 (0.0-3.0) % ABG O2 Capacity 13.7 L (16-24) mL/dL Bridger Test Yes A-a O2 Difference 128.0 mm/Hg Hgb O2 Saturation 96.5 (95.0-98.0) % Vent Mode A/c Mechanical Rate 14 FiO2 40.0 % Tidal Volume 450 PEEP 5 Sodium 149 H (132-148) mmol/l Potassium 3.3 L (3.6-5.0) MMOL/L Chloride 111 H (98-107) mmol/L Carbon Dioxide 30 (22-30) mmol/L Anion Gap 11 (10-20) BUN 23 H (7-17) mg/dl Creatinine 0.9 (0.7-1.2) mg/dl Est GFR ( Amer) > 60 Est GFR (Non-Af Amer) > 60 Random Glucose 248 H (65-105) mg/dL Calcium 9.9 (8.4-10.2) mg/dL Total Bilirubin (0.2-1.3) mg/dl AST (14-36) U/L ALT (9-52) U/L Alkaline Phosphatase (38-126) U/L Total Protein (6.3-8.2) G/DL Albumin (3.5-5.0) g/dL Globulin (2.2-3.9) gm/dL Albumin/Globulin Ratio (1.0-2.1) Thyroxine (T4) (5.5-11.0) ug/dl Total T3 (1.49-2.60) nmol/L TSH 3rd Generation (0.46-4.68) mIU/ML RPR Nonreactive (NONREACTIVE) Laboratory Results - last 24 hr 08/14/18 08/15/18 08/16/18 20:50 22:10 04:00 WBC RBC Hgb Hct MCV MCH MCHC RDW Plt Count MPV Neut % (Auto) Lymph % (Auto) [place] % (Auto) Eos % (Auto) Baso % (Auto) Neut # (Auto) Lymph # (Auto) [place] # (Auto) Eos # (Auto) Baso # (Auto) pCO2 39 pO2 108 H HCO3 29.5 H ABG pH 7.49 H ABG Total CO2 30.9 H ABG O2 Saturation 98.9 H ABG O2 Content 13.5 L ABG Base Excess 5.9 H ABG Hemoglobin 9.8 L ABG Carboxyhemoglobin 1.3 POC ABG HHb (Measured) 1.1 ABG Methemoglobin 1.1 ABG O2 Capacity 13.7 L Bridger Test Yes A-a O2 Difference 128.0 Hgb O2 Saturation 96.5 Vent Mode A/c Mechanical Rate 14 FiO2 40.0 Tidal Volume 450 PEEP 5 Sodium 149 H Potassium 3.3 L Chloride 111 H Carbon Dioxide 30 Anion Gap 11 BUN 23 H Creatinine 0.9 Est GFR ( Amer) > 60 Est GFR (Non-Af Amer) > 60 Random Glucose 248 H Calcium 9.9 Total Bilirubin AST ALT Alkaline Phosphatase Total Protein Albumin Globulin Albumin/Globulin Ratio Thyroxine (T4) Total T3 TSH 3rd Generation RPR Nonreactive 08/16/18 08/16/18 08/16/18 05:30 05:30 15:24 WBC 6.9 RBC 3.74 L Hgb 9.8 L Hct 30.1 L MCV 80.4 L MCH 26.3 L MCHC 32.7 L RDW 15.8 H Plt Count 480 H MPV 8.6 Neut % (Auto) 57.2 Lymph % (Auto) 33.7 [place] % (Auto) 8.6 Eos % (Auto) 0.2 Baso % (Auto) 0.3 Neut # (Auto) 4.0 Lymph # (Auto) 2.3 [place] # (Auto) 0.6 Eos # (Auto) 0.0 Baso # (Auto) 0.0 pCO2 pO2 HCO3 ABG pH ABG Total CO2 ABG O2 Saturation ABG O2 Content ABG Base Excess ABG Hemoglobin ABG Carboxyhemoglobin POC ABG HHb (Measured) ABG Methemoglobin ABG O2 Capacity Bridger Test A-a O2 Difference Hgb O2 Saturation Vent Mode Mechanical Rate FiO2 Tidal Volume PEEP Sodium 149 H Potassium 3.7 Chloride 110 H Carbon Dioxide 29 Anion Gap 14 BUN 22 H Creatinine 1.0 Est GFR ( Amer) > 60 Est GFR (Non-Af Amer) 56 Random Glucose 317 H Calcium 10.0 Total Bilirubin 0.3 AST 29 ALT 26 Alkaline Phosphatase 98 Total Protein 8.0 Albumin 3.9 Globulin 4.1 H Albumin/Globulin Ratio 1.0 Thyroxine (T4) 5.66 Total T3 0.458 L TSH 3rd Generation 1.11 RPR Fingerstick Blood Sugar Results: 273 Critical Care Progress Note - Nutrition Nutrition: Nutrition Category Date Time Status NPO Diet [DIET] Diets 08/04/18 Breakfast Active Assessment/Plan - Assessment and Plan (Free Text) Assessment: 62 yo F with pmhx of HTN, DM2, Hypothyroid, GERD, schizophrenia s/p fall in [facility], admitted for sepsis secondary to pneumonia, experienced an episode of bradycardia and mario issac was called for PEA with ROSC after epinephrine x3. Plan: -altered mental status: etiology unknown, son stated that dosage of valproic acid was 750. reqeusted neurology and psychiatry follow up -Hypoxic and hypercapenic respiratory failure: continue ventilation to keep Spo2 >92 and pH b/w 7.35-7.45, mental status not ready for extubation, avoid benzo, contine precedex which does not depress respiratory drive CPAP in AM -sepsis: continue abx as per ID -?ines blue: exact events surrounding unknown -monitor BGM q6hrs -?Seizure activity: neurology followup -continue dvt/pud ppx neurolgy, infectious disease and psychiatry input appreciated Prognosis guarded - Date & Time Date: 08/16/18 Time: 13:00
[2018-08-16] MEDS: Divalproex 250 mg ER (ONCE DAILY formulation) PO SCH (21:43)
[2018-08-16] MEDS ORDERED: Insulin Detemir 100 Units/ml Inj SC SCH (22:00)
[2018-08-17] MEDS: Acetaminophen 650mg/20.3ml solution UD PO PRN (00:46)
[2018-08-17] MEDS: Dexmedetomidine Hydrochloride 400 MCG in Sodium Chloride 0.9% 96 ML IV ONE ×3 (00:47→22:56)
[2018-08-17] MEDS: Albuterol-Ipratrop 3 mg / 0.5 (3 ml) UD INH SCH ×4 (02:44→19:20)
[2018-08-17] MEDS: levETIRAcetam 1,000 MG in Sodium Chloride 0.9% 100 ML IVPB SCH ×2 (02:58→16:44)
[2018-08-17] MEDS: Enalaprilat 2.5 MG/2 ML IVP SCH ×4 (03:39→22:03)
[2018-08-17] MEDS: Insulin Lispro (humaLOG) 100 Units/ml Inj SC SCH ×4 (06:18→23:00)
[2018-08-17] MEDS: Levothyroxine 50 MCG TAB PO SCH (06:40)
[2018-08-17 06:56] LABS: ABG ALLEN TEST YES; ARTERIAL BLOOD GAS O2 SAT 98.7 % (95-98); ARTERIAL BLOOD GAS PCO2 42 mm/Hg (35-45); ARTERIAL BLOOD GAS PH 7.44 (7.35-7.45); ARTERIAL BLOOD GAS PO2 162 mm/Hg (80-100); ARTERIAL BLOOD GAS TCO2 29.8 mmol/L (22-28)
--- NOTE | 2018-08-17 08:11 | RAD ---
Date of service: 08/17/2018 HISTORY: et tube COMPARISON: Portable chest 08/16/2018. FINDINGS: LUNGS: Endotracheal and nasogastric tubes do not appear significantly changed in position. No airspace disease identified bilaterally. PLEURA: No significant pleural effusion identified, no pneumothorax apparent. CARDIOVASCULAR: Calcific atherosclerotic changes are seen related to the thoracic aorta. Normal cardiac size. No pulmonary vascular congestion. OSSEOUS STRUCTURES: No significant abnormalities. VISUALIZED UPPER ABDOMEN: Normal. OTHER FINDINGS: None. IMPRESSION: No interval acute cardiopulmonary disease appreciated.
--- NOTE | 2018-08-17 08:47 | CP.PCM.PN ---
<Evens Eaton - Last Filed: 08/17/18 11:18> Subjective - Date & Time of Evaluation Date of Evaluation: 08/17/18 Time of Evaluation: 08:47 - Subjective Subjective: pt seen and evaluated at bedside. NAD. Intubated on vent, 14/450/5/40%. Awakens, makes movements, but they are nonpurposeful and does not follow commands. Low gr ortega fevers remain overnight. BP remains uncontrolled. No episodes of diarrhea/vomiting. Tolerating tube feeds w/o issue. Daughter at bedside, extensive conversation about current findings, imaging/lab results, and required next steps of care. All questions/concerns addressed. No other complaints/con cerns/events. Objective - Vital Signs/Intake and Output Vital Signs (last 24 hours): Temp Pulse Resp BP Pulse Ox 98.0 F 50 L 14 144/63 100 08/17/18 08:00 08/17/18 08:00 08/17/18 08:00 08/17/18 08:00 08/17/18 08:00 Intake and Output: 08/17/18 08/17/18 06:59 18:59 Intake Total 1861 120 Output Total 850 Balance 1011 120 - Medications Medications: Current Medications Acetaminophen (Tylenol 325mg Tab) 650 mg PO Q6 PRN PRN Reason: Fever >100.4 F Last Admin: 08/05/18 05:35 Dose: 650 mg Acetaminophen (Tylenol 650mg/20.3ml Solution Ud) 650 mg PO Q6 PRN PRN Reason: Temperature Last Admin: 08/17/18 00:46 Dose: 650 mg Albuterol/Ipratropium (Duoneb 3 Mg/0.5 Mg (3 Ml) Ud) 3 ml INH RQ6 [facility] Last Admin: 08/17/18 08:03 Dose: 3 ml Amlodipine Besylate (Norvasc) 10 mg PO DAILY [facility] Last Admin: 08/16/18 12:04 Dose: 10 mg Atorvastatin Calcium (Lipitor) 10 mg PO HS [facility] Last Admin: 08/16/18 21:46 Dose: 10 mg Carvedilol (Coreg) 25 mg PO Q12 [facility] Last Admin: 08/16/18 21:42 Dose: 25 mg Dextrose (Dextrose 50% Inj) 0 ml IV STAT PRN; Protocol PRN Reason: Hypoglycemia Protocol Dextrose (Glutose 15) 0 gm PO ONCE PRN; Protocol PRN Reason: Hypoglycemia Protocol Divalproex Sodium (Depakote Er(Once Daily)) 1,250 mg PO HS [facility] Last Admin: 08/16/18 21:43 Dose: 1,250 mg Enalaprilat (Vasotec) 2.5 mg IVP Q6H [facility] Last Admin: 08/17/18 03:39 Dose: 2.5 mg Enoxaparin Sodium (Lovenox) 40 mg SC DAILY [facility]; Protocol Last Admin: 08/15/18 08:23 Dose: 40 mg Escitalopram Oxalate (Lexapro) 10 mg PO HS [facility] Last Admin: 08/16/18 21:46 Dose: 10 mg Glucagon (Glucagen Diagnostic Kit) 0 mg IM STAT PRN; Protocol PRN Reason: Hypoglycemia Protocol Haloperidol Lactate (Haldol) 5 mg IVP Q8 PRN PRN Reason: Agitation Last Admin: 08/13/18 09:45 Dose: 5 mg Hydralazine HCl (Apresoline) 20 mg IV Q4H PRN PRN Reason: Systolic Blood Pressure Hydralazine HCl (Apresoline) 20 mg PO QID [facility] Last Admin: 08/16/18 21:40 Dose: 20 mg Levetiracetam 1,000 mg/ Sodium (Chloride) 110 mls @ 110 mls/hr IVPB Q12@0300,1500 [facility] Last Admin: 08/17/18 02:58 Dose: 110 mls/hr Ceftriaxone Sodium 2 gm/ (Sodium Chloride) 100 mls @ 100 mls/hr IVPB Q12 [facility]; Protocol Last Admin: 08/16/18 21:47 Dose: 100 mls/hr Ibuprofen (Motrin Tab) 600 mg PO Q6 PRN PRN Reason: Fever >100.4 F Last Admin: 08/16/18 02:47 Dose: 600 mg Insulin Detemir (Levemir) 30 units SC HS [facility] Last Admin: 08/16/18 21:45 Dose: 30 units Insulin Human Lispro (Humalog) 0 units SC Q6 [facility]; Protocol Last Admin: 08/17/18 06:18 Dose: 10 units Lactulose (Enulose) 20 gm PO Q12 PRN PRN Reason: Constipation Last Admin: 08/16/18 21:51 Dose: 20 gm Levothyroxine Sodium (Synthroid) 50 mcg PO DAILY@0630 [facility] Last Admin: 08/17/18 06:40 Dose: 50 mcg Losartan Potassium (Cozaar) 100 mg PO DAILY [facility] Last Admin: 08/16/18 08:39 Dose: 100 mg Multivitamins/Minerals (Therapeutic-M Tab) 1 tab PO DAILY [facility] Last Admin: 08/11/18 09:03 Dose: Not Given Pantoprazole Sodium (Protonix Inj) 40 mg IVP DAILY [facility] Last Admin: 08/16/18 08:41 Dose: 40 mg Risperidone (Risperidone Odt 0.25mg) 0.25 mg PO BID [facility] Last Admin: 08/16/18 17:50 Dose: 0.25 mg Sitagliptin Phosphate (Januvia) 100 mg PO HS [facility] Last Admin: 08/16/18 21:45 Dose: 100 mg - Labs Labs: 08/16/18 05:30 08/16/18 05:30 PT 12.2 Seconds (9.8-13.1) 08/04/18 00:30 INR 1.1 08/04/18 00:30 APTT 31.5 Seconds (25.6-37.1) 08/02/18 22:20 - Constitutional Appears: Non-toxic, No Acute Distress, Other (intubated) - Head Exam Head Exam: ATRAUMATIC - Eye Exam Eye Exam: EOMI Pupil Exam: PERRL - Neck Exam Neck Exam: Full ROM. absent: Meningismus - Respiratory Exam Respiratory Exam: Clear to Ausculation Bilateral, NORMAL BREATHING PATTERN. absent: Accessory Muscle Use, Rales, Rhonchi, Wheezes - Cardiovascular Exam Cardiovascular Exam: Bradycardia, REGULAR RHYTHM, RRR, +S1, +S2. absent: JVD, Murmur - GI/Abdominal Exam GI & Abdominal Exam: Soft, Normal Bowel Sounds. absent: Distended, Firm, Guarding - Neurological Exam Neurological Exam: Altered (random bodily movements, does not follow commands, movements non purposeful ) - Skin Skin Exam: Dry, Normal Color Assessment and Plan - Assessment and Plan (Free Text) Assessment: 62 yo female from a prison, with hx of DM II, schizophrenia and HTN; initially admitted for sepsis and pneumonia. Initial labs were significant for leukocytosis with bandemia; CXR showed atelectasis vs infiltrate and pt was started on vancomycin, zosyn and zithromax IV. During the admission, the pt was found to be bradycardic and became unresponsive. A Code Blue was called for suspected Pulseless Electrical Activity; compressions done ,was achieved after 3 rounds of epinephrine. She was then transferred to ICU. When weaned off sedation, mental status changes appreciated per family when compared to her baseline. Neurology was consulted. MRI : negative for acute CVA. 1. s/p CardioRespiratory Arrest -s/p Code Blue (received 3 doses of epinephrine) -Intubated on [facility] Vent 14/450/5/40% -EKG wnl and troponin neg x2 2. Localization-related (focal) (partial) symptomatic epilepsy -as per neuro due to pts infection and antipsychotic lowered seizure threshold; appear to have resolved now -cont Keppra 1000 mg Q12 -Clozapine discontinued -repeat EEG as per Dr Corona 3. AMS due to Encephalopathy - unclear etiology empirically treated with IV Acyclovir for poss Encephalitis Cutures negative MRI of Brain - no signs of Stroke nor Encephalitis tx underlying infection unclear if AMS due to Psych dis Lumbar Puncture today 4. 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 Persistent Fever -infectious process vs NEMS vs central dysfunction -on Rocephin 2gm Q12H -CT of abd with contrast unremarkable -LP pending, daughter and son agreed 6. Anasarca -improving -IV lasix given -Strict I&Os -Renal function stable 7.Hypothyrodism -Chronic, uncontrolled -Levothyroxine 50mcg daily -TSH low- Levothyroxine decreased 8. DM tpe II , with Insulin use -Chronic -oral meds held -Levemir 30 units QHS -Insulin coverage scale and hypoglycemia protocol -Hypoglycemia protocol 9. HTN uncontrolled -cont Lasix, Amlodipine, Coreg and Losartan -added Hydralazine -c/w monitoring BPs 10. Schizophrenia -Chronic -Home meds held for now -cont Depakote -Psych consulted- rec Lexapro and Risperdal 11. Hypernatremia -resolved 12. Hypokalemia -3.3 today -replace with KCl -repeat BMP in AM 13) DVT prophylaxis -Lovenox 40mg SC QD -SCDs 14) Code Status -full code <Baylee Garcia - Last Filed: 08/17/18 11:42> Objective - Vital Signs/Intake and Output Vital Signs (last 24 hours): Temp Pulse Resp BP Pulse Ox 98.0 F 52 L 14 159/73 H 100 08/17/18 08:00 08/17/18 10:00 08/17/18 10:00 08/17/18 10:00 08/17/18 10:00 Intake and Output: 08/17/18 08/17/18 06:59 18:59 Intake Total 1861 590 Output Total 850 Balance 1011 590 - Medications Medications: Current Medications Acetaminophen (Tylenol 325mg Tab) 650 mg PO Q6 PRN PRN Reason: Fever >100.4 F Last Admin: 08/05/18 05:35 Dose: 650 mg Acetaminophen (Tylenol 650mg/20.3ml Solution Ud) 650 mg PO Q6 PRN PRN Reason: Temperature Last Admin: 08/17/18 00:46 Dose: 650 mg Albuterol/Ipratropium (Duoneb 3 Mg/0.5 Mg (3 Ml) Ud) 3 ml INH RQ6 [facility] Last Admin: 08/17/18 08:03 Dose: 3 ml Amlodipine Besylate (Norvasc) 10 mg PO DAILY [facility] Last Admin: 08/16/18 12:04 Dose: 10 mg Atorvastatin Calcium (Lipitor) 10 mg PO HS [facility] Last Admin: 08/16/18 21:46 Dose: 10 mg Carvedilol (Coreg) 25 mg PO Q12 [facility] Last Admin: 08/16/18 21:42 Dose: 25 mg Dextrose (Dextrose 50% Inj) 0 ml IV STAT PRN; Protocol PRN Reason: Hypoglycemia Protocol Dextrose (Glutose 15) 0 gm PO ONCE PRN; Protocol PRN Reason: Hypoglycemia Protocol Divalproex Sodium (Depakote Er(Once Daily)) 1,250 mg PO HS [facility] Last Admin: 08/16/18 21:43 Dose: 1,250 mg Enalaprilat (Vasotec) 2.5 mg IVP Q6H [facility] Last Admin: 08/17/18 03:39 Dose: 2.5 mg Enoxaparin Sodium (Lovenox) 40 mg SC DAILY [facility]; Protocol Last Admin: 08/15/18 08:23 Dose: 40 mg Escitalopram Oxalate (Lexapro) 10 mg PO HS [facility] Last Admin: 08/16/18 21:46 Dose: 10 mg Glucagon (Glucagen Diagnostic Kit) 0 mg IM STAT PRN; Protocol PRN Reason: Hypoglycemia Protocol Haloperidol Lactate (Haldol) 5 mg IVP Q8 PRN PRN Reason: Agitation Last Admin: 08/13/18 09:45 Dose: 5 mg Hydralazine HCl (Apresoline) 20 mg IV Q4H PRN PRN Reason: Systolic Blood Pressure Hydralazine HCl (Apresoline) 20 mg PO QID [facility] Last Admin: 08/17/18 09:49 Dose: 20 mg Levetiracetam 1,000 mg/ Sodium (Chloride) 110 mls @ 110 mls/hr IVPB Q12@0300,1500 [facility] Last Admin: 08/17/18 02:58 Dose: 110 mls/hr Ceftriaxone Sodium 2 gm/ (Sodium Chloride) 100 mls @ 100 mls/hr IVPB Q12 [facility]; Protocol Last Admin: 08/17/18 09:48 Dose: 100 mls/hr Ibuprofen (Motrin Tab) 600 mg PO Q6 PRN PRN Reason: Fever >100.4 F Last Admin: 08/16/18 02:47 Dose: 600 mg Insulin Detemir (Levemir) 30 units SC HS [facility] Last Admin: 08/16/18 21:45 Dose: 30 units Insulin Human Lispro (Humalog) 0 units SC Q6 [facility]; Protocol Last Admin: 08/17/18 09:57 Dose: 8 units Lactulose (Enulose) 20 gm PO Q12 PRN PRN Reason: Constipation Last Admin: 08/16/18 21:51 Dose: 20 gm Levothyroxine Sodium (Synthroid) 50 mcg PO DAILY@0630 [facility] Last Admin: 08/17/18 06:40 Dose: 50 mcg Losartan Potassium (Cozaar) 100 mg PO DAILY [facility] Last Admin: 08/16/18 08:39 Dose: 100 mg Multivitamins/Minerals (Therapeutic-M Tab) 1 tab PO DAILY [facility] Last Admin: 08/11/18 09:03 Dose: Not Given Pantoprazole Sodium (Protonix Inj) 40 mg IVP DAILY [facility] Last Admin: 08/17/18 09:48 Dose: 40 mg Risperidone (Risperidone Odt 0.25mg) 0.25 mg PO BID [facility] Last Admin: 08/17/18 09:47 Dose: 0.25 mg Sitagliptin Phosphate (Januvia) 100 mg PO HS [facility] Last Admin: 08/16/18 21:45 Dose: 100 mg - Labs Labs: 08/17/18 08:47 08/17/18 08:47 PT 12.2 Seconds (9.8-13.1) 08/04/18 00:30 INR 1.1 08/04/18 00:30 APTT 31.5 Seconds (25.6-37.1) 08/02/18 22:20 Attending/Attestation - Attestation I have personally seen and examined this patient.: Yes I have fully participated in the care of the patient.: Yes I have reviewed all pertinent clinical information, including history, physical exam and plan: Yes Notes (Text): PLan for LP with Anesthesia today CSF Cell Ct, Culture, GRam stain, Protein, Glucose, AFB, Lyme, West Nile, Bacterial Ag,VDRL, HSV
[2018-08-17 08:56] LABS: BASO # 0.1 K/uL (0.0-0.2); BASO % 0.9 % (0.0-2.0); EOS % 0.5 % (0.0-4.0); HEMOGLOBIN 10.2 g/dL (12.0-16.0); LYMPH # 2.6 K/uL (1.0-4.3); LYMPH % 35.8 % (20.0-40.0); MEAN CELL VOLUME 82.6 fl (81.0-99.0); MEAN CORPUSCULAR HEMOGLOBIN 26.3 pg (27.0-31.0); MEAN CORPUSCULAR HGB CONC 31.8 g/dL (33.0-37.0); MEAN PLATELET VOLUME 8.6 fl (7.2-11.7); MONO # 0.5 K/uL (0.0-0.8); MONO % 6.4 % (0.0-10.0); NEUT % 56.4 % (50.0-75.0); NRBC % 0.2 % (0.0-0.0); RBC 3.88 Mil/uL (3.80-5.20); RED CELL DISTRIBUTION WIDTH 15.5 % (11.5-14.5); WHITE BLOOD COUNT 7.1 K/uL (4.8-10.8)
[2018-08-17 09:12] LABS: ALBUMIN 3.7 g/dL (3.5-5.0); ALT/SGPT 22 U/L (9-52); AST/SGOT 26 U/L (14-36); BLOOD UREA NITROGEN 26 mg/dl (7-17); GFR NON-AFRICAN AMERICAN > 60
[2018-08-17] MEDS: RISPERIDONE 0.25 MG ODT PO SCH ×2 (09:47→16:51)
[2018-08-17] MEDS: cefTRIAXone 2 GM in Sodium Chloride 0.9% 100 ML IVPB SCH ×2 (09:48→21:53)
[2018-08-17] MEDS ORDERED: Potassium Chloride 20 mEq/15 ml LIQ UD PO ONE (09:55)
--- NOTE | 2018-08-17 13:51 | CP.PCM.PN ---
Subjective - Date & Time of Evaluation Date of Evaluation: 08/17/18 Time of Evaluation: 08:00 - Subjective Subjective: remains vented comatose all cultures neg ?anoxic encephalopathy await LP, neuro? follow up ct abd negative Objective - Vital Signs/Intake and Output Vital Signs (last 24 hours): Temp Pulse Resp BP Pulse Ox 98.9 F 60 16 174/78 H 100 08/17/18 12:00 08/17/18 13:33 08/17/18 12:00 08/17/18 13:33 08/17/18 12:00 Intake and Output: 08/17/18 08/17/18 06:59 18:59 Intake Total 1861 850 Output Total 850 Balance 1011 850 - Medications Medications: Current Medications Acetaminophen (Tylenol 325mg Tab) 650 mg PO Q6 PRN PRN Reason: Fever >100.4 F Last Admin: 08/05/18 05:35 Dose: 650 mg Acetaminophen (Tylenol 650mg/20.3ml Solution Ud) 650 mg PO Q6 PRN PRN Reason: Temperature Last Admin: 08/17/18 00:46 Dose: 650 mg Albuterol/Ipratropium (Duoneb 3 Mg/0.5 Mg (3 Ml) Ud) 3 ml INH RQ6 [facility] Last Admin: 08/17/18 13:23 Dose: 3 ml Amlodipine Besylate (Norvasc) 10 mg PO DAILY [facility] Last Admin: 08/17/18 12:03 Dose: 10 mg Atorvastatin Calcium (Lipitor) 10 mg PO HS [facility] Last Admin: 08/16/18 21:46 Dose: 10 mg Carvedilol (Coreg) 25 mg PO Q12 [facility] Last Admin: 08/17/18 12:02 Dose: Not Given Dextrose (Dextrose 50% Inj) 0 ml IV STAT PRN; Protocol PRN Reason: Hypoglycemia Protocol Dextrose (Glutose 15) 0 gm PO ONCE PRN; Protocol PRN Reason: Hypoglycemia Protocol Divalproex Sodium (Depakote Er(Once Daily)) 1,250 mg PO HS [facility] Last Admin: 08/16/18 21:43 Dose: 1,250 mg Enalaprilat (Vasotec) 2.5 mg IVP Q6H [facility] Last Admin: 08/17/18 12:12 Dose: 2.5 mg Enoxaparin Sodium (Lovenox) 40 mg SC DAILY [facility]; Protocol Last Admin: 08/15/18 08:23 Dose: 40 mg Escitalopram Oxalate (Lexapro) 10 mg PO HS [facility] Last Admin: 08/16/18 21:46 Dose: 10 mg Glucagon (Glucagen Diagnostic Kit) 0 mg IM STAT PRN; Protocol PRN Reason: Hypoglycemia Protocol Haloperidol Lactate (Haldol) 5 mg IVP Q8 PRN PRN Reason: Agitation Last Admin: 08/13/18 09:45 Dose: 5 mg Hydralazine HCl (Apresoline) 20 mg IV Q4H PRN PRN Reason: Systolic Blood Pressure Hydralazine HCl (Apresoline) 20 mg PO QID [facility] Last Admin: 08/17/18 13:33 Dose: 20 mg Levetiracetam 1,000 mg/ Sodium (Chloride) 110 mls @ 110 mls/hr IVPB Q12@0300,1500 [facility] Last Admin: 08/17/18 02:58 Dose: 110 mls/hr Ceftriaxone Sodium 2 gm/ (Sodium Chloride) 100 mls @ 100 mls/hr IVPB Q12 [facility]; Protocol Last Admin: 08/17/18 09:48 Dose: 100 mls/hr Dexmedetomidine HCl 400 mcg/ (Sodium Chloride) 100 mls @ 4.45 mls/hr IV .[id number] ONE; Protocol Stop: 08/18/18 10:07 Ibuprofen (Motrin Tab) 600 mg PO Q6 PRN PRN Reason: Fever >100.4 F Last Admin: 08/16/18 02:47 Dose: 600 mg Insulin Detemir (Levemir) 30 units SC HS [facility] Last Admin: 08/16/18 21:45 Dose: 30 units Insulin Human Lispro (Humalog) 0 units SC Q6 [facility]; Protocol Last Admin: 08/17/18 09:57 Dose: 8 units Lactulose (Enulose) 20 gm PO Q12 PRN PRN Reason: Constipation Last Admin: 08/16/18 21:51 Dose: 20 gm Levothyroxine Sodium (Synthroid) 50 mcg PO DAILY@0630 [facility] Last Admin: 08/17/18 06:40 Dose: 50 mcg Losartan Potassium (Cozaar) 100 mg PO DAILY [facility] Last Admin: 08/17/18 12:01 Dose: Not Given Multivitamins/Minerals (Therapeutic-M Tab) 1 tab PO DAILY [facility] Last Admin: 08/11/18 09:03 Dose: Not Given Pantoprazole Sodium (Protonix Inj) 40 mg IVP DAILY [facility] Last Admin: 08/17/18 09:48 Dose: 40 mg Risperidone (Risperidone Odt 0.25mg) 0.25 mg PO BID [facility] Last Admin: 08/17/18 09:47 Dose: 0.25 mg Sitagliptin Phosphate (Januvia) 100 mg PO HS [facility] Last Admin: 08/16/18 21:45 Dose: 100 mg - Labs Labs: 08/17/18 08:47 08/17/18 08:47 PT 12.2 Seconds (9.8-13.1) 08/04/18 00:30 INR 1.1 08/04/18 00:30 APTT 31.5 Seconds (25.6-37.1) 08/02/18 22:20 - Constitutional Appears: Confused, Chronically Ill - Head Exam Head Exam: NORMOCEPHALIC - Eye Exam Eye Exam: absent: Scleral icterus - ENT Exam ENT Exam: Mucous Membranes Dry - Neck Exam Neck Exam: absent: Lymphadenopathy - Respiratory Exam Respiratory Exam: Decreased Breath Sounds - Cardiovascular Exam Cardiovascular Exam: REGULAR RHYTHM - GI/Abdominal Exam GI & Abdominal Exam: Distended - Rectal Exam Rectal Exam: Deferred - Exam Exam: NORMAL INSPECTION - Extremities Exam Extremities Exam: absent: Pedal Edema - Back Exam Back Exam: absent: CVA tenderness (L), CVA tenderness (R) - Neurological Exam Neurological Exam: Altered. absent: Alert Assessment and Plan (1) Pneumonia Status: Acute (2) Severe sepsis Status: Acute - Assessment and Plan (Free Text) Assessment: r/o anoxic encephalopathy
--- NOTE | 2018-08-17 15:32 | PCM.PROC ---
Procedures Attestation:: I certify that I have explained the specified Operation(s) or Procedure(s), risks, benefits and reasonable alternatives to the Patient and/or other person responsible. The opportunity was given to ask questions and all questions answered - Lumbar Puncture Consent Obtained: Written Consent (Consent for the procedure was done earlier by Anesthesia.) Time Out Performed: Yes Patient Position: Right Lateral Decubitius Skin Prep: Povidone-Iodine 1% Local Anesthetic Used: Lidocaine 2% Amount of Anesthesia Used (mls): 3 Spinal Needle Gauge: 22G Interspace Used: L3-L4 Fluid Initially Obtained: Clear Complications: None Additional comments: opening pressure was not measured. I was told by the nurse that they only needed CSF samples. 4 test tubes of approximately one ml each taken. Bandage placed after spinal needle withdrawn. Tegaderm placed on top of bandage to protect pucture site from feces. Patient was intubated and sedated during the entire procedure. ICU Nursing staff helped position the patient. There was no complication noted. Vital signs was stable the entire time.
[2018-08-17 16:10] LABS: FLUID TYPE SPINAL FLUID
[2018-08-17] MEDS: Fluconazole IV 100mg/50 ml NS 50 ML IVPB SCH (16:11)
[2018-08-17 16:43] LABS: CSF APPEARANCE CLEAR/COLORLESS (CLEAR)
[2018-08-17 21:04] LABS: CSF VOLUME 1 mL (0-1)
[2018-08-17 21:38] LABS: N MENINGITIS ACY/W135 NEGATIVE (NEGATIVE); N MENINGITIS B/ECOLI K1 NEGATIVE (NEGATIVE); STREP PNEUMONIAE NEGATIVE (NEGATIVE); STREPTOCOCCUS B NEGATIVE (NEGATIVE)
[2018-08-17] MEDS: Insulin Detemir 100 Units/ml Inj SC SCH (21:55)
[2018-08-18] MEDS: Albuterol-Ipratrop 3 mg / 0.5 (3 ml) UD INH SCH ×4 (01:23→19:24)
[2018-08-18] MEDS: levETIRAcetam 1,000 MG in Sodium Chloride 0.9% 100 ML IVPB SCH ×2 (02:25→15:03)
[2018-08-18 05:08] LABS: ABG ALLEN TEST YES; ARTERIAL BLOOD GAS HEMOGLOBIN 9.9 g/dL (11.7-17.4); ARTERIAL BLOOD GAS O2 CAPACITY 13.7 mL/dL (16-24); ARTERIAL BLOOD GAS O2 CONTENT 13.5 ML/dL (15-23); ARTERIAL BLOOD GAS O2 SAT 98.5 % (95-98); ARTERIAL BLOOD GAS PCO2 34 mm/Hg (35-45); ARTERIAL BLOOD GAS PH 7.56 (7.35-7.45); ARTERIAL BLOOD GAS PO2 91 mm/Hg (80-100); ARTERIAL BLOOD GAS TCO2 31.4 mmol/L (22-28)
[2018-08-18 05:17] LABS: HEMOGLOBIN 10.5 g/dL (12.0-16.0); MEAN CELL VOLUME 80.8 fl (81.0-99.0); MEAN CORPUSCULAR HEMOGLOBIN 25.9 pg (27.0-31.0); MEAN CORPUSCULAR HGB CONC 32.1 g/dL (33.0-37.0); RBC 4.05 Mil/uL (3.80-5.20); RED CELL DISTRIBUTION WIDTH 15.5 % (11.5-14.5); WHITE BLOOD COUNT 6.8 K/uL (4.8-10.8)
[2018-08-18 05:36] LABS: ALBUMIN 3.9 g/dL (3.5-5.0); ALT/SGPT 22 U/L (9-52); AST/SGOT 20 U/L (14-36); BLOOD UREA NITROGEN 23 mg/dl (7-17); CALCIUM 9.9 mg/dL (8.4-10.2); GFR NON-AFRICAN AMERICAN > 60
--- NOTE | 2018-08-18 05:47 | PN ---
DATE: 08/17/2018 CRITICAL CARE PROGRESS NOTE LOCATION: The patient in ICU, bed 431. TIME SPENT: 35 minutes. The patient is seen and evaluated at the bedside. Past medical, surgical, family, and social history reviewed. Events since admission noted. HISTORY OF PRESENT ILLNESS: A 62-year-old female from a retirement with medical history significant for hypertension, diabetes mellitus type 2, hypothyroidism, gastroesophageal reflux disease, and schizophrenia. Admitted on 08/02/2018 for sepsis due to pneumonia, status post code blue, resuscitated with code blue, pulseless electrical activity, resuscitated after three rounds of epinephrine, fluid support, and bicarbonate. Remains intubated on mechanical ventilation. Noted seizure activity in EEG, seen by Neurology, started on Keppra, remains seizure-free. No significant improvement in the mental status, intermittent febrile, off antibiotics. Repeat septic workup done. Awaiting for results. Recommended by ID for LP to be accomplished today by Anesthesiology. On AC/PRVC, rate of 14, tidal volume of 450, PEEP of 5, FiO2 of 40%, observed rate 14, exhaled tidal volume 360, minute ventilation 5.4 liters, saturation 100%, peak airway pressure 22, end-tidal CO2 of 21. PHYSICAL EXAMINATION: VITAL SIGNS: T-max 102.5. Telemetry, sinus rhythm. Heart rate 52 to 53, blood pressure 159/73 to 163/72, saturation 100%. Intake 2465, output 2650, negative balance 185. Weight 196 pounds. HEAD, EYES, EARS, NOSE AND THROAT: Pupils are round and reactive to light and accommodation. Extraocular muscles intact. NECK: Supple. No stiffness. CHEST: Bilateral breath sounds. Clear to auscultation. HEART: Rhythm regular. S1, S2 normal intensity. No S3, S4 gallop. No audible murmur. ABDOMEN: Bowel sounds present and soft. EXTREMITIES: No clubbing or cyanosis. NEUROLOGIC: Altered random body movement. Does not follow commands. Non-purposeful movement. SKIN: Dry, normal without rash. LABORATORY DATA: WBC 7.1, hemoglobin 10.2, hematocrit 32.1, platelet count of 480. Neutrophils 8.6, , lymphocytes 35.8. PT 12.2, INR 1. ABG, pH 7.4, pCO2 of 42, pO2 of 162, oxygen saturation 98.7%. On AC/PRVC rate 14, 415, 40%, PEEP of 5. SMA-7: Sodium 143, potassium 3.3, chloride of 107, CO2 of 27, blood urea nitrogen 26, creatinine 0.8, random glucose 341, calcium 9, phosphorus 3.9, magnesium 2.2, total bilirubin 0.5, AST 26, ALT 22, alkaline phosphatase 80, total protein 7.4, albumin 3.7. Urinalysis, urobilinogen 4, leukocyte esterase negative, rbc 5, wbc 1. Toxicology, vancomycin trough level 36.5. Immunology: Cold agglutinin negative serology, QuantiFERON-TB test indeterminate. Microbiology, urine culture positive for yeast. [place] count, more than 100,000 CFU per mL. Sputum culture, normal dolores. Blood culture no growth reported. Chest x-ray from 08/17/2018, no interval acute cardiopulmonary disease, normal cardiac size, no pulmonary vascular congestion. No significant pleural effusion identified. CT abdomen and pelvis, no evidence of focal fluid collection in the abdomen to suggest abscess, nonspecific perinephric changes adjacent to the kidneys, small right renal cyst, NG tube in the stomach, stomach is decompressed, fatty infiltration of liver. No evidence of bowel obstruction or colitis. IMPRESSION AND PLAN: 1. Neurologic, status post cardiorespiratory arrest, resuscitated after 3 dose of epinephrine, remains lethargic with minimal response and nonpurposeful movements, focal seizure noted in the EEG, on Keppra. No further visible seizure noted. The patient is status post acyclovir and empirically on Rocephin for suspected central nervous system infection. Awaiting for a lumbar cerebrospinal fluid study after lumbar puncture today. Continue Keppra 1000 mg every 12 hours. MRI of the brain, no sign of stroke or encephalitis. Suspected neuroleptic malignant syndrome, seen by Psychiatry. Medications changed to Lexapro and Risperdal. 3. Pulmonary, ventilatory dependent respiratory failure, status post pneumonia. History of positive purified protein derivative in the past, Gold QuantiFERON-TB test indeterminate. Infectious process versus neuroleptic malignant syndrome. 4. CT of abdomen and pelvis negative. Cultures negative so far. Urine culture, recently reported yeast. We will check with Infectious Disease to cover for possible yeast infection in the urine. 5. Hypothyroidism, chronic, controlled. 6. Diabetes mellitus type 2, on insulin Levemir 30 units at night. Accu-Chek with regular insulin coverage. Continue hypoglycemic protocol. 7. Hypertension; on Coreg, Losartan, and hydralazine. 8. Psychiatric, history of schizophrenia, on Lexapro and Risperdal. 9. Renal, hypernatremia resolved. Hypokalemia, supplement potassium. Mild prerenal azotemia. Keep head of bed 30 degrees up. Ray in place for adequate intake/output measurement Kartik Pettit MD
[2018-08-18] MEDS: Levothyroxine 50 MCG TAB PO SCH (06:07)
--- NOTE | 2018-08-18 07:24 | CP.CCUPN ---
<Zi Naranjo - Last Filed: 08/18/18 12:29> CCU Subjective - Physician Review Subjective (Free Text): 08/18/18 12:29 Pt seen and examined at bedside this am. Intubated on mechanical ventilation. Pt more alert, however, intermittent. Currently afebrile, receiving tube feeds. CCU Objective - Vital Signs / Intake & Output Vital Signs (Last 4 hours): Vital Signs Temp Pulse Resp BP Pulse Ox 08/18/18 06:00 50 L 14 173/78 H 100 08/18/18 04:00 98.8 F 53 L 14 175/77 H 100 Intake and Output (Last 8hrs): Intake & Output 08/17/18 08/18/18 08/18/18 22:59 06:59 14:59 Intake Total 1284 1164 Output Total 600 1350 Balance 684 -186 Intake: IV 154 54 Intake, Piggyback 200 100 Tube Feeding 480 510 Free Water Flush 450 500 Output: Urine 600 1350 Urethral (Ray) 600 1350 - Physical Exam Physical Exam Limitations: Positive for: Other (Intubated on mechanical ventilation) Head: Positive for: Normocephalic Pupils: Positive for: Sluggish Extroacular Muscles: Positive for: EOMI Conjunctiva: Positive for: Normal Ears: Positive for: Normal Mouth: Positive for: Moist Mucous Membranes (ETT tube in place, yellow secretions, OG tube) Nose (External): Positive for: Other Neck: Positive for: Normal Range of Motion Respiratory/Chest: Positive for: Good Air Exchange, Rhonchi, Other (Mechanical ventilation). Negative for: Rales Cardiovascular: Positive for: Regular Rate and Rhythm, Normal S1, S2. Negative for: Murmurs Abdomen: Positive for: Distention, Normal Bowel Sounds Upper Extremity: Positive for: Edema (trace pitting in upper extremities bl), NORMAL PULSES, Capillary Refill < 2s Lower Extremity: Positive for: NORMAL PULSES, Capillary Refill < 2 s. Negative for: Edema Neurological: Positive for: Other (Eyes open spotnaneously, non verbal, withdraws from pain) Skin: Positive for: Warm, Dry, Rashes Psychiatric: Positive for: Alert (intermittent), Lethargic (improved). Negative for: Oriented x 3, Agitated - Medications Active Medications: Active Medications Generic Name Dose Route Start Last Admin Trade Name Freq PRN Reason Stop Dose Admin Acetaminophen 650 mg 08/03/18 03:33 08/05/18 05:35 Tylenol 325mg Tab PO 650 mg Q6 PRN Administration Fever >100.4 F Acetaminophen 650 mg 08/15/18 22:15 08/17/18 00:46 Tylenol 650mg/20.3ml Solution Ud PO 650 mg Q6 PRN Administration Temperature Albuterol/Ipratropium 3 ml 08/16/18 14:00 08/18/18 01:23 Duoneb 3 Mg/0.5 Mg (3 Ml) Ud INH 3 ml RQ6 LESLIE Administration Amlodipine Besylate 10 mg 08/03/18 09:00 08/17/18 12:03 Norvasc PO 10 mg DAILY LESLIE Administration Atorvastatin Calcium 10 mg 08/03/18 22:00 08/17/18 21:53 Lipitor PO 10 mg HS LESLIE Administration Carvedilol 25 mg 08/15/18 21:00 08/17/18 21:53 Coreg PO 25 mg Q12 LESLIE Administration Dextrose 0 ml 08/03/18 03:35 Dextrose 50% Inj IV STAT PRN Hypoglycemia Protocol Protocol Dextrose 0 gm 08/03/18 03:35 Glutose 15 PO ONCE PRN Hypoglycemia Protocol Protocol Divalproex Sodium 1,250 mg 08/03/18 22:00 08/16/18 21:43 Depakote Er(Once Daily) PO 1,250 mg HS LESLIE Administration Enalaprilat 2.5 mg 08/17/18 03:15 08/17/18 22:03 Vasotec IVP 2.5 mg Q6H LESLIE Administration Enoxaparin Sodium 40 mg 08/09/18 09:00 08/15/18 08:23 Lovenox SC 40 mg DAILY LESLIE Administration Protocol Escitalopram Oxalate 10 mg 08/03/18 22:00 08/17/18 21:53 Lexapro PO 10 mg HS LESLIE Administration Glucagon 0 mg 08/03/18 03:35 Glucagen Diagnostic Kit IM STAT PRN Hypoglycemia Protocol Protocol Haloperidol Lactate 5 mg 08/12/18 13:03 08/13/18 09:45 Haldol IVP 5 mg Q8 PRN Administration Agitation Hydralazine HCl 20 mg 08/16/18 14:00 Apresoline IV Q4H PRN Systolic Blood Pressure Hydralazine HCl 20 mg 08/16/18 17:00 08/17/18 22:59 Apresoline PO 20 mg QID LESLIE Administration Levetiracetam 1,000 mg/ Sodium 110 mls @ 110 mls/hr 08/06/18 15:00 08/18/18 02:25 Chloride IVPB 110 mls/hr Q12@0300,1500 LESLIE Administration Ceftriaxone Sodium 2 gm/ 100 mls @ 100 mls/hr 08/15/18 09:00 08/17/18 21:53 Sodium Chloride IVPB 100 mls/hr Q12 LESLIE Administration Protocol Dexmedetomidine HCl 400 mcg/ 100 mls @ 4.45 mls/hr 08/17/18 11:39 08/17/18 22:56 Sodium Chloride IV 08/18/18 10:07 0.6 mcg/kg/hr .[id number] ONE 13.34 mls/hr Administration Protocol 0.2 MCG/KG/HR Fluconazole 50 mls @ 50 mls/hr 08/17/18 14:00 08/17/18 16:11 Diflucan Iv 100 Mg/50 Ml Ns IVPB 50 mls/hr DAILY LESLIE Administration Protocol Ibuprofen 600 mg 08/03/18 13:30 08/16/18 02:47 Motrin Tab PO 600 mg Q6 PRN Administration Fever >100.4 F Insulin Detemir 35 units 08/17/18 22:00 08/17/18 21:55 Levemir SC 35 units HS LESLIE Administration Insulin Human Lispro 0 units 08/14/18 12:00 08/17/18 23:00 Humalog SC Not Given Q6 LESLIE Protocol Lactulose 20 gm 08/08/18 17:16 08/16/18 21:51 Enulose PO 20 gm Q12 PRN Administration Constipation Levothyroxine Sodium 50 mcg 08/04/18 06:30 08/18/18 06:07 Synthroid PO 50 mcg DAILY@0630 LESLIE Administration Losartan Potassium 100 mg 08/10/18 09:00 08/17/18 12:01 Cozaar PO Not Given DAILY LESLIE Multivitamins/Minerals 1 tab 08/03/18 09:00 08/11/18 09:03 Therapeutic-M Tab PO Not Given DAILY LESLIE Pantoprazole Sodium 40 mg 08/11/18 09:45 08/17/18 09:48 Protonix Inj IVP 40 mg DAILY LESLIE Administration Risperidone 0.25 mg 08/15/18 17:00 08/17/18 16:51 Risperidone Odt 0.25mg PO 0.25 mg BID LESLIE Administration Sitagliptin Phosphate 100 mg 08/03/18 22:00 08/17/18 21:54 Januvia PO 100 mg HS LESLIE Administration - Patient Studies Lab Studies: Microbiology Studies 08/15/18 11:20 Urine Culture - Final Urine,Ray Yeast Species 08/15/18 11:20 Gram Stain - Final Trachasp Sputum Culture - Final NORMAL ORAL DOLORES 08/15/18 10:25 Blood Culture - Preliminary Blood NO GROWTH AFTER 48 HOURS 08/15/18 10:20 Blood Culture - Preliminary Blood NO GROWTH AFTER 48 HOURS Lab Studies 08/18/18 08/18/18 08/18/18 Range/Units 04:30 04:30 04:17 WBC 6.8 (4.8-10.8) K/uL RBC 4.05 (3.80-5.20) Mil/uL Hgb 10.5 L (12.0-16.0) g/dL Hct 32.7 L (34.0-47.0) % MCV 80.8 L (81.0-99.0) fl MCH 25.9 L (27.0-31.0) pg MCHC 32.1 L (33.0-37.0) g/dL RDW 15.5 H (11.5-14.5) % Plt Count 345 (130-400) K/uL MPV (7.2-11.7) fl Neut % (Auto) (50.0-75.0) % Lymph % (Auto) (20.0-40.0) % Love % (Auto) (0.0-10.0) % Eos % (Auto) (0.0-4.0) % Baso % (Auto) (0.0-2.0) % Neut # (Auto) (1.8-7.0) K/uL Lymph # (Auto) (1.0-4.3) K/uL Love # (Auto) (0.0-0.8) K/uL Eos # (Auto) (0.0-0.7) K/uL Baso # (Auto) (0.0-0.2) K/uL pCO2 34 L (35-45) mm/Hg pO2 91 (80-100) mm/Hg HCO3 31.0 H (21-28) mmol/L ABG pH 7.56 H (7.35-7.45) ABG Total CO2 31.4 H (22-28) mmol/L ABG O2 Saturation 98.5 H (95-98) % ABG O2 Content 13.5 L (15-23) ML/dL ABG Base Excess 7.8 H (-2.0-3.0) mmol/L ABG Hemoglobin 9.9 L (11.7-17.4) g/dL ABG Carboxyhemoglobin 1.4 (0.5-1.5) % POC ABG HHb (Measured) 1.5 (0.0-5.0) % ABG Methemoglobin 0.9 (0.0-3.0) % ABG O2 Capacity 13.7 L (16-24) mL/dL Bridger Test Yes ABG Potassium (3.6-5.2) mmol/L A-a O2 Difference 152.0 mm/Hg Hgb O2 Saturation 96.2 (95.0-98.0) % Sodium 146 (132-148) mmol/L Chloride 108 H (98-107) mmol/L Glucose (65-105) mg/dL Lactate (0.7-2.1) mmol/L Vent Mode A/c Mechanical Rate 14 FiO2 40.0 % Tidal Volume 450 PEEP 5 Potassium 3.6 (3.6-5.0) MMOL/L Carbon Dioxide 29 (22-30) mmol/L Anion Gap 13 (10-20) BUN 23 H (7-17) mg/dl Creatinine 0.6 L (0.7-1.2) mg/dl Est GFR ( Amer) > 60 Est GFR (Non-Af Amer) > 60 POC Glucose (mg/dL) (65-110) mg/dL Random Glucose 204 H (65-105) mg/dL Calcium 9.9 (8.4-10.2) mg/dL Phosphorus (2.5-4.5) mg/dl Magnesium (1.6-2.3) MG/DL Total Bilirubin 0.5 (0.2-1.3) mg/dl AST 20 (14-36) U/L ALT 22 (9-52) U/L Alkaline Phosphatase 85 (38-126) U/L Total Creatine Kinase 119 (30-135) U/L Total Protein 7.9 (6.3-8.2) G/DL Albumin 3.9 (3.5-5.0) g/dL Globulin 4.0 H (2.2-3.9) gm/dL Albumin/Globulin Ratio 1.0 (1.0-2.1) Arterial Blood Potassium (3.6-5.2) mmol/L Fluid Type CSF Volume (0-1) mL CSF Appearance (CLEAR) CSF WBC (0.0-5.0) /mm3 CSF RBC (0.0-0.0) /mm3 CSF Total Cell Counted CSF Neutrophils CSF Monos/Macrophages CSF Glucose (40-70) mg/dL CSF Total Protein (12-60) mg/dL Valproic Acid (50.0-100.0) ug/mL HSV Source Description H.influenzae Type B Ag (NEGATIVE) Legionella Culture N.meningitidis ACY/W135 (NEGATIVE) N.meningi B/E.coli K1 Ag (NEGATIVE) Group B Strep Antigen (NEGATIVE) S. pneumoniae Antigen (NEGATIVE) 08/17/18 08/17/18 08/17/18 Range/Units 22:01 16:42 15:40 WBC (4.8-10.8) K/uL RBC (3.80-5.20) Mil/uL Hgb (12.0-16.0) g/dL Hct (34.0-47.0) % MCV (81.0-99.0) fl MCH (27.0-31.0) pg MCHC (33.0-37.0) g/dL RDW (11.5-14.5) % Plt Count (130-400) K/uL MPV (7.2-11.7) fl Neut % (Auto) (50.0-75.0) % Lymph % (Auto) (20.0-40.0) % Love % (Auto) (0.0-10.0) % Eos % (Auto) (0.0-4.0) % Baso % (Auto) (0.0-2.0) % Neut # (Auto) (1.8-7.0) K/uL Lymph # (Auto) (1.0-4.3) K/uL Love # (Auto) (0.0-0.8) K/uL Eos # (Auto) (0.0-0.7) K/uL Baso # (Auto) (0.0-0.2) K/uL pCO2 (35-45) mm/Hg pO2 (80-100) mm/Hg HCO3 (21-28) mmol/L ABG pH (7.35-7.45) ABG Total CO2 (22-28) mmol/L ABG O2 Saturation (95-98) % ABG O2 Content (15-23) ML/dL ABG Base Excess (-2.0-3.0) mmol/L ABG Hemoglobin (11.7-17.4) g/dL ABG Carboxyhemoglobin (0.5-1.5) % POC ABG HHb (Measured) (0.0-5.0) % ABG Methemoglobin (0.0-3.0) % ABG O2 Capacity (16-24) mL/dL Bridger Test ABG Potassium (3.6-5.2) mmol/L A-a O2 Difference mm/Hg Hgb O2 Saturation (95.0-98.0) % Sodium (132-148) mmol/L Chloride (98-107) mmol/L Glucose (65-105) mg/dL Lactate (0.7-2.1) mmol/L Vent Mode Mechanical Rate FiO2 % Tidal Volume PEEP Potassium (3.6-5.0) MMOL/L Carbon Dioxide (22-30) mmol/L Anion Gap (10-20) BUN (7-17) mg/dl Creatinine (0.7-1.2) mg/dl Est GFR ( Amer) Est GFR (Non-Af Amer) POC Glucose (mg/dL) 232 H 236 H (65-110) mg/dL Random Glucose (65-105) mg/dL Calcium (8.4-10.2) mg/dL Phosphorus (2.5-4.5) mg/dl Magnesium (1.6-2.3) MG/DL Total Bilirubin (0.2-1.3) mg/dl AST (14-36) U/L ALT (9-52) U/L Alkaline Phosphatase (38-126) U/L Total Creatine Kinase (30-135) U/L Total Protein (6.3-8.2) G/DL Albumin (3.5-5.0) g/dL Globulin (2.2-3.9) gm/dL Albumin/Globulin Ratio (1.0-2.1) Arterial Blood Potassium (3.6-5.2) mmol/L Fluid Type Spinal fluid CSF Volume 1 (0-1) mL CSF Appearance Clear/colorless (CLEAR) CSF WBC 1.0 (0.0-5.0) /mm3 CSF RBC 3.0 H (0.0-0.0) /mm3 CSF Total Cell Counted TEST NOT PERFORMED CSF Neutrophils [employer] CSF Monos/Macrophages TEST NOT PERFORMED CSF Glucose (40-70) mg/dL CSF Total Protein (12-60) mg/dL Valproic Acid (50.0-100.0) ug/mL HSV Source Description H.influenzae Type B Ag (NEGATIVE) Legionella Culture N.meningitidis ACY/W135 (NEGATIVE) N.meningi B/E.coli K1 Ag (NEGATIVE) Group B Strep Antigen (NEGATIVE) S. pneumoniae Antigen (NEGATIVE) 08/17/18 08/17/18 08/17/18 Range/Units 15:40 15:40 15:40 WBC (4.8-10.8) K/uL RBC (3.80-5.20) Mil/uL Hgb (12.0-16.0) g/dL Hct (34.0-47.0) % MCV (81.0-99.0) fl MCH (27.0-31.0) pg MCHC (33.0-37.0) g/dL RDW (11.5-14.5) % Plt Count (130-400) K/uL MPV (7.2-11.7) fl Neut % (Auto) (50.0-75.0) % Lymph % (Auto) (20.0-40.0) % Love % (Auto) (0.0-10.0) % Eos % (Auto) (0.0-4.0) % Baso % (Auto) (0.0-2.0) % Neut # (Auto) (1.8-7.0) K/uL Lymph # (Auto) (1.0-4.3) K/uL Love # (Auto) (0.0-0.8) K/uL Eos # (Auto) (0.0-0.7) K/uL Baso # (Auto) (0.0-0.2) K/uL pCO2 (35-45) mm/Hg pO2 (80-100) mm/Hg HCO3 (21-28) mmol/L ABG pH (7.35-7.45) ABG Total CO2 (22-28) mmol/L ABG O2 Saturation (95-98) % ABG O2 Content (15-23) ML/dL ABG Base Excess (-2.0-3.0) mmol/L ABG Hemoglobin (11.7-17.4) g/dL ABG Carboxyhemoglobin (0.5-1.5) % POC ABG HHb (Measured) (0.0-5.0) % ABG Methemoglobin (0.0-3.0) % ABG O2 Capacity (16-24) mL/dL Bridger Test ABG Potassium (3.6-5.2) mmol/L A-a O2 Difference mm/Hg Hgb O2 Saturation (95.0-98.0) % Sodium (132-148) mmol/L Chloride (98-107) mmol/L Glucose (65-105) mg/dL Lactate (0.7-2.1) mmol/L Vent Mode Mechanical Rate FiO2 % Tidal Volume PEEP Potassium (3.6-5.0) MMOL/L Carbon Dioxide (22-30) mmol/L Anion Gap (10-20) BUN (7-17) mg/dl Creatinine (0.7-1.2) mg/dl Est GFR ( Amer) Est GFR (Non-Af Amer) POC Glucose (mg/dL) (65-110) mg/dL Random Glucose (65-105) mg/dL Calcium (8.4-10.2) mg/dL Phosphorus (2.5-4.5) mg/dl Magnesium (1.6-2.3) MG/DL Total Bilirubin (0.2-1.3) mg/dl AST (14-36) U/L ALT (9-52) U/L Alkaline Phosphatase (38-126) U/L Total Creatine Kinase (30-135) U/L Total Protein (6.3-8.2) G/DL Albumin (3.5-5.0) g/dL Globulin (2.2-3.9) gm/dL Albumin/Globulin Ratio (1.0-2.1) Arterial Blood Potassium (3.6-5.2) mmol/L Fluid Type CSF Volume (0-1) mL CSF Appearance (CLEAR) CSF WBC (0.0-5.0) /mm3 CSF RBC (0.0-0.0) /mm3 CSF Total Cell Counted CSF Neutrophils CSF Monos/Macrophages CSF Glucose 169 H* (40-70) mg/dL CSF Total Protein 72.0 H (12-60) mg/dL Valproic Acid (50.0-100.0) ug/mL HSV Source Description Fluid H.influenzae Type B Ag Negative (NEGATIVE) Legionella Culture N.meningitidis ACY/W135 Negative (NEGATIVE) N.meningi B/E.coli K1 Ag Negative (NEGATIVE) Group B Strep Antigen Negative (NEGATIVE) S. pneumoniae Antigen Negative (NEGATIVE) 08/17/18 08/17/18 08/17/18 Range/Units 09:55 08:47 08:47 WBC (4.8-10.8) K/uL RBC (3.80-5.20) Mil/uL Hgb (12.0-16.0) g/dL Hct (34.0-47.0) % MCV (81.0-99.0) fl MCH (27.0-31.0) pg MCHC (33.0-37.0) g/dL RDW (11.5-14.5) % Plt Count (130-400) K/uL MPV (7.2-11.7) fl Neut % (Auto) (50.0-75.0) % Lymph % (Auto) (20.0-40.0) % Love % (Auto) (0.0-10.0) % Eos % (Auto) (0.0-4.0) % Baso % (Auto) (0.0-2.0) % Neut # (Auto) (1.8-7.0) K/uL Lymph # (Auto) (1.0-4.3) K/uL Love # (Auto) (0.0-0.8) K/uL Eos # (Auto) (0.0-0.7) K/uL Baso # (Auto) (0.0-0.2) K/uL pCO2 (35-45) mm/Hg pO2 (80-100) mm/Hg HCO3 (21-28) mmol/L ABG pH (7.35-7.45) ABG Total CO2 (22-28) mmol/L ABG O2 Saturation (95-98) % ABG O2 Content (15-23) ML/dL ABG Base Excess (-2.0-3.0) mmol/L ABG Hemoglobin (11.7-17.4) g/dL ABG Carboxyhemoglobin (0.5-1.5) % POC ABG HHb (Measured) (0.0-5.0) % ABG Methemoglobin (0.0-3.0) % ABG O2 Capacity (16-24) mL/dL Bridger Test ABG Potassium (3.6-5.2) mmol/L A-a O2 Difference mm/Hg Hgb O2 Saturation (95.0-98.0) % Sodium 143 (132-148) mmol/L Chloride 107 (98-107) mmol/L Glucose (65-105) mg/dL Lactate (0.7-2.1) mmol/L Vent Mode Mechanical Rate FiO2 % Tidal Volume PEEP Potassium 3.3 L (3.6-5.0) MMOL/L Carbon Dioxide 27 (22-30) mmol/L Anion Gap 12 (10-20) BUN 26 H (7-17) mg/dl Creatinine 0.8 (0.7-1.2) mg/dl Est GFR ( Amer) > 60 Est GFR (Non-Af Amer) > 60 POC Glucose (mg/dL) 321 H (65-110) mg/dL Random Glucose 341 H (65-105) mg/dL Calcium 9.0 (8.4-10.2) mg/dL Phosphorus 3.9 (2.5-4.5) mg/dl Magnesium 2.2 (1.6-2.3) MG/DL Total Bilirubin 0.5 (0.2-1.3) mg/dl AST 26 (14-36) U/L ALT 22 (9-52) U/L Alkaline Phosphatase 80 (38-126) U/L Total Creatine Kinase (30-135) U/L Total Protein 7.4 (6.3-8.2) G/DL Albumin 3.7 (3.5-5.0) g/dL Globulin 3.8 (2.2-3.9) gm/dL Albumin/Globulin Ratio 1.0 (1.0-2.1) Arterial Blood Potassium (3.6-5.2) mmol/L Fluid Type CSF Volume (0-1) mL CSF Appearance (CLEAR) CSF WBC (0.0-5.0) /mm3 CSF RBC (0.0-0.0) /mm3 CSF Total Cell Counted CSF Neutrophils CSF Monos/Macrophages CSF Glucose (40-70) mg/dL CSF Total Protein (12-60) mg/dL Valproic Acid 36.5 L (50.0-100.0) ug/mL HSV Source Description H.influenzae Type B Ag (NEGATIVE) Legionella Culture N.meningitidis ACY/W135 (NEGATIVE) N.meningi B/E.coli K1 Ag (NEGATIVE) Group B Strep Antigen (NEGATIVE) S. pneumoniae Antigen (NEGATIVE) 08/17/18 08/17/18 08/17/18 Range/Units 08:47 05:22 04:00 WBC 7.1 (4.8-10.8) K/uL RBC 3.88 (3.80-5.20) Mil/uL Hgb 10.2 L (12.0-16.0) g/dL Hct 32.1 L (34.0-47.0) % MCV 82.6 D (81.0-99.0) fl MCH 26.3 L (27.0-31.0) pg MCHC 31.8 L (33.0-37.0) g/dL RDW 15.5 H (11.5-14.5) % Plt Count 418 H (130-400) K/uL MPV 8.6 (7.2-11.7) fl Neut % (Auto) 56.4 (50.0-75.0) % Lymph % (Auto) 35.8 (20.0-40.0) % Love % (Auto) 6.4 (0.0-10.0) % Eos % (Auto) 0.5 (0.0-4.0) % Baso % (Auto) 0.9 (0.0-2.0) % Neut # (Auto) 4.0 (1.8-7.0) K/uL Lymph # (Auto) 2.6 (1.0-4.3) K/uL Love # (Auto) 0.5 (0.0-0.8) K/uL Eos # (Auto) 0.0 (0.0-0.7) K/uL Baso # (Auto) 0.1 (0.0-0.2) K/uL pCO2 42 (35-45) mm/Hg pO2 162 H (80-100) mm/Hg HCO3 28.0 (21-28) mmol/L ABG pH 7.44 (7.35-7.45) ABG Total CO2 29.8 H (22-28) mmol/L ABG O2 Saturation 98.7 H (95-98) % ABG O2 Content (15-23) ML/dL ABG Base Excess 3.9 H (-2.0-3.0) mmol/L ABG Hemoglobin (11.7-17.4) g/dL ABG Carboxyhemoglobin (0.5-1.5) % POC ABG HHb (Measured) (0.0-5.0) % ABG Methemoglobin (0.0-3.0) % ABG O2 Capacity (16-24) mL/dL Bridger Test Yes ABG Potassium 3.3 L (3.6-5.2) mmol/L A-a O2 Difference 71.0 mm/Hg Hgb O2 Saturation (95.0-98.0) % Sodium 143.0 (132-148) mmol/L Chloride 107.0 (98-107) mmol/L Glucose 395 H (65-105) mg/dL Lactate 1.8 (0.7-2.1) mmol/L Vent Mode A/c Mechanical Rate 14 FiO2 40.0 % Tidal Volume 450 PEEP 5 Potassium (3.6-5.0) MMOL/L Carbon Dioxide (22-30) mmol/L Anion Gap (10-20) BUN (7-17) mg/dl Creatinine (0.7-1.2) mg/dl Est GFR ( Amer) Est GFR (Non-Af Amer) POC Glucose (mg/dL) 390 H (65-110) mg/dL Random Glucose (65-105) mg/dL Calcium (8.4-10.2) mg/dL Phosphorus (2.5-4.5) mg/dl Magnesium (1.6-2.3) MG/DL Total Bilirubin (0.2-1.3) mg/dl AST (14-36) U/L ALT (9-52) U/L Alkaline Phosphatase (38-126) U/L Total Creatine Kinase (30-135) U/L Total Protein (6.3-8.2) G/DL Albumin (3.5-5.0) g/dL Globulin (2.2-3.9) gm/dL Albumin/Globulin Ratio (1.0-2.1) Arterial Blood Potassium 3.3 L (3.6-5.2) mmol/L Fluid Type CSF Volume (0-1) mL CSF Appearance (CLEAR) CSF WBC (0.0-5.0) /mm3 CSF RBC (0.0-0.0) /mm3 CSF Total Cell Counted CSF Neutrophils CSF Monos/Macrophages CSF Glucose (40-70) mg/dL CSF Total Protein (12-60) mg/dL Valproic Acid (50.0-100.0) ug/mL HSV Source Description H.influenzae Type B Ag (NEGATIVE) Legionella Culture N.meningitidis ACY/W135 (NEGATIVE) N.meningi B/E.coli K1 Ag (NEGATIVE) Group B Strep Antigen (NEGATIVE) S. pneumoniae Antigen (NEGATIVE) 08/16/18 08/16/18 08/16/18 Range/Units 21:38 17:02 11:25 WBC (4.8-10.8) K/uL RBC (3.80-5.20) Mil/uL Hgb (12.0-16.0) g/dL Hct (34.0-47.0) % MCV (81.0-99.0) fl MCH (27.0-31.0) pg MCHC (33.0-37.0) g/dL RDW (11.5-14.5) % Plt Count (130-400) K/uL MPV (7.2-11.7) fl Neut % (Auto) (50.0-75.0) % Lymph % (Auto) (20.0-40.0) % Love % (Auto) (0.0-10.0) % Eos % (Auto) (0.0-4.0) % Baso % (Auto) (0.0-2.0) % Neut # (Auto) (1.8-7.0) K/uL Lymph # (Auto) (1.0-4.3) K/uL Love # (Auto) (0.0-0.8) K/uL Eos # (Auto) (0.0-0.7) K/uL Baso # (Auto) (0.0-0.2) K/uL pCO2 (35-45) mm/Hg pO2 (80-100) mm/Hg HCO3 (21-28) mmol/L ABG pH (7.35-7.45) ABG Total CO2 (22-28) mmol/L ABG O2 Saturation (95-98) % ABG O2 Content (15-23) ML/dL ABG Base Excess (-2.0-3.0) mmol/L ABG Hemoglobin (11.7-17.4) g/dL ABG Carboxyhemoglobin (0.5-1.5) % POC ABG HHb (Measured) (0.0-5.0) % ABG Methemoglobin (0.0-3.0) % ABG O2 Capacity (16-24) mL/dL Bridger Test ABG Potassium (3.6-5.2) mmol/L A-a O2 Difference mm/Hg Hgb O2 Saturation (95.0-98.0) % Sodium (132-148) mmol/L Chloride (98-107) mmol/L Glucose (65-105) mg/dL Lactate (0.7-2.1) mmol/L Vent Mode Mechanical Rate FiO2 % Tidal Volume PEEP Potassium (3.6-5.0) MMOL/L Carbon Dioxide (22-30) mmol/L Anion Gap (10-20) BUN (7-17) mg/dl Creatinine (0.7-1.2) mg/dl Est GFR ( Amer) Est GFR (Non-Af Amer) POC Glucose (mg/dL) 267 H 273 H 227 H (65-110) mg/dL Random Glucose (65-105) mg/dL Calcium (8.4-10.2) mg/dL Phosphorus (2.5-4.5) mg/dl Magnesium (1.6-2.3) MG/DL Total Bilirubin (0.2-1.3) mg/dl AST (14-36) U/L ALT (9-52) U/L Alkaline Phosphatase (38-126) U/L Total Creatine Kinase (30-135) U/L Total Protein (6.3-8.2) G/DL Albumin (3.5-5.0) g/dL Globulin (2.2-3.9) gm/dL Albumin/Globulin Ratio (1.0-2.1) Arterial Blood Potassium (3.6-5.2) mmol/L Fluid Type CSF Volume (0-1) mL CSF Appearance (CLEAR) CSF WBC (0.0-5.0) /mm3 CSF RBC (0.0-0.0) /mm3 CSF Total Cell Counted CSF Neutrophils CSF Monos/Macrophages CSF Glucose (40-70) mg/dL CSF Total Protein (12-60) mg/dL Valproic Acid (50.0-100.0) ug/mL HSV Source Description H.influenzae Type B Ag (NEGATIVE) Legionella Culture N.meningitidis ACY/W135 (NEGATIVE) N.meningi B/E.coli K1 Ag (NEGATIVE) Group B Strep Antigen (NEGATIVE) S. pneumoniae Antigen (NEGATIVE) 08/16/18 08/15/18 08/15/18 Range/Units 05:28 21:32 16:18 WBC (4.8-10.8) K/uL RBC (3.80-5.20) Mil/uL Hgb (12.0-16.0) g/dL Hct (34.0-47.0) % MCV (81.0-99.0) fl MCH (27.0-31.0) pg MCHC (33.0-37.0) g/dL RDW (11.5-14.5) % Plt Count (130-400) K/uL MPV (7.2-11.7) fl Neut % (Auto) (50.0-75.0) % Lymph % (Auto) (20.0-40.0) % Love % (Auto) (0.0-10.0) % Eos % (Auto) (0.0-4.0) % Baso % (Auto) (0.0-2.0) % Neut # (Auto) (1.8-7.0) K/uL Lymph # (Auto) (1.0-4.3) K/uL Love # (Auto) (0.0-0.8) K/uL Eos # (Auto) (0.0-0.7) K/uL Baso # (Auto) (0.0-0.2) K/uL pCO2 (35-45) mm/Hg pO2 (80-100) mm/Hg HCO3 (21-28) mmol/L ABG pH (7.35-7.45) ABG Total CO2 (22-28) mmol/L ABG O2 Saturation (95-98) % ABG O2 Content (15-23) ML/dL ABG Base Excess (-2.0-3.0) mmol/L ABG Hemoglobin (11.7-17.4) g/dL ABG Carboxyhemoglobin (0.5-1.5) % POC ABG HHb (Measured) (0.0-5.0) % ABG Methemoglobin (0.0-3.0) % ABG O2 Capacity (16-24) mL/dL Bridger Test ABG Potassium (3.6-5.2) mmol/L A-a O2 Difference mm/Hg Hgb O2 Saturation (95.0-98.0) % Sodium (132-148) mmol/L Chloride (98-107) mmol/L Glucose (65-105) mg/dL Lactate (0.7-2.1) mmol/L Vent Mode Mechanical Rate FiO2 % Tidal Volume PEEP Potassium (3.6-5.0) MMOL/L Carbon Dioxide (22-30) mmol/L Anion Gap (10-20) BUN (7-17) mg/dl Creatinine (0.7-1.2) mg/dl Est GFR ( Amer) Est GFR (Non-Af Amer) POC Glucose (mg/dL) 319 H 257 H 236 H (65-110) mg/dL Random Glucose (65-105) mg/dL Calcium (8.4-10.2) mg/dL Phosphorus (2.5-4.5) mg/dl Magnesium (1.6-2.3) MG/DL Total Bilirubin (0.2-1.3) mg/dl AST (14-36) U/L ALT (9-52) U/L Alkaline Phosphatase (38-126) U/L Total Creatine Kinase (30-135) U/L Total Protein (6.3-8.2) G/DL Albumin (3.5-5.0) g/dL Globulin (2.2-3.9) gm/dL Albumin/Globulin Ratio (1.0-2.1) Arterial Blood Potassium (3.6-5.2) mmol/L Fluid Type CSF Volume (0-1) mL CSF Appearance (CLEAR) CSF WBC (0.0-5.0) /mm3 CSF RBC (0.0-0.0) /mm3 CSF Total Cell Counted CSF Neutrophils CSF Monos/Macrophages CSF Glucose (40-70) mg/dL CSF Total Protein (12-60) mg/dL Valproic Acid (50.0-100.0) ug/mL HSV Source Description H.influenzae Type B Ag (NEGATIVE) Legionella Culture N.meningitidis ACY/W135 (NEGATIVE) N.meningi B/E.coli K1 Ag (NEGATIVE) Group B Strep Antigen (NEGATIVE) S. pneumoniae Antigen (NEGATIVE) 08/15/18 08/15/18 08/05/18 Range/Units 11:42 04:27 08:18 WBC (4.8-10.8) K/uL RBC (3.80-5.20) Mil/uL Hgb (12.0-16.0) g/dL Hct (34.0-47.0) % MCV (81.0-99.0) fl MCH (27.0-31.0) pg MCHC (33.0-37.0) g/dL RDW (11.5-14.5) % Plt Count (130-400) K/uL MPV (7.2-11.7) fl Neut % (Auto) (50.0-75.0) % Lymph % (Auto) (20.0-40.0) % Love % (Auto) (0.0-10.0) % Eos % (Auto) (0.0-4.0) % Baso % (Auto) (0.0-2.0) % Neut # (Auto) (1.8-7.0) K/uL Lymph # (Auto) (1.0-4.3) K/uL Love # (Auto) (0.0-0.8) K/uL Eos # (Auto) (0.0-0.7) K/uL Baso # (Auto) (0.0-0.2) K/uL pCO2 (35-45) mm/Hg pO2 (80-100) mm/Hg HCO3 (21-28) mmol/L ABG pH (7.35-7.45) ABG Total CO2 (22-28) mmol/L ABG O2 Saturation (95-98) % ABG O2 Content (15-23) ML/dL ABG Base Excess (-2.0-3.0) mmol/L ABG Hemoglobin (11.7-17.4) g/dL ABG Carboxyhemoglobin (0.5-1.5) % POC ABG HHb (Measured) (0.0-5.0) % ABG Methemoglobin (0.0-3.0) % ABG O2 Capacity (16-24) mL/dL Bridger Test ABG Potassium (3.6-5.2) mmol/L A-a O2 Difference mm/Hg Hgb O2 Saturation (95.0-98.0) % Sodium (132-148) mmol/L Chloride (98-107) mmol/L Glucose (65-105) mg/dL Lactate (0.7-2.1) mmol/L Vent Mode Mechanical Rate FiO2 % Tidal Volume PEEP Potassium (3.6-5.0) MMOL/L Carbon Dioxide (22-30) mmol/L Anion Gap (10-20) BUN (7-17) mg/dl Creatinine (0.7-1.2) mg/dl Est GFR ( Amer) Est GFR (Non-Af Amer) POC Glucose (mg/dL) 258 H 239 H (65-110) mg/dL Random Glucose (65-105) mg/dL Calcium (8.4-10.2) mg/dL Phosphorus (2.5-4.5) mg/dl Magnesium (1.6-2.3) MG/DL Total Bilirubin (0.2-1.3) mg/dl AST (14-36) U/L ALT (9-52) U/L Alkaline Phosphatase (38-126) U/L Total Creatine Kinase (30-135) U/L Total Protein (6.3-8.2) G/DL Albumin (3.5-5.0) g/dL Globulin (2.2-3.9) gm/dL Albumin/Globulin Ratio (1.0-2.1) Arterial Blood Potassium (3.6-5.2) mmol/L Fluid Type CSF Volume (0-1) mL CSF Appearance (CLEAR) CSF WBC (0.0-5.0) /mm3 CSF RBC (0.0-0.0) /mm3 CSF Total Cell Counted CSF Neutrophils CSF Monos/Macrophages CSF Glucose (40-70) mg/dL CSF Total Protein (12-60) mg/dL Valproic Acid (50.0-100.0) ug/mL HSV Source Description H.influenzae Type B Ag (NEGATIVE) Legionella Culture See note N.meningitidis ACY/W135 (NEGATIVE) N.meningi B/E.coli K1 Ag (NEGATIVE) Group B Strep Antigen (NEGATIVE) S. pneumoniae Antigen (NEGATIVE) Laboratory Results - last 24 hr 08/05/18 08/15/18 08/15/18 08:18 04:27 11:42 WBC RBC Hgb Hct MCV MCH MCHC RDW Plt Count MPV Neut % (Auto) Lymph % (Auto) Love % (Auto) Eos % (Auto) Baso % (Auto) Neut # (Auto) Lymph # (Auto) Love # (Auto) Eos # (Auto) Baso # (Auto) pCO2 pO2 HCO3 ABG pH ABG Total CO2 ABG O2 Saturation ABG O2 Content ABG Base Excess ABG Hemoglobin ABG Carboxyhemoglobin POC ABG HHb (Measured) ABG Methemoglobin ABG O2 Capacity Bridger Test ABG Potassium A-a O2 Difference Hgb O2 Saturation Sodium Chloride Glucose Lactate Vent Mode Mechanical Rate FiO2 Tidal Volume PEEP Potassium Carbon Dioxide Anion Gap BUN Creatinine Est GFR ( Amer) Est GFR (Non-Af Amer) POC Glucose (mg/dL) 239 H 258 H Random Glucose Calcium Phosphorus Magnesium Total Bilirubin AST ALT Alkaline Phosphatase Total Creatine Kinase Total Protein Albumin Globulin Albumin/Globulin Ratio Arterial Blood Potassium Fluid Type CSF Volume CSF Appearance CSF WBC CSF RBC CSF Total Cell Counted CSF Neutrophils CSF Monos/Macrophages CSF Glucose CSF Total Protein Valproic Acid HSV Source Description H.influenzae Type B Ag Legionella Culture See note N.meningitidis ACY/W135 N.meningi B/E.coli K1 Ag Group B Strep Antigen S. pneumoniae Antigen 08/15/18 08/15/18 08/16/18 16:18 21:32 05:28 WBC RBC Hgb Hct MCV MCH MCHC RDW Plt Count MPV Neut % (Auto) Lymph % (Auto) Love % (Auto) Eos % (Auto) Baso % (Auto) Neut # (Auto) Lymph # (Auto) Love # (Auto) Eos # (Auto) Baso # (Auto) pCO2 pO2 HCO3 ABG pH ABG Total CO2 ABG O2 Saturation ABG O2 Content ABG Base Excess ABG Hemoglobin ABG Carboxyhemoglobin POC ABG HHb (Measured) ABG Methemoglobin ABG O2 Capacity Bridger Test ABG Potassium A-a O2 Difference Hgb O2 Saturation Sodium Chloride Glucose Lactate Vent Mode Mechanical Rate FiO2 Tidal Volume PEEP Potassium Carbon Dioxide Anion Gap BUN Creatinine Est GFR ( Amer) Est GFR (Non-Af Amer) POC Glucose (mg/dL) 236 H 257 H 319 H Random Glucose Calcium Phosphorus Magnesium Total Bilirubin AST ALT Alkaline Phosphatase Total Creatine Kinase Total Protein Albumin Globulin Albumin/Globulin Ratio Arterial Blood Potassium Fluid Type CSF Volume CSF Appearance CSF WBC CSF RBC CSF Total Cell Counted CSF Neutrophils CSF Monos/Macrophages CSF Glucose CSF Total Protein Valproic Acid HSV Source Description H.influenzae Type B Ag Legionella Culture N.meningitidis ACY/W135 N.meningi B/E.coli K1 Ag Group B Strep Antigen S. pneumoniae Antigen 08/16/18 08/16/18 08/16/18 11:25 17:02 21:38 WBC RBC Hgb Hct MCV MCH MCHC RDW Plt Count MPV Neut % (Auto) Lymph % (Auto) Love % (Auto) Eos % (Auto) Baso % (Auto) Neut # (Auto) Lymph # (Auto) Love # (Auto) Eos # (Auto) Baso # (Auto) pCO2 pO2 HCO3 ABG pH ABG Total CO2 ABG O2 Saturation ABG O2 Content ABG Base Excess ABG Hemoglobin ABG Carboxyhemoglobin POC ABG HHb (Measured) ABG Methemoglobin ABG O2 Capacity Bridger Test ABG Potassium A-a O2 Difference Hgb O2 Saturation Sodium Chloride Glucose Lactate Vent Mode Mechanical Rate FiO2 Tidal Volume PEEP Potassium Carbon Dioxide Anion Gap BUN Creatinine Est GFR ( Amer) Est GFR (Non-Af Amer) POC Glucose (mg/dL) 227 H 273 H 267 H Random Glucose Calcium Phosphorus Magnesium Total Bilirubin AST ALT Alkaline Phosphatase Total Creatine Kinase Total Protein Albumin Globulin Albumin/Globulin Ratio Arterial Blood Potassium Fluid Type CSF Volume CSF Appearance CSF WBC CSF RBC CSF Total Cell Counted CSF Neutrophils CSF Monos/Macrophages CSF Glucose CSF Total Protein Valproic Acid HSV Source Description H.influenzae Type B Ag Legionella Culture N.meningitidis ACY/W135 N.meningi B/E.coli K1 Ag Group B Strep Antigen S. pneumoniae Antigen 08/17/18 08/17/18 08/17/18 04:00 05:22 08:47 WBC 7.1 RBC 3.88 Hgb 10.2 L Hct 32.1 L MCV 82.6 D MCH 26.3 L MCHC 31.8 L RDW 15.5 H Plt Count 418 H MPV 8.6 Neut % (Auto) 56.4 Lymph % (Auto) 35.8 Love % (Auto) 6.4 Eos % (Auto) 0.5 Baso % (Auto) 0.9 Neut # (Auto) 4.0 Lymph # (Auto) 2.6 Love # (Auto) 0.5 Eos # (Auto) 0.0 Baso # (Auto) 0.1 pCO2 42 pO2 162 H HCO3 28.0 ABG pH 7.44 ABG Total CO2 29.8 H ABG O2 Saturation 98.7 H ABG O2 Content ABG Base Excess 3.9 H ABG Hemoglobin ABG Carboxyhemoglobin POC ABG HHb (Measured) ABG Methemoglobin ABG O2 Capacity Bridger Test Yes ABG Potassium 3.3 L A-a O2 Difference 71.0 Hgb O2 Saturation Sodium 143.0 Chloride 107.0 Glucose 395 H Lactate 1.8 Vent Mode A/c Mechanical Rate 14 FiO2 40.0 Tidal Volume 450 PEEP 5 Potassium Carbon Dioxide Anion Gap BUN Creatinine Est GFR ( Amer) Est GFR (Non-Af Amer) POC Glucose (mg/dL) 390 H Random Glucose Calcium Phosphorus Magnesium Total Bilirubin AST ALT Alkaline Phosphatase Total Creatine Kinase Total Protein Albumin Globulin Albumin/Globulin Ratio Arterial Blood Potassium 3.3 L Fluid Type CSF Volume CSF Appearance CSF WBC CSF RBC CSF Total Cell Counted CSF Neutrophils CSF Monos/Macrophages CSF Glucose CSF Total Protein Valproic Acid HSV Source Description H.influenzae Type B Ag Legionella Culture N.meningitidis ACY/W135 N.meningi B/E.coli K1 Ag Group B Strep Antigen S. pneumoniae Antigen 08/17/18 08/17/18 08/17/18 08:47 08:47 09:55 WBC RBC Hgb Hct MCV MCH MCHC RDW Plt Count MPV Neut % (Auto) Lymph % (Auto) Love % (Auto) Eos % (Auto) Baso % (Auto) Neut # (Auto) Lymph # (Auto) Love # (Auto) Eos # (Auto) Baso # (Auto) pCO2 pO2 HCO3 ABG pH ABG Total CO2 ABG O2 Saturation ABG O2 Content ABG Base Excess ABG Hemoglobin ABG Carboxyhemoglobin POC ABG HHb (Measured) ABG Methemoglobin ABG O2 Capacity Bridger Test ABG Potassium A-a O2 Difference Hgb O2 Saturation Sodium 143 Chloride 107 Glucose Lactate Vent Mode Mechanical Rate FiO2 Tidal Volume PEEP Potassium 3.3 L Carbon Dioxide 27 Anion Gap 12 BUN 26 H Creatinine 0.8 Est GFR ( Amer) > 60 Est GFR (Non-Af Amer) > 60 POC Glucose (mg/dL) 321 H Random Glucose 341 H Calcium 9.0 Phosphorus 3.9 Magnesium 2.2 Total Bilirubin 0.5 AST 26 ALT 22 Alkaline Phosphatase 80 Total Creatine Kinase Total Protein 7.4 Albumin 3.7 Globulin 3.8 Albumin/Globulin Ratio 1.0 Arterial Blood Potassium Fluid Type CSF Volume CSF Appearance CSF WBC CSF RBC CSF Total Cell Counted CSF Neutrophils CSF Monos/Macrophages CSF Glucose CSF Total Protein Valproic Acid 36.5 L HSV Source Description H.influenzae Type B Ag Legionella Culture N.meningitidis ACY/W135 N.meningi B/E.coli K1 Ag Group B Strep Antigen S. pneumoniae Antigen 08/17/18 08/17/18 08/17/18 15:40 15:40 15:40 WBC RBC Hgb Hct MCV MCH MCHC RDW Plt Count MPV Neut % (Auto) Lymph % (Auto) Love % (Auto) Eos % (Auto) Baso % (Auto) Neut # (Auto) Lymph # (Auto) Love # (Auto) Eos # (Auto) Baso # (Auto) pCO2 pO2 HCO3 ABG pH ABG Total CO2 ABG O2 Saturation ABG O2 Content ABG Base Excess ABG Hemoglobin ABG Carboxyhemoglobin POC ABG HHb (Measured) ABG Methemoglobin ABG O2 Capacity Bridger Test ABG Potassium A-a O2 Difference Hgb O2 Saturation Sodium Chloride Glucose Lactate Vent Mode Mechanical Rate FiO2 Tidal Volume PEEP Potassium Carbon Dioxide Anion Gap BUN Creatinine Est GFR ( Amer) Est GFR (Non-Af Amer) POC Glucose (mg/dL) Random Glucose Calcium Phosphorus Magnesium Total Bilirubin AST ALT Alkaline Phosphatase Total Creatine Kinase Total Protein Albumin Globulin Albumin/Globulin Ratio Arterial Blood Potassium Fluid Type CSF Volume CSF Appearance CSF WBC CSF RBC CSF Total Cell Counted CSF Neutrophils CSF Monos/Macrophages CSF Glucose 169 H* CSF Total Protein 72.0 H Valproic Acid HSV Source Description Fluid H.influenzae Type B Ag Negative Legionella Culture N.meningitidis ACY/W135 Negative N.meningi B/E.coli K1 Ag Negative Group B Strep Antigen Negative S. pneumoniae Antigen Negative 08/17/18 08/17/18 08/17/18 15:40 16:42 22:01 WBC RBC Hgb Hct MCV MCH MCHC RDW Plt Count MPV Neut % (Auto) Lymph % (Auto) Love % (Auto) Eos % (Auto) Baso % (Auto) Neut # (Auto) Lymph # (Auto) Love # (Auto) Eos # (Auto) Baso # (Auto) pCO2 pO2 HCO3 ABG pH ABG Total CO2 ABG O2 Saturation ABG O2 Content ABG Base Excess ABG Hemoglobin ABG Carboxyhemoglobin POC ABG HHb (Measured) ABG Methemoglobin ABG O2 Capacity Bridger Test ABG Potassium A-a O2 Difference Hgb O2 Saturation Sodium Chloride Glucose Lactate Vent Mode Mechanical Rate FiO2 Tidal Volume PEEP Potassium Carbon Dioxide Anion Gap BUN Creatinine Est GFR ( Amer) Est GFR (Non-Af Amer) POC Glucose (mg/dL) 236 H 232 H Random Glucose Calcium Phosphorus Magnesium Total Bilirubin AST ALT Alkaline Phosphatase Total Creatine Kinase Total Protein Albumin Globulin Albumin/Globulin Ratio Arterial Blood Potassium Fluid Type Spinal fluid CSF Volume 1 CSF Appearance Clear/colorless CSF WBC 1.0 CSF RBC 3.0 H CSF Total Cell Counted TEST NOT PERFORMED CSF Neutrophils Business Mail Entry Clerk CSF Monos/Macrophages TEST NOT PERFORMED CSF Glucose CSF Total Protein Valproic Acid HSV Source Description H.influenzae Type B Ag Legionella Culture N.meningitidis ACY/W135 N.meningi B/E.coli K1 Ag Group B Strep Antigen S. pneumoniae Antigen 08/18/18 08/18/18 08/18/18 04:17 04:30 04:30 WBC 6.8 RBC 4.05 Hgb 10.5 L Hct 32.7 L MCV 80.8 L MCH 25.9 L MCHC 32.1 L RDW 15.5 H Plt Count 345 MPV Neut % (Auto) Lymph % (Auto) Love % (Auto) Eos % (Auto) Baso % (Auto) Neut # (Auto) Lymph # (Auto) Love # (Auto) Eos # (Auto) Baso # (Auto) pCO2 34 L pO2 91 HCO3 31.0 H ABG pH 7.56 H ABG Total CO2 31.4 H ABG O2 Saturation 98.5 H ABG O2 Content 13.5 L ABG Base Excess 7.8 H ABG Hemoglobin 9.9 L ABG Carboxyhemoglobin 1.4 POC ABG HHb (Measured) 1.5 ABG Methemoglobin 0.9 ABG O2 Capacity 13.7 L Bridger Test Yes ABG Potassium A-a O2 Difference 152.0 Hgb O2 Saturation 96.2 Sodium 146 Chloride 108 H Glucose Lactate Vent Mode A/c Mechanical Rate 14 FiO2 40.0 Tidal Volume 450 PEEP 5 Potassium 3.6 Carbon Dioxide 29 Anion Gap 13 BUN 23 H Creatinine 0.6 L Est GFR ( Amer) > 60 Est GFR (Non-Af Amer) > 60 POC Glucose (mg/dL) Random Glucose 204 H Calcium 9.9 Phosphorus Magnesium Total Bilirubin 0.5 AST 20 ALT 22 Alkaline Phosphatase 85 Total Creatine Kinase 119 Total Protein 7.9 Albumin 3.9 Globulin 4.0 H Albumin/Globulin Ratio 1.0 Arterial Blood Potassium Fluid Type CSF Volume CSF Appearance CSF WBC CSF RBC CSF Total Cell Counted CSF Neutrophils CSF Monos/Macrophages CSF Glucose CSF Total Protein Valproic Acid HSV Source Description H.influenzae Type B Ag Legionella Culture N.meningitidis ACY/W135 N.meningi B/E.coli K1 Ag Group B Strep Antigen S. pneumoniae Antigen Fingerstick Blood Sugar Results: 232 Review of Systems - Review of Systems Systems not reviewed;Unavailable: Intubated Critical Care Progress Note - Nutrition Nutrition: Nutrition Category Date Time Status NPO Diet [DIET] Diets 08/04/18 Breakfast Active Assessment/Plan - Assessment and Plan (Free Text) Assessment: 62 yo F with pmhx of HTN, DM2, Hypothyroid, GERD, schizophrenia s/p fall in snf, admitted for sepsis secondary to pneumonia, experienced an episode of bradycardia and code blue was called for PEA with ROSC after epinephrine x3. Plan: AMS - possibly 2/2 Toxic metabolic encephalopathy - Schizophrenia - Intubated - Neuro: Dr. Corona: 24 HR EEG - MRI: 08/14 - Psych: Dr. Skinner - d/c Clozapine - Risperdone - LP on 08/17/2018: F/U results - s/p Empiric IV Acyclovir Intubation -Mechanical ventilation -Reintubated on 08/12/2018 2/2 hypercarbia and hypoxemia Pneumonia -BCX neg x 3D (x2) -UCX yeast -AFB negative x3 -sputum: normal dolores -Quant gold: indeterminate -Legionella: negative -CXR: serial -Continue: IVABX: zosyn -s/p Vancomycin -ID: Dr. Castorena: continue IV ABX s/p Cardiac arrest -ROSC -EKG NSR -troponin: neg x4 Sepsis - Lactic acid: 1.9 from 3.2 on admission - BCX neg x 48 hrs (x2) - UCX Yeast - afebrile now UTI -UCX; yeast -fluconazole IV DM 2 - SS Insulin medium coverage - Januvia - Metformin held HTN -Losartan 100 mg -Amlodipine -Vasotec Schizophrenia -Risperidone Constipation - Lactulose Hypothyroid - Levothyroxine 50 mcg Seizure activity -Resolved -Dr. Keller: focal seizure on EEG; keppra 1000 mg BID; D/C Clozapine -CT head: No intracranial hemorrhage or mass effect. Cerebral atrophy and similar chronic microvascular ischemic changes. Paranasal sinus inflammatory changes-interval air-fluid level/sinusitis sphenoid sinus now noted. -Brain MRI: 08/14/2018 -Keppra -Depakote PT -Held: for out of bed trial when extubated DVT/GI prophylaxis: -Lovenox -Protonix IV Case dw Dr. Wilver Naranjo MD PGY2 <Kartik Pettit V - Last Filed: 08/18/18 16:49> CCU Subjective - Physician Review Events Since Last Encounter (Free Text): 08/18/18 16:48 patient is seen and examined at bedside. case discussed in am rounds. agree with plan of care as detailed in resident's note CCU Objective - Vital Signs / Intake & Output Vital Signs (Last 4 hours): Vital Signs Pulse Resp BP Pulse Ox 08/18/18 14:00 67 20 164/75 H 100 Intake and Output (Last 8hrs): Intake & Output 08/18/18 08/18/18 08/18/18 06:59 14:59 22:59 Intake Total 1164 630 Output Total 1350 Balance -186 630 Intake: IV 54 10 Intake, Piggyback 100 200 Tube Feeding 510 420 Free Water Flush 500 Output: Urine 1350 Urethral (Ray) 1350 - Medications Active Medications: Active Medications Generic Name Dose Route Start Last Admin Trade Name Freq PRN Reason Stop Dose Admin Acetaminophen 650 mg 08/03/18 03:33 08/05/18 05:35 Tylenol 325mg Tab PO 650 mg Q6 PRN Administration Fever >100.4 F Acetaminophen 650 mg 08/15/18 22:15 08/18/18 11:22 Tylenol 650mg/20.3ml Solution Ud PO 650 mg Q6 PRN Administration Temperature Albuterol/Ipratropium 3 ml 08/16/18 14:00 08/18/18 13:14 Duoneb 3 Mg/0.5 Mg (3 Ml) Ud INH 3 ml RQ6 LESLIE Administration Amlodipine Besylate 10 mg 08/03/18 09:00 08/18/18 08:43 Norvasc PO 10 mg DAILY LESLIE Administration Atorvastatin Calcium 10 mg 08/03/18 22:00 08/17/18 21:53 Lipitor PO 10 mg HS LESLIE Administration Carvedilol 25 mg 08/15/18 21:00 08/18/18 11:35 Coreg PO 25 mg Q12 LESLIE Administration Dextrose 0 ml 08/03/18 03:35 Dextrose 50% Inj IV STAT PRN Hypoglycemia Protocol Protocol Dextrose 0 gm 08/03/18 03:35 Glutose 15 PO ONCE PRN Hypoglycemia Protocol Protocol Divalproex Sodium 1,250 mg 08/03/18 22:00 08/16/18 21:43 Depakote Er(Once Daily) PO 1,250 mg HS LESLIE Administration Enalaprilat 2.5 mg 08/17/18 03:15 08/18/18 11:23 Vasotec IVP 2.5 mg Q6H LESLIE Administration Enoxaparin Sodium 40 mg 08/09/18 09:00 08/18/18 11:25 Lovenox SC 40 mg DAILY LESLIE Administration Protocol Escitalopram Oxalate 10 mg 08/03/18 22:00 08/17/18 21:53 Lexapro PO 10 mg HS LESLIE Administration Glucagon 0 mg 08/03/18 03:35 Glucagen Diagnostic Kit IM STAT PRN Hypoglycemia Protocol Protocol Haloperidol Lactate 5 mg 08/12/18 13:03 08/13/18 09:45 Haldol IVP 5 mg Q8 PRN Administration Agitation Hydralazine HCl 20 mg 08/16/18 14:00 Apresoline IV Q4H PRN Systolic Blood Pressure Hydralazine HCl 50 mg 08/18/18 10:00 08/18/18 11:33 Apresoline PO 50 mg Q6 LESLIE Administration Levetiracetam 1,000 mg/ Sodium 110 mls @ 110 mls/hr 08/06/18 15:00 08/18/18 15:03 Chloride IVPB 110 mls/hr Q12@0300,1500 LESLIE Administration Ceftriaxone Sodium 2 gm/ 100 mls @ 100 mls/hr 08/15/18 09:00 08/18/18 08:44 Sodium Chloride IVPB 100 mls/hr Q12 LESLIE Administration Protocol Fluconazole 50 mls @ 50 mls/hr 08/17/18 14:00 08/18/18 12:06 Diflucan Iv 100 Mg/50 Ml Ns IVPB 50 mls/hr DAILY LESLIE Administration Protocol Dexmedetomidine HCl 400 mcg/ 100 mls @ 11.11 mls/hr 08/18/18 14:58 Sodium Chloride IV 08/18/18 23:58 .Q9H1M ONE Protocol 0.5 MCG/KG/HR Ibuprofen 600 mg 08/03/18 13:30 08/16/18 02:47 Motrin Tab PO 600 mg Q6 PRN Administration Fever >100.4 F Insulin Detemir 35 units 08/17/18 22:00 08/17/18 21:55 Levemir SC 35 units HS LESLIE Administration Insulin Human Lispro 0 units 08/14/18 12:00 08/18/18 11:31 Humalog SC 2 units Q6 LESLIE Administration Protocol Lactulose 20 gm 08/08/18 17:16 08/16/18 21:51 Enulose PO 20 gm Q12 PRN Administration Constipation Levothyroxine Sodium 50 mcg 08/04/18 06:30 08/18/18 06:07 Synthroid PO 50 mcg DAILY@0630 LESLIE Administration Losartan Potassium 100 mg 08/10/18 09:00 08/18/18 11:34 Cozaar PO 100 mg DAILY LESLIE Administration Multivitamins/Minerals 1 tab 08/03/18 09:00 08/11/18 09:03 Therapeutic-M Tab PO Not Given DAILY LESLIE Pantoprazole Sodium 40 mg 08/11/18 09:45 08/18/18 08:42 Protonix Inj IVP 40 mg DAILY LESLIE Administration Risperidone 0.25 mg 08/15/18 17:00 08/18/18 08:44 Risperidone Odt 0.25mg PO 0.25 mg BID LESLIE Administration Sitagliptin Phosphate 100 mg 08/03/18 22:00 08/17/18 21:54 Januvia PO 100 mg HS LESLIE Administration - Patient Studies Lab Studies: Microbiology Studies 08/15/18 10:25 Blood Culture - Preliminary Blood NO GROWTH AFTER 3 DAYS 08/15/18 10:20 Blood Culture - Preliminary Blood NO GROWTH AFTER 3 DAYS 08/15/18 11:20 Urine Culture - Final Urine,Ray Yeast Species 08/15/18 11:20 Gram Stain - Final Trachasp Sputum Culture - Final NORMAL ORAL DOLORES Lab Studies 08/18/18 08/18/18 08/18/18 Range/Units 16:37 11:29 04:30 WBC (4.8-10.8) K/uL RBC (3.80-5.20) Mil/uL Hgb (12.0-16.0) g/dL Hct (34.0-47.0) % MCV (81.0-99.0) fl MCH (27.0-31.0) pg MCHC (33.0-37.0) g/dL RDW (11.5-14.5) % Plt Count (130-400) K/uL pCO2 (35-45) mm/Hg pO2 (80-100) mm/Hg HCO3 (21-28) mmol/L ABG pH (7.35-7.45) ABG Total CO2 (22-28) mmol/L ABG O2 Saturation (95-98) % ABG O2 Content (15-23) ML/dL ABG Base Excess (-2.0-3.0) mmol/L ABG Hemoglobin (11.7-17.4) g/dL ABG Carboxyhemoglobin (0.5-1.5) % POC ABG HHb (Measured) (0.0-5.0) % ABG Methemoglobin (0.0-3.0) % ABG O2 Capacity (16-24) mL/dL Bridger Test A-a O2 Difference mm/Hg Hgb O2 Saturation (95.0-98.0) % Vent Mode Mechanical Rate FiO2 % Tidal Volume PEEP Sodium 146 (132-148) mmol/l Potassium 3.6 (3.6-5.0) MMOL/L Chloride 108 H (98-107) mmol/L Carbon Dioxide 29 (22-30) mmol/L Anion Gap 13 (10-20) BUN 23 H (7-17) mg/dl Creatinine 0.6 L (0.7-1.2) mg/dl Est GFR ( Amer) > 60 Est GFR (Non-Af Amer) > 60 POC Glucose (mg/dL) 233 H 184 H (65-110) mg/dL Random Glucose 204 H (65-105) mg/dL Calcium 9.9 (8.4-10.2) mg/dL Total Bilirubin 0.5 (0.2-1.3) mg/dl AST 20 (14-36) U/L ALT 22 (9-52) U/L Alkaline Phosphatase 85 (38-126) U/L Total Creatine Kinase 119 (30-135) U/L Total Protein 7.9 (6.3-8.2) G/DL Albumin 3.9 (3.5-5.0) g/dL Globulin 4.0 H (2.2-3.9) gm/dL Albumin/Globulin Ratio 1.0 (1.0-2.1) CSF Volume (0-1) mL CSF Appearance (CLEAR) CSF WBC (0.0-5.0) /mm3 CSF RBC (0.0-0.0) /mm3 CSF Total Cell Counted CSF Neutrophils CSF Monos/Macrophages HSV Source Description H.influenzae Type B Ag (NEGATIVE) N.meningitidis ACY/W135 (NEGATIVE) N.meningi B/E.coli K1 Ag (NEGATIVE) Group B Strep Antigen (NEGATIVE) S. pneumoniae Antigen (NEGATIVE) 08/18/18 08/18/18 08/17/18 Range/Units 04:30 04:17 22:01 WBC 6.8 (4.8-10.8) K/uL RBC 4.05 (3.80-5.20) Mil/uL Hgb 10.5 L (12.0-16.0) g/dL Hct 32.7 L (34.0-47.0) % MCV 80.8 L (81.0-99.0) fl MCH 25.9 L (27.0-31.0) pg MCHC 32.1 L (33.0-37.0) g/dL RDW 15.5 H (11.5-14.5) % Plt Count 345 (130-400) K/uL pCO2 34 L (35-45) mm/Hg pO2 91 (80-100) mm/Hg HCO3 31.0 H (21-28) mmol/L ABG pH 7.56 H (7.35-7.45) ABG Total CO2 31.4 H (22-28) mmol/L ABG O2 Saturation 98.5 H (95-98) % ABG O2 Content 13.5 L (15-23) ML/dL ABG Base Excess 7.8 H (-2.0-3.0) mmol/L ABG Hemoglobin 9.9 L (11.7-17.4) g/dL ABG Carboxyhemoglobin 1.4 (0.5-1.5) % POC ABG HHb (Measured) 1.5 (0.0-5.0) % ABG Methemoglobin 0.9 (0.0-3.0) % ABG O2 Capacity 13.7 L (16-24) mL/dL Bridger Test Yes A-a O2 Difference 152.0 mm/Hg Hgb O2 Saturation 96.2 (95.0-98.0) % Vent Mode A/c Mechanical Rate 14 FiO2 40.0 % Tidal Volume 450 PEEP 5 Sodium (132-148) mmol/l Potassium (3.6-5.0) MMOL/L Chloride (98-107) mmol/L Carbon Dioxide (22-30) mmol/L Anion Gap (10-20) BUN (7-17) mg/dl Creatinine (0.7-1.2) mg/dl Est GFR ( Amer) Est GFR (Non-Af Amer) POC Glucose (mg/dL) 232 H (65-110) mg/dL Random Glucose (65-105) mg/dL Calcium (8.4-10.2) mg/dL Total Bilirubin (0.2-1.3) mg/dl AST (14-36) U/L ALT (9-52) U/L Alkaline Phosphatase (38-126) U/L Total Creatine Kinase (30-135) U/L Total Protein (6.3-8.2) G/DL Albumin (3.5-5.0) g/dL Globulin (2.2-3.9) gm/dL Albumin/Globulin Ratio (1.0-2.1) CSF Volume (0-1) mL CSF Appearance (CLEAR) CSF WBC (0.0-5.0) /mm3 CSF RBC (0.0-0.0) /mm3 CSF Total Cell Counted CSF Neutrophils CSF Monos/Macrophages HSV Source Description H.influenzae Type B Ag (NEGATIVE) N.meningitidis ACY/W135 (NEGATIVE) N.meningi B/E.coli K1 Ag (NEGATIVE) Group B Strep Antigen (NEGATIVE) S. pneumoniae Antigen (NEGATIVE) 08/17/18 08/17/18 08/17/18 Range/Units 16:42 15:40 15:40 WBC (4.8-10.8) K/uL RBC (3.80-5.20) Mil/uL Hgb (12.0-16.0) g/dL Hct (34.0-47.0) % MCV (81.0-99.0) fl MCH (27.0-31.0) pg MCHC (33.0-37.0) g/dL RDW (11.5-14.5) % Plt Count (130-400) K/uL pCO2 (35-45) mm/Hg pO2 (80-100) mm/Hg HCO3 (21-28) mmol/L ABG pH (7.35-7.45) ABG Total CO2 (22-28) mmol/L ABG O2 Saturation (95-98) % ABG O2 Content (15-23) ML/dL ABG Base Excess (-2.0-3.0) mmol/L ABG Hemoglobin (11.7-17.4) g/dL ABG Carboxyhemoglobin (0.5-1.5) % POC ABG HHb (Measured) (0.0-5.0) % ABG Methemoglobin (0.0-3.0) % ABG O2 Capacity (16-24) mL/dL Bridger Test A-a O2 Difference mm/Hg Hgb O2 Saturation (95.0-98.0) % Vent Mode Mechanical Rate FiO2 % Tidal Volume PEEP Sodium (132-148) mmol/l Potassium (3.6-5.0) MMOL/L Chloride (98-107) mmol/L Carbon Dioxide (22-30) mmol/L Anion Gap (10-20) BUN (7-17) mg/dl Creatinine (0.7-1.2) mg/dl Est GFR ( Amer) Est GFR (Non-Af Amer) POC Glucose (mg/dL) 236 H (65-110) mg/dL Random Glucose (65-105) mg/dL Calcium (8.4-10.2) mg/dL Total Bilirubin (0.2-1.3) mg/dl AST (14-36) U/L ALT (9-52) U/L Alkaline Phosphatase (38-126) U/L Total Creatine Kinase (30-135) U/L Total Protein (6.3-8.2) G/DL Albumin (3.5-5.0) g/dL Globulin (2.2-3.9) gm/dL Albumin/Globulin Ratio (1.0-2.1) CSF Volume 1 (0-1) mL CSF Appearance Clear/colorless (CLEAR) CSF WBC 1.0 (0.0-5.0) /mm3 CSF RBC 3.0 H (0.0-0.0) /mm3 CSF Total Cell Counted TEST NOT PERFORMED CSF Neutrophils Business Mail Entry Clerk CSF Monos/Macrophages TEST NOT PERFORMED HSV Source Description Fluid H.influenzae Type B Ag (NEGATIVE) N.meningitidis ACY/W135 (NEGATIVE) N.meningi B/E.coli K1 Ag (NEGATIVE) Group B Strep Antigen (NEGATIVE) S. pneumoniae Antigen (NEGATIVE) 08/17/18 Range/Units 15:40 WBC (4.8-10.8) K/uL RBC (3.80-5.20) Mil/uL Hgb (12.0-16.0) g/dL Hct (34.0-47.0) % MCV (81.0-99.0) fl MCH (27.0-31.0) pg MCHC (33.0-37.0) g/dL RDW (11.5-14.5) % Plt Count (130-400) K/uL pCO2 (35-45) mm/Hg pO2 (80-100) mm/Hg HCO3 (21-28) mmol/L ABG pH (7.35-7.45) ABG Total CO2 (22-28) mmol/L ABG O2 Saturation (95-98) % ABG O2 Content (15-23) ML/dL ABG Base Excess (-2.0-3.0) mmol/L ABG Hemoglobin (11.7-17.4) g/dL ABG Carboxyhemoglobin (0.5-1.5) % POC ABG HHb (Measured) (0.0-5.0) % ABG Methemoglobin (0.0-3.0) % ABG O2 Capacity (16-24) mL/dL Bridger Test A-a O2 Difference mm/Hg Hgb O2 Saturation (95.0-98.0) % Vent Mode Mechanical Rate FiO2 % Tidal Volume PEEP Sodium (132-148) mmol/l Potassium (3.6-5.0) MMOL/L Chloride (98-107) mmol/L Carbon Dioxide (22-30) mmol/L Anion Gap (10-20) BUN (7-17) mg/dl Creatinine (0.7-1.2) mg/dl Est GFR ( Amer) Est GFR (Non-Af Amer) POC Glucose (mg/dL) (65-110) mg/dL Random Glucose (65-105) mg/dL Calcium (8.4-10.2) mg/dL Total Bilirubin (0.2-1.3) mg/dl AST (14-36) U/L ALT (9-52) U/L Alkaline Phosphatase (38-126) U/L Total Creatine Kinase (30-135) U/L Total Protein (6.3-8.2) G/DL Albumin (3.5-5.0) g/dL Globulin (2.2-3.9) gm/dL Albumin/Globulin Ratio (1.0-2.1) CSF Volume (0-1) mL CSF Appearance (CLEAR) CSF WBC (0.0-5.0) /mm3 CSF RBC (0.0-0.0) /mm3 CSF Total Cell Counted CSF Neutrophils CSF Monos/Macrophages HSV Source Description H.influenzae Type B Ag Negative (NEGATIVE) N.meningitidis ACY/W135 Negative (NEGATIVE) N.meningi B/E.coli K1 Ag Negative (NEGATIVE) Group B Strep Antigen Negative (NEGATIVE) S. pneumoniae Antigen Negative (NEGATIVE) Laboratory Results - last 24 hr 08/17/18 08/17/18 08/17/18 15:40 15:40 15:40 WBC RBC Hgb Hct MCV MCH MCHC RDW Plt Count pCO2 pO2 HCO3 ABG pH ABG Total CO2 ABG O2 Saturation ABG O2 Content ABG Base Excess ABG Hemoglobin ABG Carboxyhemoglobin POC ABG HHb (Measured) ABG Methemoglobin ABG O2 Capacity Bridger Test A-a O2 Difference Hgb O2 Saturation Vent Mode Mechanical Rate FiO2 Tidal Volume PEEP Sodium Potassium Chloride Carbon Dioxide Anion Gap BUN Creatinine Est GFR ( Amer) Est GFR (Non-Af Amer) POC Glucose (mg/dL) Random Glucose Calcium Total Bilirubin AST ALT Alkaline Phosphatase Total Creatine Kinase Total Protein Albumin Globulin Albumin/Globulin Ratio CSF Volume 1 CSF Appearance Clear/colorless CSF WBC 1.0 CSF RBC 3.0 H CSF Total Cell Counted TEST NOT PERFORMED CSF Neutrophils [employer] CSF Monos/Macrophages TEST NOT PERFORMED HSV Source Description Fluid H.influenzae Type B Ag Negative N.meningitidis ACY/W135 Negative N.meningi B/E.coli K1 Ag Negative Group B Strep Antigen Negative S. pneumoniae Antigen Negative 08/17/18 08/17/18 08/18/18 16:42 22:01 04:17 WBC RBC Hgb Hct MCV MCH MCHC RDW Plt Count pCO2 34 L pO2 91 HCO3 31.0 H ABG pH 7.56 H ABG Total CO2 31.4 H ABG O2 Saturation 98.5 H ABG O2 Content 13.5 L ABG Base Excess 7.8 H ABG Hemoglobin 9.9 L ABG Carboxyhemoglobin 1.4 POC ABG HHb (Measured) 1.5 ABG Methemoglobin 0.9 ABG O2 Capacity 13.7 L Bridger Test Yes A-a O2 Difference 152.0 Hgb O2 Saturation 96.2 Vent Mode A/c Mechanical Rate 14 FiO2 40.0 Tidal Volume 450 PEEP 5 Sodium Potassium Chloride Carbon Dioxide Anion Gap BUN Creatinine Est GFR ( Amer) Est GFR (Non-Af Amer) POC Glucose (mg/dL) 236 H 232 H Random Glucose Calcium Total Bilirubin AST ALT Alkaline Phosphatase Total Creatine Kinase Total Protein Albumin Globulin Albumin/Globulin Ratio CSF Volume CSF Appearance CSF WBC CSF RBC CSF Total Cell Counted CSF Neutrophils CSF Monos/Macrophages HSV Source Description H.influenzae Type B Ag N.meningitidis ACY/W135 N.meningi B/E.coli K1 Ag Group B Strep Antigen S. pneumoniae Antigen 08/18/18 08/18/18 08/18/18 04:30 04:30 11:29 WBC 6.8 RBC 4.05 Hgb 10.5 L Hct 32.7 L MCV 80.8 L MCH 25.9 L MCHC 32.1 L RDW 15.5 H Plt Count 345 pCO2 pO2 HCO3 ABG pH ABG Total CO2 ABG O2 Saturation ABG O2 Content ABG Base Excess ABG Hemoglobin ABG Carboxyhemoglobin POC ABG HHb (Measured) ABG Methemoglobin ABG O2 Capacity Bridger Test A-a O2 Difference Hgb O2 Saturation Vent Mode Mechanical Rate FiO2 Tidal Volume PEEP Sodium 146 Potassium 3.6 Chloride 108 H Carbon Dioxide 29 Anion Gap 13 BUN 23 H Creatinine 0.6 L Est GFR ( Amer) > 60 Est GFR (Non-Af Amer) > 60 POC Glucose (mg/dL) 184 H Random Glucose 204 H Calcium 9.9 Total Bilirubin 0.5 AST 20 ALT 22 Alkaline Phosphatase 85 Total Creatine Kinase 119 Total Protein 7.9 Albumin 3.9 Globulin 4.0 H Albumin/Globulin Ratio 1.0 CSF Volume CSF Appearance CSF WBC CSF RBC CSF Total Cell Counted CSF Neutrophils CSF Monos/Macrophages HSV Source Description H.influenzae Type B Ag N.meningitidis ACY/W135 N.meningi B/E.coli K1 Ag Group B Strep Antigen S. pneumoniae Antigen 08/18/18 16:37 WBC RBC Hgb Hct MCV MCH MCHC RDW Plt Count pCO2 pO2 HCO3 ABG pH ABG Total CO2 ABG O2 Saturation ABG O2 Content ABG Base Excess ABG Hemoglobin ABG Carboxyhemoglobin POC ABG HHb (Measured) ABG Methemoglobin ABG O2 Capacity Bridger Test A-a O2 Difference Hgb O2 Saturation Vent Mode Mechanical Rate FiO2 Tidal Volume PEEP Sodium Potassium Chloride Carbon Dioxide Anion Gap BUN Creatinine Est GFR ( Amer) Est GFR (Non-Af Amer) POC Glucose (mg/dL) 233 H Random Glucose Calcium Total Bilirubin AST ALT Alkaline Phosphatase Total Creatine Kinase Total Protein Albumin Globulin Albumin/Globulin Ratio CSF Volume CSF Appearance CSF WBC CSF RBC CSF Total Cell Counted CSF Neutrophils CSF Monos/Macrophages HSV Source Description H.influenzae Type B Ag N.meningitidis ACY/W135 N.meningi B/E.coli K1 Ag Group B Strep Antigen S. pneumoniae Antigen Critical Care Progress Note - Nutrition Nutrition: Nutrition Category Date Time Status NPO Diet [DIET] Diets 08/04/18 Breakfast Active
[2018-08-18] MEDS ORDERED: Potassium Chloride 20 mEq/15 ml LIQ UD PO ONE (08:00)
[2018-08-18] MEDS: cefTRIAXone 2 GM in Sodium Chloride 0.9% 100 ML IVPB SCH (08:44)
[2018-08-18] MEDS: RISPERIDONE 0.25 MG ODT PO SCH ×2 (08:44→17:41)
--- NOTE | 2018-08-18 08:47 | RAD ---
Date of service: 08/18/2018 HISTORY: intubated COMPARISON: 08/17/2018 FINDINGS: Endotracheal tube terminates 3.5 cm proximal to the rojas. The nasogastric tube terminates in the stomach. LUNGS: The lungs are well inflated and clear. PLEURA: No pleural effusions or pneumothorax. CARDIOVASCULAR: The heart is normal in size. No aortic atherosclerotic calcification present. OSSEOUS STRUCTURES: Within normal limits for the patient's age. VISUALIZED UPPER ABDOMEN: Normal. OTHER FINDINGS: None. IMPRESSION: No acute findings. Stable position of support tubes.
--- NOTE | 2018-08-18 10:26 | CP.PCM.PN ---
<Evens Eaton - Last Filed: 08/18/18 12:05> Subjective - Date & Time of Evaluation Date of Evaluation: 08/18/18 Time of Evaluation: 10:26 - Subjective Subjective: pt seen and evaluated at bedside. NAD. Intubated on vent, 14/450/5/40%. Awakens, makes movements, but they are nonpurposeful and does not follow commands. Low gr ortega fevers remain overnight but are improving. BP remains uncontrolled. No episodes of diarrhea/vomiting. Tolerating tube feeds w/o issue. Pt tolerated LP well, labs reviewed. No other events. Objective - Vital Signs/Intake and Output Vital Signs (last 24 hours): Temp Pulse Resp BP Pulse Ox 99.8 F H 66 14 172/88 H 100 08/18/18 08:00 08/18/18 08:43 08/18/18 08:00 08/18/18 08:43 08/18/18 08:00 Intake and Output: 08/18/18 08/18/18 06:59 18:59 Intake Total 1808 130 Output Total 1350 Balance 458 130 - Medications Medications: Current Medications Acetaminophen (Tylenol 325mg Tab) 650 mg PO Q6 PRN PRN Reason: Fever >100.4 F Last Admin: 08/05/18 05:35 Dose: 650 mg Acetaminophen (Tylenol 650mg/20.3ml Solution Ud) 650 mg PO Q6 PRN PRN Reason: Temperature Last Admin: 08/17/18 00:46 Dose: 650 mg Albuterol/Ipratropium (Duoneb 3 Mg/0.5 Mg (3 Ml) Ud) 3 ml INH RQ6 [facility] Last Admin: 08/18/18 07:51 Dose: 3 ml Amlodipine Besylate (Norvasc) 10 mg PO DAILY [facility] Last Admin: 08/18/18 08:43 Dose: 10 mg Atorvastatin Calcium (Lipitor) 10 mg PO HS [facility] Last Admin: 08/17/18 21:53 Dose: 10 mg Carvedilol (Coreg) 25 mg PO Q12 [facility] Last Admin: 08/17/18 21:53 Dose: 25 mg Dextrose (Dextrose 50% Inj) 0 ml IV STAT PRN; Protocol PRN Reason: Hypoglycemia Protocol Dextrose (Glutose 15) 0 gm PO ONCE PRN; Protocol PRN Reason: Hypoglycemia Protocol Divalproex Sodium (Depakote Er(Once Daily)) 1,250 mg PO HS [facility] Last Admin: 08/16/18 21:43 Dose: 1,250 mg Enalaprilat (Vasotec) 2.5 mg IVP Q6H [facility] Last Admin: 08/17/18 22:03 Dose: 2.5 mg Enoxaparin Sodium (Lovenox) 40 mg SC DAILY [facility]; Protocol Last Admin: 08/15/18 08:23 Dose: 40 mg Escitalopram Oxalate (Lexapro) 10 mg PO HS [facility] Last Admin: 08/17/18 21:53 Dose: 10 mg Glucagon (Glucagen Diagnostic Kit) 0 mg IM STAT PRN; Protocol PRN Reason: Hypoglycemia Protocol Haloperidol Lactate (Haldol) 5 mg IVP Q8 PRN PRN Reason: Agitation Last Admin: 08/13/18 09:45 Dose: 5 mg Hydralazine HCl (Apresoline) 20 mg IV Q4H PRN PRN Reason: Systolic Blood Pressure Hydralazine HCl (Apresoline) 50 mg PO Q6 [facility] Levetiracetam 1,000 mg/ Sodium (Chloride) 110 mls @ 110 mls/hr IVPB Q12@0300,1500 [facility] Last Admin: 08/18/18 02:25 Dose: 110 mls/hr Ceftriaxone Sodium 2 gm/ (Sodium Chloride) 100 mls @ 100 mls/hr IVPB Q12 [facility]; Protocol Last Admin: 08/18/18 08:44 Dose: 100 mls/hr Fluconazole (Diflucan Iv 100 Mg/50 Ml Ns) 50 mls @ 50 mls/hr IVPB DAILY [facility]; Protocol Last Admin: 08/17/18 16:11 Dose: 50 mls/hr Ibuprofen (Motrin Tab) 600 mg PO Q6 PRN PRN Reason: Fever >100.4 F Last Admin: 08/16/18 02:47 Dose: 600 mg Insulin Detemir (Levemir) 35 units SC [facility] Last Admin: 08/17/18 21:55 Dose: 35 units Insulin Human Lispro (Humalog) 0 units SC Q6 [facility]; Protocol Last Admin: 08/17/18 23:00 Dose: Not Given Lactulose (Enulose) 20 gm PO Q12 PRN PRN Reason: Constipation Last Admin: 08/16/18 21:51 Dose: 20 gm Levothyroxine Sodium (Synthroid) 50 mcg PO DAILY@0630 [facility] Last Admin: 08/18/18 06:07 Dose: 50 mcg Losartan Potassium (Cozaar) 100 mg PO DAILY [facility] Last Admin: 08/17/18 12:01 Dose: Not Given Multivitamins/Minerals (Therapeutic-M Tab) 1 tab PO DAILY [facility] Last Admin: 08/11/18 09:03 Dose: Not Given Pantoprazole Sodium (Protonix Inj) 40 mg IVP DAILY [facility] Last Admin: 08/18/18 08:42 Dose: 40 mg Risperidone (Risperidone Odt 0.25mg) 0.25 mg PO BID [facility] Last Admin: 08/18/18 08:44 Dose: 0.25 mg Sitagliptin Phosphate (Januvia) 100 mg PO HS [facility] Last Admin: 08/17/18 21:54 Dose: 100 mg - Labs Labs: 08/18/18 04:30 08/18/18 04:30 PT 12.2 Seconds (9.8-13.1) 08/04/18 00:30 INR 1.1 08/04/18 00:30 APTT 31.5 Seconds (25.6-37.1) 08/02/18 22:20 - Constitutional Appears: Non-toxic, No Acute Distress - Head Exam Head Exam: ATRAUMATIC - Eye Exam Eye Exam: EOMI - ENT Exam ENT Exam: Mucous Membranes Moist - Respiratory Exam Respiratory Exam: Clear to Ausculation Bilateral, NORMAL BREATHING PATTERN. absent: Rales, Rhonchi, Wheezes - Cardiovascular Exam Cardiovascular Exam: REGULAR RHYTHM, RRR, +S1, +S2. absent: Tachycardia, JVD, Murmur - GI/Abdominal Exam GI & Abdominal Exam: Soft, Normal Bowel Sounds. absent: Firm, Rigid - Neurological Exam Neurological Exam: Altered Assessment and Plan - Assessment and Plan (Free Text) Assessment: 62 yo female from a correction, with hx of DM II, schizophrenia and HTN; initially admitted for sepsis and pneumonia. Initial labs were significant for leukocytosis with bandemia; CXR showed atelectasis vs infiltrate and pt was started on vancomycin, zosyn and zithromax IV. During the admission, the pt was found to be bradycardic and became unresponsive. A Code Blue was called for suspected Pulseless Electrical Activity; compressions done ,was achieved after 3 rounds of epinephrine. She was then transferred to ICU. When weaned off sedation, mental status changes appreciated per family when compared to her baseline. Neurology was consulted. MRI : negative for acute CVA. 1. s/p CardioRespiratory Arrest -s/p Code Blue (received 3 doses of epinephrine) -[facility] 14/450/5/40% -EKG wnl and troponin neg x2 -remains intubated -no purposeful movements, does not react to pain/nor follow commands. 2. Localization-related (focal) (partial) symptomatic epilepsy -as per neuro due to pts infection and antipsychotic lowered seizure threshold; appear to have resolved now -cont Keppra 1000 mg Q12 -Clozapine discontinued 3. AMS due to Encephalopathy - unclear etiology empirically treated with IV Acyclovir for poss Encephalitis Cutures negative MRI of Brain - no signs of Stroke nor Encephalitis tx underlying infection unclear if AMS due to Psych dis Lumbar Puncture: unremarkable CPK: wnl 4. 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 Persistent Fever -infectious process vs NEMS vs central dysfunction -on Rocephin 2gm Q12H -CT of abd with contrast unremarkable -LP: elevated protein, only 1.0 WBC -urine: + yeast, started on diflucan 6. Anasarca -improving -IV lasix given -Strict I&Os -Renal function stable 7.Hypothyrodism -Chronic, uncontrolled -Levothyroxine 50mcg daily -TSH low- Levothyroxine decreased 8. DM tpe II , with Insulin use -Chronic -oral meds held -Levemir 30 units QHS -Insulin coverage scale and hypoglycemia protocol -Hypoglycemia protocol 9. HTN uncontrolled -cont Lasix, Amlodipine, Coreg and Losartan -Hydralazine 50mg QID started -c/w monitoring BPs 10. Schizophrenia -Chronic -Home meds held for now -cont Depakote -Psych consulted- rec Lexapro and Risperdal 11. Hypernatremia -resolved 12. Hypokalemia -3.6 -resolved -monitor BMP 13) DVT prophylaxis -Lovenox 40mg SC QD -SCDs 14) Code Status -full code <Baylee Garcia - Last Filed: 08/18/18 17:13> Objective - Vital Signs/Intake and Output Vital Signs (last 24 hours): Temp Pulse Resp BP Pulse Ox 101 F H 67 20 164/75 H 100 08/18/18 12:00 08/18/18 14:00 08/18/18 14:00 08/18/18 14:00 08/18/18 14:00 Intake and Output: 08/18/18 08/18/18 06:59 18:59 Intake Total 1808 630 Output Total 1350 Balance 458 630 - Medications Medications: Current Medications Acetaminophen (Tylenol 325mg Tab) 650 mg PO Q6 PRN PRN Reason: Fever >100.4 F Last Admin: 08/05/18 05:35 Dose: 650 mg Acetaminophen (Tylenol 650mg/20.3ml Solution Ud) 650 mg PO Q6 PRN PRN Reason: Temperature Last Admin: 08/18/18 11:22 Dose: 650 mg Albuterol/Ipratropium (Duoneb 3 Mg/0.5 Mg (3 Ml) Ud) 3 ml INH RQ6 [facility] Last Admin: 08/18/18 13:14 Dose: 3 ml Amlodipine Besylate (Norvasc) 10 mg PO DAILY [facility] Last Admin: 08/18/18 08:43 Dose: 10 mg Atorvastatin Calcium (Lipitor) 10 mg PO HS [facility] Last Admin: 08/17/18 21:53 Dose: 10 mg Carvedilol (Coreg) 25 mg PO Q12 [facility] Last Admin: 08/18/18 11:35 Dose: 25 mg Dextrose (Dextrose 50% Inj) 0 ml IV STAT PRN; Protocol PRN Reason: Hypoglycemia Protocol Dextrose (Glutose 15) 0 gm PO ONCE PRN; Protocol PRN Reason: Hypoglycemia Protocol Divalproex Sodium (Depakote Er(Once Daily)) 1,250 mg PO HS [facility] Last Admin: 08/16/18 21:43 Dose: 1,250 mg Enalaprilat (Vasotec) 2.5 mg IVP Q6H [facility] Last Admin: 08/18/18 11:23 Dose: 2.5 mg Enoxaparin Sodium (Lovenox) 40 mg SC DAILY [facility]; Protocol Last Admin: 08/18/18 11:25 Dose: 40 mg Escitalopram Oxalate (Lexapro) 10 mg PO HS [facility] Last Admin: 08/17/18 21:53 Dose: 10 mg Glucagon (Glucagen Diagnostic Kit) 0 mg IM STAT PRN; Protocol PRN Reason: Hypoglycemia Protocol Haloperidol Lactate (Haldol) 5 mg IVP Q8 PRN PRN Reason: Agitation Last Admin: 08/13/18 09:45 Dose: 5 mg Hydralazine HCl (Apresoline) 20 mg IV Q4H PRN PRN Reason: Systolic Blood Pressure Hydralazine HCl (Apresoline) 50 mg PO Q6 [facility] Last Admin: 08/18/18 11:33 Dose: 50 mg Levetiracetam 1,000 mg/ Sodium (Chloride) 110 mls @ 110 mls/hr IVPB Q12@0300,1500 [facility] Last Admin: 08/18/18 15:03 Dose: 110 mls/hr Ceftriaxone Sodium 2 gm/ (Sodium Chloride) 100 mls @ 100 mls/hr IVPB Q12 [facility]; Protocol Last Admin: 08/18/18 08:44 Dose: 100 mls/hr Fluconazole (Diflucan Iv 100 Mg/50 Ml Ns) 50 mls @ 50 mls/hr IVPB DAILY [facility]; Protocol Last Admin: 08/18/18 12:06 Dose: 50 mls/hr Dexmedetomidine HCl 400 mcg/ (Sodium Chloride) 100 mls @ 11.11 mls/hr IV .Q9H1M ONE; Protocol Stop: 08/18/18 23:58 Ibuprofen (Motrin Tab) 600 mg PO Q6 PRN PRN Reason: Fever >100.4 F Last Admin: 08/16/18 02:47 Dose: 600 mg Insulin Detemir (Levemir) 35 units SC [facility] Last Admin: 08/17/18 21:55 Dose: 35 units Insulin Human Lispro (Humalog) 0 units SC Q6 [facility]; Protocol Last Admin: 08/18/18 11:31 Dose: 2 units Lactulose (Enulose) 20 gm PO Q12 PRN PRN Reason: Constipation Last Admin: 08/16/18 21:51 Dose: 20 gm Levothyroxine Sodium (Synthroid) 50 mcg PO DAILY@0630 [facility] Last Admin: 08/18/18 06:07 Dose: 50 mcg Losartan Potassium (Cozaar) 100 mg PO DAILY [facility] Last Admin: 08/18/18 11:34 Dose: 100 mg Multivitamins/Minerals (Therapeutic-M Tab) 1 tab PO DAILY [facility] Last Admin: 08/11/18 09:03 Dose: Not Given Pantoprazole Sodium (Protonix Inj) 40 mg IVP DAILY [facility] Last Admin: 08/18/18 08:42 Dose: 40 mg Risperidone (Risperidone Odt 0.25mg) 0.25 mg PO BID [facility] Last Admin: 08/18/18 08:44 Dose: 0.25 mg Sitagliptin Phosphate (Januvia) 100 mg PO HS [facility] Last Admin: 08/17/18 21:54 Dose: 100 mg - Labs Labs: 08/18/18 04:30 08/18/18 04:30 PT 12.2 Seconds (9.8-13.1) 08/04/18 00:30 INR 1.1 08/04/18 00:30 APTT 31.5 Seconds (25.6-37.1) 08/02/18 22:20 Attending/Attestation - Attestation I have personally seen and examined this patient.: Yes I have fully participated in the care of the patient.: Yes I have reviewed all pertinent clinical information, including history, physical exam and plan: Yes Notes (Text): AMS: Discussed with DR Keller - mental status change likely Toxic Metabolic Encephalopathy plus due to Psych problem Persistent Fever: LP : negative so far CT of abd and pevis : negative Blood c/s : neg Trach asp : neg AFB sputum x 1 : negative Ct of the Chest mentioned some hilar adenopathy - will check LDH and rpt CT of the chest with contrast , will also check LDH CPK: normal
[2018-08-18] MEDS: Acetaminophen 650mg/20.3ml solution UD PO PRN (11:22)
[2018-08-18] MEDS: Enalaprilat 2.5 MG/2 ML IVP SCH ×4 (11:23→20:19)
[2018-08-18] MEDS: Enoxaparin 40 mg Syringe SC SCH (11:25)
[2018-08-18] MEDS: Insulin Lispro (humaLOG) 100 Units/ml Inj SC SCH ×3 (11:31→21:20)
[2018-08-18] MEDS: Fluconazole IV 100mg/50 ml NS 50 ML IVPB SCH (12:06)
[2018-08-18] MEDS ORDERED: Dexmedetomidine Hydrochloride 400 MCG in Sodium Chloride 0.9% 96 ML IV ONE ×2 (14:58→22:17)
--- NOTE | 2018-08-18 19:12 | CP.PCM.PN ---
Subjective - Date & Time of Evaluation Date of Evaluation: 08/18/18 Time of Evaluation: 13:00 - Subjective Subjective: Mrs. Ahumada was seen and examined today at bedside in the ICU. She continues to be restless, and does not follow commands. She has been febrile and is still intubated. Objective - Vital Signs/Intake and Output Vital Signs (last 24 hours): Temp Pulse Resp BP Pulse Ox 98.7 F 65 17 163/83 H 100 08/18/18 16:00 08/18/18 18:00 08/18/18 18:00 08/18/18 18:00 08/18/18 18:00 Intake and Output: 08/18/18 08/19/18 18:59 06:59 Intake Total 1162 Output Total 900 Balance 262 - Medications Medications: Current Medications Acetaminophen (Tylenol 325mg Tab) 650 mg PO Q6 PRN PRN Reason: Fever >100.4 F Last Admin: 08/05/18 05:35 Dose: 650 mg Acetaminophen (Tylenol 650mg/20.3ml Solution Ud) 650 mg PO Q6 PRN PRN Reason: Temperature Last Admin: 08/18/18 11:22 Dose: 650 mg Albuterol/Ipratropium (Duoneb 3 Mg/0.5 Mg (3 Ml) Ud) 3 ml INH RQ6 [facility] Last Admin: 08/18/18 13:14 Dose: 3 ml Amlodipine Besylate (Norvasc) 10 mg PO DAILY [facility] Last Admin: 08/18/18 08:43 Dose: 10 mg Atorvastatin Calcium (Lipitor) 10 mg PO HS [facility] Last Admin: 08/17/18 21:53 Dose: 10 mg Carvedilol (Coreg) 25 mg PO Q12 [facility] Last Admin: 08/18/18 11:35 Dose: 25 mg Dextrose (Dextrose 50% Inj) 0 ml IV STAT PRN; Protocol PRN Reason: Hypoglycemia Protocol Dextrose (Glutose 15) 0 gm PO ONCE PRN; Protocol PRN Reason: Hypoglycemia Protocol Divalproex Sodium (Depakote Er(Once Daily)) 1,250 mg PO HS [facility] Last Admin: 08/16/18 21:43 Dose: 1,250 mg Enalaprilat (Vasotec) 2.5 mg IVP Q6H [facility] Last Admin: 08/18/18 17:36 Dose: 2.5 mg Enoxaparin Sodium (Lovenox) 40 mg SC DAILY [facility]; Protocol Last Admin: 08/18/18 11:25 Dose: 40 mg Escitalopram Oxalate (Lexapro) 10 mg PO HS [facility] Last Admin: 08/17/18 21:53 Dose: 10 mg Glucagon (Glucagen Diagnostic Kit) 0 mg IM STAT PRN; Protocol PRN Reason: Hypoglycemia Protocol Haloperidol Lactate (Haldol) 5 mg IVP Q8 PRN PRN Reason: Agitation Last Admin: 08/13/18 09:45 Dose: 5 mg Hydralazine HCl (Apresoline) 20 mg IV Q4H PRN PRN Reason: Systolic Blood Pressure Hydralazine HCl (Apresoline) 50 mg PO Q6 [facility] Last Admin: 08/18/18 17:48 Dose: 50 mg Fluconazole (Diflucan Iv 100 Mg/50 Ml Ns) 50 mls @ 50 mls/hr IVPB DAILY [facility]; Protocol Last Admin: 08/18/18 12:06 Dose: 50 mls/hr Dexmedetomidine HCl 400 mcg/ (Sodium Chloride) 100 mls @ 11.11 mls/hr IV .Q9H1M ONE; Protocol Stop: 08/18/18 23:58 Last Titration: 08/18/18 15:28 Dose: 0.01 mcg/kg/hr, 0.4 mls/hr Ibuprofen (Motrin Tab) 600 mg PO Q6 PRN PRN Reason: Fever >100.4 F Last Admin: 08/16/18 02:47 Dose: 600 mg Insulin Detemir (Levemir) 35 units SC HS [facility] Last Admin: 08/17/18 21:55 Dose: 35 units Insulin Human Lispro (Humalog) 0 units SC Q6 [facility]; Protocol Last Admin: 08/18/18 17:46 Dose: 4 units Lacosamide (Vimpat) 100 mg PO BID [facility] Lactulose (Enulose) 20 gm PO Q12 PRN PRN Reason: Constipation Last Admin: 08/16/18 21:51 Dose: 20 gm Levothyroxine Sodium (Synthroid) 50 mcg PO DAILY@0630 [facility] Last Admin: 08/18/18 06:07 Dose: 50 mcg Losartan Potassium (Cozaar) 100 mg PO DAILY [facility] Last Admin: 08/18/18 11:34 Dose: 100 mg Multivitamins/Minerals (Therapeutic-M Tab) 1 tab PO DAILY [facility] Last Admin: 08/11/18 09:03 Dose: Not Given Pantoprazole Sodium (Protonix Inj) 40 mg IVP DAILY [facility] Last Admin: 08/18/18 08:42 Dose: 40 mg Risperidone (Risperidone Odt 0.25mg) 0.25 mg PO BID [facility] Last Admin: 08/18/18 17:41 Dose: 0.25 mg Sitagliptin Phosphate (Januvia) 100 mg PO HS [facility] Last Admin: 08/17/18 21:54 Dose: 100 mg - Labs Labs: 08/18/18 04:30 08/18/18 04:30 PT 12.2 Seconds (9.8-13.1) 08/04/18 00:30 INR 1.1 08/04/18 00:30 APTT 31.5 Seconds (25.6-37.1) 08/02/18 22:20 - Neurological Exam Neurological Exam: Altered, Awake, CN II-XII Intact Neuro motor strength exam: Left Upper Extremity: 3, Right Upper Extremity: 3, Left Lower Extremity: 3, Right Lower Extremity: 3 Assessment and Plan (1) Localization-related (focal) (partial) symptomatic epilepsy and epileptic syndromes with complex partial seizures, intractable, with status epilepticus Status: Resolved (2) Toxic metabolic encephalopathy Assessment & Plan: Will switch her from Keppra to Vimpat since this can contribute to her agitated and restless state. Otherwise, continue treating underlying infectious and psychiatric etiology. Status: Acute
[2018-08-18] MEDS: Lacosamide 100 MG Tab PO SCH (19:52)
[2018-08-18] MEDS: Insulin Detemir 100 Units/ml Inj SC SCH (21:12)
[2018-08-18] MEDS: Divalproex 250 mg ER (ONCE DAILY formulation) PO SCH (23:16)
[2018-08-19] MEDS: Albuterol-Ipratrop 3 mg / 0.5 (3 ml) UD INH SCH ×4 (01:00→19:10)
[2018-08-19] MEDS: Enalaprilat 2.5 MG/2 ML IVP SCH ×4 (02:14→21:56)
[2018-08-19 05:32] LABS: ABG ALLEN TEST YES; ARTERIAL BLOOD GAS HCO3 31.3 mmol/L (21-28); ARTERIAL BLOOD GAS HEMOGLOBIN 9.7 g/dL (11.7-17.4); ARTERIAL BLOOD GAS O2 CAPACITY 13.4 mL/dL (16-24); ARTERIAL BLOOD GAS O2 CONTENT 13.2 ML/dL (15-23); ARTERIAL BLOOD GAS O2 SAT 98.4 % (95-98); ARTERIAL BLOOD GAS PCO2 40 mm/Hg (35-45); ARTERIAL BLOOD GAS PH 7.51 (7.35-7.45); ARTERIAL BLOOD GAS PO2 90 mm/Hg (80-100); ARTERIAL BLOOD GAS TCO2 33.1 mmol/L (22-28)
[2018-08-19 05:43] LABS: HEMOGLOBIN 9.6 g/dL (12.0-16.0); MEAN CELL VOLUME 81.5 fl (81.0-99.0); MEAN CORPUSCULAR HEMOGLOBIN 25.8 pg (27.0-31.0); MEAN CORPUSCULAR HGB CONC 31.7 g/dL (33.0-37.0); RBC 3.72 Mil/uL (3.80-5.20); WHITE BLOOD COUNT 6.5 K/uL (4.8-10.8)
[2018-08-19 05:57] LABS: ALBUMIN 3.8 g/dL (3.5-5.0); ALT/SGPT 22 U/L (9-52); AST/SGOT 24 U/L (14-36); BLOOD UREA NITROGEN 22 mg/dl (7-17); CALCIUM 9.6 mg/dL (8.4-10.2); GFR NON-AFRICAN AMERICAN > 60
[2018-08-19] MEDS: Levothyroxine 50 MCG TAB PO SCH (06:39)
--- NOTE | 2018-08-19 07:38 | CP.CCUPN ---
<Zi Naranjo - Last Filed: 08/19/18 14:52> CCU Subjective - Physician Review Subjective (Free Text): Pt seen and examined at bedside this am. Pt intubated on MV. pt more alert and responding with ocular and oral movements. Not currently coherent vocally. Daughter at bedside CCU Objective - Vital Signs / Intake & Output Vital Signs (Last 4 hours): Vital Signs Temp Pulse BP 08/19/18 07:23 101.3 F H 08/19/18 03:56 65 174/76 H Intake and Output (Last 8hrs): Intake & Output 08/18/18 08/19/18 08/19/18 22:59 06:59 14:59 Intake Total 1104 527 Output Total 900 Balance 204 527 Intake: IV 124 37 Tube Feeding 480 240 Free Water Flush 500 250 Output: Emesis 900 - Physical Exam Head: Positive for: Normocephalic Pupils: Positive for: Sluggish Extroacular Muscles: Positive for: EOMI Conjunctiva: Positive for: Normal Ears: Positive for: Normal Mouth: Positive for: Moist Mucous Membranes (ETT tube in place, yellow secretions, OG tube) Nose (External): Positive for: Other Neck: Positive for: Normal Range of Motion Respiratory/Chest: Positive for: Good Air Exchange, Rhonchi, Other (Mechanical ventilation). Negative for: Rales Cardiovascular: Positive for: Regular Rate and Rhythm, Normal S1, S2. Negative for: Murmurs Abdomen: Positive for: Distention, Normal Bowel Sounds Upper Extremity: Positive for: Edema (trace pitting in upper extremities bl), NORMAL PULSES, Capillary Refill < 2s Lower Extremity: Positive for: NORMAL PULSES, Capillary Refill < 2 s. Negative for: Edema Neurological: Positive for: Other (Eyes open spotnaneously, non verbal, withdraws from pain) Skin: Positive for: Warm, Dry, Rashes Psychiatric: Positive for: Alert (intermittent), Lethargic (improved). Negative for: Oriented x 3, Agitated - Medications Active Medications: Active Medications Generic Name Dose Route Start Last Admin Trade Name Freq PRN Reason Stop Dose Admin Acetaminophen 650 mg 08/03/18 03:33 08/05/18 05:35 Tylenol 325mg Tab PO 650 mg Q6 PRN Administration Fever >100.4 F Acetaminophen 650 mg 08/15/18 22:15 08/18/18 11:22 Tylenol 650mg/20.3ml Solution Ud PO 650 mg Q6 PRN Administration Temperature Albuterol/Ipratropium 3 ml 08/16/18 14:00 08/19/18 01:00 Duoneb 3 Mg/0.5 Mg (3 Ml) Ud INH 3 ml RQ6 LESLIE Administration Amlodipine Besylate 10 mg 08/03/18 09:00 08/18/18 08:43 Norvasc PO 10 mg DAILY LESLIE Administration Atorvastatin Calcium 10 mg 08/03/18 22:00 08/18/18 21:12 Lipitor PO 10 mg HS LESLIE Administration Carvedilol 25 mg 08/15/18 21:00 08/18/18 20:18 Coreg PO 25 mg Q12 LESLIE Administration Dextrose 0 ml 08/03/18 03:35 Dextrose 50% Inj IV STAT PRN Hypoglycemia Protocol Protocol Dextrose 0 gm 08/03/18 03:35 Glutose 15 PO ONCE PRN Hypoglycemia Protocol Protocol Divalproex Sodium 1,250 mg 08/03/18 22:00 08/18/18 23:16 Depakote Er(Once Daily) PO 1,250 mg HS LESLIE Administration Enalaprilat 2.5 mg 08/17/18 03:15 08/19/18 02:14 Vasotec IVP 2.5 mg Q6H LESLIE Administration Enoxaparin Sodium 40 mg 08/09/18 09:00 08/18/18 11:25 Lovenox SC 40 mg DAILY LESLIE Administration Protocol Escitalopram Oxalate 10 mg 08/03/18 22:00 08/18/18 21:12 Lexapro PO 10 mg HS LESLIE Administration Glucagon 0 mg 08/03/18 03:35 Glucagen Diagnostic Kit IM STAT PRN Hypoglycemia Protocol Protocol Haloperidol Lactate 5 mg 08/12/18 13:03 08/13/18 09:45 Haldol IVP 5 mg Q8 PRN Administration Agitation Hydralazine HCl 20 mg 08/16/18 14:00 Apresoline IV Q4H PRN Systolic Blood Pressure Hydralazine HCl 50 mg 08/18/18 10:00 08/19/18 03:56 Apresoline PO 50 mg Q6 LESLIE Administration Fluconazole 50 mls @ 50 mls/hr 08/17/18 14:00 08/18/18 12:06 Diflucan Iv 100 Mg/50 Ml Ns IVPB 50 mls/hr DAILY LESLIE Administration Protocol Dexmedetomidine HCl 400 mcg/ 100 mls @ 8.89 mls/hr 08/18/18 22:17 08/19/18 03:58 Sodium Chloride IV 08/19/18 09:31 0.4 mcg/kg/hr .[id number] ONE 8.89 mls/hr Administration Protocol 0.4 MCG/KG/HR Ibuprofen 600 mg 08/03/18 13:30 08/19/18 07:23 Motrin Tab PO 600 mg Q6 PRN Administration Fever >100.4 F Insulin Detemir 35 units 08/17/18 22:00 08/18/18 21:12 Levemir SC 35 units HS LESLIE Administration Insulin Human Lispro 0 units 08/14/18 12:00 08/18/18 21:20 Humalog SC Not Given Q6 LESLIE Protocol Lacosamide 100 mg 08/18/18 19:15 08/18/18 19:52 Vimpat PO 100 mg BID LESLIE Administration Lactulose 20 gm 08/08/18 17:16 08/16/18 21:51 Enulose PO 20 gm Q12 PRN Administration Constipation Levothyroxine Sodium 50 mcg 08/04/18 06:30 08/19/18 06:39 Synthroid PO 50 mcg DAILY@0630 LESLIE Administration Losartan Potassium 100 mg 08/10/18 09:00 08/18/18 11:34 Cozaar PO 100 mg DAILY LESLIE Administration Multivitamins/Minerals 1 tab 08/03/18 09:00 08/11/18 09:03 Therapeutic-M Tab PO Not Given DAILY LESLIE Pantoprazole Sodium 40 mg 08/11/18 09:45 08/18/18 08:42 Protonix Inj IVP 40 mg DAILY LESLIE Administration Risperidone 0.25 mg 08/15/18 17:00 08/18/18 17:41 Risperidone Odt 0.25mg PO 0.25 mg BID LESLIE Administration Sitagliptin Phosphate 100 mg 08/03/18 22:00 08/18/18 21:12 Januvia PO 100 mg HS LESLIE Administration - Patient Studies Lab Studies: Microbiology Studies 08/15/18 10:25 Blood Culture - Preliminary Blood NO GROWTH AFTER 3 DAYS 08/15/18 10:20 Blood Culture - Preliminary Blood NO GROWTH AFTER 3 DAYS Lab Studies 08/19/18 08/19/18 08/19/18 Range/Units 05:13 04:30 04:30 WBC 6.5 (4.8-10.8) K/uL RBC 3.72 L (3.80-5.20) Mil/uL Hgb 9.6 L (12.0-16.0) g/dL Hct 30.3 L (34.0-47.0) % MCV 81.5 (81.0-99.0) fl MCH 25.8 L (27.0-31.0) pg MCHC 31.7 L (33.0-37.0) g/dL RDW 16.0 H (11.5-14.5) % Plt Count 324 (130-400) K/uL pCO2 40 (35-45) mm/Hg pO2 90 (80-100) mm/Hg HCO3 31.3 H (21-28) mmol/L ABG pH 7.51 H (7.35-7.45) ABG Total CO2 33.1 H (22-28) mmol/L ABG O2 Saturation 98.4 H (95-98) % ABG O2 Content 13.2 L (15-23) ML/dL ABG Base Excess 8.2 H (-2.0-3.0) mmol/L ABG Hemoglobin 9.7 L (11.7-17.4) g/dL ABG Carboxyhemoglobin 1.1 (0.5-1.5) % POC ABG HHb (Measured) 1.6 (0.0-5.0) % ABG Methemoglobin 1.3 (0.0-3.0) % ABG O2 Capacity 13.4 L (16-24) mL/dL Bridger Test Yes A-a O2 Difference 145.0 mm/Hg Hgb O2 Saturation 95.9 (95.0-98.0) % Vent Mode A/c Mechanical Rate 450 FiO2 40.0 % Tidal Volume 14 PEEP 5 Sodium 146 (132-148) mmol/l Potassium 3.6 (3.6-5.0) MMOL/L Chloride 110 H (98-107) mmol/L Carbon Dioxide 27 (22-30) mmol/L Anion Gap 13 (10-20) BUN 22 H (7-17) mg/dl Creatinine 0.6 L (0.7-1.2) mg/dl Est GFR ( Amer) > 60 Est GFR (Non-Af Amer) > 60 POC Glucose (mg/dL) (65-110) mg/dL Random Glucose 275 H (65-105) mg/dL Calcium 9.6 (8.4-10.2) mg/dL Total Bilirubin 0.5 (0.2-1.3) mg/dl AST 24 (14-36) U/L ALT 22 (9-52) U/L Alkaline Phosphatase 80 (38-126) U/L Lactate Dehydrogenase (313-618) U/L Total Protein 7.4 (6.3-8.2) G/DL Albumin 3.8 (3.5-5.0) g/dL Globulin 3.6 (2.2-3.9) gm/dL Albumin/Globulin Ratio 1.0 (1.0-2.1) SHEILA Screen (Negative) 08/18/18 08/18/18 08/18/18 Range/Units 21:16 17:22 16:37 WBC (4.8-10.8) K/uL RBC (3.80-5.20) Mil/uL Hgb (12.0-16.0) g/dL Hct (34.0-47.0) % MCV (81.0-99.0) fl MCH (27.0-31.0) pg MCHC (33.0-37.0) g/dL RDW (11.5-14.5) % Plt Count (130-400) K/uL pCO2 (35-45) mm/Hg pO2 (80-100) mm/Hg HCO3 (21-28) mmol/L ABG pH (7.35-7.45) ABG Total CO2 (22-28) mmol/L ABG O2 Saturation (95-98) % ABG O2 Content (15-23) ML/dL ABG Base Excess (-2.0-3.0) mmol/L ABG Hemoglobin (11.7-17.4) g/dL ABG Carboxyhemoglobin (0.5-1.5) % POC ABG HHb (Measured) (0.0-5.0) % ABG Methemoglobin (0.0-3.0) % ABG O2 Capacity (16-24) mL/dL Bridger Test A-a O2 Difference mm/Hg Hgb O2 Saturation (95.0-98.0) % Vent Mode Mechanical Rate FiO2 % Tidal Volume PEEP Sodium (132-148) mmol/l Potassium (3.6-5.0) MMOL/L Chloride (98-107) mmol/L Carbon Dioxide (22-30) mmol/L Anion Gap (10-20) BUN (7-17) mg/dl Creatinine (0.7-1.2) mg/dl Est GFR ( Amer) Est GFR (Non-Af Amer) POC Glucose (mg/dL) 205 H 233 H (65-110) mg/dL Random Glucose (65-105) mg/dL Calcium (8.4-10.2) mg/dL Total Bilirubin (0.2-1.3) mg/dl AST (14-36) U/L ALT (9-52) U/L Alkaline Phosphatase (38-126) U/L Lactate Dehydrogenase 765 H (313-618) U/L Total Protein (6.3-8.2) G/DL Albumin (3.5-5.0) g/dL Globulin (2.2-3.9) gm/dL Albumin/Globulin Ratio (1.0-2.1) SHEILA Screen (Negative) 08/18/18 08/14/18 Range/Units 11:29 20:50 WBC (4.8-10.8) K/uL RBC (3.80-5.20) Mil/uL Hgb (12.0-16.0) g/dL Hct (34.0-47.0) % MCV (81.0-99.0) fl MCH (27.0-31.0) pg MCHC (33.0-37.0) g/dL RDW (11.5-14.5) % Plt Count (130-400) K/uL pCO2 (35-45) mm/Hg pO2 (80-100) mm/Hg HCO3 (21-28) mmol/L ABG pH (7.35-7.45) ABG Total CO2 (22-28) mmol/L ABG O2 Saturation (95-98) % ABG O2 Content (15-23) ML/dL ABG Base Excess (-2.0-3.0) mmol/L ABG Hemoglobin (11.7-17.4) g/dL ABG Carboxyhemoglobin (0.5-1.5) % POC ABG HHb (Measured) (0.0-5.0) % ABG Methemoglobin (0.0-3.0) % ABG O2 Capacity (16-24) mL/dL Bridger Test A-a O2 Difference mm/Hg Hgb O2 Saturation (95.0-98.0) % Vent Mode Mechanical Rate FiO2 % Tidal Volume PEEP Sodium (132-148) mmol/l Potassium (3.6-5.0) MMOL/L Chloride (98-107) mmol/L Carbon Dioxide (22-30) mmol/L Anion Gap (10-20) BUN (7-17) mg/dl Creatinine (0.7-1.2) mg/dl Est GFR ( Amer) Est GFR (Non-Af Amer) POC Glucose (mg/dL) 184 H (65-110) mg/dL Random Glucose (65-105) mg/dL Calcium (8.4-10.2) mg/dL Total Bilirubin (0.2-1.3) mg/dl AST (14-36) U/L ALT (9-52) U/L Alkaline Phosphatase (38-126) U/L Lactate Dehydrogenase (313-618) U/L Total Protein (6.3-8.2) G/DL Albumin (3.5-5.0) g/dL Globulin (2.2-3.9) gm/dL Albumin/Globulin Ratio (1.0-2.1) SHEILA Screen Negative (Negative) Laboratory Results - last 24 hr 08/14/18 08/18/18 08/18/18 20:50 11:29 16:37 WBC RBC Hgb Hct MCV MCH MCHC RDW Plt Count pCO2 pO2 HCO3 ABG pH ABG Total CO2 ABG O2 Saturation ABG O2 Content ABG Base Excess ABG Hemoglobin ABG Carboxyhemoglobin POC ABG HHb (Measured) ABG Methemoglobin ABG O2 Capacity Bridger Test A-a O2 Difference Hgb O2 Saturation Vent Mode Mechanical Rate FiO2 Tidal Volume PEEP Sodium Potassium Chloride Carbon Dioxide Anion Gap BUN Creatinine Est GFR ( Amer) Est GFR (Non-Af Amer) POC Glucose (mg/dL) 184 H 233 H Random Glucose Calcium Total Bilirubin AST ALT Alkaline Phosphatase Lactate Dehydrogenase Total Protein Albumin Globulin Albumin/Globulin Ratio SHEILA Screen Negative 08/18/18 08/18/1808/19/18 17:22 21:16 04:30 WBC 6.5 RBC 3.72 L Hgb 9.6 L Hct 30.3 L MCV 81.5 MCH 25.8 L MCHC 31.7 L RDW 16.0 H Plt Count 324 pCO2 pO2 HCO3 ABG pH ABG Total CO2 ABG O2 Saturation ABG O2 Content ABG Base Excess ABG Hemoglobin ABG Carboxyhemoglobin POC ABG HHb (Measured) ABG Methemoglobin ABG O2 Capacity Bridger Test A-a O2 Difference Hgb O2 Saturation Vent Mode Mechanical Rate FiO2 Tidal Volume PEEP Sodium Potassium Chloride Carbon Dioxide Anion Gap BUN Creatinine Est GFR ( Amer) Est GFR (Non-Af Amer) POC Glucose (mg/dL) 205 H Random Glucose Calcium Total Bilirubin AST ALT Alkaline Phosphatase Lactate Dehydrogenase 765 H Total Protein Albumin Globulin Albumin/Globulin Ratio SHEILA Screen 08/19/18 08/19/18 04:30 05:13 WBC RBC Hgb Hct MCV MCH MCHC RDW Plt Count pCO2 40 pO2 90 HCO3 31.3 H ABG pH 7.51 H ABG Total CO2 33.1 H ABG O2 Saturation 98.4 H ABG O2 Content 13.2 L ABG Base Excess 8.2 H ABG Hemoglobin 9.7 L ABG Carboxyhemoglobin 1.1 POC ABG HHb (Measured) 1.6 ABG Methemoglobin 1.3 ABG O2 Capacity 13.4 L Bridger Test Yes A-a O2 Difference 145.0 Hgb O2 Saturation 95.9 Vent Mode A/c Mechanical Rate 450 FiO2 40.0 Tidal Volume 14 PEEP 5 Sodium 146 Potassium 3.6 Chloride 110 H Carbon Dioxide 27 Anion Gap 13 BUN 22 H Creatinine 0.6 L Est GFR ( Amer) > 60 Est GFR (Non-Af Amer) > 60 POC Glucose (mg/dL) Random Glucose 275 H Calcium 9.6 Total Bilirubin 0.5 AST 24 ALT 22 Alkaline Phosphatase 80 Lactate Dehydrogenase Total Protein 7.4 Albumin 3.8 Globulin 3.6 Albumin/Globulin Ratio 1.0 SHEILA Screen Fingerstick Blood Sugar Results: 205 Critical Care Progress Note - Nutrition Nutrition: Nutrition Category Date Time Status NPO Diet [DIET] Diets 08/04/18 Breakfast Active Assessment/Plan - Assessment and Plan (Free Text) Assessment: 62 yo F with pmhx of HTN, DM2, Hypothyroid, GERD, schizophrenia s/p fall in fci, admitted for sepsis secondary to pneumonia, experienced an episode of bradycardia and code blue was called for PEA with ROSC after epinephrine x3. Plan: AMS - possibly 2/2 Toxic metabolic/anoxic encephalopathy - Schizophrenia - extubated - s/p intubation and weaning to CPAP with PS - Neuro: Dr. Corona: 24 HR EEG - MRI: 08/14 - Psych: Dr. Skinner - d/c Clozapine - Risperdone: increased to 0.5 mg BID - LP on 08/17/2018: F/U results - s/p Empiric IV Acyclovir Intubation -Mechanical ventilation -Reintubated on 08/12/2018 2/2 hypercarbia and hypoxemia Pneumonia -BCX neg x 4D (x2) -UCX yeast -AFB negative x3 -sputum: normal dolores -Quant gold: indeterminate -Legionella: negative -CXR: serial -s/p IVABX: zosyn, Vancomycin -ID: Dr. Castorena: d/c IV ABX; reculture blood if fever s/p Cardiac arrest -ROSC -EKG NSR -troponin: neg x4 Sepsis - Lactic acid: 1.9 from 3.2 on admission - BCX neg x 4D (x2) - UCX Yeast - fluconazole IV - afebrile now UTI -UCX; yeast -fluconazole IV DM 2 - SS Insulin medium coverage - Januvia - Metformin held HTN -Losartan 100 mg -Amlodipine -Vasotec Schizophrenia -Risperidone increased to 0.5 mg BID -Psychiatry: Dr. Skinner Constipation - Lactulose Hypothyroid - Levothyroxine 50 mcg Seizure activity -Resolved -Dr. Keller: focal seizure on EEG; keppra 1000 mg BID; D/C Clozapine -CT head: No intracranial hemorrhage or mass effect. Cerebral atrophy and similar chronic microvascular ischemic changes. Paranasal sinus inflammatory changes-interval air-fluid level/sinusitis sphenoid sinus now noted. -Brain MRI: 08/14/2018 -d/c Keppra -Depakote PT -Out of bed trial DVT/GI prophylaxis: -Lovenox -Protonix IV Case dw Dr. Obdulio Naranjo MD PGY2 <Dillon Mak - Last Filed: 08/19/18 15:31> CCU Subjective - Physician Review Subjective (Free Text): Attestation: Patient seen and examined at the bedside with Resident Dr. Justus Naranjo; and I agree with his outline of plans and management documented above and below, reflecting my review of all applicable clinical data, and participation in the care of the patient throughout the day in ICU; today, August 19, 2018. Discussed plans with daughter again today, apart from our last discussion on 08/14/18. Patient was extubated today after she remained calm off Precedex infusion and not exhibiting severe agitation and hyperactivity in bed as displayed 7 days ago after she self-extubated, given multiple anxiolytics, which resulted in affecting respiratory drive and subsequently re-intubated that same day in the evening. Today, after several days of new anti-psychotic therapy which was started on 08/14/[address] Skinner, and a change in AED therapy from Keppra / Depakote to Vimpat / Depakote. The patient so far has tolerated a trial at extubation with a much improved temperament, attends to our conversations with her in [place] and smiling with us, and raising her arms spontaneously. Daughter states her mentation was normal in the fci in which she was able to converse in a normal manner either in [place] or [place]ian, and able to perform normal ADLs such as shopping and taking the bus. It is unclear at this juncture in her course, if she will be able to achieve these same goals over time.
[2018-08-19] MEDS: Fluconazole IV 100mg/50 ml NS 50 ML IVPB SCH (08:30)
[2018-08-19] MEDS: Enoxaparin 40 mg Syringe SC SCH (08:31)
[2018-08-19] MEDS: RISPERIDONE 0.25 MG ODT PO SCH (08:36)
[2018-08-19] MEDS: Insulin Lispro (humaLOG) 100 Units/ml Inj SC SCH ×3 (09:40→21:56)
[2018-08-19] MEDS ORDERED: Iohexol 300 100 ML IJ ONE (09:42)
[2018-08-19] MEDS ORDERED: Sodium Chloride 0.9% 50 ML IV ONE (09:42)
--- NOTE | 2018-08-19 10:01 | CP.PCM.PN ---
Subjective - Date & Time of Evaluation Date of Evaluation: 08/19/18 Time of Evaluation: 10:01 - Subjective Subjective: pt seen and evaluated at bedside. No acute events overnight. Lying comfortably, NAD. Appears agitated. On precedex. Awake, follows me with her eyes and followed command to raise arms. BP remains uncontrolled. Still spiking fevers (101.4 F) this morning. No other events. Objective - Vital Signs/Intake and Output Vital Signs (last 24 hours): Temp Pulse Resp BP Pulse Ox 100.1 F H 62 22 160/76 H 100 08/19/18 08:23 08/19/18 08:33 08/19/18 08:23 08/19/18 08:33 08/19/18 08:00 Intake and Output: 08/19/18 08/19/18 06:59 18:59 Intake Total 1627 Output Total 1000 Balance 627 - Medications Medications: Current Medications Acetaminophen (Tylenol 325mg Tab) 650 mg PO Q6 PRN PRN Reason: Fever >100.4 F Last Admin: 08/05/18 05:35 Dose: 650 mg Acetaminophen (Tylenol 650mg/20.3ml Solution Ud) 650 mg PO Q6 PRN PRN Reason: Temperature Last Admin: 08/18/18 11:22 Dose: 650 mg Albuterol/Ipratropium (Duoneb 3 Mg/0.5 Mg (3 Ml) Ud) 3 ml INH RQ6 COUNT INCLUDES THE [facility] Last Admin: 08/19/18 07:52 Dose: 3 ml Amlodipine Besylate (Norvasc) 10 mg PO DAILY LESLIE Last Admin: 08/19/18 08:33 Dose: 10 mg Atorvastatin Calcium (Lipitor) 10 mg PO HS COUNT INCLUDES THE [facility] Last Admin: 08/18/18 21:12 Dose: 10 mg Carvedilol (Coreg) 25 mg PO Q12 LESLIE Last Admin: 08/19/18 08:29 Dose: 25 mg Dextrose (Dextrose 50% Inj) 0 ml IV STAT PRN; Protocol PRN Reason: Hypoglycemia Protocol Dextrose (Glutose 15) 0 gm PO ONCE PRN; Protocol PRN Reason: Hypoglycemia Protocol Divalproex Sodium (Depakote Er(Once Daily)) 1,250 mg PO HS COUNT INCLUDES THE [facility] Last Admin: 08/18/18 23:16 Dose: 1,250 mg Enalaprilat (Vasotec) 2.5 mg IVP Q6H COUNT INCLUDES THE [facility] Last Admin: 08/19/18 08:36 Dose: 2.5 mg Enoxaparin Sodium (Lovenox) 40 mg SC DAILY COUNT INCLUDES THE [facility]; Protocol Last Admin: 08/19/18 08:31 Dose: 40 mg Escitalopram Oxalate (Lexapro) 10 mg PO HS COUNT INCLUDES THE [facility] Last Admin: 08/18/18 21:12 Dose: 10 mg Glucagon (Glucagen Diagnostic Kit) 0 mg IM STAT PRN; Protocol PRN Reason: Hypoglycemia Protocol Haloperidol Lactate (Haldol) 5 mg IVP Q8 PRN PRN Reason: Agitation Last Admin: 08/13/18 09:45 Dose: 5 mg Hydralazine HCl (Apresoline) 20 mg IV Q4H PRN PRN Reason: Systolic Blood Pressure Hydralazine HCl (Apresoline) 50 mg PO Q6 COUNT INCLUDES THE [facility] Last Admin: 08/19/18 03:56 Dose: 50 mg Fluconazole (Diflucan Iv 100 Mg/50 Ml Ns) 50 mls @ 50 mls/hr IVPB DAILY COUNT INCLUDES THE [facility]; P rotocol Last Admin: 08/19/18 08:30 Dose: 50 mls/hr Ibuprofen (Motrin Tab) 600 mg PO Q6 PRN PRN Reason: Fever >100.4 F Last Admin: 08/19/18 07:23 Dose: 600 mg Insulin Detemir (Levemir) 35 units SC [facility] Last Admin: 08/18/18 21:12 Dose: 35 units Insulin Human Lispro (Humalog) 0 units SC Q6 COUNT INCLUDES THE [facility]; Protocol Last Admin: 08/19/18 09:40 Dose: 6 units Lacosamide (Vimpat) 100 mg PO BID COUNT INCLUDES THE [facility] Last Admin: 08/18/18 19:52 Dose: 100 mg Lactulose (Enulose) 20 gm PO Q12 PRN PRN Reason: Constipation Last Admin: 08/19/18 08:40 Dose: 20 gm Levothyroxine Sodium (Synthroid) 50 mcg PO DAILY@0630 COUNT INCLUDES THE [facility] Last Admin: 08/19/18 06:39 Dose: 50 mcg Losartan Potassium (Cozaar) 100 mg PO DAILY COUNT INCLUDES THE [facility] Last Admin: 08/19/18 08:29 Dose: 100 mg Multivitamins/Minerals (Therapeutic-M Tab) 1 tab PO DAILY COUNT INCLUDES THE [facility] Last Admin: 08/11/18 09:03 Dose: Not Given Pantoprazole Sodium (Protonix Inj) 40 mg IVP DAILY COUNT INCLUDES THE [facility] Last Admin: 08/19/18 08:33 Dose: 40 mg Risperidone (Risperidone Odt 0.25mg) 0.25 mg PO BID COUNT INCLUDES THE [facility] Last Admin: 08/19/18 08:36 Dose: 0.25 mg Sitagliptin Phosphate (Januvia) 100 mg PO HS COUNT INCLUDES THE [facility] Last Admin: 08/18/18 21:12 Dose: 100 mg - Labs Labs: 08/19/18 04:30 08/19/18 04:30 PT 12.2 Seconds (9.8-13.1) 08/04/18 00:30 INR 1.1 08/04/18 00:30 APTT 31.5 Seconds (25.6-37.1) 08/02/18 22:20 - Constitutional Appears: Non-toxic, No Acute Distress, Agitated - Eye Exam Eye Exam: EOMI, PERRL Additional comments: tracks with eyes, makes eye contact - ENT Exam ENT Exam: Mucous Membranes Moist - Neck Exam Neck Exam: Full ROM - Respiratory Exam Respiratory Exam: Clear to Ausculation Bilateral, NORMAL BREATHING PATTERN. absent: Decreased Breath Sounds, Rales, Rhonchi, Wheezes, Respiratory Distress - Cardiovascular Exam Cardiovascular Exam: Bradycardia, RRR, +S1, +S2. absent: Irregular Rhythm, JVD - GI/Abdominal Exam GI & Abdominal Exam: Soft, Normal Bowel Sounds. absent: Distended, Firm, Guarding, Rigid, Tenderness - Extremities Exam Extremities Exam: Normal Capillary Refill, Pedal Edema (trace edema ) - Neurological Exam Neurological Exam: Altered, Awake Additional comments: intubated, follows basic commands today - Skin Skin Exam: Dry, Intact, Warm Assessment and Plan - Assessment and Plan (Free Text) Assessment: 62 yo female from a longterm, with hx of DM II, schizophrenia and HTN; initially admitted for sepsis and pneumonia. Initial labs were significant for leukocytosis with bandemia; CXR showed atelectasis vs infiltrate and pt was started on vancomycin, zosyn and zithromax IV. During the admission, the pt was found to be bradycardic and became unresponsive. A Code Blue was called for suspected Pulseless Electrical Activity; compressions done ,was achieved after 3 rounds of epinephrine. She was then transferred to ICU. When weaned off sedation, mental status changes appreciated per family when compared to her baseline. Neurology was consulted. MRI : negative for acute CVA. Plan: 1. Altered Mental Status empirically treated with IV Acyclovir for poss Encephalitis Cutures negative MRI of Brain - no signs of Stroke nor Encephalitis unclear if AMS due to Psych dis Lumbar Puncture: unremarkable CPK: wnl CT abd: unremarkable LDH: 765 Chest CTA pending gangaley toxic encephalopathy as per neurology 2. s/p Cardio-Respiratory Arrest -s/p Code Blue (received 3 doses of epinephrine) -remains intubated -weaning trial today 3. Localization-related (focal) (partial) symptomatic epilepsy -as per neuro due to pts infection and antipsychotic lowered seizure threshold; appear to have resolved now -cont Keppra 1000 mg Q12 -Clozapine discontinued 4. Sepsis 2/2 to Pneumonia, likely bacterial -resolved -off Abx now -fever persists 5. Persistent Fever -infectious process vs [facility]EM[facility] vs central dysfunction -urine: + yeast, started on diflucan -chest CTA pending -investigation for occult malignancy 6. Anasarca -improving -IV lasix given -Renal function stable 7.Hypothyrodism -Chronic, uncontrolled -Levothyroxine 50mcg daily -TSH low- Levothyroxine decreased 8. DM tpe II , with Insulin use -Chronic -oral meds held -Levemir 30 units QHS -Insulin coverage scale and hypoglycemia protocol -Hypoglycemia protocol 9. HTN uncontrolled -cont Lasix, Amlodipine, Coreg and Losartan -Hydralazine 50mg QID started -c/w monitoring BPs 10. Schizophrenia -Chronic -Home meds held for now -cont Depakote -Psych consulted- rec Lexapro and Risperdal 11. Hypernatremia -resolved 12. Hypokalemia -resolved 13. DVT prophylaxis -Lovenox 40mg SC QD -SCDs 14. Code Status -full code
--- NOTE | 2018-08-19 10:18 | RAD ---
Date of service: 08/19/2018 HISTORY: intubated COMPARISON: 08/18/2018 FINDINGS: Endotracheal tube terminates 1.3 cm proximal to the rojas. The nasogastric tube terminates in the stomach. LUNGS: The lungs are well inflated and clear. PLEURA: No pleural effusions or pneumothorax. CARDIOVASCULAR: The heart is normal in size. No aortic atherosclerotic calcification present. OSSEOUS STRUCTURES: Within normal limits for the patient's age. VISUALIZED UPPER ABDOMEN: Normal. OTHER FINDINGS: None. IMPRESSION: No active pulmonary disease. Stable position of support tubes.
[2018-08-19] MEDS: Lacosamide 100 MG Tab PO SCH ×2 (11:34→17:03)
[2018-08-19 12:21] LABS: ABG ALLEN TEST YES; ARTERIAL BLOOD GAS HCO3 29.4 mmol/L (21-28); ARTERIAL BLOOD GAS HEMOGLOBIN 12.4 g/dL (11.7-17.4); ARTERIAL BLOOD GAS O2 CAPACITY 17.1 mL/dL (16-24); ARTERIAL BLOOD GAS O2 CONTENT 16.7 ML/dL (15-23); ARTERIAL BLOOD GAS O2 SAT 97.8 % (95-98); ARTERIAL BLOOD GAS PCO2 44 mm/Hg (35-45); ARTERIAL BLOOD GAS PH 7.45 (7.35-7.45); ARTERIAL BLOOD GAS PO2 97 mm/Hg (80-100)
--- NOTE | 2018-08-19 13:58 | CP.PCM.PN ---
Subjective - Date & Time of Evaluation Date of Evaluation: 08/19/18 Time of Evaluation: 08:00 - Subjective Subjective: afebrile awake alert recognizes daughter Objective - Vital Signs/Intake and Output Vital Signs (last 24 hours): Temp Pulse Resp BP Pulse Ox 98.4 F 64 24 152/75 H 100 08/19/18 12:00 08/19/18 12:00 08/19/18 12:00 08/19/18 12:00 08/19/18 12:00 Intake and Output: 08/19/18 08/19/18 06:59 18:59 Intake Total 1627 215 Output Total 1000 350 Balance 627 -135 - Medications Medications: Current Medications Acetaminophen (Tylenol 325mg Tab) 650 mg PO Q6 PRN PRN Reason: Fever >100.4 F Last Admin: 08/05/18 05:35 Dose: 650 mg Acetaminophen (Tylenol 650mg/20.3ml Solution Ud) 650 mg PO Q6 PRN PRN Reason: Temperature Last Admin: 08/18/18 11:22 Dose: 650 mg Albuterol/Ipratropium (Duoneb 3 Mg/0.5 Mg (3 Ml) Ud) 3 ml INH RQ6 [facility] Last Admin: 08/19/18 13:37 Dose: 3 ml Amlodipine Besylate (Norvasc) 10 mg PO DAILY [facility] Last Admin: 08/19/18 08:33 Dose: 10 mg Atorvastatin Calcium (Lipitor) 10 mg PO HS [facility] Last Admin: 08/18/18 21:12 Dose: 10 mg Carvedilol (Coreg) 25 mg PO Q12 [facility] Last Admin: 08/19/18 08:29 Dose: 25 mg Dextrose (Dextrose 50% Inj) 0 ml IV STAT PRN; Protocol PRN Reason: Hypoglycemia Protocol Dextrose (Glutose 15) 0 gm PO ONCE PRN; Protocol PRN Reason: Hypoglycemia Protocol Divalproex Sodium (Depakote Er(Once Daily)) 1,250 mg PO HS [facility] Last Admin: 08/18/18 23:16 Dose: 1,250 mg Enalaprilat (Vasotec) 2.5 mg IVP Q6H [facility] Last Admin: 08/19/18 08:36 Dose: 2.5 mg Enoxaparin Sodium (Lovenox) 40 mg SC DAILY [facility]; Protocol Last Admin: 08/19/18 08:31 Dose: 40 mg Escitalopram Oxalate (Lexapro) 10 mg PO HS [facility] Last Admin: 08/18/18 21:12 Dose: 10 mg Glucagon (Glucagen Diagnostic Kit) 0 mg IM STAT PRN; Protocol PRN Reason: Hypoglycemia Protocol Haloperidol Lactate (Haldol) 5 mg IVP Q8 PRN PRN Reason: Agitation Last Admin: 08/13/18 09:45 Dose: 5 mg Hydralazine HCl (Apresoline) 20 mg IV Q4H PRN PRN Reason: Systolic Blood Pressure Hydralazine HCl (Apresoline) 50 mg PO Q6 [facility] Last Admin: 08/19/18 11:17 Dose: 50 mg Fluconazole (Diflucan Iv 100 Mg/50 Ml Ns) 50 mls @ 50 mls/hr IVPB DAILY [facility]; Protocol Last Admin: 08/19/18 08:30 Dose: 50 mls/hr Ibuprofen (Motrin Tab) 600 mg PO Q6 PRN PRN Reason: Fever >100.4 F Last Admin: 08/19/18 07:23 Dose: 600 mg Insulin Detemir (Levemir) 35 units SC [facility] Last Admin: 08/18/18 21:12 Dose: 35 units Insulin Human Lispro (Humalog) 0 units SC Q6 [facility]; Protocol Last Admin: 08/19/18 09:40 Dose: 6 units Lacosamide (Vimpat) 100 mg PO BID [facility] Last Admin: 08/19/18 11:34 Dose: 100 mg Lactulose (Enulose) 20 gm PO Q12 PRN PRN Reason: Constipation Last Admin: 08/19/18 08:40 Dose: 20 gm Levothyroxine Sodium (Synthroid) 50 mcg PO DAILY@0630 [facility] Last Admin: 08/19/18 06:39 Dose: 50 mcg Losartan Potassium (Cozaar) 100 mg PO DAILY [facility] Last Admin: 08/19/18 08:29 Dose: 100 mg Multivitamins/Minerals (Therapeutic-M Tab) 1 tab PO DAILY [facility] Last Admin: 08/11/18 09:03 Dose: Not Given Pantoprazole Sodium (Protonix Inj) 40 mg IVP DAILY [facility] Last Admin: 08/19/18 08:33 Dose: 40 mg Risperidone (Risperidone Odt 0.25mg) 0.25 mg PO BID [facility] Last Admin: 08/19/18 08:36 Dose: 0.25 mg Sitagliptin Phosphate (Januvia) 100 mg PO HS [facility] Last Admin: 08/18/18 21:12 Dose: 100 mg - Labs Labs: 08/19/18 04:30 08/19/18 04:30 PT 12.2 Seconds (9.8-13.1) 08/04/18 00:30 INR 1.1 08/04/18 00:30 APTT 31.5 Seconds (25.6-37.1) 08/02/18 22:20 - Constitutional Appears: Non-toxic, Chronically Ill - Head Exam Head Exam: NORMOCEPHALIC - Eye Exam Eye Exam: absent: Scleral icterus - ENT Exam ENT Exam: Mucous Membranes Dry - Neck Exam Neck Exam: absent: Lymphadenopathy - Respiratory Exam Respiratory Exam: Decreased Breath Sounds - Cardiovascular Exam Cardiovascular Exam: REGULAR RHYTHM - GI/Abdominal Exam GI & Abdominal Exam: Distended - Rectal Exam Rectal Exam: Deferred - Exam Exam: NORMAL INSPECTION Assessment and Plan (1) Pneumonia Status: Acute (2) Severe sepsis Status: Acute - Assessment and Plan (Free Text) Assessment: d/c antibiotics reculture for fever PT/OT seizure precautions Plan: await repeat CT chest
--- NOTE | 2018-08-19 16:07 | CT ---
Date of service: 08/19/2018 PROCEDURE: CT Chest with contrast HISTORY: eval hilar adenopathy, persistent fever COMPARISON: Plain radiograph from 08/18/2018. TECHNIQUE: Contiguous axial images were obtained through the chest with intravenous contrast enhancement. Sagittal and coronal reconstructions were performed. IV contrast: 95 mL Omnipaque 300 Radiation dose: Total exam DLP = 511.66 mGy-cm. This CT exam was performed using one or more of the following dose reduction techniques: Automated exposure control, adjustment of the mA and/or kV according to patient size, and/or use of iterative reconstruction technique. FINDINGS: The endotracheal tube terminates in the mid trachea. The nasogastric tube terminates in the stomach. LUNGS: The lungs are well inflated. There is confluent airspace disease in the right lower lobe. The left lung is clear. MEDIASTINUM: The aorta is normal in caliber. Normal sized heart. No pericardial effusion. Main pulmonary artery unremarkable. No vascular congestion. No pathologic lymphadenopathy. There are aortic atherosclerotic calcifications and mural plaque present. PLEURA: No pleural fluid. No pneumothorax. BONES: No fracture. No destructive lesion. Within normal limits for the patient's age. UPPER ABDOMEN: Mild thickening of the adrenal glands without discrete nodule. The nasogastric tube terminates in the stomach. Fatty liver. OTHER FINDINGS: None. IMPRESSION: Confluent airspace disease in the right lower lobe may represent subsegmental atelectasis however superimposed pneumonia cannot be excluded. No large pleural effusion or pneumothorax. Endotracheal tube terminates in the mid trachea and nasogastric tube terminates in the stomach.
[2018-08-19] MEDS ORDERED: Labetalol 5 mg/ml Inj 20ML IVP STA (18:21)
[2018-08-19] MEDS ORDERED: Labetalol 5mg/ml (4ml) ONE (18:24)
[2018-08-19] MEDS ORDERED: Labetalol 5mg/ml (4ml) IVP STA (18:58)
[2018-08-19] MEDS: Risperidone M tab 0.5MG PO SCH (21:52)
[2018-08-19] MEDS: Divalproex 250 mg ER (ONCE DAILY formulation) PO SCH (21:55)
[2018-08-19] MEDS: Insulin Detemir 100 Units/ml Inj SC SCH (21:57)
[2018-08-20 00:32] LABS: SOURCE CSF
[2018-08-20] MEDS: Albuterol-Ipratrop 3 mg / 0.5 (3 ml) UD INH SCH ×4 (01:00→19:48)
[2018-08-20] MEDS: Enalaprilat 2.5 MG/2 ML IVP SCH ×4 (03:45→21:40)
[2018-08-20] MEDS: Insulin Lispro (humaLOG) 100 Units/ml Inj SC SCH ×4 (03:53→21:33)
[2018-08-20 05:34] LABS: ABG ALLEN TEST YES; ARTERIAL BLOOD GAS HEMOGLOBIN 11.5 g/dL (11.7-17.4); ARTERIAL BLOOD GAS O2 CAPACITY 15.9 mL/dL (16-24); ARTERIAL BLOOD GAS O2 CONTENT 15.5 ML/dL (15-23); ARTERIAL BLOOD GAS O2 SAT 97.7 % (95-98); ARTERIAL BLOOD GAS PCO2 40 mm/Hg (35-45); ARTERIAL BLOOD GAS PH 7.52 (7.35-7.45); ARTERIAL BLOOD GAS PO2 79 mm/Hg (80-100); ARTERIAL BLOOD GAS TCO2 33.9 mmol/L (22-28)
[2018-08-20] MEDS: Levothyroxine 50 MCG TAB PO SCH (05:57)
[2018-08-20 06:01] LABS: HEMOGLOBIN 11.6 g/dL (12.0-16.0); MEAN CELL VOLUME 80.9 fl (81.0-99.0); MEAN CORPUSCULAR HEMOGLOBIN 26.2 pg (27.0-31.0); MEAN CORPUSCULAR HGB CONC 32.4 g/dL (33.0-37.0); RBC 4.43 Mil/uL (3.80-5.20); WHITE BLOOD COUNT 6.6 K/uL (4.8-10.8)
[2018-08-20 06:28] LABS: ALBUMIN 4.3 g/dL (3.5-5.0); ALT/SGPT 29 U/L (9-52); AST/SGOT 28 U/L (14-36); BLOOD UREA NITROGEN 15 mg/dl (7-17); CALCIUM 10.2 mg/dL (8.4-10.2); GFR NON-AFRICAN AMERICAN > 60
--- NOTE | 2018-08-20 07:28 | CP.CCUPN ---
<Zi Naranjo - Last Filed: 08/20/18 17:13> CCU Subjective - Physician Review Subjective (Free Text): Pt seen and examined at bedside this am. On 4L NC saturating at 98%. No acute events overnight. Remains afebrile. Swallow eval today. Pt more alert and interactive. CCU Objective - Vital Signs / Intake & Output Vital Signs (Last 4 hours): Vital Signs Temp Pulse Resp BP Pulse Ox 08/20/18 06:00 79 18 191/88 H 100 08/20/18 04:00 99 F 78 21 184/85 H 96 Intake and Output (Last 8hrs): Intake & Output 08/19/18 08/20/18 08/20/18 22:59 06:59 14:59 Intake Total 40 0 Output Total 850 850 Balance -810 -850 Intake: IV 40 0 Oral 0 Output: Urine 850 850 Urethral (Ray) 850 850 Other: # Bowel Movements 1 3 - Physical Exam Physical Exam Limitations: Positive for: Altered Mental Status Head: Positive for: Normocephalic Extroacular Muscles: Positive for: EOMI Conjunctiva: Positive for: Normal Ears: Positive for: Normal Mouth: Positive for: Moist Mucous Membranes (ETT tube in place, yellow secretions, OG tube) Nose (External): Positive for: Other Neck: Positive for: Normal Range of Motion Respiratory/Chest: Positive for: Good Air Exchange, Rhonchi, Other (Nasal cannula). Negative for: Rales Cardiovascular: Positive for: Regular Rate and Rhythm, Normal S1, S2. Negative for: Murmurs Abdomen: Positive for: Distention, Normal Bowel Sounds. Negative for: Tenderness Upper Extremity: Positive for: Edema (trace pitting in upper extremities bl), NORMAL PULSES, Capillary Refill < 2s Lower Extremity: Positive for: NORMAL PULSES, Capillary Refill < 2 s. Negative for: Edema Neurological: Positive for: Other (Eyes open spotnaneously, non verbal, withdraws from pain) Skin: Positive for: Warm, Dry, Rashes Psychiatric: Positive for: Alert (Improved). Negative for: Oriented x 3, Agitated - Medications Active Medications: Active Medications Generic Name Dose Route Start Last Admin Trade Name Freq PRN Reason Stop Dose Admin Acetaminophen 650 mg 08/03/18 03:33 08/05/18 05:35 Tylenol 325mg Tab PO 650 mg Q6 PRN Administration Fever >100.4 F Acetaminophen 650 mg 08/15/18 22:15 08/18/18 11:22 Tylenol 650mg/20.3ml Solution Ud PO 650 mg Q6 PRN Administration Temperature Albuterol/Ipratropium 3 ml 08/16/18 14:00 08/20/18 01:00 Duoneb 3 Mg/0.5 Mg (3 Ml) Ud INH 3 ml RQ6 LESLIE Administration Amlodipine Besylate 10 mg 08/03/18 09:00 08/19/18 08:33 Norvasc PO 10 mg DAILY LESLIE Administration Atorvastatin Calcium 10 mg 08/03/18 22:00 08/19/18 21:52 Lipitor PO Not Given HS LESLIE Carvedilol 25 mg 08/15/18 21:00 08/19/18 21:54 Coreg PO Not Given Q12 LESLIE Dextrose 0 ml 08/03/18 03:35 Dextrose 50% Inj IV STAT PRN Hypoglycemia Protocol Protocol Dextrose 0 gm 08/03/18 03:35 Glutose 15 PO ONCE PRN Hypoglycemia Protocol Protocol Divalproex Sodium 1,250 mg 08/03/18 22:00 08/19/18 21:55 Depakote Er(Once Daily) PO Not Given HS LESLIE Enalaprilat 2.5 mg 08/17/18 03:15 08/20/18 03:45 Vasotec IVP 2.5 mg Q6H L[facility]LIE Administration Enoxaparin Sodium 40 mg 08/09/18 09:00 08/19/18 08:31 Lovenox SC 40 mg DAILY LESLIE Administration Protocol Escitalopram Oxalate 10 mg 08/03/18 22:00 08/19/18 21:52 Lexapro PO Not Given HS L[facility] Furosemide 20 mg 08/20/18 18:23 Lasix IVP 08/20/18 18:24 ONCE ONE Glucagon 0 mg 08/03/18 03:35 Glucagen Diagnostic Kit IM STAT PRN Hypoglycemia Protocol Protocol Haloperidol Lactate 5 mg 08/12/18 13:03 08/13/18 09:45 Haldol IVP 5 mg Q8 PRN Administration Agitation Hydralazine HCl 20 mg 08/16/18 14:00 Apresoline IV Q4H PRN Systolic Blood Pressure Hydralazine HCl 50 mg 08/18/18 10:00 08/19/18 21:54 Apresoline PO Not Given Q6 LESL[facility] Fluconazole 50 mls @ 50 mls/hr 08/17/18 14:00 08/19/18 08:30 Diflucan Iv 100 Mg/50 Ml Ns IVPB 50 mls/hr DAILY [facility] Administration Protocol Potassium Chloride 50 mls @ 50 mls/hr 08/20/18 07:00 Potassium Cl 10meq/50ml Sterile Water IVPB 08/20/18 10:59 Q1 LESLIE Ibuprofen 600 mg 08/03/18 13:30 08/19/18 07:23 Motrin Tab PO 600 mg Q6 PRN Administration Fever >100.4 F Insulin Detemir 35 units 08/17/18 22:00 08/19/18 21:57 Levemir SC Not Given HS [facility] Insulin Human Lispro 0 units 08/14/18 12:00 08/20/18 03:53 Humalog SC 4 units Q6 [facility] Administration Protocol Lacosamide 100 mg 08/18/18 19:15 08/19/18 17:03 Vimpat PO Not Given BID [facility] Lactulose 20 gm 08/08/18 17:16 08/19/18 08:40 Enulose PO 20 gm Q12 PRN Administration Constipation Levothyroxine Sodium 50 mcg 08/04/18 06:30 08/19/18 06:39 Synthroid PO 50 mcg DAILY@0630 [facility] Administration Losartan Potassium 100 mg 08/10/18 09:00 08/19/18 08:29 Cozaar PO 100 mg DAILY [facility] Administration Multivitamins/Minerals 1 tab 08/03/18 09:00 08/11/18 09:03 Therapeutic-M Tab PO Not Given DAILY [facility] Pantoprazole Sodium 40 mg 08/11/18 09:45 08/19/18 08:33 Protonix Inj IVP 40 mg DAILY [facility] Administration Risperidone 0.5 mg 08/19/18 21:00 08/19/18 21:52 Risperdal M-Tab PO Not Given Q12 [facility] Sitagliptin Phosphate 100 mg 08/03/18 22:00 08/19/18 21:53 Januvia PO Not Given HS [facility] - Patient Studies Lab Studies: Microbiology Studies 08/15/18 10:25 Blood Culture - Preliminary Blood NO GROWTH AFTER 4 DAYS 08/15/18 10:20 Blood Culture - Preliminary Blood NO GROWTH AFTER 4 DAYS Lab Studies 08/20/18 08/20/18 08/20/18 Range/Units 05:19 04:40 04:40 WBC 6.6 (4.8-10.8) K/uL RBC 4.43 (3.80-5.20) Mil/uL Hgb 11.6 L D (12.0-16.0) g/dL Hct 35.8 (34.0-47.0) % MCV 80.9 L (81.0-99.0) fl MCH 26.2 L (27.0-31.0) pg MCHC 32.4 L (33.0-37.0) g/dL RDW 16.0 H (11.5-14.5) % Plt Count 446 H D (130-400) K/uL pCO2 40 (35-45) mm/Hg pO2 79 L (80-100) mm/Hg HCO3 32.0 H (21-28) mmol/L ABG pH 7.52 H (7.35-7.45) ABG Total CO2 33.9 H (22-28) mmol/L ABG O2 Saturation 97.7 (95-98) % ABG O2 Content 15.5 (15-23) ML/dL ABG Base Excess 9.1 H (-2.0-3.0) mmol/L ABG Hemoglobin 11.5 L (11.7-17.4) g/dL ABG Carboxyhemoglobin 1.9 H (0.5-1.5) % POC ABG HHb (Measured) 2.2 (0.0-5.0) % ABG Methemoglobin 0.8 (0.0-3.0) % ABG O2 Capacity 15.9 L (16-24) mL/dL Bridger Test Yes A-a O2 Difference 71.0 mm/Hg Hgb O2 Saturation 95.2 (95.0-98.0) % Vent Mode FiO2 28.0 % PEEP Sodium 147 (132-148) mmol/l Potassium 3.0 L (3.6-5.0) MMOL/L Chloride 107 (98-107) mmol/L Carbon Dioxide 30 (22-30) mmol/L Anion Gap 13 (10-20) BUN 15 (7-17) mg/dl Creatinine 0.6 L (0.7-1.2) mg/dl Est GFR ( Amer) > 60 Est GFR (Non-Af Amer) > 60 POC Glucose (mg/dL) (65-110) mg/dL Random Glucose 226 H (65-105) mg/dL Calcium 10.2 (8.4-10.2) mg/dL Total Bilirubin 0.8 (0.2-1.3) mg/dl AST 28 (14-36) U/L ALT 29 (9-52) U/L Alkaline Phosphatase 95 (38-126) U/L Total Protein 8.5 H (6.3-8.2) G/DL Albumin 4.3 (3.5-5.0) g/dL Globulin 4.2 H (2.2-3.9) gm/dL Albumin/Globulin Ratio 1.0 (1.0-2.1) Procalcitonin (0.19-0.49) NG/ML CSF Lyme Disease DNA Lyme Specimen Source Lyme Disease Screen index 08/20/18 08/19/18 08/19/18 Range/Units 03:50 21:27 16:48 WBC (4.8-10.8) K/uL RBC (3.80-5.20) Mil/uL Hgb (12.0-16.0) g/dL Hct (34.0-47.0) % MCV (81.0-99.0) fl MCH (27.0-31.0) pg MCHC (33.0-37.0) g/dL RDW (11.5-14.5) % Plt Count (130-400) K/uL pCO2 (35-45) mm/Hg pO2 (80-100) mm/Hg HCO3 (21-28) mmol/L ABG pH (7.35-7.45) ABG Total CO2 (22-28) mmol/L ABG O2 Saturation (95-98) % ABG O2 Content (15-23) ML/dL ABG Base Excess (-2.0-3.0) mmol/L ABG Hemoglobin (11.7-17.4) g/dL ABG Carboxyhemoglobin (0.5-1.5) % POC ABG HHb (Measured) (0.0-5.0) % ABG Methemoglobin (0.0-3.0) % ABG O2 Capacity (16-24) mL/dL Bridger Test A-a O2 Difference mm/Hg Hgb O2 Saturation (95.0-98.0) % Vent Mode FiO2 % PEEP Sodium (132-148) mmol/l Potassium (3.6-5.0) MMOL/L Chloride (98-107) mmol/L Carbon Dioxide (22-30) mmol/L Anion Gap (10-20) BUN (7-17) mg/dl Creatinine (0.7-1.2) mg/dl Est GFR ( Amer) Est GFR (Non-Af Amer) POC Glucose (mg/dL) 224 H 131 H 175 H (65-110) mg/dL Random Glucose (65-105) mg/dL Calcium (8.4-10.2) mg/dL Total Bilirubin (0.2-1.3) mg/dl AST (14-36) U/L ALT (9-52) U/L Alkaline Phosphatase (38-126) U/L Total Protein (6.3-8.2) G/DL Albumin (3.5-5.0) g/dL Globulin (2.2-3.9) gm/dL Albumin/Globulin Ratio (1.0-2.1) Procalcitonin (0.19-0.49) NG/ML CSF Lyme Disease DNA Lyme Specimen Source Lyme Disease Screen index 08/19/18 08/19/18 08/19/18 Range/Units 12:16 09:19 04:30 WBC (4.8-10.8) K/uL RBC (3.80-5.20) Mil/uL Hgb (12.0-16.0) g/dL Hct (34.0-47.0) % MCV (81.0-99.0) fl MCH (27.0-31.0) pg MCHC (33.0-37.0) g/dL RDW (11.5-14.5) % Plt Count (130-400) K/uL pCO2 44 (35-45) mm/Hg pO2 97 (80-100) mm/Hg HCO3 29.4 H (21-28) mmol/L ABG pH 7.45 (7.35-7.45) ABG Total CO2 32.0 H (22-28) mmol/L ABG O2 Saturation 97.8 (95-98) % ABG O2 Content 16.7 (15-23) ML/dL ABG Base Excess 5.8 H (-2.0-3.0) mmol/L ABG Hemoglobin 12.4 (11.7-17.4) g/dL ABG Carboxyhemoglobin 1.4 (0.5-1.5) % POC ABG HHb (Measured) 2.1 (0.0-5.0) % ABG Methemoglobin 1.1 (0.0-3.0) % ABG O2 Capacity 17.1 (16-24) mL/dL Bridger Test Yes A-a O2 Difference 133.0 mm/Hg Hgb O2 Saturation 95.3 (95.0-98.0) % Vent Mode Cpap/ps FiO2 40.0 % PEEP 5 Sodium (132-148) mmol/l Potassium (3.6-5.0) MMOL/L Chloride (98-107) mmol/L Carbon Dioxide (22-30) mmol/L Anion Gap (10-20) BUN (7-17) mg/dl Creatinine (0.7-1.2) mg/dl Est GFR ( Amer) Est GFR (Non-Af Amer) POC Glucose (mg/dL) 276 H (65-110) mg/dL Random Glucose (65-105) mg/dL Calcium (8.4-10.2) mg/dL Total Bilirubin (0.2-1.3) mg/dl AST (14-36) U/L ALT (9-52) U/L Alkaline Phosphatase (38-126) U/L Total Protein (6.3-8.2) G/DL Albumin (3.5-5.0) g/dL Globulin (2.2-3.9) gm/dL Albumin/Globulin Ratio (1.0-2.1) Procalcitonin < 0.05 L (0.19-0.49) NG/ML CSF Lyme Disease DNA Lyme Specimen Source Lyme Disease Screen index 08/17/18 08/14/18 Range/Units 15:40 20:50 WBC (4.8-10.8) K/uL RBC (3.80-5.20) Mil/uL Hgb (12.0-16.0) g/dL Hct (34.0-47.0) % MCV (81.0-99.0) fl MCH (27.0-31.0) pg MCHC (33.0-37.0) g/dL RDW (11.5-14.5) % Plt Count (130-400) K/uL pCO2 (35-45) mm/Hg pO2 (80-100) mm/Hg HCO3 (21-28) mmol/L ABG pH (7.35-7.45) ABG Total CO2 (22-28) mmol/L ABG O2 Saturation (95-98) % ABG O2 Content (15-23) ML/dL ABG Base Excess (-2.0-3.0) mmol/L ABG Hemoglobin (11.7-17.4) g/dL ABG Carboxyhemoglobin (0.5-1.5) % POC ABG HHb (Measured) (0.0-5.0) % ABG Methemoglobin (0.0-3.0) % ABG O2 Capacity (16-24) mL/dL Bridger Test A-a O2 Difference mm/Hg Hgb O2 Saturation (95.0-98.0) % Vent Mode FiO2 % PEEP Sodium (132-148) mmol/l Potassium (3.6-5.0) MMOL/L Chloride (98-107) mmol/L Carbon Dioxide (22-30) mmol/L Anion Gap (10-20) BUN (7-17) mg/dl Creatinine (0.7-1.2) mg/dl Est GFR ( Amer) Est GFR (Non-Af Amer) POC Glucose (mg/dL) (65-110) mg/dL Random Glucose (65-105) mg/dL Calcium (8.4-10.2) mg/dL Total Bilirubin (0.2-1.3) mg/dl AST (14-36) U/L ALT (9-52) U/L Alkaline Phosphatase (38-126) U/L Total Protein (6.3-8.2) G/DL Albumin (3.5-5.0) g/dL Globulin (2.2-3.9) gm/dL Albumin/Globulin Ratio (1.0-2.1) Procalcitonin (0.19-0.49) NG/ML CSF Lyme Disease DNA Not detected Lyme Specimen Source Csf Lyme Disease Screen <0.90 index Laboratory Results - last 24 hr 08/14/18 08/17/18 08/19/18 20:50 15:40 04:30 WBC RBC Hgb Hct MCV MCH MCHC RDW Plt Count pCO2 pO2 HCO3 ABG pH ABG Total CO2 ABG O2 Saturation ABG O2 Content ABG Base Excess ABG Hemoglobin ABG Carboxyhemoglobin POC ABG HHb (Measured) ABG Methemoglobin ABG O2 Capacity Bridger Test A-a O2 Difference Hgb O2 Saturation Vent Mode FiO2 PEEP Sodium Potassium Chloride Carbon Dioxide Anion Gap BUN Creatinine Est GFR ( Amer) Est GFR (Non-Af Amer) POC Glucose (mg/dL) Random Glucose Calcium Total Bilirubin AST ALT Alkaline Phosphatase Total Protein Albumin Globulin Albumin/Globulin Ratio Procalcitonin < 0.05 L CSF Lyme Disease DNA Not detected Lyme Specimen Source Csf Lyme Disease Screen <0.90 08/19/18 08/19/18 08/19/18 09:19 12:16 16:48 WBC RBC Hgb Hct MCV MCH MCHC RDW Plt Count pCO2 44 pO2 97 HCO3 29.4 H ABG pH 7.45 ABG Total CO2 32.0 H ABG O2 Saturation 97.8 ABG O2 Content 16.7 ABG Base Excess 5.8 H ABG Hemoglobin 12.4 ABG Carboxyhemoglobin 1.4 POC ABG HHb (Measured) 2.1 ABG Methemoglobin 1.1 ABG O2 Capacity 17.1 Bridger Test Yes A-a O2 Difference 133.0 Hgb O2 Saturation 95.3 Vent Mode Cpap/ps FiO2 40.0 PEEP 5 Sodium Potassium Chloride Carbon Dioxide Anion Gap BUN Creatinine Est GFR ( Amer) Est GFR (Non-Af Amer) POC Glucose (mg/dL) 276 H 175 H Random Glucose Calcium Total Bilirubin AST ALT Alkaline Phosphatase Total Protein Albumin Globulin Albumin/Globulin Ratio Procalcitonin CSF Lyme Disease DNA Lyme Specimen Source Lyme Disease Screen 08/19/18 08/20/18 08/20/18 21:27 03:50 04:40 WBC 6.6 RBC 4.43 Hgb 11.6 L D Hct 35.8 MCV 80.9 L MCH 26.2 L MCHC 32.4 L RDW 16.0 H Plt Count 446 H D pCO2 pO2 HCO3 ABG pH ABG Total CO2 ABG O2 Saturation ABG O2 Content ABG Base Excess ABG Hemoglobin ABG Carboxyhemoglobin POC ABG HHb (Measured) ABG Methemoglobin ABG O2 Capacity Bridger Test A-a O2 Difference Hgb O2 Saturation Vent Mode FiO2 PEEP Sodium Potassium Chloride Carbon Dioxide Anion Gap BUN Creatinine Est GFR ( Amer) Est GFR (Non-Af Amer) POC Glucose (mg/dL) 131 H 224 H Random Glucose Calcium Total Bilirubin AST ALT Alkaline Phosphatase Total Protein Albumin Globulin Albumin/Globulin Ratio Procalcitonin CSF Lyme Disease DNA Lyme Specimen Source Lyme Disease Screen 08/20/18 08/20/18 04:40 05:19 WBC RBC Hgb Hct MCV MCH MCHC RDW Plt Count pCO2 40 pO2 79 L HCO3 32.0 H ABG pH 7.52 H ABG Total CO2 33.9 H ABG O2 Saturation 97.7 ABG O2 Content 15.5 ABG Base Excess 9.1 H ABG Hemoglobin 11.5 L ABG Carboxyhemoglobin 1.9 H POC ABG HHb (Measured) 2.2 ABG Methemoglobin 0.8 ABG O2 Capacity 15.9 L Bridger Test Yes A-a O2 Difference 71.0 Hgb O2 Saturation 95.2 Vent Mode FiO2 28.0 PEEP Sodium 147 Potassium 3.0 L Chloride 107 Carbon Dioxide 30 Anion Gap 13 BUN 15 Creatinine 0.6 L Est GFR ( Amer) > 60 Est GFR (Non-Af Amer) > 60 POC Glucose (mg/dL) Random Glucose 226 H Calcium 10.2 Total Bilirubin 0.8 AST 28 ALT 29 Alkaline Phosphatase 95 Total Protein 8.5 H Albumin 4.3 Globulin 4.2 H Albumin/Globulin Ratio 1.0 Procalcitonin CSF Lyme Disease DNA Lyme Specimen Source Lyme Disease Screen Fingerstick Blood Sugar Results: 224 Review of Systems - Review of Systems Systems not reviewed;Unavailable: Altered Mental Status Critical Care Progress Note - Nutrition Nutrition: Nutrition Category Date Time Status NPO Diet [DIET] Diets 08/04/18 Breakfast Active Assessment/Plan - Assessment and Plan (Free Text) Assessment: 62 yo F with pmhx of HTN, DM2, Hypothyroid, GERD, schizophrenia s/p fall in [facility], admitted for sepsis secondary to pneumonia, experienced an episode of bradycardia and code blue was called for PEA with ROSC after epinephrine x3. Plan: AMS - possibly 2/2 Toxic metabolic/anoxic encephalopathy - Schizophrenia - extubated on NC 4L saturating well >92% - s/p intubation and weaning to CPAP with PS - Neuro: Dr. Corona: 24 HR EEG - MRI: 08/14 - Psych: Dr. Skinner: start clozaril 25 mg; increase by 25 mg weekly and f/u ANS, WBC, side effects: fever, agranulocytosis, myocarditis, seizure - d/c Risperdone - LP on 08/17/2018 - s/p Empiric IV Acyclovir Pneumonia -BCX neg x 5D (x2) -UCX yeast -AFB negative x3 -sputum: normal dolores -Quant gold: indeterminate -Legionella: negative -CXR: serial -s/p IVABX: zosyn, Vancomycin -ID: Dr. Castorena: d/c IV ABX; reculture blood if fever HypoKalemia -3.0 -s/p K 40 meq -monitor CMP s/p Cardiac arrest -ROSC -EKG NSR -troponin: neg x4 Sepsis - Lactic acid: 1.9 from 3.2 on admission - BCX neg x 5D (x2) - UCX Yeast - fluconazole IV - afebrile now UTI -UCX; yeast -fluconazole IV DM 2 - SS Insulin medium coverage - Januvia - Metformin held HTN -Losartan 100 mg -Amlodipine -Vasotec Schizophrenia -d/c Risperidone -Psychiatry: Dr. Skinner start clozaril 25 mg; increase by 25 mg weekly and f/u ANS, WBC, side effects: fever, agranulocytosis, myocarditis, seizure Constipation - Lactulose Hypothyroid - Levothyroxine 50 mcg Seizure activity -Resolved -Dr. Keller: -CT head: No intracranial hemorrhage or mass effect. Cerebral atrophy and sim ilar chronic microvascular ischemic changes. Paranasal sinus inflammatory changes-interval air-fluid level/sinusitis sphenoid sinus now noted. -Brain MRI: 08/14/2018 -Depakote loading dose today, hold PM dose PT -Out of bed trial DVT/GI prophylaxis: -Lovenox -Protonix IV Case dw Dr. Obdulio Naranjo MD PGY2 <Dillon Mak - Last Filed: 08/20/18 18:27> CCU Subjective - Physician Review Subjective (Free Text): Attestation: Patient seen and examined at the bedside with Resident Dr. Justus Naranjo; and I agree with his outline of plans and management documented above and below, reflecting my review of all applicable clinical data, and participation in the care of the patient throughout the day in ICU; today, August 20, 2018.
[2018-08-20] MEDS: Potassium CL 10 MEQ/50 ML 50 ML IVPB SCH ×4 (08:13→11:35)
[2018-08-20] MEDS: Fluconazole IV 100mg/50 ml NS 50 ML IVPB SCH (08:53)
--- NOTE | 2018-08-20 09:22 | CP.PCM.PN ---
Subjective - Date & Time of Evaluation Date of Evaluation: 08/20/18 Time of Evaluation: 09:22 - Subjective Subjective: Pt seen and evaluated at bedside. No acute events overnight. Lying in bed, awake, alert, on venturi mask, NAD. Follows simple commands. Extubated on 08/19, tolerated well. BP remains uncontrolled. Afebrile. Awaiting swallow eval. No oth er events/complaints. Objective - Vital Signs/Intake and Output Vital Signs (last 24 hours): Temp Pulse Resp BP Pulse Ox 97.7 F 81 23 190/97 H 100 08/20/18 08:00 08/20/18 08:16 08/20/18 08:00 08/20/18 08:16 08/20/18 08:00 Intake and Output: 08/20/18 08/20/18 06:59 18:59 Intake Total 20 Output Total 850 Balance -830 - Medications Medications: Current Medications Acetaminophen (Tylenol 325mg Tab) 650 mg PO Q6 PRN PRN Reason: Fever >100.4 F Last Admin: 08/05/18 05:35 Dose: 650 mg Acetaminophen (Tylenol 650mg/20.3ml Solution Ud) 650 mg PO Q6 PRN PRN Reason: Temperature Last Admin: 08/18/18 11:22 Dose: 650 mg Albuterol/Ipratropium (Duoneb 3 Mg/0.5 Mg (3 Ml) Ud) 3 ml INH RQ6 [facility] Last Admin: 08/20/18 08:03 Dose: 3 ml Amlodipine Besylate (Norvasc) 10 mg PO DAILY [facility] Last Admin: 08/19/18 08:33 Dose: 10 mg Atorvastatin Calcium (Lipitor) 10 mg PO HS [facility] Last Admin: 08/19/18 21:52 Dose: Not Given Carvedilol (Coreg) 25 mg PO Q12 [facility] Last Admin: 08/19/18 21:54 Dose: Not Given Clonidine HCl (Catapres) 0.1 mg PO BID [facility] Dextrose (Dextrose 50% Inj) 0 ml IV STAT PRN; Protocol PRN Reason: Hypoglycemia Protocol Dextrose (Glutose 15) 0 gm PO ONCE PRN; Protocol PRN Reason: Hypoglycemia Protocol Divalproex Sodium (Depakote Er(Once Daily)) 1,250 mg PO HS [facility] Last Admin: 08/19/18 21:55 Dose: Not Given Enalaprilat (Vasotec) 2.5 mg IVP Q6H [facility] Last Admin: 08/20/18 08:20 Dose: 2.5 mg Enoxaparin Sodium (Lovenox) 40 mg SC DAILY [facility]; Protocol Last Admin: 08/19/18 08:31 Dose: 40 mg Escitalopram Oxalate (Lexapro) 10 mg PO HS [facility] Last Admin: 08/19/18 21:52 Dose: Not Given Furosemide (Lasix) 20 mg IVP ONCE ONE Stop: 08/20/18 18:24 Glucagon (Glucagen Diagnostic Kit) 0 mg IM STAT PRN; Protocol PRN Reason: Hypoglycemia Protocol Haloperidol Lactate (Haldol) 5 mg IVP Q8 PRN PRN Reason: Agitation Last Admin: 08/13/18 09:45 Dose: 5 mg Hydralazine HCl (Apresoline) 20 mg IV Q4H PRN PRN Reason: Systolic Blood Pressure Last Admin: 08/20/18 08:16 Dose: 20 mg Hydralazine HCl (Apresoline) 50 mg PO Q6 [facility] Last Admin: 08/19/18 21:54 Dose: Not Given Fluconazole (Diflucan Iv 100 Mg/50 Ml Ns) 50 mls @ 50 mls/hr IVPB DAILY [facility]; Protocol Last Admin: 08/20/18 08:53 Dose: 50 mls/hr Potassium Chloride (Potassium Cl 10meq/50ml Sterile Water) 50 mls @ 50 mls/hr IVPB Q1 [facility] Stop: 08/20/18 10:59 Last Admin: 08/20/18 08:13 Dose: 50 mls/hr Ibuprofen (Motrin Tab) 600 mg PO Q6 PRN PRN Reason: Fever >100.4 F Last Admin: 08/19/18 07:23 Dose: 600 mg Insulin Detemir (Levemir) 35 units SC HS [facility] Last Admin: 08/19/18 21:57 Dose: Not Given Insulin Human Lispro (Humalog) 0 units SC Q6 [facility]; Protocol Last Admin: 08/20/18 03:53 Dose: 4 units Lacosamide (Vimpat) 100 mg PO BID [facility] Last Admin: 08/19/18 17:03 Dose: Not Given Lactulose (Enulose) 20 gm PO Q12 PRN PRN Reason: Constipation Last Admin: 08/19/18 08:40 Dose: 20 gm Levothyroxine Sodium (Synthroid) 50 mcg PO DAILY@0630 [facility] Last Admin: 08/19/18 06:39 Dose: 50 mcg Losartan Potassium (Cozaar) 100 mg PO DAILY [facility] Last Admin: 08/19/18 08:29 Dose: 100 mg Multivitamins/Minerals (Therapeutic-M Tab) 1 tab PO DAILY [facility] Last Admin: 08/11/18 09:03 Dose: Not Given Pantoprazole Sodium (Protonix Inj) 40 mg IVP DAILY [facility] Last Admin: 08/19/18 08:33 Dose: 40 mg Risperidone (Risperdal M-Tab) 0.5 mg PO Q12 [facility] Last Admin: 08/19/18 21:52 Dose: Not Given Sitagliptin Phosphate (Januvia) 100 mg PO HS [facility] Last Admin: 08/19/18 21:53 Dose: Not Given - Labs Labs: 08/20/18 04:40 08/20/18 04:40 PT 12.2 Seconds (9.8-13.1) 08/04/18 00:30 INR 1.1 08/04/18 00:30 APTT 31.5 Seconds (25.6-37.1) 08/02/18 22:20 - Constitutional Appears: Non-toxic, No Acute Distress, Other (on venturi mask, laying comfortably ) - Head Exam Head Exam: ATRAUMATIC - Eye Exam Eye Exam: EOMI Pupil Exam: PERRL - ENT Exam ENT Exam: Mucous Membranes Moist - Respiratory Exam Respiratory Exam: Clear to Ausculation Bilateral, NORMAL BREATHING PATTERN. absent: Rales, Rhonchi, Wheezes - Cardiovascular Exam Cardiovascular Exam: REGULAR RHYTHM, RRR, +S1, +S2. absent: Tachycardia, JVD, Rubs, Murmur - GI/Abdominal Exam GI & Abdominal Exam: Soft, Normal Bowel Sounds. absent: Tenderness - Neurological Exam Neurological Exam: Alert, Altered (follows simple commands ), Awake - Skin Skin Exam: Dry, Intact Assessment and Plan - Assessment and Plan (Free Text) Assessment: 62 yo female from a care home, with hx of DM II, schizophrenia and HTN; initially admitted for sepsis and pneumonia. Initial labs were significant for leukocytosis with bandemia; CXR showed atelectasis vs infiltrate and pt was started on vancomycin, zosyn and zithromax IV. During the admission, the pt was found to be bradycardic and became unresponsive. A Code Blue was called for s uspected Pulseless Electrical Activity; compressions done ,was achieved after 3 rounds of epinephrine. She was then transferred to ICU. When weaned off sedation, mental status changes appreciated per family when compared to her baseline. Improving. Plan: 1. Altered Mental Status improving, pt follows simple commands, and recognized daughter empirically treated with IV Acyclovir Cutures negative MRI of Brain - no signs of Stroke nor Encephalitis unclear if AMS due to Psych dis Lumbar Puncture: unremarkable CPK: wnl CT abd: unremarkable Procalcitonin 0.05 LDH: 765 likely toxic encephalopathy as per neurology 2. Hypokalemia -3.0 -replete -f/u AM BMP 3. Hypertension -uncontrolled -cont Lasix, Amlodipine, Coreg and Losartan -Hydralazine 100mg QID -clonopine 0.1mg Q12H started -c/w monitoring BPs 4. s/p Cardio-Respiratory Arrest -s/p Code Blue (received 3 doses of epinephrine) -extubated, tolerating well 5. Localization-related (focal) (partial) symptomatic epilepsy -as per neuro due to pts infection and antipsychotic lowered seizure threshold; appear to have resolved now -cont Keppra 1000 mg Q12 -Clozapine discontinued 6. Sepsis 2/2 to Pneumonia, likely bacterial -resolved 7. Fever -resolved 8. Anasarca -improving -IV lasix given -Renal function stable 9.Hypothyrodism -Chronic, uncontrolled -Levothyroxine 50mcg daily 10. IDDM2 -Chronic -oral meds held -Levemir 35 units QHS -Insulin coverage scale and hypoglycemia protocol -Hypoglycemia protocol 11. Schizophrenia -Chronic -Home meds held for now -cont Depakote -Psych consulted- rec Lexapro and Risperdal 12. DVT prophylaxis -Lovenox 40mg SC QD -SCDs 13. Code Status -full code
[2018-08-20 11:30] LABS: SPECIMEN SOURCE CSF
[2018-08-20] MEDS: Risperidone M tab 0.5MG PO SCH (11:58)
[2018-08-20] MEDS: Enoxaparin 40 mg Syringe SC SCH (12:03)
[2018-08-20] MEDS: Lacosamide 100 MG Tab PO SCH ×2 (12:48→17:17)
[2018-08-20] MEDS ORDERED: Potassium Chloride 20 mEq/15 ml LIQ UD PO ONE (13:37)
--- NOTE | 2018-08-20 15:54 | CP.PCM.CON ---
History of Present Illness - History of Present Illness History of Present Illness: follow up consult Patient is a 62 y/o female with previous psychiatric history of schizofrenia, HTN, DM sent from senior living for fall. In ED found to be febrile with elevated WBC count , bandemia,elevated lactic acid , pt was confused was intubated, pt has been on clozaril, but had a seizure so clozaril was stopped pt extubated today on evaluation, more alert and awake but continues to be confused and anxious, unale to further assess mental status treatment plan discussed with daughter in length Past Patient History - Past Medical History & Family History Past Medical History?: Yes - Past Social History Smoking Status: Light Smoker < 10 Cigarettes Daily - CARDIAC Hx Hypercholesterolemia: Yes Hx Hypertension: Yes - PULMONARY Hx Respiratory Disorders: Yes Hx Pneumonia: Yes - NEUROLOGICAL Hx Neurological Disorder: No - HEENT Hx HEENT Problems: No - RENAL Hx Chronic Kidney Disease: No - ENDOCRINE/METABOLIC Hx Endocrine Disorders: Yes Hx Diabetes Mellitus Type 2: Yes Hx Hypothyroidism: Yes - HEMATOLOGICAL/ONCOLOGICAL Hx Blood Disorders: No Hx AIDS: No Hx Human Immunodeficiency Virus (HIV): No - INTEGUMENTARY Hx Dermatological Problems: No - MUSCULOSKELETAL/RHEUMATOLOGICAL Hx Musculoskeletal Disorders: No Hx Falls: Yes - GASTROINTESTINAL Hx Gastritis: Yes - GENITOURINARY/GYNECOLOGICAL Hx Genitourinary Disorders: No - PSYCHIATRIC Hx Psychophysiologic Disorder: Yes Hx Depression: Yes Hx Schizophrenia: Yes Hx Substance Use: No - SURGICAL HISTORY Hx Surgeries: No - ANESTHESIA Hx Anesthesia: No Meds Allergies/Adverse Reactions: Allergies Allergy/AdvReac Type Severity Reaction Status Date / Time No Known Allergies Allergy Verified 08/02/18 21:49 - Medications Medications: Current Medications Acetaminophen (Tylenol 325mg Tab) 650 mg PO Q6 PRN PRN Reason: Fever >100.4 F Last Admin: 08/05/18 05:35 Dose: 650 mg Acetaminophen (Tylenol 650mg/20.3ml Solution Ud) 650 mg PO Q6 PRN PRN Reason: Temperature Last Admin: 08/18/18 11:22 Dose: 650 mg Albuterol/Ipratropium (Duoneb 3 Mg/0.5 Mg (3 Ml) Ud) 3 ml INH RQ6 [facility] Last Admin: 08/20/18 13:19 Dose: 3 ml Amlodipine Besylate (Norvasc) 10 mg PO DAILY [facility] Last Admin: 08/20/18 12:20 Dose: 10 mg Atorvastatin Calcium (Lipitor) 10 mg PO HS [facility] Last Admin: 08/19/18 21:52 Dose: Not Given Carvedilol (Coreg) 25 mg PO Q12 [facility] Last Admin: 08/20/18 12:17 Dose: 25 mg Clonidine HCl (Catapres) 0.1 mg PO BID [facility] Last Admin: 08/20/18 12:46 Dose: 0.1 mg Clozapine (Clozaril) 25 mg PO DAILY [facility] Dextrose (Dextrose 50% Inj) 0 ml IV STAT PRN; Protocol PRN Reason: Hypoglycemia Protocol Dextrose (Glutose 15) 0 gm PO ONCE PRN; Protocol PRN Reason: Hypoglycemia Protocol Divalproex Sodium (Depakote Er(Once Daily)) 1,250 mg PO HS [facility] Last Admin: 08/19/18 21:55 Dose: Not Given Enalaprilat (Vasotec) 2.5 mg IVP Q6H [facility] Last Admin: 08/20/18 08:20 Dose: 2.5 mg Enoxaparin Sodium (Lovenox) 40 mg SC DAILY [facility]; Protocol Last Admin: 08/20/18 12:03 Dose: 40 mg Escitalopram Oxalate (Lexapro) 10 mg PO HS [facility] Last Admin: 08/20/18 11:58 Dose: 10 mg Furosemide (Lasix) 20 mg IVP DAILY [facility] Last Admin: 08/20/18 13:58 Dose: 20 mg Glucagon (Glucagen Diagnostic Kit) 0 mg IM STAT PRN; Protocol PRN Reason: Hypoglycemia Protocol Haloperidol Lactate (Haldol) 5 mg IVP Q8 PRN PRN Reason: Agitation Last Admin: 08/13/18 09:45 Dose: 5 mg Hydralazine HCl (Apresoline) 20 mg IV Q4H PRN PRN Reason: Systolic Blood Pressure Last Admin: 08/20/18 08:16 Dose: 20 mg Hydralazine HCl (Apresoline) 50 mg PO Q6 [facility] Last Admin: 08/20/18 12:15 Dose: 50 mg Fluconazole (Diflucan Iv 100 Mg/50 Ml Ns) 50 mls @ 50 mls/hr IVPB DAILY [facility]; Protocol Last Admin: 08/20/18 08:53 Dose: 50 mls/hr Ibuprofen (Motrin Tab) 600 mg PO Q6 PRN PRN Reason: Fever >100.4 F Last Admin: 08/19/18 07:23 Dose: 600 mg Insulin Detemir (Levemir) 35 units SC HS [facility] Last Admin: 08/19/18 21:57 Dose: Not Given Insulin Human Lispro (Humalog) 0 units SC Q6 [facility]; Protocol Last Admin: 08/20/18 11:57 Dose: 6 units Lacosamide (Vimpat) 100 mg PO BID [facility] Last Admin: 08/20/18 12:48 Dose: 100 mg Lactulose (Enulose) 20 gm PO Q12 PRN PRN Reason: Constipation Last Admin: 08/19/18 08:40 Dose: 20 gm Levothyroxine Sodium (Synthroid) 50 mcg PO DAILY@0630 [facility] Last Admin: 08/19/18 06:39 Dose: 50 mcg Losartan Potassium (Cozaar) 100 mg PO DAILY [facility] Last Admin: 08/20/18 12:18 Dose: 100 mg Multivitamins/Minerals (Therapeutic-M Tab) 1 tab PO DAILY [facility] Last Admin: 08/11/18 09:03 Dose: Not Given Pantoprazole Sodium (Protonix Inj) 40 mg IVP DAILY [facility] Last Admin: 08/20/18 10:00 Dose: 40 mg Sitagliptin Phosphate (Januvia) 100 mg PO HS [facility] Last Admin: 08/19/18 21:53 Dose: Not Given Results - Vital Signs Recent Vital Signs: Last Vital Signs Temp 99.8 F H 08/20/18 12:00 Pulse 86 08/20/18 14:00 Resp 30 H 08/20/18 14:00 BP 165/77 H 08/20/18 14:00 Pulse Ox 97 08/20/18 14:00 - Labs Result Diagrams: 08/20/18 04:40 08/20/18 04:40 Labs: Laboratory Results - last 24 hr 08/17/18 08/19/18 08/19/18 15:40 16:48 21:27 WBC RBC Hgb Hct MCV MCH MCHC RDW Plt Count pCO2 pO2 HCO3 ABG pH ABG Total CO2 ABG O2 Saturation ABG O2 Content ABG Base Excess ABG Hemoglobin ABG Carboxyhemoglobin POC ABG HHb (Measured) ABG Methemoglobin ABG O2 Capacity Bridger Test A-a O2 Difference Hgb O2 Saturation FiO2 Sodium Potassium Chloride Carbon Dioxide Anion Gap BUN Creatinine Est GFR ( Amer) Est GFR (Non-Af Amer) POC Glucose (mg/dL) 175 H 131 H Random Glucose Calcium Total Bilirubin AST ALT Alkaline Phosphatase Total Protein Albumin Globulin Albumin/Globulin Ratio CSF Lyme Disease DNA Not detected Lyme Specimen Source Csf HSV Source Description Csf HSV I DNA PCR Not detected HSV II DNA PCR Not detected 08/20/18 08/20/18 08/20/18 03:50 04:40 04:40 WBC 6.6 RBC 4.43 Hgb 11.6 L D Hct 35.8 MCV 80.9 L MCH 26.2 L MCHC 32.4 L RDW 16.0 H Plt Count 446 H D pCO2 pO2 HCO3 ABG pH ABG Total CO2 ABG O2 Saturation ABG O2 Content ABG Base Excess ABG Hemoglobin ABG Carboxyhemoglobin POC ABG HHb (Measured) ABG Methemoglobin ABG O2 Capacity Bridger Test A-a O2 Difference Hgb O2 Saturation FiO2 Sodium 147 Potassium 3.0 L Chloride 107 Carbon Dioxide 30 Anion Gap 13 BUN 15 Creatinine 0.6 L Est GFR ( Amer) > 60 Est GFR (Non-Af Amer) > 60 POC Glucose (mg/dL) 224 H Random Glucose 226 H Calcium 10.2 Total Bilirubin 0.8 AST 28 ALT 29 Alkaline Phosphatase 95 Total Protein 8.5 H Albumin 4.3 Globulin 4.2 H Albumin/Globulin Ratio 1.0 CSF Lyme Disease DNA Lyme Specimen Source HSV Source Description HSV I DNA PCR HSV II DNA PCR 08/20/18 08/20/18 05:19 11:43 WBC RBC Hgb Hct MCV MCH MCHC RDW Plt Count pCO2 40 pO2 79 L HCO3 32.0 H ABG pH 7.52 H ABG Total CO2 33.9 H ABG O2 Saturation 97.7 ABG O2 Content 15.5 ABG Base Excess 9.1 H ABG Hemoglobin 11.5 L ABG Carboxyhemoglobin 1.9 H POC ABG HHb (Measured) 2.2 ABG Methemoglobin 0.8 ABG O2 Capacity 15.9 L Bridger Test Yes A-a O2 Difference 71.0 Hgb O2 Saturation 95.2 FiO2 28.0 Sodium Potassium Chloride Carbon Dioxide Anion Gap BUN Creatinine Est GFR ( Amer) Est GFR (Non-Af Amer) POC Glucose (mg/dL) 255 H Random Glucose Calcium Total Bilirubin AST ALT Alkaline Phosphatase Total Protein Albumin Globulin Albumin/Globulin Ratio CSF Lyme Disease DNA Lyme Specimen Source HSV Source Description HSV I DNA PCR HSV II DNA PCR Assessment & Plan - Assessment and Plan (Free Text) Assessment: schizophrenia seizure disorder Plan: recommend increase depakote to 1500 mg/ follow up on depakote level with target 75-100 wbc noted 6.9 recommend starting clozaril 25mg , increase by 25mg weekly after follow up on ANC and WBC monitor pt for possible side effects of clozaril including fever, agranulcytosis, myocarditis and seizure
[2018-08-20] MEDS ORDERED: Divalproex 500 mg ER (ONCE DAILY formulation) PO STA (16:20)
[2018-08-20] MEDS: Insulin Detemir 100 Units/ml Inj SC SCH (21:38)
[2018-08-20] MEDS: Divalproex 250 mg ER (ONCE DAILY formulation) PO SCH (23:27)
[2018-08-21] MEDS: Albuterol-Ipratrop 3 mg / 0.5 (3 ml) UD INH SCH ×4 (01:01→19:19)
[2018-08-21] MEDS: Enalaprilat 2.5 MG/2 ML IVP SCH ×4 (04:10→21:22)
[2018-08-21 06:00] LABS: HEMOGLOBIN 11.4 g/dL (12.0-16.0); MEAN CELL VOLUME 81.8 fl (81.0-99.0); MEAN CORPUSCULAR HEMOGLOBIN 26.4 pg (27.0-31.0); MEAN CORPUSCULAR HGB CONC 32.2 g/dL (33.0-37.0); RBC 4.32 Mil/uL (3.80-5.20); RED CELL DISTRIBUTION WIDTH 16.8 % (11.5-14.5); WHITE BLOOD COUNT 5.9 K/uL (4.8-10.8)
[2018-08-21 06:25] LABS: BLOOD UREA NITROGEN 24 mg/dl (7-17); GFR NON-AFRICAN AMERICAN > 60
[2018-08-21] MEDS: Insulin Lispro (humaLOG) 100 Units/ml Inj SC SCH ×4 (06:37→21:02)
[2018-08-21] MEDS: Levothyroxine 50 MCG TAB PO SCH (06:40)
--- NOTE | 2018-08-21 07:06 | CP.CCUPN ---
CCU Subjective - Physician Review Subjective (Free Text): Awake, looks / stares at me, smiles, but not vocalizing, resp status stable post extubation 3 days ago. Intermittently mildly agitated, by undressing and sliding around in bed. Tolerated brief period OOB. No other obvious distress, able to take PO pureed diet. Other vitals and I/O's reviewed. No fever spikes since 08/19/18. SBPs 170- 180s, HR 83 in sinus, RR 24, SPo2 99% on NC. ROS: No other pertinent negs or positives on 10+ system review obtainable due to non-verbalization. PMSFH: All other Nursing and physician documentation reviewed to date; no new pertinent info noted relevant to current medical problems. EXAM- HEENT: no icterus, no gaze preference, Pupils 3 mm and reactive NECK: No JVD visible, supple, carotids equal upstroke bilat/no bruit CHEST: mostly clear bilaterally, decreased BS at the bases, no wheezes audible HEART: regular, distant, S1S2, no rubs ABD: soft, no guarding, no tympany; no organomegaly, BS hypoactive. EXT: mild LE edema, no calf tenderness or palpable cords, distal pulses intact and symmetrical. NEURO: moves all extremities spontaneously. SKIN: no rashes, warm and dry LABS: WBC= 5.9 HGB= 11.4 PLTs= 472K Na= 150 K= 3.6 BG=804 HCO3= 27 BUN/Cr= 24/0.8 BS= 308 IMPRESSION / MAJOR PROBLEMS NOW: 1. S/P Acute Resp Failure 2 RL PNA 2. New Onset Seizure Disorder 3. r/o Other Toxic / metabolic Encephalopathy versus ICU Delirium, versus AntiPsychotic Medication withdrawal syndrome, versus Anoxic Encephalopathy 2 initial Seizure event 4. New Hypernatremia today 5. Uncontrolled DM II 6. h/o Chronic Schizoaffective Disorder PLAN: 1. Hypotonic fluids for IV hydration. Watch blood glucose levels, try to keep normoglycemic ( BS approx. 180s)- resume Metformin. 2. Clozapine resumed yesterday with increased Depakote dosing ( to maintain higher therapeutic levels). Lexapro continued. 3. Keppra switched to Vimpat as per Neuro recommendations. 4. Mobile OOB, PT as tolerated. 5. Discontinue Ray if possible. Repeat UA, Urine Cx. 6. Except for Diflucan, off antibiotics. CCU Objective - Physical Exam Nose (External): Positive for: Other Respiratory/Chest: Negative for: Rales
[2018-08-21] MEDS: Fluconazole IV 100mg/50 ml NS 50 ML IVPB SCH (09:00)
[2018-08-21] MEDS: Enoxaparin 40 mg Syringe SC SCH (09:02)
[2018-08-21] MEDS: Pantoprazole 40 mg EC Tab PO SCH (09:03)
[2018-08-21] MEDS: Lacosamide 100 MG Tab PO SCH ×2 (09:07→17:25)
--- NOTE | 2018-08-21 11:01 | CP.PCM.PN ---
<Renetta Kunz - Last Filed: 08/21/18 11:11> Subjective - Date & Time of Evaluation Date of Evaluation: 08/21/18 Time of Evaluation: 08:00 - Subjective Subjective: Pt seen and examined this morning. Eyes open to voice with good focus, non verbal, does not follow commands. Objective - Vital Signs/Intake and Output Vital Signs (last 24 hours): Temp Pulse Resp BP Pulse Ox 98.3 F 86 21 152/78 H 100 08/21/18 08:00 08/21/18 10:00 08/21/18 10:00 08/21/18 10:00 08/21/18 10:00 Intake and Output: 08/21/18 08/21/18 06:59 18:59 Intake Total 0 520 Output Total 1 Balance -1 520 - Medications Medications: Current Medications Acetaminophen (Tylenol 325mg Tab) 650 mg PO Q6 PRN PRN Reason: Fever >100.4 F Last Admin: 08/05/18 05:35 Dose: 650 mg Acetaminophen (Tylenol 650mg/20.3ml Solution Ud) 650 mg PO Q6 PRN PRN Reason: Temperature Last Admin: 08/18/18 11:22 Dose: 650 mg Albuterol/Ipratropium (Duoneb 3 Mg/0.5 Mg (3 Ml) Ud) 3 ml INH RQ6 [facility] Last Admin: 08/21/18 07:33 Dose: 3 ml Amlodipine Besylate (Norvasc) 10 mg PO DAILY [facility] Last Admin: 08/21/18 09:03 Dose: 10 mg Atorvastatin Calcium (Lipitor) 10 mg PO HS [facility] Last Admin: 08/20/18 21:40 Dose: 10 mg Carvedilol (Coreg) 25 mg PO Q12 [facility] Last Admin: 08/21/18 08:59 Dose: 25 mg Clonidine HCl (Catapres) 0.1 mg PO BID [facility] Last Admin: 08/21/18 08:59 Dose: 0.1 mg Clozapine (Clozaril) 25 mg PO DAILY [facility] Dextrose (Dextrose 50% Inj) 0 ml IV STAT PRN; Protocol PRN Reason: Hypoglycemia Protocol Dextrose (Glutose 15) 0 gm PO ONCE PRN; Protocol PRN Reason: Hypoglycemia Protocol Divalproex Sodium (Depakote Er(Once Daily)) 1,250 mg PO HS [facility] Last Admin: 08/20/18 23:27 Dose: Not Given Enalaprilat (Vasotec) 2.5 mg IVP Q6H [facility] Last Admin: 08/21/18 09:04 Dose: 2.5 mg Enoxaparin Sodium (Lovenox) 40 mg SC DAILY [facility]; Protocol Last Admin: 08/21/18 09:02 Dose: 40 mg Escitalopram Oxalate (Lexapro) 10 mg PO HS [facility] Last Admin: 08/20/18 21:36 Dose: Not Given Furosemide (Lasix) 20 mg IVP DAILY [facility] Last Admin: 08/21/18 09:02 Dose: 20 mg Glucagon (Glucagen Diagnostic Kit) 0 mg IM STAT PRN; Protocol PRN Reason: Hypoglycemia Protocol Haloperidol Lactate (Haldol) 5 mg IVP Q8 PRN PRN Reason: Agitation Last Admin: 08/13/18 09:45 Dose: 5 mg Hydralazine HCl (Apresoline) 20 mg IV Q4H PRN PRN Reason: Systolic Blood Pressure Last Admin: 08/20/18 08:16 Dose: 20 mg Hydralazine HCl (Apresoline) 50 mg PO Q6 [facility] Last Admin: 08/21/18 09:38 Dose: 50 mg Fluconazole (Diflucan Iv 100 Mg/50 Ml Ns) 50 mls @ 50 mls/hr IVPB DAILY [facility]; Protocol Last Admin: 08/21/18 09:00 Dose: 50 mls/hr Dextrose (Dextrose 5% In Water 1000 Ml) 1,000 mls @ 75 mls/hr IV .[id number] [facility] Stop: 08/22/18 06:46 Last Admin: 08/21/18 08:00 Dose: 75 mls/hr Ibuprofen (Motrin Tab) 600 mg PO Q6 PRN PRN Reason: Fever >100.4 F Last Admin: 08/19/18 07:23 Dose: 600 mg Insulin Detemir (Levemir) 35 units SC HS [facility] Last Admin: 08/20/18 21:38 Dose: 35 units Insulin Human Lispro (Humalog) 0 units SC ACHS [facility]; Protocol Last Admin: 08/21/18 06:37 Dose: 10 units Lacosamide (Vimpat) 100 mg PO BID [facility] Last Admin: 08/21/18 09:07 Dose: 100 mg Lactulose (Enulose) 20 gm PO Q12 PRN PRN Reason: Constipation Last Admin: 08/19/18 08:40 Dose: 20 gm Levothyroxine Sodium (Synthroid) 50 mcg PO DAILY@0630 [facility] Last Admin: 08/21/18 06:40 Dose: 50 mcg Losartan Potassium (Cozaar) 100 mg PO DAILY [facility] Last Admin: 08/21/18 09:00 Dose: 100 mg Metformin HCl (Glucophage) 850 mg PO BIDWM [facility] Last Admin: 08/21/18 09:01 Dose: 850 mg Multivitamins/Minerals (Therapeutic-M Tab) 1 tab PO DAILY [facility] Last Admin: 08/11/18 09:03 Dose: Not Given Pantoprazole Sodium (Protonix Ec Tab) 40 mg PO DAILY [facility] Last Admin: 08/21/18 09:03 Dose: 40 mg Sitagliptin Phosphate (Januvia) 100 mg PO HS [facility] Last Admin: 08/20/18 21:38 Dose: 100 mg - Labs Labs: 08/21/18 04:51 08/21/18 04:51 PT 12.2 Seconds (9.8-13.1) 08/04/18 00:30 INR 1.1 08/04/18 00:30 APTT 31.5 Seconds (25.6-37.1) 08/02/18 22:20 - Constitutional Appears: Non-toxic, No Acute Distress - Head Exam Head Exam: ATRAUMATIC - Eye Exam Eye Exam: Normal appearance - ENT Exam ENT Exam: Mucous Membranes Moist - Neck Exam Neck Exam: Full ROM - Respiratory Exam Respiratory Exam: Clear to Ausculation Bilateral. absent: Rales, Wheezes - Cardiovascular Exam Cardiovascular Exam: REGULAR RHYTHM, +S1, +S2 - GI/Abdominal Exam GI & Abdominal Exam: Soft, Normal Bowel Sounds. absent: Tenderness - Extremities Exam Extremities Exam: Pedal Edema (trace) - Neurological Exam Neurological Exam: Altered, Awake - Psychiatric Exam Psychiatric exam: Flat Affect. absent: Agitated, Anxious - Skin Skin Exam: Normal Color Assessment and Plan - Assessment and Plan (Free Text) Assessment: 62 yo female from a assisted, with hx of DM II, schizophrenia and HTN; initially admitted for sepsis and pneumonia. Initial labs were significant for leukocytosis with bandemia; CXR showed atelectasis vs infiltrate and pt was started on vancomycin, zosyn and zithromax IV. During the admission, the pt was found to be bradycardic and became unresponsive. A Code Blue was called for suspected Pulseless Electrical Activity; compressions done ,was achieved after 3 rounds of epinephrine. She was then transferred to ICU. When weaned off sedation, mental status changes appreciated per family when compared to her baseline. 1. Altered Mental Status -improving but not at baseline as per family -empirically treated with IV Acyclovir; Lumbar puncture unremarkable and Cx negative -MRI of Brain - no signs of Stroke nor Encephalitis -likely toxic encephalopathy as per neurology -AMS may be due to Schitzophrenia as antispychotic medication was on hold. Will attempt to restart Clozapine at low dose with gradual increase. Psych on board. -C/W Depakote for Seizures -C/W Risperdal and Lexapro. Haldol prn -Procalcitonin 0.05 -LDH: 765 2. Electrolyte imbalance -Hypokalemia- resolved, 3.6 today, post repletion -Hypernatremia- D5 started -3.6 today, resolved -f/u AM BMP 3. Hypertension -uncontrolled but improved today, 150's systolic -cont Lasix, Amlodipine, Coreg and Losartan -Hydralazine 100mg QID -clonopine 0.1mg Q12H started -c/w monitoring BPs 4. DM -ISS, Levemir 35 -Januvia -Metformin started today 5. s/p Cardio-Respiratory Arrest -s/p Code Blue (received 3 doses of epinephrine); unclear if real cardiac arrest -extubated, tolerating well 6. Localization-related (focal) (partial) symptomatic epilepsy -as per neuro due to pts infection and antipsychotic lowered seizure threshold; appear to have resolved now -cont Keppra 1000 mg Q12 -Clozapine discontinued 7. Sepsis 2/2 to Pneumonia, likely bacterial -resolved 8. Fever -resolved 9. Anasarca -improving -IV lasix given -Renal function stable 10.Hypothyrodism -Chronic, uncontrolled -Levothyroxine 50mcg daily 11. IDDM2 -Chronic -oral meds held -Levemir 35 units QHS -Insulin coverage scale and hypoglycemia protocol -Hypoglycemia protocol 12. Schizophrenia -Chronic -Home meds held for now -cont Depakote -Psych consulted- rec Lexapro and Risperdal 13. DVT prophylaxis -Lovenox 40mg SC QD -SCDs 13. Code Status -full code <Kera Naylor - Last Filed: 08/22/18 10:04> Objective - Vital Signs/Intake and Output Vital Signs (last 24 hours): Temp Pulse Resp BP Pulse Ox 97.8 F 74 24 160/72 H 98 08/22/18 08:00 08/22/18 08:52 08/22/18 08:00 08/22/18 08:52 08/22/18 08:00 Intake and Output: 08/22/18 08/22/18 06:59 18:59 Intake Total 1120 120 Output Total 300 Balance 820 120 - Medications Medications: Current Medications Acetaminophen (Tylenol 325mg Tab) 650 mg PO Q6 PRN PRN Reason: Fever >100.4 F Last Admin: 08/05/18 05:35 Dose: 650 mg Acetaminophen (Tylenol 650mg/20.3ml Solution Ud) 650 mg PO Q6 PRN PRN Reason: Temperature Last Admin: 08/18/18 11:22 Dose: 650 mg Albuterol/Ipratropium (Duoneb 3 Mg/0.5 Mg (3 Ml) Ud) 3 ml INH RQ6 [facility] Last Admin: 08/22/18 07:39 Dose: 3 ml Amlodipine Besylate (Norvasc) 10 mg PO DAILY [facility] Last Admin: 08/22/18 08:52 Dose: 10 mg Atorvastatin Calcium (Lipitor) 10 mg PO HS [facility] Last Admin: 08/21/18 21:00 Dose: 10 mg Carvedilol (Coreg) 25 mg PO Q12 [facility] Last Admin: 08/22/18 08:48 Dose: 25 mg Clozapine (Clozaril) 25 mg PO DAILY [facility] Last Admin: 08/22/18 08:48 Dose: 25 mg Dextrose (Dextrose 50% Inj) 0 ml IV STAT PRN; Protocol PRN Reason: Hypoglycemia Protocol Dextrose (Glutose 15) 0 gm PO ONCE PRN; Protocol PRN Reason: Hypoglycemia Protocol Divalproex Sodium (Depakote Er(Once Daily)) 2,000 mg PO HS [facility] Last Admin: 08/21/18 21:08 Dose: 2,000 mg Enalaprilat (Vasotec) 2.5 mg IVP Q6H [facility] Last Admin: 08/22/18 08:52 Dose: 2.5 mg Enoxaparin Sodium (Lovenox) 40 mg SC DAILY [facility]; Protocol Last Admin: 08/22/18 08:51 Dose: 40 mg Escitalopram Oxalate (Lexapro) 10 mg PO HS [facility] Last Admin: 08/21/18 21:00 Dose: 10 mg Furosemide (Lasix) 20 mg IVP DAILY [facility] Last Admin: 08/22/18 08:51 Dose: 20 mg Glucagon (Glucagen Diagnostic Kit) 0 mg IM STAT PRN; Protocol PRN Reason: Hypoglycemia Protocol Haloperidol Lactate (Haldol) 5 mg IVP Q8 PRN PRN Reason: Agitation Last Admin: 08/13/18 09:45 Dose: 5 mg Fluconazole (Diflucan Iv 100 Mg/50 Ml Ns) 50 mls @ 50 mls/hr IVPB DAILY [facility]; Protocol Last Admin: 08/21/18 09:00 Dose: 50 mls/hr Ibuprofen (Motrin Tab) 600 mg PO Q6 PRN PRN Reason: Fever >100.4 F Last Admin: 08/19/18 07:23 Dose: 600 mg Insulin Detemir (Levemir) 35 units SC [facility] Last Admin: 08/21/18 21:02 Dose: 35 units Insulin Human Lispro (Humalog) 0 units SC [facility]; Protocol Last Admin: 08/21/18 21:02 Dose: Not Given Lacosamide (Vimpat) 100 mg PO BID [facility] Last Admin: 08/21/18 17:25 Dose: 100 mg Lactulose (Enulose) 20 gm PO Q12 PRN PRN Reason: Constipation Last Admin: 08/19/18 08:40 Dose: 20 gm Levothyroxine Sodium (Synthroid) 50 mcg PO DAILY@0630 [facility] Last Admin: 08/22/18 05:56 Dose: 50 mcg Losartan Potassium (Cozaar) 100 mg PO DAILY [facility] Last Admin: 08/22/18 08:49 Dose: 100 mg Metformin HCl (Glucophage) 850 mg PO BIDWM [facility] Last Admin: 08/22/18 08:50 Dose: 850 mg Multivitamins/Minerals (Therapeutic-M Tab) 1 tab PO DAILY [facility] Last Admin: 08/11/18 09:03 Dose: Not Given Pantoprazole Sodium (Protonix Ec Tab) 40 mg PO DAILY [facility] Last Admin: 08/22/18 08:52 Dose: 40 mg Sitagliptin Phosphate (Januvia) 100 mg PO [facility] Last Admin: 08/21/18 21:00 Dose: 100 mg - Labs Labs: 08/22/18 05:20 08/22/18 05:20 PT 12.2 Seconds (9.8-13.1) 08/04/18 00:30 INR 1.1 08/04/18 00:30 APTT 31.5 Seconds (25.6-37.1) 08/02/18 22:20 Attending/Attestation - Attestation I have personally seen and examined this patient.: Yes I have fully participated in the care of the patient.: Yes I have reviewed all pertinent clinical information, including history, physical exam and plan: Yes Notes (Text): 08/22/18 10:04 Seen, examined, and discussed with resident. Agree with findings and plan as above. Pt continues to be catatonic with episodes of awakening. Is able to eat when fed, and drinks when given.
--- NOTE | 2018-08-21 14:42 | CP.PCM.PN ---
Subjective - Date & Time of Evaluation Date of Evaluation: 08/21/18 Time of Evaluation: 08:00 - Subjective Subjective: IV RX IN PROGRESS OFF ANTIBIOTICS Objective - Vital Signs/Intake and Output Vital Signs (last 24 hours): Temp Pulse Resp BP Pulse Ox 98.3 F 74 28 H 137/65 100 08/21/18 08:00 08/21/18 14:00 08/21/18 14:00 08/21/18 14:00 08/21/18 14:00 Intake and Output: 08/21/18 08/21/18 06:59 18:59 Intake Total 0 820 Output Total 1 Balance -1 820 - Medications Medications: Current Medications Acetaminophen (Tylenol 325mg Tab) 650 mg PO Q6 PRN PRN Reason: Fever >100.4 F Last Admin: 08/05/18 05:35 Dose: 650 mg Acetaminophen (Tylenol 650mg/20.3ml Solution Ud) 650 mg PO Q6 PRN PRN Reason: Temperature Last Admin: 08/18/18 11:22 Dose: 650 mg Albuterol/Ipratropium (Duoneb 3 Mg/0.5 Mg (3 Ml) Ud) 3 ml INH RQ6 [facility] Last Admin: 08/21/18 13:37 Dose: Not Given Amlodipine Besylate (Norvasc) 10 mg PO DAILY [facility] Last Admin: 08/21/18 09:03 Dose: 10 mg Atorvastatin Calcium (Lipitor) 10 mg PO HS [facility] Last Admin: 08/20/18 21:40 Dose: 10 mg Carvedilol (Coreg) 25 mg PO Q12 [facility] Last Admin: 08/21/18 08:59 Dose: 25 mg Clonidine HCl (Catapres) 0.1 mg PO BID [facility] Last Admin: 08/21/18 08:59 Dose: 0.1 mg Clozapine (Clozaril) 25 mg PO DAILY [facility] Dextrose (Dextrose 50% Inj) 0 ml IV STAT PRN; Protocol PRN Reason: Hypoglycemia Protocol Dextrose (Glutose 15) 0 gm PO ONCE PRN; Protocol PRN Reason: Hypoglycemia Protocol Divalproex Sodium (Depakote Er(Once Daily)) 1,250 mg PO HS [facility] Last Admin: 08/20/18 23:27 Dose: Not Given Enalaprilat (Vasotec) 2.5 mg IVP Q6H [facility] Last Admin: 08/21/18 09:04 Dose: 2.5 mg Enoxaparin Sodium (Lovenox) 40 mg SC DAILY [facility]; Protocol Last Admin: 08/21/18 09:02 Dose: 40 mg Escitalopram Oxalate (Lexapro) 10 mg PO HS [facility] Last Admin: 08/20/18 21:36 Dose: Not Given Furosemide (Lasix) 20 mg IVP DAILY [facility] Last Admin: 08/21/18 09:02 Dose: 20 mg Glucagon (Glucagen Diagnostic Kit) 0 mg IM STAT PRN; Protocol PRN Reason: Hypoglycemia Protocol Haloperidol Lactate (Haldol) 5 mg IVP Q8 PRN PRN Reason: Agitation Last Admin: 08/13/18 09:45 Dose: 5 mg Hydralazine HCl (Apresoline) 20 mg IV Q4H PRN PRN Reason: Systolic Blood Pressure Last Admin: 08/20/18 08:16 Dose: 20 mg Hydralazine HCl (Apresoline) 50 mg PO Q6 [facility] Last Admin: 08/21/18 09:38 Dose: 50 mg Fluconazole (Diflucan Iv 100 Mg/50 Ml Ns) 50 mls @ 50 mls/hr IVPB DAILY [facility]; Protocol Last Admin: 08/21/18 09:00 Dose: 50 mls/hr Dextrose (Dextrose 5% In Water 1000 Ml) 1,000 mls @ 75 mls/hr IV .[id number] [facility] Stop: 08/22/18 06:46 Last Admin: 08/21/18 08:00 Dose: 75 mls/hr Ibuprofen (Motrin Tab) 600 mg PO Q6 PRN PRN Reason: Fever >100.4 F Last Admin: 08/19/18 07:23 Dose: 600 mg Insulin Detemir (Levemir) 35 units SC [facility] Last Admin: 08/20/18 21:38 Dose: 35 units Insulin Human Lispro (Humalog) 0 units SC [facility]; Protocol Last Admin: 08/21/18 11:54 Dose: 6 units Lacosamide (Vimpat) 100 mg PO BID [facility] Last Admin: 08/21/18 09:07 Dose: 100 mg Lactulose (Enulose) 20 gm PO Q12 PRN PRN Reason: Constipation Last Admin: 08/19/18 08:40 Dose: 20 gm Levothyroxine Sodium (Synthroid) 50 mcg PO DAILY@0630 [facility] Last Admin: 08/21/18 06:40 Dose: 50 mcg Losartan Potassium (Cozaar) 100 mg PO DAILY [facility] Last Admin: 08/21/18 09:00 Dose: 100 mg Metformin HCl (Glucophage) 850 mg PO BIDWM [facility] Last Admin: 08/21/18 09:01 Dose: 850 mg Multivitamins/Minerals (Therapeutic-M Tab) 1 tab PO DAILY [facility] Last Admin: 08/11/18 09:03 Dose: Not Given Pantoprazole Sodium (Protonix Ec Tab) 40 mg PO DAILY [facility] Last Admin: 08/21/18 09:03 Dose: 40 mg Sitagliptin Phosphate (Januvia) 100 mg PO HS [facility] Last Admin: 08/20/18 21:38 Dose: 100 mg - Labs Labs: 08/21/18 04:51 08/21/18 04:51 PT 12.2 Seconds (9.8-13.1) 08/04/18 00:30 INR 1.1 08/04/18 00:30 APTT 31.5 Seconds (25.6-37.1) 08/02/18 22:20 - Constitutional Appears: Non-toxic, Chronically Ill - Head Exam Head Exam: NORMOCEPHALIC - Eye Exam Eye Exam: absent: Scleral icterus - ENT Exam ENT Exam: Mucous Membranes Dry - Neck Exam Neck Exam: absent: Thyromegaly - Respiratory Exam Respiratory Exam: Decreased Breath Sounds, Clear to Ausculation Bilateral, Prolonged Expiratory Phase - Cardiovascular Exam Cardiovascular Exam: REGULAR RHYTHM - GI/Abdominal Exam GI & Abdominal Exam: Distended, Soft - Rectal Exam Rectal Exam: Deferred - Exam Exam: NORMAL INSPECTION Assessment and Plan (1) Pneumonia Status: Acute (2) Severe sepsis Status: Acute - Assessment and Plan (Free Text) Assessment: HOLD IV ANTIBIOTICS
[2018-08-21] MEDS: Insulin Detemir 100 Units/ml Inj SC SCH (21:02)
[2018-08-21] MEDS: Divalproex 500 mg ER (ONCE DAILY formulation) PO SCH (21:08)
[2018-08-22] MEDS: Albuterol-Ipratrop 3 mg / 0.5 (3 ml) UD INH SCH ×4 (02:20→19:20)
[2018-08-22] MEDS: Enalaprilat 2.5 MG/2 ML IVP SCH ×2 (03:58→08:52)
[2018-08-22] MEDS: Levothyroxine 50 MCG TAB PO SCH (05:56)
[2018-08-22 06:10] LABS: HEMOGLOBIN 10.9 g/dL (12.0-16.0); MEAN CELL VOLUME 81.9 fl (81.0-99.0); MEAN CORPUSCULAR HEMOGLOBIN 26.1 pg (27.0-31.0); MEAN CORPUSCULAR HGB CONC 31.9 g/dL (33.0-37.0); RBC 4.19 Mil/uL (3.80-5.20); RED CELL DISTRIBUTION WIDTH 16.7 % (11.5-14.5); WHITE BLOOD COUNT 7.3 K/uL (4.8-10.8)
[2018-08-22 06:25] LABS: CALCIUM 9.9 mg/dL (8.4-10.2)
[2018-08-22] MEDS: Insulin Lispro (humaLOG) 100 Units/ml Inj SC SCH ×4 (07:00→21:11)
[2018-08-22] MEDS: Enoxaparin 40 mg Syringe SC SCH (08:51)
[2018-08-22] MEDS: Pantoprazole 40 mg EC Tab PO SCH (08:52)
--- NOTE | 2018-08-22 10:07 | CP.PCM.PN ---
<Renetta Kunz - Last Filed: 08/22/18 15:33> Subjective - Date & Time of Evaluation Date of Evaluation: 08/22/18 Time of Evaluation: 08:20 - Subjective Subjective: Pt seen and examined this morning. Opens eyes to voice, seems more alert today, non verbal. Objective - Vital Signs/Intake and Output Vital Signs (last 24 hours): Temp Pulse Resp BP Pulse Ox 97.8 F 74 24 160/72 H 98 08/22/18 08:00 08/22/18 08:52 08/22/18 08:00 08/22/18 08:52 08/22/18 08:00 Intake and Output: 08/22/18 08/22/18 06:59 18:59 Intake Total 1120 120 Output Total 300 Balance 820 120 - Medications Medications: Current Medications Acetaminophen (Tylenol 325mg Tab) 650 mg PO Q6 PRN PRN Reason: Fever >100.4 F Last Admin: 08/05/18 05:35 Dose: 650 mg Acetaminophen (Tylenol 650mg/20.3ml Solution Ud) 650 mg PO Q6 PRN PRN Reason: Temperature Last Admin: 08/18/18 11:22 Dose: 650 mg Albuterol/Ipratropium (Duoneb 3 Mg/0.5 Mg (3 Ml) Ud) 3 ml INH RQ6 [facility] Last Admin: 08/22/18 07:39 Dose: 3 ml Amlodipine Besylate (Norvasc) 10 mg PO DAILY [facility] Last Admin: 08/22/18 08:52 Dose: 10 mg Atorvastatin Calcium (Lipitor) 10 mg PO HS [facility] Last Admin: 08/21/18 21:00 Dose: 10 mg Carvedilol (Coreg) 25 mg PO Q12 [facility] Last Admin: 08/22/18 08:48 Dose: 25 mg Clozapine (Clozaril) 25 mg PO DAILY [facility] Last Admin: 08/22/18 08:48 Dose: 25 mg Dextrose (Dextrose 50% Inj) 0 ml IV STAT PRN; Protocol PRN Reason: Hypoglycemia Protocol Dextrose (Glutose 15) 0 gm PO ONCE PRN; Protocol PRN Reason: Hypoglycemia Protocol Divalproex Sodium (Depakote Er(Once Daily)) 2,000 mg PO HS [facility] Last Admin: 08/21/18 21:08 Dose: 2,000 mg Enalaprilat (Vasotec) 2.5 mg IVP Q6H [facility] Last Admin: 08/22/18 08:52 Dose: 2.5 mg Enoxaparin Sodium (Lovenox) 40 mg SC DAILY [facility]; Protocol Last Admin: 08/22/18 08:51 Dose: 40 mg Escitalopram Oxalate (Lexapro) 10 mg PO HS [facility] Last Admin: 08/21/18 21:00 Dose: 10 mg Furosemide (Lasix) 20 mg IVP DAILY [facility] Last Admin: 08/22/18 08:51 Dose: 20 mg Glucagon (Glucagen Diagnostic Kit) 0 mg IM STAT PRN; Protocol PRN Reason: Hypoglycemia Protocol Haloperidol Lactate (Haldol) 5 mg IVP Q8 PRN PRN Reason: Agitation Last Admin: 08/13/18 09:45 Dose: 5 mg Fluconazole (Diflucan Iv 100 Mg/50 Ml Ns) 50 mls @ 50 mls/hr IVPB DAILY [facility]; Protocol Last Admin: 08/21/18 09:00 Dose: 50 mls/hr Ibuprofen (Motrin Tab) 600 mg PO Q6 PRN PRN Reason: Fever >100.4 F Last Admin: 08/19/18 07:23 Dose: 600 mg Insulin Detemir (Levemir) 35 units SC [facility] Last Admin: 08/21/18 21:02 Dose: 35 units Insulin Human Lispro (Humalog) 0 units SC [facility]; Protocol Last Admin: 08/21/18 21:02 Dose: Not Given Lacosamide (Vimpat) 100 mg PO BID [facility] Last Admin: 08/21/18 17:25 Dose: 100 mg Lactulose (Enulose) 20 gm PO Q12 PRN PRN Reason: Constipation Last Admin: 08/19/18 08:40 Dose: 20 gm Levothyroxine Sodium (Synthroid) 50 mcg PO DAILY@0630 [facility] Last Admin: 08/22/18 05:56 Dose: 50 mcg Losartan Potassium (Cozaar) 100 mg PO DAILY [facility] Last Admin: 08/22/18 08:49 Dose: 100 mg Metformin HCl (Glucophage) 850 mg PO BIDWM [facility] Last Admin: 08/22/18 08:50 Dose: 850 mg Multivitamins/Minerals (Therapeutic-M Tab) 1 tab PO DAILY [facility] Last Admin: 08/11/18 09:03 Dose: Not Given Pantoprazole Sodium (Protonix Ec Tab) 40 mg PO DAILY [facility] Last Admin: 08/22/18 08:52 Dose: 40 mg Sitagliptin Phosphate (Januvia) 100 mg PO HS [facility] Last Admin: 08/21/18 21:00 Dose: 100 mg - Labs Labs: 08/22/18 05:20 08/22/18 05:20 PT 12.2 Seconds (9.8-13.1) 08/04/18 00:30 INR 1.1 08/04/18 00:30 APTT 31.5 Seconds (25.6-37.1) 08/02/18 22:20 - Constitutional Appears: Well, No Acute Distress - Head Exam Head Exam: NORMAL INSPECTION - Eye Exam Eye Exam: Normal appearance - ENT Exam ENT Exam: Mucous Membranes Moist - Respiratory Exam Respiratory Exam: Clear to Ausculation Bilateral - Cardiovascular Exam Cardiovascular Exam: REGULAR RHYTHM, +S1, +S2 - GI/Abdominal Exam GI & Abdominal Exam: Soft. absent: Tenderness - Extremities Exam Extremities Exam: absent: Pedal Edema - Neurological Exam Neurological Exam: Alert, Awake. absent: Oriented x3 - Psychiatric Exam Psychiatric exam: Flat Affect. absent: Agitated, Anxious - Skin Skin Exam: Normal Color Assessment and Plan - Assessment and Plan (Free Text) Assessment: Assessment: 62 yo female from a nursing home, with hx of DM II, schizophrenia and HTN; initially admitted for sepsis and pneumonia. Initial labs were significant for leukocytosis with bandemia; CXR showed atelectasis vs infiltrate and pt was started on vancomycin, zosyn and zithromax IV. During the admission, the pt was found to be bradycardic and became unresponsive. A Code Blue was called for suspected Pulseless Electrical Activity; compressions done ,was achieved after 3 rounds of epinephrine. She was then transferred to ICU. When weaned off sedation, mental status changes appreciated per family when compared to her baseline. Discussion to be held with daughter (next of kin) to establish power of energy attorney. 1. Altered Mental Status -improving but not at baseline as per family -empirically treated with IV Acyclovir; Lumbar puncture unremarkable and Cx negative -MRI of Brain - no signs of Stroke nor Encephalitis -likely toxic encephalopathy as per neurology -AMS may be due to Schitzophrenia as antispychotic medication was on hold. Started on Clozapine at low dose with gradual increase and close monitoring of WBC count. Psych on board. -C/W Depakote for Seizures -C/W Risperdal and Lexapro. Haldol prn -Procalcitonin 0.05 -LDH: 765 2. Electrolyte imbalance -Hypokalemia- resolved, 3.1 today,repleted this morning -Hypernatremia-improved. 1/2NS started -3.6 today, resolved -f/u AM BMP 3. JOSHUA -Crea increased to 1.4 this morning -May be pre-renal; -1/2 NS started at 125cc/hr 4. Hypertension -uncontrolled but improved today, 150's systolic -cont Lasix, Amlodipine, Coreg and Losartan -Hydralazine 100mg QID -clonopine 0.1mg Q12H started -c/w monitoring BPs 5. DM -ISS, Levemir 35 -Januvia -Metformin started today 6. s/p Cardio-Respiratory Arrest -s/p Code Blue (received 3 doses of epinephrine); unclear if real cardiac arrest -extubated, tolerating well 7. Localization-related (focal) (partial) symptomatic epilepsy -as per neuro due to pts infection and antipsychotic lowered seizure threshold; appear to have resolved now -cont Keppra 1000 mg Q12 -Clozapine discontinued 8. Sepsis 2/2 to Pneumonia, likely bacterial -resolved 9. Anasarca -improving -IV lasix given 10.Hypothyrodism -Chronic, uncontrolled -Levothyroxine 50mcg daily 11. IDDM2 -Chronic -oral meds held -Levemir 35 units QHS -Insulin coverage scale and hypoglycemia protocol -Hypoglycemia protocol 12. Schizophrenia -Chronic -Home meds held for now -cont Depakote -Psych consulted- rec Lexapro and Risperdal 13. DVT prophylaxis -Lovenox 40mg SC QD -SCDs 13. Code Status -full code <Kera Naylor - Last Filed: 08/25/18 17:21> Objective - Vital Signs/Intake and Output Vital Signs (last 24 hours): Temp Pulse Resp BP Pulse Ox 99 F 68 18 117/59 L 98 08/25/18 16:33 08/25/18 16:33 08/25/18 16:33 08/25/18 16:33 08/25/18 16:33 Intake and Output: 08/25/18 08/25/18 06:59 18:59 Intake Total 550 Balance 550 - Medications Medications: Current Medications Acetaminophen (Tylenol 325mg Tab) 650 mg PO Q6 PRN PRN Reason: Fever >100.4 F Last Admin: 08/05/18 05:35 Dose: 650 mg Acetaminophen (Tylenol 650mg/20.3ml Solution Ud) 650 mg PO Q6 PRN PRN Reason: Temperature Last Admin: 08/18/18 11:22 Dose: 650 mg Albuterol/Ipratropium (Duoneb 3 Mg/0.5 Mg (3 Ml) Ud) 3 ml INH RQ6 PRN PRN Reason: Shortness of Breath Last Admin: 08/24/18 00:07 Dose: 3 ml Amlodipine Besylate (Norvasc) 10 mg PO DAILY [facility] Last Admin: 08/25/18 10:25 Dose: 10 mg Atorvastatin Calcium (Lipitor) 10 mg PO HS [facility] Last Admin: 08/24/18 21:22 Dose: 10 mg Carvedilol (Coreg) 25 mg PO Q12 [facility] Last Admin: 08/25/18 10:22 Dose: 25 mg Clozapine (Clozaril) 25 mg PO HS [facility] Last Admin: 08/24/18 21:23 Dose: 25 mg Dextrose (Dextrose 50% Inj) 0 ml IV STAT PRN; Protocol PRN Reason: Hypoglycemia Protocol Last Admin: 08/25/18 16:44 Dose: 50 ml Dextrose (Glutose 15) 0 gm PO ONCE PRN; Protocol PRN Reason: Hypoglycemia Protocol Divalproex Sodium (Depakote Er(Once Daily)) 2,000 mg PO HS [facility] Last Admin: 08/24/18 21:29 Dose: 2,000 mg Enoxaparin Sodium (Lovenox) 40 mg SC DAILY [facility]; Protocol Last Admin: 08/25/18 10:24 Dose: 40 mg Escitalopram Oxalate (Lexapro) 10 mg PO HS [facility] Last Admin: 08/24/18 21:22 Dose: 10 mg Furosemide (Lasix) 20 mg IVP DAILY [facility] Last Admin: 08/25/18 10:25 Dose: 20 mg Glucagon (Glucagen Diagnostic Kit) 0 mg IM STAT PRN; Protocol PRN Reason: Hypoglycemia Protocol Lactated Ringer's (Lactated Ringer's) 1,000 mls @ 75 mls/hr IV .[id number] [facility] Last Admin: 08/25/18 06:24 Dose: Not Given Ibuprofen (Motrin Tab) 600 mg PO Q6 PRN PRN Reason: Fever >100.4 F Last Admin: 08/19/18 07:23 Dose: 600 mg Insulin Detemir (Levemir) 10 units SC HS [facility] Insulin Human Lispro (Humalog) 0 units SC ACHS [facility]; Protocol Last Admin: 08/25/18 16:45 Dose: Not Given Lacosamide (Vimpat) 100 mg PO Q12 [facility] Lactulose (Enulose) 20 gm PO Q12 PRN PRN Reason: Constipation Last Admin: 08/19/18 08:40 Dose: 20 gm Levothyroxine Sodium (Synthroid) 50 mcg PO DAILY@0630 [facility] Last Admin: 08/25/18 06:24 Dose: 50 mcg Losartan Potassium (Cozaar) 50 mg PO DAILY [facility] Last Admin: 08/25/18 10:23 Dose: 50 mg Multivitamins/Minerals (Therapeutic-M Tab) 1 tab PO DAILY [facility] Last Admin: 08/25/18 10:26 Dose: 1 tab Pantoprazole Sodium (Protonix Ec Tab) 40 mg PO DAILY [facility] Last Admin: 08/25/18 10:26 Dose: 40 mg - Labs Labs: 08/24/18 04:30 08/25/18 05:30 PT 12.2 Seconds (9.8-13.1) 08/04/18 00:30 INR 1.1 08/04/18 00:30 APTT 31.5 Seconds (25.6-37.1) 08/02/18 22:20 Attending/Attestation - Attestation I have personally seen and examined this patient.: Yes I have fully participated in the care of the patient.: Yes I have reviewed all pertinent clinical information, including history, physical exam and plan: Yes Notes (Text): 08/25/18 17:21 Seen examined and discussed with resident. Agree with findings and plan as above.
[2018-08-22] MEDS ORDERED: Potassium Chloride 20 mEq/15 ml LIQ UD PO ONE (10:27)
[2018-08-22] MEDS ORDERED: Sodium Chloride 0.45% 1,000 ML IV SCH (10:30)
--- NOTE | 2018-08-22 11:11 | CP.CCUPN ---
CCU Subjective - Physician Review Events Since Last Encounter (Free Text): 08/22/18 10:59 on multiple psych and anti seizure meds, now very sleepy and BP is low and HR in 50s. Sodium is better. K is low, being repleted. CCU Objective - Vital Signs / Intake & Output Vital Signs (Last 4 hours): Vital Signs Temp Pulse Resp BP Pulse Ox 08/22/18 10:53 58 L 99/52 L 08/22/18 08:52 74 160/72 H 08/22/18 08:51 160/72 H 08/22/18 08:49 73 160/72 H 08/22/18 08:48 75 160/72 H 08/22/18 08:00 97.8 F 75 24 161/86 H 98 Intake and Output (Last 8hrs): Intake & Output 08/21/18 08/22/18 08/22/18 22:59 06:59 14:59 Intake Total 800 720 120 Output Total 300 300 Balance 500 420 120 Intake: IV 600 600 Oral 200 120 120 Output: Urine 300 300 Urine, Voided 300 300 Other: # Bowel Movements 1 1 - Physical Exam Narrative Physical Exam (Free Text): 08/22/18 11:00 P/E Neck: No JVD Lungs: No ronchi, crackles Abdomen: soft, non-tender Ext: No edema heart: No gallop Head: Positive for: Normocephalic Pupils: Positive for: Sluggish Extroacular Muscles: Positive for: EOMI Conjunctiva: Positive for: Normal Ears: Positive for: Normal Mouth: Positive for: Moist Mucous Membranes (ETT tube in place, yellow secretions, OG tube) Nose (External): Positive for: Other Neck: Positive for: Normal Range of Motion Respiratory/Chest: Negative for: Rales Cardiovascular: Positive for: Regular Rate and Rhythm, Normal S1, S2. Negative for: Murmurs Abdomen: Positive for: Distention, Normal Bowel Sounds. Negative for: Tenderness Upper Extremity: Positive for: Edema (trace pitting in upper extremities bl), NORMAL PULSES, Capillary Refill < 2s Lower Extremity: Positive for: NORMAL PULSES, Capillary Refill < 2 s. Negative for: Edema Neurological: Positive for: Other (Eyes open spotnaneously, non verbal, withdraws from pain) Skin: Positive for: Warm, Dry, Rashes Psychiatric: Positive for: Alert (Improved). Negative for: Oriented x 3, Agitated - Medications Active Medications: Active Medications Generic Name Dose Route Start Last Admin Trade Name Freq PRN Reason Stop Dose Admin Acetaminophen 650 mg 08/03/18 03:33 08/05/18 05:35 Tylenol 325mg Tab PO 650 mg Q6 PRN Administration Fever >100.4 F Acetaminophen 650 mg 08/15/18 22:15 08/18/18 11:22 Tylenol 650mg/20.3ml Solution Ud PO 650 mg Q6 PRN Administration Temperature Albuterol/Ipratropium 3 ml 08/16/18 14:00 08/22/18 07:39 Duoneb 3 Mg/0.5 Mg (3 Ml) Ud INH 3 ml RQ6 [facility] Administration Amlodipine Besylate 10 mg 08/03/18 09:00 08/22/18 08:52 Norvasc PO 10 mg DAILY [facility] Administration Atorvastatin Calcium 10 mg 08/03/18 22:00 08/21/18 21:00 Lipitor PO 10 mg HS [facility] Administration Carvedilol 25 mg 08/15/18 21:00 08/22/18 08:48 Coreg PO 25 mg Q12 L[facility]LIE Administration Clozapine 25 mg 08/22/18 09:00 08/22/18 08:48 Clozaril PO 25 mg DAILY [facility] Administration Dextrose 0 ml 08/03/18 03:35 Dextrose 50% Inj IV STAT PRN Hypoglycemia Protocol Protocol Dextrose 0 gm 08/03/18 03:35 Glutose 15 PO ONCE PRN Hypoglycemia Protocol Protocol Divalproex Sodium 2,000 mg 08/21/18 22:00 08/21/18 21:08 Depakote Er(Once Daily) PO 2,000 mg HS [facility] Administration Enoxaparin Sodium 40 mg 08/09/18 09:00 08/22/18 08:51 Lovenox SC 40 mg DAILY [facility] Administration Protocol Escitalopram Oxalate 10 mg 08/03/18 22:00 08/21/18 21:00 Lexapro PO 10 mg HS [facility] Administration Furosemide 20 mg 08/20/18 13:45 08/22/18 08:51 Lasix IVP 20 mg DAILY [facility] Administration Glucagon 0 mg 08/03/18 03:35 Glucagen Diagnostic Kit IM STAT PRN Hypoglycemia Protocol Protocol Haloperidol Lactate 5 mg 08/12/18 13:03 08/13/18 09:45 Haldol IVP 5 mg Q8 PRN Administration Agitation Fluconazole 50 mls @ 50 mls/hr 08/17/18 14:00 08/21/18 09:00 Diflucan Iv 100 Mg/50 Ml Ns IVPB 50 mls/hr DAILY [facility] Administration Protocol Potassium Chloride 100 mls @ 50 mls/hr 08/22/18 12:00 Potassium Chloride 20 Meq/100 Ml IVPB 08/22/18 15:59 Q2 [facility] Sodium Chloride 1,000 mls @ 125 mls/hr 08/22/18 10:30 Sodium Chloride 0.45% IV 08/23/18 10:30 .Q8H [facility] Ibuprofen 600 mg 08/03/18 13:30 08/19/18 07:23 Motrin Tab PO 600 mg Q6 PRN Administration Fever >100.4 F Insulin Detemir 35 units 08/17/18 22:00 08/21/18 21:02 Levemir SC 35 units HS [facility] Administration Insulin Human Lispro 0 units 08/21/18 07:30 08/21/18 21:02 Humalog SC Not Given ACHS [facility]IE Protocol Lacosamide 100 mg 08/18/18 19:15 08/21/18 17:25 Vimpat PO 100 mg BID [facility] Administration Lactulose 20 gm 08/08/18 17:16 08/19/18 08:40 Enulose PO 20 gm Q12 PRN Administration Constipation Levothyroxine Sodium 50 mcg 08/04/18 06:30 08/22/18 05:56 Synthroid PO 50 mcg DAILY@0630 [facility] Administration Metformin HCl 850 mg 08/21/18 08:00 08/22/18 08:50 Glucophage PO 850 mg BIDWM [facility] Administration Multivitamins/Minerals 1 tab 08/03/18 09:00 08/11/18 09:03 Therapeutic-M Tab PO Not Given DAILY [facility] Pantoprazole Sodium 40 mg 08/21/18 09:00 08/22/18 08:52 Protonix Ec Tab PO 40 mg DAILY [facility] Administration Sitagliptin Phosphate 100 mg 08/03/18 22:00 08/21/18 21:00 Januvia PO 100 mg HS [facility] Administration - Patient Studies Lab Studies: Lab Studies 08/22/18 08/22/18 08/22/18 Range/Units 05:54 05:20 05:20 WBC (4.8-10.8) K/uL RBC (3.80-5.20) Mil/uL Hgb (12.0-16.0) g/dL Hct (34.0-47.0) % MCV (81.0-99.0) fl MCH (27.0-31.0) pg MCHC (33.0-37.0) g/dL RDW (11.5-14.5) % Plt Count (130-400) K/uL Sodium 146 (132-148) mmol/l Potassium 3.1 L (3.6-5.0) MMOL/L Chloride 111 H (98-107) mmol/L Carbon Dioxide 24 (22-30) mmol/L Anion Gap 14 (10-20) BUN 43 H (7-17) mg/dl Creatinine 1.4 H (0.7-1.2) mg/dl Est GFR ( Amer) 46 Est GFR (Non-Af Amer) 38 POC Glucose (mg/dL) 196 H (65-110) mg/dL Random Glucose 204 H (65-105) mg/dL Calcium 9.9 (8.4-10.2) mg/dL Valproic Acid 45.2 L (50.0-100.0) ug/mL 08/22/18 08/21/18 08/21/18 Range/Units 05:20 20:58 16:42 WBC 7.3 (4.8-10.8) K/uL RBC 4.19 (3.80-5.20) Mil/uL Hgb 10.9 L (12.0-16.0) g/dL Hct 34.3 (34.0-47.0) % MCV 81.9 (81.0-99.0) fl MCH 26.1 L (27.0-31.0) pg MCHC 31.9 L (33.0-37.0) g/dL RDW 16.7 H (11.5-14.5) % Plt Count 447 H (130-400) K/uL Sodium (132-148) mmol/l Potassium (3.6-5.0) MMOL/L Chloride (98-107) mmol/L Carbon Dioxide (22-30) mmol/L Anion Gap (10-20) BUN (7-17) mg/dl Creatinine (0.7-1.2) mg/dl Est GFR ( Amer) Est GFR (Non-Af Amer) POC Glucose (mg/dL) 269 H 244 H (65-110) mg/dL Random Glucose (65-105) mg/dL Calcium (8.4-10.2) mg/dL Valproic Acid (50.0-100.0) ug/mL 08/21/18 08/21/18 08/21/18 Range/Units 15:50 11:47 06:18 WBC (4.8-10.8) K/uL RBC (3.80-5.20) Mil/uL Hgb (12.0-16.0) g/dL Hct (34.0-47.0) % MCV (81.0-99.0) fl MCH (27.0-31.0) pg MCHC (33.0-37.0) g/dL RDW (11.5-14.5) % Plt Count (130-400) K/uL Sodium (132-148) mmol/l Potassium (3.6-5.0) MMOL/L Chloride (98-107) mmol/L Carbon Dioxide (22-30) mmol/L Anion Gap (10-20) BUN (7-17) mg/dl Creatinine (0.7-1.2) mg/dl Est GFR ( Amer) Est GFR (Non-Af Amer) POC Glucose (mg/dL) 272 H 354 H (65-110) mg/dL Random Glucose (65-105) mg/dL Calcium (8.4-10.2) mg/dL Valproic Acid 24.5 L (50.0-100.0) ug/mL Laboratory Results - last 24 hr 08/21/18 08/21/18 08/21/18 06:18 11:47 15:50 WBC RBC Hgb Hct MCV MCH MCHC RDW Plt Count Sodium Potassium Chloride Carbon Dioxide Anion Gap BUN Creatinine Est GFR ( Amer) Est GFR (Non-Af Amer) POC Glucose (mg/dL) 354 H 272 H Random Glucose Calcium Valproic Acid 24.5 L 08/21/18 08/21/18 08/22/18 16:42 20:58 05:20 WBC 7.3 RBC 4.19 Hgb 10.9 L Hct 34.3 MCV 81.9 MCH 26.1 L MCHC 31.9 L RDW 16.7 H Plt Count 447 H Sodium Potassium Chloride Carbon Dioxide Anion Gap BUN Creatinine Est GFR ( Amer) Est GFR (Non-Af Amer) POC Glucose (mg/dL) 244 H 269 H Random Glucose Calcium Valproic Acid 08/22/18 08/22/18 08/22/18 05:20 05:20 05:54 WBC RBC Hgb Hct MCV MCH MCHC RDW Plt Count Sodium 146 Potassium 3.1 L Chloride 111 H Carbon Dioxide 24 Anion Gap 14 BUN 43 H Creatinine 1.4 H Est GFR ( Amer) 46 Est GFR (Non-Af Amer) 38 POC Glucose (mg/dL) 196 H Random Glucose 204 H Calcium 9.9 Valproic Acid 45.2 L Fingerstick Blood Sugar Results: 269 Critical Care Progress Note - Nutrition Nutrition: Nutrition Category Date Time Status Dysphagia/Modified Consistency Diet [DIET] Diets 08/20/18 Dinner Active Assessment/Plan - Assessment and Plan (Free Text) Assessment: 1. Altered Mental Status - was improving but this morning was hard to assess as pt is very sleepy , due to meds, although responsive to verbal command -Lumbar puncture was unremarkable and Cx negative --likely toxic encephalopathy as per neurology -AMS may be due to Schitzophrenia as antispychotic medication was on hold. Psych on board. -C/W Depakote for Seizures -C/W Risperdal and Lexapro. Haldol prn -Procalcitonin 0.05 -LDH: 765 2. Electrolyte imbalance -Hypokalemia- being repleted. -Hypernatremia- : improved with hypotonic fluid, will Dc IVF now, risk for hyponatremia due to psych meds 3. Hypertension -Has been high but low today, probably transiently, due to meds, will monitor , DC hydralazine and DC losartan for the time being, will watch for HR, if < 55, w ill hold coreg and will reduce the dose, . -cont Lasix, Amlodipine, Coreg 4. DM -ISS, Levemir 35 -Januvia -Metformin 5. s/p Cardio-Respiratory Arrest -s/p Code Blue (received 3 doses of epinephrine); unclear if real cardiac arrest -extubated, tolerating well 6. Localization-related (focal) (partial) symptomatic epilepsy -as per neuro due to pts infection and antipsychotic lowered seizure threshold; appear to have resolved now -cont Keppra 1000 mg Q12 -Clozapine discontinued 7. Edema -improving -IV lasix given -Renal function stable 8.Hypothyrodism -Chronic, uncontrolled -Levothyroxine 50mcg daily 9. IDDM2 -Chronic -oral meds held -Levemir 35 units QHS -Insulin coverage scale and hypoglycemia protocol -Hypoglycemia protocol 10. Schizophrenia -Chronic -Home meds held for now -cont Depakote -Psych consulted- rec Lexapro and Risperdal 11. DVT prophylaxis -Lovenox 40mg SC QD -SCDs
[2018-08-22] MEDS: Lactated Ringer's 1,000 ML IV SCH (11:30)
[2018-08-22] MEDS: Fluconazole IV 100mg/50 ml NS 50 ML IVPB SCH (11:37)
[2018-08-22] MEDS: Potassium Chloride 20 mEq 100 ML IVPB SCH ×2 (11:38→16:56)
[2018-08-22] MEDS: Lacosamide 100 MG Tab PO SCH ×2 (11:41→20:22)
--- NOTE | 2018-08-22 17:03 | CP.PCM.PN ---
Subjective - Date & Time of Evaluation Date of Evaluation: 08/22/18 Time of Evaluation: 17:01 - Subjective Subjective: Mrs. Ahumada was seen and examined today at bedside. She was quite somnolent and did not participate with my examination. There were no acute events overnight. She was recently extubated and appears to be breathing well on her own. Objective - Vital Signs/Intake and Output Vital Signs (last 24 hours): Temp Pulse Resp BP Pulse Ox 98.8 F 68 28 H 120/61 100 08/22/18 16:00 08/22/18 16:00 08/22/18 16:00 08/22/18 16:00 08/22/18 16:00 Intake and Output: 08/22/18 08/22/18 06:59 18:59 Intake Total 1120 1270 Output Total 300 Balance 820 1270 - Medications Medications: Current Medications Acetaminophen (Tylenol 325mg Tab) 650 mg PO Q6 PRN PRN Reason: Fever >100.4 F Last Admin: 08/05/18 05:35 Dose: 650 mg Acetaminophen (Tylenol 650mg/20.3ml Solution Ud) 650 mg PO Q6 PRN PRN Reason: Temperature Last Admin: 08/18/18 11:22 Dose: 650 mg Albuterol/Ipratropium (Duoneb 3 Mg/0.5 Mg (3 Ml) Ud) 3 ml INH RQ6 [facility] Last Admin: 08/22/18 13:02 Dose: 3 ml Amlodipine Besylate (Norvasc) 10 mg PO DAILY [facility] Last Admin: 08/22/18 08:52 Dose: 10 mg Atorvastatin Calcium (Lipitor) 10 mg PO HS [facility] Last Admin: 08/21/18 21:00 Dose: 10 mg Carvedilol (Coreg) 25 mg PO Q12 [facility] Last Admin: 08/22/18 08:48 Dose: 25 mg Clozapine (Clozaril) 25 mg PO DAILY [facility] Last Admin: 08/22/18 08:48 Dose: 25 mg Dextrose (Dextrose 50% Inj) 0 ml IV STAT PRN; Protocol PRN Reason: Hypoglycemia Protocol Dextrose (Glutose 15) 0 gm PO ONCE PRN; Protocol PRN Reason: Hypoglycemia Protocol Divalproex Sodium (Depakote Er(Once Daily)) 2,000 mg PO HS [facility] Last Admin: 08/21/18 21:08 Dose: 2,000 mg Enoxaparin Sodium (Lovenox) 40 mg SC DAILY [facility]; Protocol Last Admin: 08/22/18 08:51 Dose: 40 mg Escitalopram Oxalate (Lexapro) 10 mg PO HS [facility] Last Admin: 08/21/18 21:00 Dose: 10 mg Furosemide (Lasix) 20 mg IVP DAILY [facility] Last Admin: 08/22/18 08:51 Dose: 20 mg Glucagon (Glucagen Diagnostic Kit) 0 mg IM STAT PRN; Protocol PRN Reason: Hypoglycemia Protocol Haloperidol Lactate (Haldol) 5 mg IVP Q8 PRN PRN Reason: Agitation Last Admin: 08/13/18 09:45 Dose: 5 mg Sodium Chloride (Sodium Chloride 0.45%) 1,000 mls @ 125 mls/hr IV .Q8H [facility] Stop: 08/23/18 10:30 Lactated Ringer's (Lactated Ringer's) 1,000 mls @ 75 mls/hr IV .[id number] [facility] Last Admin: 08/22/18 11:30 Dose: 75 mls/hr Ibuprofen (Motrin Tab) 600 mg PO Q6 PRN PRN Reason: Fever >100.4 F Last Admin: 08/19/18 07:23 Dose: 600 mg Insulin Detemir (Levemir) 35 units SC [facility] Last Admin: 08/21/18 21:02 Dose: 35 units Insulin Human Lispro (Humalog) 0 units SC [facility]; Protocol Last Admin: 08/22/18 16:49 Dose: Not Given Lacosamide (Vimpat) 100 mg PO Q12 [facility] Lactulose (Enulose) 20 gm PO Q12 PRN PRN Reason: Constipation Last Admin: 08/19/18 08:40 Dose: 20 gm Levothyroxine Sodium (Synthroid) 50 mcg PO DAILY@0630 [facility] Last Admin: 08/22/18 05:56 Dose: 50 mcg Metformin HCl (Glucophage) 850 mg PO BIDWM [facility] Last Admin: 08/22/18 16:48 Dose: Not Given Multivitamins/Minerals (Therapeutic-M Tab) 1 tab PO DAILY [facility] Last Admin: 08/11/18 09:03 Dose: Not Given Pantoprazole Sodium (Protonix Ec Tab) 40 mg PO DAILY [facility] Last Admin: 08/22/18 08:52 Dose: 40 mg Sitagliptin Phosphate (Januvia) 100 mg PO HS [facility] Last Admin: 08/21/18 21:00 Dose: 100 mg - Labs Labs: 08/22/18 05:20 08/22/18 05:20 PT 12.2 Seconds (9.8-13.1) 08/04/18 00:30 INR 1.1 08/04/18 00:30 APTT 31.5 Seconds (25.6-37.1) 08/02/18 22:20 - Neurological Exam Neurological Exam: Altered, CN II-XII Intact, Reflexes Normal Neuro motor strength exam: Left Upper Extremity: 3, Right Upper Extremity: 3, Left Lower Extremity: 3, Right Lower Extremity: 3 Assessment and Plan (1) Localization-related (focal) (partial) symptomatic epilepsy and epileptic syndromes with complex partial seizures, intractable, with status epilepticus Status: Resolved (2) Toxic metabolic encephalopathy Assessment & Plan: Likely also due to cardiac arrest. Will re-evaluate with a new MRI since she is still non-verbal. Status: Acute
[2018-08-22] MEDS: Divalproex 500 mg ER (ONCE DAILY formulation) PO SCH (21:04)
[2018-08-22] MEDS: Insulin Detemir 100 Units/ml Inj SC SCH (21:11)
[2018-08-23] MEDS: Albuterol-Ipratrop 3 mg / 0.5 (3 ml) UD INH SCH ×3 (01:10→13:07)
[2018-08-23] MEDS: Lactated Ringer's 1,000 ML IV SCH ×3 (02:00→21:40)
[2018-08-23 05:53] LABS: CALCIUM 9.5 mg/dL (8.4-10.2)
[2018-08-23] MEDS: Levothyroxine 50 MCG TAB PO SCH (06:56)
[2018-08-23] MEDS: Insulin Lispro (humaLOG) 100 Units/ml Inj SC SCH ×4 (07:40→21:35)
[2018-08-23] MEDS: Enoxaparin 40 mg Syringe SC SCH (08:44)
[2018-08-23] MEDS: Pantoprazole 40 mg EC Tab PO SCH (08:45)
[2018-08-23] MEDS: Lacosamide 100 MG Tab PO SCH ×2 (08:47→20:56)
--- NOTE | 2018-08-23 09:27 | CP.PCM.PN ---
<Valentin Berg - Last Filed: 08/23/18 10:04> Subjective - Date & Time of Evaluation Date of Evaluation: 08/23/18 Time of Evaluation: 10:04 - Subjective Subjective: Patient seen and examined at bedside this morning. Opens eyes to voice, tracking, smiling, more alert today, remains non verbal. Objective - Vital Signs/Intake and Output Vital Signs (last 24 hours): Temp Pulse Resp BP Pulse Ox 98.6 F 70 18 140/71 100 08/23/18 09:00 08/23/18 09:00 08/23/18 09:00 08/23/18 09:00 08/23/18 09:00 Intake and Output: 08/23/18 08/23/18 06:59 18:59 Intake Total 1070 175 Output Total 400 Balance 670 175 - Medications Medications: Current Medications Acetaminophen (Tylenol 325mg Tab) 650 mg PO Q6 PRN PRN Reason: Fever >100.4 F Last Admin: 08/05/18 05:35 Dose: 650 mg Acetaminophen (Tylenol 650mg/20.3ml Solution Ud) 650 mg PO Q6 PRN PRN Reason: Temperature Last Admin: 08/18/18 11:22 Dose: 650 mg Albuterol/Ipratropium (Duoneb 3 Mg/0.5 Mg (3 Ml) Ud) 3 ml INH RQ6 [facility] Last Admin: 08/23/18 07:27 Dose: 3 ml Amlodipine Besylate (Norvasc) 10 mg PO DAILY [facility] Last Admin: 08/22/18 08:52 Dose: 10 mg Atorvastatin Calcium (Lipitor) 10 mg PO HS [facility] Last Admin: 08/22/18 21:04 Dose: 10 mg Carvedilol (Coreg) 25 mg PO Q12 [facility] Last Admin: 08/23/18 08:42 Dose: 25 mg Clozapine (Clozaril) 25 mg PO DAILY [facility] Last Admin: 08/23/18 08:43 Dose: 25 mg Dextrose (Dextrose 50% Inj) 0 ml IV STAT PRN; Protocol PRN Reason: Hypoglycemia Protocol Dextrose (Glutose 15) 0 gm PO ONCE PRN; Protocol PRN Reason: Hypoglycemia Protocol Divalproex Sodium (Depakote Er(Once Daily)) 2,000 mg PO HS [facility] Last Admin: 08/22/18 21:04 Dose: 2,000 mg Enoxaparin Sodium (Lovenox) 40 mg SC DAILY [facility]; Protocol Last Admin: 08/23/18 08:44 Dose: 40 mg Escitalopram Oxalate (Lexapro) 10 mg PO [facility] Last Admin: 08/22/18 21:05 Dose: 10 mg Furosemide (Lasix) 20 mg IVP DAILY [facility] Last Admin: 08/23/18 08:44 Dose: 20 mg Glucagon (Glucagen Diagnostic Kit) 0 mg IM STAT PRN; Protocol PRN Reason: Hypoglycemia Protocol Haloperidol Lactate (Haldol) 5 mg IVP Q8 PRN PRN Reason: Agitation Last Admin: 08/13/18 09:45 Dose: 5 mg Lactated Ringer's (Lactated Ringer's) 1,000 mls @ 75 mls/hr IV .[id number] [facility] Last Admin: 08/23/18 07:39 Dose: 75 mls/hr Ibuprofen (Motrin Tab) 600 mg PO Q6 PRN PRN Reason: Fever >100.4 F Last Admin: 08/19/18 07:23 Dose: 600 mg Insulin Detemir (Levemir) 35 units SC [facility] Last Admin: 08/22/18 21:11 Dose: 35 units Insulin Human Lispro (Humalog) 0 units SC [facility]; Protocol Last Admin: 08/23/18 07:40 Dose: Not Given Lacosamide (Vimpat) 100 mg PO Q12 [facility] Last Admin: 08/23/18 08:47 Dose: 100 mg Lactulose (Enulose) 20 gm PO Q12 PRN PRN Reason: Constipation Last Admin: 08/19/18 08:40 Dose: 20 gm Levothyroxine Sodium (Synthroid) 50 mcg PO DAILY@0630 [facility] Last Admin: 08/23/18 06:56 Dose: 50 mcg Metformin HCl (Glucophage) 850 mg PO BIDWM [facility] Last Admin: 08/23/18 08:44 Dose: 850 mg Multivitamins/Minerals (Therapeutic-M Tab) 1 tab PO DAILY [facility] Last Admin: 08/11/18 09:03 Dose: Not Given Pantoprazole Sodium (Protonix Ec Tab) 40 mg PO DAILY [facility] Last Admin: 08/23/18 08:45 Dose: 40 mg Sitagliptin Phosphate (Januvia) 100 mg PO [facility] Last Admin: 08/22/18 21:05 Dose: 100 mg - Labs Labs: 11/17/18 05:20 08/23/18 04:25 PT 12.2 Seconds (9.8-13.1) 08/04/18 00:30 INR 1.1 08/04/18 00:30 APTT 31.5 Seconds (25.6-37.1) 08/02/18 22:20 - Constitutional Appears: Non-toxic, No Acute Distress - Head Exam Head Exam: NORMAL INSPECTION - Eye Exam Eye Exam: Normal appearance - ENT Exam ENT Exam: Mucous Membranes Moist - Respiratory Exam Respiratory Exam: Clear to Ausculation Bilateral. absent: Rales, Rhonchi, Wheezes, Respiratory Distress - Cardiovascular Exam Cardiovascular Exam: REGULAR RHYTHM, +S1, +S2 - GI/Abdominal Exam GI & Abdominal Exam: Soft, Normal Bowel Sounds. absent: Tenderness - Extremities Exam Extremities Exam: absent: Pedal Edema - Neurological Exam Neurological Exam: Alert, Awake. absent: Oriented x3 Additional comments: remains non-verbal but makes eye contact and is tracking - Psychiatric Exam Additional comments: seems to be in better spirits today, smiling - Skin Skin Exam: Normal Color Assessment and Plan - Assessment and Plan (Free Text) Assessment: 62 yo female from a correction, with hx of DM II, schizophrenia and HTN; initially admitted for sepsis and pneumonia. Initial labs were significant for l eukocytosis with bandemia; CXR showed atelectasis vs infiltrate and pt was started on vancomycin, zosyn and zithromax IV. During the admission, the pt was found to be bradycardic and became unresponsive. A Code Blue was called for suspected Pulseless Electrical Activity; compressions done ,was achieved after 3 rounds of epinephrine. She was then transferred to ICU. When weaned off sedation, mental status changes appreciated per family when compared to her baseline. Discussion to be held with daughter (next of kin) to establish power of sports attorney. Plan: 1. Altered Mental Status -improving but not at baseline as per family -empirically treated with IV Acyclovir; Lumbar puncture unremarkable and Cx negative -MRI of Brain - no signs of Stroke nor Encephalitis -likely toxic encephalopathy as per neurology -AMS may be due to Schitzophrenia as antispychotic medication was on hold. Started on Clozapine at low dose with gradual increase and close monitoring of WBC count. Psych on board. -C/W Depakote for Seizures -C/W Lexapro. Haldol prn -Procalcitonin 0.05 -LDH: 765 2. Electrolyte imbalance -Hypokalemia- resolved, 3.1 today,repleted this morning -Hypernatremia-improved -on IVF LR @ 75 ml/hr -3.9 today, resolved -f/u AM BMP 3. JOSHUA -Cr 1.4 this morning -May be pre-renal; -on IVF LR @ 75 ml/hr 4. Hypertension -uncontrolled but improved today, 140's systolic -cont Lasix, Amlodipine, Coreg and Losartan -Hydralazine 100mg QID -clonopine 0.1mg Q12H started -c/w monitoring BPs 5. DM -c/w Iinsulin lispro correction scale -c/w Levemir 35 Units SC HS -c/w Januvia -c/w Metformin 6. s/p Cardio-Respiratory Arrest -s/p Code Blue (received 3 doses of epinephrine); unclear if real cardiac arrest -extubated, tolerating well 7. Localization-related (focal) (partial) symptomatic epilepsy -as per neuro due to pts infection and antipsychotic lowered seizure threshold; appear to have resolved now -cont Keppra 1000 mg Q12 -Clozapine discontinued 8. Sepsis 2/2 to Pneumonia, likely bacterial -resolved 9. Anasarca -improving -IV lasix given 10.Hypothyrodism -Chronic, uncontrolled -Levothyroxine 50mcg daily 11. Schizophrenia -Chronic -c/w clozapine 25 mg PO daily, to be titrated weekly by psychiatry -Home meds held for now -cont Depakote -Psych consulted- rec Lexapro and Risperdal 12. DVT prophylaxis -Lovenox 40mg SC QD -SCDs 13. Code Status -full code <Baylee Garcia - Last Filed: 08/23/18 13:21> Objective - Vital Signs/Intake and Output Vital Signs (last 24 hours): Temp Pulse Resp BP Pulse Ox 98.6 F 70 18 140/71 100 08/23/18 09:00 08/23/18 09:00 08/23/18 09:00 08/23/18 10:41 08/23/18 09:00 Intake and Output: 08/23/18 08/23/18 06:59 18:59 Intake Total 1070 445 Output Total 400 Balance 670 445 - Medications Medications: Current Medications Acetaminophen (Tylenol 325mg Tab) 650 mg PO Q6 PRN PRN Reason: Fever >100.4 F Last Admin: 08/05/18 05:35 Dose: 650 mg Acetaminophen (Tylenol 650mg/20.3ml Solution Ud) 650 mg PO Q6 PRN PRN Reason: Temperature Last Admin: 08/18/18 11:22 Dose: 650 mg Albuterol/Ipratropium (Duoneb 3 Mg/0.5 Mg (3 Ml) Ud) 3 ml INH RQ6 [facility] Last Admin: 08/23/18 13:07 Dose: 3 ml Amlodipine Besylate (Norvasc) 10 mg PO DAILY [facility] Last Admin: 08/23/18 10:41 Dose: 10 mg Atorvastatin Calcium (Lipitor) 10 mg PO HS [facility] Last Admin: 08/22/18 21:04 Dose: 10 mg Carvedilol (Coreg) 25 mg PO Q12 [facility] Last Admin: 08/23/18 08:42 Dose: 25 mg Clozapine (Clozaril) 25 mg PO HS [facility] Dextrose (Dextrose 50% Inj) 0 ml IV STAT PRN; Protocol PRN Reason: Hypoglycemia Protocol Dextrose (Glutose 15) 0 gm PO ONCE PRN; Protocol PRN Reason: Hypoglycemia Protocol Divalproex Sodium (Depakote Er(Once Daily)) 2,000 mg PO HS [facility] Last Admin: 08/22/18 21:04 Dose: 2,000 mg Enoxaparin Sodium (Lovenox) 40 mg SC DAILY [facility]; Protocol Last Admin: 08/23/18 08:44 Dose: 40 mg Escitalopram Oxalate (Lexapro) 10 mg PO HS [facility] Last Admin: 08/22/18 21:05 Dose: 10 mg Furosemide (Lasix) 20 mg IVP DAILY [facility] Last Admin: 08/23/18 08:44 Dose: 20 mg Glucagon (Glucagen Diagnostic Kit) 0 mg IM STAT PRN; Protocol PRN Reason: Hypoglycemia Protocol Haloperidol Lactate (Haldol) 5 mg IVP Q8 PRN PRN Reason: Agitation Last Admin: 08/13/18 09:45 Dose: 5 mg Lactated Ringer's (Lactated Ringer's) 1,000 mls @ 75 mls/hr IV .[id number] [facility] Last Admin: 08/23/18 07:39 Dose: 75 mls/hr Ibuprofen (Motrin Tab) 600 mg PO Q6 PRN PRN Reason: Fever >100.4 F Last Admin: 08/19/18 07:23 Dose: 600 mg Insulin Detemir (Levemir) 35 units SC [facility] Last Admin: 08/22/18 21:11 Dose: 35 units Insulin Human Lispro (Humalog) 0 units SC [facility]; Protocol Last Admin: 08/23/18 11:29 Dose: 2 units Lacosamide (Vimpat) 100 mg PO Q12 [facility] Last Admin: 08/23/18 08:47 Dose: 100 mg Lactulose (Enulose) 20 gm PO Q12 PRN PRN Reason: Constipation Last Admin: 08/19/18 08:40 Dose: 20 gm Levothyroxine Sodium (Synthroid) 50 mcg PO DAILY@0630 [facility] Last Admin: 08/23/18 06:56 Dose: 50 mcg Metformin HCl (Glucophage) 850 mg PO BIDWM [facility] Last Admin: 08/23/18 08:44 Dose: 850 mg Multivitamins/Minerals (Therapeutic-M Tab) 1 tab PO DAILY [facility] Last Admin: 08/11/18 09:03 Dose: Not Given Pantoprazole Sodium (Protonix Ec Tab) 40 mg PO DAILY [facility] Last Admin: 08/23/18 08:45 Dose: 40 mg Sitagliptin Phosphate (Januvia) 100 mg PO [facility] Last Admin: 08/22/18 21:05 Dose: 100 mg - Labs Labs: 08/22/18 05:20 08/23/18 04:25 PT 12.2 Seconds (9.8-13.1) 08/04/18 00:30 INR 1.1 08/04/18 00:30 APTT 31.5 Seconds (25.6-37.1) 08/02/18 22:20 Attending/Attestation - Attestation I have personally seen and examined this patient.: Yes I have fully participated in the care of the patient.: Yes I have reviewed all pertinent clinical information, including history, physical exam and plan: Yes Notes (Text): Additional Note: AMS likely due to Toxic Metabolic Encephalopathy, on top of underlying Psych Disorder - improving - follows commands - cont Clozaril, Psych consulted DM type II with Hyperglycemia with Insulin use - cont Levemir, Metformin - monitor Crea and HCO3 while on metformin due to Crea=1.4 Acute Kidney Injury likely from Dehydration due to poor PO intake - IVF hydration
--- NOTE | 2018-08-23 13:41 | CP.PCM.PN ---
Subjective - Date & Time of Evaluation Date of Evaluation: 08/23/18 Time of Evaluation: 08:00 - Subjective Subjective: more alert non verbal afebrile Objective - Vital Signs/Intake and Output Vital Signs (last 24 hours): Temp Pulse Resp BP Pulse Ox 98.6 F 70 18 140/71 100 08/23/18 09:00 08/23/18 09:00 08/23/18 09:00 08/23/18 10:41 08/23/18 09:00 Intake and Output: 08/23/18 08/23/18 06:59 18:59 Intake Total 1070 445 Output Total 400 Balance 670 445 - Medications Medications: Current Medications Acetaminophen (Tylenol 325mg Tab) 650 mg PO Q6 PRN PRN Reason: Fever >100.4 F Last Admin: 08/05/18 05:35 Dose: 650 mg Acetaminophen (Tylenol 650mg/20.3ml Solution Ud) 650 mg PO Q6 PRN PRN Reason: Temperature Last Admin: 08/18/18 11:22 Dose: 650 mg Albuterol/Ipratropium (Duoneb 3 Mg/0.5 Mg (3 Ml) Ud) 3 ml INH RQ6 [facility] Last Admin: 08/23/18 13:07 Dose: 3 ml Amlodipine Besylate (Norvasc) 10 mg PO DAILY [facility] Last Admin: 08/23/18 10:41 Dose: 10 mg Atorvastatin Calcium (Lipitor) 10 mg PO HS [facility] Last Admin: 08/22/18 21:04 Dose: 10 mg Carvedilol (Coreg) 25 mg PO Q12 [facility] Last Admin: 08/23/18 08:42 Dose: 25 mg Clozapine (Clozaril) 25 mg PO HS [facility] Dextrose (Dextrose 50% Inj) 0 ml IV STAT PRN; Protocol PRN Reason: Hypoglycemia Protocol Dextrose (Glutose 15) 0 gm PO ONCE PRN; Protocol PRN Reason: Hypoglycemia Protocol Divalproex Sodium (Depakote Er(Once Daily)) 2,000 mg PO HS [facility] Last Admin: 08/22/18 21:04 Dose: 2,000 mg Enoxaparin Sodium (Lovenox) 40 mg SC DAILY [facility]; Protocol Last Admin: 08/23/18 08:44 Dose: 40 mg Escitalopram Oxalate (Lexapro) 10 mg PO HS [facility] Last Admin: 08/22/18 21:05 Dose: 10 mg Furosemide (Lasix) 20 mg IVP DAILY [facility] Last Admin: 08/23/18 08:44 Dose: 20 mg Glucagon (Glucagen Diagnostic Kit) 0 mg IM STAT PRN; Protocol PRN Reason: Hypoglycemia Protocol Haloperidol Lactate (Haldol) 5 mg IVP Q8 PRN PRN Reason: Agitation Last Admin: 08/13/18 09:45 Dose: 5 mg Lactated Ringer's (Lactated Ringer's) 1,000 mls @ 75 mls/hr IV .[id number] [facility] Last Admin: 08/23/18 07:39 Dose: 75 mls/hr Ibuprofen (Motrin Tab) 600 mg PO Q6 PRN PRN Reason: Fever >100.4 F Last Admin: 08/19/18 07:23 Dose: 600 mg Insulin Detemir (Levemir) 35 units SC [facility] Last Admin: 08/22/18 21:11 Dose: 35 units Insulin Human Lispro (Humalog) 0 units SC [facility]; Protocol Last Admin: 08/23/18 11:29 Dose: 2 units Lacosamide (Vimpat) 100 mg PO Q12 [facility] Last Admin: 08/23/18 08:47 Dose: 100 mg Lactulose (Enulose) 20 gm PO Q12 PRN PRN Reason: Constipation Last Admin: 08/19/18 08:40 Dose: 20 gm Levothyroxine Sodium (Synthroid) 50 mcg PO DAILY@0630 [facility] Last Admin: 08/23/18 06:56 Dose: 50 mcg Metformin HCl (Glucophage) 850 mg PO BIDWM [facility] Last Admin: 08/23/18 08:44 Dose: 850 mg Multivitamins/Minerals (Therapeutic-M Tab) 1 tab PO DAILY [facility] Last Admin: 08/11/18 09:03 Dose: Not Given Pantoprazole Sodium (Protonix Ec Tab) 40 mg PO DAILY [facility] Last Admin: 08/23/18 08:45 Dose: 40 mg Sitagliptin Phosphate (Januvia) 100 mg PO [facility] Last Admin: 08/22/18 21:05 Dose: 100 mg - Labs Labs: 08/22/18 05:20 08/23/18 04:25 PT 12.2 Seconds (9.8-13.1) 08/04/18 00:30 INR 1.1 08/04/18 00:30 APTT 31.5 Seconds (25.6-37.1) 08/02/18 22:20 - Constitutional Appears: Non-toxic, Confused, Chronically Ill - Head Exam Head Exam: NORMOCEPHALIC - Eye Exam Eye Exam: absent: Scleral icterus - ENT Exam ENT Exam: Mucous Membranes Dry - Neck Exam Neck Exam: absent: Lymphadenopathy - Respiratory Exam Respiratory Exam: Decreased Breath Sounds - Cardiovascular Exam Cardiovascular Exam: REGULAR RHYTHM - GI/Abdominal Exam GI & Abdominal Exam: Distended - Rectal Exam Rectal Exam: Deferred - Exam Exam: NORMAL INSPECTION - Extremities Exam Extremities Exam: absent: Pedal Edema - Back Exam Back Exam: absent: CVA tenderness (L), CVA tenderness (R) Assessment and Plan (1) Pneumonia Status: Acute (2) Severe sepsis Status: Acute - Assessment and Plan (Free Text) Assessment: afeb off antibiotics cont close monitoring and Neuro follow up for seizures
[2018-08-23] MEDS: Divalproex 500 mg ER (ONCE DAILY formulation) PO SCH (21:03)
[2018-08-23] MEDS: Insulin Detemir 100 Units/ml Inj SC SCH (21:34)
[2018-08-23] MEDS ORDERED: Albuterol-Ipratrop 3 mg / 0.5 (3 ml) UD INH PRN (23:56)
[2018-08-24] MEDS ORDERED: Albuterol-Ipratrop 3 mg / 0.5 (3 ml) UD ONE (00:06)
[2018-08-24 05:32] LABS: HEMOGLOBIN 9.4 g/dL (12.0-16.0); MEAN CELL VOLUME 83.1 fl (81.0-99.0); MEAN CORPUSCULAR HEMOGLOBIN 26.4 pg (27.0-31.0); MEAN CORPUSCULAR HGB CONC 31.8 g/dL (33.0-37.0); RBC 3.56 Mil/uL (3.80-5.20); RED CELL DISTRIBUTION WIDTH 17.4 % (11.5-14.5); WHITE BLOOD COUNT 4.9 K/uL (4.8-10.8)
[2018-08-24 05:39] LABS: BLOOD UREA NITROGEN 32 mg/dl (7-17); CALCIUM 9.4 mg/dL (8.4-10.2); GFR NON-AFRICAN AMERICAN > 60
[2018-08-24] MEDS: Levothyroxine 50 MCG TAB PO SCH (05:41)
[2018-08-24] MEDS: Insulin Lispro (humaLOG) 100 Units/ml Inj SC SCH ×4 (06:52→21:41)
--- NOTE | 2018-08-24 08:13 | CP.PCM.PN ---
<Renetta Kunz - Last Filed: 08/24/18 10:57> Subjective - Date & Time of Evaluation Date of Evaluation: 08/24/18 Time of Evaluation: 08:00 - Subjective Subjective: Pt seen and evaluated at the bedside. Seen kicking arms and legs, agitated. Eyes open but still non verbal. 5mg Haldol prn and 1:1 ordered. Daughter at bedside. Objective - Vital Signs/Intake and Output Vital Signs (last 24 hours): Temp Pulse Resp BP Pulse Ox 98.7 F 76 24 176/51 H 96 08/24/18 04:05 08/24/18 06:45 08/24/18 06:45 08/24/18 06:45 08/24/18 06:45 Intake and Output: 08/24/18 08/24/18 06:59 18:59 Intake Total 1160 Output Total 400 Balance 760 - Medications Medications: Current Medications Acetaminophen (Tylenol 325mg Tab) 650 mg PO Q6 PRN PRN Reason: Fever >100.4 F Last Admin: 08/05/18 05:35 Dose: 650 mg Acetaminophen (Tylenol 650mg/20.3ml Solution Ud) 650 mg PO Q6 PRN PRN Reason: Temperature Last Admin: 08/18/18 11:22 Dose: 650 mg Albuterol/Ipratropium (Duoneb 3 Mg/0.5 Mg (3 Ml) Ud) 3 ml INH RQ6 PRN PRN Reason: Shortness of Breath Last Admin: 08/24/18 00:07 Dose: 3 ml Amlodipine Besylate (Norvasc) 10 mg PO DAILY [facility] Last Admin: 08/23/18 10:41 Dose: 10 mg Atorvastatin Calcium (Lipitor) 10 mg PO HS [facility] Last Admin: 08/23/18 21:03 Dose: 10 mg Carvedilol (Coreg) 25 mg PO Q12 [facility] Last Admin: 08/23/18 20:56 Dose: 25 mg Clozapine (Clozaril) 25 mg PO [facility] Dextrose (Dextrose 50% Inj) 0 ml IV STAT PRN; Protocol PRN Reason: Hypoglycemia Protocol Dextrose (Glutose 15) 0 gm PO ONCE PRN; Protocol PRN Reason: Hypoglycemia Protocol Divalproex Sodium (Depakote Er(Once Daily)) 2,000 mg PO [facility] Last Admin: 08/23/18 21:03 Dose: 2,000 mg Enoxaparin Sodium (Lovenox) 40 mg SC DAILY [facility]; Protocol Last Admin: 08/23/18 08:44 Dose: 40 mg Escitalopram Oxalate (Lexapro) 10 mg PO [facility] Last Admin: 08/23/18 21:04 Dose: 10 mg Furosemide (Lasix) 20 mg IVP DAILY [facility] Last Admin: 08/23/18 08:44 Dose: 20 mg Glucagon (Glucagen Diagnostic Kit) 0 mg IM STAT PRN; Protocol PRN Reason: Hypoglycemia Protocol Haloperidol Lactate (Haldol) 5 mg IVP Q8 PRN PRN Reason: Agitation Last Admin: 08/13/18 09:45 Dose: 5 mg Lactated Ringer's (Lactated Ringer's) 1,000 mls @ 75 mls/hr IV .[id number] [facility] Last Admin: 08/23/18 21:40 Dose: 75 mls/hr Ibuprofen (Motrin Tab) 600 mg PO Q6 PRN PRN Reason: Fever >100.4 F Last Admin: 08/19/18 07:23 Dose: 600 mg Insulin Detemir (Levemir) 25 units SC [facility] Insulin Human Lispro (Humalog) 0 units SC [facility]; Protocol Last Admin: 08/24/18 06:52 Dose: Not Given Lacosamide (Vimpat) 100 mg PO Q12 [facility] Last Admin: 08/23/18 20:56 Dose: 100 mg Lactulose (Enulose) 20 gm PO Q12 PRN PRN Reason: Constipation Last Admin: 08/19/18 08:40 Dose: 20 gm Levothyroxine Sodium (Synthroid) 50 mcg PO DAILY@0630 [facility] Last Admin: 08/24/18 05:41 Dose: 50 mcg Metformin HCl (Glucophage) 850 mg PO BIDWM [facility] Last Admin: 08/23/18 16:25 Dose: Not Given Multivitamins/Minerals (Therapeutic-M Tab) 1 tab PO DAILY [facility] Last Admin: 08/11/18 09:03 Dose: Not Given Pantoprazole Sodium (Protonix Ec Tab) 40 mg PO DAILY [facility] Last Admin: 08/23/18 08:45 Dose: 40 mg Sitagliptin Phosphate (Januvia) 100 mg PO [facility] Last Admin: 08/23/18 21:04 Dose: 100 mg - Labs Labs: 08/24/18 04:30 08/24/18 04:30 PT 12.2 Seconds (9.8-13.1) 08/04/18 00:30 INR 1.1 08/04/18 00:30 APTT 31.5 Seconds (25.6-37.1) 08/02/18 22:20 - Constitutional Appears: Agitated - Head Exam Head Exam: NORMAL INSPECTION - Eye Exam Eye Exam: Normal appearance - ENT Exam ENT Exam: Mucous Membranes Moist - Neck Exam Neck Exam: absent: Meningismus - Respiratory Exam Respiratory Exam: Decreased Breath Sounds. absent: Accessory Muscle Use, Rales, Wheezes - Cardiovascular Exam Cardiovascular Exam: REGULAR RHYTHM, +S1, +S2 - GI/Abdominal Exam GI & Abdominal Exam: Distended, Soft, Normal Bowel Sounds. absent: Tenderness - Extremities Exam Extremities Exam: Normal Inspection - Neurological Exam Neurological Exam: Altered (eyes open, tracking), Awake. absent: Motor Sensory Deficit, Oriented x3 Neuro motor strength exam: Left Upper Extremity: 5, Right Upper Extremity: 5, Left Lower Extremity: 5, Right Lower Extremity: 5 - Psychiatric Exam Psychiatric exam: Agitated - Skin Skin Exam: Normal Color Assessment and Plan - Assessment and Plan (Free Text) Assessment: 62 yo female from a halfway, with hx of DM II, schizophrenia and HTN; initially admitted for sepsis and pneumonia. Pt was started on vancomycin, zosyn and zithromax IV. During the admission, the pt was found to be bradycardic and became unresponsive. A Code Blue was called for suspected Pulseless Electrical Activity; compressions done ,was achieved after 3 rounds of epinephrine. She was then intubated and placed on mechanical ventilation and transferred to ICU. When weaned of sedation and extubated, mental status changes appreciated per family when compared to her baseline. She was initated on 25mg Clozapine with slow titration as per Dr. Skinner. Other acute issues are currently resolved-- Sepsis, UTI, JOSHUA resolved. Plan: 1. Altered Mental Status -Agitated today. Slight improvements over weekend in terms of mentation, pt more alert, spoke 1-2 words with family. Not at baseline as per family. Pt is usually verbal and higher functioning at halfway. -Uncertain Etiology: May be Toxic Metabolic Encephalopathy (seizures, cardiac arrest, sepsis) vs Antipscyhotic med withdrawal -Neurology consulted:Likely toxic metabolic encephalopathy likely due to cardaic arrest, repeat MRI ordered (Dr. Keller) -Psychiatry consulted: Pt has hx of Schitophrenia on Clozapine. Started on Clozapine at low dose with gradual increase and close monitoring of WBC count. Dr. Skinner -MRI of Brain (08/14)- no signs of Stroke nor Encephalitis -There was concern for Viral Encephalitis during her hospital stay and she received empiric treatment with IV Acyclovir; Lumbar puncture unremarkable and Cx negative -1:1 sitter for pt's saftey -Haldol 5mg prn for agitation -C/W Vimpat and Depafor Seizures; Keppra discontinued as per Neurology -C/W Lexapro 10mg daily, Clozapine 25mg daily, and Depakote -F/U MRI w/o contrast 2. Sepsis 2/2 Pneumonia -Resolved -Afebrile, no leukocytosis -Bcx, Tracheoaspiration no growth -Ucx: Yeast -Completed course of Azithromycin (6days), Vancomycin (7days), Zosyn (12 days) ,Rocephin (4days), Flucanozole (6 days) 2. Electrolyte imbalance -Hypokalemia- resolved, 3.8 today -Hypernatremia-improved, 149 today -3.9 today, resolved -f/u AM BMP 3. JOSHUA -Resolved -Cr 0.8 this morning (down from 1.4) -C/W Maintenance fluids; LR at 75cc/hr 4. Hypertension -Elevated in 170's systolic this morning while agitated. Will monitor and consider adding Losartan (home medication) -cont Lasix, Amlodipine, Coreg -c/w monitoring BPs 5. DM -Hypoglycemic in 50's, not eating well. Will reduce Levemir to 25units SC HS -c/w Insulin lispro correction scale -c/w Januvia -c/w Metformin 6. Anasarca -improving -IV lasix daily 9.Hypothyrodism -Chronic, uncontrolled -Levothyroxine 50mcg daily 10. Schizophrenia -Chronic -c/w clozapine 25 mg PO daily, to be titrated weekly by psychiatry 12. DVT prophylaxis -Lovenox 40mg SC QD -SCDs 13. Code Status -full code <Baylee Garcia - Last Filed: 08/24/18 17:30> Objective - Vital Signs/Intake and Output Vital Signs (last 24 hours): Temp Pulse Resp BP Pulse Ox 98.3 F 80 18 172/85 H 100 08/24/18 16:12 08/24/18 16:12 08/24/18 16:12 08/24/18 16:12 08/24/18 16:12 Intake and Output: 08/24/18 08/24/18 06:59 18:59 Intake Total 1160 2100 Output Total 400 Balance 760 2100 - Medications Medications: Current Medications Acetaminophen (Tylenol 325mg Tab) 650 mg PO Q6 PRN PRN Reason: Fever >100.4 F Last Admin: 08/05/18 05:35 Dose: 650 mg Acetaminophen (Tylenol 650mg/20.3ml Solution Ud) 650 mg PO Q6 PRN PRN Reason: Temperature Last Admin: 08/18/18 11:22 Dose: 650 mg Albuterol/Ipratropium (Duoneb 3 Mg/0.5 Mg (3 Ml) Ud) 3 ml INH RQ6 PRN PRN Reason: Shortness of Breath Last Admin: 08/24/18 00:07 Dose: 3 ml Amlodipine Besylate (Norvasc) 10 mg PO DAILY [facility] Last Admin: 08/24/18 08:24 Dose: 10 mg Atorvastatin Calcium (Lipitor) 10 mg PO HS [facility] Last Admin: 08/23/18 21:03 Dose: 10 mg Carvedilol (Coreg) 25 mg PO Q12 [facility] Last Admin: 08/24/18 08:20 Dose: 25 mg Clozapine (Clozaril) 25 mg PO HS [facility] Dextrose (Dextrose 50% Inj) 0 ml IV STAT PRN; Protocol PRN Reason: Hypoglycemia Protocol Dextrose (Glutose 15) 0 gm PO ONCE PRN; Protocol PRN Reason: Hypoglycemia Protocol Divalproex Sodium (Depakote Er(Once Daily)) 2,000 mg PO HS [facility] Last Admin: 08/23/18 21:03 Dose: 2,000 mg Enoxaparin Sodium (Lovenox) 40 mg SC DAILY [facility]; Protocol Last Admin: 08/24/18 08:24 Dose: 40 mg Escitalopram Oxalate (Lexapro) 10 mg PO HS [facility] Last Admin: 08/23/18 21:04 Dose: 10 mg Furosemide (Lasix) 20 mg IVP DAILY [facility] Last Admin: 08/24/18 08:23 Dose: 20 mg Glucagon (Glucagen Diagnostic Kit) 0 mg IM STAT PRN; Protocol PRN Reason: Hypoglycemia Protocol Haloperidol Lactate (Haldol) 5 mg IVP Q8 PRN PRN Reason: Agitation Last Admin: 08/24/18 10:39 Dose: 5 mg Lactated Ringer's (Lactated Ringer's) 1,000 mls @ 75 mls/hr IV .[id number] [facility] Last Admin: 08/24/18 11:55 Dose: 75 mls/hr Ibuprofen (Motrin Tab) 600 mg PO Q6 PRN PRN Reason: Fever >100.4 F Last Admin: 08/19/18 07:23 Dose: 600 mg Insulin Detemir (Levemir) 25 units SC [facility] Insulin Human Lispro (Humalog) 0 units SC [facility]; Protocol Last Admin: 08/24/18 16:43 Dose: 4 units Lacosamide (Vimpat) 100 mg PO Q12 [facility] Last Admin: 08/24/18 08:28 Dose: 100 mg Lactulose (Enulose) 20 gm PO Q12 PRN PRN Reason: Constipation Last Admin: 08/19/18 08:40 Dose: 20 gm Levothyroxine Sodium (Synthroid) 50 mcg PO DAILY@0630 [facility] Last Admin: 08/24/18 05:41 Dose: 50 mcg Metformin HCl (Glucophage) 850 mg PO BIDWM [facility] Last Admin: 08/24/18 16:42 Dose: 850 mg Multivitamins/Minerals (Therapeutic-M Tab) 1 tab PO DAILY [facility] Last Admin: 08/24/18 08:25 Dose: Not Given Pantoprazole Sodium (Protonix Ec Tab) 40 mg PO DAILY [facility] Last Admin: 08/24/18 08:25 Dose: 40 mg Sitagliptin Phosphate (Januvia) 100 mg PO [facility] Last Admin: 08/23/18 21:04 Dose: 100 mg - Labs Labs: 08/24/18 04:30 08/24/18 04:30 PT 12.2 Seconds (9.8-13.1) 08/04/18 00:30 INR 1.1 08/04/18 00:30 APTT 31.5 Seconds (25.6-37.1) 08/02/18 22:20 Attending/Attestation - Attestation I have personally seen and examined this patient.: Yes I have fully participated in the care of the patient.: Yes I have reviewed all pertinent clinical information, including history, physical exam and plan: Yes
[2018-08-24] MEDS: Enoxaparin 40 mg Syringe SC SCH (08:24)
[2018-08-24] MEDS: Multivitamin With Minerals Tab PO SCH (08:25)
[2018-08-24] MEDS: Pantoprazole 40 mg EC Tab PO SCH (08:25)
[2018-08-24] MEDS: Lacosamide 100 MG Tab PO SCH ×2 (08:28→20:26)
[2018-08-24] MEDS: Lactated Ringer's 1,000 ML IV SCH (11:55)
--- NOTE | 2018-08-24 15:46 | CP.PCM.CON ---
History of Present Illness - History of Present Illness History of Present Illness: follow up consult Patient is a 62 y/o female with previous psychiatric history of schizofrenia, HTN, DM sent from long-term for fall. In ED found to be febrile with elevated WBC count , bandemia,elevated lactic acid , pt was confused was intubated, pt has been on clozaril, but had a seizure so clozaril was stopped pt extubated , clozaril restarted as 25mg qhs, today on evaluation pt extremely confused, unable to answer questions, irritable, anxious with psychomotor agitation Past Patient History - Past Medical History & Family History Past Medical History?: Yes - Past Social History Smoking Status: Light Smoker < 10 Cigarettes Daily - CARDIAC Hx Hypercholesterolemia: Yes Hx Hypertension: Yes - PULMONARY Hx Respiratory Disorders: Yes Hx Pneumonia: Yes - NEUROLOGICAL Hx Neurological Disorder: No - HEENT Hx HEENT Problems: No - RENAL Hx Chronic Kidney Disease: No - ENDOCRINE/METABOLIC Hx Endocrine Disorders: Yes Hx Diabetes Mellitus Type 2: Yes Hx Hypothyroidism: Yes - HEMATOLOGICAL/ONCOLOGICAL Hx Blood Disorders: No Hx AIDS: No Hx Human Immunodeficiency Virus (HIV): No - INTEGUMENTARY Hx Dermatological Problems: No - MUSCULOSKELETAL/RHEUMATOLOGICAL Hx Musculoskeletal Disorders: No Hx Falls: Yes - GASTROINTESTINAL Hx Gastritis: Yes - GENITOURINARY/GYNECOLOGICAL Hx Genitourinary Disorders: No - PSYCHIATRIC Hx Psychophysiologic Disorder: Yes Hx Depression: Yes Hx Schizophrenia: Yes Hx Substance Use: No - SURGICAL HISTORY Hx Surgeries: No - ANESTHESIA Hx Anesthesia: No Meds Allergies/Adverse Reactions: Allergies Allergy/AdvReac Type Severity Reaction Status Date / Time No Known Allergies Allergy Verified 08/02/18 21:49 - Medications Medications: Current Medications Acetaminophen (Tylenol 325mg Tab) 650 mg PO Q6 PRN PRN Reason: Fever >100.4 F Last Admin: 08/05/18 05:35 Dose: 650 mg Acetaminophen (Tylenol 650mg/20.3ml Solution Ud) 650 mg PO Q6 PRN PRN Reason: Temperature Last Admin: 08/18/18 11:22 Dose: 650 mg Albuterol/Ipratropium (Duoneb 3 Mg/0.5 Mg (3 Ml) Ud) 3 ml INH RQ6 PRN PRN Reason: Shortness of Breath Last Admin: 08/24/18 00:07 Dose: 3 ml Amlodipine Besylate (Norvasc) 10 mg PO DAILY [facility] Last Admin: 08/24/18 08:24 Dose: 10 mg Atorvastatin Calcium (Lipitor) 10 mg PO HS [facility] Last Admin: 08/23/18 21:03 Dose: 10 mg Carvedilol (Coreg) 25 mg PO Q12 [facility] Last Admin: 08/24/18 08:20 Dose: 25 mg Clozapine (Clozaril) 25 mg PO HS [facility] Dextrose (Dextrose 50% Inj) 0 ml IV STAT PRN; Protocol PRN Reason: Hypoglycemia Protocol Dextrose (Glutose 15) 0 gm PO ONCE PRN; Protocol PRN Reason: Hypoglycemia Protocol Divalproex Sodium (Depakote Er(Once Daily)) 2,000 mg PO HS [facility] Last Admin: 08/23/18 21:03 Dose: 2,000 mg Enoxaparin Sodium (Lovenox) 40 mg SC DAILY [facility]; Protocol Last Admin: 08/24/18 08:24 Dose: 40 mg Escitalopram Oxalate (Lexapro) 10 mg PO HS [facility] Last Admin: 08/23/18 21:04 Dose: 10 mg Furosemide (Lasix) 20 mg IVP DAILY [facility] Last Admin: 08/24/18 08:23 Dose: 20 mg Glucagon (Glucagen Diagnostic Kit) 0 mg IM STAT PRN; Protocol PRN Reason: Hypoglycemia Protocol Haloperidol Lactate (Haldol) 5 mg IVP Q8 PRN PRN Reason: Agitation Last Admin: 08/24/18 10:39 Dose: 5 mg Lactated Ringer's (Lactated Ringer's) 1,000 mls @ 75 mls/hr IV .[id number] [facility] Last Admin: 08/24/18 11:55 Dose: 75 mls/hr Ibuprofen (Motrin Tab) 600 mg PO Q6 PRN PRN Reason: Fever >100.4 F Last Admin: 08/19/18 07:23 Dose: 600 mg Insulin Detemir (Levemir) 25 units SC HS [facility] Insulin Human Lispro (Humalog) 0 units SC [facility]; Protocol Last Admin: 08/24/18 11:54 Dose: Not Given Lacosamide (Vimpat) 100 mg PO Q12 [facility] Last Admin: 08/24/18 08:28 Dose: 100 mg Lactulose (Enulose) 20 gm PO Q12 PRN PRN Reason: Constipation Last Admin: 08/19/18 08:40 Dose: 20 gm Levothyroxine Sodium (Synthroid) 50 mcg PO DAILY@0630 [facility] Last Admin: 08/24/18 05:41 Dose: 50 mcg Metformin HCl (Glucophage) 850 mg PO BIDWM [facility] Last Admin: 08/24/18 08:23 Dose: 850 mg Multivitamins/Minerals (Therapeutic-M Tab) 1 tab PO DAILY [facility] Last Admin: 08/24/18 08:25 Dose: Not Given Pantoprazole Sodium (Protonix Ec Tab) 40 mg PO DAILY [facility] Last Admin: 08/24/18 08:25 Dose: 40 mg Sitagliptin Phosphate (Januvia) 100 mg PO HS [facility] Last Admin: 08/23/18 21:04 Dose: 100 mg Results - Vital Signs Recent Vital Signs: Last Vital Signs Temp 98.2 F 08/24/18 08:30 Pulse 77 08/24/18 08:30 Resp 20 08/24/18 08:30 BP 174/86 H 08/24/18 08:30 Pulse Ox 95 08/24/18 08:30 - Labs Result Diagrams: 08/24/18 04:30 08/24/18 04:30 Labs: Laboratory Results - last 24 hr 08/23/18 08/23/18 08/24/18 16:24 21:09 04:30 WBC 4.9 RBC 3.56 L Hgb 9.4 L Hct 29.6 L MCV 83.1 MCH 26.4 L MCHC 31.8 L RDW 17.4 H Plt Count 331 D Sodium Potassium Chloride Carbon Dioxide Anion Gap BUN Creatinine Est GFR ( Amer) Est GFR (Non-Af Amer) POC Glucose (mg/dL) 74 78 Random Glucose Calcium 08/24/18 08/24/18 08/24/18 04:30 05:40 06:43 WBC RBC Hgb Hct MCV MCH MCHC RDW Plt Count Sodium 149 H Potassium 3.8 Chloride 111 H Carbon Dioxide 27 Anion Gap 15 BUN 32 H Creatinine 0.8 Est GFR ( Amer) > 60 Est GFR (Non-Af Amer) > 60 POC Glucose (mg/dL) 60 L 123 H Random Glucose 62 L Calcium 9.4 08/24/18 11:33 WBC RBC Hgb Hct MCV MCH MCHC RDW Plt Count Sodium Potassium Chloride Carbon Dioxide Anion Gap BUN Creatinine Est GFR ( Amer) Est GFR (Non-Af Amer) POC Glucose (mg/dL) 86 Random Glucose Calcium Assessment & Plan - Assessment and Plan (Free Text) Assessment: rule out hyperactive delirium for medical reason schizophrenia rule out hyperactive catatonia Plan: recommend to continue with clozaril 25mg qhs, depakote level noted 87 start haldol 2mg bid , up till optimum dose of clozaril is reached
[2018-08-24] MEDS: Divalproex 500 mg ER (ONCE DAILY formulation) PO SCH (21:29)
[2018-08-24] MEDS ORDERED: Insulin Detemir 100 Units/ml Inj SC SCH (22:00)
[2018-08-25] MEDS: Lactated Ringer's 1,000 ML IV SCH ×3 (01:24→19:30)
[2018-08-25] MEDS: Levothyroxine 50 MCG TAB PO SCH (06:24)
[2018-08-25 06:33] LABS: BLOOD UREA NITROGEN 26 mg/dl (7-17); GFR NON-AFRICAN AMERICAN 56
[2018-08-25 06:34] LABS: CALCIUM 10.1 mg/dL (8.4-10.2)
--- NOTE | 2018-08-25 06:58 | CP.PCM.PN ---
<Renetta Kunz - Last Filed: 08/25/18 13:08> Subjective - Date & Time of Evaluation Date of Evaluation: 08/25/18 Time of Evaluation: 09:00 - Subjective Subjective: Pt seen and examined this morning. Seen sitting up in bed, calm and smiling. Still non verbal but occasional will follow commands. Objective - Vital Signs/Intake and Output Vital Signs (last 24 hours): Temp Pulse Resp BP Pulse Ox 98.1 F 75 19 175/80 H 99 08/25/18 02:07 08/25/18 02:07 08/25/18 02:07 08/25/18 02:07 08/25/18 02:07 Intake and Output: 08/24/18 08/25/18 18:59 06:59 Intake Total 2100 550 Balance 2100 550 - Medications Medications: Current Medications Acetaminophen (Tylenol 325mg Tab) 650 mg PO Q6 PRN PRN Reason: Fever >100.4 F Last Admin: 08/05/18 05:35 Dose: 650 mg Acetaminophen (Tylenol 650mg/20.3ml Solution Ud) 650 mg PO Q6 PRN PRN Reason: Temperature Last Admin: 08/18/18 11:22 Dose: 650 mg Albuterol/Ipratropium (Duoneb 3 Mg/0.5 Mg (3 Ml) Ud) 3 ml INH RQ6 PRN PRN Reason: Shortness of Breath Last Admin: 08/24/18 00:07 Dose: 3 ml Amlodipine Besylate (Norvasc) 10 mg PO DAILY COUNT [facility]CLUD[facility] Last Admin: 08/24/18 08:24 Dose: 10 mg Atorvastatin Calcium (Lipitor) 10 mg PO HS COUNT [facility]CLUD[facility] Last Admin: 08/24/18 21:22 Dose: 10 mg Carvedilol (Coreg) 25 mg PO Q12 COUNT [facility]CLUD[facility] Last Admin: 08/24/18 20:19 Dose: 25 mg Clozapine (Clozaril) 25 mg PO HS COUNT [facility]CLUD[facility] Last Admin: 08/24/18 21:23 Dose: 25 mg Dextrose (Dextrose 50% Inj) 0 ml IV STAT PRN; Protocol PRN Reason: Hypoglycemia Protocol Dextrose (Glutose 15) 0 gm PO ONCE PRN; Protocol PRN Reason: Hypoglycemia Protocol Divalproex Sodium (Depakote Er(Once Daily)) 2,000 mg PO [facility] Last Admin: 08/24/18 21:29 Dose: 2,000 mg Enoxaparin Sodium (Lovenox) 40 mg SC DAILY COUNT INCLUDES [facility]; Protocol Last Admin: 08/24/18 08:24 Dose: 40 mg Escitalopram Oxalate (Lexapro) 10 mg PO HS COUNT [facility]CLUD[facility] Last Admin: 08/24/18 21:22 Dose: 10 mg Furosemide (Lasix) 20 mg IVP DAILY COUNT [facility]CLUD[facility] Last Admin: 08/24/18 08:23 Dose: 20 mg Glucagon (Glucagen Diagnostic Kit) 0 mg IM STAT PRN; Protocol PRN Reason: Hypoglycemia Protocol Haloperidol Lactate (Haldol) 5 mg IVP Q8 PRN PRN Reason: Agitation Last Admin: 08/24/18 10:39 Dose: 5 mg Lactated Ringer's (Lactated Ringer's) 1,000 mls @ 75 mls/hr IV .[id number] COUNT INCLUDES [facility] Last Admin: 08/25/18 06:24 Dose: Not Given Ibuprofen (Motrin Tab) 600 mg PO Q6 PRN PRN Reason: Fever >100.4 F Last Admin: 08/19/18 07:23 Dose: 600 mg Insulin Detemir (Levemir) 25 units SC [facility] Last Admin: 08/24/18 21:41 Dose: 25 units Insulin Human Lispro (Humalog) 0 units SC [facility]; Protocol Last Admin: 08/24/18 21:41 Dose: Not Given Lacosamide (Vimpat) 100 mg PO Q12 COUNT [facility]CLUD[facility] Last Admin: 08/24/18 20:26 Dose: 100 mg Lactulose (Enulose) 20 gm PO Q12 PRN PRN Reason: Constipation Last Admin: 08/19/18 08:40 Dose: 20 gm Levothyroxine Sodium (Synthroid) 50 mcg PO DAILY@0630 COUNT [facility]CLUDES [facility] Last Admin: 08/25/18 06:24 Dose: 50 mcg Losartan Potassium (Cozaar) 50 mg PO DAILY COUNT [facility]CLUD[facility] Metformin HCl (Glucophage) 850 mg PO BIDWM COUNT INCLUDES [facility] Last Admin: 08/24/18 16:42 Dose: 850 mg Multivitamins/Minerals (Therapeutic-M Tab) 1 tab PO DAILY COUNT [facility]CLUDES [facility] Last Admin: 08/24/18 08:25 Dose: Not Given Pantoprazole Sodium (Protonix Ec Tab) 40 mg PO DAILY COUNT [facility]CLUD[facility] Last Admin: 08/24/18 08:25 Dose: 40 mg Sitagliptin Phosphate (Januvia) 100 mg PO HS [facility] Last Admin: 08/24/18 21:23 Dose: 100 mg - Labs Labs: 08/24/18 04:30 08/25/18 05:30 PT 12.2 Seconds (9.8-13.1) 08/04/18 00:30 INR 1.1 08/04/18 00:30 APTT 31.5 Seconds (25.6-37.1) 08/02/18 22:20 - Constitutional Appears: Non-toxic - Head Exam Head Exam: NORMAL INSPECTION - Eye Exam Eye Exam: Normal appearance. absent: Nystagmus - ENT Exam ENT Exam: Mucous Membranes Moist - Respiratory Exam Respiratory Exam: Clear to Ausculation Bilateral. absent: Rales, Wheezes - Cardiovascular Exam Cardiovascular Exam: REGULAR RHYTHM, +S1, +S2. absent: Murmur - GI/Abdominal Exam GI & Abdominal Exam: Distended, Soft. absent: Tenderness - Extremities Exam Extremities Exam: Normal Inspection. absent: Pedal Edema - Neurological Exam Neurological Exam: Alert, Awake. absent: Motor Sensory Deficit Neuro motor strength exam: Left Upper Extremity: 5, Right Upper Extremity: 5, Left Lower Extremity: 5, Right Lower Extremity: 5 - Psychiatric Exam Psychiatric exam: Normal Mood. absent: Agitated, Anxious Assessment and Plan - Assessment and Plan (Free Text) Assessment: 62 yo female from a retirement, with hx of DM II, schizophrenia and HTN; initially admitted for sepsis and pneumonia. Pt was started on vancomycin, zosyn and zithromax IV. During the admission, the pt was found to be bradycardic and became unresponsive. A Code Blue was called for suspected Pulseless Electrical Activity; compressions done ,was achieved after 3 rounds of epinephrine. She was then intubated and placed on mechanical ventilation and transferred to ICU. When weaned of sedation and extubated, mental status changes appreciated per family when compared to her baseline. She was initiated on 25mg Clozapine with slow titration as per Dr. Skinner. Other acute issues are currently resolved-- Sepsis, UTI, JOSHUA resolved. Plan: 1. Altered Mental Status -More calm today. Slight improvements over weekend in terms of mentation, pt more alert, spoke 1-2 words with family. Not at baseline as per family. Pt is usually verbal and higher functioning at retirement. -Uncertain Etiology: May be Toxic Metabolic Encephalopathy (seizures, cardiac arrest, sepsis) vs Antipscyhotic med withdrawal -Neurology consulted:Likely toxic metabolic encephalopathy likely due to cardaic arrest, repeat MRI ordered (Dr. Keller) -Psychiatry consulted: Pt has hx of Schitophrenia on Clozapine. Started on Clozapine at low dose with gradual increase and close monitoring of WBC count. Dr. Skinner -MRI of Brain (08/14)- no signs of Stroke nor Encephalitis -There was concern for Viral Encephalitis during her hospital stay and she received empiric treatment with IV Acyclovir; Lumbar puncture unremarkable and Cx negative -1:1 sitter for pt's saftey -Haldol 5mg prn for agitation. Will consider scheduled haldol as recommended by Dr. Skinner but pt appears calm today. -C/W Vimpat and Depafor Seizures; Keppra discontinued as per Neurology -C/W Lexapro 10mg daily, Clozapine 25mg daily, and Depakote -F/U MRI w/o contrast-not completed yet 2. Sepsis 2/2 Pneumonia -Resolved -Afebrile, no leukocytosis -Bcx, Tracheoaspiration no growth -Ucx: Yeast -Completed course of Azithromycin (6days), Vancomycin (7days), Zosyn (12 days) ,Rocephin (4days), Flucanozole (6 days) 2. Electrolyte imbalance -Hypokalemia- resolved, 4.1 today -Hypernatremia-improved, 147 today -3.9 today, resolved -f/u AM BMP 3. JOSHUA -Resolved -Cr 0.8 this morning (down from 1.4) -C/W Maintenance fluids; LR at 75cc/hr 4. Hypertension -Elevated in 170's systolic this morning while agitated. Losartan 50mg po daily started today (pt's home med) -cont Lasix, Amlodipine, Coreg -c/w monitoring BPs 5. DM - Was having hypoglycemic episodes yesterday but better controlled after Levemir reduced to 25units SC HS -c/w Insulin lispro correction scale -c/w Januvia -c/w Metformin 6. Anasarca -improving -IV lasix daily 9.Hypothyrodism -Chronic, uncontrolled -Levothyroxine 50mcg daily 10. Schizophrenia -Chronic -c/w clozapine 25 mg PO daily, to be titrated weekly by psychiatry 12. DVT prophylaxis -Lovenox 40mg SC QD -SCDs -Ambulating 13. Deconditioning -PT and OT ordered 14. Code Status -full code <Baylee Garcia - Last Filed: 08/25/18 16:58> Objective - Vital Signs/Intake and Output Vital Signs (last 24 hours): Temp Pulse Resp BP Pulse Ox 99 F 68 18 117/59 L 98 08/25/18 16:33 08/25/18 16:33 08/25/18 16:33 08/25/18 16:33 08/25/18 16:33 Intake and Output: 08/25/18 08/25/18 06:59 18:59 Intake Total 550 Balance 550 - Medications Medications: Current Medications Acetaminophen (Tylenol 325mg Tab) 650 mg PO Q6 PRN PRN Reason: Fever >100.4 F Last Admin: 08/05/18 05:35 Dose: 650 mg Acetaminophen (Tylenol 650mg/20.3ml Solution Ud) 650 mg PO Q6 PRN PRN Reason: Temperature Last Admin: 08/18/18 11:22 Dose: 650 mg Albuterol/Ipratropium (Duoneb 3 Mg/0.5 Mg (3 Ml) Ud) 3 ml INH RQ6 PRN PRN Reason: Shortness of Breath Last Admin: 08/24/18 00:07 Dose: 3 ml Amlodipine Besylate (Norvasc) 10 mg PO DAILY COUNT [facility]CLUDES [facility] Last Admin: 08/25/18 10:25 Dose: 10 mg Atorvastatin Calcium (Lipitor) 10 mg PO HS COUNT [facility]CLUDES [facility] Last Admin: 08/24/18 21:22 Dose: 10 mg Carvedilol (Coreg) 25 mg PO Q12 COUNT INCLUDES [facility] Last Admin: 08/25/18 10:22 Dose: 25 mg Clozapine (Clozaril) 25 mg PO HS COUNT [facility]CLUD[facility] Last Admin: 08/24/18 21:23 Dose: 25 mg Dextrose (Dextrose 50% Inj) 0 ml IV STAT PRN; Protocol PRN Reason: Hypoglycemia Protocol Last Admin: 08/25/18 16:44 Dose: 50 ml Dextrose (Glutose 15) 0 gm PO ONCE PRN; Protocol PRN Reason: Hypoglycemia Protocol Divalproex Sodium (Depakote Er(Once Daily)) 2,000 mg PO [facility] Last Admin: 08/24/18 21:29 Dose: 2,000 mg Enoxaparin Sodium (Lovenox) 40 mg SC DAILY COUNT INCLUDES [facility]; Protocol Last Admin: 08/25/18 10:24 Dose: 40 mg Escitalopram Oxalate (Lexapro) 10 mg PO HS COUNT INCLUDES [facility] Last Admin: 08/24/18 21:22 Dose: 10 mg Furosemide (Lasix) 20 mg IVP DAILY COUNT INCLUDES [facility] Last Admin: 08/25/18 10:25 Dose: 20 mg Glucagon (Glucagen Diagnostic Kit) 0 mg IM STAT PRN; Protocol PRN Reason: Hypoglycemia Protocol Lactated Ringer's (Lactated Ringer's) 1,000 mls @ 75 mls/hr IV .[id number] COUNT INCLUDES [facility] Last Admin: 08/25/18 06:24 Dose: Not Given Ibuprofen (Motrin Tab) 600 mg PO Q6 PRN PRN Reason: Fever >100.4 F Last Admin: 08/19/18 07:23 Dose: 600 mg Insulin Detemir (Levemir) 10 units SC HS COUNT INCLUDES [facility] Insulin Human Lispro (Humalog) 0 units SC [facility] COUNT INCLUDES [facility]; Protocol Last Admin: 08/25/18 16:45 Dose: Not Given Lacosamide (Vimpat) 100 mg PO Q12 COUNT [facility]CLUDES [facility] Lactulose (Enulose) 20 gm PO Q12 PRN PRN Reason: Constipation Last Admin: 08/19/18 08:40 Dose: 20 gm Levothyroxine Sodium (Synthroid) 50 mcg PO DAILY@0630 COUNT INCLUDES [facility] Last Admin: 08/25/18 06:24 Dose: 50 mcg Losartan Potassium (Cozaar) 50 mg PO DAILY COUNT INCLUDES [facility] Last Admin: 08/25/18 10:23 Dose: 50 mg Multivitamins/Minerals (Therapeutic-M Tab) 1 tab PO DAILY COUNT INCLUDES [facility] Last Admin: 08/25/18 10:26 Dose: 1 tab Pantoprazole Sodium (Protonix Ec Tab) 40 mg PO DAILY COUNT INCLUDES [facility] Last Admin: 08/25/18 10:26 Dose: 40 mg - Labs Labs: 08/24/18 04:30 08/25/18 05:30 PT 12.2 Seconds (9.8-13.1) 08/04/18 00:30 INR 1.1 08/04/18 00:30 APTT 31.5 Seconds (25.6-37.1) 08/02/18 22:20 Attending/Attestation - Attestation I have personally seen and examined this patient.: Yes I have fully participated in the care of the patient.: Yes I have reviewed all pertinent clinical information, including history, physical exam and plan: Yes Notes (Text): 08/25/18 16:54 Additional : Episode of Hypoglycemia - decrease Levemir to 10 units SQ q hs - d/c Metformin and Januvia AMS likely Toxic Metabolic Encephalopathy and also compounded by Psych Disorder - rpt MRI of brain as rec by neurology -Psych consulted- rec slow titration of Clozaril up
[2018-08-25] MEDS: Enoxaparin 40 mg Syringe SC SCH (10:24)
[2018-08-25] MEDS: Pantoprazole 40 mg EC Tab PO SCH (10:26)
[2018-08-25] MEDS: Multivitamin With Minerals Tab PO SCH (10:26)
[2018-08-25] MEDS: Insulin Lispro (humaLOG) 100 Units/ml Inj SC SCH ×4 (10:27→23:10)
[2018-08-25] MEDS: Lacosamide 100 MG Tab PO SCH (12:38)
--- NOTE | 2018-08-25 16:46 | MRI ---
Date of service: 08/25/2018 PROCEDURE: MRI BRAIN WITHOUT CONTRAST HISTORY: continued encephalopathy COMPARISON: 08/14/2018. TECHNIQUE: Multiplanar, multisequence MR images of the brain were obtained without intravenous contrast enhancement. FINDINGS: HEMORRHAGE: None DWI: No evidence of an acute or early subacute infarction. BRAIN PARENCHYMA: There are minimal chronic microangiopathic changes. There is no mass, mass effect or abnormal extra-axial fluid collection. There is no territorial infarction. The midline sagittal structures are normal. VENTRICLES: There is moderate age advanced global parenchymal volume loss and proportionate enlargement of the ventricles and cortical sulci. CRANIUM: There is normal bone marrow signal pattern. There is mild hyperostosis frontalis interna. ORBITS: Grossly unremarkable. PARANASAL SINUSES/MASTOIDS: The paranasal sinuses are predominantly clear. Large right and small left pleural effusions. VASCULAR SYSTEM: There are normal signal voids in the larger intracranial arteries. OTHER FINDINGS: None. IMPRESSION: No acute intracranial abnormality. Minimal chronic microangiopathic changes and moderate age advanced global parenchymal volume loss. Large right and small left mastoid effusions
[2018-08-25] MEDS: Lacosamide 50 MG Tab PO SCH (21:54)
[2018-08-25] MEDS: Divalproex 500 mg ER (ONCE DAILY formulation) PO SCH (21:57)
[2018-08-25] MEDS: Insulin Detemir 100 Units/ml Inj SC SCH (23:18)
[2018-08-26] MEDS: Levothyroxine 50 MCG TAB PO SCH (06:21)
[2018-08-26] MEDS: Insulin Lispro (humaLOG) 100 Units/ml Inj SC SCH ×4 (06:43→22:43)
[2018-08-26] MEDS: Enoxaparin 40 mg Syringe SC SCH (09:18)
[2018-08-26] MEDS: Multivitamin With Minerals Tab PO SCH (09:19)
[2018-08-26] MEDS: Pantoprazole 40 mg EC Tab PO SCH (09:19)
[2018-08-26] MEDS: Lacosamide 50 MG Tab PO SCH ×2 (09:22→21:57)
--- NOTE | 2018-08-26 10:01 | CP.PCM.PN ---
<Renetta Kunz - Last Filed: 08/26/18 10:09> Subjective - Date & Time of Evaluation Date of Evaluation: 08/26/18 Time of Evaluation: 08:00 - Subjective Subjective: Pt seen and examined this morning. Seen intermittently agitated, taking clothes off and moving legs. Makes eye contact and tracks but non verbal. Able to follow commands minimally. Objective - Vital Signs/Intake and Output Vital Signs (last 24 hours): Temp Pulse Resp BP Pulse Ox 97.5 F L 66 20 174/81 H 98 08/26/18 08:37 08/26/18 09:18 08/26/18 08:37 08/26/18 09:18 08/26/18 08:37 - Medications Medications: Current Medications Acetaminophen (Tylenol 325mg Tab) 650 mg PO Q6 PRN PRN Reason: Fever >100.4 F Last Admin: 08/05/18 05:35 Dose: 650 mg Acetaminophen (Tylenol 650mg/20.3ml Solution Ud) 650 mg PO Q6 PRN PRN Reason: Temperature Last Admin: 08/18/18 11:22 Dose: 650 mg Albuterol/Ipratropium (Duoneb 3 Mg/0.5 Mg (3 Ml) Ud) 3 ml INH RQ6 PRN PRN Reason: Shortness of Breath Last Admin: 08/24/18 00:07 Dose: 3 ml Amlodipine Besylate (Norvasc) 10 mg PO DAILY [facility] Last Admin: 08/26/18 09:18 Dose: 10 mg Atorvastatin Calcium (Lipitor) 10 mg PO HS [facility] Last Admin: 08/25/18 21:55 Dose: 10 mg Carvedilol (Coreg) 25 mg PO Q12 [facility] Last Admin: 08/26/18 09:14 Dose: 25 mg Clozapine (Clozaril) 25 mg PO HS [facility] Last Admin: 08/25/18 21:56 Dose: 25 mg Dextrose (Dextrose 50% Inj) 0 ml IV STAT PRN; Protocol PRN Reason: Hypoglycemia Protocol Last Admin: 08/25/18 16:44 Dose: 50 ml Dextrose (Glutose 15) 0 gm PO ONCE PRN; Protocol PRN Reason: Hypoglycemia Protocol Divalproex Sodium (Depakote Er(Once Daily)) 2,000 mg PO HS [facility] Last Admin: 08/25/18 21:57 Dose: 2,000 mg Enoxaparin Sodium (Lovenox) 40 mg SC DAILY [facility]; Protocol Last Admin: 08/26/18 09:18 Dose: 40 mg Escitalopram Oxalate (Lexapro) 10 mg PO HS [facility] Last Admin: 08/25/18 21:55 Dose: 10 mg Furosemide (Lasix) 20 mg IVP DAILY [facility] Last Admin: 08/26/18 09:16 Dose: 20 mg Glucagon (Glucagen Diagnostic Kit) 0 mg IM STAT PRN; Protocol PRN Reason: Hypoglycemia Protocol Lactated Ringer's (Lactated Ringer's) 1,000 mls @ 75 mls/hr IV .[id number] [facility] Last Admin: 08/25/18 19:30 Dose: Not Given Ibuprofen (Motrin Tab) 600 mg PO Q6 PRN PRN Reason: Fever >100.4 F Last Admin: 08/19/18 07:23 Dose: 600 mg Insulin Detemir (Levemir) 10 units SC [facility] Last Admin: 08/25/18 23:18 Dose: 10 u Insulin Human Lispro (Humalog) 0 units SC [facility]; Protocol Last Admin: 08/26/18 06:43 Dose: Not Given Lacosamide (Vimpat) 100 mg PO Q12 [facility] Last Admin: 08/26/18 09:22 Dose: 100 mg Lactulose (Enulose) 20 gm PO Q12 PRN PRN Reason: Constipation Last Admin: 08/19/18 08:40 Dose: 20 gm Levothyroxine Sodium (Synthroid) 50 mcg PO DAILY@0630 [facility] Last Admin: 08/26/18 06:21 Dose: 50 mcg Losartan Potassium (Cozaar) 50 mg PO DAILY [facility] Last Admin: 08/26/18 09:15 Dose: 50 mg Multivitamins/Minerals (Therapeutic-M Tab) 1 tab PO DAILY [facility] Last Admin: 08/26/18 09:19 Dose: 1 tab Pantoprazole Sodium (Protonix Ec Tab) 40 mg PO DAILY [facility] Last Admin: 08/26/18 09:19 Dose: 40 mg - Labs Labs: 08/24/18 04:30 08/25/18 05:30 PT 12.2 Seconds (9.8-13.1) 08/04/18 00:30 INR 1.1 08/04/18 00:30 APTT 31.5 Seconds (25.6-37.1) 08/02/18 22:20 - Constitutional Appears: Well, Non-toxic - Head Exam Head Exam: NORMAL INSPECTION - Eye Exam Eye Exam: Normal appearance - Respiratory Exam Respiratory Exam: Clear to Ausculation Bilateral. absent: Rales, Wheezes - Cardiovascular Exam Cardiovascular Exam: REGULAR RHYTHM, +S1, +S2. absent: Murmur - GI/Abdominal Exam GI & Abdominal Exam: Soft, Normal Bowel Sounds. absent: Tenderness - Extremities Exam Extremities Exam: Normal Inspection. 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 Pt was started on vancomycin, zosyn and zithromax IV. During the admission, the pt was found to be bradycardic and became unresponsive. A Code Blue was called for suspected Pulseless Electrical Activity; compressions done ,was achieved after 3 rounds of epinephrine. She was then intubated and placed on mechanical ventilation and transferred to ICU. When weaned of sedation and extubated, mental status changes appreciated per family when compared to her baseline. She was initiated on 25mg Clozapine with slow titration as per Dr. Skinner. Other acute issues are currently resolved-- Sepsis, U TI, JOSHUA resolved. Plan: 1. Altered Mental Status - Slight improvements in neurological state- intermittently agitated, usually calm. -Uncertain Etiology: May be Toxic Metabolic Encephalopathy (s/p seizures, cardiac arrest, sepsis) vs Antipscyhotic med withdrawal -Psychiatry consulted: Pt has hx of Schitophrenia on Clozapine. Started on Clozapine at low dose with gradual increase and close monitoring of WBC count. Dr. Skinner. First Clozapine dose started on 08/24. Due for next increase dose on 08/31. -Neurology consulted:Likely toxic metabolic encephalopathy likely due to cardaic arrest, repeat MRI ordered. MRI report (08/25)--no acute intracranial pathology -There was concern for Viral Encephalitis during her hospital stay and she received empiric treatment with IV Acyclovir; Lumbar puncture unremarkable and Cx negative -1:1 sitter for pt's saftey -Will consider scheduled haldol as recommended by Dr. Skinner but pt appears calm. -C/W Vimpat and Depakote for Seizures -C/W Lexapro 10mg daily, Clozapine 25mg daily 2. Sepsis 2/2 Pneumonia -Resolved -Afebrile, no leukocytosis -Bcx, Tracheoaspiration no growth -Ucx: Yeast -Completed course of Azithromycin (6days), Vancomycin (7days), Zosyn (12 days) ,Rocephin (4days), Flucanozole (6 days) 3. JOSHUA -Resolved -Cr 0.8 4. Hypertension -Still elevated, 170's systolic. Started Losartan 50mg (home med) yesterday. Will increase to Losartan 100mg daily. -cont Losartan, Amlodipine, and coreg -c/w monitoring BPs 5. DM -No new hypoglycemic episodes, Levemir reduced from 25 units to 10units. -c/w Insulin Lispro correction scale -c/w Januvia -c/w Metformin 6. Anasarca -improving -PO Lasix 20mg daily 9.Hypothyrodism -Chronic, uncontrolled -Levothyroxine 50mcg daily 10. Schizophrenia -Chronic -c/w clozapine 25 mg PO daily, to be titrated weekly by psychiatry. Will increase to 50mg on 08/31. Weekly CBC 12. DVT prophylaxis -Lovenox 40mg SC QD -SCDs -Ambulating 13. Deconditioning -PT: Recommended subacute rehab on discharge; needs help with trunk mobility and weight bearing 14. Code Status -full code <Baylee Garcia - Last Filed: 08/26/18 18:47> Objective - Vital Signs/Intake and Output Vital Signs (last 24 hours): Temp Pulse Resp BP Pulse Ox 98.2 F 70 18 162/78 H 97 08/26/18 16:07 08/26/18 16:07 08/26/18 16:07 08/26/18 16:07 08/26/18 16:07 - Medications Medications: Current Medications Acetaminophen (Tylenol 325mg Tab) 650 mg PO Q6 PRN PRN Reason: Fever >100.4 F Last Admin: 08/05/18 05:35 Dose: 650 mg Acetaminophen (Tylenol 650mg/20.3ml Solution Ud) 650 mg PO Q6 PRN PRN Reason: Temperature Last Admin: 08/18/18 11:22 Dose: 650 mg Albuterol/Ipratropium (Duoneb 3 Mg/0.5 Mg (3 Ml) Ud) 3 ml INH RQ6 PRN PRN Reason: Shortness of Breath Last Admin: 08/24/18 00:07 Dose: 3 ml Amlodipine Besylate (Norvasc) 10 mg PO DAILY [facility] Last Admin: 08/26/18 09:18 Dose: 10 mg Atorvastatin Calcium (Lipitor) 10 mg PO HS [facility] Last Admin: 08/25/18 21:55 Dose: 10 mg Carvedilol (Coreg) 25 mg PO Q12 [facility] Last Admin: 08/26/18 09:14 Dose: 25 mg Clozapine (Clozaril) 25 mg PO HS [facility] Last Admin: 08/25/18 21:56 Dose: 25 mg Dextrose (Dextrose 50% Inj) 0 ml IV STAT PRN; Protocol PRN Reason: Hypoglycemia Protocol Last Admin: 08/25/18 16:44 Dose: 50 ml Dextrose (Glutose 15) 0 gm PO ONCE PRN; Protocol PRN Reason: Hypoglycemia Protocol Divalproex Sodium (Depakote Er(Once Daily)) 2,000 mg PO HS [facility] Last Admin: 08/25/18 21:57 Dose: 2,000 mg Enoxaparin Sodium (Lovenox) 40 mg SC DAILY [facility]; Protocol Last Admin: 08/26/18 09:18 Dose: 40 mg Escitalopram Oxalate (Lexapro) 10 mg PO HS [facility] Last Admin: 08/25/18 21:55 Dose: 10 mg Furosemide (Lasix) 20 mg IVP DAILY [facility] Last Admin: 08/26/18 09:16 Dose: 20 mg Glucagon (Glucagen Diagnostic Kit) 0 mg IM STAT PRN; Protocol PRN Reason: Hypoglycemia Protocol Ibuprofen (Motrin Tab) 600 mg PO Q6 PRN PRN Reason: Fever >100.4 F Last Admin: 08/19/18 07:23 Dose: 600 mg Insulin Detemir (Levemir) 10 units SC HS [facility] Last Admin: 08/25/18 23:18 Dose: 10 u Insulin Human Lispro (Humalog) 0 units SC ACHS [facility]; Protocol Last Admin: 08/26/18 16:35 Dose: 2 units Lacosamide (Vimpat) 100 mg PO Q12 [facility] Last Admin: 08/26/18 09:22 Dose: 100 mg Lactulose (Enulose) 20 gm PO Q12 PRN PRN Reason: Constipation Last Admin: 08/19/18 08:40 Dose: 20 gm Levothyroxine Sodium (Synthroid) 50 mcg PO DAILY@0630 [facility] Last Admin: 08/26/18 06:21 Dose: 50 mcg Losartan Potassium (Cozaar) 100 mg PO DAILY [facility] Multivitamins/Minerals (Therapeutic-M Tab) 1 tab PO DAILY [facility] Last Admin: 08/26/18 09:19 Dose: 1 tab - Labs Labs: 08/24/18 04:30 08/25/18 05:30 PT 12.2 Seconds (9.8-13.1) 08/04/18 00:30 INR 1.1 08/04/18 00:30 APTT 31.5 Seconds (25.6-37.1) 08/02/18 22:20 Attending/Attestation - Attestation I have personally seen and examined this patient.: Yes I have fully participated in the care of the patient.: Yes I have reviewed all pertinent clinical information, including history, physical exam and plan: Yes Notes (Text): Additional : AMS likely Toxic Metabolic Encephalopathy and also compounded by Psych Disorder - rpt MRI of brain as rec by Neurology- no acute CVA -Psych consulted- rec slow titration of Clozaril up - Clozaril was started on 08/22 at 25,g daily - discussed with Dr skinner will come back to see pt and if no agranulocytosis will up Clozaril dose DM type II Episode of Hypoglycemia - decrease Levemir to 10 units SQ q hs - d/c Metformin and Januvia
--- NOTE | 2018-08-26 13:01 | CP.PCM.PN ---
Subjective - Date & Time of Evaluation Date of Evaluation: 08/26/18 Time of Evaluation: 08:00 - Subjective Subjective: afebrile very confused NAD Objective - Vital Signs/Intake and Output Vital Signs (last 24 hours): Temp Pulse Resp BP Pulse Ox 97.5 F L 66 20 174/81 H 98 08/26/18 08:37 08/26/18 09:18 08/26/18 08:37 08/26/18 09:18 08/26/18 08:37 - Medications Medications: Current Medications Acetaminophen (Tylenol 325mg Tab) 650 mg PO Q6 PRN PRN Reason: Fever >100.4 F Last Admin: 08/05/18 05:35 Dose: 650 mg Acetaminophen (Tylenol 650mg/20.3ml Solution Ud) 650 mg PO Q6 PRN PRN Reason: Temperature Last Admin: 08/18/18 11:22 Dose: 650 mg Albuterol/Ipratropium (Duoneb 3 Mg/0.5 Mg (3 Ml) Ud) 3 ml INH RQ6 PRN PRN Reason: Shortness of Breath Last Admin: 08/24/18 00:07 Dose: 3 ml Amlodipine Besylate (Norvasc) 10 mg PO DAILY [facility] Last Admin: 08/26/18 09:18 Dose: 10 mg Atorvastatin Calcium (Lipitor) 10 mg PO HS [facility] Last Admin: 08/25/18 21:55 Dose: 10 mg Carvedilol (Coreg) 25 mg PO Q12 [facility] Last Admin: 08/26/18 09:14 Dose: 25 mg Clozapine (Clozaril) 25 mg PO HS [facility] Last Admin: 08/25/18 21:56 Dose: 25 mg Dextrose (Dextrose 50% Inj) 0 ml IV STAT PRN; Protocol PRN Reason: Hypoglycemia Protocol Last Admin: 08/25/18 16:44 Dose: 50 ml Dextrose (Glutose 15) 0 gm PO ONCE PRN; Protocol PRN Reason: Hypoglycemia Protocol Divalproex Sodium (Depakote Er(Once Daily)) 2,000 mg PO [facility] Last Admin: 08/25/18 21:57 Dose: 2,000 mg Enoxaparin Sodium (Lovenox) 40 mg SC DAILY [facility]; Protocol Last Admin: 08/26/18 09:18 Dose: 40 mg Escitalopram Oxalate (Lexapro) 10 mg PO [facility] Last Admin: 08/25/18 21:55 Dose: 10 mg Furosemide (Lasix) 20 mg IVP DAILY [facility] Last Admin: 08/26/18 09:16 Dose: 20 mg Glucagon (Glucagen Diagnostic Kit) 0 mg IM STAT PRN; Protocol PRN Reason: Hypoglycemia Protocol Ibuprofen (Motrin Tab) 600 mg PO Q6 PRN PRN Reason: Fever >100.4 F Last Admin: 08/19/18 07:23 Dose: 600 mg Insulin Detemir (Levemir) 10 units SC HS [facility] Last Admin: 08/25/18 23:18 Dose: 10 u Insulin Human Lispro (Humalog) 0 units SC ACHS [facility]; Protocol Last Admin: 08/26/18 06:43 Dose: Not Given Lacosamide (Vimpat) 100 mg PO Q12 [facility] Last Admin: 08/26/18 09:22 Dose: 100 mg Lactulose (Enulose) 20 gm PO Q12 PRN PRN Reason: Constipation Last Admin: 08/19/18 08:40 Dose: 20 gm Levothyroxine Sodium (Synthroid) 50 mcg PO DAILY@0630 [facility] Last Admin: 08/26/18 06:21 Dose: 50 mcg Losartan Potassium (Cozaar) 100 mg PO DAILY [facility] Multivitamins/Minerals (Therapeutic-M Tab) 1 tab PO DAILY [facility] Last Admin: 08/26/18 09:19 Dose: 1 tab - Labs Labs: 08/24/18 04:30 08/25/18 05:30 PT 12.2 Seconds (9.8-13.1) 08/04/18 00:30 INR 1.1 08/04/18 00:30 APTT 31.5 Seconds (25.6-37.1) 08/02/18 22:20 - Constitutional Appears: Non-toxic - Head Exam Head Exam: NORMOCEPHALIC - Eye Exam Eye Exam: absent: Scleral icterus - ENT Exam ENT Exam: Mucous Membranes Dry - Neck Exam Neck Exam: absent: Lymphadenopathy - Respiratory Exam Respiratory Exam: Decreased Breath Sounds - Cardiovascular Exam Cardiovascular Exam: REGULAR RHYTHM - GI/Abdominal Exam GI & Abdominal Exam: Distended - Rectal Exam Rectal Exam: Deferred - Exam Exam: NORMAL INSPECTION - Extremities Exam Extremities Exam: absent: Pedal Edema - Back Exam Back Exam: absent: CVA tenderness (L), CVA tenderness (R) - Neurological Exam Neurological Exam: Altered Assessment and Plan (1) Pneumonia Status: Acute (2) Severe sepsis Status: Acute - Assessment and Plan (Free Text) Assessment: supportive care off antibiotics
[2018-08-26] MEDS: Divalproex 500 mg ER (ONCE DAILY formulation) PO SCH (21:54)
[2018-08-26] MEDS: Insulin Detemir 100 Units/ml Inj SC SCH (22:46)
[2018-08-27] MEDS: Levothyroxine 50 MCG TAB PO SCH (06:24)
[2018-08-27 06:25] LABS: HEMOGLOBIN 9.5 g/dL (12.0-16.0); MEAN CELL VOLUME 82.8 fl (81.0-99.0); MEAN CORPUSCULAR HEMOGLOBIN 27.2 pg (27.0-31.0); MEAN CORPUSCULAR HGB CONC 32.9 g/dL (33.0-37.0); RBC 3.48 Mil/uL (3.80-5.20); RED CELL DISTRIBUTION WIDTH 17.6 % (11.5-14.5); WHITE BLOOD COUNT 6.3 K/uL (4.8-10.8)
[2018-08-27 06:34] LABS: CALCIUM 9.5 mg/dL (8.4-10.2)
[2018-08-27] MEDS: Insulin Lispro (humaLOG) 100 Units/ml Inj SC SCH ×4 (06:48→22:19)
--- NOTE | 2018-08-27 08:30 | CP.PCM.PN ---
Subjective - Date & Time of Evaluation Date of Evaluation: 08/27/18 Time of Evaluation: 08:00 - Subjective Subjective: Pt seen and examined this morning. Pt seen lying in bed no acute distress. Abdomen distended, Bladder scan notable for retained urine, olivera placed and 900+ output noted. Reassessed pt 1 hour after olivera placed and abdomen was soft and non tender. Objective - Vital Signs/Intake and Output Vital Signs (last 24 hours): Temp Pulse Resp BP Pulse Ox 97.9 F 62 20 189/79 H 100 08/27/18 08:03 08/27/18 08:03 08/27/18 08:03 08/27/18 08:03 08/27/18 08:03 - Medications Medications: Current Medications Acetaminophen (Tylenol 325mg Tab) 650 mg PO Q6 PRN PRN Reason: Fever >100.4 F Last Admin: 08/05/18 05:35 Dose: 650 mg Acetaminophen (Tylenol 650mg/20.3ml Solution Ud) 650 mg PO Q6 PRN PRN Reason: Temperature Last Admin: 08/18/18 11:22 Dose: 650 mg Albuterol/Ipratropium (Duoneb 3 Mg/0.5 Mg (3 Ml) Ud) 3 ml INH RQ6 PRN PRN Reason: Shortness of Breath Last Admin: 08/24/18 00:07 Dose: 3 ml Amlodipine Besylate (Norvasc) 10 mg PO DAILY [facility] Last Admin: 08/26/18 09:18 Dose: 10 mg Atorvastatin Calcium (Lipitor) 10 mg PO HS [facility] Last Admin: 08/26/18 21:54 Dose: 10 mg Carvedilol (Coreg) 25 mg PO Q12 [facility] Last Admin: 08/26/18 21:53 Dose: 25 mg Clozapine (Clozaril) 25 mg PO HS [facility] Last Admin: 08/26/18 21:54 Dose: 25 mg Dextrose (Dextrose 50% Inj) 0 ml IV STAT PRN; Protocol PRN Reason: Hypoglycemia Protocol Last Admin: 08/25/18 16:44 Dose: 50 ml Dextrose (Glutose 15) 0 gm PO ONCE PRN; Protocol PRN Reason: Hypoglycemia Protocol Divalproex Sodium (Depakote Er(Once Daily)) 2,000 mg PO HS [facility] Last Admin: 08/26/18 21:54 Dose: 2,000 mg Enoxaparin Sodium (Lovenox) 40 mg SC DAILY [facility]; Protocol Last Admin: 08/26/18 09:18 Dose: 40 mg Escitalopram Oxalate (Lexapro) 10 mg PO HS [facility] Last Admin: 08/26/18 22:46 Dose: 10 mg Furosemide (Lasix) 20 mg PO DAILY [facility] Glucagon (Glucagen Diagnostic Kit) 0 mg IM STAT PRN; Protocol PRN Reason: Hypoglycemia Protocol Ibuprofen (Motrin Tab) 600 mg PO Q6 PRN PRN Reason: Fever >100.4 F Last Admin: 08/19/18 07:23 Dose: 600 mg Insulin Detemir (Levemir) 10 units SC HS [facility] Last Admin: 08/26/18 22:46 Dose: 10 u Insulin Human Lispro (Humalog) 0 units SC [facility]; Protocol Last Admin: 08/27/18 06:48 Dose: Not Given Lacosamide (Vimpat) 100 mg PO Q12 [facility] Last Admin: 08/26/18 21:57 Dose: 100 mg Lactulose (Enulose) 20 gm PO Q12 PRN PRN Reason: Constipation Last Admin: 08/19/18 08:40 Dose: 20 gm Levothyroxine Sodium (Synthroid) 50 mcg PO DAILY@0630 [facility] Last Admin: 08/27/18 06:24 Dose: 50 mcg Losartan Potassium (Cozaar) 100 mg PO DAILY [facility] Multivitamins/Minerals (Therapeutic-M Tab) 1 tab PO DAILY [facility] Last Admin: 08/26/18 09:19 Dose: 1 tab - Labs Labs: 08/27/18 05:55 08/27/18 06:05 PT 12.2 Seconds (9.8-13.1) 08/04/18 00:30 INR 1.1 08/04/18 00:30 APTT 31.5 Seconds (25.6-37.1) 08/02/18 22:20 - Constitutional Appears: No Acute Distress - Head Exam Head Exam: NORMAL INSPECTION - Eye Exam Eye Exam: Normal appearance - ENT Exam ENT Exam: Mucous Membranes Moist - Neck Exam Neck Exam: Full ROM - Respiratory Exam Respiratory Exam: Clear to Ausculation Bilateral. absent: Rales, Wheezes - Cardiovascular Exam Cardiovascular Exam: REGULAR RHYTHM, +S1, +S2 - GI/Abdominal Exam GI & Abdominal Exam: Distended, Soft, Tenderness (mild), Normal Bowel Sounds. absent: Guarding - Extremities Exam Extremities Exam: Normal Capillary Refill. absent: Pedal Edema - Neurological Exam Neurological Exam: Alert (follwos commands), Awake - Psychiatric Exam Psychiatric exam: Flat Affect. absent: Anxious - Skin Skin Exam: Normal Color Assessment and Plan - Assessment and Plan (Free Text) Assessment: 62 yo female from a snf, with hx of DM II, schizophrenia and HTN; initially admitted for sepsis and pneumonia. Pt was started on vancomycin, zosyn and zithromax IV. During the admission, the pt was found to be bradycardic and became unresponsive. A Code Blue was called for suspected Pulseless Electrical Activity; compressions done ,was achieved after 3 rounds of epinephrine. She was then intubated and placed on mechanical ventilation and transferred to ICU. When weaned of sedation and extubated, mental status changes appreciated per family when compared to her baseline. She was initiated on 25mg Clozapine with slow titration as per Dr. Skinnre. Other acute issues are currently resolved-- Sepsis, UTI, JOSHUA resolved. Plan: 1. Altered Mental Status - Slight improvements in neurological state- intermittently agitated, usually calm. -Uncertain Etiology: May be Toxic Metabolic Encephalopathy (s/p seizures, cardiac arrest, sepsis) vs Antipscyhotic med withdrawal -Psychiatry consulted: Pt has hx of Schitophrenia on Clozapine. Started on Clozapine at low dose with gradual increase and close monitoring of WBC count. Dr. Skinner. First Clozapine dose started on 08/24. Dose increased to 50mg PO today by Dr. Skinner. Next dose increase is 09/03. -Neurology consulted:Likely toxic metabolic encephalopathy likely due to cardaic arrest, repeat MRI ordered. MRI report (08/25)--no acute intracranial pathology -There was concern for Viral Encephalitis during her hospital stay and she received empiric treatment with IV Acyclovir; Lumbar puncture unremarkable and Cx negative -1:1 sitter for pt's saftey -Will consider scheduled haldol as recommended by Dr. Skinner but pt appears calm. -C/W Vimpat and Depakote for Seizures. Will check Vimpat level -C/W Lexapro 10mg daily, Clozapine 25mg daily 2. Hypertension -Still elevated, 180's systolic -Start Hydralazine 10mg TID Today -cont Losartan, Amlodipine, and coreg -c/w monitoring BPs 3. JOSHUA -May be post renal/ obstructive uropathy in light of urinary retention. -Urinary Retention; Likely side effect of psych medication; Olivera placed, will attempt bladder trials; Flomax started today -1.3 today -Lasix held -Follow BMP 4. Sepsis 2/2 Pneumonia -Resolved -Afebrile, no leukocytosis -Bcx, Tracheoaspiration no growth -Ucx: Yeast -Completed course of Azithromycin (6days), Vancomycin (7days), Zosyn (12 days) ,Rocephin (4days), Flucanozole (6 days) 5. DM -No new hypoglycemic episodes, Levemir reduced from 25 units to 10units. -c/w Insulin Lispro correction scale -c/w Januvia -Metformin held in light of JOSHUA 6. Anasarca -improving -PO Lasix 20mg daily; held today in light of JOSHUA. 9.Hypothyrodism -Chronic, uncontrolled -Levothyroxine 50mcg daily 10. Schizophrenia -Chronic -c/w clozapine 25 mg PO daily increase to 50mg PO daily by Dr. Skinner. Will titrate weekly w/ CBC. 12. DVT prophylaxis -Lovenox 40mg SC QD -SCDs -Ambulating 13. Deconditioning -PT: Recommended subacute rehab on discharge; needs help with trunk mobility and weight bearing 14. Code Status -full code
[2018-08-27] MEDS: Enoxaparin 40 mg Syringe SC SCH (10:12)
[2018-08-27] MEDS: Multivitamin With Minerals Tab PO SCH (10:13)
--- NOTE | 2018-08-27 10:45 | CP.PCM.CON ---
History of Present Illness - History of Present Illness History of Present Illness: follow up consult Patient is a 62 y/o female with PMH schizofrenia, HTN, DM sent from nursing home for fall. In ED found to be febrile with elevated WBC count , bandemia,elevated lactic acid pt on evaluation today, calmer, more cooperative with care, tries to communicate by nodding the head, oriented to person, reduced psychomotor agitation denied perceptual disturbances, denied S/H I Past Patient History - Past Medical History & Family History Past Medical History?: Yes - Past Social History Smoking Status: Light Smoker < 10 Cigarettes Daily - CARDIAC Hx Hypercholesterolemia: Yes Hx Hypertension: Yes - PULMONARY Hx Respiratory Disorders: Yes Hx Pneumonia: Yes - NEUROLOGICAL Hx Neurological Disorder: No - HEENT Hx HEENT Problems: No - RENAL Hx Chronic Kidney Disease: No - ENDOCRINE/METABOLIC Hx Endocrine Disorders: Yes Hx Diabetes Mellitus Type 2: Yes Hx Hypothyroidism: Yes - HEMATOLOGICAL/ONCOLOGICAL Hx Blood Disorders: No Hx AIDS: No Hx Human Immunodeficiency Virus (HIV): No - INTEGUMENTARY Hx Dermatological Problems: No - MUSCULOSKELETAL/RHEUMATOLOGICAL Hx Musculoskeletal Disorders: No Hx Falls: Yes - GASTROINTESTINAL Hx Gastritis: Yes - GENITOURINARY/GYNECOLOGICAL Hx Genitourinary Disorders: No - PSYCHIATRIC Hx Psychophysiologic Disorder: Yes Hx Depression: Yes Hx Schizophrenia: Yes Hx Substance Use: No - SURGICAL HISTORY Hx Surgeries: No - ANESTHESIA Hx Anesthesia: No Meds Allergies/Adverse Reactions: Allergies Allergy/AdvReac Type Severity Reaction Status Date / Time No Known Allergies Allergy Verified 08/02/18 21:49 - Medications Medications: Current Medications Acetaminophen (Tylenol 325mg Tab) 650 mg PO Q6 PRN PRN Reason: Fever >100.4 F Last Admin: 08/05/18 05:35 Dose: 650 mg Acetaminophen (Tylenol 650mg/20.3ml Solution Ud) 650 mg PO Q6 PRN PRN Reason: Temperature Last Admin: 08/18/18 11:22 Dose: 650 mg Albuterol/Ipratropium (Duoneb 3 Mg/0.5 Mg (3 Ml) Ud) 3 ml INH RQ6 PRN PRN Reason: Shortness of Breath Last Admin: 08/24/18 00:07 Dose: 3 ml Amlodipine Besylate (Norvasc) 10 mg PO DAILY [facility] Last Admin: 08/27/18 10:12 Dose: 10 mg Atorvastatin Calcium (Lipitor) 10 mg PO HS [facility] Last Admin: 08/26/18 21:54 Dose: 10 mg Carvedilol (Coreg) 25 mg PO Q12 [facility] Last Admin: 08/27/18 10:11 Dose: 25 mg Clozapine (Clozaril) 50 mg PO [facility] Dextrose (Dextrose 50% Inj) 0 ml IV STAT PRN; Protocol PRN Reason: Hypoglycemia Protocol Last Admin: 08/25/18 16:44 Dose: 50 ml Dextrose (Glutose 15) 0 gm PO ONCE PRN; Protocol PRN Reason: Hypoglycemia Protocol Divalproex Sodium (Depakote Er(Once Daily)) 2,000 mg PO [facility] Last Admin: 08/26/18 21:54 Dose: 2,000 mg Enoxaparin Sodium (Lovenox) 40 mg SC DAILY [facility]; Protocol Last Admin: 08/27/18 10:12 Dose: 40 mg Escitalopram Oxalate (Lexapro) 10 mg PO [facility] Last Admin: 08/26/18 22:46 Dose: 10 mg Furosemide (Lasix) 20 mg PO DAILY [facility] Last Admin: 08/27/18 10:13 Dose: Not Given Glucagon (Glucagen Diagnostic Kit) 0 mg IM STAT PRN; Protocol PRN Reason: Hypoglycemia Protocol Ibuprofen (Motrin Tab) 600 mg PO Q6 PRN PRN Reason: Fever >100.4 F Last Admin: 08/19/18 07:23 Dose: 600 mg Insulin Detemir (Levemir) 10 units SC [facility] Last Admin: 08/26/18 22:46 Dose: 10 u Insulin Human Lispro (Humalog) 0 units SC [facility]; Protocol Last Admin: 08/27/18 06:48 Dose: Not Given Lacosamide (Vimpat) 100 mg PO Q12 [facility] Last Admin: 08/26/18 21:57 Dose: 100 mg Lactulose (Enulose) 20 gm PO Q12 PRN PRN Reason: Constipation Last Admin: 08/19/18 08:40 Dose: 20 gm Levothyroxine Sodium (Synthroid) 50 mcg PO DAILY@0630 [facility] Last Admin: 08/27/18 06:24 Dose: 50 mcg Losartan Potassium (Cozaar) 100 mg PO DAILY [facility] Last Admin: 08/27/18 10:12 Dose: 100 mg Multivitamins/Minerals (Therapeutic-M Tab) 1 tab PO DAILY [facility] Last Admin: 08/27/18 10:13 Dose: 1 tab Results - Vital Signs Recent Vital Signs: Last Vital Signs Temp 97.9 F 08/27/18 08:03 Pulse 62 08/27/18 10:12 Resp 20 08/27/18 08:03 BP 189/79 H 08/27/18 10:12 Pulse Ox 100 08/27/18 08:03 - Labs Result Diagrams: 08/27/18 05:55 08/27/18 06:05 Labs: Laboratory Results - last 24 hr 08/26/18 08/26/18 08/26/18 11:22 15:42 22:25 WBC RBC Hgb Hct MCV MCH MCHC RDW Plt Count Sodium Potassium Chloride Carbon Dioxide Anion Gap BUN Creatinine Est GFR ( Amer) Est GFR (Non-Af Amer) POC Glucose (mg/dL) 179 H 174 H 223 H Random Glucose Calcium 08/27/18 08/27/18 08/27/18 05:55 05:58 06:05 WBC 6.3 RBC 3.48 L Hgb 9.5 L Hct 28.8 L MCV 82.8 MCH 27.2 MCHC 32.9 L RDW 17.6 H Plt Count 286 Sodium 146 Potassium 3.9 Chloride 109 H Carbon Dioxide 27 Anion Gap 14 BUN 44 H Creatinine 1.3 H Est GFR ( Amer) 50 Est GFR (Non-Af Amer) 42 POC Glucose (mg/dL) 77 Random Glucose 89 Calcium 9.5 Assessment & Plan - Assessment and Plan (Free Text) Assessment: schizoaffective disorder Plan: WBC noted 6.9 clozaril will be increased to 50mg qhs
[2018-08-27] MEDS: Lacosamide 50 MG Tab PO SCH ×2 (15:26→22:01)
[2018-08-27] MEDS: Divalproex 500 mg ER (ONCE DAILY formulation) PO SCH (22:03)
[2018-08-27] MEDS: Insulin Detemir 100 Units/ml Inj SC SCH (22:20)
[2018-08-28] MEDS: Levothyroxine 50 MCG TAB PO SCH (06:25)
[2018-08-28 06:29] LABS: BASO # 0.1 K/uL (0.0-0.2); BASO % 1.4 % (0.0-2.0); EOS # 0.1 K/uL (0.0-0.7); EOS % 1.8 % (0.0-4.0); LYMPH # 1.4 K/uL (1.0-4.3); LYMPH % 27.6 % (20.0-40.0); MEAN CELL VOLUME 83.8 fl (81.0-99.0); MEAN CORPUSCULAR HEMOGLOBIN 27.4 pg (27.0-31.0); MEAN CORPUSCULAR HGB CONC 32.7 g/dL (33.0-37.0); MEAN PLATELET VOLUME 9.6 fl (7.2-11.7); MONO # 0.4 K/uL (0.0-0.8); MONO % 7.6 % (0.0-10.0); NEUT # 3.1 K/uL (1.8-7.0); NEUT % 61.6 % (50.0-75.0); NRBC % 0.1 % (0.0-0.0); RBC 3.65 Mil/uL (3.80-5.20); RED CELL DISTRIBUTION WIDTH 18.3 % (11.5-14.5); WHITE BLOOD COUNT 5.1 K/uL (4.8-10.8)
[2018-08-28 07:23] LABS: CALCIUM 10.2 mg/dL (8.4-10.2)
[2018-08-28] MEDS: Enoxaparin 40 mg Syringe SC SCH (09:16)
[2018-08-28] MEDS: Multivitamin With Minerals Tab PO SCH (09:22)
[2018-08-28] MEDS: Sodium Chloride 0.45% 1,000 ML IV SCH (09:23)
[2018-08-28] MEDS: Insulin Lispro (humaLOG) 100 Units/ml Inj SC SCH ×4 (09:24→21:34)
[2018-08-28] MEDS: Lacosamide 50 MG Tab PO SCH ×2 (09:25→22:10)
--- NOTE | 2018-08-28 11:58 | CP.PCM.PN ---
Subjective - Date & Time of Evaluation Date of Evaluation: 08/28/18 Time of Evaluation: 08:00 - Subjective Subjective: Pt seen and examined this morning. Seen lying in bed with eyes open. Calm, no signs of agitation. Says hello back occasional. Does not follow commands. Olivera in place with 800cc of light yellow urine. Objective - Vital Signs/Intake and Output Vital Signs (last 24 hours): Temp Pulse Resp BP Pulse Ox 97.7 F 63 20 166/74 H 98 08/28/18 08:41 08/28/18 09:23 08/28/18 08:41 08/28/18 09:23 08/28/18 08:41 Intake and Output: 08/28/18 08/28/18 06:59 18:59 Output Total 1500 500 Balance -1500 -500 - Medications Medications: Current Medications Acetaminophen (Tylenol 325mg Tab) 650 mg PO Q6 PRN PRN Reason: Fever >100.4 F Last Admin: 08/05/18 05:35 Dose: 650 mg Acetaminophen (Tylenol 650mg/20.3ml Solution Ud) 650 mg PO Q6 PRN PRN Reason: Temperature Last Admin: 08/18/18 11:22 Dose: 650 mg Albuterol/Ipratropium (Duoneb 3 Mg/0.5 Mg (3 Ml) Ud) 3 ml INH RQ6 PRN PRN Reason: Shortness of Breath Last Admin: 08/24/18 00:07 Dose: 3 ml Amlodipine Besylate (Norvasc) 10 mg PO DAILY [facility] Last Admin: 08/28/18 09:23 Dose: 10 mg Atorvastatin Calcium (Lipitor) 10 mg PO HS [facility] Last Admin: 08/27/18 22:03 Dose: 10 mg Carvedilol (Coreg) 25 mg PO Q12 [facility] Last Admin: 08/28/18 09:22 Dose: 25 mg Clozapine (Clozaril) 50 mg PO [facility] Last Admin: 08/27/18 22:02 Dose: 50 mg Dextrose (Dextrose 50% Inj) 0 ml IV STAT PRN; Protocol PRN Reason: Hypoglycemia Protocol Last Admin: 08/25/18 16:44 Dose: 50 ml Dextrose (Glutose 15) 0 gm PO ONCE PRN; Protocol PRN Reason: Hypoglycemia Protocol Divalproex Sodium (Depakote Er(Once Daily)) 2,000 mg PO [facility] Last Admin: 08/27/18 22:03 Dose: 2,000 mg Enoxaparin Sodium (Lovenox) 40 mg SC DAILY [facility]; Protocol Last Admin: 08/28/18 09:16 Dose: 40 mg Escitalopram Oxalate (Lexapro) 10 mg PO HS [facility] Last Admin: 08/27/18 22:03 Dose: 10 mg Furosemide (Lasix) 20 mg PO DAILY [facility] Last Admin: 08/27/18 10:13 Dose: Not Given Glucagon (Glucagen Diagnostic Kit) 0 mg IM STAT PRN; Protocol PRN Reason: Hypoglycemia Protocol Hydralazine HCl (Apresoline) 10 mg PO Q8@0000,0800,1600 [facility] Last Admin: 08/28/18 09:21 Dose: 10 mg Sodium Chloride (Sodium Chloride 0.45%) 1,000 mls @ 60 mls/hr IV .[id number] [facility] Stop: 08/29/18 08:14 Last Admin: 08/28/18 09:23 Dose: 60 mls/hr Ibuprofen (Motrin Tab) 600 mg PO Q6 PRN PRN Reason: Fever >100.4 F Last Admin: 08/19/18 07:23 Dose: 600 mg Insulin Detemir (Levemir) 10 units SC [facility] Last Admin: 08/27/18 22:20 Dose: 10 u Insulin Human Lispro (Humalog) 0 units SC [facility]; Protocol Last Admin: 08/28/18 09:24 Dose: 6 units Lacosamide (Vimpat) 100 mg PO Q12 [facility] Last Admin: 08/28/18 09:25 Dose: 100 mg Lactulose (Enulose) 20 gm PO Q12 PRN PRN Reason: Constipation Last Admin: 08/19/18 08:40 Dose: 20 gm Levothyroxine Sodium (Synthroid) 50 mcg PO DAILY@0630 [facility] Last Admin: 08/28/18 06:25 Dose: 50 mcg Losartan Potassium (Cozaar) 100 mg PO DAILY [facility] Last Admin: 08/28/18 09:17 Dose: 100 mg Multivitamins/Minerals (Therapeutic-M Tab) 1 tab PO DAILY [facility] Last Admin: 08/28/18 09:22 Dose: 1 tab Tamsulosin HCl (Flomax) 0.4 mg PO DAILY [facility] Stop: 08/29/18 09:01 Last Admin: 08/28/18 09:28 Dose: 0.4 mg - Labs Labs: 08/28/18 05:30 08/28/18 05:30 PT 12.2 Seconds (9.8-13.1) 08/04/18 00:30 INR 1.1 08/04/18 00:30 APTT 31.5 Seconds (25.6-37.1) 08/02/18 22:20 - Constitutional Appears: Non-toxic, No Acute Distress - Head Exam Head Exam: ATRAUMATIC - Eye Exam Eye Exam: Normal appearance - ENT Exam ENT Exam: Mucous Membranes Moist - Neck Exam Neck Exam: Full ROM - Respiratory Exam Respiratory Exam: Clear to Ausculation Bilateral. absent: Accessory Muscle Use, Rales - Cardiovascular Exam Cardiovascular Exam: REGULAR RHYTHM, +S1, +S2 - GI/Abdominal Exam GI & Abdominal Exam: Distended (mild (imrpoved since yesterday)), Soft, Normal Bowel Sounds. absent: Tenderness - Extremities Exam Extremities Exam: Normal Capillary Refill. absent: Calf Tenderness, Pedal Edema - Neurological Exam Neurological Exam: Alert, Awake - Psychiatric Exam Psychiatric exam: Flat Affect. absent: Anxious - Skin Skin Exam: Normal Color Assessment and Plan - Assessment and Plan (Free Text) Assessment: 62 yo female from a [facility], with hx of DM II, schizophrenia and HTN; initially admitted for sepsis and pneumonia. Pt was started on vancomycin, zosyn and zithromax IV. During the admission, the pt was found to be bradycardic and became unresponsive. A Code Blue was called for suspected Pulseless Electrical Activity; compressions done ,was achieved after 3 rounds of epinephrine. She was then intubated and placed on mechanical ventilation and transferred to ICU. When weaned of sedation and extubated, mental status changes appreciated per family when compared to her baseline. She was initiated on 25mg Clozapine with slow titration as per Dr. Skinner. Other acute issues are currently resolved-- Sepsis, UTI, JOSHUA resolved. Plan: 1. Altered Mental Status - Slight improvements in neurological state- intermittently agitated, usually calm. -Uncertain Etiology: May be Toxic Metabolic Encephalopathy (s/p seizures, cardiac arrest, sepsis) vs Antipscyhotic med withdrawal -Psychiatry consulted: Pt has hx of Schitophrenia on Clozapine. Started on Clozapine at low dose with gradual increase and close monitoring of WBC count. Dr. Skinner. First Clozapine dose started on 08/24. Dose increased to 50mg PO by Dr. Skinner. Next dose increase is 09/03. -Neurology consulted:Likely toxic metabolic encephalopathy likely due to cardaic arrest, repeat MRI ordered. MRI report (08/25)--no acute intracranial pathology -There was concern for Viral Encephalitis during her hospital stay and she received empiric treatment with IV Acyclovir; Lumbar puncture unremarkable and Cx negative -1:1 sitter for pt's saftey -Will consider scheduled haldol as recommended by Dr. Skinner but pt appears calm. -C/W Vimpat and Depakote for Seizures. Will check Vimpat level -C/W Lexapro 10mg daily, Clozapine 25mg daily 2. Hypertension -Improved, 160's sytolic -C/W Hydralazine, Losartan, Amlodipine, and coreg -c/w monitoring BPs 3. JOSHUA -Resolved, Cr 1.2 today -May be post renal/ obstructive uropathy in light of urinary retention. -Follow BMP 4. Hypernatremia, Hyperchloremia, Hyperphosphatemia -Na 153, Cl 110 -1/2 NS started at 60cc/hr -Likely effect of diuresing after relief of urinary retention, post olivera placement -Monitor BMP,Mg, Phos 5. Sepsis 2/2 Pneumonia -Resolved -Afebrile, no leukocytosis -Bcx, Tracheoaspiration no growth -Ucx: Yeast -Completed course of Azithromycin (6days), Vancomycin (7days), Zosyn (12 days) ,Rocephin (4days), Flucanozole (6 days) 6. DM -No new hypoglycemic episodes, Levemir reduced from 25 units to 10units. -c/w Insulin Lispro correction scale -c/w Januvia -Will continue Metformin 7. Anasarca -improving -PO Lasix 20mg daily; held today in light of JOSHUA. 8.Hypothyrodism -Chronic, uncontrolled -Levothyroxine 50mcg daily 9. Schizophrenia -Chronic -C/W 50mg PO daily. Order placed by Dr. Skinner only. Will titrate weekly w/ CBC. 10. DVT prophylaxis -Lovenox 40mg SC QD -SCDs -Ambulating 11. Deconditioning -PT: Recommended subacute rehab on discharge; needs help with trunk mobility and weight bearing 12. Code Status -full code
--- NOTE | 2018-08-28 12:05 | CP.PCM.PN ---
Subjective - Date & Time of Evaluation Date of Evaluation: 08/28/18 Time of Evaluation: 08:00 - Subjective Subjective: events noted will need VIRAL Objective - Vital Signs/Intake and Output Vital Signs (last 24 hours): Temp Pulse Resp BP Pulse Ox 97.7 F 63 20 166/74 H 98 08/28/18 08:41 08/28/18 09:23 08/28/18 08:41 08/28/18 09:23 08/28/18 08:41 Intake and Output: 08/28/18 08/28/18 06:59 18:59 Output Total 1500 500 Balance -1500 -500 - Medications Medications: Current Medications Acetaminophen (Tylenol 325mg Tab) 650 mg PO Q6 PRN PRN Reason: Fever >100.4 F Last Admin: 08/05/18 05:35 Dose: 650 mg Acetaminophen (Tylenol 650mg/20.3ml Solution Ud) 650 mg PO Q6 PRN PRN Reason: Temperature Last Admin: 08/18/18 11:22 Dose: 650 mg Albuterol/Ipratropium (Duoneb 3 Mg/0.5 Mg (3 Ml) Ud) 3 ml INH RQ6 PRN PRN Reason: Shortness of Breath Last Admin: 08/24/18 00:07 Dose: 3 ml Amlodipine Besylate (Norvasc) 10 mg PO DAILY [facility] Last Admin: 08/28/18 09:23 Dose: 10 mg Atorvastatin Calcium (Lipitor) 10 mg PO HS [facility] Last Admin: 08/27/18 22:03 Dose: 10 mg Carvedilol (Coreg) 25 mg PO Q12 [facility] Last Admin: 08/28/18 09:22 Dose: 25 mg Clozapine (Clozaril) 50 mg PO HS [facility] Last Admin: 08/27/18 22:02 Dose: 50 mg Dextrose (Dextrose 50% Inj) 0 ml IV STAT PRN; Protocol PRN Reason: Hypoglycemia Protocol Last Admin: 08/25/18 16:44 Dose: 50 ml Dextrose (Glutose 15) 0 gm PO ONCE PRN; Protocol PRN Reason: Hypoglycemia Protocol Divalproex Sodium (Depakote Er(Once Daily)) 2,000 mg PO HS [facility] Last Admin: 08/27/18 22:03 Dose: 2,000 mg Enoxaparin Sodium (Lovenox) 40 mg SC DAILY [facility]; Protocol Last Admin: 08/28/18 09:16 Dose: 40 mg Escitalopram Oxalate (Lexapro) 10 mg PO HS [facility] Last Admin: 08/27/18 22:03 Dose: 10 mg Furosemide (Lasix) 20 mg PO DAILY [facility] Last Admin: 08/27/18 10:13 Dose: Not Given Glucagon (Glucagen Diagnostic Kit) 0 mg IM STAT PRN; Protocol PRN Reason: Hypoglycemia Protocol Hydralazine HCl (Apresoline) 10 mg PO Q8@0000,0800,1600 [facility] Last Admin: 08/28/18 09:21 Dose: 10 mg Sodium Chloride (Sodium Chloride 0.45%) 1,000 mls @ 60 mls/hr IV .[id number] [facility] Stop: 08/29/18 08:14 Last Admin: 08/28/18 09:23 Dose: 60 mls/hr Ibuprofen (Motrin Tab) 600 mg PO Q6 PRN PRN Reason: Fever >100.4 F Last Admin: 08/19/18 07:23 Dose: 600 mg Insulin Detemir (Levemir) 10 units SC [facility] Last Admin: 08/27/18 22:20 Dose: 10 u Insulin Human Lispro (Humalog) 0 units SC [facility]; Protocol Last Admin: 08/28/18 09:24 Dose: 6 units Lacosamide (Vimpat) 100 mg PO Q12 [facility] Last Admin: 08/28/18 09:25 Dose: 100 mg Lactulose (Enulose) 20 gm PO Q12 PRN PRN Reason: Constipation Last Admin: 08/19/18 08:40 Dose: 20 gm Levothyroxine Sodium (Synthroid) 50 mcg PO DAILY@0630 [facility] Last Admin: 08/28/18 06:25 Dose: 50 mcg Losartan Potassium (Cozaar) 100 mg PO DAILY [facility] Last Admin: 08/28/18 09:17 Dose: 100 mg Multivitamins/Minerals (Therapeutic-M Tab) 1 tab PO DAILY [facility] Last Admin: 08/28/18 09:22 Dose: 1 tab Tamsulosin HCl (Flomax) 0.4 mg PO DAILY [facility] Stop: 08/29/18 09:01 Last Admin: 08/28/18 09:28 Dose: 0.4 mg - Labs Labs: 08/28/18 05:30 08/28/18 05:30 PT 12.2 Seconds (9.8-13.1) 10/30/18 00:30 INR 1.1 08/04/18 00:30 APTT 31.5 Seconds (25.6-37.1) 08/02/18 22:20 - Constitutional Appears: Non-toxic, Chronically Ill - Head Exam Head Exam: NORMOCEPHALIC - Eye Exam Eye Exam: absent: Scleral icterus - ENT Exam ENT Exam: Mucous Membranes Dry - Neck Exam Neck Exam: absent: Lymphadenopathy - Respiratory Exam Respiratory Exam: Decreased Breath Sounds - Cardiovascular Exam Cardiovascular Exam: REGULAR RHYTHM - GI/Abdominal Exam GI & Abdominal Exam: Distended - Rectal Exam Rectal Exam: Deferred - Exam Exam: NORMAL INSPECTION - Extremities Exam Extremities Exam: absent: Pedal Edema - Back Exam Back Exam: absent: CVA tenderness (L), CVA tenderness (R) - Neurological Exam Neurological Exam: Altered Assessment and Plan (1) Pneumonia Status: Acute (2) Severe sepsis Status: Acute - Assessment and Plan (Free Text) Assessment: cont rx as ordered
[2018-08-28] MEDS: Divalproex 500 mg ER (ONCE DAILY formulation) PO SCH (21:39)
[2018-08-28] MEDS: Insulin Detemir 100 Units/ml Inj SC SCH (22:03)
[2018-08-29] MEDS: Sodium Chloride 0.45% 1,000 ML IV SCH ×2 (01:44→18:46)
[2018-08-29] MEDS: Levothyroxine 50 MCG TAB PO SCH (05:40)
[2018-08-29 07:08] LABS: HEMOGLOBIN 9.3 g/dL (12.0-16.0); MEAN CELL VOLUME 85.9 fl (81.0-99.0); MEAN CORPUSCULAR HEMOGLOBIN 27.5 pg (27.0-31.0); RBC 3.39 Mil/uL (3.80-5.20); RED CELL DISTRIBUTION WIDTH 18.7 % (11.5-14.5)
[2018-08-29 07:22] LABS: BLOOD UREA NITROGEN 31 mg/dl (7-17); CALCIUM 9.5 mg/dL (8.4-10.2); GFR NON-AFRICAN AMERICAN > 60
--- NOTE | 2018-08-29 08:20 | CP.PCM.PN ---
Subjective - Date & Time of Evaluation Date of Evaluation: 08/29/18 Time of Evaluation: 12:49 - Subjective Subjective: Patient seen and examined at bedside this morning. There are no acute events overnight, NAD. Patient laying down in bed comfortably. Patient making eye contact and greets w/ hand shaking. Patient able to say "hi". 1:1 maintained at bedside Objective - Vital Signs/Intake and Output Vital Signs (last 24 hours): Temp Pulse Resp BP Pulse Ox 98.3 F 66 20 181/87 H 97 08/29/18 08:07 08/29/18 08:07 08/29/18 08:07 08/29/18 08:07 08/29/18 08:07 - Medications Medications: Current Medications Acetaminophen (Tylenol 325mg Tab) 650 mg PO Q6 PRN PRN Reason: Fever >100.4 F Last Admin: 08/05/18 05:35 Dose: 650 mg Acetaminophen (Tylenol 650mg/20.3ml Solution Ud) 650 mg PO Q6 PRN PRN Reason: Temperature Last Admin: 08/18/18 11:22 Dose: 650 mg Albuterol/Ipratropium (Duoneb 3 Mg/0.5 Mg (3 Ml) Ud) 3 ml INH RQ6 PRN PRN Reason: Shortness of Breath Last Admin: 08/24/18 00:07 Dose: 3 ml Amlodipine Besylate (Norvasc) 10 mg PO DAILY [facility] Last Admin: 08/28/18 09:23 Dose: 10 mg Atorvastatin Calcium (Lipitor) 10 mg PO HS [facility] Last Admin: 08/28/18 21:39 Dose: 10 mg Carvedilol (Coreg) 25 mg PO Q12 [facility] Last Admin: 08/28/18 21:39 Dose: 25 mg Clozapine (Clozaril) 50 mg PO HS [facility] Last Admin: 08/28/18 21:40 Dose: 50 mg Dextrose (Dextrose 50% Inj) 0 ml IV STAT PRN; Protocol PRN Reason: Hypoglycemia Protocol Last Admin: 08/25/18 16:44 Dose: 50 ml Dextrose (Glutose 15) 0 gm PO ONCE PRN; Protocol PRN Reason: Hypoglycemia Protocol Divalproex Sodium (Depakote Er(Once Daily)) 2,000 mg PO HS [facility] Last Admin: 08/28/18 21:39 Dose: 2,000 mg Enoxaparin Sodium (Lovenox) 40 mg SC DAILY [facility]; Protocol Last Admin: 08/28/18 09:16 Dose: 40 mg Escitalopram Oxalate (Lexapro) 10 mg PO HS [facility] Last Admin: 08/28/18 21:39 Dose: 10 mg Furosemide (Lasix) 20 mg PO DAILY [facility] Last Admin: 08/27/18 10:13 Dose: Not Given Glucagon (Glucagen Diagnostic Kit) 0 mg IM STAT PRN; Protocol PRN Reason: Hypoglycemia Protocol Hydralazine HCl (Apresoline) 10 mg PO Q8@0000,0800,1600 [facility] Last Admin: 08/29/18 00:38 Dose: 10 mg Ibuprofen (Motrin Tab) 600 mg PO Q6 PRN PRN Reason: Fever >100.4 F Last Admin: 08/19/18 07:23 Dose: 600 mg Insulin Detemir (Levemir) 10 units SC [facility] Last Admin: 08/28/18 22:03 Dose: 10 u Insulin Human Lispro (Humalog) 0 units SC [facility]; Protocol Last Admin: 08/28/18 21:34 Dose: Not Given Lacosamide (Vimpat) 100 mg PO Q12 [facility] Last Admin: 08/28/18 22:10 Dose: 100 mg Lactulose (Enulose) 20 gm PO Q12 PRN PRN Reason: Constipation Last Admin: 08/19/18 08:40 Dose: 20 gm Levothyroxine Sodium (Synthroid) 50 mcg PO DAILY@0630 [facility] Last Admin: 08/29/18 05:40 Dose: 50 mcg Losartan Potassium (Cozaar) 100 mg PO DAILY [facility] Last Admin: 08/28/18 09:17 Dose: 100 mg Metformin HCl (Glucophage) 850 mg PO BID [facility] Last Admin: 08/28/18 16:29 Dose: 850 mg Multivitamins/Minerals (Therapeutic-M Tab) 1 tab PO DAILY [facility] Last Admin: 08/28/18 09:22 Dose: 1 tab Tamsulosin HCl (Flomax) 0.4 mg PO DAILY [facility] Stop: 08/29/18 09:01 Last Admin: 08/28/18 09:28 Dose: 0.4 mg - Labs Labs: 08/29/18 05:30 08/29/18 05:30 PT 12.2 Seconds (9.8-13.1) 08/04/18 00:30 INR 1.1 08/04/18 00:30 APTT 31.5 Seconds (25.6-37.1) 08/02/18 22:20 - Constitutional Appears: Non-toxic, No Acute Distress - Head Exam Head Exam: NORMAL INSPECTION - Eye Exam Eye Exam: Normal appearance - ENT Exam ENT Exam: Mucous Membranes Moist - Respiratory Exam Respiratory Exam: Clear to Ausculation Bilateral. absent: Rales, Rhonchi, Wheezes, Respiratory Distress - Cardiovascular Exam Cardiovascular Exam: REGULAR RHYTHM, +S1, +S2 - GI/Abdominal Exam GI & Abdominal Exam: Soft, Normal Bowel Sounds. absent: Tenderness - Extremities Exam Extremities Exam: absent: Pedal Edema - Neurological Exam Neurological Exam: Alert, Awake. absent: Oriented x3 Additional comments: remains mostly non-verbal, can say "hi", makes eye contact, and is tracking - Psychiatric Exam Additional comments: in good spirits today - Skin Skin Exam: Dry, Normal Color Assessment and Plan - Assessment and Plan (Free Text) Assessment: 62 yo female from a [facility], with hx of DM II, schizophrenia and HTN; initially admitted for sepsis and pneumonia. Initial labs were significant for leukocytosis with bandemia; CXR showed atelectasis vs infiltrate and pt was started on vancomycin, zosyn and zithromax IV. During the admission, the pt was found to be bradycardic and became unresponsive. A Code Blue was called for suspected Pulseless Electrical Activity; compressions done ,was achieved after 3 rounds of epinephrine. She was then transferred to ICU. When weaned off sedation, mental status changes appreciated per family when compared to her baseline. Discussion to be held with daughter (next of kin) to establish power of sports attorney. Plan: 1. Altered Mental Status - improving but not at baseline as per family - empirically treated with IV Acyclovir; Lumbar puncture unremarkable and Cx negative - MRI of Brain - no signs of Stroke nor Encephalitis - likely toxic encephalopathy as per neurology - AMS may be due to Schizophrenia as antipsychotic medication was on hold. Started on Clozapine at low dose with gradual increase and close monitoring of WBC count. Psych on board. - C/W Depakote for Seizures - C/W Lexapro. Haldol prn - Procalcitonin 0.05 - LDH: 765 2. Electrolyte imbalance - Hypokalemia- resolved, 3.8 today - Hypernatremia-stable - f/u AM BMP 3. JOSHUA -resolved -Cr 0.8 this morning 4. Hypertension - uncontrolled - cont Lasix, Amlodipine, Coreg and Losartan - Hydralazine 10mg PO Q8h - clonopine 0.1mg Q12H started - c/w monitoring BPs 5. DM - c/w Iinsulin lispro correction scale - c/w Levemir 10 Units SC HS - c/w Januvia - c/w Metformin 6. s/p Cardio-Respiratory Arrest - s/p Code Blue (received 3 doses of epinephrine); unclear if real cardiac arrest - extubated, tolerating well 7. Localization-related (focal) (partial) symptomatic epilepsy - as per neuro due to pts infection and antipsychotic lowered seizure threshold; appear to have resolved now - cont Keppra 1000 mg Q12 - Clozapine discontinued 8. Sepsis 2/2 to Pneumonia, likely bacterial - resolved 9. Anasarca - improving - IV lasix given 10.Hypothyrodism -Chronic, uncontrolled -Levothyroxine 50mcg daily 11. Schizophrenia - Chronic - c/w clozapine 50 mg PO daily, to be titrated weekly by psychiatry - Home meds held for now - cont Depakote - Psych consulted- rec Lexapro and Risperdal 12. DVT prophylaxis - Lovenox 40mg SC QD - SCDs 13. Code Status - full code
[2018-08-29] MEDS: Multivitamin With Minerals Tab PO SCH (08:56)
[2018-08-29] MEDS: Lacosamide 50 MG Tab PO SCH ×2 (08:56→21:59)
[2018-08-29] MEDS: Enoxaparin 40 mg Syringe SC SCH (08:58)
[2018-08-29] MEDS: Insulin Lispro (humaLOG) 100 Units/ml Inj SC SCH ×4 (09:00→22:41)
--- NOTE | 2018-08-29 13:14 | CP.PCM.PN ---
Subjective - Date & Time of Evaluation Date of Evaluation: 08/29/18 Time of Evaluation: 08:00 - Subjective Subjective: agitated at times in NAD Objective - Vital Signs/Intake and Output Vital Signs (last 24 hours): Temp Pulse Resp BP Pulse Ox 98.3 F 66 20 187/87 H 97 08/29/18 08:07 08/29/18 10:29 08/29/18 08:07 08/29/18 10:29 08/29/18 08:07 - Medications Medications: Current Medications Acetaminophen (Tylenol 325mg Tab) 650 mg PO Q6 PRN PRN Reason: Fever >100.4 F Last Admin: 08/05/18 05:35 Dose: 650 mg Acetaminophen (Tylenol 650mg/20.3ml Solution Ud) 650 mg PO Q6 PRN PRN Reason: Temperature Last Admin: 08/18/18 11:22 Dose: 650 mg Albuterol/Ipratropium (Duoneb 3 Mg/0.5 Mg (3 Ml) Ud) 3 ml INH RQ6 PRN PRN Reason: Shortness of Breath Last Admin: 08/24/18 00:07 Dose: 3 ml Amlodipine Besylate (Norvasc) 10 mg PO DAILY [facility] Last Admin: 08/29/18 08:56 Dose: 10 mg Atorvastatin Calcium (Lipitor) 10 mg PO HS [facility] Last Admin: 08/28/18 21:39 Dose: 10 mg Carvedilol (Coreg) 25 mg PO Q12 [facility] Last Admin: 08/29/18 08:57 Dose: 25 mg Clozapine (Clozaril) 50 mg PO HS [facility] Last Admin: 08/28/18 21:40 Dose: 50 mg Dextrose (Dextrose 50% Inj) 0 ml IV STAT PRN; Protocol PRN Reason: Hypoglycemia Protocol Last Admin: 08/25/18 16:44 Dose: 50 ml Dextrose (Glutose 15) 0 gm PO ONCE PRN; Protocol PRN Reason: Hypoglycemia Protocol Divalproex Sodium (Depakote Er(Once Daily)) 2,000 mg PO [facility] Last Admin: 08/28/18 21:39 Dose: 2,000 mg Enoxaparin Sodium (Lovenox) 40 mg SC DAILY [facility]; Protocol Last Admin: 08/29/18 08:58 Dose: 40 mg Escitalopram Oxalate (Lexapro) 10 mg PO [facility] Last Admin: 08/28/18 21:39 Dose: 10 mg Furosemide (Lasix) 20 mg PO DAILY [facility] Last Admin: 08/27/18 10:13 Dose: Not Given Glucagon (Glucagen Diagnostic Kit) 0 mg IM STAT PRN; Protocol PRN Reason: Hypoglycemia Protocol Hydralazine HCl (Apresoline) 10 mg PO Q8@0000,0800,1600 [facility] Last Admin: 08/29/18 10:29 Dose: 10 mg Sodium Chloride (Sodium Chloride 0.45%) 1,000 mls @ 60 mls/hr IV .[id number] [facility] Stop: 08/30/18 08:38 Ibuprofen (Motrin Tab) 600 mg PO Q6 PRN PRN Reason: Fever >100.4 F Last Admin: 08/19/18 07:23 Dose: 600 mg Insulin Detemir (Levemir) 10 units SC [facility] Last Admin: 08/28/18 22:03 Dose: 10 u Insulin Human Lispro (Humalog) 0 units SC [facility]; Protocol Last Admin: 08/29/18 12:55 Dose: 6 units Lacosamide (Vimpat) 100 mg PO Q12 [facility] Last Admin: 08/29/18 08:56 Dose: 100 mg Lactulose (Enulose) 20 gm PO Q12 PRN PRN Reason: Constipation Last Admin: 08/19/18 08:40 Dose: 20 gm Levothyroxine Sodium (Synthroid) 50 mcg PO DAILY@0630 [facility] Last Admin: 08/29/18 05:40 Dose: 50 mcg Losartan Potassium (Cozaar) 100 mg PO DAILY [facility] Last Admin: 08/29/18 08:55 Dose: 100 mg Metformin HCl (Glucophage) 850 mg PO BID [facility] Last Admin: 08/29/18 08:55 Dose: 850 mg Multivitamins/Minerals (Therapeutic-M Tab) 1 tab PO DAILY [facility] Last Admin: 08/29/18 08:56 Dose: 1 tab - Labs Labs: 08/29/18 05:30 08/29/18 05:30 PT 12.2 Seconds (9.8-13.1) 08/04/18 00:30 INR 1.1 08/04/18 00:30 APTT 31.5 Seconds (25.6-37.1) 08/02/18 22:20 - Constitutional Appears: Non-toxic, Chronically Ill - Head Exam Head Exam: NORMOCEPHALIC - Eye Exam Eye Exam: absent: Scleral icterus - ENT Exam ENT Exam: Mucous Membranes Dry - Neck Exam Neck Exam: absent: Lymphadenopathy - Respiratory Exam Respiratory Exam: Decreased Breath Sounds - Cardiovascular Exam Cardiovascular Exam: REGULAR RHYTHM - GI/Abdominal Exam GI & Abdominal Exam: Distended, Soft Assessment and Plan (1) Pneumonia Status: Acute (2) Severe sepsis Status: Acute - Assessment and Plan (Free Text) Assessment: cont rx as ordered
[2018-08-29] MEDS: Divalproex 500 mg ER (ONCE DAILY formulation) PO SCH (22:03)
[2018-08-29] MEDS: Insulin Detemir 100 Units/ml Inj SC SCH (22:52)
[2018-08-30] MEDS: Sodium Chloride 0.45% 1,000 ML IV SCH (01:25)
[2018-08-30] MEDS: Levothyroxine 50 MCG TAB PO SCH (06:39)
[2018-08-30 06:59] LABS: HEMOGLOBIN 10.4 g/dL (12.0-16.0); MEAN CELL VOLUME 84.1 fl (81.0-99.0); MEAN CORPUSCULAR HGB CONC 32.2 g/dL (33.0-37.0); RBC 3.84 Mil/uL (3.80-5.20); RED CELL DISTRIBUTION WIDTH 18.2 % (11.5-14.5); WHITE BLOOD COUNT 7.9 K/uL (4.8-10.8)
[2018-08-30 07:13] LABS: BLOOD UREA NITROGEN 24 mg/dl (7-17); CALCIUM 9.3 mg/dL (8.4-10.2); GFR NON-AFRICAN AMERICAN > 60
[2018-08-30] MEDS: Multivitamin With Minerals Tab PO SCH (08:57)
[2018-08-30] MEDS: Enoxaparin 40 mg Syringe SC SCH (08:58)
[2018-08-30] MEDS: Insulin Lispro (humaLOG) 100 Units/ml Inj SC SCH ×4 (09:01→22:55)
[2018-08-30] MEDS: Lacosamide 50 MG Tab PO SCH ×2 (09:05→21:23)
--- NOTE | 2018-08-30 09:47 | CP.PCM.PN ---
Subjective - Date & Time of Evaluation Date of Evaluation: 08/30/18 Time of Evaluation: 10:31 - Subjective Subjective: Patient seen and examined at bedside this morning. There are no acute events overnight, NAD. Patient laying down in bed comfortably. Patient making eye contact and greets w/ hand shaking. Able to speak slowly. 1:1 maintained at bedside Objective - Vital Signs/Intake and Output Vital Signs (last 24 hours): Temp Pulse Resp BP Pulse Ox 97.3 F L 63 20 177/78 H 98 08/30/18 09:01 08/30/18 09:01 08/30/18 09:01 08/30/18 09:01 08/30/18 09:01 - Medications Medications: Current Medications Acetaminophen (Tylenol 325mg Tab) 650 mg PO Q6 PRN PRN Reason: Fever >100.4 F Last Admin: 08/29/18 10:00 Dose: 650 mg Acetaminophen (Tylenol 650mg/20.3ml Solution Ud) 650 mg PO Q6 PRN PRN Reason: Temperature Last Admin: 08/18/18 11:22 Dose: 650 mg Albuterol/Ipratropium (Duoneb 3 Mg/0.5 Mg (3 Ml) Ud) 3 ml INH RQ6 PRN PRN Reason: Shortness of Breath Last Admin: 08/24/18 00:07 Dose: 3 ml Amlodipine Besylate (Norvasc) 10 mg PO DAILY [facility] Last Admin: 08/30/18 08:58 Dose: 10 mg Atorvastatin Calcium (Lipitor) 10 mg PO HS [facility] Last Admin: 08/29/18 22:03 Dose: 10 mg Carvedilol (Coreg) 25 mg PO Q12 [facility] Last Admin: 08/30/18 08:59 Dose: 25 mg Clozapine (Clozaril) 50 mg PO HS [facility] Last Admin: 08/29/18 22:02 Dose: 50 mg Dextrose (Dextrose 50% Inj) 0 ml IV STAT PRN; Protocol PRN Reason: Hypoglycemia Protocol Last Admin: 08/25/18 16:44 Dose: 50 ml Dextrose (Glutose 15) 0 gm PO ONCE PRN; Protocol PRN Reason: Hypoglycemia Protocol Divalproex Sodium (Depakote Er(Once Daily)) 2,000 mg PO [facility] Last Admin: 08/29/18 22:03 Dose: 2,000 mg Enoxaparin Sodium (Lovenox) 40 mg SC DAILY [facility]; Protocol Last Admin: 08/30/18 08:58 Dose: 40 mg Escitalopram Oxalate (Lexapro) 10 mg PO HS [facility] Last Admin: 08/29/18 22:02 Dose: 10 mg Furosemide (Lasix) 20 mg PO DAILY [facility] Last Admin: 08/27/18 10:13 Dose: Not Given Glucagon (Glucagen Diagnostic Kit) 0 mg IM STAT PRN; Protocol PRN Reason: Hypoglycemia Protocol Hydralazine HCl (Apresoline) 10 mg PO Q8@0000,0800,1600 [facility] Last Admin: 08/30/18 09:00 Dose: 10 mg Hydralazine HCl (Apresoline) 20 mg PO TID [facility] Ibuprofen (Motrin Tab) 600 mg PO Q6 PRN PRN Reason: Fever >100.4 F Last Admin: 08/19/18 07:23 Dose: 600 mg Insulin Detemir (Levemir) 10 units SC [facility] Last Admin: 08/29/18 22:52 Dose: 10 u Insulin Human Lispro (Humalog) 0 units SC [facility]; Protocol Last Admin: 08/30/18 09:01 Dose: Not Given Lacosamide (Vimpat) 100 mg PO Q12 [facility] Last Admin: 08/30/18 09:05 Dose: 100 mg Lactulose (Enulose) 20 gm PO Q12 PRN PRN Reason: Constipation Last Admin: 08/29/18 13:44 Dose: 20 gm Levothyroxine Sodium (Synthroid) 50 mcg PO DAILY@0630 [facility] Last Admin: 08/30/18 06:39 Dose: 50 mcg Losartan Potassium (Cozaar) 100 mg PO DAILY [facility] Last Admin: 08/30/18 09:00 Dose: 100 mg Metformin HCl (Glucophage) 850 mg PO BID [facility] Last Admin: 08/30/18 08:56 Dose: 850 mg Multivitamins/Minerals (Therapeutic-M Tab) 1 tab PO DAILY [facility] Last Admin: 08/30/18 08:57 Dose: 1 tab - Labs Labs: 08/30/18 05:30 08/30/18 05:30 PT 12.2 Seconds (9.8-13.1) 08/04/18 00:30 INR 1.1 08/04/18 00:30 APTT 31.5 Seconds (25.6-37.1) 08/02/18 22:20 - Constitutional Appears: Non-toxic, No Acute Distress - Head Exam Head Exam: ATRAUMATIC, NORMAL INSPECTION, NORMOCEPHALIC - Eye Exam Eye Exam: Normal appearance - ENT Exam ENT Exam: Mucous Membranes Moist - Respiratory Exam Respiratory Exam: Clear to Ausculation Bilateral, NORMAL BREATHING PATTERN. absent: Decreased Breath Sounds, Rales, Rhonchi, Wheezes, Respiratory Distress - Cardiovascular Exam Cardiovascular Exam: REGULAR RHYTHM, +S1, +S2 - GI/Abdominal Exam GI & Abdominal Exam: Soft, Normal Bowel Sounds. absent: Tenderness - Extremities Exam Extremities Exam: absent: Pedal Edema - Neurological Exam Neurological Exam: Alert, Awake. absent: Oriented x3 Additional comments: remains somewhat non-verbal, but can reply verbally to simple questions, makes eye contact, and is tracking - Skin Skin Exam: Dry Assessment and Plan - Assessment and Plan (Free Text) Assessment: 62 [facility] female [place] [facility], with hx of DM II, schizophrenia and HTN; initially admitted for sepsis and pneumonia. Initial labs were significant for leukocytosis with bandemia; CXR showed atelectasis vs infiltrate and pt was started on vancomycin, zosyn and zithromax IV. During the admission, the pt was found to be bradycardic and became unresponsive. A Code Blue was called for suspected Pulseless Electrical Activity; compressions done ,was achieved after 3 rounds of epinephrine. She was then transferred to ICU. When weaned off sedation, mental status changes appreciated per family when compared to her baseline. Patient medically stable but is currently undergoing titration of clozaril Daughter willing to be POA however, patient is not able to sign over POA in current condition Plan: 1. Altered Mental Status - improving but not at baseline as per family - empirically treated with IV Acyclovir; Lumbar puncture unremarkable and Cx negative - MRI of Brain - no signs of Stroke nor Encephalitis - likely toxic encephalopathy as per neurology - AMS may be due to Schizophrenia as antipsychotic medication was on hold. Started on Clozapine at low dose with gradual increase and close monitoring of WBC count. Psych on board. - C/W Depakote for Seizures - C/W Lexapro. Haldol prn - Procalcitonin 0.05 - LDH: 765 2. Electrolyte imbalance - Hypokalemia- resolved, 3.9 - Hypernatremia-stable, 148 - f/u AM BMP 3. JOSHUA -resolved - Cr 0.8 4. Hypertension - uncontrolled - cont Lasix, Amlodipine, Coreg and Losartan - increased Hydralazine to 20mg PO Q8h - c/w clonopine 0.1mg Q12H - c/w monitoring BP 5. DM - c/w Iinsulin lispro correction scale - c/w Levemir 10 Units SC HS - c/w Januvia - c/w Metformin 6. s/p Cardio-Respiratory Arrest - s/p Code Blue (received 3 doses of epinephrine); unclear if real cardiac arrest - extubated, tolerating well 7. Localization-related (focal) (partial) symptomatic epilepsy - as per neuro due to pts infection and antipsychotic lowered seizure threshold; appear to have resolved now - cont Keppra 1000 mg Q12 - Clozapine discontinued 8. Sepsis 2/2 to Pneumonia, likely bacterial - resolved 9. Anasarca - improving - IV lasix held 10.Hypothyrodism -Chronic, uncontrolled -Levothyroxine 50mcg daily 11. Schizophrenia - Chronic - c/w clozapine 50 mg PO daily, to be titrated weekly by psychiatry - Home meds held for now - cont Depakote - Psych consulted- rec Lexapro and Risperdal 12. DVT prophylaxis - Lovenox 40mg SC QD - SCDs 13. Code Status - full code
[2018-08-30] MEDS ORDERED: Sodium Chloride 0.45% 1,000 ML IV SCH (12:00)
[2018-08-30] MEDS: Divalproex 500 mg ER (ONCE DAILY formulation) PO SCH (21:25)
[2018-08-30] MEDS: Insulin Detemir 100 Units/ml Inj SC SCH (23:00)
[2018-08-31] MEDS: Levothyroxine 50 MCG TAB PO SCH (07:03)
[2018-08-31] MEDS: Insulin Lispro (humaLOG) 100 Units/ml Inj SC SCH ×4 (08:34→22:40)
[2018-08-31] MEDS: Enoxaparin 40 mg Syringe SC SCH (08:35)
[2018-08-31] MEDS: Multivitamin With Minerals Tab PO SCH (08:38)
[2018-08-31] MEDS: Lacosamide 50 MG Tab PO SCH ×2 (10:33→21:03)
--- NOTE | 2018-08-31 11:04 | CP.PCM.PN ---
<Renetta Kunz - Last Filed: 08/31/18 11:04> Subjective - Date & Time of Evaluation Date of Evaluation: 08/31/18 Time of Evaluation: 08:00 - Subjective Subjective: Pt seen and examined this morning. Seen lying in bed with eyes open. Appears calm. Speaking few words at a time. Denies pain. Eating. Ray in place w/ 300cc of yellow urine. Participating in PT. 1:1 at bedside. Objective - Vital Signs/Intake and Output Vital Signs (last 24 hours): Temp Pulse Resp BP Pulse Ox 98 F 65 18 125/71 99 08/31/18 08:07 08/31/18 08:38 08/31/18 08:07 08/31/18 08:38 08/31/18 08:07 - Medications Medications: Current Medications Acetaminophen (Tylenol 325mg Tab) 650 mg PO Q6 PRN PRN Reason: Fever >100.4 F Last Admin: 08/30/18 17:12 Dose: 650 mg Acetaminophen (Tylenol 650mg/20.3ml Solution Ud) 650 mg PO Q6 PRN PRN Reason: Temperature Last Admin: 08/18/18 11:22 Dose: 650 mg Albuterol/Ipratropium (Duoneb 3 Mg/0.5 Mg (3 Ml) Ud) 3 ml INH RQ6 PRN PRN Reason: Shortness of Breath Last Admin: 08/24/18 00:07 Dose: 3 ml Amlodipine Besylate (Norvasc) 10 mg PO DAILY [facility] Last Admin: 08/31/18 08:38 Dose: 10 mg Atorvastatin Calcium (Lipitor) 10 mg PO HS [facility] Last Admin: 08/30/18 21:27 Dose: 10 mg Carvedilol (Coreg) 25 mg PO Q12 [facility] Last Admin: 08/31/18 08:37 Dose: 25 mg Clozapine (Clozaril) 50 mg PO HS [facility] Last Admin: 08/30/18 21:24 Dose: 50 mg Dextrose (Dextrose 50% Inj) 0 ml IV STAT PRN; Protocol PRN Reason: Hypoglycemia Protocol Last Admin: 08/25/18 16:44 Dose: 50 ml Dextrose (Glutose 15) 0 gm PO ONCE PRN; Protocol PRN Reason: Hypoglycemia Protocol Divalproex Sodium (Depakote Er(Once Daily)) 2,000 mg PO [facility] Last Admin: 08/30/18 21:25 Dose: 2,000 mg Enoxaparin Sodium (Lovenox) 40 mg SC DAILY [facility]; Protocol Last Admin: 08/31/18 08:35 Dose: 40 mg Escitalopram Oxalate (Lexapro) 10 mg PO HS [facility] Last Admin: 08/30/18 21:24 Dose: 10 mg Furosemide (Lasix) 20 mg PO DAILY [facility] Last Admin: 08/27/18 10:13 Dose: Not Given Glucagon (Glucagen Diagnostic Kit) 0 mg IM STAT PRN; Protocol PRN Reason: Hypoglycemia Protocol Hydralazine HCl (Apresoline) 20 mg PO TID [facility] Last Admin: 08/31/18 08:37 Dose: 20 mg Sodium Chloride (Sodium Chloride 0.45%) 1,000 mls @ 40 mls/hr IV .Q24H [facility] Stop: 08/31/18 11:50 Last Admin: 08/30/18 17:08 Dose: 40 mls/hr Ibuprofen (Motrin Tab) 600 mg PO Q6 PRN PRN Reason: Fever >100.4 F Last Admin: 08/19/18 07:23 Dose: 600 mg Insulin Detemir (Levemir) 10 units SC [facility] Last Admin: 08/30/18 23:00 Dose: 10 u Insulin Human Lispro (Humalog) 0 units SC [facility]; Protocol Last Admin: 08/31/18 08:34 Dose: Not Given Lacosamide (Vimpat) 100 mg PO Q12 [facility] Last Admin: 08/31/18 10:33 Dose: 100 mg Lactulose (Enulose) 20 gm PO Q12 PRN PRN Reason: Constipation Last Admin: 08/29/18 13:44 Dose: 20 gm Levothyroxine Sodium (Synthroid) 50 mcg PO DAILY@0630 [facility] Last Admin: 08/31/18 07:03 Dose: 50 mcg Losartan Potassium (Cozaar) 100 mg PO DAILY [facility] Last Admin: 08/31/18 08:37 Dose: 100 mg Metformin HCl (Glucophage) 850 mg PO BID [facility] Last Admin: 08/31/18 08:36 Dose: 850 mg Multivitamins/Minerals (Therapeutic-M Tab) 1 tab PO DAILY [facility] Last Admin: 08/31/18 08:38 Dose: 1 tab Tamsulosin HCl (Flomax) 0.4 mg PO DAILY [facility] Last Admin: 08/31/18 10:33 Dose: 0.4 mg - Labs Labs: 08/30/18 05:30 08/30/18 05:30 PT 12.2 Seconds (9.8-13.1) 08/04/18 00:30 INR 1.1 08/04/18 00:30 APTT 31.5 Seconds (25.6-37.1) 08/02/18 22:20 - Constitutional Appears: No Acute Distress - Head Exam Head Exam: NORMAL INSPECTION - Eye Exam Eye Exam: Normal appearance - ENT Exam ENT Exam: Mucous Membranes Moist - Neck Exam Neck Exam: Full ROM - Respiratory Exam Respiratory Exam: Clear to Ausculation Bilateral. absent: Accessory Muscle Use, Rales, Wheezes - Cardiovascular Exam Cardiovascular Exam: REGULAR RHYTHM, +S1, +S2. absent: Murmur - GI/Abdominal Exam GI & Abdominal Exam: Distended, Soft, Normal Bowel Sounds. absent: Tenderness - Neurological Exam Neurological Exam: Alert, Awake (minimally verbal) - Psychiatric Exam Psychiatric exam: Flat Affect, Normal Affect - Skin Skin Exam: Normal Color Assessment and Plan - Assessment and Plan (Free Text) Assessment: 62 yo female from a skilled nursing, with hx of DM II, schizophrenia and HTN; initially admitted for sepsis and pneumonia. Initial labs were significant for leukocytosis with bandemia; CXR showed atelectasis vs infiltrate and pt was started on vancomycin, zosyn and zithromax IV. During the admission, the pt was found to be bradycardic and became unresponsive. A Code Blue was called for suspected Pulseless Electrical Activity; compressions done ,was achieved after 3 rounds of epinephrine. She was then transferred to ICU. When weaned off sedation, mental status changes appreciated per family when compared to her baseline believed to be effect of being off her psych medication. Patient medically stable but is currently undergoing titration of clozaril. Daughter willing to be POA however, patient is not able to sign over POA in current condition. Plan: 1. Altered Mental Status - improving but not at baseline as per family - empirically treated with IV Acyclovir; Lumbar puncture unremarkable and Cx negative - MRI of Brain - no signs of Stroke nor Encephalitis - AMS may be due to Schizophrenia as antipsychotic medication was on hold. Started on Clozapine at low dose with gradual increase and close monitoring of WBC count. Psych on board. - Clozapine 50mg po daily, next wean 09/03. - C/W Depakote for Seizures - C/W Lexapro. Haldol prn - Procalcitonin 0.05 - LDH: 765 2. Urinary Retention - Ray in place, good urine output - Flomax 0.4mg - Bladder training 2. Electrolyte imbalance - resolved - Hypokalemia- resolved, 3.9 - Hypernatremia-stable, 148 - f/u AM BMP 3. JOSHUA -resolved - Cr 0.8 4. Hypertension - better controlled today - cont Lasix, Amlodipine, Coreg and Losartan - increased Hydralazine to 20mg PO Q8h yesterday - c/w clonopine 0.1mg Q12H - c/w monitoring BP 5. DM - c/w Iinsulin lispro correction scale - c/w Levemir 10 Units SC HS - c/w Januvia - c/w Metformin 6. Localization-related (focal) (partial) symptomatic epilepsy - as per neuro due to pts infection and antipsychotic lowered seizure threshold; appear to have resolved now - cont Keppra 1000 mg Q12 7.Hypothyrodism -Chronic, uncontrolled -Levothyroxine 50mcg daily 8. Schizophrenia - Chronic - c/w clozapine 50 mg PO daily, to be titrated weekly by psychiatry - Home meds held for now - cont Depakote - Psych consulted- rec Lexapro and Risperdal 9. DVT prophylaxis - Lovenox 40mg SC QD - SCDs 10. Deconditioning - PT/OT: improved bed mobility, able to completed lateral steps 11. Dispo planning -Subacute rehab as per PT <Baylee Garcia - Last Filed: 08/31/18 17:11> Objective - Vital Signs/Intake and Output Vital Signs (last 24 hours): Temp Pulse Resp BP Pulse Ox 97.8 F 64 18 142/71 98 08/31/18 16:50 08/31/18 17:01 08/31/18 16:50 08/31/18 17:01 08/31/18 16:50 - Medications Medications: Current Medications Acetaminophen (Tylenol 325mg Tab) 650 mg PO Q6 PRN PRN Reason: Fever >100.4 F Last Admin: 08/30/18 17:12 Dose: 650 mg Acetaminophen (Tylenol 650mg/20.3ml Solution Ud) 650 mg PO Q6 PRN PRN Reason: Temperature Last Admin: 08/18/18 11:22 Dose: 650 mg Albuterol/Ipratropium (Duoneb 3 Mg/0.5 Mg (3 Ml) Ud) 3 ml INH RQ6 PRN PRN Reason: Shortness of Breath Last Admin: 08/24/18 00:07 Dose: 3 ml Amlodipine Besylate (Norvasc) 10 mg PO DAILY [facility] Last Admin: 08/31/18 08:38 Dose: 10 mg Atorvastatin Calcium (Lipitor) 10 mg PO HS [facility] Last Admin: 08/30/18 21:27 Dose: 10 mg Carvedilol (Coreg) 25 mg PO Q12 [facility] Last Admin: 08/31/18 08:37 Dose: 25 mg Clozapine (Clozaril) 50 mg PO HS [facility] Last Admin: 08/30/18 21:24 Dose: 50 mg Dextrose (Dextrose 50% Inj) 0 ml IV STAT PRN; Protocol PRN Reason: Hypoglycemia Protocol Last Admin: 08/25/18 16:44 Dose: 50 ml Dextrose (Glutose 15) 0 gm PO ONCE PRN; Protocol PRN Reason: Hypoglycemia Protocol Divalproex Sodium (Depakote Er(Once Daily)) 2,000 mg PO [facility] Last Admin: 08/30/18 21:25 Dose: 2,000 mg Enoxaparin Sodium (Lovenox) 40 mg SC DAILY [facility]; Protocol Last Admin: 08/31/18 08:35 Dose: 40 mg Escitalopram Oxalate (Lexapro) 10 mg PO [facility] Last Admin: 08/30/18 21:24 Dose: 10 mg Glucagon (Glucagen Diagnostic Kit) 0 mg IM STAT PRN; Protocol PRN Reason: Hypoglycemia Protocol Hydralazine HCl (Apresoline) 20 mg PO TID [facility] Last Admin: 08/31/18 17:01 Dose: 20 mg Ibuprofen (Motrin Tab) 600 mg PO Q6 PRN PRN Reason: Fever >100.4 F Last Admin: 08/19/18 07:23 Dose: 600 mg Insulin Detemir (Levemir) 10 units SC [facility] Last Admin: 08/30/18 23:00 Dose: 10 u Insulin Human Lispro (Humalog) 0 units SC [facility]; Protocol Last Admin: 08/31/18 17:01 Dose: 2 units Lacosamide (Vimpat) 100 mg PO Q12 [facility] Last Admin: 08/31/18 10:33 Dose: 100 mg Lactulose (Enulose) 20 gm PO Q12 PRN PRN Reason: Constipation Last Admin: 08/29/18 13:44 Dose: 20 gm Levothyroxine Sodium (Synthroid) 50 mcg PO DAILY@0630 [facility] Last Admin: 08/31/18 07:03 Dose: 50 mcg Losartan Potassium (Cozaar) 100 mg PO DAILY [facility] Last Admin: 08/31/18 08:37 Dose: 100 mg Metformin HCl (Glucophage) 850 mg PO BID [facility] Last Admin: 08/31/18 17:00 Dose: 850 mg Multivitamins/Minerals (Therapeutic-M Tab) 1 tab PO DAILY [facility] Last Admin: 08/31/18 08:38 Dose: 1 tab Tamsulosin HCl (Flomax) 0.4 mg PO DAILY [facility] Last Admin: 08/31/18 10:33 Dose: 0.4 mg - Labs Labs: 08/30/18 05:30 08/31/18 12:00 PT 12.2 Seconds (9.8-13.1) 08/04/18 00:30 INR 1.1 08/04/18 00:30 APTT 31.5 Seconds (25.6-37.1) 08/02/18 22:20 Attending/Attestation - Attestation I have personally seen and examined this patient.: Yes I have fully participated in the care of the patient.: Yes I have reviewed all pertinent clinical information, including history, physical exam and plan: Yes
[2018-08-31 12:45] LABS: BLOOD UREA NITROGEN 18 mg/dl (7-17); CALCIUM 8.2 mg/dL (8.4-10.2); GFR NON-AFRICAN AMERICAN > 60
[2018-08-31] MEDS: Divalproex 500 mg ER (ONCE DAILY formulation) PO SCH (21:00)
[2018-08-31] MEDS: Insulin Detemir 100 Units/ml Inj SC SCH (22:39)
[2018-09-01] MEDS: Levothyroxine 50 MCG TAB PO SCH (05:44)
--- NOTE | 2018-09-01 08:41 | CP.PCM.PN ---
Subjective - Date & Time of Evaluation Date of Evaluation: 09/01/18 Time of Evaluation: 08:00 - Subjective Subjective: Pt seen and examined this morning. Seen sitting up in chair. Appears calm. Able to speak a few words. States she feels fine. Denies pain. Eating. Ray in place w/ 250cc of yellow urine. Participating in PT. 1:1 at bedside. Objective - Vital Signs/Intake and Output Vital Signs (last 24 hours): Temp Pulse Resp BP Pulse Ox 98.5 F 65 18 155/72 H 98 09/01/18 00:41 09/01/18 00:41 09/01/18 00:41 09/01/18 00:41 09/01/18 00:41 - Medications Medications: Current Medications Acetaminophen (Tylenol 325mg Tab) 650 mg PO Q6 PRN PRN Reason: Fever >100.4 F Last Admin: 08/30/18 17:12 Dose: 650 mg Acetaminophen (Tylenol 650mg/20.3ml Solution Ud) 650 mg PO Q6 PRN PRN Reason: Temperature Last Admin: 08/18/18 11:22 Dose: 650 mg Albuterol/Ipratropium (Duoneb 3 Mg/0.5 Mg (3 Ml) Ud) 3 ml INH RQ6 PRN PRN Reason: Shortness of Breath Last Admin: 08/24/18 00:07 Dose: 3 ml Amlodipine Besylate (Norvasc) 10 mg PO DAILY [facility] Last Admin: 08/31/18 08:38 Dose: 10 mg Atorvastatin Calcium (Lipitor) 10 mg PO HS [facility] Last Admin: 08/31/18 21:00 Dose: 10 mg Carvedilol (Coreg) 25 mg PO Q12 [facility] Last Admin: 08/31/18 21:01 Dose: 25 mg Clozapine (Clozaril) 50 mg PO HS [facility] Last Admin: 08/31/18 21:01 Dose: 50 mg Dextrose (Dextrose 50% Inj) 0 ml IV STAT PRN; Protocol PRN Reason: Hypoglycemia Protocol Last Admin: 08/25/18 16:44 Dose: 50 ml Dextrose (Glutose 15) 0 gm PO ONCE PRN; Protocol PRN Reason: Hypoglycemia Protocol Divalproex Sodium (Depakote Er(Once Daily)) 2,000 mg PO HS [facility] Last Admin: 08/31/18 21:00 Dose: 2,000 mg Enoxaparin Sodium (Lovenox) 40 mg SC DAILY [facility]; Protocol Last Admin: 08/31/18 08:35 Dose: 40 mg Escitalopram Oxalate (Lexapro) 10 mg PO HS [facility] Last Admin: 08/31/18 21:01 Dose: 10 mg Glucagon (Glucagen Diagnostic Kit) 0 mg IM STAT PRN; Protocol PRN Reason: Hypoglycemia Protocol Hydralazine HCl (Apresoline) 20 mg PO TID [facility] Last Admin: 08/31/18 17:01 Dose: 20 mg Ibuprofen (Motrin Tab) 600 mg PO Q6 PRN PRN Reason: Fever >100.4 F Last Admin: 08/19/18 07:23 Dose: 600 mg Insulin Detemir (Levemir) 10 units SC [facility] Last Admin: 08/31/18 22:39 Dose: 10 u Insulin Human Lispro (Humalog) 0 units SC [facility]; Protocol Last Admin: 08/31/18 22:40 Dose: Not Given Lacosamide (Vimpat) 100 mg PO Q12 [facility] Last Admin: 08/31/18 21:03 Dose: 100 mg Lactulose (Enulose) 20 gm PO Q12 PRN PRN Reason: Constipation Last Admin: 08/29/18 13:44 Dose: 20 gm Levothyroxine Sodium (Synthroid) 50 mcg PO DAILY@0630 [facility] Last Admin: 09/01/18 05:44 Dose: 50 mcg Losartan Potassium (Cozaar) 100 mg PO DAILY [facility] Last Admin: 08/31/18 08:37 Dose: 100 mg Metformin HCl (Glucophage) 850 mg PO BID [facility] Last Admin: 08/31/18 17:00 Dose: 850 mg Multivitamins/Minerals (Therapeutic-M Tab) 1 tab PO DAILY [facility] Last Admin: 08/31/18 08:38 Dose: 1 tab Tamsulosin HCl (Flomax) 0.4 mg PO DAILY [facility] Last Admin: 08/31/18 10:33 Dose: 0.4 mg - Labs Labs: 08/30/18 05:30 08/31/18 12:00 PT 12.2 Seconds (9.8-13.1) 08/04/18 00:30 INR 1.1 08/04/18 00:30 APTT 31.5 Seconds (25.6-37.1) 08/02/18 22:20 - Constitutional Appears: No Acute Distress - Head Exam Head Exam: NORMAL INSPECTION - Eye Exam Eye Exam: Normal appearance - ENT Exam ENT Exam: Mucous Membranes Moist - Neck Exam Neck Exam: Full ROM - Respiratory Exam Respiratory Exam: Clear to Ausculation Bilateral. absent: Rales, Wheezes - Cardiovascular Exam Cardiovascular Exam: REGULAR RHYTHM, +S1, +S2. absent: Murmur - GI/Abdominal Exam GI & Abdominal Exam: Soft, Normal Bowel Sounds. absent: Distended, Tenderness - Extremities Exam Extremities Exam: Normal Capillary Refill, Normal Inspection. absent: Pedal Edema - Neurological Exam Neurological Exam: Alert, Awake - Psychiatric Exam Psychiatric exam: Normal Affect - Skin Skin Exam: Normal Color Assessment and Plan - Assessment and Plan (Free Text) Assessment: 62 yo female [place] [facility] [place], with hx of DM II, schizophrenia and HTN; initially admitted for sepsis and pneumonia. Initial labs were significant for leukocytosis with bandemia; CXR showed atelectasis vs infiltrate and pt was started on vancomycin, zosyn and zithromax IV. During the admission, the pt was found to be bradycardic and became unresponsive. A Code Blue was called for suspected Pulseless Electrical Activity; compressions done ,was achieved after 3 rounds of epinephrine. She was then transferred to ICU. When weaned off sedation, mental status changes appreciated per family when compared to her baseline believed to be effect of being off her psych medication. Patient medically stable but is currently undergoing titration of clozaril. Daughter willing to be POA however, patient is not able to sign over POA in current condition. Plan: 1. Altered Mental Status - Improved significantly since restarting Clozapine. - empirically treated with IV Acyclovir; Lumbar puncture unremarkable and Cx negative - MRI of Brain - no signs of Stroke nor Encephalitis - AMS may be due to Schizophrenia as antipsychotic medication was on hold. Started on Clozapine at low dose with gradual increase and close monitoring of WBC count. Psych on board. - Clozapine 50mg po daily, next wean 09/03. - C/W Depakote for Seizures - C/W Lexapro. Haldol prn - Procalcitonin 0.05 - LDH: 765 2. Urinary Retention - Ray in place, good urine output - Flomax 0.4mg - Bladder training in progress 2. Electrolyte imbalance - resolved - Hypokalemia- resolved, 3.9 - Hypernatremia-stable, 148 - f/u AM BMP 3. JOSHUA -resolved - Cr 0.8 4. Hypertension - better controlled today - cont Lasix, Amlodipine, Coreg and Losartan - increased Hydralazine to 20mg PO Q8h yesterday - c/w clonopine 0.1mg Q12H - c/w monitoring BP 5. DM - c/w Iinsulin lispro correction scale - c/w Levemir 10 Units SC HS - c/w Januvia - c/w Metformin 6. Localization-related (focal) (partial) symptomatic epilepsy - as per neuro due to pts infection and antipsychotic lowered seizure threshold; appear to have resolved now - cont Keppra 1000 mg Q12 7.Hypothyrodism -Chronic, uncontrolled -Levothyroxine 50mcg daily 8. Schizophrenia - Chronic - c/w clozapine 50 mg PO daily, to be titrated weekly by psychiatry - Home meds held for now - cont Depakote 9. DVT prophylaxis - Lovenox 40mg SC QD - SCDs 10. Deconditioning - PT/OT: improved bed mobility, able to completed lateral steps 11. Dispo planning -Subacute rehab as per PT
[2018-09-01] MEDS: Enoxaparin 40 mg Syringe SC SCH (09:06)
[2018-09-01] MEDS: Multivitamin With Minerals Tab PO SCH (09:07)
[2018-09-01] MEDS: Insulin Lispro (humaLOG) 100 Units/ml Inj SC SCH ×4 (09:07→22:00)
[2018-09-01] MEDS: Lacosamide 50 MG Tab PO SCH ×2 (09:13→21:30)
--- NOTE | 2018-09-01 10:55 | CP.PCM.PN ---
Subjective - Date & Time of Evaluation Date of Evaluation: 09/01/18 Time of Evaluation: 09:00 - Subjective Subjective: no fever restless bedridden nad Objective - Vital Signs/Intake and Output Vital Signs (last 24 hours): Temp Pulse Resp BP Pulse Ox 97.8 F 65 20 144/70 95 09/01/18 09:01 09/01/18 09:01 09/01/18 09:01 09/01/18 09:01 09/01/18 09:01 - Medications Medications: Current Medications Acetaminophen (Tylenol 325mg Tab) 650 mg PO Q6 PRN PRN Reason: Fever >100.4 F Last Admin: 08/30/18 17:12 Dose: 650 mg Acetaminophen (Tylenol 650mg/20.3ml Solution Ud) 650 mg PO Q6 PRN PRN Reason: Temperature Last Admin: 08/18/18 11:22 Dose: 650 mg Albuterol/Ipratropium (Duoneb 3 Mg/0.5 Mg (3 Ml) Ud) 3 ml INH RQ6 PRN PRN Reason: Shortness of Breath Last Admin: 08/24/18 00:07 Dose: 3 ml Amlodipine Besylate (Norvasc) 10 mg PO DAILY [facility] Last Admin: 09/01/18 09:10 Dose: 10 mg Atorvastatin Calcium (Lipitor) 10 mg PO HS [facility] Last Admin: 08/31/18 21:00 Dose: 10 mg Carvedilol (Coreg) 25 mg PO Q12 [facility] Last Admin: 09/01/18 09:09 Dose: 25 mg Clozapine (Clozaril) 50 mg PO HS [facility] Last Admin: 08/31/18 21:01 Dose: 50 mg Dextrose (Dextrose 50% Inj) 0 ml IV STAT PRN; Protocol PRN Reason: Hypoglycemia Protocol Last Admin: 08/25/18 16:44 Dose: 50 ml Dextrose (Glutose 15) 0 gm PO ONCE PRN; Protocol PRN Reason: Hypoglycemia Protocol Divalproex Sodium (Depakote Er(Once Daily)) 2,000 mg PO [facility] Last Admin: 08/31/18 21:00 Dose: 2,000 mg Enoxaparin Sodium (Lovenox) 40 mg SC DAILY [facility]; Protocol Last Admin: 09/01/18 09:06 Dose: 40 mg Escitalopram Oxalate (Lexapro) 10 mg PO [facility] Last Admin: 08/31/18 21:01 Dose: 10 mg Glucagon (Glucagen Diagnostic Kit) 0 mg IM STAT PRN; Protocol PRN Reason: Hypoglycemia Protocol Hydralazine HCl (Apresoline) 20 mg PO TID [facility] Last Admin: 09/01/18 09:09 Dose: 20 mg Ibuprofen (Motrin Tab) 600 mg PO Q6 PRN PRN Reason: Fever >100.4 F Last Admin: 08/19/18 07:23 Dose: 600 mg Insulin Detemir (Levemir) 10 units SC HS [facility] Last Admin: 08/31/18 22:39 Dose: 10 u Insulin Human Lispro (Humalog) 0 units SC [facility]; Protocol Last Admin: 09/01/18 09:07 Dose: Not Given Lacosamide (Vimpat) 100 mg PO Q12 [facility] Last Admin: 09/01/18 09:13 Dose: 100 mg Lactulose (Enulose) 20 gm PO Q12 PRN PRN Reason: Constipation Last Admin: 08/29/18 13:44 Dose: 20 gm Levothyroxine Sodium (Synthroid) 50 mcg PO DAILY@0630 [facility] Last Admin: 09/01/18 05:44 Dose: 50 mcg Losartan Potassium (Cozaar) 100 mg PO DAILY [facility] Last Admin: 09/01/18 09:10 Dose: 100 mg Metformin HCl (Glucophage) 850 mg PO BID [facility] Last Admin: 09/01/18 09:10 Dose: 850 mg Multivitamins/Minerals (Therapeutic-M Tab) 1 tab PO DAILY [facility] Last Admin: 09/01/18 09:07 Dose: 1 tab Tamsulosin HCl (Flomax) 0.4 mg PO DAILY [facility] Last Admin: 09/01/18 09:10 Dose: 0.4 mg - Labs Labs: 08/30/18 05:30 08/31/18 12:00 PT 12.2 Seconds (9.8-13.1) 08/04/18 00:30 INR 1.1 08/04/18 00:30 APTT 31.5 Seconds (25.6-37.1) 08/02/18 22:20 - Constitutional Appears: Non-toxic, Confused, Chronically Ill - Head Exam Head Exam: NORMOCEPHALIC - Eye Exam Eye Exam: absent: Scleral icterus - ENT Exam ENT Exam: Mucous Membranes Dry - Neck Exam Neck Exam: absent: Lymphadenopathy - Respiratory Exam Respiratory Exam: Decreased Breath Sounds - Cardiovascular Exam Cardiovascular Exam: REGULAR RHYTHM - GI/Abdominal Exam GI & Abdominal Exam: Distended, Soft - Rectal Exam Rectal Exam: Deferred - Exam Exam: NORMAL INSPECTION - Extremities Exam Extremities Exam: absent: Pedal Edema - Back Exam Back Exam: absent: CVA tenderness (L), CVA tenderness (R) - Neurological Exam Neurological Exam: Alert, Awake, Oriented x3 - Psychiatric Exam Psychiatric exam: Depressed - Skin Skin Exam: Dry Assessment and Plan (1) Pneumonia Status: Acute (2) Severe sepsis Status: Acute - Assessment and Plan (Free Text) Assessment: cont rx observe for fever
[2018-09-01] MEDS: Divalproex 500 mg ER (ONCE DAILY formulation) PO SCH (21:16)
[2018-09-01] MEDS: Insulin Detemir 100 Units/ml Inj SC SCH (22:00)
[2018-09-02] MEDS: Levothyroxine 50 MCG TAB PO SCH (05:36)
[2018-09-02 06:27] LABS: HEMOGLOBIN 9.5 g/dL (12.0-16.0); MEAN CELL VOLUME 83.2 fl (81.0-99.0); MEAN CORPUSCULAR HEMOGLOBIN 27.1 pg (27.0-31.0); MEAN CORPUSCULAR HGB CONC 32.6 g/dL (33.0-37.0); RBC 3.5 Mil/uL (3.80-5.20)
[2018-09-02] MEDS: Insulin Lispro (humaLOG) 100 Units/ml Inj SC SCH ×4 (08:39→22:47)
[2018-09-02] MEDS: Enoxaparin 40 mg Syringe SC SCH (08:39)
[2018-09-02] MEDS: Multivitamin With Minerals Tab PO SCH (08:41)
[2018-09-02] MEDS: Lacosamide 50 MG Tab PO SCH ×2 (08:51→21:01)
--- NOTE | 2018-09-02 11:02 | CP.PCM.PN ---
<Renetta Kunz - Last Filed: 09/02/18 11:19> Subjective - Date & Time of Evaluation Date of Evaluation: 09/02/18 Time of Evaluation: 08:35 - Subjective Subjective: Pt seen and examined this morning. Seen sitting up in bed talking more than yesterday. States she is thirsty. Otherwise denies any pain or discomfort. Participating in physical therapy sessions. Objective - Vital Signs/Intake and Output Vital Signs (last 24 hours): Temp Pulse Resp BP Pulse Ox 98 F 62 20 154/70 H 99 09/01/18 17:02 09/02/18 08:58 09/01/18 17:02 09/02/18 08:58 09/01/18 17:02 - Medications Medications: Current Medications Acetaminophen (Tylenol 325mg Tab) 650 mg PO Q6 PRN PRN Reason: Fever >100.4 F Last Admin: 08/30/18 17:12 Dose: 650 mg Acetaminophen (Tylenol 650mg/20.3ml Solution Ud) 650 mg PO Q6 PRN PRN Reason: Temperature Last Admin: 08/18/18 11:22 Dose: 650 mg Albuterol/Ipratropium (Duoneb 3 Mg/0.5 Mg (3 Ml) Ud) 3 ml INH RQ6 PRN PRN Reason: Shortness of Breath Last Admin: 08/24/18 00:07 Dose: 3 ml Amlodipine Besylate (Norvasc) 10 mg PO DAILY [facility] Last Admin: 09/02/18 08:40 Dose: 10 mg Atorvastatin Calcium (Lipitor) 10 mg PO HS [facility] Last Admin: 09/01/18 21:17 Dose: 10 mg Carvedilol (Coreg) 25 mg PO Q12 [facility] Last Admin: 09/02/18 08:58 Dose: 25 mg Clozapine (Clozaril) 50 mg PO HS [facility] Last Admin: 09/01/18 21:17 Dose: 50 mg Dextrose (Dextrose 50% Inj) 0 ml IV STAT PRN; Protocol PRN Reason: Hypoglycemia Protocol Last Admin: 08/25/18 16:44 Dose: 50 ml Dextrose (Glutose 15) 0 gm PO ONCE PRN; Protocol PRN Reason: Hypoglycemia Protocol Divalproex Sodium (Depakote Er(Once Daily)) 2,000 mg PO HS [facility] Last Admin: 09/01/18 21:16 Dose: 2,000 mg Enoxaparin Sodium (Lovenox) 40 mg SC DAILY [facility]; Protocol Last Admin: 09/02/18 08:39 Dose: 40 mg Escitalopram Oxalate (Lexapro) 10 mg PO HS [facility] Last Admin: 09/01/18 21:16 Dose: 10 mg Glucagon (Glucagen Diagnostic Kit) 0 mg IM STAT PRN; Protocol PRN Reason: Hypoglycemia Protocol Hydralazine HCl (Apresoline) 20 mg PO TID [facility] Last Admin: 09/02/18 08:41 Dose: 20 mg Ibuprofen (Motrin Tab) 600 mg PO Q6 PRN PRN Reason: Fever >100.4 F Last Admin: 08/19/18 07:23 Dose: 600 mg Insulin Detemir (Levemir) 10 units SC [facility] Last Admin: 09/01/18 22:00 Dose: Not Given Insulin Human Lispro (Humalog) 0 units SC [facility]; Protocol Last Admin: 09/02/18 08:39 Dose: 2 units Lacosamide (Vimpat) 100 mg PO Q12 [facility] Last Admin: 09/02/18 08:51 Dose: 100 mg Lactulose (Enulose) 20 gm PO Q12 PRN PRN Reason: Constipation Last Admin: 08/29/18 13:44 Dose: 20 gm Levothyroxine Sodium (Synthroid) 50 mcg PO DAILY@0630 [facility] Last Admin: 09/02/18 05:36 Dose: 50 mcg Losartan Potassium (Cozaar) 100 mg PO DAILY [facility] Last Admin: 09/02/18 08:41 Dose: 100 mg Metformin HCl (Glucophage) 850 mg PO BID [facility] Last Admin: 09/02/18 08:42 Dose: 850 mg Multivitamins/Minerals (Therapeutic-M Tab) 1 tab PO DAILY [facility] Last Admin: 09/02/18 08:41 Dose: 1 tab Tamsulosin HCl (Flomax) 0.4 mg PO DAILY [facility] Last Admin: 09/02/18 08:41 Dose: 0.4 mg - Labs Labs: 09/02/18 06:00 08/31/18 12:00 PT 12.2 Seconds (9.8-13.1) 08/04/18 00:30 INR 1.1 08/04/18 00:30 APTT 31.5 Seconds (25.6-37.1) 10/28/18 22:20 - Constitutional Appears: No Acute Distress - Head Exam Head Exam: NORMAL INSPECTION - Eye Exam Eye Exam: Normal appearance - ENT Exam ENT Exam: Mucous Membranes Moist - Respiratory Exam Respiratory Exam: Clear to Ausculation Bilateral. absent: Rales, Wheezes - Cardiovascular Exam Cardiovascular Exam: REGULAR RHYTHM, +S1, +S2 - GI/Abdominal Exam GI & Abdominal Exam: Distended (imropoved from yesterday), Soft, Normal Bowel Sounds. absent: Tenderness - Extremities Exam Extremities Exam: Pedal Edema - Neurological Exam Neurological Exam: Alert, Awake, Oriented x3 - Psychiatric Exam Psychiatric exam: Normal Affect, Normal Mood - Skin Skin Exam: Normal Color Assessment and Plan - Assessment and Plan (Free Text) Assessment: 62 yo female from a detention, with hx of DM II, schizophrenia and HTN; initially admitted for sepsis and pneumonia. Initial labs were significant for leukocytosis with bandemia; CXR showed atelectasis vs infiltrate and pt was started on vancomycin, zosyn and zithromax IV. During the admission, the pt was found to be bradycardic and became unresponsive. A Code Blue was called for suspected Pulseless Electrical Activity; compressions done ,was achieved after 3 rounds of epinephrine. She was then transferred to ICU. When weaned off sedation, mental status changes appreciated per family when compared to her baseline believed to be effect of being off her psych medication. Patient medically stable but is currently undergoing titration of clozaril. Daughter willing to be POA however, patient is not able to sign over POA in current condition. Plan: 1. Altered Mental Status - Improved significantly since restarting Clozapine. Verbalizing more. - empirically treated with IV Acyclovir; Lumbar puncture unremarkable and Cx negative - MRI of Brain - no signs of Stroke nor Encephalitis - AMS may be due to Schizophrenia as antipsychotic medication was on hold. Started on Clozapine at low dose with gradual increase and close monitoring of WBC count. Psych on board. - Clozapine 50mg po daily, next wean 09/03. 2. Urinary Retention - Ray in place, good urine output. Ray discontinued today. Will reassess for any retention in afternoon and consider bladder scan if still retaining. - Flomax 0.4mg - Bladder training in progress 2. Electrolyte imbalance - resolved - Hypokalemia- resolved, 3.9 - Hypernatremia-stable, 148 - f/u AM BMP 3. JOSHUA -resolved - Cr 0.8 4. Hypertension - better controlled today - cont Lasix, Amlodipine, Coreg, Hydralazine, Cl and Losartan - c/w monitoring BP 5. DM - c/w Iinsulin lispro correction scale - c/w Levemir 10 Units SC HS 6. Localization-related (focal) (partial) symptomatic epilepsy - as per neuro due to pts infection and antipsychotic lowered seizure threshold; appear to have resolved now - cont Depakote and Vimpat 7.Hypothyrodism -Chronic, uncontrolled -Levothyroxine 50mcg daily 8. Schizophrenia - Chronic - c/w clozapine 50 mg PO daily, to be titrated weekly by psychiatry. Next titration is 09/03. - Home meds held for now 9. DVT prophylaxis - Lovenox 40mg SC QD - SCDs 10. Deconditioning - PT/OT: improved bed mobility, able to completed lateral steps 11. Dispo planning -Subacute rehab as per PT <Baylee Garcia - Last Filed: 09/02/18 18:11> Objective - Vital Signs/Intake and Output Vital Signs (last 24 hours): Temp Pulse Resp BP Pulse Ox 98.2 F 61 20 126/70 99 09/02/18 16:24 09/02/18 16:24 09/02/18 16:24 09/02/18 16:24 09/02/18 16:24 - Medications Medications: Current Medications Acetaminophen (Tylenol 325mg Tab) 650 mg PO Q6 PRN PRN Reason: Fever >100.4 F Last Admin: 08/30/18 17:12 Dose: 650 mg Acetaminophen (Tylenol 650mg/20.3ml Solution Ud) 650 mg PO Q6 PRN PRN Reason: Temperature Last Admin: 08/18/18 11:22 Dose: 650 mg Albuterol/Ipratropium (Duoneb 3 Mg/0.5 Mg (3 Ml) Ud) 3 ml INH RQ6 PRN PRN Reason: Shortness of Breath Last Admin: 08/24/18 00:07 Dose: 3 ml Amlodipine Besylate (Norvasc) 10 mg PO DAILY [facility] Last Admin: 09/02/18 08:40 Dose: 10 mg Atorvastatin Calcium (Lipitor) 10 mg PO HS [facility] Last Admin: 09/01/18 21:17 Dose: 10 mg Carvedilol (Coreg) 25 mg PO Q12 [facility] Last Admin: 09/02/18 08:58 Dose: 25 mg Clozapine (Clozaril) 50 mg PO [facility] Last Admin: 09/01/18 21:17 Dose: 50 mg Dextrose (Dextrose 50% Inj) 0 ml IV STAT PRN; Protocol PRN Reason: Hypoglycemia Protocol Last Admin: 08/25/18 16:44 Dose: 50 ml Dextrose (Glutose 15) 0 gm PO ONCE PRN; Protocol PRN Reason: Hypoglycemia Protocol Divalproex Sodium (Depakote Er(Once Daily)) 2,000 mg PO [facility] Last Admin: 09/01/18 21:16 Dose: 2,000 mg Enoxaparin Sodium (Lovenox) 40 mg SC DAILY [facility]; Protocol Last Admin: 09/02/18 08:39 Dose: 40 mg Escitalopram Oxalate (Lexapro) 10 mg PO [facility] Last Admin: 09/01/18 21:16 Dose: 10 mg Glucagon (Glucagen Diagnostic Kit) 0 mg IM STAT PRN; Protocol PRN Reason: Hypoglycemia Protocol Hydralazine HCl (Apresoline) 20 mg PO TID [facility] Last Admin: 09/02/18 17:30 Dose: 20 mg Ibuprofen (Motrin Tab) 600 mg PO Q6 PRN PRN Reason: Fever >100.4 F Last Admin: 08/19/18 07:23 Dose: 600 mg Insulin Detemir (Levemir) 10 units SC [facility] Last Admin: 09/01/18 22:00 Dose: Not Given Insulin Human Lispro (Humalog) 0 units SC [facility]; Protocol Last Admin: 09/02/18 16:09 Dose: Not Given Lacosamide (Vimpat) 100 mg PO Q12 [facility] Last Admin: 09/02/18 08:51 Dose: 100 mg Lactulose (Enulose) 20 gm PO Q12 PRN PRN Reason: Constipation Last Admin: 08/29/18 13:44 Dose: 20 gm Levothyroxine Sodium (Synthroid) 50 mcg PO DAILY@0630 [facility] Last Admin: 09/02/18 05:36 Dose: 50 mcg Losartan Potassium (Cozaar) 100 mg PO DAILY [facility] Last Admin: 09/02/18 08:41 Dose: 100 mg Metformin HCl (Glucophage) 850 mg PO BID [facility] Last Admin: 09/02/18 17:30 Dose: 850 mg Multivitamins/Minerals (Therapeutic-M Tab) 1 tab PO DAILY [facility] Last Admin: 09/02/18 08:41 Dose: 1 tab Tamsulosin HCl (Flomax) 0.4 mg PO DAILY [facility] Last Admin: 09/02/18 08:41 Dose: 0.4 mg - Labs Labs: 09/02/18 06:00 08/31/18 12:00 PT 12.2 Seconds (9.8-13.1) 08/04/18 00:30 INR 1.1 08/04/18 00:30 APTT 31.5 Seconds (25.6-37.1) 08/02/18 22:20 Attending/Attestation - Attestation I have personally seen and examined this patient.: Yes I have fully participated in the care of the patient.: Yes I have reviewed all pertinent clinical information, including history, physical exam and plan: Yes
[2018-09-02] MEDS: Divalproex 500 mg ER (ONCE DAILY formulation) PO SCH (22:33)
[2018-09-02] MEDS: Insulin Detemir 100 Units/ml Inj SC SCH (22:49)
[2018-09-03] MEDS: Levothyroxine 50 MCG TAB PO SCH (07:17)
[2018-09-03] MEDS: Enoxaparin 40 mg Syringe SC SCH (09:36)
[2018-09-03] MEDS: Multivitamin With Minerals Tab PO SCH (09:37)
[2018-09-03] MEDS: Insulin Lispro (humaLOG) 100 Units/ml Inj SC SCH ×4 (09:38→22:54)
[2018-09-03] MEDS: Lacosamide 50 MG Tab PO SCH ×2 (09:44→21:01)
--- NOTE | 2018-09-03 11:21 | CP.PCM.PN ---
<Renetta Kunz - Last Filed: 09/03/18 11:16> Subjective - Date & Time of Evaluation Date of Evaluation: 09/03/18 Time of Evaluation: 08:00 - Subjective Subjective: Overnight events noted- pt failed voiding trial, olivera reinserted. Pt seen and examined this morning. Noted to be sleeping but arousable. Denies pain or discomfort. Speech is significantly improved- able to speak in complete sentences. Has been communicating needs well. 1:[address] denies any episodes of agitation. Has been participating in physical therapy. Objective - Vital Signs/Intake and Output Vital Signs (last 24 hours): Temp Pulse Resp BP Pulse Ox 98.7 F 63 20 129/75 97 09/03/18 09:30 09/03/18 09:30 09/03/18 09:30 09/03/18 09:30 09/03/18 09:30 - Medications Medications: Current Medications Acetaminophen (Tylenol 325mg Tab) 650 mg PO Q6 PRN PRN Reason: Fever >100.4 F Last Admin: 08/30/18 17:12 Dose: 650 mg Acetaminophen (Tylenol 650mg/20.3ml Solution Ud) 650 mg PO Q6 PRN PRN Reason: Temperature Last Admin: 08/18/18 11:22 Dose: 650 mg Albuterol/Ipratropium (Duoneb 3 Mg/0.5 Mg (3 Ml) Ud) 3 ml INH RQ6 PRN PRN Reason: Shortness of Breath Last Admin: 08/24/18 00:07 Dose: 3 ml Amlodipine Besylate (Norvasc) 10 mg PO DAILY [facility] Last Admin: 09/03/18 09:37 Dose: 10 mg Atorvastatin Calcium (Lipitor) 10 mg PO HS [facility] Last Admin: 09/02/18 21:05 Dose: 10 mg Carvedilol (Coreg) 25 mg PO Q12 [facility] Last Admin: 09/03/18 09:37 Dose: 25 mg Clozapine (Clozaril) 50 mg PO HS [facility] Last Admin: 09/02/18 21:05 Dose: 50 mg Dextrose (Dextrose 50% Inj) 0 ml IV STAT PRN; Protocol PRN Reason: Hypoglycemia Protocol Last Admin: 08/25/18 16:44 Dose: 50 ml Dextrose (Glutose 15) 0 gm PO ONCE PRN; Protocol PRN Reason: Hypoglycemia Protocol Divalproex Sodium (Depakote Er(Once Daily)) 2,000 mg PO [facility] Last Admin: 09/02/18 22:33 Dose: 2,000 mg Enoxaparin Sodium (Lovenox) 40 mg SC DAILY [facility]; Protocol Last Admin: 09/03/18 09:36 Dose: 40 mg Escitalopram Oxalate (Lexapro) 10 mg PO [facility] Last Admin: 09/02/18 21:05 Dose: 10 mg Glucagon (Glucagen Diagnostic Kit) 0 mg IM STAT PRN; Protocol PRN Reason: Hypoglycemia Protocol Hydralazine HCl (Apresoline) 20 mg PO TID [facility] Last Admin: 09/03/18 09:36 Dose: 20 mg Ibuprofen (Motrin Tab) 600 mg PO Q6 PRN PRN Reason: Fever >100.4 F Last Admin: 08/19/18 07:23 Dose: 600 mg Insulin Detemir (Levemir) 10 units SC [facility] Last Admin: 09/02/18 22:49 Dose: 10 u Insulin Human Lispro (Humalog) 0 units SC [facility]; Protocol Last Admin: 09/03/18 09:38 Dose: Not Given Lacosamide (Vimpat) 100 mg PO Q12 [facility] Last Admin: 09/03/18 09:44 Dose: 100 mg Lactulose (Enulose) 20 gm PO Q12 PRN PRN Reason: Constipation Last Admin: 08/29/18 13:44 Dose: 20 gm Levothyroxine Sodium (Synthroid) 50 mcg PO DAILY@0630 [facility] Last Admin: 09/03/18 07:17 Dose: 50 mcg Losartan Potassium (Cozaar) 100 mg PO DAILY [facility] Last Admin: 09/03/18 09:38 Dose: 100 mg Metformin HCl (Glucophage) 850 mg PO BID [facility] Last Admin: 09/03/18 09:37 Dose: 850 mg Multivitamins/Minerals (Therapeutic-M Tab) 1 tab PO DAILY [facility] Last Admin: 09/03/18 09:37 Dose: 1 tab Tamsulosin HCl (Flomax) 0.4 mg PO DAILY [facility] Last Admin: 09/03/18 09:38 Dose: 0.4 mg - Labs Labs: 09/02/18 06:00 08/31/18 12:00 PT 12.2 Seconds (9.8-13.1) 08/04/18 00:30 INR 1.1 10/30/18 00:30 APTT 31.5 Seconds (25.6-37.1) 08/02/18 22:20 - Constitutional Appears: Well, No Acute Distress - Head Exam Head Exam: NORMAL INSPECTION - Eye Exam Eye Exam: Normal appearance - ENT Exam ENT Exam: Mucous Membranes Moist - Respiratory Exam Respiratory Exam: Clear to Ausculation Bilateral. absent: Accessory Muscle Use, Rales, Wheezes - Cardiovascular Exam Cardiovascular Exam: REGULAR RHYTHM, +S1, +S2. absent: Murmur - GI/Abdominal Exam GI & Abdominal Exam: Soft, Normal Bowel Sounds. absent: Distended, Tenderness - Extremities Exam Extremities Exam: Normal Capillary Refill, Normal Inspection. absent: Calf Tenderness, Pedal Edema - Neurological Exam Neurological Exam: Alert, Awake, Oriented x3 Neuro motor strength exam: Left Upper Extremity: 5, Right Upper Extremity: 5, Left Lower Extremity: 5, Right Lower Extremity: 5 - Psychiatric Exam Psychiatric exam: Normal Affect. absent: Depressed, Flat Affect - Skin Skin Exam: Normal Color Assessment and Plan - Assessment and Plan (Free Text) Assessment: 62 yo female from a snf, with hx of DM II, schizophrenia and HTN; initially admitted for sepsis and pneumonia. Initial labs were significant for leukocytosis with bandemia; CXR showed atelectasis vs infiltrate and pt was started on vancomycin, zosyn and zithromax IV. During the admission, the pt was found to be bradycardic and became unresponsive. A Code Blue was called for suspected Pulseless Electrical Activity; compressions done ,was achieved after 3 rounds of epinephrine. She was then transferred to ICU. When weaned off se dation, mental status changes appreciated per family when compared to her baseline believed to be effect of being off her psych medication. Patient medically stable but is currently undergoing titration of clozaril. Daughter willing to be POA however, patient is not able to sign over POA in current condition. Plan: 1. Altered Mental Status - Improved significantly since restarting Clozapine. Verbalizing more. - Empirically treated with IV Acyclovir; Lumbar puncture unremarkable and Cx negative - MRI of Brain - no signs of Stroke nor Encephalitis - AMS may be due to Schizophrenia as antipsychotic medication was on hold. Started on Clozapine at low dose with gradual increase and close monitoring of WBC count. Psych on board. - Clozapine 50mg po daily, next wean 09/03. Dr. Cadena made aware 2. Urinary Retention - Failed voiding trial on 09/03. Olivera re-inserted. - Will continue with bladder training and re-assess - C/W Flomax 0.4mg 3. Hypertension - Normotensive - cont Lasix, Amlodipine, Coreg, Hydralazine, and Losartan - c/w monitoring BP 4. DM - c/w Iinsulin lispro correction scale - c/w Levemir 10 Units SC HS 5. Localization-related (focal) (partial) symptomatic epilepsy - as per neuro due to pts infection and antipsychotic lowered seizure threshold; appear to have resolved now - cont Depakote and Vimpat 6.Hypothyrodism -Chronic, uncontrolled -Levothyroxine 50mcg daily 7. Schizophrenia - Chronic - c/w clozapine 50 mg PO daily, to be titrated weekly by psychiatry. Next titration is 09/03. - Home meds held for now 8. DVT prophylaxis - Lovenox 40mg SC QD - SCDs 9. Deconditioning - PT/OT: improved bed mobility, able to completed lateral steps 10. Dispo planning -Subacute rehab as per PT 11. Diabetic Diet <Baylee Garcia - Last Filed: 09/03/18 16:39> Objective - Vital Signs/Intake and Output Vital Signs (last 24 hours): Temp Pulse Resp BP Pulse Ox 97.5 F L 64 18 113/69 96 09/03/18 16:29 09/03/18 16:29 09/03/18 16:29 09/03/18 16:29 09/03/18 16:29 - Medications Medications: Current Medications Acetaminophen (Tylenol 325mg Tab) 650 mg PO Q6 PRN PRN Reason: Fever >100.4 F Last Admin: 08/30/18 17:12 Dose: 650 mg Acetaminophen (Tylenol 650mg/20.3ml Solution Ud) 650 mg PO Q6 PRN PRN Reason: Temperature Last Admin: 08/18/18 11:22 Dose: 650 mg Albuterol/Ipratropium (Duoneb 3 Mg/0.5 Mg (3 Ml) Ud) 3 ml INH RQ6 PRN PRN Reason: Shortness of Breath Last Admin: 08/24/18 00:07 Dose: 3 ml Amlodipine Besylate (Norvasc) 10 mg PO DAILY [facility] Last Admin: 09/03/18 09:37 Dose: 10 mg Atorvastatin Calcium (Lipitor) 10 mg PO HS [facility] Last Admin: 09/02/18 21:05 Dose: 10 mg Carvedilol (Coreg) 25 mg PO Q12 [facility] Last Admin: 09/03/18 09:37 Dose: 25 mg Clozapine (Clozaril) 50 mg PO Q12 [facility] Dextrose (Dextrose 50% Inj) 0 ml IV STAT PRN; Protocol PRN Reason: Hypoglycemia Protocol Last Admin: 08/25/18 16:44 Dose: 50 ml Dextrose (Glutose 15) 0 gm PO ONCE PRN; Protocol PRN Reason: Hypoglycemia Protocol Divalproex Sodium (Depakote Er(Once Daily)) 2,000 mg PO [facility] Last Admin: 09/02/18 22:33 Dose: 2,000 mg Enoxaparin Sodium (Lovenox) 40 mg SC DAILY [facility]; Protocol Last Admin: 09/03/18 09:36 Dose: 40 mg Escitalopram Oxalate (Lexapro) 10 mg PO [facility] Last Admin: 09/02/18 21:05 Dose: 10 mg Glucagon (Glucagen Diagnostic Kit) 0 mg IM STAT PRN; Protocol PRN Reason: Hypoglycemia Protocol Hydralazine HCl (Apresoline) 20 mg PO TID [facility] Last Admin: 09/03/18 13:31 Dose: 20 mg Ibuprofen (Motrin Tab) 600 mg PO Q6 PRN PRN Reason: Fever >100.4 F Last Admin: 08/19/18 07:23 Dose: 600 mg Insulin Detemir (Levemir) 10 units SC [facility] Last Admin: 09/02/18 22:49 Dose: 10 u Insulin Human Lispro (Humalog) 0 units SC [facility]; Protocol Last Admin: 09/03/18 13:28 Dose: 4 units Lacosamide (Vimpat) 100 mg PO Q12 [facility] Last Admin: 09/03/18 09:44 Dose: 100 mg Lactulose (Enulose) 20 gm PO Q12 PRN PRN Reason: Constipation Last Admin: 08/29/18 13:44 Dose: 20 gm Levothyroxine Sodium (Synthroid) 50 mcg PO DAILY@0630 [facility] Last Admin: 09/03/18 07:17 Dose: 50 mcg Losartan Potassium (Cozaar) 100 mg PO DAILY [facility] Last Admin: 09/03/18 09:38 Dose: 100 mg Metformin HCl (Glucophage) 850 mg PO BID [facility] Last Admin: 09/03/18 09:37 Dose: 850 mg Multivitamins/Minerals (Therapeutic-M Tab) 1 tab PO DAILY [facility] Last Admin: 09/03/18 09:37 Dose: 1 tab Tamsulosin HCl (Flomax) 0.4 mg PO DAILY [facility] Last Admin: 09/03/18 09:38 Dose: 0.4 mg - Labs Labs: 09/02/18 06:00 08/31/18 12:00 PT 12.2 Seconds (9.8-13.1) 08/04/18 00:30 INR 1.1 08/04/18 00:30 APTT 31.5 Seconds (25.6-37.1) 08/02/18 22:20 Attending/Attestation - Attestation I have personally seen and examined this patient.: Yes I have fully participated in the care of the patient.: Yes I have reviewed all pertinent clinical information, including history, physical exam and plan: Yes
[2018-09-03] MEDS: Divalproex 500 mg ER (ONCE DAILY formulation) PO SCH (21:09)
[2018-09-03] MEDS: Insulin Detemir 100 Units/ml Inj SC SCH (22:55)
[2018-09-04 06:00] LABS: BASO % 0.7 % (0.0-2.0); EOS # 0.1 K/uL (0.0-0.7); HEMOGLOBIN 9.8 g/dL (12.0-16.0); LYMPH # 2.6 K/uL (1.0-4.3); LYMPH % 53.8 % (20.0-40.0); MEAN CELL VOLUME 84.4 fl (81.0-99.0); MEAN CORPUSCULAR HEMOGLOBIN 27.8 pg (27.0-31.0); MEAN CORPUSCULAR HGB CONC 32.9 g/dL (33.0-37.0); MEAN PLATELET VOLUME 9.4 fl (7.2-11.7); MONO # 0.5 K/uL (0.0-0.8); MONO % 10.4 % (0.0-10.0); NEUT # 1.5 K/uL (1.8-7.0); NEUT % 32.1 % (50.0-75.0); NRBC % 0.2 % (0.0-0.0); RBC 3.55 Mil/uL (3.80-5.20); RED CELL DISTRIBUTION WIDTH 18.3 % (11.5-14.5); WHITE BLOOD COUNT 4.8 K/uL (4.8-10.8)
[2018-09-04] MEDS: Insulin Lispro (humaLOG) 100 Units/ml Inj SC SCH ×4 (07:01→22:32)
[2018-09-04] MEDS: Levothyroxine 50 MCG TAB PO SCH (07:35)
--- NOTE | 2018-09-04 11:14 | CP.PCM.CON ---
History of Present Illness - History of Present Illness History of Present Illness: Psychiatry consult follow-up note CC: "I don't talk to stupid people." HPI: 62 yo female w/ PMH of schizophrenia, HTN, DM, initially admitted for sepsis and PNA. Patient currently uncooperative with interview, is arousable but closes her eyes and stated that she doesn't talk to stupid people, referring to technical report writer. Unable to perform full psychiatric evaluation due to lack of cooperation. Impression: 62 yo female w/ PMH of schizophrenia, r/o acute delirium vs psychiatric decompensation. -Patient cannot consent to voluntary psychiatric admission at this time -Recommend to stop Clozapine due to drop in WBC/ANC -Recommend to start Risperdal 0.5 mg PO HS and increase by 0.5 mg each day for the next 4 days; call for psychiatric re-evaluation Past Patient History - Past Medical History & Family History Past Medical History?: Yes - Past Social History Smoking Status: Light Smoker < 10 Cigarettes Daily - CARDIAC Hx Hypercholesterolemia: Yes Hx Hypertension: Yes - PULMONARY Hx Respiratory Disorders: Yes Hx Pneumonia: Yes - NEUROLOGICAL Hx Neurological Disorder: No - HEENT Hx HEENT Problems: No - RENAL Hx Chronic Kidney Disease: No - ENDOCRINE/METABOLIC Hx Endocrine Disorders: Yes Hx Diabetes Mellitus Type 2: Yes Hx Hypothyroidism: Yes - HEMATOLOGICAL/ONCOLOGICAL Hx Blood Disorders: No Hx AIDS: No Hx Human Immunodeficiency Virus (HIV): No - INTEGUMENTARY Hx Dermatological Problems: No - MUSCULOSKELETAL/RHEUMATOLOGICAL Hx Musculoskeletal Disorders: No Hx Falls: Yes - GASTROINTESTINAL Hx Gastritis: Yes - GENITOURINARY/GYNECOLOGICAL Hx Genitourinary Disorders: No - PSYCHIATRIC Hx Psychophysiologic Disorder: Yes Hx Depression: Yes Hx Schizophrenia: Yes Hx Substance Use: No - SURGICAL HISTORY Hx Surgeries: No - ANESTHESIA Hx Anesthesia: No Meds Allergies/Adverse Reactions: Allergies Allergy/AdvReac Type Severity Reaction Status Date / Time No Known Allergies Allergy Verified 08/02/18 21:49 - Medications Medications: Current Medications Acetaminophen (Tylenol 325mg Tab) 650 mg PO Q6 PRN PRN Reason: Fever >100.4 F Last Admin: 08/30/18 17:12 Dose: 650 mg Acetaminophen (Tylenol 650mg/20.3ml Solution Ud) 650 mg PO Q6 PRN PRN Reason: Temperature Last Admin: 08/18/18 11:22 Dose: 650 mg Albuterol/Ipratropium (Duoneb 3 Mg/0.5 Mg (3 Ml) Ud) 3 ml INH RQ6 PRN PRN Reason: Shortness of Breath Last Admin: 08/24/18 00:07 Dose: 3 ml Amlodipine Besylate (Norvasc) 10 mg PO DAILY [facility] Last Admin: 09/03/18 09:37 Dose: 10 mg Atorvastatin Calcium (Lipitor) 10 mg PO HS [facility] Last Admin: 09/03/18 21:09 Dose: 10 mg Carvedilol (Coreg) 25 mg PO Q12 [facility] Last Admin: 09/03/18 21:02 Dose: 25 mg Clozapine (Clozaril) 50 mg PO HS [facility] Dextrose (Dextrose 50% Inj) 0 ml IV STAT PRN; Protocol PRN Reason: Hypoglycemia Protocol Last Admin: 08/25/18 16:44 Dose: 50 ml Dextrose (Glutose 15) 0 gm PO ONCE PRN; Protocol PRN Reason: Hypoglycemia Protocol Divalproex Sodium (Depakote Er(Once Daily)) 2,000 mg PO [facility] Last Admin: 09/03/18 21:09 Dose: 2,000 mg Enoxaparin Sodium (Lovenox) 40 mg SC DAILY [facility]; Protocol Last Admin: 09/03/18 09:36 Dose: 40 mg Escitalopram Oxalate (Lexapro) 10 mg PO [facility] Last Admin: 09/03/18 21:09 Dose: 10 mg Glucagon (Glucagen Diagnostic Kit) 0 mg IM STAT PRN; Protocol PRN Reason: Hypoglycemia Protocol Hydralazine HCl (Apresoline) 20 mg PO TID [facility] Last Admin: 09/03/18 17:31 Dose: 20 mg Ibuprofen (Motrin Tab) 600 mg PO Q6 PRN PRN Reason: Fever >100.4 F Last Admin: 08/19/18 07:23 Dose: 600 mg Insulin Detemir (Levemir) 10 units SC [facility] Last Admin: 09/03/18 22:55 Dose: 10 u Insulin Human Lispro (Humalog) 0 units SC [facility]; Protocol Last Admin: 09/04/18 07:01 Dose: Not Given Lacosamide (Vimpat) 100 mg PO Q12 [facility] Last Admin: 09/03/18 21:01 Dose: 100 mg Lactulose (Enulose) 20 gm PO Q12 PRN PRN Reason: Constipation Last Admin: 08/29/18 13:44 Dose: 20 gm Levothyroxine Sodium (Synthroid) 50 mcg PO DAILY@0630 [facility] Last Admin: 09/04/18 07:35 Dose: 50 mcg Losartan Potassium (Cozaar) 100 mg PO DAILY [facility] Last Admin: 09/03/18 09:38 Dose: 100 mg Metformin HCl (Glucophage) 850 mg PO BID [facility] Last Admin: 09/03/18 17:30 Dose: 850 mg Multivitamins/Minerals (Therapeutic-M Tab) 1 tab PO DAILY [facility] Last Admin: 09/03/18 09:37 Dose: 1 tab Tamsulosin HCl (Flomax) 0.4 mg PO DAILY [facility] Last Admin: 09/03/18 09:38 Dose: 0.4 mg Results - Vital Signs Recent Vital Signs: Last Vital Signs Temp 97.7 F 09/04/18 09:18 Pulse 67 09/04/18 09:18 Resp 21 09/04/18 09:18 BP 133/60 09/04/18 09:18 Pulse Ox 97 09/04/18 09:18 - Labs Result Diagrams: 09/04/18 05:50 09/04/18 11:15 Labs: Laboratory Results - last 24 hr 09/03/18 09/03/18 09/03/18 11:26 15:35 22:08 WBC RBC Hgb Hct MCV MCH MCHC RDW Plt Count MPV Neut % (Auto) Lymph % (Auto) [place] % (Auto) Eos % (Auto) Baso % (Auto) Neut # (Auto) Lymph # (Auto) [place] # (Auto) Eos # (Auto) Baso # (Auto) POC Glucose (mg/dL) 205 H 79 144 H 09/04/18 09/04/18 05:36 05:50 WBC 4.8 RBC 3.55 L Hgb 9.8 L Hct 30.0 L MCV 84.4 MCH 27.8 MCHC 32.9 L RDW 18.3 H Plt Count 197 MPV 9.4 Neut % (Auto) 32.1 L Lymph % (Auto) 53.8 H [place] % (Auto) 10.4 H Eos % (Auto) 3.0 Baso % (Auto) 0.7 Neut # (Auto) 1.5 L Lymph # (Auto) 2.6 [place] # (Auto) 0.5 Eos # (Auto) 0.1 Baso # (Auto) 0.0 POC Glucose (mg/dL) 124 H
--- NOTE | 2018-09-04 11:24 | CP.PCM.PN ---
Subjective - Date & Time of Evaluation Date of Evaluation: 09/04/18 Time of Evaluation: 07:30 - Subjective Subjective: Pt is seen and examined at bedside. Upon seeing patient she was complaining of SOB, I checked oxygen level, it was running in the low 90s, Put her on 2L nasal [place]ola oxygen, her oxygen saturation improving now its running around 98-99%. Pt SOB have improved. Pt have no other complain, denies fever, chills ,chest pain, abd pain, diarrhea, constipation, dysuria and polyuria. Objective - Vital Signs/Intake and Output Vital Signs (last 24 hours): Temp Pulse Resp BP Pulse Ox 97.7 F 67 21 133/60 97 09/04/18 09:18 09/04/18 09:18 09/04/18 09:18 09/04/18 09:18 09/04/18 09:18 - Medications Medications: Current Medications Acetaminophen (Tylenol 325mg Tab) 650 mg PO Q6 PRN PRN Reason: Fever >100.4 F Last Admin: 08/30/18 17:12 Dose: 650 mg Acetaminophen (Tylenol 650mg/20.3ml Solution Ud) 650 mg PO Q6 PRN PRN Reason: Temperature Last Admin: 08/18/18 11:22 Dose: 650 mg Albuterol/Ipratropium (Duoneb 3 Mg/0.5 Mg (3 Ml) Ud) 3 ml INH RQ6 PRN PRN Reason: Shortness of Breath Last Admin: 08/24/18 00:07 Dose: 3 ml Amlodipine Besylate (Norvasc) 10 mg PO DAILY [facility] Last Admin: 09/03/18 09:37 Dose: 10 mg Atorvastatin Calcium (Lipitor) 10 mg PO HS [facility] Last Admin: 09/03/18 21:09 Dose: 10 mg Carvedilol (Coreg) 25 mg PO Q12 [facility] Last Admin: 09/03/18 21:02 Dose: 25 mg Clozapine (Clozaril) 50 mg PO HS [facility] Dextrose (Dextrose 50% Inj) 0 ml IV STAT PRN; Protocol PRN Reason: Hypoglycemia Protocol Last Admin: 08/25/18 16:44 Dose: 50 ml Dextrose (Glutose 15) 0 gm PO ONCE PRN; Protocol PRN Reason: Hypoglycemia Protocol Divalproex Sodium (Depakote Er(Once Daily)) 2,000 mg PO HS [facility] Last Admin: 09/03/18 21:09 Dose: 2,000 mg Enoxaparin Sodium (Lovenox) 40 mg SC DAILY [facility]; Protocol Last Admin: 09/03/18 09:36 Dose: 40 mg Escitalopram Oxalate (Lexapro) 10 mg PO HS [facility] Last Admin: 09/03/18 21:09 Dose: 10 mg Glucagon (Glucagen Diagnostic Kit) 0 mg IM STAT PRN; Protocol PRN Reason: Hypoglycemia Protocol Hydralazine HCl (Apresoline) 20 mg PO TID [facility] Last Admin: 09/03/18 17:31 Dose: 20 mg Ibuprofen (Motrin Tab) 600 mg PO Q6 PRN PRN Reason: Fever >100.4 F Last Admin: 08/19/18 07:23 Dose: 600 mg Insulin Detemir (Levemir) 10 units SC [facility] Last Admin: 09/03/18 22:55 Dose: 10 u Insulin Human Lispro (Humalog) 0 units SC [facility]; Protocol Last Admin: 09/04/18 07:01 Dose: Not Given Lacosamide (Vimpat) 100 mg PO Q12 [facility] Last Admin: 09/03/18 21:01 Dose: 100 mg Lactulose (Enulose) 20 gm PO Q12 PRN PRN Reason: Constipation Last Admin: 08/29/18 13:44 Dose: 20 gm Levothyroxine Sodium (Synthroid) 50 mcg PO DAILY@0630 [facility] Last Admin: 09/04/18 07:35 Dose: 50 mcg Losartan Potassium (Cozaar) 100 mg PO DAILY [facility] Last Admin: 09/03/18 09:38 Dose: 100 mg Metformin HCl (Glucophage) 850 mg PO BID [facility] Last Admin: 09/03/18 17:30 Dose: 850 mg Multivitamins/Minerals (Therapeutic-M Tab) 1 tab PO DAILY [facility] Last Admin: 09/03/18 09:37 Dose: 1 tab Tamsulosin HCl (Flomax) 0.4 mg PO DAILY [facility] Last Admin: 09/03/18 09:38 Dose: 0.4 mg - Labs Labs: 09/04/18 05:50 08/31/18 12:00 PT 12.2 Seconds (9.8-13.1) 08/04/18 00:30 INR 1.1 08/04/18 00:30 APTT 31.5 Seconds (25.6-37.1) 08/02/18 22:20 - Constitutional Appears: Well, Agitated - Head Exam Head Exam: ATRAUMATIC, NORMAL INSPECTION, NORMOCEPHALIC - Eye Exam Eye Exam: EOMI, Normal appearance, PERRL Pupil Exam: NORMAL ACCOMODATION, PERRL - ENT Exam ENT Exam: Mucous Membranes Moist, Normal Exam - Neck Exam Neck Exam: Full ROM, Normal Inspection - Respiratory Exam Respiratory Exam: Clear to Ausculation Bilateral, NORMAL BREATHING PATTERN - Cardiovascular Exam Cardiovascular Exam: REGULAR RHYTHM, +S1, +S2 - GI/Abdominal Exam GI & Abdominal Exam: Soft, Normal Bowel Sounds. absent: Tenderness - Extremities Exam Extremities Exam: Full ROM, Normal Capillary Refill, Normal Inspection. absent: Calf Tenderness - Back Exam Back Exam: NORMAL INSPECTION. absent: CVA tenderness (L), CVA tenderness (R) - Neurological Exam Neurological Exam: Awake - Psychiatric Exam Psychiatric exam: Agitated Additional comments: mild agitation - Skin Skin Exam: Dry, Intact, Normal Color, Warm Assessment and Plan - Assessment and Plan (Free Text) Assessment: Assessment: 62 yo female from a [facility], with hx of DM II, schizophrenia and HTN; initially admitted for sepsis and pneumonia. Initial labs were significant for leukocytosis with bandemia; CXR showed atelectasis vs infiltrate and pt was started on vancomycin, zosyn and zithromax IV. During the admission, the pt was found to be bradycardic and became unresponsive. A Code Blue was called for suspected Pulseless Electrical Activity; compressions done ,was achieved after 3 rounds of epinephrine. She was then transferred to ICU. When weaned off sedation, mental status changes appreciated per family when compared to her baseline believed to be effect of being off her psych medication. Patient medically stable but is currently undergoing titration of clozaril. Daughter willing to be POA however, patient is not able to sign over POA in current condition. Plan: 1. Altered Mental Status - Improved significantly since restarting Clozapine. Verbalizing more. - Empirically treated with IV Acyclovir; Lumbar puncture unremarkable and Cx negative - MRI of Brain - no signs of Stroke nor Encephalitis - AMS may be due to Schizophrenia as antipsychotic medication was on hold. Started on Clozapine at low dose with gradual increase and close monitoring of WBC count. Psych on board. - As per Psych Dr. Williamson, will discontinue Clozapine 50mg, and increase Risperdal 0.5 daily. 2. Urinary Retention - Failed voiding trial on 09/03. Ray re-inserted. - Will continue with bladder training and re-assess, Urology consulted, Will follow up recommendation ( Dr. Dominguez) - C/W Flomax 0.4mg 3. Hypertension - Normotensive - cont Lasix, Amlodipine, Coreg, Hydralazine, and Losartan - c/w monitoring BP 4. DM - c/w Iinsulin lispro correction scale - c/w Levemir 10 Units SC HS 5. Localization-related (focal) (partial) symptomatic epilepsy - as per neuro due to pts infection and antipsychotics lowered seizure threshold; appear to have resolved now - cont Depakote and Vimpat 6.Hypothyrodism -Chronic, uncontrolled -Levothyroxine 50mcg daily 7. Schizophrenia - Chronic - c/w clozapine 50 mg PO daily, to be titrated weekly by psychiatry. Next titration is 09/03. - Home meds held for now 8. DVT prophylaxis - Lovenox 40mg SC QD - SCDs 9. Deconditioning - PT/OT: improved bed mobility, able to completed lateral steps 10. Dispo planning -Subacute rehab as per PT 11. Diabetic Diet
[2018-09-04 11:43] LABS: BLOOD UREA NITROGEN 5 mg/dl (7-17); CALCIUM 8.7 mg/dL (8.4-10.2); GFR NON-AFRICAN AMERICAN > 60
[2018-09-04] MEDS: Multivitamin With Minerals Tab PO SCH (12:50)
[2018-09-04] MEDS: Lacosamide 50 MG Tab PO SCH ×2 (12:53→22:08)
[2018-09-04] MEDS: Enoxaparin 40 mg Syringe SC SCH (12:53)
--- NOTE | 2018-09-04 14:20 | RAD ---
Date of service: 09/04/2018 HISTORY: dyspnea COMPARISON: 08/19/2018. single-view chest 08/19/2018 CT thorax FINDINGS: LUNGS: No active pulmonary disease. PLEURA: No significant pleural effusion identified, no pneumothorax apparent. CARDIOVASCULAR: No atherosclerotic calcification present Normal. OSSEOUS STRUCTURES: No significant abnormalities. VISUALIZED UPPER ABDOMEN: Normal. OTHER FINDINGS: None. IMPRESSION: No active disease. Resolution of right lower lobe infiltrate/atelectasis.
[2018-09-04] MEDS: Risperidone M tab 0.5MG PO SCH (22:01)
[2018-09-04] MEDS: Divalproex 500 mg ER (ONCE DAILY formulation) PO SCH (22:09)
[2018-09-04] MEDS: Insulin Detemir 100 Units/ml Inj SC SCH (23:00)
[2018-09-05] MEDS: Levothyroxine 50 MCG TAB PO SCH (06:29)
[2018-09-05] MEDS: Insulin Lispro (humaLOG) 100 Units/ml Inj SC SCH ×4 (06:58→21:36)
[2018-09-05] MEDS: Risperidone M tab 0.5MG PO SCH ×2 (08:36→21:28)
[2018-09-05] MEDS: Enoxaparin 40 mg Syringe SC SCH (08:37)
[2018-09-05] MEDS: Multivitamin With Minerals Tab PO SCH (08:38)
[2018-09-05] MEDS: Lacosamide 50 MG Tab PO SCH ×2 (08:41→21:26)
--- NOTE | 2018-09-05 11:54 | CP.PCM.PN ---
<Zi Naranjo - Last Filed: 09/05/18 15:27> Subjective - Date & Time of Evaluation Date of Evaluation: 09/05/18 Time of Evaluation: 08:40 - Subjective Subjective: Pt seen and examined at bedside. Per [employer]: pt was able to ambulate to toilet, experienced normal, solid bowel movement. Ray in place with bladder training. Improving mental alertness and responsiveness. Objective - Vital Signs/Intake and Output Vital Signs (last 24 hours): Temp Pulse Resp BP Pulse Ox 97.9 F 61 20 147/71 96 09/05/18 09:00 09/05/18 09:00 09/05/18 09:00 09/05/18 09:00 09/05/18 09:00 - Medications Medications: Current Medications Acetaminophen (Tylenol 325mg Tab) 650 mg PO Q6 PRN PRN Reason: Fever >100.4 F Last Admin: 08/30/18 17:12 Dose: 650 mg Acetaminophen (Tylenol 650mg/20.3ml Solution Ud) 650 mg PO Q6 PRN PRN Reason: Temperature Last Admin: 08/18/18 11:22 Dose: 650 mg Albuterol/Ipratropium (Duoneb 3 Mg/0.5 Mg (3 Ml) Ud) 3 ml INH RQ6 PRN PRN Reason: Shortness of Breath Last Admin: 08/24/18 00:07 Dose: 3 ml Amlodipine Besylate (Norvasc) 10 mg PO DAILY [facility] Last Admin: 09/05/18 08:37 Dose: 10 mg Atorvastatin Calcium (Lipitor) 10 mg PO HS [facility] Last Admin: 09/04/18 22:09 Dose: 10 mg Carvedilol (Coreg) 25 mg PO Q12 [facility] Last Admin: 09/05/18 08:38 Dose: 25 mg Dextrose (Dextrose 50% Inj) 0 ml IV STAT PRN; Protocol PRN Reason: Hypoglycemia Protocol Last Admin: 08/25/18 16:44 Dose: 50 ml Dextrose (Glutose 15) 0 gm PO ONCE PRN; Protocol PRN Reason: Hypoglycemia Protocol Divalproex Sodium (Depakote Er(Once Daily)) 2,000 mg PO HS [facility] Last Admin: 09/04/18 22:09 Dose: 2,000 mg Enoxaparin Sodium (Lovenox) 40 mg SC DAILY [facility]; Protocol Last Admin: 09/05/18 08:37 Dose: 40 mg Escitalopram Oxalate (Lexapro) 10 mg PO HS [facility] Last Admin: 09/04/18 22:09 Dose: 10 mg Glucagon (Glucagen Diagnostic Kit) 0 mg IM STAT PRN; Protocol PRN Reason: Hypoglycemia Protocol Hydralazine HCl (Apresoline) 20 mg PO TID [facility] Last Admin: 09/05/18 08:38 Dose: 20 mg Ibuprofen (Motrin Tab) 600 mg PO Q6 PRN PRN Reason: Fever >100.4 F Last Admin: 08/19/18 07:23 Dose: 600 mg Insulin Detemir (Levemir) 10 units SC [facility] Last Admin: 09/04/18 23:00 Dose: 10 u Insulin Human Lispro (Humalog) 0 units SC [facility]; Protocol Last Admin: 09/05/18 06:58 Dose: Not Given Lacosamide (Vimpat) 100 mg PO Q12 [facility] Last Admin: 09/05/18 08:41 Dose: 100 mg Lactulose (Enulose) 20 gm PO Q12 PRN PRN Reason: Constipation Last Admin: 08/29/18 13:44 Dose: 20 gm Levothyroxine Sodium (Synthroid) 50 mcg PO DAILY@0630 [facility] Last Admin: 09/05/18 06:29 Dose: 50 mcg Losartan Potassium (Cozaar) 100 mg PO DAILY [facility] Last Admin: 09/05/18 08:36 Dose: 100 mg Metformin HCl (Glucophage) 850 mg PO BID [facility] Last Admin: 09/05/18 08:36 Dose: 850 mg Multivitamins/Minerals (Therapeutic-M Tab) 1 tab PO DAILY [facility] Last Admin: 09/05/18 08:38 Dose: 1 tab Risperidone (Risperdal M-Tab) 0.5 mg PO Q12 [facility] Last Admin: 09/05/18 08:36 Dose: 0.5 mg Tamsulosin HCl (Flomax) 0.4 mg PO DAILY [facility] Last Admin: 09/05/18 08:35 Dose: 0.4 mg - Labs Labs: 09/04/18 05:50 09/04/18 11:15 PT 12.2 Seconds (9.8-13.1) 08/04/18 00:30 INR 1.1 08/04/18 00:30 APTT 31.5 Seconds (25.6-37.1) 08/02/18 22:20 - Constitutional Appears: No Acute Distress - Eye Exam Eye Exam: EOMI - Respiratory Exam Respiratory Exam: Clear to Ausculation Bilateral, NORMAL BREATHING PATTERN. absent: Wheezes - Cardiovascular Exam Cardiovascular Exam: REGULAR RHYTHM, +S1, +S2 - GI/Abdominal Exam GI & Abdominal Exam: Soft, Normal Bowel Sounds. absent: Tenderness - Extremities Exam Extremities Exam: absent: Calf Tenderness - Neurological Exam Neurological Exam: Alert, Awake Assessment and Plan - Assessment and Plan (Free Text) Assessment: 62 [facility], with hx of DM II, schizophrenia and HTN; initially admitted for sepsis and pneumonia. Initial labs were significant for leukocytosis with bandemia; CXR showed atelectasis vs infiltrate and pt was started on vancomycin, zosyn and zithromax IV. During the admission, the pt was found to be bradycardic and became unresponsive. Code Blue was called for suspected Pulseless Electrical Activity; compressions done ,was achieved after 3 rounds of epinephrine. She was then transferred to ICU. When weaned off sedation, mental status changes appreciated per family when compared to her baseline believed to be effect of being off her psych medication. Patient was undergoing titration of clozaril, however, due to decline of WBC/ANC, clozaril was discontinued and Risperdal taper was started. Daughter willing to be POA however, patient is not able to sign over POA in current condition. Plan: 1. Altered Mental Status - Improved significantly since restarting Clozapine, however, decline in WBC/ANC, was d/c on 09/04 and Risperdal taper was tarted - s/p empirical treatment with IV Acyclovir - Lumbar puncture unremarkable and Cx negative - MRI of Brain - no signs of stroke nor encephalitis - AMS may be due to Schizophrenia - Psych Dr. Williamson: discontinued Clozapine 50mg, started Risperdal 0.5 mg PO QHS and increase by 0.5 daily for 4 days total. 2. Urinary Retention - Failed voiding trial on 09/03. Ray re-inserted. - Continue with bladder training - Urology Dr. Dominguez - C/W Flomax 0.4mg qdaily 3. Hypertension - Normotensive - cont Amlodipine, Coreg, Hydralazine, and Losartan - c/w monitoring BP 4. DM - c/w Iinsulin lispro correction scale - c/w Levemir 10 Units SC HS - Dysphagia, modified, diabetic diet 5. Localization-related (focal) (partial) symptomatic epilepsy - as per neuro due to pts infection and antipsychotics lowered seizure threshold; appear to have resolved now - cont Depakote and Vimpat 6.Hypothyrodism -Chronic, uncontrolled -Levothyroxine 50mcg daily 7. Schizophrenia - Chronic - Psych Dr. Williamson: discontinued Clozapine 50mg, started Risperdal 0.5 mg PO QHS and increase by 0.5 daily for 4 days total. 8. DVT prophylaxis - Lovenox 40mg SC QD - SCDs 9. Deconditioning - PT/OT: improved bed mobility, able to completed lateral steps 10. Dispo planning -Subacute rehab as per PT <Kera Naylor - Last Filed: 09/06/18 09:21> Objective - Vital Signs/Intake and Output Vital Signs (last 24 hours): Temp Pulse Resp BP Pulse Ox 97.9 F 64 20 131/68 97 09/06/18 08:16 09/06/18 08:16 09/06/18 08:16 09/06/18 08:16 09/06/18 08:16 - Medications Medications: Current Medications Acetaminophen (Tylenol 325mg Tab) 650 mg PO Q6 PRN PRN Reason: Fever >100.4 F Last Admin: 08/30/18 17:12 Dose: 650 mg Acetaminophen (Tylenol 650mg/20.3ml Solution Ud) 650 mg PO Q6 PRN PRN Reason: Temperature Last Admin: 08/18/18 11:22 Dose: 650 mg Albuterol/Ipratropium (Duoneb 3 Mg/0.5 Mg (3 Ml) Ud) 3 ml INH RQ6 PRN PRN Reason: Shortness of Breath Last Admin: 08/24/18 00:07 Dose: 3 ml Amlodipine Besylate (Norvasc) 10 mg PO DAILY [facility] Last Admin: 09/05/18 08:37 Dose: 10 mg Atorvastatin Calcium (Lipitor) 10 mg PO HS [facility] Last Admin: 09/05/18 21:27 Dose: 10 mg Carvedilol (Coreg) 25 mg PO Q12 [facility] Last Admin: 09/05/18 21:27 Dose: 25 mg Dextrose (Dextrose 50% Inj) 0 ml IV STAT PRN; Protocol PRN Reason: Hypoglycemia Protocol Last Admin: 08/25/18 16:44 Dose: 50 ml Dextrose (Glutose 15) 0 gm PO ONCE PRN; Protocol PRN Reason: Hypoglycemia Protocol Enoxaparin Sodium (Lovenox) 40 mg SC DAILY [facility]; Protocol Last Admin: 09/05/18 08:37 Dose: 40 mg Escitalopram Oxalate (Lexapro) 10 mg PO [facility] Last Admin: 09/05/18 21:28 Dose: 10 mg Glucagon (Glucagen Diagnostic Kit) 0 mg IM STAT PRN; Protocol PRN Reason: Hypoglycemia Protocol Hydralazine HCl (Apresoline) 20 mg PO TID [facility] Last Admin: 09/05/18 17:17 Dose: 20 mg Ibuprofen (Motrin Tab) 600 mg PO Q6 PRN PRN Reason: Fever >100.4 F Last Admin: 08/19/18 07:23 Dose: 600 mg Insulin Detemir (Levemir) 10 units SC [facility] Last Admin: 09/05/18 21:31 Dose: 10 u Insulin Human Lispro (Humalog) 0 units SC [facility]; Protocol Last Admin: 09/05/18 21:36 Dose: Not Given Lacosamide (Vimpat) 100 mg PO Q12 [facility] Last Admin: 09/05/18 21:26 Dose: 100 mg Lactulose (Enulose) 20 gm PO Q12 PRN PRN Reason: Constipation Last Admin: 08/29/18 13:44 Dose: 20 gm Levothyroxine Sodium (Synthroid) 50 mcg PO DAILY@0630 [facility] Last Admin: 09/06/18 06:41 Dose: 50 mcg Losartan Potassium (Cozaar) 100 mg PO DAILY [facility] Last Admin: 09/05/18 08:36 Dose: 100 mg Metformin HCl (Glucophage) 850 mg PO BID [facility] Last Admin: 09/05/18 17:18 Dose: 850 mg Multivitamins/Minerals (Therapeutic-M Tab) 1 tab PO DAILY [facility] Last Admin: 09/05/18 08:38 Dose: 1 tab Risperidone (Risperdal M-Tab) 0.5 mg PO Q12 [facility] Last Admin: 09/05/18 21:28 Dose: 0.5 mg Tamsulosin HCl (Flomax) 0.4 mg PO DAILY [facility] Last Admin: 09/05/18 08:35 Dose: 0.4 mg Valproate Sodium (Depakene Oral Soln) 500 mg PO QID [facility] Last Admin: 09/05/18 21:51 Dose: 500 mg - Labs Labs: 09/04/18 05:50 09/04/18 11:15 PT 12.2 Seconds (9.8-13.1) 08/04/18 00:30 INR 1.1 08/04/18 00:30 APTT 31.5 Seconds (25.6-37.1) 08/02/18 22:20 Attending/Attestation - Attestation I have personally seen and examined this patient.: Yes I have fully participated in the care of the patient.: Yes I have reviewed all pertinent clinical information, including history, physical exam and plan: Yes Notes (Text): 09/06/18 09:20 Seen examined and discussed with resident. Agree with findings and plan as above.
[2018-09-05] MEDS: Insulin Detemir 100 Units/ml Inj SC SCH (21:31)
[2018-09-05] MEDS: Valproic Acid 250 mg/5 ml UD Cup PO SCH (21:51)
[2018-09-06] MEDS: Levothyroxine 50 MCG TAB PO SCH (06:41)
--- NOTE | 2018-09-06 09:55 | CP.PCM.PN ---
<Kya Noguera - Last Filed: 09/06/18 13:52> Subjective - Date & Time of Evaluation Date of Evaluation: 09/06/18 Time of Evaluation: 09:40 - Subjective Subjective: Pt seen and examined at bedside. Per DIRECTOR OF GRANTS: pt was able to ambulate to toilet, experienced normal, solid bowel movement. Ray in place with bladder training. Improving mental alertness and responsiveness. Objective - Vital Signs/Intake and Output Vital Signs (last 24 hours): Temp Pulse Resp BP Pulse Ox 97.9 F 64 20 131/68 97 09/06/18 08:16 09/06/18 08:16 09/06/18 08:16 09/06/18 08:16 09/06/18 08:16 - Medications Medications: Current Medications Acetaminophen (Tylenol 325mg Tab) 650 mg PO Q6 PRN PRN Reason: Fever >100.4 F Last Admin: 08/30/18 17:12 Dose: 650 mg Acetaminophen (Tylenol 650mg/20.3ml Solution Ud) 650 mg PO Q6 PRN PRN Reason: Temperature Last Admin: 08/18/18 11:22 Dose: 650 mg Albuterol/Ipratropium (Duoneb 3 Mg/0.5 Mg (3 Ml) Ud) 3 ml INH RQ6 PRN PRN Reason: Shortness of Breath Last Admin: 08/24/18 00:07 Dose: 3 ml Amlodipine Besylate (Norvasc) 10 mg PO DAILY [facility] Last Admin: 09/05/18 08:37 Dose: 10 mg Atorvastatin Calcium (Lipitor) 10 mg PO HS [facility] Last Admin: 09/05/18 21:27 Dose: 10 mg Carvedilol (Coreg) 25 mg PO Q12 [facility] Last Admin: 09/05/18 21:27 Dose: 25 mg Dextrose (Dextrose 50% Inj) 0 ml IV STAT PRN; Protocol PRN Reason: Hypoglycemia Protocol Last Admin: 08/25/18 16:44 Dose: 50 ml Dextrose (Glutose 15) 0 gm PO ONCE PRN; Protocol PRN Reason: Hypoglycemia Protocol Enoxaparin Sodium (Lovenox) 40 mg SC DAILY [facility]; Protocol Last Admin: 09/05/18 08:37 Dose: 40 mg Escitalopram Oxalate (Lexapro) 10 mg PO HS [facility] Last Admin: 09/05/18 21:28 Dose: 10 mg Glucagon (Glucagen Diagnostic Kit) 0 mg IM STAT PRN; Protocol PRN Reason: Hypoglycemia Protocol Hydralazine HCl (Apresoline) 20 mg PO TID [facility] Last Admin: 09/05/18 17:17 Dose: 20 mg Ibuprofen (Motrin Tab) 600 mg PO Q6 PRN PRN Reason: Fever >100.4 F Last Admin: 08/19/18 07:23 Dose: 600 mg Insulin Detemir (Levemir) 10 units SC HS [facility] Last Admin: 09/05/18 21:31 Dose: 10 u Insulin Human Lispro (Humalog) 0 units SC [facility]; Protocol Last Admin: 09/05/18 21:36 Dose: Not Given Lacosamide (Vimpat) 100 mg PO Q12 [facility] Last Admin: 09/05/18 21:26 Dose: 100 mg Lactulose (Enulose) 20 gm PO Q12 PRN PRN Reason: Constipation Last Admin: 08/29/18 13:44 Dose: 20 gm Levothyroxine Sodium (Synthroid) 50 mcg PO DAILY@0630 [facility] Last Admin: 09/06/18 06:41 Dose: 50 mcg Losartan Potassium (Cozaar) 100 mg PO DAILY [facility] Last Admin: 09/05/18 08:36 Dose: 100 mg Metformin HCl (Glucophage) 850 mg PO BID [facility] Last Admin: 09/05/18 17:18 Dose: 850 mg Multivitamins/Minerals (Therapeutic-M Tab) 1 tab PO DAILY [facility] Last Admin: 09/05/18 08:38 Dose: 1 tab Risperidone (Risperdal M-Tab) 0.5 mg PO Q12 [facility] Last Admin: 09/05/18 21:28 Dose: 0.5 mg Tamsulosin HCl (Flomax) 0.4 mg PO DAILY [facility] Last Admin: 09/05/18 08:35 Dose: 0.4 mg Valproate Sodium (Depakene Oral Soln) 500 mg PO QID [facility] Last Admin: 09/05/18 21:51 Dose: 500 mg - Labs Labs: 09/04/18 05:50 09/04/18 11:15 PT 12.2 Seconds (9.8-13.1) 08/04/18 00:30 INR 1.1 08/04/18 00:30 APTT 31.5 Seconds (25.6-37.1) 08/02/18 22:20 - Skin Additional comments: Constitutional Appears: No Acute Distress - Eye Exam Eye Exam: EOMI - Respiratory Exam Respiratory Exam: Clear to Ausculation Bilateral, NORMAL BREATHING PATTERN. absent: Wheezes - Cardiovascular Exam Cardiovascular Exam: REGULAR RHYTHM, +S1, +S2 - GI/Abdominal Exam GI & Abdominal Exam: Soft, Normal Bowel Sounds. absent: Tenderness - Extremities Exam Extremities Exam: absent: Calf Tenderness - Neurological Exam Neurological Exam: Alert, Awake Assessment and Plan - Assessment and Plan (Free Text) Assessment: 62 yo female from a retirement, with hx of DM II, schizophrenia and HTN; initially admitted for sepsis and pneumonia. Initial labs were significant for leukocytosis with bandemia; CXR showed atelectasis vs infiltrate and pt was started on vancomycin, zosyn and zithromax IV. During the admission, the pt was found to be bradycardic and became unresponsive. Code Blue was called for suspected Pulseless Electrical Activity; compressions done ,was achieved after 3 rounds of epinephrine. She was then transferred to ICU. When weaned off sedat ion, mental status changes appreciated per family when compared to her baseline believed to be effect of being off her psych medication. Patient was undergoing titration of clozaril, however, due to decline of WBC/ANC, clozaril was discontinued and Risperdal taper was started. Daughter willing to be POA however, patient is not able to sign over POA in current condition. Plan: 1. Altered Mental Status - Improved significantly since restarting Clozapine, however, decline in WBC/ANC, was d/c on 09/04 and Risperdal taper was started - s/p empirical treatment with IV Acyclovir - Lumbar puncture unremarkable and Cx negative - MRI of Brain - no signs of stroke nor encephalitis - AMS may be due to Schizophrenia - Psych Dr. Williamson: discontinued Clozapine 50mg - started Risperdal 0.5 mg PO QHS on 09/04/18, as per Psych recs, increase by 0.5 daily for 4 days total. - increased risperdal from 0.5 to 1 mg PO BID today -c/w 1:1 observation 2. Urinary Retention - Failed voiding trial on 09/03. Ray re-inserted. - Continue with bladder training - Urology Dr. Dominguez - C/W Flomax 0.4mg qdaily 3. Hypertension - Normotensive - cont Amlodipine, Coreg, Hydralazine, and Losartan - c/w monitoring BP 4. DM - c/w Iinsulin lispro correction scale - c/w Levemir 10 Units SC HS - Dysphagia, modified, diabetic diet 5. Localization-related (focal) (partial) symptomatic epilepsy - as per neuro due to pts infection and antipsychotics lowered seizure threshold; appear to have resolved now - cont Depakote and Vimpat 6.Hypothyrodism -Chronic, uncontrolled -Levothyroxine 50mcg daily 7. Schizophrenia - Chronic - Psych Dr. Williamson: discontinued Clozapine 50mg, started Risperdal 0.5 mg PO QHS and increase by 0.5 daily for 4 days total. 8. DVT prophylaxis - Lovenox 40mg SC QD - SCDs 9. Deconditioning - PT/OT: improved bed mobility, able to completed lateral steps 10. Dispo planning -Subacute rehab as per PT <Kera Naylor - Last Filed: 09/06/18 15:24> Objective - Vital Signs/Intake and Output Vital Signs (last 24 hours): Temp Pulse Resp BP Pulse Ox 97.9 F 60 20 117/59 L 97 09/06/18 08:16 09/06/18 13:20 09/06/18 08:16 09/06/18 13:20 09/06/18 08:16 - Medications Medications: Current Medications Acetaminophen (Tylenol 325mg Tab) 650 mg PO Q6 PRN PRN Reason: Fever >100.4 F Last Admin: 08/30/18 17:12 Dose: 650 mg Acetaminophen (Tylenol 650mg/20.3ml Solution Ud) 650 mg PO Q6 PRN PRN Reason: Temperature Last Admin: 08/18/18 11:22 Dose: 650 mg Albuterol/Ipratropium (Duoneb 3 Mg/0.5 Mg (3 Ml) Ud) 3 ml INH RQ6 PRN PRN Reason: Shortness of Breath Last Admin: 08/24/18 00:07 Dose: 3 ml Amlodipine Besylate (Norvasc) 10 mg PO DAILY [facility] Last Admin: 09/06/18 10:17 Dose: 10 mg Atorvastatin Calcium (Lipitor) 10 mg PO HS [facility] Last Admin: 09/05/18 21:27 Dose: 10 mg Carvedilol (Coreg) 25 mg PO Q12 [facility] Last Admin: 09/06/18 10:13 Dose: 25 mg Dextrose (Dextrose 50% Inj) 0 ml IV STAT PRN; Protocol PRN Reason: Hypoglycemia Protocol Last Admin: 08/25/18 16:44 Dose: 50 ml Dextrose (Glutose 15) 0 gm PO ONCE PRN; Protocol PRN Reason: Hypoglycemia Protocol Enoxaparin Sodium (Lovenox) 40 mg SC DAILY [facility]; Protocol Last Admin: 09/06/18 10:16 Dose: 40 mg Escitalopram Oxalate (Lexapro) 10 mg PO HS [facility] Last Admin: 09/05/18 21:28 Dose: 10 mg Glucagon (Glucagen Diagnostic Kit) 0 mg IM STAT PRN; Protocol PRN Reason: Hypoglycemia Protocol Hydralazine HCl (Apresoline) 20 mg PO TID [facility] Last Admin: 09/06/18 13:20 Dose: 20 mg Ibuprofen (Motrin Tab) 600 mg PO Q6 PRN PRN Reason: Fever >100.4 F Last Admin: 08/19/18 07:23 Dose: 600 mg Insulin Detemir (Levemir) 10 units SC [facility] Last Admin: 09/05/18 21:31 Dose: 10 u Insulin Human Lispro (Humalog) 0 units SC [facility]; Protocol Last Admin: 09/06/18 13:13 Dose: 4 units Lacosamide (Vimpat) 100 mg PO Q12 [facility] Last Admin: 09/06/18 10:22 Dose: 100 mg Lactulose (Enulose) 20 gm PO Q12 PRN PRN Reason: Constipation Last Admin: 08/29/18 13:44 Dose: 20 gm Levothyroxine Sodium (Synthroid) 50 mcg PO DAILY@0630 [facility] Last Admin: 09/06/18 06:41 Dose: 50 mcg Losartan Potassium (Cozaar) 100 mg PO DAILY [facility] Last Admin: 09/06/18 10:14 Dose: 100 mg Metformin HCl (Glucophage) 850 mg PO BID [facility] Last Admin: 09/06/18 10:16 Dose: 850 mg Multivitamins/Vitamin C (Multi-Delyn Liquid) 15 ml PO DAILY [facility] Risperidone (Risperdal Tab) 1 mg PO Q12 [facility] Tamsulosin HCl (Flomax) 0.4 mg PO DAILY [facility] Last Admin: 09/06/18 10:15 Dose: 0.4 mg Valproate Sodium (Depakene Oral Soln) 500 mg PO QID [facility] Last Admin: 09/06/18 13:22 Dose: 500 mg - Labs Labs: 09/04/18 05:50 09/04/18 11:15 PT 12.2 Seconds (9.8-13.1) 08/04/18 00:30 INR 1.1 08/04/18 00:30 APTT 31.5 Seconds (25.6-37.1) 08/02/18 22:20 Attending/Attestation - Attestation I have personally seen and examined this patient.: Yes I have fully participated in the care of the patient.: Yes I have reviewed all pertinent clinical information, including history, physical exam and plan: Yes Notes (Text): 09/06/18 15:24 Seen examined and discussed with resident. Agree with findings and plan as above.
[2018-09-06] MEDS: Valproic Acid 250 mg/5 ml UD Cup PO SCH ×4 (10:15→21:15)
[2018-09-06] MEDS: Insulin Lispro (humaLOG) 100 Units/ml Inj SC SCH ×4 (10:16→21:18)
[2018-09-06] MEDS: Enoxaparin 40 mg Syringe SC SCH (10:16)
[2018-09-06] MEDS: Risperidone M tab 0.5MG PO SCH (10:18)
[2018-09-06] MEDS: Multivitamin With Minerals Tab PO SCH (10:18)
[2018-09-06] MEDS: Lacosamide 50 MG Tab PO SCH ×2 (10:22→21:17)
[2018-09-06] MEDS: Multi Vitamins 15 mL UD Oral Solution PO SCH (16:53)
[2018-09-06] MEDS: Insulin Detemir 100 Units/ml Inj SC SCH (21:17)
[2018-09-07] MEDS: Levothyroxine 50 MCG TAB PO SCH (05:43)
[2018-09-07] MEDS: Insulin Lispro (humaLOG) 100 Units/ml Inj SC SCH ×4 (10:43→22:37)
[2018-09-07] MEDS: Enoxaparin 40 mg Syringe SC SCH (10:48)
[2018-09-07] MEDS: Valproic Acid 250 mg/5 ml UD Cup PO SCH ×4 (10:48→22:00)
[2018-09-07] MEDS: Multi Vitamins 15 mL UD Oral Solution PO SCH (10:49)
--- NOTE | 2018-09-07 11:38 | CP.PCM.PN ---
<Nikki Abreu - Last Filed: 09/07/18 13:02> Subjective - Date & Time of Evaluation Date of Evaluation: 09/07/18 Time of Evaluation: 11:36 - Subjective Subjective: Pt seen and examined at bedside. Per TERRITORY SALES REPRESENTATIVE: pt is able to ambulate to toilet, experienced normal, solid bowel movement. Ray in place with bladder training. Patient oriented to name and place. Objective - Vital Signs/Intake and Output Vital Signs (last 24 hours): Temp Pulse Resp BP Pulse Ox 98.6 F 68 20 103/60 97 09/07/18 00:09 09/07/18 10:49 09/07/18 00:09 09/07/18 10:49 09/07/18 00:09 Intake and Output: 09/07/18 09/07/18 06:59 18:59 Intake Total 800 Output Total 700 Balance 100 - Medications Medications: Current Medications Acetaminophen (Tylenol 325mg Tab) 650 mg PO Q6 PRN PRN Reason: Fever >100.4 F Last Admin: 08/30/18 17:12 Dose: 650 mg Acetaminophen (Tylenol 650mg/20.3ml Solution Ud) 650 mg PO Q6 PRN PRN Reason: Temperature Last Admin: 08/18/18 11:22 Dose: 650 mg Albuterol/Ipratropium (Duoneb 3 Mg/0.5 Mg (3 Ml) Ud) 3 ml INH RQ6 PRN PRN Reason: Shortness of Breath Last Admin: 08/24/18 00:07 Dose: 3 ml Amlodipine Besylate (Norvasc) 10 mg PO DAILY [facility] Last Admin: 09/07/18 10:49 Dose: 10 mg Atorvastatin Calcium (Lipitor) 10 mg PO HS [facility] Last Admin: 09/06/18 21:15 Dose: 10 mg Carvedilol (Coreg) 25 mg PO Q12 [facility] Last Admin: 09/07/18 10:47 Dose: 25 mg Dextrose (Dextrose 50% Inj) 0 ml IV STAT PRN; Protocol PRN Reason: Hypoglycemia Protocol Last Admin: 08/25/18 16:44 Dose: 50 ml Dextrose (Glutose 15) 0 gm PO ONCE PRN; Protocol PRN Reason: Hypoglycemia Protocol Enoxaparin Sodium (Lovenox) 40 mg SC DAILY [facility]; Protocol Last Admin: 09/07/18 10:48 Dose: 40 mg Escitalopram Oxalate (Lexapro) 10 mg PO HS [facility] Last Admin: 09/06/18 21:16 Dose: 10 mg Glucagon (Glucagen Diagnostic Kit) 0 mg IM STAT PRN; Protocol PRN Reason: Hypoglycemia Protocol Hydralazine HCl (Apresoline) 20 mg PO TID [facility] Last Admin: 09/07/18 10:46 Dose: 20 mg Ibuprofen (Motrin Tab) 600 mg PO Q6 PRN PRN Reason: Fever >100.4 F Last Admin: 08/19/18 07:23 Dose: 600 mg Insulin Detemir (Levemir) 10 units SC [facility] Last Admin: 09/06/18 21:17 Dose: 10 u Insulin Human Lispro (Humalog) [address] [facility]; Protocol Last Admin: 09/07/18 10:43 Dose: Not Given Lacosamide (Vimpat) 100 mg PO Q12 [facility] Last Admin: 09/06/18 21:17 Dose: 100 mg Lactulose (Enulose) 20 gm PO Q12 PRN PRN Reason: Constipation Last Admin: 08/29/18 13:44 Dose: 20 gm Levothyroxine Sodium (Synthroid) 50 mcg PO DAILY@0630 [facility] Last Admin: 09/07/18 05:43 Dose: 50 mcg Losartan Potassium (Cozaar) 100 mg PO DAILY [facility] Last Admin: 09/07/18 10:47 Dose: 100 mg Metformin HCl (Glucophage) 850 mg PO BID [facility] Last Admin: 09/07/18 10:48 Dose: 850 mg Multivitamins/Vitamin C (Multi-Delyn Liquid) 15 ml PO DAILY [facility] Last Admin: 09/07/18 10:49 Dose: 15 ml Risperidone (Risperdal Tab) 1.5 mg PO Q12 [facility] Tamsulosin HCl (Flomax) 0.4 mg PO DAILY [facility] Last Admin: 09/07/18 10:48 Dose: 0.4 mg Valproate Sodium (Depakene Oral Soln) 500 mg PO QID [facility] Last Admin: 09/07/18 10:48 Dose: 500 mg - Labs Labs: 09/04/18 05:50 09/04/18 11:15 PT 12.2 Seconds (9.8-13.1) 08/04/18 00:30 INR 1.1 08/04/18 00:30 APTT 31.5 Seconds (25.6-37.1) 08/02/18 22:20 - Constitutional Appears: No Acute Distress - Eye Exam Eye Exam: EOMI - Respiratory Exam Respiratory Exam: Clear to Ausculation Bilateral, NORMAL BREATHING PATTERN. absent: Wheezes - Cardiovascular Exam Cardiovascular Exam: REGULAR RHYTHM, +S1, +S2 - GI/Abdominal Exam GI & Abdominal Exam: Soft, Normal Bowel Sounds. absent: Tenderness - Extremities Exam Extremities Exam: absent: Normal Inspection - Neurological Exam Neurological Exam: Alert, Awake Assessment and Plan - Assessment and Plan (Free Text) Assessment: 62 yo female from a long-term, with hx of DM II, schizophrenia and HTN; initially admitted for sepsis and pneumonia. Initial labs were significant for leukocytosis with bandemia; CXR showed atelectasis vs infiltrate and pt was started on vancomycin, zosyn and zithromax IV. During the admission, the pt was found to be bradycardic and became unresponsive. Code Blue was called for suspected Pulseless Electrical Activity; compressions done ,was achieved after 3 rounds of epinephrine. She was then transferred to ICU. When weaned off sedatio n, mental status changes appreciated per family when compared to her baseline believed to be effect of being off her psych medication. Patient was undergoing titration of clozaril, however, due to decline of WBC/ANC, clozaril was discontinued and Risperdal taper was started. Daughter willing to be POA however, patient is not able to sign over POA in current condition. Plan: 1. Altered Mental Status - Improved significantly since restarting Clozapine, however, decline in WBC/ANC, was d/c on 09/04 and Risperdal taper was started - s/p empirical treatment with IV Acyclovir - Lumbar puncture unremarkable and Cx negative - MRI of Brain - no signs of stroke nor encephalitis - AMS may be due to Schizophrenia - Psych Dr. Williamson: discontinued Clozapine 50mg - started Risperdal 0.5 mg PO QHS on 09/04/18, as per Psych recs, increase by 0.5 daily for 4 days total. - increased risperdal from 1.0 to 1.5 mg PO BID today -c/w 1:1 observation 2. Urinary Retention - Failed voiding trial on 09/03. Ray catheter discontinued. F/u on bladder scan - Continue with bladder training - Urology Dr. Cacace - C/W Flomax 0.4mg qdaily 3. Hypertension - Normotensive - cont Amlodipine, Coreg, Hydralazine, and Losartan - c/w monitoring BP 4. DM - c/w Iinsulin lispro correction scale - c/w Levemir 10 Units SC HS - Dysphagia, modified, diabetic diet 5. Localization-related (focal) (partial) symptomatic epilepsy - as per neuro due to pts infection and antipsychotics lowered seizure threshold; appear to have resolved now - cont Depakote and Vimpat 6.Hypothyrodism -Chronic, uncontrolled -Levothyroxine 50mcg daily 7. Schizophrenia - Chronic - Psych Dr. Williamson: discontinued Clozapine 50mg, started Risperdal 0.5 mg PO QHS and increase by 0.5 daily for 4 days total. 8. DVT prophylaxis - Lovenox 40mg SC QD - SCDs 9. Deconditioning - PT/OT: improved bed mobility, able to completed lateral steps 10. Dispo planning -Subacute rehab as per PT <Baylee Garcia - Last Filed: 09/07/18 16:16> Objective - Vital Signs/Intake and Output Vital Signs (last 24 hours): Temp Pulse Resp BP Pulse Ox 98.6 F 65 20 123/61 97 09/07/18 00:09 09/07/18 14:28 09/07/18 00:09 09/07/18 14:28 09/07/18 00:09 Intake and Output: 09/07/18 09/07/18 06:59 18:59 Intake Total 800 Output Total 700 Balance 100 - Medications Medications: Current Medications Acetaminophen (Tylenol 325mg Tab) 650 mg PO Q6 PRN PRN Reason: Fever >100.4 F Last Admin: 08/30/18 17:12 Dose: 650 mg Acetaminophen (Tylenol 650mg/20.3ml Solution Ud) 650 mg PO Q6 PRN PRN Reason: Temperature Last Admin: 08/18/18 11:22 Dose: 650 mg Albuterol/Ipratropium (Duoneb 3 Mg/0.5 Mg (3 Ml) Ud) 3 ml INH RQ6 PRN PRN Reason: Shortness of Breath Last Admin: 08/24/18 00:07 Dose: 3 ml Amlodipine Besylate (Norvasc) 10 mg PO DAILY [facility] Last Admin: 09/07/18 10:49 Dose: 10 mg Atorvastatin Calcium (Lipitor) 10 mg PO HS [facility] Last Admin: 09/06/18 21:15 Dose: 10 mg Carvedilol (Coreg) 25 mg PO Q12 [facility] Last Admin: 09/07/18 10:47 Dose: 25 mg Dextrose (Dextrose 50% Inj) 0 ml IV STAT PRN; Protocol PRN Reason: Hypoglycemia Protocol Last Admin: 08/25/18 16:44 Dose: 50 ml Dextrose (Glutose 15) 0 gm PO ONCE PRN; Protocol PRN Reason: Hypoglycemia Protocol Enoxaparin Sodium (Lovenox) 40 mg SC DAILY [facility]; Protocol Last Admin: 09/07/18 10:48 Dose: 40 mg Escitalopram Oxalate (Lexapro) 10 mg PO [facility] Last Admin: 09/06/18 21:16 Dose: 10 mg Glucagon (Glucagen Diagnostic Kit) 0 mg IM STAT PRN; Protocol PRN Reason: Hypoglycemia Protocol Hydralazine HCl (Apresoline) 20 mg PO TID [facility] Last Admin: 09/07/18 14:28 Dose: 20 mg Ibuprofen (Motrin Tab) 600 mg PO Q6 PRN PRN Reason: Fever >100.4 F Last Admin: 08/19/18 07:23 Dose: 600 mg Insulin Detemir (Levemir) 10 units SC [facility] Last Admin: 09/06/18 21:17 Dose: 10 u Insulin Human Lispro (Humalog) 0 units SC [facility]; Protocol Last Admin: 09/07/18 14:28 Dose: 6 units Lacosamide (Vimpat) 100 mg PO Q12 [facility] Last Admin: 09/07/18 14:30 Dose: 100 mg Lactulose (Enulose) 20 gm PO Q12 PRN PRN Reason: Constipation Last Admin: 08/29/18 13:44 Dose: 20 gm Levothyroxine Sodium (Synthroid) 50 mcg PO DAILY@0630 [facility] Last Admin: 09/07/18 05:43 Dose: 50 mcg Losartan Potassium (Cozaar) 100 mg PO DAILY [facility] Last Admin: 09/07/18 10:47 Dose: 100 mg Metformin HCl (Glucophage) 850 mg PO BID [facility] Last Admin: 09/07/18 10:48 Dose: 850 mg Multivitamins/Vitamin C (Multi-Delyn Liquid) 15 ml PO DAILY [facility] Last Admin: 09/07/18 10:49 Dose: 15 ml Risperidone (Risperdal Tab) 1.5 mg PO Q12 [facility] Tamsulosin HCl (Flomax) 0.4 mg PO DAILY [facility] Last Admin: 09/07/18 10:48 Dose: 0.4 mg Valproate Sodium (Depakene Oral Soln) 500 mg PO QID [facility] Last Admin: 09/07/18 14:29 Dose: 500 mg - Labs Labs: 09/04/18 05:50 09/04/18 11:15 PT 12.2 Seconds (9.8-13.1) 08/04/18 00:30 INR 1.1 08/04/18 00:30 APTT 31.5 Seconds (25.6-37.1) 08/02/18 22:20 Attending/Attestation - Attestation I have personally seen and examined this patient.: Yes I have fully participated in the care of the patient.: Yes I have reviewed all pertinent clinical information, including history, physical exam and plan: Yes
[2018-09-07] MEDS: Lacosamide 50 MG Tab PO SCH ×2 (14:30→22:02)
[2018-09-07] MEDS: Insulin Detemir 100 Units/ml Inj SC SCH (22:35)
[2018-09-08] MEDS: Levothyroxine 50 MCG TAB PO SCH (05:54)
[2018-09-08 06:34] LABS: BLOOD UREA NITROGEN 4 mg/dl (7-17); GFR NON-AFRICAN AMERICAN > 60
--- NOTE | 2018-09-08 06:58 | CP.PCM.PN ---
<Nikki Abreu - Last Filed: 09/08/18 11:50> Subjective - Date & Time of Evaluation Date of Evaluation: 09/08/18 Time of Evaluation: 06:56 - Subjective Subjective: Pt seen and examined at bedside. Son is seen at bedside. Per CYLINDER PRESS OPERATOR APPRENTICE: pt is able to ambulate to toilet. Ray reinserted and in place with bladder training. Patient and son deny any other medical complains at this time. Objective - Vital Signs/Intake and Output Vital Signs (last 24 hours): Temp Pulse Resp BP Pulse Ox 97.9 F 69 18 115/65 97 09/08/18 00:19 09/08/18 00:19 09/08/18 00:19 09/08/18 00:19 09/08/18 00:19 - Medications Medications: Current Medications Acetaminophen (Tylenol 325mg Tab) 650 mg PO Q6 PRN PRN Reason: Fever >100.4 F Last Admin: 08/30/18 17:12 Dose: 650 mg Acetaminophen (Tylenol 650mg/20.3ml Solution Ud) 650 mg PO Q6 PRN PRN Reason: Temperature Last Admin: 08/18/18 11:22 Dose: 650 mg Albuterol/Ipratropium (Duoneb 3 Mg/0.5 Mg (3 Ml) Ud) 3 ml INH RQ6 PRN PRN Reason: Shortness of Breath Last Admin: 08/24/18 00:07 Dose: 3 ml Amlodipine Besylate (Norvasc) 10 mg PO DAILY [facility] Last Admin: 09/07/18 10:49 Dose: 10 mg Atorvastatin Calcium (Lipitor) 10 mg PO HS [facility] Last Admin: 09/07/18 21:59 Dose: 10 mg Carvedilol (Coreg) 25 mg PO Q12 [facility] Last Admin: 09/07/18 21:59 Dose: 25 mg Dextrose (Dextrose 50% Inj) 0 ml IV STAT PRN; Protocol PRN Reason: Hypoglycemia Protocol Last Admin: 08/25/18 16:44 Dose: 50 ml Dextrose (Glutose 15) 0 gm PO ONCE PRN; Protocol PRN Reason: Hypoglycemia Protocol Enoxaparin Sodium (Lovenox) 40 mg SC DAILY [facility]; Protocol Last Admin: 09/07/18 10:48 Dose: 40 mg Escitalopram Oxalate (Lexapro) 10 mg PO HS [facility] Last Admin: 09/07/18 21:59 Dose: 10 mg Glucagon (Glucagen Diagnostic Kit) 0 mg IM STAT PRN; Protocol PRN Reason: Hypoglycemia Protocol Hydralazine HCl (Apresoline) 20 mg PO TID [facility] Last Admin: 09/07/18 18:12 Dose: 20 mg Ibuprofen (Motrin Tab) 600 mg PO Q6 PRN PRN Reason: Fever >100.4 F Last Admin: 08/19/18 07:23 Dose: 600 mg Insulin Detemir (Levemir) 10 units SC HS [facility] Last Admin: 09/07/18 22:35 Dose: 10 u Insulin Human Lispro (Humalog) 0 units SC ACHS [facility]; Protocol Last Admin: 09/07/18 22:37 Dose: Not Given Lacosamide (Vimpat) 100 mg PO Q12 [facility] Last Admin: 09/07/18 22:02 Dose: 100 mg Lactulose (Enulose) 20 gm PO Q12 PRN PRN Reason: Constipation Last Admin: 08/29/18 13:44 Dose: 20 gm Levothyroxine Sodium (Synthroid) 50 mcg PO DAILY@0630 [facility] Last Admin: 09/08/18 05:54 Dose: 50 mcg Losartan Potassium (Cozaar) 100 mg PO DAILY [facility] Last Admin: 09/07/18 10:47 Dose: 100 mg Metformin HCl (Glucophage) 850 mg PO BID [facility] Last Admin: 09/07/18 18:05 Dose: 850 mg Multivitamins/Vitamin C (Multi-Delyn Liquid) 15 ml PO DAILY [facility] Last Admin: 09/07/18 10:49 Dose: 15 ml Risperidone (Risperdal Tab) 1.5 mg PO Q12 [facility] Last Admin: 09/07/18 21:59 Dose: 1.5 mg Tamsulosin HCl (Flomax) 0.4 mg PO DAILY [facility] Last Admin: 09/07/18 10:48 Dose: 0.4 mg Valproate Sodium (Depakene Oral Soln) 500 mg PO QID [facility] Last Admin: 09/07/18 22:00 Dose: 500 mg - Labs Labs: 09/04/18 05:50 09/08/18 05:40 PT 12.2 Seconds (9.8-13.1) 08/04/18 00:30 INR 1.1 08/04/18 00:30 APTT 31.5 Seconds (25.6-37.1) 08/02/18 22:20 - Constitutional Appears: Well, Non-toxic, No Acute Distress - Head Exam Head Exam: ATRAUMATIC - Eye Exam Eye Exam: EOMI - Respiratory Exam Respiratory Exam: Clear to Ausculation Bilateral, NORMAL BREATHING PATTERN. ab sent: Wheezes - Cardiovascular Exam Cardiovascular Exam: REGULAR RHYTHM, +S1, +S2 - GI/Abdominal Exam GI & Abdominal Exam: Soft, Normal Bowel Sounds. absent: Tenderness - Neurological Exam Neurological Exam: Alert, Awake Assessment and Plan - Assessment and Plan (Free Text) Assessment: 62 yo female from a skilled nursing, with hx of DM II, schizophrenia and HTN; initially admitted for sepsis and pneumonia. Initial labs were significant for leukocytosis with bandemia; CXR showed atelectasis vs infiltrate and pt was started on vancomycin, zosyn and zithromax IV. During the admission, the pt was found to be bradycardic and became unresponsive. Code Blue was called for suspected Pulseless Electrical Activity; compressions done ,was achieved after 3 rounds of epinephrine. She was then transferred to ICU. When weaned off sedation, mental status changes appreciated per family when compared to her baseline believed to be effect of being off her psych medication. Patient was undergoing titration of clozaril, however, due to decline of WBC/ANC, clozaril was discontinued and Risperdal taper was started. Daughter willing to be POA however, patient is not able to sign over POA in current condition. Plan: 1. Altered Mental Status - Improved significantly since restarting Clozapine, however, decline in WBC/ANC, was d/c on 09/04 and Risperdal taper was started - s/p empirical treatment with IV Acyclovir - Lumbar puncture unremarkable and Cx negative - MRI of Brain - no signs of stroke nor encephalitis - AMS may be due to Schizophrenia - Psych Dr. Williamson: discontinued Clozapine 50mg - started Risperdal 0.5 mg PO QHS on 09/04/18, as per Psych recs, increase by 0.5 daily for 4 days total. - increased risperdal from 1.5 to 2.0 mg PO BID today -c/w 1:1 observation 2. Urinary Retention - Failed voiding trial on 09/03. Ray catheter resinserted - Continue with bladder training - Urology Dr. Dominguez - C/W Flomax 0.4mg qdaily 3. Hypertension - Normotensive - cont Amlodipine, Coreg, Hydralazine, and Losartan - c/w monitoring BP 4. DM - c/w Iinsulin lispro correction scale - c/w Levemir 10 Units SC HS - Dysphagia, modified, diabetic diet 5. Localization-related (focal) (partial) symptomatic epilepsy - as per neuro due to pts infection and antipsychotics lowered seizure threshold; appear to have resolved now - cont Depakote and Vimpat 6.Hypothyrodism -Chronic, uncontrolled -Levothyroxine 50mcg daily 7. Schizophrenia - Chronic - Psych Dr. Williamson: discontinued Clozapine 50mg, started Risperdal 0.5 mg PO QHS and increase by 0.5 daily for 4 days total. 8. DVT prophylaxis - Lovenox 40mg SC QD - SCDs 9. Deconditioning - PT/OT: improved bed mobility, able to completed lateral steps - Speech therapist on board; video swallow ordered per speech therapist recs 10. Dispo planning -Possible discharge to psych once stable <Baylee Garcia - Last Filed: 09/09/18 19:24> Objective - Vital Signs/Intake and Output Vital Signs (last 24 hours): Temp Pulse Resp BP Pulse Ox 97.6 F 69 18 118/68 95 09/09/18 16:21 09/09/18 16:21 09/09/18 16:21 09/09/18 16:21 09/09/18 16:21 - Medications Medications: Current Medications Acetaminophen (Tylenol 325mg Tab) 650 mg PO Q6 PRN PRN Reason: Fever >100.4 F Last Admin: 08/30/18 17:12 Dose: 650 mg Acetaminophen (Tylenol 650mg/20.3ml Solution Ud) 650 mg PO Q6 PRN PRN Reason: Temperature Last Admin: 08/18/18 11:22 Dose: 650 mg Albuterol/Ipratropium (Duoneb 3 Mg/0.5 Mg (3 Ml) Ud) 3 ml INH RQ6 PRN PRN Reason: Shortness of Breath Last Admin: 08/24/18 00:07 Dose: 3 ml Amlodipine Besylate (Norvasc) 10 mg PO DAILY [facility] Last Admin: 09/09/18 08:42 Dose: 10 mg Atorvastatin Calcium (Lipitor) 10 mg PO HS [facility] Last Admin: 09/08/18 21:30 Dose: 10 mg Carvedilol (Coreg) 25 mg PO Q12 [facility] Last Admin: 09/09/18 08:41 Dose: 25 mg Dextrose (Dextrose 50% Inj) 0 ml IV STAT PRN; Protocol PRN Reason: Hypoglycemia Protocol Last Admin: 08/25/18 16:44 Dose: 50 ml Dextrose (Glutose 15) 0 gm PO ONCE PRN; Protocol PRN Reason: Hypoglycemia Protocol Enoxaparin Sodium (Lovenox) 40 mg SC DAILY [facility]; Protocol Last Admin: 09/09/18 08:40 Dose: 40 mg Escitalopram Oxalate (Lexapro) 10 mg PO [facility] Last Admin: 09/08/18 21:38 Dose: 10 mg Glucagon (Glucagen Diagnostic Kit) 0 mg IM STAT PRN; Protocol PRN Reason: Hypoglycemia Protocol Hydralazine HCl (Apresoline) 20 mg PO TID [facility] Last Admin: 09/09/18 16:27 Dose: 20 mg Ibuprofen (Motrin Tab) 600 mg PO Q6 PRN PRN Reason: Fever >100.4 F Last Admin: 08/19/18 07:23 Dose: 600 mg Insulin Detemir (Levemir) 10 units SC [facility] Last Admin: 09/08/18 23:01 Dose: 10 u Insulin Human Lispro (Humalog) 0 units SC [facility]; Protocol Last Admin: 09/09/18 16:29 Dose: 2 units Lacosamide (Vimpat) 100 mg PO Q12 [facility] Last Admin: 09/09/18 08:38 Dose: 100 mg Lactulose (Enulose) 20 gm PO Q12 PRN PRN Reason: Constipation Last Admin: 09/09/18 08:42 Dose: 20 gm Levothyroxine Sodium (Synthroid) 50 mcg PO DAILY@0630 [facility] Last Admin: 09/09/18 06:34 Dose: 50 mcg Losartan Potassium (Cozaar) 100 mg PO DAILY [facility] Last Admin: 09/09/18 08:41 Dose: 100 mg Metformin HCl (Glucophage) 850 mg PO BID [facility] Last Admin: 09/09/18 16:28 Dose: 850 mg Multivitamins/Vitamin C (Multi-Delyn Liquid) 15 ml PO DAILY [facility] Last Admin: 09/09/18 08:41 Dose: 15 ml Risperidone (Risperdal Tab) 2 mg PO Q12 [facility] Last Admin: 09/09/18 08:40 Dose: 2 mg Tamsulosin HCl (Flomax) 0.4 mg PO DAILY [facility] Last Admin: 09/09/18 08:41 Dose: 0.4 mg Valproate Sodium (Depakene Oral Soln) 500 mg PO QID [facility] Last Admin: 09/09/18 16:28 Dose: 500 mg - Labs Labs: 09/08/18 05:40 09/08/18 05:40 PT 12.2 Seconds (9.8-13.1) 08/04/18 00:30 INR 1.1 08/04/18 00:30 APTT 31.5 Seconds (25.6-37.1) 08/02/18 22:20 Attending/Attestation - Attestation I have personally seen and examined this patient.: Yes I have fully participated in the care of the patient.: Yes I have reviewed all pertinent clinical information, including history, physical exam and plan: Yes <Kera Naylor - Last Filed: 09/14/18 09:34> Objective - Vital Signs/Intake and Output Vital Signs (last 24 hours): Temp Pulse Resp BP Pulse Ox 98.7 F 74 20 156/71 H 96 09/14/18 08:54 09/14/18 09:00 09/14/18 08:54 09/14/18 09:00 09/14/18 08:54 - Medications Medications: Current Medications Acetaminophen (Tylenol 325mg Tab) 650 mg PO Q6 PRN PRN Reason: Fever >100.4 F Last Admin: 08/30/18 17:12 Dose: 650 mg Acetaminophen (Tylenol 650mg/20.3ml Solution Ud) 650 mg PO Q6 PRN PRN Reason: Temperature Last Admin: 08/18/18 11:22 Dose: 650 mg Amlodipine Besylate (Norvasc) 10 mg PO DAILY [facility] Last Admin: 09/14/18 09:00 Dose: 10 mg Atorvastatin Calcium (Lipitor) 10 mg PO HS [facility] Last Admin: 09/13/18 22:17 Dose: 10 mg Bethanechol Chloride (Urecholine) 20 mg PO TID [facility] Last Admin: 09/14/18 09:01 Dose: 20 mg Carvedilol (Coreg) 25 mg PO Q12 [facility] Last Admin: 09/14/18 08:54 Dose: 25 mg Dextrose (Dextrose 50% Inj) 0 ml IV STAT PRN; Protocol PRN Reason: Hypoglycemia Protocol Last Admin: 08/25/18 16:44 Dose: 50 ml Dextrose (Glutose 15) 0 gm PO ONCE PRN; Protocol PRN Reason: Hypoglycemia Protocol Enoxaparin Sodium (Lovenox) 40 mg SC DAILY [facility]; Protocol Last Admin: 09/14/18 08:59 Dose: 40 mg Glucagon (Glucagen Diagnostic Kit) 0 mg IM STAT PRN; Protocol PRN Reason: Hypoglycemia Protocol Hydralazine HCl (Apresoline) 20 mg PO TID [facility] Last Admin: 09/14/18 08:53 Dose: 20 mg Ibuprofen (Motrin Tab) 600 mg PO Q6 PRN PRN Reason: Fever >100.4 F Last Admin: 08/19/18 07:23 Dose: 600 mg Insulin Detemir (Levemir) 10 units SC [facility] Last Admin: 09/13/18 22:18 Dose: 10 u Insulin Human Lispro (Humalog) [address] [facility]; Protocol Last Admin: 09/14/18 06:59 Dose: 2 units Lacosamide (Vimpat) 100 mg PO BID [facility] Last Admin: 09/13/18 22:25 Dose: 100 mg Lactulose (Enulose) 20 gm PO Q12 PRN PRN Reason: Constipation Last Admin: 09/09/18 08:42 Dose: 20 gm Levothyroxine Sodium (Synthroid) 50 mcg PO DAILY@0630 [facility] Last Admin: 09/14/18 05:48 Dose: 50 mcg Metformin HCl (Glucophage) 850 mg PO BID [facility] Last Admin: 09/14/18 08:57 Dose: 850 mg Multivitamins/Vitamin C (Multi-Delyn Liquid) 15 ml PO DAILY [facility] Last Admin: 09/14/18 09:00 Dose: 15 ml Risperidone (Risperdal Tab) 2 mg PO Q12 [facility] Last Admin: 09/14/18 09:01 Dose: 2 mg Tamsulosin HCl (Flomax) 0.4 mg PO DAILY [facility] Last Admin: 09/14/18 08:56 Dose: 0.4 mg Valproate Sodium (Depakene Oral Soln) 500 mg PO QID [facility] Last Admin: 09/14/18 08:55 Dose: 500 mg - Labs Labs: 09/13/18 06:00 09/13/18 06:00 PT 12.2 Seconds (9.8-13.1) 08/04/18 00:30 INR 1.1 08/04/18 00:30 APTT 31.5 Seconds (25.6-37.1) 08/02/18 22:20
[2018-09-08 08:48] LABS: HEMOGLOBIN 9.6 g/dL (12.0-16.0); MEAN CORPUSCULAR HEMOGLOBIN 28.1 pg (27.0-31.0); MEAN CORPUSCULAR HGB CONC 33.1 g/dL (33.0-37.0); RBC 3.4 Mil/uL (3.80-5.20); RED CELL DISTRIBUTION WIDTH 19.4 % (11.5-14.5); WHITE BLOOD COUNT 4.5 K/uL (4.8-10.8)
[2018-09-08] MEDS: Valproic Acid 250 mg/5 ml UD Cup PO SCH ×4 (09:02→21:39)
[2018-09-08] MEDS: Insulin Lispro (humaLOG) 100 Units/ml Inj SC SCH ×4 (09:04→23:05)
[2018-09-08] MEDS: Enoxaparin 40 mg Syringe SC SCH (09:05)
[2018-09-08] MEDS: Multi Vitamins 15 mL UD Oral Solution PO SCH (09:06)
[2018-09-08] MEDS: Lacosamide 50 MG Tab PO SCH ×2 (11:23→21:40)
[2018-09-08] MEDS ORDERED: Barium Sulfate Susp 0.1% w/v, 0.1% w/w 450 mL Bottle PO ONE (14:07)
--- NOTE | 2018-09-08 15:39 | RAD ---
Date of service: 09/08/2018 PROCEDURE: Modified barium video swallow HISTORY: evaluate COMPARISON: Not available TECHNIQUE: A modified barium video swallow was performed in conjunction with a member of the speech therapy department. Swallowing of barium mixtures of varying viscosity was observed fluoroscopically. Total time of fluoroscopy was 122.1 sec. Cumulative dose was 10.12 mGy. FINDINGS: There was no evidence of aspiration or laryngeal penetration throughout the examination. Please see full report from Department of speech therapy. IMPRESSION: No evidence of aspiration. Please see full report from department of speech therapy.
[2018-09-08] MEDS: Insulin Detemir 100 Units/ml Inj SC SCH (23:01)
[2018-09-09] MEDS: Levothyroxine 50 MCG TAB PO SCH (06:34)
[2018-09-09] MEDS: Insulin Lispro (humaLOG) 100 Units/ml Inj SC SCH ×4 (08:35→22:30)
[2018-09-09] MEDS: Lacosamide 50 MG Tab PO SCH ×2 (08:38→21:48)
[2018-09-09] MEDS: Valproic Acid 250 mg/5 ml UD Cup PO SCH ×4 (08:39→21:48)
[2018-09-09] MEDS: Enoxaparin 40 mg Syringe SC SCH (08:40)
[2018-09-09] MEDS: Multi Vitamins 15 mL UD Oral Solution PO SCH (08:41)
--- NOTE | 2018-09-09 13:12 | CP.PCM.PN ---
<Kya Noguera - Last Filed: 09/09/18 14:04> Subjective - Date & Time of Evaluation Date of Evaluation: 09/09/18 Time of Evaluation: 09:00 - Subjective Subjective: Patient seen and examined at bedside. Per FINAL APPLICATION REVIEWER: pt is able to ambulate to toilet, experienced normal, solid bowel movement. Ray in place with bladder training. Patient oriented to person and place. Patient passed Modified Barium Video Swallow Eval done yesterday, now in regular diet with thin liquids as per dietitian recommendations Patient doing PT. Per PT report, patient is demonstrating improving, improving safety awareness and obstacle avoidance. Objective - Vital Signs/Intake and Output Vital Signs (last 24 hours): Temp Pulse Resp BP Pulse Ox 97.9 F 62 20 144/63 93 L 09/09/18 08:14 09/09/18 08:14 09/09/18 08:14 09/09/18 08:14 09/09/18 08:14 Intake and Output: 09/09/18 09/09/18 06:59 18:59 Output Total 1300 Balance -1300 - Medications Medications: Current Medications Acetaminophen (Tylenol 325mg Tab) 650 mg PO Q6 PRN PRN Reason: Fever >100.4 F Last Admin: 08/30/18 17:12 Dose: 650 mg Acetaminophen (Tylenol 650mg/20.3ml Solution Ud) 650 mg PO Q6 PRN PRN Reason: Temperature Last Admin: 08/18/18 11:22 Dose: 650 mg Albuterol/Ipratropium (Duoneb 3 Mg/0.5 Mg (3 Ml) Ud) 3 ml INH RQ6 PRN PRN Reason: Shortness of Breath Last Admin: 08/24/18 00:07 Dose: 3 ml Amlodipine Besylate (Norvasc) 10 mg PO DAILY [facility] Last Admin: 09/09/18 08:42 Dose: 10 mg Atorvastatin Calcium (Lipitor) 10 mg PO HS [facility] Last Admin: 09/08/18 21:30 Dose: 10 mg Carvedilol (Coreg) 25 mg PO Q12 [facility] Last Admin: 09/09/18 08:41 Dose: 25 mg Dextrose (Dextrose 50% Inj) 0 ml IV STAT PRN; Protocol PRN Reason: Hypoglycemia Protocol Last Admin: 08/25/18 16:44 Dose: 50 ml Dextrose (Glutose 15) 0 gm PO ONCE PRN; Protocol PRN Reason: Hypoglycemia Protocol Enoxaparin Sodium (Lovenox) 40 mg SC DAILY [facility]; Protocol Last Admin: 09/09/18 08:40 Dose: 40 mg Escitalopram Oxalate (Lexapro) 10 mg PO HS [facility] Last Admin: 09/08/18 21:38 Dose: 10 mg Glucagon (Glucagen Diagnostic Kit) 0 mg IM STAT PRN; Protocol PRN Reason: Hypoglycemia Protocol Hydralazine HCl (Apresoline) 20 mg PO TID [facility] Last Admin: 09/09/18 08:39 Dose: 20 mg Ibuprofen (Motrin Tab) 600 mg PO Q6 PRN PRN Reason: Fever >100.4 F Last Admin: 08/19/18 07:23 Dose: 600 mg Insulin Detemir (Levemir) 10 units SC [facility] Last Admin: 09/08/18 23:01 Dose: 10 u Insulin Human Lispro (Humalog) 0 units SC [facility]; Protocol Last Admin: 09/09/18 12:21 Dose: Not Given Lacosamide (Vimpat) 100 mg PO Q12 [facility] Last Admin: 09/09/18 08:38 Dose: 100 mg Lactulose (Enulose) 20 gm PO Q12 PRN PRN Reason: Constipation Last Admin: 09/09/18 08:42 Dose: 20 gm Levothyroxine Sodium (Synthroid) 50 mcg PO DAILY@0630 [facility] Last Admin: 09/09/18 06:34 Dose: 50 mcg Losartan Potassium (Cozaar) 100 mg PO DAILY [facility] Last Admin: 09/09/18 08:41 Dose: 100 mg Metformin HCl (Glucophage) 850 mg PO BID [facility] Last Admin: 09/09/18 08:39 Dose: 850 mg Multivitamins/Vitamin C (Multi-Delyn Liquid) 15 ml PO DAILY [facility] Last Admin: 09/09/18 08:41 Dose: 15 ml Risperidone (Risperdal Tab) 2 mg PO Q12 [facility] Last Admin: 09/09/18 08:40 Dose: 2 mg Tamsulosin HCl (Flomax) 0.4 mg PO DAILY [facility] Last Admin: 09/09/18 08:41 Dose: 0.4 mg Valproate Sodium (Depakene Oral Soln) 500 mg PO QID [facility] Last Admin: 09/09/18 08:39 Dose: 500 mg - Labs Labs: 09/08/18 05:40 09/08/18 05:40 PT 12.2 Seconds (9.8-13.1) 08/04/18 00:30 INR 1.1 08/04/18 00:30 APTT 31.5 Seconds (25.6-37.1) 08/02/18 22:20 - Skin Additional comments: Constitutional Appears: No Acute Distress - Eye Exam Eye Exam: EOMI - Respiratory Exam Respiratory Exam: Clear to Ausculation Bilateral, NORMAL BREATHING PATTERN. absent: Wheezes - Cardiovascular Exam Cardiovascular Exam: REGULAR RHYTHM, +S1, +S2 - GI/Abdominal Exam GI & Abdominal Exam: Soft, Normal Bowel Sounds. absent: Tenderness - Extremities Exam Extremities Exam: absent: Normal Inspection - Neurological Exam Neurological Exam: Alert, Awake Assessment and Plan - Assessment and Plan (Free Text) Assessment: 62 yo female from a residential, with hx of DM II, schizophrenia and HTN; initially admitted for sepsis and pneumonia. Initial labs were significant for leukocytosis with bandemia; CXR showed atelectasis vs infiltrate and pt was started on vancomycin, zosyn and zithromax IV. During the admission, the pt was found to be bradycardic and became unresponsive. Code Blue was called for suspected Pulseless Electrical Activity; compressions done ,was achieved after 3 rounds of epinephrine. She was then transferred to ICU. When weaned off sedation, mental status changes appreciated per family when compared to her baseline believed to be effect of being off her psych medication. Patient was undergoing titration of clozaril, however, due to decline of WBC/ANC, clozaril was discontinued and Risperdal taper was started. Daughter willing to be POA however, patient is not able to sign over POA in current condition. Plan: 1. Altered Mental Status - Improved significantly since restarting Clozapine, however, decline in WBC/ANC, was d/c on 09/04 and Risperdal taper was started - s/p empirical treatment with IV Acyclovir - Lumbar puncture unremarkable and Cx negative - MRI of Brain - no signs of stroke nor encephalitis - AMS may be due to Schizophrenia - Psych Dr. Williamson: discontinued Clozapine 50mg - started Risperdal 0.5 mg PO BID on 09/04/18 by Psych, as per Psych recs, increase by 0.5 daily for 4 days total. Then re-call Psych - Spoke with Dr. Williamson, recommendations are: continue with current dose of Risperdal 2 mg BID, and re-call Psych consult for re-evaluation, and further recommendations for dose adjustments. Patient passed Modified Barium Video Swallow Eval done yesterday, now in regular diet with thin liquids as per dietitian recommendations Patient doing PT. Per PT report, patient is demonstrating improving, improving safety awareness and obstacle avoidance. -c/w 1:1 observation 2. Urinary Retention - Failed voiding trial on 09/03. Ray catheter discontinued. F/u on bladder scan - Continue with bladder training - Urology Dr. Dominguez - C/W Flomax 0.4mg qdaily 3. Hypertension - Normotensive - cont Amlodipine, Coreg, Hydralazine, and Losartan - c/w monitoring BP 4. DM - c/w Iinsulin lispro correction scale - c/w Levemir 10 Units SC HS - Dysphagia, modified, diabetic diet 5. Localization-related (focal) (partial) symptomatic epilepsy - as per neuro due to pts infection and antipsychotics lowered seizure threshold; appear to have resolved now - cont Depakote and Vimpat 6.Hypothyrodism -Chronic, uncontrolled -Levothyroxine 50 mcg daily 7. Schizophrenia - Chronic - Psych Dr. Williamson: discontinued Clozapine 50mg, started Risperdal 0.5 mg PO BID and increase by 0.5 daily for 4 days total. 8. DVT prophylaxis - Lovenox 40mg SC QD - SCDs 9. Deconditioning - PT/OT: improved bed mobility, able to completed lateral steps 10. Dispo planning -Subacute rehab as per PT <Baylee Garcia - Last Filed: 09/09/18 17:53> Objective - Vital Signs/Intake and Output Vital Signs (last 24 hours): Temp Pulse Resp BP Pulse Ox 97.6 F 69 18 118/68 95 09/09/18 16:21 09/09/18 16:21 09/09/18 16:21 09/09/18 16:21 09/09/18 16:21 Intake and Output: 09/09/18 09/09/18 06:59 18:59 Output Total 1300 Balance -1300 - Medications Medications: Current Medications Acetaminophen (Tylenol 325mg Tab) 650 mg PO Q6 PRN PRN Reason: Fever >100.4 F Last Admin: 08/30/18 17:12 Dose: 650 mg Acetaminophen (Tylenol 650mg/20.3ml Solution Ud) 650 mg PO Q6 PRN PRN Reason: Temperature Last Admin: 08/18/18 11:22 Dose: 650 mg Albuterol/Ipratropium (Duoneb 3 Mg/0.5 Mg (3 Ml) Ud) 3 ml INH RQ6 PRN PRN Reason: Shortness of Breath Last Admin: 08/24/18 00:07 Dose: 3 ml Amlodipine Besylate (Norvasc) 10 mg PO DAILY [facility] Last Admin: 09/09/18 08:42 Dose: 10 mg Atorvastatin Calcium (Lipitor) 10 mg PO HS [facility] Last Admin: 09/08/18 21:30 Dose: 10 mg Carvedilol (Coreg) 25 mg PO Q12 [facility] Last Admin: 09/09/18 08:41 Dose: 25 mg Dextrose (Dextrose 50% Inj) 0 ml IV STAT PRN; Protocol PRN Reason: Hypoglycemia Protocol Last Admin: 08/25/18 16:44 Dose: 50 ml Dextrose (Glutose 15) 0 gm PO ONCE PRN; Protocol PRN Reason: Hypoglycemia Protocol Enoxaparin Sodium (Lovenox) 40 mg SC DAILY [facility]; Protocol Last Admin: 09/09/18 08:40 Dose: 40 mg Escitalopram Oxalate (Lexapro) 10 mg PO HS [facility] Last Admin: 09/08/18 21:38 Dose: 10 mg Glucagon (Glucagen Diagnostic Kit) 0 mg IM STAT PRN; Protocol PRN Reason: Hypoglycemia Protocol Hydralazine HCl (Apresoline) 20 mg PO TID [facility] Last Admin: 09/09/18 16:27 Dose: 20 mg Ibuprofen (Motrin Tab) 600 mg PO Q6 PRN PRN Reason: Fever >100.4 F Last Admin: 08/19/18 07:23 Dose: 600 mg Insulin Detemir (Levemir) 10 units SC [facility] Last Admin: 09/08/18 23:01 Dose: 10 u Insulin Human Lispro (Humalog) [address] [facility]; Protocol Last Admin: 09/09/18 16:29 Dose: 2 units Lacosamide (Vimpat) 100 mg PO Q12 [facility] Last Admin: 09/09/18 08:38 Dose: 100 mg Lactulose (Enulose) 20 gm PO Q12 PRN PRN Reason: Constipation Last Admin: 09/09/18 08:42 Dose: 20 gm Levothyroxine Sodium (Synthroid) 50 mcg PO DAILY@0630 [facility] Last Admin: 09/09/18 06:34 Dose: 50 mcg Losartan Potassium (Cozaar) 100 mg PO DAILY [facility] Last Admin: 09/09/18 08:41 Dose: 100 mg Metformin HCl (Glucophage) 850 mg PO BID [facility] Last Admin: 09/09/18 16:28 Dose: 850 mg Multivitamins/Vitamin C (Multi-Delyn Liquid) 15 ml PO DAILY [facility] Last Admin: 09/09/18 08:41 Dose: 15 ml Risperidone (Risperdal Tab) 2 mg PO Q12 [facility] Last Admin: 09/09/18 08:40 Dose: 2 mg Tamsulosin HCl (Flomax) 0.4 mg PO DAILY [facility] Last Admin: 09/09/18 08:41 Dose: 0.4 mg Valproate Sodium (Depakene Oral Soln) 500 mg PO QID [facility] Last Admin: 09/09/18 16:28 Dose: 500 mg - Labs Labs: 09/08/18 05:40 09/08/18 05:40 PT 12.2 Seconds (9.8-13.1) 08/04/18 00:30 INR 1.1 08/04/18 00:30 APTT 31.5 Seconds (25.6-37.1) 08/02/18 22:20 Attending/Attestation - Attestation I have personally seen and examined this patient.: Yes I have fully participated in the care of the patient.: Yes I have reviewed all pertinent clinical information, including history, physical exam and plan: Yes Notes (Text): Pt's mental status is improving everyday will plan on d/c her Ray catheter in am and monitor for retention. She had Bladder training and is now out of bed and more active thus maybe able to void on her own .
--- NOTE | 2018-09-09 15:05 | CP.PCM.CON ---
History of Present Illness - History of Present Illness History of Present Illness: 62 yo female w/ PMH of schizophrenia, HTN, DM, initially admitted for sepsis and PNA pt on evaluation today seen sitting on a chair, smiling, cooperative, good eye contact ,speech underproductive, thought form tangential, pt denied any current perceptual disturbances, denied suicidal or homicidal ideation, no reported changes in sleep or appetite , as per staff pt has been cooperative with care , no current episodes of agitation Past Patient History - Past Medical History & Family History Past Medical History?: Yes - Past Social History Smoking Status: Light Smoker < 10 Cigarettes Daily - CARDIAC Hx Hypercholesterolemia: Yes Hx Hypertension: Yes - PULMONARY Hx Respiratory Disorders: Yes Hx Pneumonia: Yes - NEUROLOGICAL Hx Neurological Disorder: No - HEENT Hx HEENT Problems: No - RENAL Hx Chronic Kidney Disease: No - ENDOCRINE/METABOLIC Hx Endocrine Disorders: Yes Hx Diabetes Mellitus Type 2: Yes Hx Hypothyroidism: Yes - HEMATOLOGICAL/ONCOLOGICAL Hx Blood Disorders: No Hx AIDS: No Hx Human Immunodeficiency Virus (HIV): No - INTEGUMENTARY Hx Dermatological Problems: No - MUSCULOSKELETAL/RHEUMATOLOGICAL Hx Musculoskeletal Disorders: No Hx Falls: Yes - GASTROINTESTINAL Hx Gastritis: Yes - GENITOURINARY/GYNECOLOGICAL Hx Genitourinary Disorders: No - PSYCHIATRIC Hx Psychophysiologic Disorder: Yes Hx Depression: Yes Hx Schizophrenia: Yes Hx Substance Use: No - SURGICAL HISTORY Hx Surgeries: No - ANESTHESIA Hx Anesthesia: No Meds Allergies/Adverse Reactions: Allergies Allergy/AdvReac Type Severity Reaction Status Date / Time No Known Allergies Allergy Verified 08/02/18 21:49 - Medications Medications: Current Medications Acetaminophen (Tylenol 325mg Tab) 650 mg PO Q6 PRN PRN Reason: Fever >100.4 F Last Admin: 08/30/18 17:12 Dose: 650 mg Acetaminophen (Tylenol 650mg/20.3ml Solution Ud) 650 mg PO Q6 PRN PRN Reason: Temperature Last Admin: 08/18/18 11:22 Dose: 650 mg Albuterol/Ipratropium (Duoneb 3 Mg/0.5 Mg (3 Ml) Ud) 3 ml INH RQ6 PRN PRN Reason: Shortness of Breath Last Admin: 08/24/18 00:07 Dose: 3 ml Amlodipine Besylate (Norvasc) 10 mg PO DAILY [facility] Last Admin: 09/09/18 08:42 Dose: 10 mg Atorvastatin Calcium (Lipitor) 10 mg PO HS [facility] Last Admin: 09/08/18 21:30 Dose: 10 mg Carvedilol (Coreg) 25 mg PO Q12 [facility] Last Admin: 09/09/18 08:41 Dose: 25 mg Dextrose (Dextrose 50% Inj) 0 ml IV STAT PRN; Protocol PRN Reason: Hypoglycemia Protocol Last Admin: 08/25/18 16:44 Dose: 50 ml Dextrose (Glutose 15) 0 gm PO ONCE PRN; Protocol PRN Reason: Hypoglycemia Protocol Enoxaparin Sodium (Lovenox) 40 mg SC DAILY [facility]; Protocol Last Admin: 09/09/18 08:40 Dose: 40 mg Escitalopram Oxalate (Lexapro) 10 mg PO [facility] Last Admin: 09/08/18 21:38 Dose: 10 mg Glucagon (Glucagen Diagnostic Kit) 0 mg IM STAT PRN; Protocol PRN Reason: Hypoglycemia Protocol Hydralazine HCl (Apresoline) 20 mg PO TID [facility] Last Admin: 09/09/18 13:54 Dose: 20 mg Ibuprofen (Motrin Tab) 600 mg PO Q6 PRN PRN Reason: Fever >100.4 F Last Admin: 08/19/18 07:23 Dose: 600 mg Insulin Detemir (Levemir) 10 units SC [facility] Last Admin: 09/08/18 23:01 Dose: 10 u Insulin Human Lispro (Humalog) 0 units SC [facility]; Protocol Last Admin: 09/09/18 12:21 Dose: Not Given Lacosamide (Vimpat) 100 mg PO Q12 [facility] Last Admin: 09/09/18 08:38 Dose: 100 mg Lactulose (Enulose) 20 gm PO Q12 PRN PRN Reason: Constipation Last Admin: 09/09/18 08:42 Dose: 20 gm Levothyroxine Sodium (Synthroid) 50 mcg PO DAILY@0630 [facility] Last Admin: 09/09/18 06:34 Dose: 50 mcg Losartan Potassium (Cozaar) 100 mg PO DAILY [facility] Last Admin: 09/09/18 08:41 Dose: 100 mg Metformin HCl (Glucophage) 850 mg PO BID [facility] Last Admin: 09/09/18 08:39 Dose: 850 mg Multivitamins/Vitamin C (Multi-Delyn Liquid) 15 ml PO DAILY [facility] Last Admin: 09/09/18 08:41 Dose: 15 ml Risperidone (Risperdal Tab) 2 mg PO Q12 [facility] Last Admin: 09/09/18 08:40 Dose: 2 mg Tamsulosin HCl (Flomax) 0.4 mg PO DAILY [facility] Last Admin: 09/09/18 08:41 Dose: 0.4 mg Valproate Sodium (Depakene Oral Soln) 500 mg PO QID [facility] Last Admin: 09/09/18 13:55 Dose: 500 mg Results - Vital Signs Recent Vital Signs: Last Vital Signs Temp 97.9 F 09/09/18 08:14 Pulse 62 09/09/18 13:54 Resp 20 09/09/18 08:14 BP 144/63 09/09/18 13:54 Pulse Ox 93 L 09/09/18 08:14 - Labs Result Diagrams: 09/08/18 05:40 09/08/18 05:40 Labs: Laboratory Results - last 24 hr 09/08/18 09/08/18 09/09/18 15:36 19:56 06:03 POC Glucose (mg/dL) 128 H 167 H 87 09/09/18 12:04 POC Glucose (mg/dL) 142 H Assessment & Plan - Assessment and Plan (Free Text) Assessment: schizophrenia Plan: continue with current dose of risperidone pt at current mental status psychiatrically stable does not require admission to psychiatry
[2018-09-09] MEDS: Insulin Detemir 100 Units/ml Inj SC SCH (22:30)
--- NOTE | 2018-09-10 06:59 | CP.PCM.PN ---
Subjective - Date & Time of Evaluation Date of Evaluation: 09/10/18 Time of Evaluation: 06:58 - Subjective Subjective: Patient seen and examined at bedside. Per SENIOR AUDITOR: pt is able to ambulate to toilet, experienced normal, solid bowel movement. Ray in place with bladder training. Patient passed Modified Barium Video Swallow Eval done yesterday, now in regular diet with thin liquids as per dietitian recommendations Patient doing PT. Per PT report, patient is demonstrating improving, improving safety awareness and obstacle avoidance. Objective - Vital Signs/Intake and Output Vital Signs (last 24 hours): Temp Pulse Resp BP Pulse Ox 98.2 F 62 18 132/66 95 09/10/18 00:24 09/10/18 00:24 09/10/18 00:24 09/10/18 00:24 09/10/18 00:24 - Medications Medications: Current Medications Acetaminophen (Tylenol 325mg Tab) 650 mg PO Q6 PRN PRN Reason: Fever >100.4 F Last Admin: 08/30/18 17:12 Dose: 650 mg Acetaminophen (Tylenol 650mg/20.3ml Solution Ud) 650 mg PO Q6 PRN PRN Reason: Temperature Last Admin: 08/18/18 11:22 Dose: 650 mg Albuterol/Ipratropium (Duoneb 3 Mg/0.5 Mg (3 Ml) Ud) 3 ml INH RQ6 PRN PRN Reason: Shortness of Breath Last Admin: 08/24/18 00:07 Dose: 3 ml Amlodipine Besylate (Norvasc) 10 mg PO DAILY [facility] Last Admin: 09/09/18 08:42 Dose: 10 mg Atorvastatin Calcium (Lipitor) 10 mg PO HS [facility] Last Admin: 09/09/18 21:48 Dose: 10 mg Carvedilol (Coreg) 25 mg PO Q12 [facility] Last Admin: 09/09/18 21:48 Dose: 25 mg Dextrose (Dextrose 50% Inj) 0 ml IV STAT PRN; Protocol PRN Reason: Hypoglycemia Protocol Last Admin: 08/25/18 16:44 Dose: 50 ml Dextrose (Glutose 15) 0 gm PO ONCE PRN; Protocol PRN Reason: Hypoglycemia Protocol Enoxaparin Sodium (Lovenox) 40 mg SC DAILY [facility]; Protocol Last Admin: 09/09/18 08:40 Dose: 40 mg Escitalopram Oxalate (Lexapro) 10 mg PO HS [facility] Last Admin: 09/09/18 21:48 Dose: 10 mg Glucagon (Glucagen Diagnostic Kit) 0 mg IM STAT PRN; Protocol PRN Reason: Hypoglycemia Protocol Hydralazine HCl (Apresoline) 20 mg PO TID [facility] Last Admin: 09/09/18 16:27 Dose: 20 mg Ibuprofen (Motrin Tab) 600 mg PO Q6 PRN PRN Reason: Fever >100.4 F Last Admin: 08/19/18 07:23 Dose: 600 mg Insulin Detemir (Levemir) 10 units SC [facility] Last Admin: 09/09/18 22:30 Dose: 10 u Insulin Human Lispro (Humalog) 0 units SC [facility]; Protocol Last Admin: 09/09/18 22:30 Dose: Not Given Lactulose (Enulose) 20 gm PO Q12 PRN PRN Reason: Constipation Last Admin: 09/09/18 08:42 Dose: 20 gm Levothyroxine Sodium (Synthroid) 50 mcg PO DAILY@0630 [facility] Last Admin: 09/09/18 06:34 Dose: 50 mcg Losartan Potassium (Cozaar) 100 mg PO DAILY [facility] Last Admin: 09/09/18 08:41 Dose: 100 mg Metformin HCl (Glucophage) 850 mg PO BID [facility] Last Admin: 09/09/18 16:28 Dose: 850 mg Multivitamins/Vitamin C (Multi-Delyn Liquid) 15 ml PO DAILY [facility] Last Admin: 09/09/18 08:41 Dose: 15 ml Risperidone (Risperdal Tab) 2 mg PO Q12 [facility] Last Admin: 09/09/18 21:47 Dose: 2 mg Tamsulosin HCl (Flomax) 0.4 mg PO DAILY [facility] Last Admin: 09/09/18 08:41 Dose: 0.4 mg Valproate Sodium (Depakene Oral Soln) 500 mg PO QID [facility] Last Admin: 09/09/18 21:48 Dose: 500 mg - Labs Labs: 09/08/18 05:40 09/08/18 05:40 PT 12.2 Seconds (9.8-13.1) 08/04/18 00:30 INR 1.1 08/04/18 00:30 APTT 31.5 Seconds (25.6-37.1) 08/02/18 22:20 - Constitutional Appears: No Acute Distress - Eye Exam Eye Exam: EOMI - Respiratory Exam Respiratory Exam: Clear to Ausculation Bilateral, NORMAL BREATHING PATTERN - Cardiovascular Exam Cardiovascular Exam: REGULAR RHYTHM, +S1, +S2 - GI/Abdominal Exam GI & Abdominal Exam: Soft, Normal Bowel Sounds. absent: Tenderness - Neurological Exam Neurological Exam: Alert, Awake Assessment and Plan - Assessment and Plan (Free Text) Assessment: 62 yo female from a custodial, with hx of DM II, schizophrenia and HTN; initially admitted for sepsis and pneumonia. Initial labs were significant for leukocytosis with bandemia; CXR showed atelectasis vs infiltrate and pt was started on vancomycin, zosyn and zithromax IV. During the admission, the pt was found to be bradycardic and became unresponsive. Code Blue was called for suspec nat Pulseless Electrical Activity; compressions done ,was achieved after 3 rounds of epinephrine. She was then transferred to ICU. When weaned off sedation, mental status changes appreciated per family when compared to her baseline believed to be effect of being off her psych medication. Patient was undergoing titration of clozaril, however, due to decline of WBC/ANC, clozaril was discontinued and Risperdal taper was started. Patient now on riseperdal 2.0 gm bid. Daughter willing to be POA however, patient is not able to sign over POA in current condition. Plan: 1. Altered Mental Status - Improved significantly since restarting Clozapine, however, decline in WBC/A NC, was d/c on 09/04 and Risperdal taper was started - s/p empirical treatment with IV Acyclovir - Lumbar puncture unremarkable and Cx negative - MRI of Brain - no signs of stroke nor encephalitis - AMS may be due to Schizophrenia - Psych Dr. Williamson: discontinued Clozapine 50mg - started Risperdal 0.5 mg PO BID on 09/04/18 by Psych, as per Psych recs, increase by 0.5 daily for 4 days total. Then re-call Psych - Spoke with Dr. Williamson, recommendations are: continue with current dose of Risperdal 2 mg BID, and re-call Psych consult for re-evaluation, and further recommendations for dose adjustments. Patient passed Modified Barium Video Swallow Eval done yesterday, now in regular diet with thin liquids as per dietitian recommendations Patient doing PT. Per PT report, patient is demonstrating improving, improving safety awareness and obstacle avoidance. -c/w 1:1 observation 2. Urinary Retention - Failed voiding trial on 09/03. Ray catheter discontinued. F/u on bladder scan. - Continue with bladder training - Urology Dr. Dominguez - C/W Flomax 0.4mg qdaily 3. Hypertension - Normotensive - cont Amlodipine, Coreg, Hydralazine, and Losartan - c/w monitoring BP 4. DM - c/w Iinsulin lispro correction scale - c/w Levemir 10 Units SC HS - Dysphagia, modified, diabetic diet 5. Localization-related (focal) (partial) symptomatic epilepsy - as per neuro due to pts infection and antipsychotics lowered seizure threshold; appear to have resolved now - cont Depakote and Vimpat 6.Hypothyrodism -Chronic, uncontrolled -Levothyroxine 50 mcg daily 7. Schizophrenia - Chronic - Psych Dr. Williamson: discontinued Clozapine 50mg, started Risperdal 0.5 mg PO BID and increase by 0.5 daily for 4 days total. Patient on 2.0 mg PO BID daily. 8. DVT prophylaxis - Lovenox 40mg SC QD - SCD[facility] 9. Deconditioning - PT/OT: improved bed mobility, able to completed lateral steps 10. Dispo planning -Patient stable for discharge once urinary retention under control. Subacute rehab as per PT.
[2018-09-10] MEDS: Valproic Acid 250 mg/5 ml UD Cup PO SCH ×4 (08:58→21:15)
[2018-09-10] MEDS: Enoxaparin 40 mg Syringe SC SCH (08:59)
[2018-09-10] MEDS: Insulin Lispro (humaLOG) 100 Units/ml Inj SC SCH ×4 (08:59→21:15)
[2018-09-10] MEDS: Multi Vitamins 15 mL UD Oral Solution PO SCH (09:00)
[2018-09-10] MEDS: Levothyroxine 50 MCG TAB PO SCH (09:01)
[2018-09-10] MEDS: Insulin Detemir 100 Units/ml Inj SC SCH (21:22)
[2018-09-11] MEDS: Insulin Lispro (humaLOG) 100 Units/ml Inj SC SCH ×4 (07:01→21:22)
[2018-09-11] MEDS: Levothyroxine 50 MCG TAB PO SCH (07:09)
--- NOTE | 2018-09-11 07:15 | CP.PCM.PN ---
Subjective - Date & Time of Evaluation Date of Evaluation: 09/11/18 Time of Evaluation: 06:58 Objective - Vital Signs/Intake and Output Vital Signs (last 24 hours): Temp Pulse Resp BP Pulse Ox 97.3 F L 70 20 153/71 H 97 09/11/18 00:28 09/11/18 00:28 09/11/18 00:28 09/11/18 00:28 09/11/18 00:28 - Medications Medications: Current Medications Acetaminophen (Tylenol 325mg Tab) 650 mg PO Q6 PRN PRN Reason: Fever >100.4 F Last Admin: 08/30/18 17:12 Dose: 650 mg Acetaminophen (Tylenol 650mg/20.3ml Solution Ud) 650 mg PO Q6 PRN PRN Reason: Temperature Last Admin: 08/18/18 11:22 Dose: 650 mg Amlodipine Besylate (Norvasc) 10 mg PO DAILY [facility] Last Admin: 09/10/18 09:00 Dose: 10 mg Atorvastatin Calcium (Lipitor) 10 mg PO HS [facility] Last Admin: 09/10/18 21:14 Dose: 10 mg Carvedilol (Coreg) 25 mg PO Q12 [facility] Last Admin: 09/10/18 21:13 Dose: 25 mg Dextrose (Dextrose 50% Inj) 0 ml IV STAT PRN; Protocol PRN Reason: Hypoglycemia Protocol Last Admin: 08/25/18 16:44 Dose: 50 ml Dextrose (Glutose 15) 0 gm PO ONCE PRN; Protocol PRN Reason: Hypoglycemia Protocol Enoxaparin Sodium (Lovenox) 40 mg SC DAILY [facility]; Protocol Last Admin: 09/10/18 08:59 Dose: 40 mg Glucagon (Glucagen Diagnostic Kit) 0 mg IM STAT PRN; Protocol PRN Reason: Hypoglycemia Protocol Hydralazine HCl (Apresoline) 20 mg PO TID [facility] Last Admin: 09/10/18 16:42 Dose: 20 mg Ibuprofen (Motrin Tab) 600 mg PO Q6 PRN PRN Reason: Fever >100.4 F Last Admin: 08/19/18 07:23 Dose: 600 mg Insulin Detemir (Levemir) 10 units SC HS [facility] Last Admin: 09/10/18 21:22 Dose: 10 u Insulin Human Lispro (Humalog) 0 units SC [facility]; Protocol Last Admin: 09/10/18 21:15 Dose: Not Given Lactulose (Enulose) 20 gm PO Q12 PRN PRN Reason: Constipation Last Admin: 09/09/18 08:42 Dose: 20 gm Levothyroxine Sodium (Synthroid) 50 mcg PO DAILY@0630 [facility] Last Admin: 09/10/18 09:01 Dose: 50 mcg Losartan Potassium (Cozaar) 100 mg PO DAILY [facility] Last Admin: 09/10/18 08:57 Dose: 100 mg Metformin HCl (Glucophage) 850 mg PO BID [facility] Last Admin: 09/10/18 16:45 Dose: 850 mg Multivitamins/Vitamin C (Multi-Delyn Liquid) 15 ml PO DAILY [facility] Last Admin: 09/10/18 09:00 Dose: 15 ml Risperidone (Risperdal Tab) 2 mg PO Q12 [facility] Last Admin: 09/10/18 21:12 Dose: 2 mg Tamsulosin HCl (Flomax) 0.4 mg PO DAILY [facility] Last Admin: 09/10/18 08:58 Dose: 0.4 mg Valproate Sodium (Depakene Oral Soln) 500 mg PO QID [facility] Last Admin: 09/10/18 21:15 Dose: 500 mg - Labs Labs: 09/08/18 05:40 09/08/18 05:40 PT 12.2 Seconds (9.8-13.1) 08/04/18 00:30 INR 1.1 08/04/18 00:30 APTT 31.5 Seconds (25.6-37.1) 08/02/18 22:20
[2018-09-11] MEDS: Valproic Acid 250 mg/5 ml UD Cup PO SCH ×4 (09:05→21:20)
[2018-09-11] MEDS: Enoxaparin 40 mg Syringe SC SCH (09:06)
[2018-09-11] MEDS: Multi Vitamins 15 mL UD Oral Solution PO SCH (09:06)
--- NOTE | 2018-09-11 11:39 | CP.PCM.PN ---
Subjective - Date & Time of Evaluation Date of Evaluation: 09/11/18 Time of Evaluation: 11:37 - Subjective Subjective: Patient seen and examined at bedside. Per UMBRELLA TIPPER: pt is able to ambulate to toilet, experienced normal, solid bowel movement. Ray taken out yesterday, patient able to void. Patient passed Modified Barium Video Swallow Eval done yesterday, now in regular diet with thin liquids as per dietitian recommendations Patient doing PT. Per PT report, patient is demonstrating improving, improving safety awareness and obstacle avoidance. Objective - Vital Signs/Intake and Output Vital Signs (last 24 hours): Temp Pulse Resp BP Pulse Ox 98.1 F 62 20 138/65 96 09/11/18 08:41 09/11/18 09:18 09/11/18 08:41 09/11/18 09:18 09/11/18 08:41 Intake and Output: 09/11/18 09/11/18 06:59 18:59 Intake Total 400 Balance 400 - Medications Medications: Current Medications Acetaminophen (Tylenol 325mg Tab) 650 mg PO Q6 PRN PRN Reason: Fever >100.4 F Last Admin: 08/30/18 17:12 Dose: 650 mg Acetaminophen (Tylenol 650mg/20.3ml Solution Ud) 650 mg PO Q6 PRN PRN Reason: Temperature Last Admin: 08/18/18 11:22 Dose: 650 mg Amlodipine Besylate (Norvasc) 10 mg PO DAILY [facility] Last Admin: 09/11/18 09:17 Dose: 10 mg Atorvastatin Calcium (Lipitor) 10 mg PO HS [facility] Last Admin: 09/10/18 21:14 Dose: 10 mg Carvedilol (Coreg) 25 mg PO Q12 [facility] Last Admin: 09/11/18 09:18 Dose: 25 mg Dextrose (Dextrose 50% Inj) 0 ml IV STAT PRN; Protocol PRN Reason: Hypoglycemia Protocol Last Admin: 08/25/18 16:44 Dose: 50 ml Dextrose (Glutose 15) 0 gm PO ONCE PRN; Protocol PRN Reason: Hypoglycemia Protocol Enoxaparin Sodium (Lovenox) 40 mg SC DAILY [facility]; Protocol Last Admin: 09/11/18 09:06 Dose: 40 mg Glucagon (Glucagen Diagnostic Kit) 0 mg IM STAT PRN; Protocol PRN Reason: Hypoglycemia Protocol Hydralazine HCl (Apresoline) 20 mg PO TID [facility] Last Admin: 09/11/18 09:18 Dose: 20 mg Ibuprofen (Motrin Tab) 600 mg PO Q6 PRN PRN Reason: Fever >100.4 F Last Admin: 08/19/18 07:23 Dose: 600 mg Insulin Detemir (Levemir) 10 units SC HS [facility] Last Admin: 09/10/18 21:22 Dose: 10 u Insulin Human Lispro (Humalog) [address] [facility]; Protocol Last Admin: 09/11/18 07:01 Dose: Not Given Lactulose (Enulose) 20 gm PO Q12 PRN PRN Reason: Constipation Last Admin: 09/09/18 08:42 Dose: 20 gm Levothyroxine Sodium (Synthroid) 50 mcg PO DAILY@0630 [facility] Last Admin: 09/11/18 07:09 Dose: 50 mcg Metformin HCl (Glucophage) 850 mg PO BID [facility] Last Admin: 09/11/18 09:06 Dose: 850 mg Multivitamins/Vitamin C (Multi-Delyn Liquid) 15 ml PO DAILY [facility] Last Admin: 09/11/18 09:06 Dose: 15 ml Risperidone (Risperdal Tab) 2 mg PO Q12 [facility] Last Admin: 09/11/18 09:07 Dose: 2 mg Tamsulosin HCl (Flomax) 0.4 mg PO DAILY [facility] Last Admin: 09/11/18 09:08 Dose: 0.4 mg Valproate Sodium (Depakene Oral Soln) 500 mg PO QID [facility] Last Admin: 09/11/18 09:05 Dose: 500 mg - Labs Labs: 09/08/18 05:40 09/08/18 05:40 PT 12.2 Seconds (9.8-13.1) 08/04/18 00:30 INR 1.1 08/04/18 00:30 APTT 31.5 Seconds (25.6-37.1) 08/02/18 22:20 - Constitutional Appears: Well, Non-toxic - Head Exam Head Exam: ATRAUMATIC, NORMOCEPHALIC - Eye Exam Eye Exam: EOMI, Normal appearance - ENT Exam ENT Exam: Mucous Membranes Moist - Neck Exam Neck Exam: Normal Inspection - Respiratory Exam Respiratory Exam: Clear to Ausculation Bilateral, NORMAL BREATHING PATTERN - Cardiovascular Exam Cardiovascular Exam: REGULAR RHYTHM, +S1, +S2 - GI/Abdominal Exam GI & Abdominal Exam: Normal Bowel Sounds - Neurological Exam Neurological Exam: Alert, Awake - Psychiatric Exam Psychiatric exam: Normal Affect Assessment and Plan - Assessment and Plan (Free Text) Assessment: 62 yo female from a nursing home, with hx of DM II, schizophrenia and HTN; initially admitted for sepsis and pneumonia. Initial labs were significant for leukocytosis with bandemia; CXR showed atelectasis vs infiltrate and pt was started on vancomycin, zosyn and zithromax IV. During the admission, the pt was found to be bradycardic and became unresponsive. Code Blue was called for suspected Pulseless Electrical Activity; compressions done ,was achieved after 3 rounds of epinephrine. She was then transferred to ICU. When weaned off sedation, mental status changes appreciated per family when compared to her baseline believed to be effect of being off her psych medication. Patient was undergoing titration of clozaril, however, due to decline of WBC/ANC, clozaril was discontinued and Risperdal taper was started. Patient now on riseperdal 2.0 gm bid. Daughter willing to be POA however, patient is not able to sign over POA in current condition. Plan: 1. Altered Mental Status - Improved significantly since restarting Clozapine, however, decline in WBC/ANC, was d/c on 09/04 and Risperdal taper was started - s/p empirical treatment with IV Acyclovir - Lumbar puncture unremarkable and Cx negative - MRI of Brain - no signs of stroke nor encephalitis - AMS may be due to Schizophrenia - Psych Dr. Williamson: discontinued Clozapine 50mg - started Risperdal 0.5 mg PO BID on 09/04/18 by Psych, as per Psych recs, increase by 0.5 daily for 4 days total. Then re-call Psych - Spoke with Dr. Williamson, recommendations are: continue with current dose of Risperdal 2 mg BID Patient passed Modified Barium Video Swallow Eval done yesterday, now in regular diet with thin liquids as per dietitian recommendations Patient doing PT. Per PT report, patient is demonstrating improving, improving safety awareness and obstacle avoidance. -c/w 1:1 observation 2. Urinary Retention - Failed voiding trial on 09/03. Ray catheter discontinued. F/u on bladder scan. - Continue with bladder training - Urology Dr. Dominguez - C/W Flomax 0.4mg qdaily 3. Hypertension - Normotensive - cont Amlodipine, Coreg, Hydralazine, and Losartan - c/w monitoring BP 4. DM - c/w Iinsulin lispro correction scale - c/w Levemir 10 Units SC HS - Dysphagia, modified, diabetic diet 5. Localization-related (focal) (partial) symptomatic epilepsy - as per neuro due to pts infection and antipsychotics lowered seizure threshold; appear to have resolved now - cont Depakote and Vimpat 6.Hypothyrodism -Chronic, uncontrolled -Levothyroxine 50 mcg daily 7. Schizophrenia - Chronic - Psych Dr. Williamson: discontinued Clozapine 50mg, started Risperdal 0.5 mg PO BID and increase by 0.5 daily for 4 days total. Patient on 2.0 mg PO BID daily. 8. DVT prophylaxis - Lovenox 40mg SC QD - SCDs 9. Deconditioning - PT/OT: improved bed mobility, able to completed lateral steps 10. Dispo planning -Patient stable for discharge. Subacute rehab as per PT.
[2018-09-11] MEDS: Insulin Detemir 100 Units/ml Inj SC SCH (21:21)
[2018-09-12] MEDS: Levothyroxine 50 MCG TAB PO SCH (06:25)
[2018-09-12] MEDS: Insulin Lispro (humaLOG) 100 Units/ml Inj SC SCH ×4 (08:26→22:30)
[2018-09-12] MEDS: Enoxaparin 40 mg Syringe SC SCH (08:31)
[2018-09-12] MEDS: Valproic Acid 250 mg/5 ml UD Cup PO SCH ×4 (08:35→22:32)
[2018-09-12] MEDS: Multi Vitamins 15 mL UD Oral Solution PO SCH (08:36)
--- NOTE | 2018-09-12 12:05 | CP.PCM.PN ---
Subjective - Date & Time of Evaluation Date of Evaluation: 09/12/18 Time of Evaluation: 11:00 - Subjective Subjective: Pt is afebrile more awake , alert, interacts with people and more verbal participating with PT Has been off 1;1 since last week Still retaining urine - d/c Ray , pt able to void however has large amount of residual, Ray reinserted Good appetite Objective - Vital Signs/Intake and Output Vital Signs (last 24 hours): Temp Pulse Resp BP Pulse Ox 97.7 F 69 19 124/75 97 09/12/18 07:56 09/12/18 07:56 09/12/18 07:56 09/12/18 08:35 09/12/18 07:56 Intake and Output: 09/12/18 09/12/18 06:59 18:59 Intake Total 400 Output Total 1600 Balance -1200 - Medications Medications: Current Medications Acetaminophen (Tylenol 325mg Tab) 650 mg PO Q6 PRN PRN Reason: Fever >100.4 F Last Admin: 08/30/18 17:12 Dose: 650 mg Acetaminophen (Tylenol 650mg/20.3ml Solution Ud) 650 mg PO Q6 PRN PRN Reason: Temperature Last Admin: 08/18/18 11:22 Dose: 650 mg Amlodipine Besylate (Norvasc) 10 mg PO DAILY [facility] Last Admin: 09/12/18 08:35 Dose: 10 mg Atorvastatin Calcium (Lipitor) 10 mg PO HS [facility] Last Admin: 09/11/18 21:21 Dose: 10 mg Bethanechol Chloride (Urecholine) 10 mg PO TID [facility] Last Admin: 09/12/18 09:00 Dose: Not Given Carvedilol (Coreg) 25 mg PO Q12 [facility] Last Admin: 09/12/18 08:36 Dose: 25 mg Dextrose (Dextrose 50% Inj) 0 ml IV STAT PRN; Protocol PRN Reason: Hypoglycemia Protocol Last Admin: 08/25/18 16:44 Dose: 50 ml Dextrose (Glutose 15) 0 gm PO ONCE PRN; Protocol PRN Reason: Hypoglycemia Protocol Enoxaparin Sodium (Lovenox) 40 mg SC DAILY [facility]; Protocol Last Admin: 09/12/18 08:31 Dose: 40 mg Glucagon (Glucagen Diagnostic Kit) 0 mg IM STAT PRN; Protocol PRN Reason: Hypoglycemia Protocol Hydralazine HCl (Apresoline) 20 mg PO TID [facility] Last Admin: 09/12/18 08:35 Dose: 20 mg Ibuprofen (Motrin Tab) 600 mg PO Q6 PRN PRN Reason: Fever >100.4 F Last Admin: 08/19/18 07:23 Dose: 600 mg Insulin Detemir (Levemir) 10 units SC [facility] Last Admin: 09/11/18 21:21 Dose: 10 u Insulin Human Lispro (Humalog) 0 units SC [facility]; Protocol Last Admin: 09/12/18 08:26 Dose: Not Given Lactulose (Enulose) 20 gm PO Q12 PRN PRN Reason: Constipation Last Admin: 09/09/18 08:42 Dose: 20 gm Levothyroxine Sodium (Synthroid) 50 mcg PO DAILY@0630 [facility] Last Admin: 09/12/18 06:25 Dose: 50 mcg Metformin HCl (Glucophage) 850 mg PO BID [facility] Last Admin: 09/12/18 08:35 Dose: 850 mg Multivitamins/Vitamin C (Multi-Delyn Liquid) 15 ml PO DAILY [facility] Last Admin: 09/12/18 08:36 Dose: 15 ml Risperidone (Risperdal Tab) 2 mg PO Q12 [facility] Last Admin: 09/12/18 08:32 Dose: 2 mg Tamsulosin HCl (Flomax) 0.4 mg PO DAILY [facility] Last Admin: 09/12/18 08:32 Dose: 0.4 mg Valproate Sodium (Depakene Oral Soln) 500 mg PO QID [facility] Last Admin: 09/12/18 08:35 Dose: 500 mg - Labs Labs: 09/08/18 05:40 09/08/18 05:40 PT 12.2 Seconds (9.8-13.1) 08/04/18 00:30 INR 1.1 08/04/18 00:30 APTT 31.5 Seconds (25.6-37.1) 08/02/18 22:20 - Constitutional Appears: Non-toxic, No Acute Distress - Head Exam Head Exam: ATRAUMATIC, NORMAL INSPECTION, NORMOCEPHALIC - Eye Exam Eye Exam: EOMI, Normal appearance, PERRL Pupil Exam: NORMAL ACCOMODATION - ENT Exam ENT Exam: Mucous Membranes Moist, Normal External Ear Exam - Neck Exam Neck Exam: Full ROM. absent: Meningismus - Respiratory Exam Respiratory Exam: Rhonchi, NORMAL BREATHING PATTERN. absent: Rales, Wheezes, Respiratory Distress - Cardiovascular Exam Cardiovascular Exam: REGULAR RHYTHM, +S1, +S2 - GI/Abdominal Exam GI & Abdominal Exam: Soft, Normal Bowel Sounds. absent: Tenderness - Extremities Exam Extremities Exam: Full ROM, Normal Capillary Refill. absent: Calf Tenderness, P edal Edema - Back Exam Back Exam: Full ROM. absent: CVA tenderness (L), CVA tenderness (R), paraspinal tenderness, vertebral tenderness - Neurological Exam Neurological Exam: Alert, Awake Neuro motor strength exam: Left Upper Extremity: 5, Right Upper Extremity: 5, Left Lower Extremity: 5, Right Lower Extremity: 5 Additional comments: oriented to person and place - Psychiatric Exam Psychiatric exam: Normal Affect, Normal Mood - Skin Skin Exam: Dry, Normal Color, Warm Assessment and Plan - Assessment and Plan (Free Text) Assessment: 62 yo female , resides in [facility] ( psych) , with hx of DM II, Schizophrenia and HTN; initially admitted for sepsis and pneumonia. Initial labs were significant for leukocytosis with bandemia; CXR showed atelectasis vs infiltrate and pt was started on vancomycin, zosyn and zithromax IV. During the admission, the pt was found to be bradycardic and became unresponsive. Code Blue was called for suspected Pulseless Electrical Activity; compressions done and responded after 3 Epinephrine . She was then transferred to ICU. Intubated. When weaned off sedation, mental status changes appreciated per family when compared to her baseline believed to be effect of being off her psych medication. Patient was undergoing titration of clozaril, however, due to Agranulocytosis, Clozaril was discontinued and Risperdal was started. Patient now on Riseperdal 2.0 mg bid. Mentally pt is slowly getting better. PT consulted - rec VIRAL placement. Pt developed Urinary Retention ( Bladder training in progress ) Plan: 1. Altered Mental Status likely Toxic Metabolic Enceph and due to Psych condition - Improved significantly since restarting Clozapine, however, decline in WBC/ANC, was d/c on 09/04 and Risperdal was started - s/p empirical treatment with IV Acyclovir - Lumbar puncture unremarkable and Cultures negative - MRI of Brain - no signs of stroke nor encephalitis - AMS may be due to Schizophrenia - Psych Dr. Williamson: discontinued Clozapine 50mg - started Risperdal 0.5 mg PO BID on 09/04/18 by Psych, as per Psych recs, increase by 0.5 daily for 4 days total. Then re-call Psych - Spoke with Dr. Williamson, recommendations are: continue with current dose of Risperdal 2 mg BID Patient passed Modified Barium Video Swallow Eval done yesterday, now in regular diet with thin liquids as per dietitian recommendations Patient doing PT. Per PT report, patient is demonstrating improving, improving safety awareness and obstacle avoidance. 2. Urinary Retention - Failed voiding trial , Ray reinserted - Continue with bladder training - Urology Dr. Dominguez - C/W Flomax 0.4mg qdaily - Add low dose Betanechol 3. Hypertension - Normotensive - cont Amlodipine, Coreg, Hydralazine, and Losartan - c/w monitoring BP 4. DM - c/w Iinsulin lispro correction scale - c/w Levemir 10 Units SC HS - Dysphagia, modified, diabetic diet 5. Localization-related (focal) (partial) symptomatic epilepsy - as per neuro due to pts infection and antipsychotics lowered seizure threshold; appear to have resolved now - cont Depakote and Vimpat 6.Hypothyrodism -Chronic, uncontrolled -Levothyroxine 50 mcg daily 7. Schizophrenia - Chronic - Psych Dr. Williamson: discontinued Clozapine 50mg, started Risperdal 0.5 mg PO BID and increase by 0.5 daily for 4 days total. Patient on 2.0 mg PO BID daily. 8. DVT prophylaxis - Lovenox 40mg SC QD - [facility]CD[facility] 9. Deconditioning - PT/OT , rec VIRAL 10.Pneumonia Bacterial completd IV abx treatmmmment Dispo planning -Patient stable for discharge. Subacute rehab as per PT.
[2018-09-12] MEDS: Lacosamide 50 MG Tab PO SCH (17:21)
[2018-09-12] MEDS: Insulin Detemir 100 Units/ml Inj SC SCH (22:03)
[2018-09-13 07:35] LABS: BASO % 0.7 % (0.0-2.0); EOS # 0.2 K/uL (0.0-0.7); EOS % 2.7 % (0.0-4.0); HEMOGLOBIN 8.8 g/dL (12.0-16.0); LYMPH # 1.9 K/uL (1.0-4.3); LYMPH % 28.4 % (20.0-40.0); MEAN CELL VOLUME 84.2 fl (81.0-99.0); MEAN CORPUSCULAR HEMOGLOBIN 27.8 pg (27.0-31.0); MEAN PLATELET VOLUME 7.8 fl (7.2-11.7); MONO # 0.8 K/uL (0.0-0.8); MONO % 11.1 % (0.0-10.0); NEUT # 3.9 K/uL (1.8-7.0); NEUT % 57.1 % (50.0-75.0); NRBC % 0.1 % (0.0-0.0); RBC 3.17 Mil/uL (3.80-5.20); RED CELL DISTRIBUTION WIDTH 20.2 % (11.5-14.5); WHITE BLOOD COUNT 6.8 K/uL (4.8-10.8)
[2018-09-13] MEDS: Levothyroxine 50 MCG TAB PO SCH (07:50)
[2018-09-13 08:21] LABS: BLOOD UREA NITROGEN 5 mg/dl (7-17); CALCIUM 9.4 mg/dL (8.4-10.2); GFR NON-AFRICAN AMERICAN > 60
[2018-09-13] MEDS: Multi Vitamins 15 mL UD Oral Solution PO SCH (10:27)
[2018-09-13] MEDS: Enoxaparin 40 mg Syringe SC SCH (10:27)
[2018-09-13] MEDS: Valproic Acid 250 mg/5 ml UD Cup PO SCH ×4 (10:28→22:20)
[2018-09-13] MEDS: Insulin Lispro (humaLOG) 100 Units/ml Inj SC SCH ×4 (10:31→22:18)
[2018-09-13] MEDS: Lacosamide 50 MG Tab PO SCH ×2 (10:34→22:25)
--- NOTE | 2018-09-13 11:59 | CP.PCM.PN ---
Subjective - Date & Time of Evaluation Date of Evaluation: 09/13/18 Time of Evaluation: 10:00 - Subjective Subjective: Pt is awake , alert, sitted on a chair eating by herself, good appetite more verbal oriented to person and place happy that we are d/c her Ray cath denies CP no SOB no abd pain Objective - Vital Signs/Intake and Output Vital Signs (last 24 hours): Temp Pulse Resp BP Pulse Ox 97.7 F 66 20 134/70 98 09/13/18 08:44 09/13/18 08:44 09/13/18 08:44 09/13/18 10:30 09/13/18 08:44 - Medications Medications: Current Medications Acetaminophen (Tylenol 325mg Tab) 650 mg PO Q6 PRN PRN Reason: Fever >100.4 F Last Admin: 08/30/18 17:12 Dose: 650 mg Acetaminophen (Tylenol 650mg/20.3ml Solution Ud) 650 mg PO Q6 PRN PRN Reason: Temperature Last Admin: 08/18/18 11:22 Dose: 650 mg Amlodipine Besylate (Norvasc) 10 mg PO DAILY [facility] Last Admin: 09/13/18 10:30 Dose: 10 mg Atorvastatin Calcium (Lipitor) 10 mg PO HS [facility] Last Admin: 09/12/18 21:58 Dose: 10 mg Bethanechol Chloride (Urecholine) 10 mg PO TID [facility] Last Admin: 09/13/18 10:30 Dose: 10 mg Carvedilol (Coreg) 25 mg PO Q12 [facility] Last Admin: 09/13/18 10:28 Dose: 25 mg Dextrose (Dextrose 50% Inj) 0 ml IV STAT PRN; Protocol PRN Reason: Hypoglycemia Protocol Last Admin: 08/25/18 16:44 Dose: 50 ml Dextrose (Glutose 15) 0 gm PO ONCE PRN; Protocol PRN Reason: Hypoglycemia Protocol Enoxaparin Sodium (Lovenox) 40 mg SC DAILY [facility]; Protocol Last Admin: 09/13/18 10:27 Dose: 40 mg Glucagon (Glucagen Diagnostic Kit) 0 mg IM STAT PRN; Protocol PRN Reason: Hypoglycemia Protocol Hydralazine HCl (Apresoline) 20 mg PO TID [facility] Last Admin: 09/13/18 10:29 Dose: 20 mg Ibuprofen (Motrin Tab) 600 mg PO Q6 PRN PRN Reason: Fever >100.4 F Last Admin: 08/19/18 07:23 Dose: 600 mg Insulin Detemir (Levemir) 10 units SC HS [facility] Last Admin: 09/12/18 22:03 Dose: 10 u Insulin Human Lispro (Humalog) 0 units SC [facility]; Protocol Last Admin: 09/13/18 10:31 Dose: Not Given Lacosamide (Vimpat) 100 mg PO BID [facility] Last Admin: 09/13/18 10:34 Dose: 100 mg Lactulose (Enulose) 20 gm PO Q12 PRN PRN Reason: Constipation Last Admin: 09/09/18 08:42 Dose: 20 gm Levothyroxine Sodium (Synthroid) 50 mcg PO DAILY@0630 [facility] Last Admin: 09/13/18 07:50 Dose: 50 mcg Metformin HCl (Glucophage) 850 mg PO BID [facility] Last Admin: 09/13/18 10:30 Dose: 850 mg Multivitamins/Vitamin C (Multi-Delyn Liquid) 15 ml PO DAILY [facility] Last Admin: 09/13/18 10:27 Dose: 15 ml Risperidone (Risperdal Tab) 2 mg PO Q12 [facility] Last Admin: 09/13/18 10:28 Dose: 2 mg Tamsulosin HCl (Flomax) 0.4 mg PO DAILY [facility] Last Admin: 09/13/18 10:28 Dose: 0.4 mg Valproate Sodium (Depakene Oral Soln) 500 mg PO QID [facility] Last Admin: 09/13/18 10:28 Dose: 500 mg - Labs Labs: 09/13/18 06:00 09/13/18 06:00 PT 12.2 Seconds (9.8-13.1) 08/04/18 00:30 INR 1.1 08/04/18 00:30 APTT 31.5 Seconds (25.6-37.1) 08/02/18 22:20 - Constitutional Appears: Non-toxic, No Acute Distress - Head Exam Head Exam: ATRAUMATIC, NORMAL INSPECTION, NORMOCEPHALIC - Eye Exam Eye Exam: EOMI, Normal appearance, PERRL Pupil Exam: NORMAL ACCOMODATION - ENT Exam ENT Exam: Mucous Membranes Moist, Normal External Ear Exam - Neck Exam Neck Exam: Full ROM. absent: Meningismus - Respiratory Exam Respiratory Exam: Rhonchi, NORMAL BREATHING PATTERN. absent: Rales, Wheezes, Respiratory Distress - Cardiovascular Exam Cardiovascular Exam: REGULAR RHYTHM, +S1, +S2 - GI/Abdominal Exam GI & Abdominal Exam: Soft, Normal Bowel Sounds. absent: Tenderness - Extremities Exam Extremities Exam: Full ROM, Normal Capillary Refill. absent: Calf Tenderness, Pedal Edema - Back Exam Back Exam: Full ROM. absent: CVA tenderness (L), CVA tenderness (R), paraspinal tenderness, vertebral tenderness - Neurological Exam Neurological Exam: Alert, Awake Neuro motor strength exam: Left Upper Extremity: 5, Right Upper Extremity: 5, Left Lower Extremity: 5, Right Lower Extremity: 5 Additional comments: oriented to person and place - Psychiatric Exam Psychiatric exam: Normal Affect, Normal Mood - Skin Skin Exam: Dry, Normal Color, Warm Assessment and Plan - Assessment and Plan (Free Text) Assessment: 62 yo female , resides in [facility] ( psych) , with hx of DM II, Schizophrenia and HTN; initially admitted for sepsis and pneumonia. Initial labs were significant for leukocytosis with bandemia; CXR showed atelectasis vs infiltrate and pt was started on vancomycin, zosyn and zithromax IV. During the admission, the pt was found to be bradycardic and became unresponsive. Code Blue was called for suspected Pulseless Electrical Activity; compressions done and responded after 3 Epinephrine . She was then transferred to ICU. Intubated. When weaned off sedation, mental status changes appreciated per family when c ompared to her baseline believed to be effect of being off her psych medication. Patient was undergoing titration of clozaril, however, due to Agranulocytosis, Clozaril was discontinued and Risperdal was started. Patient now on Riseperdal 2.0 mg bid. Mentally pt is slowly getting better. PT consulted - rec VIRAL placement. Pt developed Urinary Retention ( Bladder training in progress ) Plan: 1. Altered Mental Status likely Toxic Metabolic Enceph and due to Psych condition - Improved significantly since restarting Clozapine, however, decline in WBC/ANC, was d/c on 09/04 and Risperdal was started - s/p empirical treatment with IV Acyclovir - Lumbar puncture unremarkable and Cultures negative - MRI of Brain - no signs of stroke nor encephalitis - AMS may be due to Schizophrenia - Psych Dr. Williamson: discontinued Clozapine 50mg - started Risperdal 0.5 mg PO BID on 09/04/18 by Psych, as per Psych recs, increase by 0.5 daily for 4 days total. Then re-call Psych - Spoke with Dr. Williamson, recommendations are: continue with current dose of Risperdal 2 mg BID Patient passed Modified Barium Video Swallow Eval done yesterday, now in regular diet with thin liquids as per dietitian recommendations Patient doing PT. Per PT report, patient is demonstrating improving, improving safety awareness and obstacle avoidance. 2. Urinary Retention - Failed voiding trial , Ray reinserted - Continue with bladder training - Urology Dr. Dominguez - C/W Flomax 0.4mg qdaily - Add low dose Betanechol - will again do voiding trial - will d/c Ray cath today 09/13 3. Hypertension - Normotensive - cont Amlodipine, Coreg, Hydralazine, and Losartan - c/w monitoring BP 4. DM - c/w Iinsulin lispro correction scale - c/w Levemir 10 Units SC HS - Dysphagia, modified, diabetic diet 5. Localization-related (focal) (partial) symptomatic epilepsy - as per neuro due to pts infection and antipsychotics lowered seizure threshold; appear to have resolved now - cont Depakote and Vimpat 6.Hypothyrodism -Chronic, uncontrolled -Levothyroxine 50 mcg daily 7. Schizophrenia - Chronic - Psych Dr. Williamson: discontinued Clozapine 50mg, started Risperdal 0.5 mg PO BID and increase by 0.5 daily for 4 days total. Patient on 2.0 mg PO BID daily. 8. DVT prophylaxis - Lovenox 40mg SC QD - [facility] 9. Deconditioning - PT/OT , rec VIRAL 10. Pneumonia Bacterial completd IV abx treatment
[2018-09-13] MEDS: Insulin Detemir 100 Units/ml Inj SC SCH (22:18)
[2018-09-14] MEDS: Levothyroxine 50 MCG TAB PO SCH (05:48)
--- NOTE | 2018-09-14 06:44 | CP.PCM.PN ---
<Nikki Abreu - Last Filed: 09/14/18 10:07> Subjective - Date & Time of Evaluation Date of Evaluation: 09/14/18 Time of Evaluation: 06:43 - Subjective Subjective: Pt is awake , alert, sitted on a chair eating by herself, good appetite. Patient is more verbal than usual. Patient denies acute overnight events Denies f/n/v/cp/sob/abd pain. Per nurse, patient able to ambulate with assistance. Patient retaining urine approx 1000ml with last bladder scan. Objective - Vital Signs/Intake and Output Vital Signs (last 24 hours): Temp Pulse Resp BP Pulse Ox 98.2 F 67 18 135/65 97 09/14/18 00:32 09/14/18 00:32 09/14/18 00:32 09/14/18 00:32 09/14/18 00:32 - Medications Medications: Current Medications Acetaminophen (Tylenol 325mg Tab) 650 mg PO Q6 PRN PRN Reason: Fever >100.4 F Last Admin: 08/30/18 17:12 Dose: 650 mg Acetaminophen (Tylenol 650mg/20.3ml Solution Ud) 650 mg PO Q6 PRN PRN Reason: Temperature Last Admin: 08/18/18 11:22 Dose: 650 mg Amlodipine Besylate (Norvasc) 10 mg PO DAILY [facility] Last Admin: 09/13/18 10:30 Dose: 10 mg Atorvastatin Calcium (Lipitor) 10 mg PO HS [facility] Last Admin: 09/13/18 22:17 Dose: 10 mg Bethanechol Chloride (Urecholine) 10 mg PO TID [facility] Last Admin: 09/13/18 18:46 Dose: 10 mg Carvedilol (Coreg) 25 mg PO Q12 [facility] Last Admin: 09/13/18 20:30 Dose: 25 mg Dextrose (Dextrose 50% Inj) 0 ml IV STAT PRN; Protocol PRN Reason: Hypoglycemia Protocol Last Admin: 08/25/18 16:44 Dose: 50 ml Dextrose (Glutose 15) 0 gm PO ONCE PRN; Protocol PRN Reason: Hypoglycemia Protocol Enoxaparin Sodium (Lovenox) 40 mg SC DAILY [facility]; Protocol Last Admin: 09/13/18 10:27 Dose: 40 mg Glucagon (Glucagen Diagnostic Kit) 0 mg IM STAT PRN; Protocol PRN Reason: Hypoglycemia Protocol Hydralazine HCl (Apresoline) 20 mg PO TID [facility] Last Admin: 09/13/18 18:44 Dose: 20 mg Ibuprofen (Motrin Tab) 600 mg PO Q6 PRN PRN Reason: Fever >100.4 F Last Admin: 08/19/18 07:23 Dose: 600 mg Insulin Detemir (Levemir) [address] [facility] Last Admin: 09/13/18 22:18 Dose: 10 u Insulin Human Lispro (Humalog) 0 units SC [facility]; Protocol Last Admin: 09/13/18 22:18 Dose: Not Given Lacosamide (Vimpat) 100 mg PO BID [facility] Last Admin: 09/13/18 22:25 Dose: 100 mg Lactulose (Enulose) 20 gm PO Q12 PRN PRN Reason: Constipation Last Admin: 09/09/18 08:42 Dose: 20 gm Levothyroxine Sodium (Synthroid) 50 mcg PO DAILY@0630 [facility] Last Admin: 09/14/18 05:48 Dose: 50 mcg Metformin HCl (Glucophage) 850 mg PO BID [facility] Last Admin: 09/13/18 18:44 Dose: 850 mg Multivitamins/Vitamin C (Multi-Delyn Liquid) 15 ml PO DAILY [facility] Last Admin: 09/13/18 10:27 Dose: 15 ml Risperidone (Risperdal Tab) 2 mg PO Q12 [facility] Last Admin: 09/13/18 20:31 Dose: 2 mg Tamsulosin HCl (Flomax) 0.4 mg PO DAILY [facility] Last Admin: 09/13/18 10:28 Dose: 0.4 mg Valproate Sodium (Depakene Oral Soln) 500 mg PO QID [facility] Last Admin: 09/13/18 22:20 Dose: 500 mg - Labs Labs: 09/13/18 06:00 09/13/18 06:00 PT 12.2 Seconds (9.8-13.1) 08/04/18 00:30 INR 1.1 08/04/18 00:30 APTT 31.5 Seconds (25.6-37.1) 08/02/18 22:20 - Constitutional Appears: Well, Non-toxic - Head Exam Head Exam: ATRAUMATIC, NORMOCEPHALIC - Eye Exam Eye Exam: Normal appearance Pupil Exam: NORMAL ACCOMODATION - ENT Exam ENT Exam: Mucous Membranes Moist - Respiratory Exam Respiratory Exam: Clear to Ausculation Bilateral - Cardiovascular Exam Cardiovascular Exam: REGULAR RHYTHM, +S1, +S2 - GI/Abdominal Exam GI & Abdominal Exam: Normal Bowel Sounds - Neurological Exam Neurological Exam: Alert, Awake - Psychiatric Exam Psychiatric exam: Normal Affect Assessment and Plan - Assessment and Plan (Free Text) Assessment: 62 yo female , resides in detention ( psych) , with hx of DM II, Schizophrenia and HTN; initially admitted for sepsis and pneumonia. Initial labs were significant for leukocytosis with bandemia; CXR showed atelectasis vs infiltrate and pt was started on vancomycin, zosyn and zithromax IV. During the admission, the pt was found to be bradycardic and became unresponsive. Code Blue was called for suspected Pulseless Electrical Activity; compressions done and responded after 3 Epinephrine . She was then transferred to ICU. Intubated. When weaned off sedation, mental status changes appreciated per family when com pared to her baseline believed to be effect of being off her psych medication. Patient was undergoing titration of clozaril, however, due to Agranulocytosis, Clozaril was discontinued and Risperdal was started. Patient now on Riseperdal 2.0 mg bid. Mentally pt is slowly getting better. PT consulted - rec VIRAL placement. Pt developed Urinary Retention ( Bladder training in progress ) Plan: 1. Altered Mental Status likely Toxic Metabolic Enceph and due to Psych condition - Improved significantly since restarting Clozapine, however, decline in WBC/ANC, was d/c on 09/04 and Risperdal was started - s/p empirical treatment with IV Acyclovir - Lumbar puncture unremarkable and Cultures negative - MRI of Brain - no signs of stroke nor encephalitis - AMS may be due to Schizophrenia - Psych Dr. Williamson: discontinued Clozapine 50mg - started Risperdal 0.5 mg PO BID on 09/04/18 by Psych, as per Psych recs, increase by 0.5 daily for 4 days total. Then re-call Psych - Spoke with Dr. Williamson, recommendations are: continue with current dose of Risperdal 2 mg BID Patient passed Modified Barium Video Swallow Eval done yesterday, now in regular diet with thin liquids as per dietitian recommendations Patient doing PT. Per PT report, patient is demonstrating improving, improving safety awareness and obstacle avoidance. 2. Urinary Retention - Failed voiding trial , Ray reinserted - Continue with bladder training - Urology Dr. Dominguez - C/W Flomax 0.4mg qdaily - Add low dose Betanechol 10 mg TID to 20mg TID - will again do voiding trial - will d/c Ray cath today 09/13, patient retaining urine. Straight cath inserted. Continue monitoring 3. Hypertension - Normotensive - cont Amlodipine, Coreg, Hydralazine, and Losartan - c/w monitoring BP 4. DM - c/w Iinsulin lispro correction scale - c/w Levemir 10 Units SC HS - Dysphagia, modified, diabetic diet 5. Localization-related (focal) (partial) symptomatic epilepsy - as per neuro due to pts infection and antipsychotics lowered seizure threshold; appear to have resolved now - cont Depakote and Vimpat 6.Hypothyrodism -Chronic, uncontrolled -Levothyroxine 50 mcg daily 7. Schizophrenia - Chronic - Psych Dr. Williamson: discontinued Clozapine 50mg, started Risperdal 0.5 mg PO BID and increase by 0.5 daily for 4 days total. Patient on 2.0 mg PO BID daily. 8. DVT prophylaxis - Lovenox 40mg SC QD - SCDs 9. Deconditioning - PT/OT - rec VIRAL 10. Pneumonia Bacterial completd IV abx treatment <Baylee Garcia - Last Filed: 09/14/18 18:27> Objective - Vital Signs/Intake and Output Vital Signs (last 24 hours): Temp Pulse Resp BP Pulse Ox 97.9 F 78 20 150/74 97 09/14/18 17:31 09/14/18 17:51 09/14/18 17:31 09/14/18 17:51 09/14/18 17:31 - Medications Medications: Current Medications Acetaminophen (Tylenol 325mg Tab) 650 mg PO Q6 PRN PRN Reason: Fever >100.4 F Last Admin: 08/30/18 17:12 Dose: 650 mg Acetaminophen (Tylenol 650mg/20.3ml Solution Ud) 650 mg PO Q6 PRN PRN Reason: Temp IF PATIENT CANT TAKE TAB Amlodipine Besylate (Norvasc) 10 mg PO DAILY [facility] Last Admin: 09/14/18 09:00 Dose: 10 mg Atorvastatin Calcium (Lipitor) 10 mg PO HS [facility] Last Admin: 09/13/18 22:17 Dose: 10 mg Bethanechol Chloride (Urecholine) 20 mg PO TID [facility] Last Admin: 09/14/18 17:58 Dose: 20 mg Carvedilol (Coreg) 25 mg PO Q12 [facility] Last Admin: 09/14/18 08:54 Dose: 25 mg Dextrose (Dextrose 50% Inj) 0 ml IV STAT PRN; Protocol PRN Reason: Hypoglycemia Protocol Last Admin: 08/25/18 16:44 Dose: 50 ml Dextrose (Glutose 15) 0 gm PO ONCE PRN; Protocol PRN Reason: Hypoglycemia Protocol Enoxaparin Sodium (Lovenox) 40 mg SC DAILY [facility]; Protocol Last Admin: 09/14/18 08:59 Dose: 40 mg Glucagon (Glucagen Diagnostic Kit) 0 mg IM STAT PRN; Protocol PRN Reason: Hypoglycemia Protocol Hydralazine HCl (Apresoline) 20 mg PO TID [facility] Last Admin: 09/14/18 17:51 Dose: 20 mg Ibuprofen (Motrin Tab) 600 mg PO Q6 PRN PRN Reason: Fever >100.4 F Last Admin: 08/19/18 07:23 Dose: 600 mg Insulin Detemir (Levemir) [address] [facility] Last Admin: 09/13/18 22:18 Dose: 10 u Insulin Human Lispro (Humalog) 0 units SC [facility]; Protocol Last Admin: 09/14/18 17:57 Dose: Not Given Lacosamide (Vimpat) 100 mg PO BID [facility] Last Admin: 09/14/18 18:00 Dose: 100 mg Lactulose (Enulose) 20 gm PO Q12 PRN PRN Reason: Constipation Last Admin: 09/09/18 08:42 Dose: 20 gm Levothyroxine Sodium (Synthroid) 50 mcg PO DAILY@0630 [facility] Last Admin: 09/14/18 05:48 Dose: 50 mcg Metformin HCl (Glucophage) 850 mg PO BID [facility] Last Admin: 09/14/18 17:57 Dose: 850 mg Multivitamins/Vitamin C (Multi-Delyn Liquid) 15 ml PO DAILY [facility] Last Admin: 09/14/18 09:00 Dose: 15 ml Risperidone (Risperdal Tab) 2 mg PO Q12 [facility] Last Admin: 09/14/18 09:01 Dose: 2 mg Tamsulosin HCl (Flomax) 0.4 mg PO DAILY [facility] Last Admin: 09/14/18 08:56 Dose: 0.4 mg Valproate Sodium (Depakene Oral Soln) 500 mg PO QID [facility] Last Admin: 09/14/18 17:56 Dose: 500 mg - Labs Labs: 09/13/18 06:00 09/13/18 06:00 PT 12.2 Seconds (9.8-13.1) 08/04/18 00:30 INR 1.1 08/04/18 00:30 APTT 31.5 Seconds (25.6-37.1) 08/02/18 22:20 Attending/Attestation - Attestation I have personally seen and examined this patient.: Yes I have fully participated in the care of the patient.: Yes I have reviewed all pertinent clinical information, including history, physical exam and plan: Yes Notes (Text): Additional Note: Plan to d/c pt to [facility] for further PT/OT once able to consent for placement Mentally improving , cont Risperdal Urinary Retention -Ray off since yesterday , intermittent catheterization done - increase Betanechol dose to 20 mg tid
[2018-09-14] MEDS: Insulin Lispro (humaLOG) 100 Units/ml Inj SC SCH ×4 (06:59→22:30)
[2018-09-14] MEDS: Valproic Acid 250 mg/5 ml UD Cup PO SCH ×4 (08:55→21:44)
[2018-09-14] MEDS: Enoxaparin 40 mg Syringe SC SCH (08:59)
[2018-09-14] MEDS: Multi Vitamins 15 mL UD Oral Solution PO SCH (09:00)
[2018-09-14] MEDS ORDERED: Povidone Iodine Topical 10% Sol ONE (10:10)
[2018-09-14] MEDS: Lacosamide 50 MG Tab PO SCH ×4 (11:14→18:40)
[2018-09-14] MEDS ORDERED: Acetaminophen 650mg/20.3ml solution UD PO PRN (15:15)
[2018-09-14] MEDS: Insulin Detemir 100 Units/ml Inj SC SCH (21:46)
[2018-09-15 06:38] LABS: BLOOD UREA NITROGEN 4 mg/dl (7-17); CALCIUM 8.9 mg/dL (8.4-10.2); GFR NON-AFRICAN AMERICAN > 60
[2018-09-15] MEDS: Levothyroxine 50 MCG TAB PO SCH (06:42)
--- NOTE | 2018-09-15 06:43 | CP.PCM.PN ---
<BradyNikki - Last Filed: 09/15/18 11:55> Subjective - Date & Time of Evaluation Date of Evaluation: 09/15/18 Time of Evaluation: 06:41 - Subjective Subjective: Pt is awake , alert, sitted on a chair eating by herself, good appetite. Patient is more verbal than usual. Patient denies acute overnight events Denies f/n/v/cp/sob/abd pain. Per nurse, patient able to ambulate with assistance. Patient retaining urine. Objective - Vital Signs/Intake and Output Vital Signs (last 24 hours): Temp Pulse Resp BP Pulse Ox 98.5 F 71 18 127/61 95 09/15/18 00:55 09/15/18 00:55 09/15/18 00:55 09/15/18 00:55 09/15/18 00:55 Intake and Output: 09/14/18 09/15/18 18:59 06:59 Output Total 3080 Balance -3080 - Medications Medications: Current Medications Acetaminophen (Tylenol 325mg Tab) 650 mg PO Q6 PRN PRN Reason: Fever >100.4 F Last Admin: 08/30/18 17:12 Dose: 650 mg Acetaminophen (Tylenol 650mg/20.3ml Solution Ud) 650 mg PO Q6 PRN PRN Reason: Temp IF PATIENT CANT TAKE TAB Amlodipine Besylate (Norvasc) 10 mg PO DAILY [facility] Last Admin: 09/14/18 09:00 Dose: 10 mg Atorvastatin Calcium (Lipitor) 10 mg PO HS [facility] Last Admin: 09/14/18 21:44 Dose: 10 mg Bethanechol Chloride (Urecholine) 20 mg PO TID [facility] Last Admin: 09/14/18 17:58 Dose: 20 mg Carvedilol (Coreg) 25 mg PO Q12 [facility] Last Admin: 09/14/18 21:45 Dose: 25 mg Dextrose (Dextrose 50% Inj) 0 ml IV STAT PRN; Protocol PRN Reason: Hypoglycemia Protocol Last Admin: 08/25/18 16:44 Dose: 50 ml Dextrose (Glutose 15) 0 gm PO ONCE PRN; Protocol PRN Reason: Hypoglycemia Protocol Enoxaparin Sodium (Lovenox) 40 mg SC DAILY [facility]; Protocol Last Admin: 09/14/18 08:59 Dose: 40 mg Glucagon (Glucagen Diagnostic Kit) 0 mg IM STAT PRN; Protocol PRN Reason: Hypoglycemia Protocol Hydralazine HCl (Apresoline) 20 mg PO TID [facility] Last Admin: 09/14/18 17:51 Dose: 20 mg Ibuprofen (Motrin Tab) 600 mg PO Q6 PRN PRN Reason: Fever >100.4 F Last Admin: 08/19/18 07:23 Dose: 600 mg Insulin Detemir (Levemir) 10 units SC [facility] Last Admin: 09/14/18 21:46 Dose: 10 u Insulin Human Lispro (Humalog) 0 units SC [facility]; Protocol Last Admin: 09/14/18 22:30 Dose: Not Given Lacosamide (Vimpat) 100 mg PO BID [facility] Last Admin: 09/14/18 18:40 Dose: 100 mg Lactulose (Enulose) 20 gm PO Q12 PRN PRN Reason: Constipation Last Admin: 09/09/18 08:42 Dose: 20 gm Levothyroxine Sodium (Synthroid) 50 mcg PO DAILY@0630 [facility] Last Admin: 09/14/18 05:48 Dose: 50 mcg Metformin HCl (Glucophage) 850 mg PO BID [facility] Last Admin: 09/14/18 17:57 Dose: 850 mg Multivitamins/Vitamin C (Multi-Delyn Liquid) 15 ml PO DAILY [facility] Last Admin: 09/14/18 09:00 Dose: 15 ml Risperidone (Risperdal Tab) 2 mg PO Q12 [facility] Last Admin: 09/14/18 21:45 Dose: 2 mg Tamsulosin HCl (Flomax) 0.4 mg PO DAILY [facility] Last Admin: 09/14/18 08:56 Dose: 0.4 mg Valproate Sodium (Depakene Oral Soln) 500 mg PO QID [facility] Last Admin: 09/14/18 21:44 Dose: 500 mg - Labs Labs: 09/13/18 06:00 09/15/18 05:30 PT 12.2 Seconds (9.8-13.1) 08/04/18 00:30 INR 1.1 08/04/18 00:30 APTT 31.5 Seconds (25.6-37.1) 08/02/18 22:20 - Constitutional Appears: Well, Non-toxic - Head Exam Head Exam: ATRAUMATIC, NORMOCEPHALIC - ENT Exam ENT Exam: Mucous Membranes Moist - Respiratory Exam Respiratory Exam: Clear to Ausculation Bilateral, NORMAL BREATHING PATTERN - Cardiovascular Exam Cardiovascular Exam: REGULAR RHYTHM, +S1, +S2 - Neurological Exam Neurological Exam: Alert, Awake - Psychiatric Exam Psychiatric exam: Normal Affect Assessment and Plan - Assessment and Plan (Free Text) Assessment: 62 yo female , resides in [facility] ( psych) , with hx of DM II, Schizophrenia and HTN; initially admitted for sepsis and pneumonia. Initial labs were significant for leukocytosis with bandemia; CXR showed atelectasis vs infiltrate and pt was started on vancomycin, zosyn and zithromax IV. During the admission, the pt was found to be bradycardic and became unresponsive. Code Blue was called for suspected Pulseless Electrical Activity; compressions done and responded after 3 Epinephrine . She was then transferred to ICU. Intubated. When weaned off sedation, mental status changes appreciated per family when compared to her baseline believed to be effect of being off her psych medication. Patient was undergoing titration of clozaril, however, due to Agran ulocytosis, Clozaril was discontinued and Risperdal was started. Patient now on Riseperdal 2.0 mg bid. Mentally pt is slowly getting better. PT consulted - rec VIRAL placement. Pt developed Urinary Retention ( Bladder training in progress ) Plan: 1. Altered Mental Status likely Toxic Metabolic Enceph and due to Psych condition - Improved significantly since restarting Clozapine, however, decline in WBC/ANC, was d/c on 09/04 and Risperdal was started - s/p empirical treatment with IV Acyclovir - Lumbar puncture unremarkable and Cultures negative - MRI of Brain - no signs of stroke nor encephalitis - AMS may be due to Schizophrenia - Psych Dr. Williamson: discontinued Clozapine 50mg - started Risperdal 0.5 mg PO BID on 09/04/18 by Psych, as per Psych recs, increase by 0.5 daily for 4 days total. Then re-call Psych - Spoke with Dr. Williamson, recommendations are: continue with current dose of Risperdal 2 mg BID Patient passed Modified Barium Video Swallow Eval done yesterday, now in regular diet with thin liquids as per dietitian recommendations Patient doing PT. Per PT report, patient is demonstrating improving, improving safety awareness and obstacle avoidance. 2. Urinary Retention - Failed voiding trial , Ray reinserted - Continue with bladder training - Urology Dr. Cacace - C/W Flomax 0.4mg qdaily - Add low dose Betanechol 10 mg TID to 20mg TID - will again do voiding trial - patient retaining urine. Straight cath inserted. Continue monitoring 3. Hypertension - Normotensive - cont Amlodipine, Coreg, Hydralazine, and Losartan - c/w monitoring BP 4. DM - c/w Iinsulin lispro correction scale - c/w Levemir 10 Units SC HS - Dysphagia, modified, diabetic diet 5. Localization-related (focal) (partial) symptomatic epilepsy - as per neuro due to pts infection and antipsychotics lowered seizure threshold; appear to have resolved now - cont Depakote and Vimpat 6.Hypothyrodism -Chronic, uncontrolled -Levothyroxine 50 mcg daily 7. Schizophrenia - Chronic - Psych Dr. Williamson: discontinued Clozapine 50mg, started Risperdal 0.5 mg PO BID and increase by 0.5 daily for 4 days total. Patient on 2.0 mg PO BID daily. 8. DVT prophylaxis - Lovenox 40mg SC QD - SCDs 9. Deconditioning - PT/OT - rec VIRAL 10. Pneumonia Bacterial completd IV abx treatment <Kera Naylor - Last Filed: 09/16/18 10:30> Objective - Vital Signs/Intake and Output Vital Signs (last 24 hours): Temp Pulse Resp BP Pulse Ox 97.9 F 64 18 131/71 95 09/16/18 09:00 09/16/18 10:21 09/16/18 09:00 09/16/18 10:21 09/16/18 09:00 Intake and Output: 09/16/18 09/16/18 06:59 18:59 Output Total 3300 Balance -3300 - Medications Medications: Current Medications Acetaminophen (Tylenol 325mg Tab) 650 mg PO Q6 PRN PRN Reason: Fever >100.4 F Last Admin: 08/30/18 17:12 Dose: 650 mg Acetaminophen (Tylenol 650mg/20.3ml Solution Ud) 650 mg PO Q6 PRN PRN Reason: Temp IF PATIENT CANT TAKE TAB Amlodipine Besylate (Norvasc) 10 mg PO DAILY [facility] Last Admin: 09/16/18 10:21 Dose: 10 mg Atorvastatin Calcium (Lipitor) 10 mg PO HS [facility] Last Admin: 09/15/18 21:22 Dose: 10 mg Bethanechol Chloride (Urecholine) 20 mg PO TID [facility] Last Admin: 09/16/18 10:22 Dose: 20 mg Carvedilol (Coreg) 25 mg PO Q12 [facility] Last Admin: 09/16/18 10:19 Dose: 25 mg Dextrose (Dextrose 50% Inj) 0 ml IV STAT PRN; Protocol PRN Reason: Hypoglycemia Protocol Last Admin: 08/25/18 16:44 Dose: 50 ml Dextrose (Glutose 15) 0 gm PO ONCE PRN; Protocol PRN Reason: Hypoglycemia Protocol Enoxaparin Sodium (Lovenox) 40 mg SC DAILY [facility]; Protocol Last Admin: 09/16/18 10:20 Dose: 40 mg Glucagon (Glucagen Diagnostic Kit) 0 mg IM STAT PRN; Protocol PRN Reason: Hypoglycemia Protocol Hydralazine HCl (Apresoline) 20 mg PO TID [facility] Last Admin: 09/16/18 10:18 Dose: 20 mg Insulin Detemir (Levemir) 10 units SC [facility] Last Admin: 09/15/18 21:23 Dose: 10 u Insulin Human Lispro (Humalog) 0 units SC [facility]; Protocol Last Admin: 09/16/18 06:50 Dose: Not Given Lacosamide (Vimpat) 100 mg PO BID [facility] Last Admin: 09/15/18 17:14 Dose: 100 mg Lactulose (Enulose) 20 gm PO Q12 PRN PRN Reason: Constipation Last Admin: 09/09/18 08:42 Dose: 20 gm Levothyroxine Sodium (Synthroid) 50 mcg PO DAILY@0630 [facility] Last Admin: 09/16/18 05:57 Dose: 50 mcg Metformin HCl (Glucophage) 850 mg PO BID [facility] Last Admin: 09/16/18 10:20 Dose: 850 mg Multivitamins/Vitamin C (Multi-Delyn Liquid) 15 ml PO DAILY [facility] Last Admin: 09/16/18 10:21 Dose: 15 ml Risperidone (Risperdal Tab) 2 mg PO Q12 [facility] Last Admin: 09/16/18 10:22 Dose: 2 mg Tamsulosin HCl (Flomax) 0.4 mg PO DAILY [facility] Last Admin: 09/16/18 10:20 Dose: 0.4 mg Valproate Sodium (Depakene Oral Soln) 500 mg PO QID [facility] Last Admin: 09/16/18 10:19 Dose: 500 mg - Labs Labs: 09/13/18 06:00 09/15/18 05:30 PT 12.2 Seconds (9.8-13.1) 08/04/18 00:30 INR 1.1 08/04/18 00:30 APTT 31.5 Seconds (25.6-37.1) 08/02/18 22:20 Attending/Attestation - Attestation I have personally seen and examined this patient.: Yes I have fully participated in the care of the patient.: Yes I have reviewed all pertinent clinical information, including history, physical exam and plan: Yes Notes (Text): 09/16/18 10:30 Agree with findings and plan as above.
[2018-09-15] MEDS: Valproic Acid 250 mg/5 ml UD Cup PO SCH ×4 (08:37→21:22)
[2018-09-15] MEDS: Enoxaparin 40 mg Syringe SC SCH (08:37)
[2018-09-15] MEDS: Multi Vitamins 15 mL UD Oral Solution PO SCH (08:39)
[2018-09-15] MEDS: Insulin Lispro (humaLOG) 100 Units/ml Inj SC SCH ×4 (08:40→21:23)
[2018-09-15] MEDS: Lacosamide 50 MG Tab PO SCH ×2 (13:25→17:14)
[2018-09-15 16:01] VITALS: RESP 18
[2018-09-15] MEDS: Insulin Detemir 100 Units/ml Inj SC SCH (21:23)
[2018-09-16] MEDS: Levothyroxine 50 MCG TAB PO SCH (05:57)
--- NOTE | 2018-09-16 06:45 | CP.PCM.PN ---
Subjective - Date & Time of Evaluation Date of Evaluation: 09/16/18 Time of Evaluation: 06:44 - Subjective Subjective: Pt is awake , alert, sitted on a chair eating by herself, good appetite. Patient is more verbal than usual. Patient denies acute overnight events Denies f/n/v/cp/sob/abd pain. Per nurse, patient able to ambulate with assistance. Patient retaining urine. Objective - Vital Signs/Intake and Output Vital Signs (last 24 hours): Temp Pulse Resp BP Pulse Ox 98.2 F 65 18 121/66 97 09/15/18 23:48 09/15/18 23:48 09/15/18 23:48 09/15/18 23:48 09/15/18 23:48 Intake and Output: 09/15/18 09/16/18 18:59 06:59 Output Total 2500 3300 Balance -2500 -3300 - Medications Medications: Current Medications Acetaminophen (Tylenol 325mg Tab) 650 mg PO Q6 PRN PRN Reason: Fever >100.4 F Last Admin: 08/30/18 17:12 Dose: 650 mg Acetaminophen (Tylenol 650mg/20.3ml Solution Ud) 650 mg PO Q6 PRN PRN Reason: Temp IF PATIENT CANT TAKE TAB Amlodipine Besylate (Norvasc) 10 mg PO DAILY [facility] Last Admin: 09/15/18 08:38 Dose: 10 mg Atorvastatin Calcium (Lipitor) 10 mg PO HS [facility] Last Admin: 09/15/18 21:22 Dose: 10 mg Bethanechol Chloride (Urecholine) 20 mg PO TID [facility] Last Admin: 09/15/18 17:11 Dose: 20 mg Carvedilol (Coreg) 25 mg PO Q12 [facility] Last Admin: 09/15/18 20:20 Dose: 25 mg Dextrose (Dextrose 50% Inj) 0 ml IV STAT PRN; Protocol PRN Reason: Hypoglycemia Protocol Last Admin: 08/25/18 16:44 Dose: 50 ml Dextrose (Glutose 15) 0 gm PO ONCE PRN; Protocol PRN Reason: Hypoglycemia Protocol Enoxaparin Sodium (Lovenox) 40 mg SC DAILY [facility]; Protocol Last Admin: 09/15/18 08:37 Dose: 40 mg Glucagon (Glucagen Diagnostic Kit) 0 mg IM STAT PRN; Protocol PRN Reason: Hypoglycemia Protocol Hydralazine HCl (Apresoline) 20 mg PO TID [facility] Last Admin: 09/15/18 17:12 Dose: 20 mg Ibuprofen (Motrin Tab) 600 mg PO Q6 PRN PRN Reason: Fever >100.4 F Last Admin: 08/19/18 07:23 Dose: 600 mg Insulin Detemir (Levemir) 10 units SC HS [facility] Last Admin: 09/15/18 21:23 Dose: 10 u Insulin Human Lispro (Humalog) 0 units SC [facility]; Protocol Last Admin: 09/15/18 21:23 Dose: Not Given Lacosamide (Vimpat) 100 mg PO BID [facility] Last Admin: 09/15/18 17:14 Dose: 100 mg Lactulose (Enulose) 20 gm PO Q12 PRN PRN Reason: Constipation Last Admin: 09/09/18 08:42 Dose: 20 gm Levothyroxine Sodium (Synthroid) 50 mcg PO DAILY@0630 [facility] Last Admin: 09/16/18 05:57 Dose: 50 mcg Metformin HCl (Glucophage) 850 mg PO BID [facility] Last Admin: 09/15/18 17:11 Dose: 850 mg Multivitamins/Vitamin C (Multi-Delyn Liquid) 15 ml PO DAILY [facility] Last Admin: 09/15/18 08:39 Dose: 15 ml Risperidone (Risperdal Tab) 2 mg PO Q12 [facility] Last Admin: 09/15/18 20:21 Dose: 2 mg Tamsulosin HCl (Flomax) 0.4 mg PO DAILY [facility] Last Admin: 09/15/18 08:38 Dose: 0.4 mg Valproate Sodium (Depakene Oral Soln) 500 mg PO QID [facility] Last Admin: 09/15/18 21:22 Dose: 500 mg - Labs Labs: 09/13/18 06:00 09/15/18 05:30 PT 12.2 Seconds (9.8-13.1) 08/04/18 00:30 INR 1.1 08/04/18 00:30 APTT 31.5 Seconds (25.6-37.1) 08/02/18 22:20 Assessment and Plan - Assessment and Plan (Free Text) Assessment: 62 yo female , resides in [facility] ( [facility]) , with hx of DM II, Schizophrenia and HTN; initially admitted for sepsis and pneumonia. Initial labs were significant for leukocytosis with bandemia; CXR showed atelectasis vs infiltrate and pt was started on vancomycin, zosyn and zithromax IV. During the admission, the pt was found to be bradycardic and became unresponsive. Code Blue was called for suspected Pulseless Electrical Activity; compressions done and responded after 3 Epinephrine . She was then transferred to ICU. Intubated. When weaned off sedation, mental status changes appreciated per family when compared to her baseline believed to be effect of being off her psych medication . Patient was undergoing titration of clozaril, however, due to Agranulocytosis, Clozaril was discontinued and Risperdal was started. Patient now on Riseperdal 2.0 mg bid. Mentally pt is slowly getting better. PT consulted - rec VIRAL placement. Pt developed Urinary Retention ( Bladder training in progress ) Plan: 1. Altered Mental Status likely Toxic Metabolic Enceph and due to Psych condition - Improved significantly since restarting Clozapine, however, decline in WBC/ANC, was d/c on 09/04 and Risperdal was started - s/p empirical treatment with IV Acyclovir - Lumbar puncture unremarkable and Cultures negative - MRI of Brain - no signs of stroke nor encephalitis - AMS may be due to Schizophrenia - Psych Dr. Williamson: discontinued Clozapine 50mg - started Risperdal 0.5 mg PO BID on 09/04/18 by Psych, as per Psych recs, increase by 0.5 daily for 4 days total. Then re-call Psych - Spoke with Dr. Williamson, recommendations are: continue with current dose of Risperdal 2 mg BID Patient passed Modified Barium Video Swallow Eval done yesterday, now in regular diet with thin liquids as per dietitian recommendations Patient doing PT. Per PT report, patient is demonstrating improving, improving safety awareness and obstacle avoidance. 2. Urinary Retention - Failed voiding trial , Ray reinserted - Continue with bladder training - Urology Dr. Dominguez - C/W Flomax 0.4mg qdaily - Betanechol 50 mg TID - will again do voiding trial - patient retaining urine. Ray catheter inserted, bladder training in 6 weeks. 3. Hypertension - Normotensive - cont Amlodipine, Coreg, Hydralazine, and Losartan - c/w monitoring BP 4. DM - c/w Iinsulin lispro correction scale - c/w Levemir 10 Units SC HS - Dysphagia, modified, diabetic diet 5. Localization-related (focal) (partial) symptomatic epilepsy - as per neuro due to pts infection and antipsychotics lowered seizure threshold; appear to have resolved now - cont Depakote and Vimpat 6.Hypothyrodism -Chronic, uncontrolled -Levothyroxine 50 mcg daily 7. Schizophrenia - Chronic - Psych Dr. Williamson: discontinued Clozapine 50mg, started Risperdal 0.5 mg PO BID and increase by 0.5 daily for 4 days total. Patient on 2.0 mg PO BID daily. 8. DVT prophylaxis - Lovenox 40mg SC QD - SCDs 9. Deconditioning - PT/OT - rec VIRAL 10. Pneumonia Bacterial completd IV abx treatment
[2018-09-16] MEDS: Insulin Lispro (humaLOG) 100 Units/ml Inj SC SCH ×3 (06:50→16:29)
[2018-09-16] MEDS: Valproic Acid 250 mg/5 ml UD Cup PO SCH ×3 (10:19→16:29)
[2018-09-16] MEDS: Enoxaparin 40 mg Syringe SC SCH (10:20)
[2018-09-16] MEDS: Multi Vitamins 15 mL UD Oral Solution PO SCH (10:21)
[2018-09-16] MEDS: Lacosamide 50 MG Tab PO SCH ×3 (11:30→16:32)
[2018-09-16] MEDS: Bethanechol 50 MG TAB PO SCH ×2 (13:35→16:31)
--- NOTE | 2018-09-16 13:38 | CP.PCM.DIS ---
Provider - Provider Date of Admission: 08/02/18 23:48 Attending physician: Leonardo Peña Consults: 08/03/18 03:15 Infectious Disease Consult Routine Comment: Consulting Provider: Richard Castorena Consulting Physician: Richard Castorena Reason for Consult: sepsis 08/04/18 13:05 Pulmonology Consult Routine Comment: Consulting Provider: Chong Sky Consulting Physician: Chong Sky Reason for Consult: intubated on Vent 08/05/18 11:29 Neurology Consult Routine Comment: Consulting Provider: Cj Keller Consulting Physician: Cj Keller Reason for Consult: change in mental status, questionable seizure 08/08/18 08:00 Pastoral Care Referral Routine Comment: Physician Instructions: Reason For Exam: admission 08/08/18 09:00 Case Management Referral Routine Comment: Physician Instructions: Reason For Exam: admission Reason for Referral: Applications Programmer Eval 08/14/18 11:55 Psychiatry Consult Routine Comment: Consulting Provider: Mary Ann Skinner Consulting Physician: Mary Ann Skinner Reason for Consult: AMS, hx of schizophrenia, poss hx of seizure 08/17/18 08:43 Anesthesiology Consult Routine Comment: Consulting Provider: OWEN HOLM Consulting Physician: OWEN HOLM Reason for Consult: needs LP 08/23/18 20:23 Podiatry Consult Routine Comment: Consulting Provider: Colin Ji Consulting Physician: Colin Ji Reason for Consult: Abnormal Toe nails 09/04/18 08:04 Urology Consult Routine Comment: Consulting Provider: Cindy Dominguez Consulting Physician: Cindy Dominguez Reason for Consult: urinary retention 09/09/18 14:01 Psychiatry Consult Routine Comment: hx of schizophrenia, re-evaluation of Risperidone Consulting Provider: Mary Ann Skinner Consulting Physician: Mary Ann Skinner Reason for Consult: hx of schizophrenia, re-evaluation of Risperidone Time Spent in preparation of Discharge (in minutes): 30 Diagnosis - Discharge Diagnosis (1) Severe sepsis Status: Resolved Hospital Course - Lab Results Lab Results: Micro Results 08/08/18 08:00 Other: Please Indicate Mycobacterial Culture - Preliminary 08/24/18 11:31 Naris MRSA Culture (Admit) - Final MRSA NOT DETECTED 08/15/18 10:20 Blood Blood Culture - Final NO GROWTH AFTER 5 DAYS 08/15/18 10:20 Blood Gram Stain - Final TEST NOT PERFORMED 08/15/18 10:25 Blood Blood Culture - Final NO GROWTH AFTER 5 DAYS 08/15/18 10:25 Blood Gram Stain - Final TEST NOT PERFORMED 08/15/18 11:20 Urine,Olivera Urine Culture - Final Yeast Species 08/15/18 11:20 Trachasp Gram Stain - Final 08/15/18 11:20 Trachasp Sputum Culture - Final NORMAL ORAL CHRISTOPHER 08/11/18 18:30 Blood Blood Culture - Final NO GROWTH AFTER 5 DAYS 08/11/18 18:30 Blood Gram Stain - Final TEST NOT PERFORMED 08/11/18 18:20 Blood Blood Culture - Final NO GROWTH AFTER 5 DAYS 08/11/18 18:20 Blood Gram Stain - Final TEST NOT PERFORMED 08/12/18 20:46 Trachasp Gram Stain - Final 08/12/18 20:46 Trachasp Sputum Culture - Final NORMAL SAPROPHYTIC CHRISTOPHER 08/11/18 17:02 Urine,Olivera Urine Culture - Final No Growth (<1,000 CFU/ML) 08/03/18 16:41 Blood Blood Culture - Final NO GROWTH AFTER 5 DAYS 08/03/18 16:41 Blood Gram Stain - Final TEST NOT PERFORMED 08/03/18 16:31 Blood Blood Culture - Final NO GROWTH AFTER 5 DAYS 08/03/18 16:31 Blood Gram Stain - Final TEST NOT PERFORMED 08/06/18 08:21 Sputum Induced Gram Stain - Final 08/06/18 08:21 Sputum Induced Sputum Culture - Final No growth. 08/02/18 22:10 Blood-Venous Blood Culture - Final NO GROWTH AFTER 5 DAYS 08/02/18 22:10 Blood-Venous Gram Stain - Final TEST NOT PERFORMED 08/02/18 22:05 Blood-Venous Blood Culture - Final NO GROWTH AFTER 5 DAYS 08/02/18 22:05 Blood-Venous Gram Stain - Final TEST NOT PERFORMED 08/04/18 08:03 Sputum Gram Stain - Final 08/04/18 08:03 Sputum Sputum Culture - Final NORMAL ORAL CHRISTOPHER 08/04/18 17:25 Naris MRSA Culture (Admit) - Final MRSA NOT DETECTED 08/02/18 22:58 Urine,Catheterized Urine Culture - Final No Growth (<1,000 CFU/ML) Most Recent Lab Values WBC 6.8 K/uL (4.8-10.8) D 09/13/18 06:00 RBC 3.17 Mil/uL (3.80-5.20) L 09/13/18 06:00 Hgb 8.8 g/dL (12.0-16.0) L 09/13/18 06:00 Hct 26.7 % (34.0-47.0) L 09/13/18 06:00 MCV 84.2 fl (81.0-99.0) 09/13/18 06:00 MCH 27.8 pg (27.0-31.0) 09/13/18 06:00 MCHC 33.0 g/dL (33.0-37.0) 09/13/18 06:00 RDW 20.2 % (11.5-14.5) H 09/13/18 06:00 Plt Count 332 K/uL (130-400) 09/13/18 06:00 MPV 7.8 fl (7.2-11.7) 09/13/18 06:00 Neut % (Auto) 57.1 % (50.0-75.0) 09/13/18 06:00 Lymph % (Auto) 28.4 % (20.0-40.0) 09/13/18 06:00 [facility] % (Auto) 11.1 % (0.0-10.0) H 09/13/18 06:00 Eos % (Auto) 2.7 % (0.0-4.0) 09/13/18 06:00 Baso % (Auto) 0.7 % (0.0-2.0) 09/13/18 06:00 Neut # (Auto) 3.9 K/uL (1.8-7.0) 09/13/18 06:00 Lymph # (Auto) 1.9 K/uL (1.0-4.3) 09/13/18 06:00 [facility] # (Auto) 0.8 K/uL (0.0-0.8) 09/13/18 06:00 Eos # (Auto) 0.2 K/uL (0.0-0.7) 09/13/18 06:00 Baso # (Auto) 0.0 K/uL (0.0-0.2) 09/13/18 06:00 Neutrophils % (Manual) 58 % (42-75) 08/02/18 22:20 Band Neutrophils % 19 % (0-2) H* 10/28/18 22:20 Lymphocytes % (Manual) 18 % (20-50) L 08/02/18 22:20 Monocytes % (Manual) 4 % (0-10) 08/02/18 22:20 Eosinophils % (Manual) 1 % (0-7) 08/02/18 22:20 Toxic Granulation Present 08/02/18 22:20 Platelet Estimate Normal (NORMAL) 08/02/18 22:20 Hypochromasia (manual) Slight 08/02/18 22:20 Anisocytosis (manual) Slight 08/02/18 22:20 Microcytosis (manual) Slight 08/02/18 22:20 PT 12.2 Seconds (9.8-13.1) 08/04/18 00:30 INR 1.1 08/04/18 00:30 APTT 31.5 Seconds (25.6-37.1) 08/02/18 22:20 pCO2 40 mm/Hg (35-45) 08/20/18 05:19 pO2 79 mm/Hg (80-100) L 08/20/18 05:19 HCO3 32.0 mmol/L (21-28) H 08/20/18 05:19 ABG pH 7.52 (7.35-7.45) H 08/20/18 05:19 ABG Total CO2 33.9 mmol/L (22-28) H 08/20/18 05:19 ABG O2 Saturation 97.7 % (95-98) 08/20/18 05:19 ABG O2 Content 15.5 ML/dL (15-23) 08/20/18 05:19 ABG Base Excess 9.1 mmol/L (-2.0-3.0) H 08/20/18 05:19 ABG Hemoglobin 11.5 g/dL (11.7-17.4) L 08/20/18 05:19 ABG Carboxyhemoglobin 1.9 % (0.5-1.5) H 08/20/18 05:19 POC ABG HHb (Measured) 2.2 % (0.0-5.0) 08/20/18 05:19 ABG Methemoglobin 0.8 % (0.0-3.0) 08/20/18 05:19 ABG O2 Capacity 15.9 mL/dL (16-24) L 08/20/18 05:19 Bridger Test Yes 08/20/18 05:19 ABG Potassium 3.3 mmol/L (3.6-5.2) L 08/17/18 04:00 VBG pH 7.39 (7.32-7.43) 08/03/18 02:09 VBG pCO2 41 mmHg (40-60) 08/03/18 02:09 VBG HCO3 24.4 mmol/L 08/03/18 02:09 VBG Total CO2 26.1 mmol/L (22-28) 08/03/18 02:09 VBG O2 Sat (Calc) 87.5 % (40-65) H 08/03/18 02:09 VBG Base Excess -0.2 mmol/L (0.0-2.0) L 08/03/18 02:09 VBG Potassium 3.7 mmol/L (3.6-5.2) 08/03/18 02:09 A-a O2 Difference 71.0 mm/Hg 08/20/18 05:19 Hgb O2 Saturation 95.2 % (95.0-98.0) 08/20/18 05:19 Sodium 143.0 mmol/L (132-148) 08/17/18 04:00 Chloride 107.0 mmol/L (98-107) 08/17/18 04:00 Glucose 395 mg/dL (65-105) H 08/17/18 04:00 Lactate 1.8 mmol/L (0.7-2.1) 08/17/18 04:00 Vent Mode Cpap/ps 08/19/18 12:16 Mechanical Rate 450 08/19/18 05:13 FiO2 28.0 % 08/20/18 05:19 Tidal Volume 14 08/19/18 05:13 PEEP 5 08/19/18 12:16 Pressure Support 08/05/18 04:29 CPAP 10 08/11/18 10:50 Sodium 129 mmol/l (132-148) L 09/15/18 05:30 Potassium 3.7 MMOL/L (3.6-5.0) 09/15/18 05:30 Chloride 96 mmol/L (98-107) L 09/15/18 05:30 Carbon Dioxide 27 mmol/L (22-30) 09/15/18 05:30 Anion Gap 10 (10-20) 09/15/18 05:30 BUN 4 mg/dl (7-17) L 09/15/18 05:30 Creatinine 0.5 mg/dl (0.7-1.2) L 09/15/18 05:30 Est GFR ( Amer) > 60 09/15/18 05:30 Est GFR (Non-Af Amer) > 60 09/15/18 05:30 POC Glucose (mg/dL) 155 mg/dL (65-110) H 09/16/18 11:32 Random Glucose 101 mg/dL (65-105) 09/15/18 05:30 Hemoglobin A1c 9.5 % (4.2-6.5) H 08/02/18 23:48 Lactic Acid 1.9 MMOL/L (0.7-2.1) 08/03/18 04:25 Calcium 8.9 mg/dL (8.4-10.2) 09/15/18 05:30 Phosphorus 3.0 mg/dl (2.5-4.5) 08/29/18 05:30 Magnesium 1.9 MG/DL (1.6-2.3) 08/29/18 05:30 Total Bilirubin 0.8 mg/dl (0.2-1.3) 08/20/18 04:40 GGT 72 U/L (8-78) 08/05/18 06:00 AST 28 U/L (14-36) 08/20/18 04:40 ALT 29 U/L (9-52) 08/20/18 04:40 Alkaline Phosphatase 95 U/L (38-126) 08/20/18 04:40 Lactate Dehydrogenase 765 U/L (313-618) H 08/18/18 17:22 Total Creatine Kinase 119 U/L (30-135) 08/18/18 04:30 Troponin I 0.0150 ng/mL (0.00-0.120) 08/04/18 13:46 NT-Pro-B Natriuret Pep 994 pg/ml (0-900) H 08/02/18 22:20 Total Protein 8.5 G/DL (6.3-8.2) H 08/20/18 04:40 Albumin 4.3 g/dL (3.5-5.0) 08/20/18 04:40 Globulin 4.2 gm/dL (2.2-3.9) H 08/20/18 04:40 Albumin/Globulin Ratio 1.0 (1.0-2.1) 08/20/18 04:40 Triglycerides 294 mg/DL (0-149) H 08/02/18 22:20 Cholesterol 244 mg/dL (0-199) H 08/02/18 22:20 LDL Cholesterol Direct 135 mg/dL (0-129) H 08/02/18 22:20 HDL Cholesterol 41 MG/DL (30-70) 08/02/18 22:20 Procalcitonin < 0.05 NG/ML (0.19-0.49) L 08/19/18 04:30 Free T4 1.54 ng/dL (0.78-2.19) 08/04/18 04:45 Thyroxine (T4) 5.66 ug/dl (5.5-11.0) 08/16/18 15:24 Total T3 0.458 nmol/L (1.49-2.60) L 08/16/18 15:24 TSH 3rd Generation 1.11 mIU/ML (0.46-4.68) 08/16/18 15:24 Arterial Blood Potassium 3.3 mmol/L (3.6-5.2) L 08/17/18 04:00 Venous Blood Potassium 3.7 mmol/L (3.6-5.2) 08/03/18 02:09 Urine Color Yellow (YELLOW) 08/02/18 22:58 Urine Clarity Slighty-cloudy (Clear) 08/02/18 22:58 Urine pH 6.0 (5.0-8.0) 08/02/18 22:58 Ur Specific Bunch 1.017 (1.003-1.030) 08/02/18 22:58 Urine Protein >=500 mg/dL (NEGATIVE) 08/02/18 22:58 Urine Glucose (UA) Neg mg/dL (Normal) 08/02/18 22:58 Urine Ketones Trace mg/dL (NEGATIVE) 08/02/18 22:58 Urine Blood Negative (NEGATIVE) 08/02/18 22:58 Urine Nitrate Negative (NEGATIVE) 08/02/18 22:58 Urine Bilirubin Negative (NEGATIVE) 08/02/18 22:58 Urine Urobilinogen 4.0 mg/dL (0.2-1.0) H 08/02/18 22:58 Ur Leukocyte Esterase Neg Araceli/uL (Negative) 08/02/18 22:58 Urine RBC (Auto) 5 /hpf (0-3) H 08/02/18 22:58 Urine Microscopic WBC 1 /hpf (0-5) 08/02/18 22:58 Ur Squamous Epith Cells < 1 /hpf (0-5) 08/02/18 22:58 Fluid Type Spinal fluid 08/17/18 15:40 CSF Volume 1 mL (0-1) 08/17/18 15:40 CSF Appearance Clear/colorless (CLEAR) 08/17/18 15:40 CSF WBC 1.0 /mm3 (0.0-5.0) 08/17/18 15:40 CSF RBC 3.0 /mm3 (0.0-0.0) H 08/17/18 15:40 CSF Total Cell Counted TEST NOT PERFORMED 08/17/18 15:40 CSF Neutrophils Starch Cooker 08/17/18 15:40 CSF Monos/Macrophages TEST NOT PERFORMED 08/17/18 15:40 CSF Glucose 169 mg/dL (40-70) H* 08/17/18 15:40 CSF Total Protein 72.0 mg/dL (12-60) H 08/17/18 15:40 CSF Lyme Disease DNA Not detected 08/17/18 15:40 Vancomycin Trough 11.6 ug/mL (5.0-10.0) H 08/06/18 04:40 Valproic Acid 98.4 ug/mL (50.0-100.0) 08/28/18 08:18 Lacosamide Level 9.2 mcg/mL 08/28/18 05:30 Cold Agglutinins Negative (NEGATIVE) 08/03/18 04:25 SHEILA Screen Negative (Negative) 08/14/18 20:50 RPR Nonreactive (NONREACTIVE) 08/14/18 20:50 Lyme Specimen Source Csf 08/17/18 15:40 Lyme Disease Screen <0.90 index 08/14/18 20:50 Hepatitis A IgM Ab Negative (NEGATIVE) 08/09/18 14:48 Hep Bs Antigen Negative (NEGATIVE) 08/09/18 14:48 Hep B Core IgM Ab Negative (NEGATIVE) 08/09/18 14:48 Hepatitis C Antibody Negative (NEGATIVE) 08/09/18 14:48 HSV Source Description Csf 08/17/18 15:40 HSV I DNA PCR Not detected (Not Detected) 08/17/18 15:40 HSV II DNA PCR Not detected (Not Detected) 08/17/18 15:40 HIV 1&2 Ag/Ab, 4th Gen Nonreactive (Nonreactive) 08/05/18 17:14 HIV 1&2 Antibody Screen Negative (NEGATIVE) 08/05/18 17:14 Influenza Typ A,B (EIA) Negative for flu a/b (NEGATIVE) 08/02/18 23:20 H.influenzae Type B Ag Negative (NEGATIVE) 08/17/18 15:40 Legionella Culture See note 08/05/18 08:18 Ur L.pneumophila Ag Negative (NEGATIVE) 08/03/18 17:14 Mycobacterial Culture See note 08/09/18 08:00 N.meningitidis ACY/W135 Negative (NEGATIVE) 08/17/18 15:40 N.meningi B/E.coli K1 Ag Negative (NEGATIVE) 08/17/18 15:40 Group B Strep Antigen Negative (NEGATIVE) 08/17/18 15:40 S. pneumoniae Antigen Negative (NEGATIVE) 08/17/18 15:40 TB Test (QFT) Nil 0.08 IU/mL 08/06/18 09:30 TB Test Mitogen - Nil 0.15 IU/mL 08/06/18 09:30 TB Test TB - Nil 0.02 IU/mL 08/06/18 09:30 TB Test (QFT) Indeterminate (Negative) H 08/06/18 09:30 Blood Type A POSITIVE 08/02/18 22:20 Antibody Screen Negative 08/02/18 22:20 BBK History Checked No verified bt 08/02/18 22:20 - Hospital Course Hospital Course: 62 yo female , resides in [facility] [place] ( [facility]) , with hx of DM II, Schizophrenia and HTN; initially admitted for sepsis and pneumonia. Initial labs were significant for leukocytosis with bandemia; CXR showed atelectasis vs infiltrate and pt was started on vancomycin, zosyn and zithromax IV. During the admission, the pt was found to be bradycardic and became unresponsive. Code Blue was called for suspected Pulseless Electrical Activity; compressions done and responded after 3 Epinephrine . She was then transferred to ICU. Intubated. When weaned off sedation, mental status changes appreciated per family when compared to her baseline believed to be effect of being off her psych medication. Patient was undergoing titration of clozaril, however, due to Agranulocytosis, Clozaril was discontinued and Risperdal was started. Patient now on Riseperdal 2.0 mg bid. M entally pt is slowly getting better. PT consulted - rec VIRAL placement. Pt developed Urinary Retention ( Bladder training in progress ). Patient is continously retaining urine approx 1000ml. Possible neurogenic bladder. Bethanechol 50 mg TID. Patient to be discharged with olivera catheter for 6 weeks and bladder training after 6 weeks. Discharge Exam - Head Exam Head Exam: ATRAUMATIC, NORMOCEPHALIC - Eye Exam Eye Exam: EOMI, Normal appearance Pupil Exam: NORMAL ACCOMODATION - ENT Exam ENT Exam: Mucous Membranes Moist - Respiratory Exam Respiratory Exam: NORMAL BREATHING PATTERN - Cardiovascular Exam Cardiovascular Exam: REGULAR RHYTHM, +S1, +S2 - GI/Abdominal Exam GI & Abdominal Exam: Normal Bowel Sounds - Neurological Exam Neurological exam: Alert - Psychiatric Exam Psychiatric exam: Normal Affect - Skin Skin Exam: Normal Color Discharge Plan - Follow Up Plan Condition: GOOD Disposition: HOME/ ROUTINE Instructions: Sepsis, Adult (DC), Community-Acquired Pneumonia, Adult (DC), Sepsis (DC), Sepsis (GEN) Additional Instructions: Patient needs follow up with Urologist, Dr. Dominguez. Can be discharged to [facility] with olivera catheter. Keep in for 6 weeks, and then start bladder training as per Urologist recommendations. Referrals: Mary Ann Skinner MD [Medical Doctor] - Cindy Dominguez MD [Medical Doctor] - Colin Ji DPM [Staff Provider] - Cj Keller MD [Medical Doctor] -
[2018-09-16 16:33] VITALS: BP 111/64; PULSE 64
[2018-09-16 16:37] VITALS: TEMP 98.3; O2SAT 97
== END 2018-09-16 18:35 | DRG 870 ==
LOC: H.ER 21:43 → H.ERHOLD 23:48 → H.TEL 08-03 02:50 → H.ICU/CCU 08-04 00:45 → H.MEDSURG1 08-25 01:38
PROVIDERS: ADMIT Internal Medicine; ATTEND Internal Medicine
PROC: 5A1955Z Respiratory Ventilation, Greater than 96 Consecutive Hours (ICD-10-PCS; principal; 2018-08-03)
PROC: 0BH17EZ Insertion of Endotracheal Airway into Trachea, Via Natural or Artificial Opening (ICD-10-PCS; 2018-08-03)
PROC: 0BH17EZ Insertion of Endotracheal Airway into Trachea, Via Natural or Artificial Opening (ICD-10-PCS; 2018-08-12)
PROC: 009U3ZX Drainage of Spinal Canal, Percutaneous Approach, Diagnostic (ICD-10-PCS; 2018-08-17)
DX: A41.9 Sepsis, unspecified organism (principal); J15.9 Unspecified bacterial pneumonia; J69.0 Pneumonitis due to inhalation of food and vomit; G93.41 Metabolic encephalopathy; J96.01 Acute respiratory failure with hypoxia; I46.9 Cardiac arrest, cause unspecified; E87.0 Hyperosmolality and hypernatremia; E87.4 Mixed disorder of acid-base balance; G40.211 Localization-related (focal) (partial) symptomatic epilepsy and epileptic syndromes with complex partial seizures, intractable, with status epilepticus; G93.1 Anoxic brain damage, not elsewhere classified; N17.9 Acute kidney failure, unspecified; J91.8 Pleural effusion in other conditions classified elsewhere; J98.11 Atelectasis; Z99.11 Dependence on respirator [ventilator] status; N39.0 Urinary tract infection, site not specified; R65.20 Severe sepsis without septic shock; E11.65 Type 2 diabetes mellitus with hyperglycemia; D50.9 Iron deficiency anemia, unspecified; I10 Essential (primary) hypertension; E03.9 Hypothyroidism, unspecified; E11.649 Type 2 diabetes mellitus with hypoglycemia without coma; E86.0 Dehydration; E87.6 Hypokalemia; E87.70 Fluid overload, unspecified; E78.00 Pure hypercholesterolemia, unspecified; F25.9 Schizoaffective disorder, unspecified; R33.8 Other retention of urine; K21.9 Gastro-esophageal reflux disease without esophagitis; R76.11 Nonspecific reaction to tuberculin skin test without active tuberculosis; K59.00 Constipation, unspecified; Z78.1 Physical restraint status; F17.210 Nicotine dependence, cigarettes, uncomplicated; Z79.4 Long term (current) use of insulin; Z79.82 Long term (current) use of aspirin; Z87.01 Personal history of pneumonia (recurrent)

== ENCOUNTER 2018-09-16 14:07 | Inpatient (IN) | payer MEDICARE, MEDICAID ==
[2018-09-16 18:53] VITALS: BMI 33.6
[2018-09-16] MEDS ORDERED: Acetaminophen 650mg/20.3ml solution UD PO PRN (20:14)
[2018-09-16] MEDS ORDERED: ACETAMINOPHEN 325 MG PO PRN (20:14)
[2018-09-16] MEDS ORDERED: INSULIN LISPRO 100 UNIT SQ SCH (22:00)
[2018-09-16] MEDS: Insulin Detemir 100 Units/ml Inj SC SCH (22:30)
[2018-09-16] MEDS: Insulin Lispro (humaLOG) 100 Units/ml Inj SC SCH (22:31)
[2018-09-16] MEDS: Lacosamide 50 MG Tab PO SCH (22:34)
[2018-09-16] MEDS ORDERED: Dextrose 50% SYRINGE Inj (50 ml) IVP PRN (23:04)
[2018-09-17] MEDS: Valproic Acid 250 mg/5 ml UD Cup PO SCH ×5 (00:06→23:50)
[2018-09-17] MEDS: Levothyroxine 50 MCG TAB PO SCH (06:14)
[2018-09-17] MEDS: Insulin Lispro (humaLOG) 100 Units/ml Inj SC SCH ×4 (07:21→21:39)
[2018-09-17] MEDS: Enoxaparin 40 mg Syringe SC SCH (08:08)
[2018-09-17] MEDS: Bethanechol 50 MG TAB PO SCH ×3 (08:09→17:13)
[2018-09-17] MEDS: Multi Vitamins 15 mL UD Oral Solution PO SCH (08:12)
[2018-09-17] MEDS: Lacosamide 50 MG Tab PO SCH ×2 (08:14→21:28)
--- NOTE | 2018-09-17 11:21 | CP.PCM.HP ---
History of Present Illness - History of Present Illness History of Present Illness: Chief Complaint : Physical Deconditioning- transferred to Rehab for Physical and Occupational therapy HPI : 62 yo female , [facility] with Psychiatric problems , with hx of DM II, Schizophrenia and HTN, was initially admitted to the Acute Medical Unit for Sepsis and Pneumonia. She had a complicated hospital stay - she was found to be bradycardic and became unresponsive. Code Blue was called for suspected Pulseless Electrical Activity, chest compressions done and she responded after 3 Epinephrine . She was Intubated and transferred to ICU. After she was weaned off the Vent, and Sepsis has resolved, mental status changes were appreciated per family when compared to her baseline and this was due to the effect of being off her Psych medication. She was taken off Clozaril due to the SE of the medication of lowering seizure threshold . Patient was undergoing uptitration of Clozaril, however, due to Agranulocytosis, Clozaril was discontinued and Risperdal was started. Patient's medical problems improved , mental status also improved however she became sevrely physically deconditioned and also developed Urinary Retention. Physical and Occupational therapy as well as Urology were consulted Present on Admission - Present on Admission Any Indicators Present on Admission: Yes Urinary Catheter: Yes Review of Systems - Review of Systems All systems: reviewed and no additional remarkable complaints except - Constitutional Constitutional: absent: Chills, Fever - EENT Eyes: absent: Blurred Vision, Change in Vision Ears: absent: Dizziness Nose/Mouth/Throat: absent: Nasal Congestion - Cardiovascular Cardiovascular: absent: Chest Pain, Dyspnea on Exertion, Paroxysmal Nocturnal Dyspnea - Respiratory Respiratory: absent: Dyspnea, Dyspnea on Exertion - Gastrointestinal Gastrointestinal: absent: Abdominal Pain, Loose Stools, Nausea - Genitourinary Genitourinary: Other (Urinary retention) - Integumentary Integumentary: absent: Rash - Neurological Neurological: Other (gait instability). absent: Focal Weakness - Psychiatric Psychiatric: Anxiety, Confusion, Depression - Endocrine Endocrine: absent: Polydipsia, Polyphagia, Polyuria - Hematologic/Lymphatic Hematologic: absent: Easy Bleeding, Easy Bruising Past Patient History - Infectious Disease Hx of Infectious Diseases: None - Tetanus Immunizations Tetanus Immunization: Unknown - Past Medical History & Family History Past Medical History?: Yes Past Family History: Reviewed and not pertinent - Past Social History Smoking Status: Light Smoker < 10 Cigarettes Daily Alcohol: None Drugs: Denies Home Situation {Lives}: Other ([facility]) Domestic Violence: Negative - CARDIAC Hx Hypercholesterolemia: Yes Hx Hypertension: Yes - PULMONARY Hx Respiratory Disorders: Yes Hx Pneumonia: Yes - NEUROLOGICAL Hx Neurological Disorder: Yes Hx Seizures: Yes - HEENT Hx HEENT Problems: No Other/Comment: wear glasses - RENAL Hx Chronic Kidney Disease: No - ENDOCRINE/METABOLIC Hx Endocrine Disorders: Yes Hx Diabetes Mellitus Type 2: Yes Hx Hypothyroidism: Yes - HEMATOLOGICAL/ONCOLOGICAL Hx Blood Disorders: No Hx AIDS: No Hx Blood Transfusions: Yes Hx Blood Transfusion Reaction: No Hx Human Immunodeficiency Virus (HIV): No - INTEGUMENTARY Hx Dermatological Problems: No - MUSCULOSKELETAL/RHEUMATOLOGICAL Hx Falls: Yes - GASTROINTESTINAL Hx Gastritis: Yes - GENITOURINARY/GYNECOLOGICAL Hx Genitourinary Disorders: Yes Other/Comment: HX. Urinary retention - PSYCHIATRIC Hx Psychophysiologic Disorder: Yes Hx Depression: Yes Hx Schizophrenia: Yes Hx Substance Use: No - SURGICAL HISTORY Hx Surgeries: No - ANESTHESIA Hx Anesthesia: No Meds Allergies/Adverse Reactions: Allergies Allergy/AdvReac Type Severity Reaction Status Date / Time No Known Allergies Allergy Verified 09/16/18 20:14 Physical Exam - Constitutional Appears: Non-toxic, No Acute Distress - Head Exam Head Exam: NORMAL INSPECTION - Eye Exam Eye Exam: EOMI, Normal appearance, PERRL - ENT Exam ENT Exam: Mucous Membranes Moist, Normal External Ear Exam - Neck Exam Neck exam: Positive for: Full Rom. Negative for: Meningismus - Respiratory Exam Respiratory Exam: NORMAL BREATHING PATTERN. absent: Respiratory Distress - Cardiovascular Exam Cardiovascular Exam: REGULAR RHYTHM, +S1, +S2 - GI/Abdominal Exam GI & Abdominal Exam: Normal Bowel Sounds, Soft. absent: Tenderness - Extremities Exam Extremities exam: Positive for: full ROM, normal capillary refill, pedal pulses present. Negative for: calf tenderness, pedal edema - Back Exam Back exam: FULL ROM. absent: CVA tenderness (L), CVA tenderness (R) - Neurological Exam Neurological exam: Alert, CN II-XII Intact, Oriented x3, Reflexes Normal - Psychiatric Exam Psychiatric exam: Flat Affect - Skin Skin Exam: Dry, Normal Color, Warm Results - Vital Signs Recent Vital Signs: Last Vital Signs Temp 98.1 F 09/17/18 08:21 Pulse 78 09/17/18 08:21 Resp 20 09/17/18 08:21 BP 144/77 12/13/18 08:21 Pulse Ox 98 09/17/18 08:21 - Labs Labs: Laboratory Results - last 24 hr 09/16/18 09/17/18 20:53 06:08 POC Glucose (mg/dL) 127 H 130 H Assessment & Plan - Assessment and Plan (Free Text) Assessment: 1. Physical Deconditioning, Gait Instability - Physical and occupational therapy 2. Urinary Retention - Failed voiding trial , Ray reinserted - Continue with bladder training - Urology Dr. Dominguez- keep Ray for 6 wks - cont Betanechol 3. Hypertension - cont Amlodipine, Coreg, Hydralazine, and Losartan - c/w monitoring BP 4. DM - c/w Iinsulin lispro correction scale - c/w Levemir 10 Units SC HS - Dysphagia, modified, diabetic diet 5. Localization-related (focal) (partial) symptomatic epilepsy - as per neuro due to pts infection and antipsychotics lowered seizure threshold; appear to have resolved now - cont Depakote and Vimpat 6.Hypothyrodism -Chronic, uncontrolled -Levothyroxine 50 mcg daily 7. Schizophrenia - Chronic - cont Risperdal 2.0 mg PO BID d 8. DVT prophylaxis - Lovenox 40mg SC QD - SCDs Decision To Admit - Pt Status Changed To: Hospital Disposition Of: Inpatient - Admit Certification Admit to Inpatient:: After my assessment, the patient will require hospitalization for at least two midnights. This is because of the severity of symptoms shown, intensity of services needed, and/or the medical risk in this patient being treated as an outpatient. - . Bed Request Type: Acute Rehab Admitting Physician: Baylee Garcia
--- NOTE | 2018-09-17 13:30 | PCM.OPOC ---
Physiatry Overall Plan of Care - Overall Plan of Care Estimated Length of Stay in Weeks: 3 Rehab Impairment: Mobility, Gait, Cognition, Balance, Coordination Etiologic Diagnosis: Other (encephalopathy) Rehab/Medical Prognosis: Fair - Anticipated Interventions Physical Therapy:: Yes Occupational Therapy:: Yes Speech Therapy:: Yes Recreational Therapy:: Yes - Therapy Goals Bed Mobility: Supervision Ambulation: Supervision Functional Positional Changes:: Supervision - Discharge Plan Identification of Barriers to Discharge: Cognition, Home Situation Discharge Destination: Home
--- NOTE | 2018-09-17 13:30 | CP.PCM.CON ---
History of Present Illness - History of Present Illness History of Present Illness: Dr Tyson PMR consultation on Yadira Ahumada who has been admitted to [facility] for acute inpatient rehabilitation following an initial admission to [facility] with severe sepsis code called and she was intubated. She was eventually weaned off and extubated. Family noted a change in mental status. She has schizophrenia and lives in fci. Possible seizure activity as well reported. Noted reduced functional capacity Review of Systems - Constitutional Constitutional: absent: Chills - EENT Eyes: absent: Change in Vision Nose/Mouth/Throat: absent: Nasal Congestion - Cardiovascular Cardiovascular: absent: Chest Pain - Respiratory Respiratory: absent: Dyspnea, Hemoptysis - Gastrointestinal Gastrointestinal: absent: Constipation Past Patient History - Infectious Disease Hx of Infectious Diseases: None - Tetanus Immunizations Tetanus Immunization: Unknown - Past Medical History & Family History Past Medical History?: Yes Past Family History: Reviewed and not pertinent - Past Social History Smoking Status: Light Smoker < 10 Cigarettes Daily Alcohol: None Drugs: Denies Home Situation {Lives}: Other (Detention) Domestic Violence: Negative - CARDIAC Hx Hypercholesterolemia: Yes Hx Hypertension: Yes - PULMONARY Hx Respiratory Disorders: Yes Hx Pneumonia: Yes - NEUROLOGICAL Hx Neurological Disorder: Yes Hx Seizures: Yes - HEENT Hx HEENT Problems: No Other/Comment: wear glasses - RENAL Hx Chronic Kidney Disease: No - ENDOCRINE/METABOLIC Hx Endocrine Disorders: Yes Hx Diabetes Mellitus Type 2: Yes Hx Hypothyroidism: Yes - HEMATOLOGICAL/ONCOLOGICAL Hx Blood Disorders: No Hx AIDS: No Hx Blood Transfusions: Yes Hx Blood Transfusion Reaction: No Hx Human Immunodeficiency Virus (HIV): No - INTEGUMENTARY Hx Dermatological Problems: No - MUSCULOSKELETAL/RHEUMATOLOGICAL Hx Falls: Yes - GASTROINTESTINAL Hx Gastritis: Yes - GENITOURINARY/GYNECOLOGICAL Hx Genitourinary Disorders: Yes Other/Comment: HX. Urinary retention - PSYCHIATRIC Hx Psychophysiologic Disorder: Yes Hx Depression: Yes Hx Schizophrenia: Yes Hx Substance Use: No - SURGICAL HISTORY Hx Surgeries: No - ANESTHESIA Hx Anesthesia: No Meds Allergies/Adverse Reactions: Allergies Allergy/AdvReac Type Severity Reaction Status Date / Time No Known Allergies Allergy Verified 09/16/18 20:14 - Medications Medications: Current Medications Acetaminophen (Tylenol 650mg/20.3ml Solution Ud) 650 mg PO Q6 PRN PRN Reason: Temp IF PATIENT CANT TAKE TAB Acetaminophen (Tylenol 325mg Tab) 650 mg PO Q6 PRN PRN Reason: TEMP 100.4/> OR PAIN 4-10 Amlodipine Besylate (Norvasc) 10 mg PO DAILY [facility] Last Admin: 09/17/18 08:11 Dose: 10 mg Atorvastatin Calcium (Lipitor) 10 mg PO HS [facility] Last Admin: 09/16/18 22:28 Dose: 10 mg Bethanechol Chloride (Urecholine) 50 mg PO TID [facility] Last Admin: 09/17/18 13:02 Dose: 50 mg Carvedilol (Coreg) 25 mg PO Q12 [facility] Last Admin: 09/17/18 08:09 Dose: 25 mg Dextrose (Dextrose 50% Inj) 50 ml IVP .STAT PRN PRN Reason: Hypoglycemia protocol Enoxaparin Sodium (Lovenox) 40 mg SC DAILY [facility]; Protocol Last Admin: 09/17/18 08:08 Dose: 40 mg Hydralazine HCl (Apresoline) 20 mg PO Q8 [facility] Last Admin: 09/17/18 13:01 Dose: 20 mg Insulin Detemir (Levemir) 10 units SC [facility] Last Admin: 09/16/18 22:30 Dose: 10 units Insulin Human Lispro (Humalog) 0 units SC [facility]; Protocol Last Admin: 09/17/18 12:00 Dose: Not Given Lacosamide (Vimpat) 100 mg PO Q12 [facility] Last Admin: 09/17/18 08:14 Dose: 100 mg Lactulose (Enulose) 20 gm PO Q12 PRN PRN Reason: Constipation Levothyroxine Sodium (Synthroid) 50 mcg PO DAILY@0630 [facility] Last Admin: 09/17/18 06:14 Dose: 50 mcg Metformin HCl (Glucophage) 850 mg PO BID [facility] Last Admin: 09/17/18 08:08 Dose: 850 mg Multivitamins/Vitamin C (Multi-Delyn Liquid) 15 ml PO DAILY [facility] Last Admin: 09/17/18 08:12 Dose: 15 ml Risperidone (Risperdal Tab) 2 mg PO Q12 [facility] Last Admin: 09/17/18 08:11 Dose: 2 mg Tamsulosin HCl (Flomax) 0.4 mg PO [facility] Last Admin: 09/16/18 22:54 Dose: Not Given Valproate Sodium (Depakene Oral Soln) 500 mg PO Q6 [facility] Last Admin: 09/17/18 12:56 Dose: 500 mg Physical Exam - Constitutional Appears: Non-toxic - Head Exam Head Exam: ATRAUMATIC - Eye Exam Eye Exam: EOMI - ENT Exam ENT Exam: Mucous Membranes Moist - Respiratory Exam Respiratory Exam: NORMAL BREATHING PATTERN - Cardiovascular Exam Cardiovascular Exam: REGULAR RHYTHM - GI/Abdominal Exam GI & Abdominal Exam: absent: Distended - Extremities Exam Extremities exam: Negative for: calf tenderness - Neurological Exam Neurological exam: Alert - Skin Skin Exam: Warm Results - Vital Signs Recent Vital Signs: Last Vital Signs Temp 98.1 F 09/17/18 08:21 Pulse 78 09/17/18 13:01 Resp 20 09/17/18 08:21 BP 144/66 09/17/18 13:01 Pulse Ox 98 09/17/18 08:21 - Labs Labs: Laboratory Results - last 24 hr 09/16/18 09/17/18 20:53 06:08 POC Glucose (mg/dL) 127 H 130 H Assessment & Plan - Assessment and Plan (Free Text) Assessment: PT/OT to continue to help increase functional independence Team conference for d/c planning Pain: controlled Vascular: no evidence of DVT GI: No evidence of constipation or diarrhea She has + Gomez's sign bilaterally consistent with some upper motor dysfunction. I am not sure if this is an acute finding. She did not always have an expected response to our discussion. MRI no focal injury but noted white matter changes present Patient is an excellent acute rehabilitation candidate and will have focused speech, PT, OT and recreational therapy to help facilitate a safe and qian ropriate d/c plan impairment code: 2.9
[2018-09-17] MEDS: Insulin Detemir 100 Units/ml Inj SC SCH (21:38)
[2018-09-18] MEDS: Valproic Acid 250 mg/5 ml UD Cup PO SCH ×3 (06:00→17:02)
[2018-09-18 06:11] LABS: HEMOGLOBIN 8.3 g/dL (12.0-16.0); MEAN CELL VOLUME 83.8 fl (81.0-99.0); MEAN CORPUSCULAR HEMOGLOBIN 27.5 pg (27.0-31.0); MEAN CORPUSCULAR HGB CONC 32.8 g/dL (33.0-37.0); RBC 3.01 Mil/uL (3.80-5.20); RED CELL DISTRIBUTION WIDTH 19.6 % (11.5-14.5); WHITE BLOOD COUNT 4.8 K/uL (4.8-10.8)
[2018-09-18 06:44] LABS: BLOOD UREA NITROGEN 10 mg/dl (7-17); CALCIUM 9.2 mg/dL (8.4-10.2); GFR NON-AFRICAN AMERICAN > 60
[2018-09-18] MEDS: Levothyroxine 50 MCG TAB PO SCH (07:06)
[2018-09-18] MEDS: Insulin Lispro (humaLOG) 100 Units/ml Inj SC SCH ×4 (07:20→21:12)
[2018-09-18] MEDS: Enoxaparin 40 mg Syringe SC SCH (08:48)
[2018-09-18] MEDS: Multi Vitamins 15 mL UD Oral Solution PO SCH (08:49)
[2018-09-18] MEDS: Bethanechol 50 MG TAB PO SCH ×3 (08:50→17:02)
[2018-09-18] MEDS: Lacosamide 50 MG Tab PO SCH ×2 (08:52→21:51)
--- NOTE | 2018-09-18 12:10 | CP.PCM.PN ---
Subjective - Date & Time of Evaluation Date of Evaluation: 09/18/18 Time of Evaluation: 09:30 - Subjective Subjective: no fever Ray in place denies CP no SOB no abd pain participates with Rehab Objective - Vital Signs/Intake and Output Vital Signs (last 24 hours): Temp Pulse Resp BP Pulse Ox 97.9 F 66 20 141/72 98 09/18/18 07:40 09/18/18 08:49 09/18/18 07:40 09/18/18 08:49 09/18/18 07:40 Intake and Output: 09/18/18 09/18/18 06:59 18:59 Intake Total 240 Output Total 2600 Balance -2360 - Medications Medications: Current Medications Acetaminophen (Tylenol 650mg/20.3ml Solution Ud) 650 mg PO Q6 PRN PRN Reason: Temp IF PATIENT CANT TAKE TAB Acetaminophen (Tylenol 325mg Tab) 650 mg PO Q6 PRN PRN Reason: TEMP 100.4/> OR PAIN 4-10 Amlodipine Besylate (Norvasc) 10 mg PO DAILY [facility] Last Admin: 09/18/18 08:49 Dose: 10 mg Atorvastatin Calcium (Lipitor) 10 mg PO HS [facility] Last Admin: 09/17/18 21:29 Dose: 10 mg Bethanechol Chloride (Urecholine) 50 mg PO TID [facility] Last Admin: 09/18/18 08:50 Dose: 50 mg Carvedilol (Coreg) 25 mg PO Q12 [facility] Last Admin: 09/18/18 08:47 Dose: 25 mg Dextrose (Dextrose 50% Inj) 50 ml IVP .STAT PRN PRN Reason: Hypoglycemia protocol Enoxaparin Sodium (Lovenox) 40 mg SC DAILY [facility]; Protocol Last Admin: 09/18/18 08:48 Dose: 40 mg Hydralazine HCl (Apresoline) 20 mg PO Q8 [facility] Last Admin: 09/18/18 06:00 Dose: 20 mg Insulin Detemir (Levemir) 10 units SC HS [facility] Last Admin: 09/17/18 21:38 Dose: 10 units Insulin Human Lispro (Humalog) 0 units SC [facility]; Protocol Last Admin: 09/18/18 07:20 Dose: 1 unit Lacosamide (Vimpat) 100 mg PO Q12 [facility] Last Admin: 09/18/18 08:52 Dose: 100 mg Lactulose (Enulose) 20 gm PO Q12 PRN PRN Reason: Constipation Levothyroxine Sodium (Synthroid) 50 mcg PO DAILY@0630 [facility] Last Admin: 09/18/18 07:06 Dose: 50 mcg Metformin HCl (Glucophage) 850 mg PO BID [facility] Last Admin: 09/18/18 08:48 Dose: 850 mg Multivitamins/Vitamin C (Multi-Delyn Liquid) 15 ml PO DAILY [facility] Last Admin: 09/18/18 08:49 Dose: 15 ml Risperidone (Risperdal Tab) 2 mg PO Q12 [facility] Last Admin: 09/18/18 08:50 Dose: 2 mg Tamsulosin HCl (Flomax) 0.4 mg PO HS [facility] Last Admin: 09/17/18 21:29 Dose: 0.4 mg Valproate Sodium (Depakene Oral Soln) 500 mg PO Q6 [facility] Last Admin: 09/18/18 06:00 Dose: 500 mg - Labs Labs: 09/18/18 05:30 09/18/18 05:40 - Constitutional Appears: Non-toxic, No Acute Distress - Head Exam Head Exam: NORMAL INSPECTION - Eye Exam Eye Exam: EOMI, Normal appearance, PERRL - ENT Exam ENT Exam: Mucous Membranes Moist, Normal External Ear Exam - Neck Exam Neck exam: Positive for: Full Rom. Negative for: Meningismus - Respiratory Exam Respiratory Exam: NORMAL BREATHING PATTERN. absent: Respiratory Distress - Cardiovascular Exam Cardiovascular Exam: REGULAR RHYTHM, +S1, +S2 - GI/Abdominal Exam GI & Abdominal Exam: Normal Bowel Sounds, Soft. absent: Tenderness - Extremities Exam Extremities exam: Positive for: full ROM, normal capillary refill, pedal pulses present. Negative for: calf tenderness, pedal edema sl tremor - Back Exam Back exam: FULL ROM. absent: CVA tenderness (L), CVA tenderness (R) - Neurological Exam Neurological exam: Alert, CN II-XII Intact, Oriented x3, Reflexes Normal - Psychiatric Exam Psychiatric exam: normal mood and affect - Skin Skin Exam: Dry, Normal Color, Warm Assessment and Plan - Assessment and Plan (Free Text) Assessment: 1. Physical Deconditioning, Gait Instability, Reduced Functional Capacity - Physical and occupational therapy 2. Urinary Retention - Failed voiding trial , Ray reinserted - Continue with bladder training - Urology Dr. Dominguez- keep Ray for 6 wks - cont Betanechol 3. Hypertension - cont Amlodipine, Coreg, Hydralazine, and Losartan - c/w monitoring BP 4. DM - c/w Iinsulin lispro correction scale - c/w Levemir 10 Units SC HS - Dysphagia, modified, diabetic diet 5. Localization-related (focal) (partial) symptomatic epilepsy - as per neuro due to pts infection and antipsychotics lowered seizure thresho ld; appear to have resolved now - cont Depakote and Vimpat 6.Hypothyrodism -Chronic, uncontrolled -Levothyroxine 50 mcg daily 7. Schizophrenia - Chronic - cont Risperdal 2.0 mg PO BID 8. DVT prophylaxis - Lovenox 40mg SC QD - SCDs
[2018-09-18] MEDS: Insulin Detemir 100 Units/ml Inj SC SCH (22:25)
[2018-09-19] MEDS: Valproic Acid 250 mg/5 ml UD Cup PO SCH ×5 (00:03→23:37)
[2018-09-19] MEDS: Levothyroxine 50 MCG TAB PO SCH (06:16)
[2018-09-19] MEDS: Insulin Lispro (humaLOG) 100 Units/ml Inj SC SCH ×4 (06:30→21:34)
[2018-09-19] MEDS: Multi Vitamins 15 mL UD Oral Solution PO SCH (09:10)
[2018-09-19] MEDS: Enoxaparin 40 mg Syringe SC SCH (09:10)
[2018-09-19] MEDS: Bethanechol 50 MG TAB PO SCH ×3 (09:11→18:00)
[2018-09-19] MEDS: Lacosamide 50 MG Tab PO SCH ×2 (09:14→21:39)
--- NOTE | 2018-09-19 16:52 | CP.PCM.PN ---
Subjective - Date & Time of Evaluation Date of Evaluation: 09/19/18 Time of Evaluation: 16:50 - Subjective Subjective: Patient seen in the room in good spirits denies sob/cp continues to do well in therapies making progress continue current care Objective - Vital Signs/Intake and Output Vital Signs (last 24 hours): Temp Pulse Resp BP Pulse Ox 98.1 F 82 20 120/80 96 09/19/18 08:51 09/19/18 13:03 09/19/18 08:51 09/19/18 13:03 09/19/18 08:51 Intake and Output: 09/19/18 09/19/18 06:59 18:59 Intake Total 240 Output Total 900 Balance -660 - Medications Medications: Current Medications Acetaminophen (Tylenol 650mg/20.3ml Solution Ud) 650 mg PO Q6 PRN PRN Reason: Temp IF PATIENT CANT TAKE TAB Acetaminophen (Tylenol 325mg Tab) 650 mg PO Q6 PRN PRN Reason: TEMP 100.4/> OR PAIN 4-10 Last Admin: 09/18/18 17:00 Dose: 650 mg Amlodipine Besylate (Norvasc) 10 mg PO DAILY [facility] Last Admin: 09/19/18 09:11 Dose: 10 mg Atorvastatin Calcium (Lipitor) 10 mg PO HS [facility] Last Admin: 09/18/18 21:53 Dose: 10 mg Bethanechol Chloride (Urecholine) 50 mg PO TID [facility] Last Admin: 09/19/18 13:03 Dose: 50 mg Carvedilol (Coreg) 25 mg PO Q12 [facility] Last Admin: 09/19/18 09:15 Dose: 25 mg Dextrose (Dextrose 50% Inj) 50 ml IVP .STAT PRN PRN Reason: Hypoglycemia protocol Enoxaparin Sodium (Lovenox) 40 mg SC DAILY [facility]; Protocol Last Admin: 09/19/18 09:10 Dose: 40 mg Hydralazine HCl (Apresoline) 20 mg PO Q8 [facility] Last Admin: 09/19/18 13:03 Dose: 20 mg Insulin Detemir (Levemir) 10 units SC HS [facility] Last Admin: 09/18/18 22:25 Dose: 10 units Insulin Human Lispro (Humalog) 0 units SC [facility]; Protocol Last Admin: 09/19/18 11:30 Dose: 1 unit Lacosamide (Vimpat) 100 mg PO Q12 [facility] Last Admin: 09/19/18 09:14 Dose: 100 mg Lactulose (Enulose) 20 gm PO Q12 PRN PRN Reason: Constipation Levothyroxine Sodium (Synthroid) 50 mcg PO DAILY@0630 [facility] Last Admin: 09/19/18 06:16 Dose: 50 mcg Metformin HCl (Glucophage) 850 mg PO BID [facility] Last Admin: 09/19/18 09:10 Dose: 850 mg Multivitamins/Vitamin C (Multi-Delyn Liquid) 15 ml PO DAILY [facility] Last Admin: 09/19/18 09:10 Dose: 15 ml Risperidone (Risperdal Tab) 2 mg PO Q12 [facility] Last Admin: 09/19/18 09:11 Dose: 2 mg Tamsulosin HCl (Flomax) 0.4 mg PO HS [facility] Last Admin: 09/18/18 21:52 Dose: 0.4 mg Valproate Sodium (Depakene Oral Soln) 500 mg PO Q6 [facility] Last Admin: 09/19/18 13:01 Dose: 500 mg - Labs Labs: 09/18/18 05:30 09/18/18 05:40
[2018-09-19] MEDS: Insulin Detemir 100 Units/ml Inj SC SCH (21:35)
[2018-09-20] MEDS: Valproic Acid 250 mg/5 ml UD Cup PO SCH ×3 (05:27→17:53)
[2018-09-20] MEDS: Levothyroxine 50 MCG TAB PO SCH (05:30)
[2018-09-20] MEDS: Insulin Lispro (humaLOG) 100 Units/ml Inj SC SCH ×4 (07:03→21:28)
[2018-09-20 08:16] LABS: BASO % 1.1 % (0.0-2.0); EOS # 0.2 K/uL (0.0-0.7); EOS % 4.4 % (0.0-4.0); HEMOGLOBIN 8.3 g/dL (12.0-16.0); LYMPH # 1.8 K/uL (1.0-4.3); LYMPH % 37.8 % (20.0-40.0); MEAN CELL VOLUME 84.1 fl (81.0-99.0); MEAN CORPUSCULAR HEMOGLOBIN 27.7 pg (27.0-31.0); MONO # 0.6 K/uL (0.0-0.8); NEUT # 2.1 K/uL (1.8-7.0); NEUT % 43.7 % (50.0-75.0); NRBC % 0.2 % (0.0-0.0); RBC 2.99 Mil/uL (3.80-5.20); RED CELL DISTRIBUTION WIDTH 19.8 % (11.5-14.5); WHITE BLOOD COUNT 4.8 K/uL (4.8-10.8)
[2018-09-20] MEDS: Lacosamide 50 MG Tab PO SCH ×2 (09:05→21:31)
[2018-09-20] MEDS: Bethanechol 50 MG TAB PO SCH ×3 (09:05→17:53)
[2018-09-20] MEDS: Pantoprazole 20 mg EC Tab PO SCH (09:06)
[2018-09-20] MEDS: Enoxaparin 40 mg Syringe SC SCH (09:08)
[2018-09-20] MEDS: Multi Vitamins 15 mL UD Oral Solution PO SCH (09:08)
[2018-09-20] MEDS: Insulin Detemir 100 Units/ml Inj SC SCH (21:29)
[2018-09-21] MEDS: Valproic Acid 250 mg/5 ml UD Cup PO SCH ×5 (00:13→23:27)
[2018-09-21] MEDS: Levothyroxine 50 MCG TAB PO SCH (05:31)
[2018-09-21] MEDS: Insulin Lispro (humaLOG) 100 Units/ml Inj SC SCH ×4 (07:14→21:10)
[2018-09-21] MEDS: Lacosamide 50 MG Tab PO SCH ×2 (08:12→21:09)
[2018-09-21] MEDS: Enoxaparin 40 mg Syringe SC SCH (08:12)
[2018-09-21] MEDS: Bethanechol 50 MG TAB PO SCH ×3 (08:13→17:05)
[2018-09-21] MEDS: Multi Vitamins 15 mL UD Oral Solution PO SCH (08:15)
[2018-09-21] MEDS: Pantoprazole 20 mg EC Tab PO SCH (08:15)
--- NOTE | 2018-09-21 13:48 | CP.PCM.PN ---
Subjective - Date & Time of Evaluation Date of Evaluation: 09/21/18 Time of Evaluation: 10:20 - Subjective Subjective: Patient seen and examined. Denied any complaint. Objective - Vital Signs/Intake and Output Vital Signs (last 24 hours): Temp Pulse Resp BP Pulse Ox 98.6 F 67 20 135/65 95 09/21/18 08:06 09/21/18 13:09 09/21/18 08:06 09/21/18 13:09 09/21/18 08:06 Intake and Output: 09/21/18 09/21/18 06:59 18:59 Intake Total 400 Output Total 1600 Balance -1200 - Medications Medications: Current Medications Acetaminophen (Tylenol 650mg/20.3ml Solution Ud) 650 mg PO Q6 PRN PRN Reason: Temp IF PATIENT CANT TAKE TAB Acetaminophen (Tylenol 325mg Tab) 650 mg PO Q6 PRN PRN Reason: TEMP 100.4/> OR PAIN 4-10 Last Admin: 09/18/18 17:00 Dose: 650 mg Amlodipine Besylate (Norvasc) 10 mg PO DAILY [facility] Last Admin: 09/21/18 08:13 Dose: 10 mg Atorvastatin Calcium (Lipitor) 10 mg PO HS [facility] Last Admin: 09/20/18 21:30 Dose: 10 mg Bethanechol Chloride (Urecholine) 50 mg PO TID [facility] Last Admin: 09/21/18 12:44 Dose: 50 mg Carvedilol (Coreg) 25 mg PO Q12 [facility] Last Admin: 09/21/18 08:14 Dose: 25 mg Dextrose (Dextrose 50% Inj) 50 ml IVP .STAT PRN PRN Reason: Hypoglycemia protocol Enoxaparin Sodium (Lovenox) 40 mg SC DAILY [facility]; Protocol Last Admin: 09/21/18 08:12 Dose: 40 mg Hydralazine HCl (Apresoline) 20 mg PO Q8 [facility] Last Admin: 09/21/18 13:09 Dose: 20 mg Insulin Detemir (Levemir) 10 units SC HS [facility] Last Admin: 09/20/18 21:29 Dose: 10 units Insulin Human Lispro (Humalog) 0 units SC ACHS [facility]; Protocol Last Admin: 09/21/18 12:05 Dose: 1 unit Lacosamide (Vimpat) 100 mg PO Q12 [facility] Last Admin: 09/21/18 08:12 Dose: 100 mg Lactulose (Enulose) 20 gm PO Q12 PRN PRN Reason: Constipation Levothyroxine Sodium (Synthroid) 50 mcg PO DAILY@0630 [facility] Last Admin: 09/21/18 05:31 Dose: 50 mcg Metformin HCl (Glucophage) 850 mg PO BID [facility] Last Admin: 09/21/18 08:14 Dose: 850 mg Multivitamins/Vitamin C (Multi-Delyn Liquid) 15 ml PO DAILY [facility] Last Admin: 09/21/18 08:15 Dose: 15 ml Pantoprazole Sodium (Protonix Ec Tab) 20 mg PO DAILY [facility] Last Admin: 09/21/18 08:15 Dose: 20 mg Risperidone (Risperdal Tab) 2 mg PO Q12 [facility] Last Admin: 09/21/18 08:15 Dose: 2 mg Tamsulosin HCl (Flomax) 0.4 mg PO HS [facility] Last Admin: 09/20/18 21:28 Dose: 0.4 mg Valproate Sodium (Depakene Oral Soln) 500 mg PO Q6 [facility] Last Admin: 09/21/18 12:44 Dose: 500 mg - Labs Labs: 09/20/18 06:00 09/18/18 05:40 - Constitutional Appears: No Acute Distress - Head Exam Head Exam: ATRAUMATIC - Eye Exam Eye Exam: absent: Scleral icterus - ENT Exam ENT Exam: Mucous Membranes Moist - Respiratory Exam Respiratory Exam: absent: Rales, Rhonchi, Wheezes, Respiratory Distress - Cardiovascular Exam Cardiovascular Exam: REGULAR RHYTHM, +S1, +S2 - GI/Abdominal Exam GI & Abdominal Exam: Soft. absent: Tenderness - Rectal Exam Rectal Exam: Deferred - Neurological Exam Neurological Exam: Alert, Awake - Psychiatric Exam Psychiatric exam: Flat Affect - Skin Skin Exam: Dry, Intact Assessment and Plan - Assessment and Plan (Free Text) Assessment: 62 yo female with history of DM II, Schizophrenia and HTN initially admitted for sepsis and pneumonia was coded and was resuscitated. She was intubated and admitted in ICU where she was successfully extubated. She was transferred to Acute Rehab for further therapy. Patient also developed urinary retention and presently with indwelling olivera catheter and in the process of bladder training. 1. Physical Deconditioning, Gait Instability, Reduced Functional Capacity continue physical and occupational therapy 2. Urinary Retention Continue bladder training Dr. Dominguez was consulted and advised to keep olivera catheter for 6 wks continue Betanechol 3. Hypertension BP stable continue Amlodipine, Coreg and Hydralazine 4. DM2 accuchek ACHS with low Lispro coverage Levemir 10 Units SC HS 5. Localization-related (focal) (partial) symptomatic epilepsy continue Depakote and Vimpat 6.Hypothyrodism continue Levothyroxine 50 mcg daily 7. Schizophrenia continue Risperdal 2.0 mg PO BID 8. DVT prophylaxis Lovenox 40mg SC QD [facility]
--- NOTE | 2018-09-21 18:59 | CP.PCM.PN ---
Subjective - Date & Time of Evaluation Date of Evaluation: 09/21/18 Time of Evaluation: 18:58 - Subjective Subjective: Patient seen in the room NAD no cyanosis or jaundice no fever olivera is out today and voided >300cc with less then 150cc residual will check PVR again tomorrow Objective - Vital Signs/Intake and Output Vital Signs (last 24 hours): Temp Pulse Resp BP Pulse Ox 98.6 F 67 20 135/65 95 09/21/18 08:06 09/21/18 13:09 09/21/18 08:06 09/21/18 13:09 09/21/18 08:06 Intake and Output: 09/21/18 09/21/18 06:59 18:59 Intake Total 400 1320 Output Total 1600 1200 Balance -1200 120 - Medications Medications: Current Medications Acetaminophen (Tylenol 650mg/20.3ml Solution Ud) 650 mg PO Q6 PRN PRN Reason: Temp IF PATIENT CANT TAKE TAB Acetaminophen (Tylenol 325mg Tab) 650 mg PO Q6 PRN PRN Reason: TEMP 100.4/> OR PAIN 4-10 Last Admin: 09/21/18 15:21 Dose: 650 mg Amlodipine Besylate (Norvasc) 10 mg PO DAILY [facility] Last Admin: 09/21/18 08:13 Dose: 10 mg Atorvastatin Calcium (Lipitor) 10 mg PO HS [facility] Last Admin: 09/20/18 21:30 Dose: 10 mg Bethanechol Chloride (Urecholine) 50 mg PO TID [facility] Last Admin: 09/21/18 17:05 Dose: 50 mg Carvedilol (Coreg) 25 mg PO Q12 [facility] Last Admin: 09/21/18 08:14 Dose: 25 mg Dextrose (Dextrose 50% Inj) 50 ml IVP .STAT PRN PRN Reason: Hypoglycemia protocol Enoxaparin Sodium (Lovenox) 40 mg SC DAILY [facility]; Protocol Last Admin: 09/21/18 08:12 Dose: 40 mg Hydralazine HCl (Apresoline) 20 mg PO Q8 [facility] Last Admin: 09/21/18 13:09 Dose: 20 mg Insulin Detemir (Levemir) 10 units SC HS [facility] Last Admin: 09/20/18 21:29 Dose: 10 units Insulin Human Lispro (Humalog) [address] [facility]; Protocol Last Admin: 09/21/18 17:05 Dose: 1 unit Lacosamide (Vimpat) 100 mg PO Q12 [facility] Last Admin: 09/21/18 08:12 Dose: 100 mg Lactulose (Enulose) 20 gm PO Q12 PRN PRN Reason: Constipation Levothyroxine Sodium (Synthroid) 50 mcg PO DAILY@0630 [facility] Last Admin: 09/21/18 05:31 Dose: 50 mcg Metformin HCl (Glucophage) 850 mg PO BID [facility] Last Admin: 09/21/18 17:06 Dose: 850 mg Multivitamins/Vitamin C (Multi-Delyn Liquid) 15 ml PO DAILY [facility] Last Admin: 09/21/18 08:15 Dose: 15 ml Pantoprazole Sodium (Protonix Ec Tab) 20 mg PO DAILY [facility] Last Admin: 09/21/18 08:15 Dose: 20 mg Risperidone (Risperdal Tab) 2 mg PO Q12 [facility] Last Admin: 09/21/18 08:15 Dose: 2 mg Tamsulosin HCl (Flomax) 0.4 mg PO HS [facility] Last Admin: 09/20/18 21:28 Dose: 0.4 mg Valproate Sodium (Depakene Oral Soln) 500 mg PO Q6 [facility] Last Admin: 09/21/18 17:05 Dose: 500 mg - Labs Labs: 09/20/18 06:00 09/18/18 05:40
[2018-09-21] MEDS: Insulin Detemir 100 Units/ml Inj SC SCH (21:11)
[2018-09-22] MEDS: Valproic Acid 250 mg/5 ml UD Cup PO SCH ×3 (05:27→17:15)
[2018-09-22] MEDS: Levothyroxine 50 MCG TAB PO SCH (06:24)
[2018-09-22] MEDS: Insulin Lispro (humaLOG) 100 Units/ml Inj SC SCH ×4 (06:45→22:06)
[2018-09-22] MEDS: Lacosamide 50 MG Tab PO SCH ×2 (08:11→21:57)
[2018-09-22] MEDS: Multi Vitamins 15 mL UD Oral Solution PO SCH (08:11)
[2018-09-22] MEDS: Enoxaparin 40 mg Syringe SC SCH (08:13)
[2018-09-22] MEDS: Pantoprazole 20 mg EC Tab PO SCH (08:13)
[2018-09-22] MEDS: Bethanechol 50 MG TAB PO SCH ×3 (08:14→17:16)
--- NOTE | 2018-09-22 13:14 | PCM.PSYTMC ---
Acute Rehab Team Conference - - Vital Signs: Vital Signs (Last 8 Hours): Vital Signs 09/22/18 09/22/18 09/22/18 05:27 08:11 08:12 Temperature Pulse Rate 61 63 Respiratory Rate Blood Pressure 149/61 139/61 139/61 O2 Sat by Pulse Oximetry 09/22/18 09/22/18 09:00 10:00 Temperature 97.3 F L 97.3 F L Pulse Rate 63 63 Respiratory 18 18 Rate Blood Pressure 139/61 139/61 O2 Sat by Pulse 93 L Oximetry Pain: 0 - Precautions: Precautions: Fall Prevention - Medications/Other Issues: Comment: 2way olivera removed yesterday, voiding freely. Latest PVR: 322, Dr. Dominguez aware. - Consults: Comment: Dr. Dominguez, Dr. Tyson - Toileting: Toileting: Supervision - Bladder Management: Bladder Pattern: Normal, Retention Voiding Method: Toilet Bladder Management: Supervision Other Intervention:: 0 - Transfers: Transfers: Minimal Assistance - ADL's: ADL's: Minimal Assistance - Pain Management: Other Intervention:: Tylenol PRN - Patient/Family Teaching: Other Intervention:: Safety Precautions, Timed Voiding - Goals/Time Frame: Comment: Per multidisicplinary care plans and goals - Provider: Registered Nurse:: Beth Sin Physical Therapy - Ambulation Level of Assistance: Supervision Distance (ft.): 200 Assistive Devices: N/A - Stair Negotiation Stairs: Level of Assistance: Supervision Occupational Therapy - Arousal/Attention/Orientation Level of Consciousness: Awake, Alert, Forgetful Patient Orientation: Person, Place - ADL/IADL Self Feeding: Set-up Help Grooming: Set-up Help Bathing-Upper Ext: Supervision Bathing-Lower Ext: Supervision, Contact Guard Dressing-Upper Ext: Supervision Dressing-Lower Ext: Supervision, Contact Guard - Sitting Balance Static Sitting: Supervision Dynamic Sitting: Requires supervision - Transfers Wheelchair to Bed Transfers: Supervision Toilet Transfers: Supervision Tub Transfers: Supervision - Upper Extremity Status Right Upper Extremity Comment: decreased coordination Left Upper Extremity Comment: decreased coordination - Pain Pain (assessed during therapy session): 0 - Insight/Carryover Insight/Carryover: Fair - Patient/Family Education Comment: safety awareness, dme/ae education - Assessment/Plan Assessment: patient is a 62 yo female admitted to [facility] with main dx of acute respiratory failure with multiple medical complications . patient currently presents with impaired activity tolerance, impaired dynamic standing balance/unsteadiness on feet , impaired knowledge of adaptive/compensatory techniques and impaired cognition/carryover (baseline). these aforementioned defecits impact pt's ability to complete adls, transfers/mobility and self care safety and effectively. currently patient is completing ub adls with supervision, lb adls with supervision, feeding/grooming with set up , transfer s/mobility with supervision w/o ad. recommend supervision with bathing and iadls 2' poor cognition. Recommend skilled inpatient OT services 5-6x/week to maximize pts's functional independence. recommend d/c home post IP stay. - Goals Timeframe: 1 week Comment: goals mod I for transfers/moility, ub adls, lb adls - Provider Occupational Therapist:: Rosa Elena Hester License Number: [id number] Recreational Therapy - Participation Participation: Participates in Individual and/or Group Sessions - Attendance Attendance: 3-5 times per week - Activities Leisure Activities: Cards and Games - Socialization Level of Socialization: Initiates/interacts with caregivers but not with peer, Responds freely, but does not initiate - Diversional Time Diversional Time: television, music, likes dominoes, painting, bingo - Assessment Assessment/Plan: Pt is agreeable to participate in 1:1 and group recreation therapy sessions. Pt has participated in modified catherine card task and bingo task with peers. Pt requires min verbal cues at times for redirection to current situation or discussion 2' pt being tearful or laughing. Pt requires min verbal cues for direction following. Pt will continue to benefit from participating in recreation therapy sessions throughout stay on unit. Problems Currently Limiting Participation: weakness, decrease activity tolerance level, decrease direction following, hx of schizophrenia Goals and Time Frame: Pt will be encouraged to participate in 1:1 and group recreation therapy sessions 3-5x week to improve leisure awareness level, dir ection following, leisure awareness level, and overall mood state. - Provider Therapist: Chika Traylor Nutrition - Current Diet Current Diet/Supplement/Feedings: Regular diet - Appetite Percent Meal Consumed: 75-100% - Assessment/Goals/Time Frame Assessments/Goals/Time Frame: Pt at low nutritional risk. no goals. Follow-up due on 09/26/2018 - Provider Provider: Mizzi,Payal J Case Management - Psychosocial Assessment Support Systems: Jadiel Ahumada (son) - . Kym Ahumada (daughter) - Psychological Interventions/Needs: Patient has a dx of schizophrenia and is cooprative with medication. Discharge Concerns: Patient is retaining. Patient/Family Meeting: CM met with patient and rehab team. Intervention/Goal/Outcome: 1. Goal: Modified Independent 2. Plan: return to halfway with [facility] 3. provide education 4. DME needs 5. schedule follow ups 6. continued emotional support - Discharge Plan Discharge Plan: Home with services Home Services: [facility] Comment: [facility] agrees to provide services in a halfway. - Provider Provider: Bettina Herman License Number: [id number] Rehabilitation Plan - Treatment Plan Treatment Plan: Physical Therapy, Occupational Therapy, Dietary, Patient/Family Education - Discharge Plan Estimated Date of Discharge: 09/28/18 Discharge to: Home
--- NOTE | 2018-09-22 13:25 | CP.PCM.PN ---
Subjective - Date & Time of Evaluation Date of Evaluation: 09/22/18 Time of Evaluation: 13:24 - Subjective Subjective: Patient seen with daughter in the room doing well denies pain or SOB improved independence and should be able to be d/c'd to her prior care facility with supervision level of function. continue current care ELOS 09/28/18 Objective - Vital Signs/Intake and Output Vital Signs (last 24 hours): Temp Pulse Resp BP Pulse Ox 97.3 F L 63 18 139/61 93 L 09/22/18 10:00 09/22/18 10:00 09/22/18 10:00 09/22/18 10:00 09/22/18 10:00 Intake and Output: 09/22/18 09/22/18 06:59 18:59 Intake Total 600 Output Total 600 Balance 0 - Medications Medications: Current Medications Acetaminophen (Tylenol 650mg/20.3ml Solution Ud) 650 mg PO Q6 PRN PRN Reason: Temp IF PATIENT CANT TAKE TAB Acetaminophen (Tylenol 325mg Tab) 650 mg PO Q6 PRN PRN Reason: TEMP 100.4/> OR PAIN 4-10 Last Admin: 09/21/18 15:21 Dose: 650 mg Amlodipine Besylate (Norvasc) 10 mg PO DAILY [facility] Last Admin: 09/22/18 08:12 Dose: 10 mg Atorvastatin Calcium (Lipitor) 10 mg PO HS [facility] Last Admin: 09/21/18 21:07 Dose: 10 mg Bethanechol Chloride (Urecholine) 50 mg PO TID [facility] Last Admin: 09/22/18 12:39 Dose: 50 mg Carvedilol (Coreg) 25 mg PO Q12 [facility] Last Admin: 09/22/18 08:11 Dose: 25 mg Dextrose (Dextrose 50% Inj) 50 ml IVP .STAT PRN PRN Reason: Hypoglycemia protocol Enoxaparin Sodium (Lovenox) 40 mg SC DAILY [facility]; Protocol Last Admin: 09/22/18 08:13 Dose: 40 mg Hydralazine HCl (Apresoline) 20 mg PO Q8 [facility] Last Admin: 09/22/18 05:27 Dose: 20 mg Insulin Detemir (Levemir) 10 units SC HS [facility] Last Admin: 09/21/18 21:11 Dose: 10 units Insulin Human Lispro (Humalog) 0 units SC [facility]; Protocol Last Admin: 09/22/18 12:30 Dose: 1 unit Lacosamide (Vimpat) 100 mg PO Q12 [facility] Last Admin: 09/22/18 08:11 Dose: 100 mg Lactulose (Enulose) 20 gm PO Q12 PRN PRN Reason: Constipation Levothyroxine Sodium (Synthroid) 50 mcg PO DAILY@0630 [facility] Last Admin: 09/22/18 06:24 Dose: 50 mcg Metformin HCl (Glucophage) 850 mg PO BID [facility] Last Admin: 09/22/18 08:12 Dose: 850 mg Multivitamins/Vitamin C (Multi-Delyn Liquid) 15 ml PO DAILY [facility] Last Admin: 09/22/18 08:11 Dose: 15 ml Pantoprazole Sodium (Protonix Ec Tab) 20 mg PO DAILY [facility] Last Admin: 09/22/18 08:13 Dose: 20 mg Risperidone (Risperdal Tab) 2 mg PO Q12 [facility] Last Admin: 09/22/18 08:13 Dose: 2 mg Tamsulosin HCl (Flomax) 0.4 mg PO HS [facility] Last Admin: 09/21/18 21:07 Dose: 0.4 mg Valproate Sodium (Depakene Oral Soln) 500 mg PO Q6 [facility] Last Admin: 09/22/18 12:38 Dose: 500 mg - Labs Labs: 09/20/18 06:00 09/18/18 05:40
[2018-09-22 20:14] VITALS: RESP 20
[2018-09-22] MEDS: Insulin Detemir 100 Units/ml Inj SC SCH (22:07)
[2018-09-23] MEDS: Valproic Acid 250 mg/5 ml UD Cup PO SCH ×4 (00:14→17:02)
[2018-09-23] MEDS: Levothyroxine 50 MCG TAB PO SCH (05:53)
[2018-09-23] MEDS: Insulin Lispro (humaLOG) 100 Units/ml Inj SC SCH ×4 (07:23→22:41)
[2018-09-23] MEDS: Lacosamide 50 MG Tab PO SCH ×2 (08:23→22:37)
[2018-09-23] MEDS: Enoxaparin 40 mg Syringe SC SCH (08:24)
[2018-09-23] MEDS: Bethanechol 50 MG TAB PO SCH ×3 (08:24→16:44)
[2018-09-23] MEDS: Multi Vitamins 15 mL UD Oral Solution PO SCH (08:26)
[2018-09-23] MEDS: Pantoprazole 20 mg EC Tab PO SCH (08:26)
--- NOTE | 2018-09-23 10:00 | CP.PCM.PN ---
Subjective - Date & Time of Evaluation Date of Evaluation: 09/23/18 Time of Evaluation: 11:30 - Subjective Subjective: Patient seen and examined . Sitting in chair in NAD.Hemodynamically stable, afebrile. No acute issues overnight. Participating with PT . Objective - Vital Signs/Intake and Output Vital Signs (last 24 hours): Temp Pulse Resp BP Pulse Ox 97.0 F L 62 20 156/75 H 97 09/23/18 07:44 09/23/18 08:25 09/23/18 07:44 09/23/18 08:26 09/23/18 07:44 Intake and Output: 09/23/18 09/23/18 06:59 18:59 Intake Total 420 Balance 420 - Medications Medications: Current Medications Acetaminophen (Tylenol 650mg/20.3ml Solution Ud) 650 mg PO Q6 PRN PRN Reason: Temp IF PATIENT CANT TAKE TAB Acetaminophen (Tylenol 325mg Tab) 650 mg PO Q6 PRN PRN Reason: TEMP 100.4/> OR PAIN 4-10 Last Admin: 09/21/18 15:21 Dose: 650 mg Amlodipine Besylate (Norvasc) 10 mg PO DAILY [facility] Last Admin: 09/23/18 08:26 Dose: 10 mg Atorvastatin Calcium (Lipitor) 10 mg PO HS [facility] Last Admin: 09/22/18 21:58 Dose: 10 mg Bethanechol Chloride (Urecholine) 50 mg PO TID [facility] Last Admin: 09/23/18 08:24 Dose: 50 mg Carvedilol (Coreg) 25 mg PO Q12 [facility] Last Admin: 09/23/18 08:25 Dose: 25 mg Dextrose (Dextrose 50% Inj) 50 ml IVP .STAT PRN PRN Reason: Hypoglycemia protocol Enoxaparin Sodium (Lovenox) 40 mg SC DAILY [facility]; Protocol Last Admin: 09/23/18 08:24 Dose: 40 mg Hydralazine HCl (Apresoline) 20 mg PO Q8 [facility] Last Admin: 09/23/18 05:54 Dose: 20 mg Insulin Detemir (Levemir) 10 units SC HS [facility] Last Admin: 09/22/18 22:07 Dose: 10 units Insulin Human Lispro (Humalog) 0 units SC [facility]; Protocol Last Admin: 09/23/18 07:23 Dose: Not Given Lacosamide (Vimpat) 100 mg PO Q12 [facility] Last Admin: 09/23/18 08:23 Dose: 100 mg Lactulose (Enulose) 20 gm PO Q12 PRN PRN Reason: Constipation Levothyroxine Sodium (Synthroid) 50 mcg PO DAILY@0630 [facility] Last Admin: 09/23/18 05:53 Dose: 50 mcg Metformin HCl (Glucophage) 850 mg PO BID [facility] Last Admin: 09/23/18 08:24 Dose: 850 mg Multivitamins/Vitamin C (Multi-Delyn Liquid) 15 ml PO DAILY [facility] Last Admin: 09/23/18 08:26 Dose: 15 ml Pantoprazole Sodium (Protonix Ec Tab) 20 mg PO DAILY [facility] Last Admin: 09/23/18 08:26 Dose: 20 mg Risperidone (Risperdal Tab) 2 mg PO Q12 [facility] Last Admin: 09/23/18 08:26 Dose: 2 mg Tamsulosin HCl (Flomax) 0.4 mg PO HS [facility] Last Admin: 09/22/18 21:59 Dose: 0.4 mg Valproate Sodium (Depakene Oral Soln) 500 mg PO Q6 [facility] Last Admin: 09/23/18 05:56 Dose: 500 mg - Labs Labs: 09/20/18 06:00 09/18/18 05:40 - Constitutional Appears: Non-toxic, No Acute Distress - Head Exam Head Exam: ATRAUMATIC, NORMAL INSPECTION, NORMOCEPHALIC - Eye Exam Eye Exam: EOMI, PERRL Pupil Exam: NORMAL ACCOMODATION - ENT Exam ENT Exam: Mucous Membranes Moist, Normal Exam - Neck Exam Neck Exam: Full ROM, Normal Inspection - Respiratory Exam Respiratory Exam: Clear to Ausculation Bilateral, NORMAL BREATHING PATTERN. absent: Rales, Rhonchi, Wheezes, Respiratory Distress - Cardiovascular Exam Cardiovascular Exam: REGULAR RHYTHM, RRR, +S1, +S2. absent: JVD - GI/Abdominal Exam GI & Abdominal Exam: Soft, Normal Bowel Sounds. absent: Distended, Guarding, Tenderness, Rebound - Rectal Exam Rectal Exam: Deferred - Extremities Exam Extremities Exam: Normal Capillary Refill, Normal Inspection - Back Exam Back Exam: NORMAL INSPECTION - Neurological Exam Neurological Exam: Alert, Awake, CN II-XII Intact - Psychiatric Exam Psychiatric exam: Normal Affect - Skin Skin Exam: Dry, Warm Assessment and Plan - Assessment and Plan (Free Text) Assessment: 62 yo female with history of DM II, Schizophrenia and HTN initially admitted for sepsis and pneumonia was coded and was resuscitated. She was intubated and admitted in ICU where she was successfully extubated. She was transferred to Acute Rehab for further therapy. Patient also developed urinary retention and presently with indwelling olivera catheter and in the process of bladder training. 1. Physical Deconditioning, Gait Instability, Reduced Functional Capacity continue physical and occupational therapy 2. Urinary Retention Continue bladder training Dr. Dominguez was consulted and advised to keep olivera catheter for 6 wks continue Betanechol 3. Hypertension BP stable continue Amlodipine, Coreg and Hydralazine 4. DM2 accuchek ACHS with low Lispro coverage Levemir 10 Units SC HS 5. Localization-related (focal) (partial) symptomatic epilepsy continue Depakote and Vimpat 6.Hypothyrodism continue Levothyroxine 50 mcg daily 7. Schizophrenia continue Risperdal 2.0 mg PO BID 8. DVT prophylaxis Lovenox 40mg SC QD [facility]
[2018-09-23 11:12] LABS: MEAN CELL VOLUME 85.6 fl (81.0-99.0); MEAN CORPUSCULAR HEMOGLOBIN 28.3 pg (27.0-31.0); MEAN CORPUSCULAR HGB CONC 33.1 g/dL (33.0-37.0); RBC 3.18 Mil/uL (3.80-5.20); RED CELL DISTRIBUTION WIDTH 19.7 % (11.5-14.5)
[2018-09-23 11:20] LABS: BLOOD UREA NITROGEN 11 mg/dl (7-17); CALCIUM 9.6 mg/dL (8.4-10.2); GFR NON-AFRICAN AMERICAN > 60
--- NOTE | 2018-09-23 18:37 | CP.PCM.PN ---
Subjective - Date & Time of Evaluation Date of Evaluation: 09/23/18 Time of Evaluation: 18:36 - Subjective Subjective: Patient seen in the room in good spirits no sob/cp ambulating 300' w/o AD continue current care Objective - Vital Signs/Intake and Output Vital Signs (last 24 hours): Temp Pulse Resp BP Pulse Ox 97.0 F L 62 20 128/74 97 09/23/18 07:44 09/23/18 08:25 09/23/18 07:44 09/23/18 13:11 09/23/18 07:44 Intake and Output: 09/23/18 09/23/18 06:59 18:59 Intake Total 420 1220 Output Total 930 Balance 420 290 - Medications Medications: Current Medications Acetaminophen (Tylenol 650mg/20.3ml Solution Ud) 650 mg PO Q6 PRN PRN Reason: Temp IF PATIENT CANT TAKE TAB Acetaminophen (Tylenol 325mg Tab) 650 mg PO Q6 PRN PRN Reason: TEMP 100.4/> OR PAIN 4-10 Last Admin: 09/21/18 15:21 Dose: 650 mg Amlodipine Besylate (Norvasc) 10 mg PO DAILY [facility] Last Admin: 09/23/18 08:26 Dose: 10 mg Atorvastatin Calcium (Lipitor) 10 mg PO HS [facility] Last Admin: 09/22/18 21:58 Dose: 10 mg Bethanechol Chloride (Urecholine) 50 mg PO TID [facility] Last Admin: 09/23/18 16:44 Dose: 50 mg Carvedilol (Coreg) 25 mg PO Q12 [facility] Last Admin: 09/23/18 08:25 Dose: 25 mg Dextrose (Dextrose 50% Inj) 50 ml IVP .STAT PRN PRN Reason: Hypoglycemia protocol Enoxaparin Sodium (Lovenox) 40 mg SC DAILY [facility]; Protocol Last Admin: 09/23/18 08:24 Dose: 40 mg Hydralazine HCl (Apresoline) 20 mg PO Q8 [facility] Last Admin: 09/23/18 13:11 Dose: 20 mg Insulin Detemir (Levemir) 10 units SC HS [facility] Last Admin: 09/22/18 22:07 Dose: 10 units Insulin Human Lispro (Humalog) 0 units SC [facility]; Protocol Last Admin: 09/23/18 17:02 Dose: Not Given Lacosamide (Vimpat) 100 mg PO Q12 [facility] Last Admin: 09/23/18 08:23 Dose: 100 mg Lactulose (Enulose) 20 gm PO Q12 PRN PRN Reason: Constipation Levothyroxine Sodium (Synthroid) 50 mcg PO DAILY@0630 [facility] Last Admin: 09/23/18 05:53 Dose: 50 mcg Metformin HCl (Glucophage) 850 mg PO BID [facility] Last Admin: 09/23/18 16:44 Dose: 850 mg Multivitamins/Vitamin C (Multi-Delyn Liquid) 15 ml PO DAILY [facility] Last Admin: 09/23/18 08:26 Dose: 15 ml Pantoprazole Sodium (Protonix Ec Tab) 20 mg PO DAILY [facility] Last Admin: 09/23/18 08:26 Dose: 20 mg Risperidone (Risperdal Tab) 2 mg PO Q12 [facility] Last Admin: 09/23/18 08:26 Dose: 2 mg Tamsulosin HCl (Flomax) 0.4 mg PO HS [facility] Last Admin: 09/22/18 21:59 Dose: 0.4 mg Valproate Sodium (Depakene Oral Soln) 500 mg PO Q6 [facility] Last Admin: 09/23/18 17:02 Dose: 500 mg - Labs Labs: 09/23/18 11:02 09/23/18 11:02
[2018-09-23] MEDS: Insulin Detemir 100 Units/ml Inj SC SCH (22:40)
[2018-09-24] MEDS: Valproic Acid 250 mg/5 ml UD Cup PO SCH ×4 (05:29→17:04)
[2018-09-24] MEDS: Levothyroxine 50 MCG TAB PO SCH (05:29)
[2018-09-24] MEDS: Insulin Lispro (humaLOG) 100 Units/ml Inj SC SCH ×4 (07:13→21:45)
[2018-09-24] MEDS: Lacosamide 50 MG Tab PO SCH ×2 (09:09→21:58)
[2018-09-24] MEDS: Bethanechol 50 MG TAB PO SCH ×3 (09:09→17:04)
[2018-09-24] MEDS: Enoxaparin 40 mg Syringe SC SCH (09:10)
[2018-09-24] MEDS: Multi Vitamins 15 mL UD Oral Solution PO SCH (09:10)
[2018-09-24] MEDS: Pantoprazole 20 mg EC Tab PO SCH (09:11)
[2018-09-24] MEDS: Insulin Detemir 100 Units/ml Inj SC SCH (21:54)
[2018-09-25] MEDS: Valproic Acid 250 mg/5 ml UD Cup PO SCH ×5 (01:16→23:54)
[2018-09-25] MEDS: Levothyroxine 50 MCG TAB PO SCH (06:12)
[2018-09-25] MEDS: Insulin Lispro (humaLOG) 100 Units/ml Inj SC SCH ×4 (07:30→21:17)
[2018-09-25] MEDS: Pantoprazole 20 mg EC Tab PO SCH (08:43)
[2018-09-25] MEDS: Enoxaparin 40 mg Syringe SC SCH (08:44)
[2018-09-25] MEDS: Multi Vitamins 15 mL UD Oral Solution PO SCH (08:49)
[2018-09-25] MEDS: Bethanechol 50 MG TAB PO SCH ×3 (08:56→17:08)
[2018-09-25] MEDS: Lacosamide 50 MG Tab PO SCH ×2 (09:00→21:36)
--- NOTE | 2018-09-25 16:39 | CP.PCM.PN ---
Subjective - Date & Time of Evaluation Date of Evaluation: 09/25/18 Time of Evaluation: 16:38 - Subjective Subjective: Patient seen in [facility], doing well in good spirits denies sob/cp or fever working hard in therapy very social continue current care Objective - Vital Signs/Intake and Output Vital Signs (last 24 hours): Temp Pulse Resp BP Pulse Ox 98 F 65 20 120/80 98 09/25/18 09:55 09/25/18 13:52 09/25/18 09:55 09/25/18 13:52 09/25/18 08:40 Intake and Output: 09/25/18 09/25/18 06:59 18:59 Intake Total 300 Output Total 800 Balance -500 - Medications Medications: Current Medications Acetaminophen (Tylenol 650mg/20.3ml Solution Ud) 650 mg PO Q6 PRN PRN Reason: Temp IF PATIENT CANT TAKE TAB Acetaminophen (Tylenol 325mg Tab) 650 mg PO Q6 PRN PRN Reason: TEMP 100.4/> OR PAIN 4-10 Last Admin: 09/25/18 08:55 Dose: 650 mg Amlodipine Besylate (Norvasc) 10 mg PO DAILY [facility] Last Admin: 09/25/18 08:48 Dose: 10 mg Atorvastatin Calcium (Lipitor) 10 mg PO HS [facility] Last Admin: 09/24/18 21:53 Dose: 10 mg Bethanechol Chloride (Urecholine) 50 mg PO TID [facility] Last Admin: 09/25/18 13:51 Dose: 50 mg Carvedilol (Coreg) 25 mg PO Q12 [facility] Last Admin: 09/25/18 08:48 Dose: 25 mg Dextrose (Dextrose 50% Inj) 50 ml IVP .STAT PRN PRN Reason: Hypoglycemia protocol Enoxaparin Sodium (Lovenox) 40 mg SC DAILY [facility]; Protocol Last Admin: 09/25/18 08:44 Dose: 40 mg Hydralazine HCl (Apresoline) 20 mg PO Q8 [facility] Last Admin: 09/25/18 13:52 Dose: 20 mg Insulin Detemir (Levemir) 10 units SC HS [facility] Last Admin: 09/24/18 21:54 Dose: 10 units Insulin Human Lispro (Humalog) [address] [facility]; Protocol Last Admin: 09/25/18 11:30 Dose: Not Given Lacosamide (Vimpat) 100 mg PO Q12 [facility] Last Admin: 09/25/18 09:00 Dose: 100 mg Lactulose (Enulose) 20 gm PO Q12 PRN PRN Reason: Constipation Levothyroxine Sodium (Synthroid) 50 mcg PO DAILY@0630 [facility] Last Admin: 09/25/18 06:12 Dose: 50 mcg Metformin HCl (Glucophage) 850 mg PO BID [facility] Last Admin: 09/25/18 08:43 Dose: 850 mg Multivitamins/Vitamin C (Multi-Delyn Liquid) 15 ml PO DAILY [facility] Last Admin: 09/25/18 08:49 Dose: 15 ml Pantoprazole Sodium (Protonix Ec Tab) 20 mg PO DAILY [facility] Last Admin: 09/25/18 08:43 Dose: 20 mg Risperidone (Risperdal Tab) 2 mg PO Q12 [facility] Last Admin: 09/25/18 08:43 Dose: 2 mg Tamsulosin HCl (Flomax) 0.4 mg PO HS [facility] Last Admin: 09/24/18 21:53 Dose: 0.4 mg Valproate Sodium (Depakene Oral Soln) 500 mg PO Q6 [facility] Last Admin: 09/25/18 12:00 Dose: 500 mg - Labs Labs: 09/23/18 11:02 09/23/18 11:02
--- NOTE | 2018-09-25 19:35 | CP.PCM.PN ---
Subjective - Date & Time of Evaluation Date of Evaluation: 09/25/18 Time of Evaluation: 11:40 - Subjective Subjective: Patient seen and examined. Apppeared inappropriately happy. Objective - Vital Signs/Intake and Output Vital Signs (last 24 hours): Temp Pulse Resp BP Pulse Ox 98 F 65 20 120/80 98 09/25/18 09:55 09/25/18 13:52 09/25/18 09:55 09/25/18 13:52 09/25/18 08:40 Intake and Output: 09/25/18 09/26/18 18:59 06:59 Intake Total 600 Output Total 800 Balance -200 - Medications Medications: Current Medications Acetaminophen (Tylenol 650mg/20.3ml Solution Ud) 650 mg PO Q6 PRN PRN Reason: Temp IF PATIENT CANT TAKE TAB Acetaminophen (Tylenol 325mg Tab) 650 mg PO Q6 PRN PRN Reason: TEMP 100.4/> OR PAIN 4-10 Last Admin: 09/25/18 08:55 Dose: 650 mg Amlodipine Besylate (Norvasc) 10 mg PO DAILY [facility] Last Admin: 09/25/18 08:48 Dose: 10 mg Atorvastatin Calcium (Lipitor) 10 mg PO HS [facility] Last Admin: 09/24/18 21:53 Dose: 10 mg Bethanechol Chloride (Urecholine) 50 mg PO TID [facility] Last Admin: 09/25/18 17:08 Dose: 50 mg Carvedilol (Coreg) 25 mg PO Q12 [facility] Last Admin: 09/25/18 08:48 Dose: 25 mg Dextrose (Dextrose 50% Inj) 50 ml IVP .STAT PRN PRN Reason: Hypoglycemia protocol Enoxaparin Sodium (Lovenox) 40 mg SC DAILY [facility]; Protocol Last Admin: 09/25/18 08:44 Dose: 40 mg Hydralazine HCl (Apresoline) 20 mg PO Q8 [facility] Last Admin: 09/25/18 13:52 Dose: 20 mg Insulin Detemir (Levemir) 10 units SC HS [facility] Last Admin: 09/24/18 21:54 Dose: 10 units Insulin Human Lispro (Humalog) 0 units SC ACHS [facility]; Protocol Last Admin: 09/25/18 17:08 Dose: Not Given Lacosamide (Vimpat) 100 mg PO Q12 [facility] Last Admin: 09/25/18 09:00 Dose: 100 mg Lactulose (Enulose) 20 gm PO Q12 PRN PRN Reason: Constipation Levothyroxine Sodium (Synthroid) 50 mcg PO DAILY@0630 [facility] Last Admin: 09/25/18 06:12 Dose: 50 mcg Metformin HCl (Glucophage) 850 mg PO BID [facility] Last Admin: 09/25/18 17:08 Dose: 850 mg Multivitamins/Vitamin C (Multi-Delyn Liquid) 15 ml PO DAILY [facility] Last Admin: 09/25/18 08:49 Dose: 15 ml Pantoprazole Sodium (Protonix Ec Tab) 20 mg PO DAILY [facility] Last Admin: 09/25/18 08:43 Dose: 20 mg Risperidone (Risperdal Tab) 2 mg PO Q12 [facility] Last Admin: 09/25/18 08:43 Dose: 2 mg Tamsulosin HCl (Flomax) 0.4 mg PO HS [facility] Last Admin: 09/24/18 21:53 Dose: 0.4 mg Valproate Sodium (Depakene Oral Soln) 500 mg PO Q6 [facility] Last Admin: 09/25/18 17:08 Dose: 500 mg - Labs Labs: 09/23/18 11:02 09/23/18 11:02 - Constitutional Appears: No Acute Distress - Head Exam Head Exam: ATRAUMATIC - Eye Exam Eye Exam: absent: Scleral icterus - ENT Exam ENT Exam: Mucous Membranes Moist - Neck Exam Neck Exam: absent: Meningismus - Respiratory Exam Respiratory Exam: absent: Rales, Rhonchi, Wheezes, Respiratory Distress - Cardiovascular Exam Cardiovascular Exam: REGULAR RHYTHM, +S1, +S2 - GI/Abdominal Exam GI & Abdominal Exam: Soft. absent: Tenderness - Rectal Exam Rectal Exam: Deferred - Neurological Exam Neurological Exam: Alert, Oriented x3 - Psychiatric Exam Psychiatric exam: Normal Affect - Skin Skin Exam: Dry, Intact Assessment and Plan - Assessment and Plan (Free Text) Assessment: 62 yo female with history of DM II, Schizophrenia and HTN initially admitted for sepsis and pneumonia was coded and was resuscitated. She was intubated and admitted in ICU where she was successfully extubated. She was transferred to Acute Rehab for further therapy. Patient also developed urinary retention and presently with indwelling olivera catheter and in the process of bladder training. 1. Physical Deconditioning, Gait Instability, Reduced Functional Capacity continue PT/OT 2. Urinary Retention Continue bladder training Dr. Dominguez was consulted and advised to keep olivera catheter for 6 wks continue Betanechol 3. Hypertension BP stable continue Amlodipine, Coreg and Hydralazine 4. DM2 accuchek ACHS with low Lispro coverage Levemir 10 Units SC HS 5. Localization-related (focal) (partial) symptomatic epilepsy continue Depakote and Vimpat 6.Hypothyrodism continue Levothyroxine 50 mcg daily 7. Schizophrenia continue Risperdal 2.0 mg PO BID 8. DVT prophylaxis Lovenox 40mg SC QD [facility]
[2018-09-25] MEDS: Insulin Detemir 100 Units/ml Inj SC SCH (21:26)
[2018-09-26] MEDS: Valproic Acid 250 mg/5 ml UD Cup PO SCH ×4 (05:54→23:00)
[2018-09-26] MEDS: Levothyroxine 50 MCG TAB PO SCH (05:55)
[2018-09-26 07:04] LABS: HEMOGLOBIN 9.3 g/dL (12.0-16.0); MEAN CELL VOLUME 84.8 fl (81.0-99.0); MEAN CORPUSCULAR HEMOGLOBIN 28.6 pg (27.0-31.0); MEAN CORPUSCULAR HGB CONC 33.7 g/dL (33.0-37.0); RBC 3.26 Mil/uL (3.80-5.20); RED CELL DISTRIBUTION WIDTH 19.5 % (11.5-14.5); WHITE BLOOD COUNT 5.7 K/uL (4.8-10.8)
[2018-09-26 07:29] LABS: BLOOD UREA NITROGEN 9 mg/dl (7-17); CALCIUM 9.2 mg/dL (8.4-10.2); GFR NON-AFRICAN AMERICAN > 60
[2018-09-26] MEDS: Insulin Lispro (humaLOG) 100 Units/ml Inj SC SCH ×4 (07:30→21:04)
[2018-09-26] MEDS: Enoxaparin 40 mg Syringe SC SCH (08:45)
[2018-09-26] MEDS: Pantoprazole 20 mg EC Tab PO SCH (08:45)
[2018-09-26] MEDS: Multi Vitamins 15 mL UD Oral Solution PO SCH (08:47)
[2018-09-26] MEDS: Bethanechol 50 MG TAB PO SCH ×3 (08:49→16:49)
[2018-09-26] MEDS: Lacosamide 50 MG Tab PO SCH ×2 (08:56→20:56)
--- NOTE | 2018-09-26 12:56 | CP.PCM.PN ---
Subjective - Date & Time of Evaluation Date of Evaluation: 09/26/18 Time of Evaluation: 08:00 - Subjective Subjective: no acute complaints at present Objective - Vital Signs/Intake and Output Vital Signs (last 24 hours): Temp Pulse Resp BP Pulse Ox 97.6 F 82 20 130/80 99 09/25/18 20:00 09/26/18 08:48 09/25/18 20:00 09/26/18 08:48 09/25/18 20:00 Intake and Output: 09/26/18 09/26/18 06:59 18:59 Intake Total 350 Output Total 1350 Balance -1000 - Medications Medications: Current Medications Acetaminophen (Tylenol 650mg/20.3ml Solution Ud) 650 mg PO Q6 PRN PRN Reason: Temp IF PATIENT CANT TAKE TAB Acetaminophen (Tylenol 325mg Tab) 650 mg PO Q6 PRN PRN Reason: TEMP 100.4/> OR PAIN 4-10 Last Admin: 09/25/18 19:54 Dose: 650 mg Amlodipine Besylate (Norvasc) 10 mg PO DAILY [facility] Last Admin: 09/25/18 08:48 Dose: 10 mg Atorvastatin Calcium (Lipitor) 10 mg PO HS [facility] Last Admin: 09/25/18 21:09 Dose: 10 mg Bethanechol Chloride (Urecholine) 50 mg PO TID [facility] Last Admin: 09/26/18 08:49 Dose: 50 mg Carvedilol (Coreg) 25 mg PO Q12 [facility] Last Admin: 09/26/18 08:48 Dose: 25 mg Dextrose (Dextrose 50% Inj) 50 ml IVP .STAT PRN PRN Reason: Hypoglycemia protocol Enoxaparin Sodium (Lovenox) 40 mg SC DAILY [facility]; Protocol Last Admin: 09/26/18 08:45 Dose: 40 mg Hydralazine HCl (Apresoline) 20 mg PO Q8 [facility] Last Admin: 09/26/18 05:54 Dose: 20 mg Insulin Detemir (Levemir) 10 units SC HS [facility] Last Admin: 09/25/18 21:26 Dose: 10 units Insulin Human Lispro (Humalog) 0 units SC [facility]; Protocol Last Admin: 09/26/18 07:30 Dose: 1 unit Lacosamide (Vimpat) 100 mg PO Q12 [facility] Last Admin: 09/26/18 08:56 Dose: 100 mg Lactulose (Enulose) 20 gm PO Q12 PRN PRN Reason: Constipation Levothyroxine Sodium (Synthroid) 50 mcg PO DAILY@0630 [facility] Last Admin: 09/26/18 05:55 Dose: 50 mcg Metformin HCl (Glucophage) 850 mg PO BID [facility] Last Admin: 09/26/18 08:45 Dose: 850 mg Multivitamins/Vitamin C (Multi-Delyn Liquid) 15 ml PO DAILY [facility] Last Admin: 09/26/18 08:47 Dose: 15 ml Pantoprazole Sodium (Protonix Ec Tab) 20 mg PO DAILY [facility] Last Admin: 09/26/18 08:45 Dose: 20 mg Risperidone (Risperdal Tab) 2 mg PO Q12 [facility] Last Admin: 09/26/18 08:44 Dose: 2 mg Tamsulosin HCl (Flomax) 0.4 mg PO HS [facility] Last Admin: 09/25/18 21:09 Dose: 0.4 mg Valproate Sodium (Depakene Oral Soln) 500 mg PO Q6 [facility] Last Admin: 09/26/18 05:54 Dose: 500 mg - Labs Labs: 09/26/18 05:35 09/26/18 05:35 - Constitutional Appears: Well - Head Exam Head Exam: ATRAUMATIC, NORMAL INSPECTION, NORMOCEPHALIC - Eye Exam Eye Exam: EOMI, Normal appearance Pupil Exam: NORMAL ACCOMODATION, PERRL - ENT Exam ENT Exam: Mucous Membranes Moist - Neck Exam Neck Exam: Full ROM - Respiratory Exam Respiratory Exam: Clear to Ausculation Bilateral, NORMAL BREATHING PATTERN - Cardiovascular Exam Cardiovascular Exam: REGULAR RHYTHM - GI/Abdominal Exam GI & Abdominal Exam: Normal Bowel Sounds Assessment and Plan (1) Pneumonia Status: Acute (2) Toxic metabolic encephalopathy Status: Acute (3) Localization-related (focal) (partial) symptomatic epilepsy and epileptic syndromes with complex partial seizures, intractable, with status epilepticus Status: Resolved (4) Severe sepsis Status: Resolved - Assessment and Plan (Free Text) Assessment: deconditioning, generalized weakness covering for Dr Tyson, plan to continue therapy at present.
[2018-09-26] MEDS: Insulin Detemir 100 Units/ml Inj SC SCH (21:03)
[2018-09-27] MEDS: Valproic Acid 250 mg/5 ml UD Cup PO SCH ×4 (05:30→23:02)
[2018-09-27] MEDS: Levothyroxine 50 MCG TAB PO SCH (05:31)
[2018-09-27] MEDS: Insulin Lispro (humaLOG) 100 Units/ml Inj SC SCH ×4 (06:42→21:23)
[2018-09-27] MEDS: Multi Vitamins 15 mL UD Oral Solution PO SCH (08:57)
[2018-09-27] MEDS: Pantoprazole 20 mg EC Tab PO SCH (08:57)
[2018-09-27] MEDS: Lacosamide 50 MG Tab PO SCH ×2 (08:58→21:20)
[2018-09-27] MEDS: Bethanechol 50 MG TAB PO SCH ×3 (08:58→17:01)
[2018-09-27] MEDS: Enoxaparin 40 mg Syringe SC SCH (09:03)
[2018-09-27 11:10] VITALS: O2SAT 95
[2018-09-27] MEDS: Insulin Detemir 100 Units/ml Inj SC SCH (21:21)
[2018-09-28] MEDS: Valproic Acid 250 mg/5 ml UD Cup PO SCH ×2 (05:25→12:32)
[2018-09-28] MEDS: Levothyroxine 50 MCG TAB PO SCH (05:30)
[2018-09-28] MEDS: Insulin Lispro (humaLOG) 100 Units/ml Inj SC SCH ×2 (07:23→12:00)
[2018-09-28] MEDS: Pantoprazole 20 mg EC Tab PO SCH (08:38)
[2018-09-28] MEDS: Enoxaparin 40 mg Syringe SC SCH (08:39)
[2018-09-28] MEDS: Bethanechol 50 MG TAB PO SCH ×2 (08:41→12:32)
[2018-09-28] MEDS: Multi Vitamins 15 mL UD Oral Solution PO SCH (08:41)
[2018-09-28] MEDS: Lacosamide 50 MG Tab PO SCH (08:43)
[2018-09-28 09:32] VITALS: PULSE 76; TEMP 98.2
--- NOTE | 2018-09-28 09:34 | CP.PCM.PN ---
Subjective - Date & Time of Evaluation Date of Evaluation: 09/28/18 Time of Evaluation: 09:33 - Subjective Subjective: Patient seen in the room doing well NAD no sob/cp she is set for d/c home today no need to continue DVT prophylaxis will continue with PT on discharge Objective - Vital Signs/Intake and Output Vital Signs (last 24 hours): Temp Pulse Resp BP Pulse Ox 98.2 F 76 20 142/71 95 09/28/18 09:31 09/28/18 09:31 09/28/18 09:31 09/28/18 09:31 09/28/18 09:31 Intake and Output: 09/28/18 09/28/18 06:59 18:59 Intake Total 550 Balance 550 - Medications Medications: Current Medications Acetaminophen (Tylenol 650mg/20.3ml Solution Ud) 650 mg PO Q6 PRN PRN Reason: Temp IF PATIENT CANT TAKE TAB Acetaminophen (Tylenol 325mg Tab) 650 mg PO Q6 PRN PRN Reason: TEMP 100.4/> OR PAIN 4-10 Last Admin: 09/25/18 19:54 Dose: 650 mg Amlodipine Besylate (Norvasc) 10 mg PO DAILY [facility] Last Admin: 09/28/18 08:40 Dose: 10 mg Atorvastatin Calcium (Lipitor) 10 mg PO HS [facility] Last Admin: 09/27/18 21:20 Dose: 10 mg Bethanechol Chloride (Urecholine) 50 mg PO TID [facility] Last Admin: 09/28/18 08:41 Dose: 50 mg Carvedilol (Coreg) 25 mg PO Q12 [facility] Last Admin: 09/28/18 08:40 Dose: 25 mg Dextrose (Dextrose 50% Inj) 50 ml IVP .STAT PRN PRN Reason: Hypoglycemia protocol Hydralazine HCl (Apresoline) 20 mg PO Q8 [facility] Last Admin: 09/28/18 05:24 Dose: 20 mg Insulin Detemir (Levemir) 10 units SC HS [facility] Last Admin: 09/27/18 21:21 Dose: 10 units Insulin Human Lispro (Humalog) 0 units SC [facility]; Protocol Last Admin: 09/28/18 07:23 Dose: Not Given Lacosamide (Vimpat) 100 mg PO Q12 [facility] Last Admin: 09/28/18 08:43 Dose: 100 mg Lactulose (Enulose) 20 gm PO Q12 PRN PRN Reason: Constipation Levothyroxine Sodium (Synthroid) 50 mcg PO DAILY@0630 [facility] Last Admin: 09/28/18 05:30 Dose: 50 mcg Metformin HCl (Glucophage) 850 mg PO BID [facility] Last Admin: 09/28/18 08:41 Dose: 850 mg Multivitamins/Vitamin C (Multi-Delyn Liquid) 15 ml PO DAILY [facility] Last Admin: 09/28/18 08:41 Dose: 15 ml Pantoprazole Sodium (Protonix Ec Tab) 20 mg PO DAILY [facility] Last Admin: 09/28/18 08:38 Dose: 20 mg Risperidone (Risperdal Tab) 2 mg PO Q12 [facility] Last Admin: 09/28/18 08:39 Dose: 2 mg Tamsulosin HCl (Flomax) 0.4 mg PO HS [facility] Last Admin: 09/27/18 21:21 Dose: 0.4 mg Valproate Sodium (Depakene Oral Soln) 500 mg PO Q6 [facility] Last Admin: 09/28/18 05:25 Dose: 500 mg - Labs Labs: 09/26/18 05:35 09/26/18 05:35
--- NOTE | 2018-09-28 11:00 | CP.PCM.DIS ---
Provider - Provider Date of Admission: 09/16/18 18:54 Attending physician: Kera Naylor DO Consults: 09/16/18 20:27 Physiatry Consult Routine Comment: Consulting Provider: Bandar Tyson Consulting Physician: Bandar Tyson Reason for Consult: Physiatry consult - eval and tx. 09/17/18 01:58 Pharmacist Consult As Ordered Comment: Physician Instructions: Reason For Exam: on Lovenox, medication more than 10 09/17/18 08:00 Case Management Referral Routine Comment: Physician Instructions: Reason For Exam: Reason for Referral: Discharge Planning Pastoral Care Referral Routine Comment: Physician Instructions: Reason For Exam: Patient request 09/21/18 10:58 Urology Consult Routine Comment: Consulting Provider: Cindy Dominguez Consulting Physician: Cindy Dominguez Reason for Consult: urology consult Time Spent in preparation of Discharge (in minutes): 30 Diagnosis - Discharge Diagnosis (1) Physical deconditioning Status: Acute Comment: completed therapy (2) Urinary retention Status: Resolved Comment: resolved (3) HTN (hypertension) Status: Chronic Comment: BP controlled. continue Coreq, Amlodipine and Hydralazine (4) DM2 (diabetes mellitus, type 2) Status: Chronic Comment: continue Levemir. accuchek ACHS (5) Partial epilepsy Status: Chronic Comment: continue Depakote and Vimpat (6) Hypothyroid Status: Acute Comment: continue Synthroid (7) Schizophrenia Status: Acute Hospital Course - Lab Results Lab Results: Most Recent Lab Values WBC 5.7 K/uL (4.8-10.8) 09/26/18 05:35 RBC 3.26 Mil/uL (3.80-5.20) L 09/26/18 05:35 Hgb 9.3 g/dL (12.0-16.0) L 09/26/18 05:35 Hct 27.7 % (34.0-47.0) L 09/26/18 05:35 MCV 84.8 fl (81.0-99.0) 09/26/18 05:35 MCH 28.6 pg (27.0-31.0) 09/26/18 05:35 MCHC 33.7 g/dL (33.0-37.0) 09/26/18 05:35 RDW 19.5 % (11.5-14.5) H 09/26/18 05:35 Plt Count 391 K/uL (130-400) 09/26/18 05:35 MPV 8.0 fl (7.2-11.7) 09/20/18 06:00 Neut % (Auto) 43.7 % (50.0-75.0) L 09/20/18 06:00 Lymph % (Auto) 37.8 % (20.0-40.0) 09/20/18 06:00 [place] % (Auto) 13.0 % (0.0-10.0) H 09/20/18 06:00 Eos % (Auto) 4.4 % (0.0-4.0) H 09/20/18 06:00 Baso % (Auto) 1.1 % (0.0-2.0) 09/20/18 06:00 Neut # (Auto) 2.1 K/uL (1.8-7.0) 09/20/18 06:00 Lymph # (Auto) 1.8 K/uL (1.0-4.3) 09/20/18 06:00 [place] # (Auto) 0.6 K/uL (0.0-0.8) 09/20/18 06:00 Eos # (Auto) 0.2 K/uL (0.0-0.7) 09/20/18 06:00 Baso # (Auto) 0.0 K/uL (0.0-0.2) 09/20/18 06:00 Sodium 137 mmol/l (132-148) 09/26/18 05:35 Potassium 4.0 MMOL/L (3.6-5.0) 09/26/18 05:35 Chloride 99 mmol/L (98-107) 09/26/18 05:35 Carbon Dioxide 27 mmol/L (22-30) 09/26/18 05:35 Anion Gap 15 (10-20) 09/26/18 05:35 BUN 9 mg/dl (7-17) 09/26/18 05:35 Creatinine 0.5 mg/dl (0.7-1.2) L 09/26/18 05:35 Est GFR ( Amer) > 60 09/26/18 05:35 Est GFR (Non-Af Amer) > 60 09/26/18 05:35 POC Glucose (mg/dL) 129 mg/dL (65-110) H 09/28/18 05:23 Random Glucose 148 mg/dL (65-105) H 09/26/18 05:35 Calcium 9.2 mg/dL (8.4-10.2) 09/26/18 05:35 - Hospital Course Hospital Course: 62 yo female with history of DM II, Schizophrenia and HTN initially admitted for sepsis and pneumonia was coded and was resuscitated. She was intubated and admitted in ICU where she was successfully extubated. She was transferred to Acute Rehab for further therapy. Patient also developed urinary retention and presently with indwelling olivera catheter and in the process of bladder training. Patient completed therapy and now is ready and stable for discharge to a retirement Discharge Exam - Head Exam Head Exam: ATRAUMATIC, NORMAL INSPECTION, NORMOCEPHALIC - Eye Exam Eye Exam: absent: Scleral icterus - ENT Exam ENT Exam: Mucous Membranes Moist - Respiratory Exam Respiratory Exam: absent: Rales, Rhonchi, Wheezes, Respiratory Distress - Cardiovascular Exam Cardiovascular Exam: REGULAR RHYTHM, +S1, +S2 - GI/Abdominal Exam GI & Abdominal Exam: Soft. absent: Tenderness - Rectal Exam Rectal Exam: Deferred - Neurological Exam Neurological exam: Alert, Oriented x3 - Psychiatric Exam Psychiatric exam: Normal Affect - Skin Skin Exam: Dry, Intact Discharge Plan - Discharge Medications Prescriptions: amLODIPine [Norvasc] 10 mg PO DAILY #30 tab amLODIPine [Norvasc] 10 mg PO DAILY #30 tab Atorvastatin [Lipitor] 10 mg PO HS #30 tab Atorvastatin [Lipitor] 10 mg PO DAILY #30 tab Bethanechol [Urecholine] 50 mg PO TID #90 tab Bethanechol [Urecholine] 50 mg PO TID #90 tab Carvedilol [Coreg] 25 mg PO Q12 #60 tab Carvedilol [Coreg] 25 mg PO Q12 #60 tab hydrALAZINE [Apresoline] 20 mg PO Q8 #90 tab hydrALAZINE [hydralazine Hydrochloride] 20 mg PO Q8 #180 tab Insulin Detemir [Levemir] 10 units SC HS #1 vial Insulin Detemir [Levemir] 10 units SC HS #1 vial Lacosamide [Vimpat] 100 mg PO Q12 #60 tab Lacosamide [Vimpat] 100 mg PO Q12 #60 tab Levothyroxine [Synthroid] 50 mcg PO DAILY@0630 #30 tab Levothyroxine [Synthroid] 50 mcg PO DAILY #30 tab metFORMIN [glucOPHAGE] 850 mg PO BID #60 tab metFORMIN [glucOPHAGE] 850 mg PO BID #60 tab Metformin HCl [Glucophage] 850 mg PO BID #60 tablet Pantoprazole Sodium [Protonix] 20 mg PO DAILY #30 ect Risperidone [Risperdal] 2 mg PO Q12 #60 tablet risperiDONE [RisperDAL Tab] 2 mg PO Q12 #60 tab Tamsulosin [Flomax] 0.4 mg PO HS #30 cap Tamsulosin HCl [Flomax] 0.4 mg PO HS #30 cap.er.24h Valproic Acid Oral Soln [Depakene Oral Soln] 500 mg PO Q6 #240 cup Valproic Acid Oral Soln [Depakene Oral Soln] 500 mg PO Q6 #240 cup - Follow Up Plan Condition: GOOD Disposition: HOME/ ROUTINE
[2018-09-28 16:44] VITALS: BP 131/72
== END 2018-09-28 14:48 | disposition home health service (06) | DRG 945 ==
PROVIDERS: ADMIT Student in an Organized Health Care Education/Training Program; ATTEND Student in an Organized Health Care Education/Training Program
PROC: F07Z9FZ Gait Training/Functional Ambulation Treatment using Assistive, Adaptive, Supportive or Protective Equipment (ICD-10-PCS; principal; 2018-09-16)
PROC: F07L6GZ Therapeutic Exercise Treatment of Musculoskeletal System - Lower Back / Lower Extremity using Aerobic Endurance and Conditioning Equipment (ICD-10-PCS; 2018-09-16)
PROC: F07Z8ZZ Transfer Training Treatment (ICD-10-PCS; 2018-09-16)
DX: R53.1 Weakness (principal); G40.219 Localization-related (focal) (partial) symptomatic epilepsy and epileptic syndromes with complex partial seizures, intractable, without status epilepticus; R26.9 Unspecified abnormalities of gait and mobility; K29.70 Gastritis, unspecified, without bleeding; E03.9 Hypothyroidism, unspecified; E78.00 Pure hypercholesterolemia, unspecified; F20.9 Schizophrenia, unspecified; I10 Essential (primary) hypertension; R33.9 Retention of urine, unspecified; F17.210 Nicotine dependence, cigarettes, uncomplicated; E11.9 Type 2 diabetes mellitus without complications; R13.10 Dysphagia, unspecified; Z79.4 Long term (current) use of insulin